=== PATIENT | female | born 1940 | race Caucasian/White ===

== ENCOUNTER 2016-12-20 12:21 | Outpatient (CLI) | payer MEDICARE, OTHER | END 2016-12-20 12:22 | disposition home or self-care (01) | DX: N63 Unspecified lump in breast (principal); N60.11 Diffuse cystic mastopathy of right breast | CPT/HCPCS: 76642; G0204 ==

== ENCOUNTER 2017-02-03 | Outpatient (CLI) | payer MEDICARE, OTHER | END 2017-02-03 22:21 | disposition critical access hospital (66) | DX: R06.00 Dyspnea, unspecified (principal) | CPT/HCPCS: A0425; A0427 ==

== ENCOUNTER 2017-02-03 22:34 | Inpatient (IN) | payer MEDICARE, OTHER ==
[2017-02-03] MEDS ORDERED: methylPREDNISolone SUCCINATE 125 MG/2 ML VIAL IVP ONE (22:43)
[2017-02-03] MEDS ORDERED: ALBUTEROL NEB 2.5 MG/3 ML INH ONE (22:44)
[2017-02-03] MEDS ORDERED: IPRATROPIUM/ALBUTEROL 3 ML NEB INH STA (23:19)
[2017-02-03] MEDS ORDERED: methylPREDNISolone SUCCINATE 125 MG/2 ML VIAL IVP STA (23:19)
[2017-02-03] MEDS ORDERED: ALBUTEROL NEB 2.5 MG/3 ML INH STA ×3 (23:24→23:50)
[2017-02-04] MEDS ORDERED: ALBUTEROL NEB 2.5 MG/3 ML INH ONE ×2 (00:21→00:30)
[2017-02-04] MEDS ORDERED: cefTRIAXone 1 GM in SODIUM CHLORIDE 0.9% MINIBAG 100 ML IV STA (00:36)
[2017-02-04] MEDS ORDERED: cefTRIAXone 1 GM VIAL ONE (00:40)
[2017-02-04] MEDS ORDERED: ACETAMINOPHEN 325 MG TABLET PO PRN (00:49)
[2017-02-04] MEDS ORDERED: IPRATROPIUM/ALBUTEROL 3 ML NEB INH SCH ×2 (01:00→02:00)
[2017-02-04] MEDS ORDERED: AZITHROMYCIN INJ 500 MG in SODIUM CHLORIDE 0.9% 250 ML IV STA (01:01)
[2017-02-04] MEDS ORDERED: diphenhydrAMINE 25 MG CAPSULE PO PRN (01:26)
[2017-02-04] MEDS ORDERED: SODIUM CHLORIDE 0.9% 1,000 ML IV SCH (02:00)
[2017-02-04] MEDS: guaiFENesin 600 MG TABLET PO PRN (02:05)
[2017-02-04] MEDS ORDERED: FUROSEMIDE 20 MG/2 ML VIAL IVP SCH (05:00)
[2017-02-04] MEDS: SODIUM CHLORIDE FLUSH 0.9% 10 ML SYRINGE IVP SCH ×3 (05:30→22:30)
[2017-02-04] MEDS: PANTOPRAZOLE 40 MG TABLET PO SCH (06:39)
[2017-02-04] MEDS: oxyCODONE ER 10 MG TABLET PO SCH ×3 (06:39→22:29)
[2017-02-04] MEDS ORDERED: BUDESONIDE 0.5 MG/2 ML NEB INH SCH (07:00)
[2017-02-04] MEDS: ALBUTEROL NEB 2.5 MG/3 ML INH PRN ×2 (07:46→20:35)
[2017-02-04] MEDS: FORMOTEROL FUMARATE NEB 20 MCG/2 ML INH SCH ×2 (07:46→20:35)
[2017-02-04] MEDS ORDERED: prednisoLONE 1% OPHTH DROPS 75 DROPS/5 ML BOTTLE LEFTEYE SCH (09:00)
[2017-02-04] MEDS ORDERED: IOPAMIDOL-300 100 ML VIAL IVP ONE (09:24)
[2017-02-04] MEDS: MAGNESIUM SULFATE 2 GRAM 50 ML IV SCH ×2 (09:59→10:17)
[2017-02-04] MEDS: methylPREDNISolone SUCCINATE 40 MG/ML VIAL IVP SCH ×2 (10:13→22:29)
[2017-02-04] MEDS: ENOXAPARIN 40 MG/0.4 ML SYRINGE SUBQ SCH (10:13)
[2017-02-04] MEDS: prednisoLONE 1% OPHTH DROPS 75 DROPS/5 ML BOTTLE LEFTEYE SCH ×4 (10:14→22:27)
[2017-02-04] MEDS: POLYETHYLENE GLYCOL 3350 17 GM PACKET PO SCH (10:14)
[2017-02-04] MEDS: POLYMYXIN B/TRIMETH OPHTH DROPS LEFTEYE SCH ×4 (10:15→22:27)
[2017-02-04] MEDS: SACCHAROMYCES BOULARDII 250 MG CAPSULE PO SCH ×2 (10:15→17:23)
[2017-02-04] MEDS: CALCIUM CARBONATE CHEW 500 MG TABLET PO SCH ×2 (10:15→22:29)
[2017-02-04] MEDS: miSOPROStol 200 MCG TABLET PO SCH (10:16)
[2017-02-04] MEDS: CHOLECALCIFEROL 1,000 UNIT TABLET PO SCH (10:16)
[2017-02-04] MEDS: DOCUSATE SODIUM 250 MG CAPSULE PO SCH (10:16)
[2017-02-04] MEDS: FERROUS SULFATE 325 MG TABLET PO SCH ×2 (10:16→17:23)
[2017-02-04] MEDS: ESCITALOPRAM 10 MG TABLET PO SCH (10:16)
[2017-02-04] MEDS: DICLOFENAC SODIUM DR 75 MG TABLET PO SCH (10:30)
[2017-02-04] MEDS ORDERED: A & D OINTMENT 5 GM PACKET TOP ONE (15:54)
[2017-02-04] MEDS ORDERED: traZODone 50 MG TABLET PO SCH ×2 (21:00)
[2017-02-04] MEDS: ZOLPIDEM 5 MG TABLET PO PRN (22:39)
[2017-02-05] MEDS: PANTOPRAZOLE 40 MG TABLET PO SCH (06:40)
[2017-02-05] MEDS: SODIUM CHLORIDE FLUSH 0.9% 10 ML SYRINGE IVP SCH ×3 (06:40→21:49)
[2017-02-05] MEDS: oxyCODONE ER 10 MG TABLET PO SCH ×3 (06:40→21:49)
[2017-02-05] MEDS: FORMOTEROL FUMARATE NEB 20 MCG/2 ML INH SCH ×2 (07:15→21:05)
[2017-02-05] MEDS: ALBUTEROL NEB 2.5 MG/3 ML INH SCH ×4 (07:15→21:07)
[2017-02-05] MEDS: POLYETHYLENE GLYCOL 3350 17 GM PACKET PO SCH (08:56)
[2017-02-05] MEDS: CALCIUM CARBONATE CHEW 500 MG TABLET PO SCH ×2 (08:58→21:48)
[2017-02-05] MEDS: POLYMYXIN B/TRIMETH OPHTH DROPS LEFTEYE SCH ×4 (08:59→21:48)
[2017-02-05] MEDS: prednisoLONE 1% OPHTH DROPS 75 DROPS/5 ML BOTTLE LEFTEYE SCH ×4 (08:59→21:48)
[2017-02-05] MEDS: FERROUS SULFATE 325 MG TABLET PO SCH ×2 (08:59→17:56)
[2017-02-05] MEDS: SACCHAROMYCES BOULARDII 250 MG CAPSULE PO SCH ×2 (08:59→17:56)
[2017-02-05] MEDS: DOCUSATE SODIUM 250 MG CAPSULE PO SCH (09:02)
[2017-02-05] MEDS: DICLOFENAC SODIUM DR 75 MG TABLET PO SCH (09:02)
[2017-02-05] MEDS: CHOLECALCIFEROL 1,000 UNIT TABLET PO SCH (09:02)
[2017-02-05] MEDS: ESCITALOPRAM 10 MG TABLET PO SCH (09:03)
[2017-02-05] MEDS: cefTRIAXone 2 GM in SODIUM CHLORIDE 0.9% MINIBAG 100 ML IV SCH (09:03)
[2017-02-05] MEDS: ENOXAPARIN 40 MG/0.4 ML SYRINGE SUBQ SCH (09:03)
[2017-02-05] MEDS: miSOPROStol 200 MCG TABLET PO SCH (09:03)
[2017-02-05] MEDS: methylPREDNISolone SUCCINATE 40 MG/ML VIAL IVP SCH ×2 (09:04→21:48)
[2017-02-05] MEDS ORDERED: [UNRECOGNIZED DRUG - OTHER] PO SCH (10:45)
[2017-02-05] MEDS ORDERED: DICLOFENAC SODIUM PO SCH (10:45)
[2017-02-05] MEDS ORDERED: diphenhydrAMINE 25 MG CAPSULE PO PRN (10:45)
[2017-02-05] MEDS ORDERED: ZOLPIDEM 5 MG TABLET PO PRN (10:45)
[2017-02-05] MEDS ORDERED: MISOPROSTOL PO SCH (10:45)
[2017-02-05] MEDS ORDERED: ACETAMINOPHEN 325 MG TABLET PO PRN (11:34)
[2017-02-05] MEDS: SODIUM CHLORIDE 0.45% 1,000 ML IV SCH (12:19)
[2017-02-05] MEDS: AZITHROMYCIN INJ 500 MG in SODIUM CHLORIDE 0.9% 250 ML IV SCH (13:47)
[2017-02-05] MEDS: ONDANSETRON 4 MG/2 ML VIAL IVP PRN (14:34)
[2017-02-05] MEDS ORDERED: traZODone 50 MG TABLET PO SCH (21:00)
[2017-02-05] MEDS: traZODone 50 MG TABLET PO SCH (21:48)
[2017-02-05] MEDS: ATORVASTATIN 10 MG TABLET PO SCH (21:48)
[2017-02-05] MEDS: ZOLPIDEM 5 MG TABLET PO PRN (22:06)
[2017-02-06] MEDS: SODIUM CHLORIDE 0.45% 1,000 ML IV SCH ×2 (02:28→16:19)
[2017-02-06] MEDS: SODIUM CHLORIDE FLUSH 0.9% 10 ML SYRINGE IVP SCH ×3 (04:26→21:40)
[2017-02-06] MEDS: PANTOPRAZOLE 40 MG TABLET PO SCH (05:54)
[2017-02-06] MEDS: oxyCODONE ER 10 MG TABLET PO SCH ×3 (05:54→21:52)
[2017-02-06] MEDS: FORMOTEROL FUMARATE NEB 20 MCG/2 ML INH SCH ×2 (07:48→20:15)
[2017-02-06] MEDS: ALBUTEROL NEB 2.5 MG/3 ML INH PRN (07:49)
[2017-02-06] MEDS: ENOXAPARIN 40 MG/0.4 ML SYRINGE SUBQ SCH (09:59)
[2017-02-06] MEDS: POLYETHYLENE GLYCOL 3350 17 GM PACKET PO SCH (09:59)
[2017-02-06] MEDS: SACCHAROMYCES BOULARDII 250 MG CAPSULE PO SCH ×2 (10:00→16:19)
[2017-02-06] MEDS: CALCIUM CARBONATE CHEW 500 MG TABLET PO SCH ×2 (10:00→21:44)
[2017-02-06] MEDS: FERROUS SULFATE 325 MG TABLET PO SCH ×2 (10:00→16:20)
[2017-02-06] MEDS: CHOLECALCIFEROL 1,000 UNIT TABLET PO SCH (10:00)
[2017-02-06] MEDS: DICLOFENAC SODIUM DR 75 MG TABLET PO SCH (10:01)
[2017-02-06] MEDS: DOCUSATE SODIUM 250 MG CAPSULE PO SCH (10:01)
[2017-02-06] MEDS: CITALOPRAM 10 MG TABLET PO SCH (10:01)
[2017-02-06] MEDS: miSOPROStol 200 MCG TABLET PO SCH (10:01)
[2017-02-06] MEDS: cefTRIAXone 2 GM in SODIUM CHLORIDE 0.9% MINIBAG 100 ML IV SCH (10:02)
[2017-02-06] MEDS: methylPREDNISolone SUCCINATE 40 MG/ML VIAL IVP SCH ×3 (10:02→21:45)
[2017-02-06] MEDS: POLYMYXIN B/TRIMETH OPHTH DROPS LEFTEYE SCH ×4 (10:03→21:44)
[2017-02-06] MEDS: prednisoLONE 1% OPHTH DROPS 75 DROPS/5 ML BOTTLE LEFTEYE SCH ×4 (10:03→21:43)
[2017-02-06] MEDS: AZITHROMYCIN INJ 500 MG in SODIUM CHLORIDE 0.9% 250 ML IV SCH (10:53)
[2017-02-06] MEDS ORDERED: MORPHINE 2 MG/ML SYRINGE IVP PRN (10:54)
[2017-02-06] MEDS: IPRATROPIUM/ALBUTEROL 3 ML NEB INH SCH ×4 (11:12→20:15)
[2017-02-06] MEDS: MORPHINE 2 MG/ML SYRINGE IVP PRN (11:50)
[2017-02-06] MEDS: HYDROcod/ACETAM 5/325 MG TABLET PO PRN (16:19)
[2017-02-06] MEDS: guaiFENesin 600 MG TABLET PO PRN (16:20)
[2017-02-06] MEDS ORDERED: PIPERACILLIN/TAZOBACTAM 3.375 GM in SODIUM CHLORIDE 0.9% MINIBAG 100 ML IV ONE (19:00)
[2017-02-06] MEDS: PIPERACILLIN/TAZOBACTAM 3.375 GM in SODIUM CHLORIDE 0.9% MINIBAG 100 ML IV SCH (20:12)
[2017-02-06] MEDS: traZODone 50 MG TABLET PO SCH (21:44)
[2017-02-06] MEDS: ATORVASTATIN 10 MG TABLET PO SCH (21:44)
[2017-02-06] MEDS: ZOLPIDEM 5 MG TABLET PO PRN (21:44)
[2017-02-07] MEDS: MORPHINE 2 MG/ML SYRINGE IVP PRN (00:29)
[2017-02-07] MEDS: IPRATROPIUM/ALBUTEROL 3 ML NEB INH SCH ×6 (01:00→16:45)
[2017-02-07] MEDS: PIPERACILLIN/TAZOBACTAM 3.375 GM in SODIUM CHLORIDE 0.9% MINIBAG 100 ML IV SCH (03:47)
[2017-02-07] MEDS: HYDROcod/ACETAM 5/325 MG TABLET PO PRN ×2 (03:54→19:52)
[2017-02-07] MEDS: SODIUM CHLORIDE 0.45% 1,000 ML IV SCH (05:01)
[2017-02-07] MEDS: PANTOPRAZOLE 40 MG TABLET PO SCH (06:27)
[2017-02-07] MEDS: SODIUM CHLORIDE FLUSH 0.9% 10 ML SYRINGE IVP SCH ×3 (06:27→22:33)
[2017-02-07] MEDS: oxyCODONE ER 10 MG TABLET PO SCH ×3 (06:27→22:32)
[2017-02-07] MEDS: methylPREDNISolone SUCCINATE 40 MG/ML VIAL IVP SCH ×3 (06:27→22:33)
[2017-02-07] MEDS: ONDANSETRON 4 MG/2 ML VIAL IVP PRN (07:53)
[2017-02-07] MEDS: CHOLECALCIFEROL 1,000 UNIT TABLET PO SCH (08:36)
[2017-02-07] MEDS: miSOPROStol 200 MCG TABLET PO SCH (08:37)
[2017-02-07] MEDS: DICLOFENAC SODIUM DR 75 MG TABLET PO SCH (08:37)
[2017-02-07] MEDS: CALCIUM CARBONATE CHEW 500 MG TABLET PO SCH ×2 (08:38→20:02)
[2017-02-07] MEDS: ENOXAPARIN 40 MG/0.4 ML SYRINGE SUBQ SCH (08:38)
[2017-02-07] MEDS: FERROUS SULFATE 325 MG TABLET PO SCH ×2 (08:40→17:43)
[2017-02-07] MEDS: DOCUSATE SODIUM 250 MG CAPSULE PO SCH (08:40)
[2017-02-07] MEDS: SACCHAROMYCES BOULARDII 250 MG CAPSULE PO SCH ×2 (08:40→17:43)
[2017-02-07] MEDS: CITALOPRAM 10 MG TABLET PO SCH (08:40)
[2017-02-07] MEDS: POLYETHYLENE GLYCOL 3350 17 GM PACKET PO SCH (08:41)
[2017-02-07] MEDS: prednisoLONE 1% OPHTH DROPS 75 DROPS/5 ML BOTTLE LEFTEYE SCH ×4 (08:43→21:23)
[2017-02-07] MEDS: POLYMYXIN B/TRIMETH OPHTH DROPS LEFTEYE SCH ×4 (08:44→21:20)
[2017-02-07] MEDS ORDERED: FUROSEMIDE 40 MG/4 ML VIAL IVP ONE (08:45)
[2017-02-07] MEDS ORDERED: cefTRIAXone 2 GM in SODIUM CHLORIDE 0.9% MINIBAG 100 ML IV SCH (09:00)
[2017-02-07] MEDS: AZITHROMYCIN INJ 500 MG in SODIUM CHLORIDE 0.9% 250 ML IV SCH (09:31)
[2017-02-07] MEDS: FORMOTEROL FUMARATE NEB 20 MCG/2 ML INH SCH ×2 (09:39→16:45)
[2017-02-07] MEDS: CLINDAMYCIN 600 MG/50 ML 50 ML IV SCH ×3 (11:35→23:43)
[2017-02-07] MEDS ORDERED: CLINDAMYCIN INJ 300 MG in SODIUM CHLORIDE 0.9% 50 ML IV SCH (12:00)
[2017-02-07] MEDS: FUROSEMIDE 20 MG TABLET PO SCH (13:52)
[2017-02-07] MEDS: SODIUM CHLORIDE FLUSH 0.9% 10 ML SYRINGE IVP PRN ×2 (17:47→17:50)
[2017-02-07] MEDS: METOPROLOL SUCCINATE 25 MG TABLET PO SCH (21:20)
[2017-02-07] MEDS: ATORVASTATIN 10 MG TABLET PO SCH (21:20)
[2017-02-07] MEDS: traZODone 50 MG TABLET PO SCH (22:32)
[2017-02-07] MEDS: ZOLPIDEM 5 MG TABLET PO PRN (22:32)
[2017-02-08] MEDS: oxyCODONE ER 10 MG TABLET PO SCH ×3 (06:07→22:27)
[2017-02-08] MEDS: PANTOPRAZOLE 40 MG TABLET PO SCH (06:07)
[2017-02-08] MEDS: FUROSEMIDE 20 MG TABLET PO SCH ×2 (06:07→13:24)
[2017-02-08] MEDS: SODIUM CHLORIDE FLUSH 0.9% 10 ML SYRINGE IVP SCH ×3 (06:07→10:44)
[2017-02-08] MEDS: methylPREDNISolone SUCCINATE 40 MG/ML VIAL IVP SCH ×3 (06:07→22:28)
[2017-02-08] MEDS: CLINDAMYCIN 600 MG/50 ML 50 ML IV SCH ×3 (07:16→17:29)
[2017-02-08] MEDS: HYDROcod/ACETAM 5/325 MG TABLET PO PRN (07:22)
[2017-02-08] MEDS: POLYMYXIN B/TRIMETH OPHTH DROPS LEFTEYE SCH ×4 (08:35→21:25)
[2017-02-08] MEDS: miSOPROStol 200 MCG TABLET PO SCH (08:36)
[2017-02-08] MEDS: DICLOFENAC SODIUM DR 75 MG TABLET PO SCH (08:36)
[2017-02-08] MEDS: FERROUS SULFATE 325 MG TABLET PO SCH ×2 (08:36→17:25)
[2017-02-08] MEDS: SACCHAROMYCES BOULARDII 250 MG CAPSULE PO SCH ×2 (08:37→17:24)
[2017-02-08] MEDS: METOPROLOL SUCCINATE 25 MG TABLET PO SCH ×2 (08:37→21:30)
[2017-02-08] MEDS: DOCUSATE SODIUM 250 MG CAPSULE PO SCH (08:37)
[2017-02-08] MEDS: CITALOPRAM 10 MG TABLET PO SCH (08:37)
[2017-02-08] MEDS: CHOLECALCIFEROL 1,000 UNIT TABLET PO SCH (08:38)
[2017-02-08] MEDS: ENOXAPARIN 40 MG/0.4 ML SYRINGE SUBQ SCH (08:40)
[2017-02-08] MEDS: CALCIUM CARBONATE CHEW 500 MG TABLET PO SCH ×2 (08:41→21:26)
[2017-02-08] MEDS: POLYETHYLENE GLYCOL 3350 17 GM PACKET PO SCH (08:41)
[2017-02-08] MEDS: prednisoLONE 1% OPHTH DROPS 75 DROPS/5 ML BOTTLE LEFTEYE SCH ×4 (08:42→21:32)
[2017-02-08] MEDS: AZITHROMYCIN INJ 500 MG in SODIUM CHLORIDE 0.9% 250 ML IV SCH (09:40)
[2017-02-08] MEDS: FORMOTEROL FUMARATE NEB 20 MCG/2 ML INH SCH ×2 (09:54→20:55)
[2017-02-08] MEDS: IPRATROPIUM/ALBUTEROL 3 ML NEB INH SCH ×4 (09:55→21:09)
[2017-02-08] MEDS: ONDANSETRON 4 MG/2 ML VIAL IVP PRN (10:44)
[2017-02-08] MEDS ORDERED: SODIUM CHLORIDE 0.9% 100ML 100 ML IV ONE (17:11)
[2017-02-08] MEDS: guaiFENesin 600 MG TABLET PO PRN (17:24)
[2017-02-08] MEDS: SODIUM CHLORIDE FLUSH 0.9% 10 ML SYRINGE IVP PRN ×2 (17:27→22:28)
[2017-02-08] MEDS: ATORVASTATIN 10 MG TABLET PO SCH (21:26)
[2017-02-08] MEDS: DIPHENOX/ATROPINE 2.5/0.025 MG TABLET PO PRN (21:26)
[2017-02-08] MEDS: traZODone 50 MG TABLET PO SCH (22:27)
[2017-02-08] MEDS: ZOLPIDEM 5 MG TABLET PO PRN (22:27)
[2017-02-09] MEDS: CLINDAMYCIN 600 MG/50 ML 50 ML IV SCH ×3 (00:22→13:05)
[2017-02-09] MEDS: oxyCODONE ER 10 MG TABLET PO SCH ×3 (06:17→22:14)
[2017-02-09] MEDS: FUROSEMIDE 20 MG TABLET PO SCH ×2 (06:17→14:29)
[2017-02-09] MEDS: SODIUM CHLORIDE FLUSH 0.9% 10 ML SYRINGE IVP SCH ×3 (06:17→22:14)
[2017-02-09] MEDS: PANTOPRAZOLE 40 MG TABLET PO SCH (06:17)
[2017-02-09] MEDS: methylPREDNISolone SUCCINATE 40 MG/ML VIAL IVP SCH ×2 (06:17→14:30)
[2017-02-09] MEDS: IPRATROPIUM/ALBUTEROL 3 ML NEB INH SCH ×4 (07:45→20:10)
[2017-02-09] MEDS: FORMOTEROL FUMARATE NEB 20 MCG/2 ML INH SCH ×2 (07:49→20:10)
[2017-02-09] MEDS: DOCUSATE SODIUM 250 MG CAPSULE PO SCH (07:54)
[2017-02-09] MEDS: POLYETHYLENE GLYCOL 3350 17 GM PACKET PO SCH (07:55)
[2017-02-09] MEDS: SACCHAROMYCES BOULARDII 250 MG CAPSULE PO SCH ×2 (09:47→17:24)
[2017-02-09] MEDS: METOPROLOL SUCCINATE 25 MG TABLET PO SCH ×2 (09:47→21:59)
[2017-02-09] MEDS: CALCIUM CARBONATE CHEW 500 MG TABLET PO SCH ×2 (09:47→21:55)
[2017-02-09] MEDS: CITALOPRAM 10 MG TABLET PO SCH (09:48)
[2017-02-09] MEDS: AZITHROMYCIN INJ 500 MG in SODIUM CHLORIDE 0.9% 250 ML IV SCH (09:48)
[2017-02-09] MEDS: miSOPROStol 200 MCG TABLET PO SCH (09:48)
[2017-02-09] MEDS: DICLOFENAC SODIUM DR 75 MG TABLET PO SCH (09:48)
[2017-02-09] MEDS: FERROUS SULFATE 325 MG TABLET PO SCH ×2 (09:48→17:24)
[2017-02-09] MEDS: ENOXAPARIN 40 MG/0.4 ML SYRINGE SUBQ SCH (09:48)
[2017-02-09] MEDS: SODIUM CHLORIDE FLUSH 0.9% 10 ML SYRINGE IVP PRN ×3 (09:48→19:06)
[2017-02-09] MEDS: POLYMYXIN B/TRIMETH OPHTH DROPS LEFTEYE SCH ×4 (09:52→21:53)
[2017-02-09] MEDS: prednisoLONE 1% OPHTH DROPS 75 DROPS/5 ML BOTTLE LEFTEYE SCH ×4 (09:52→21:58)
[2017-02-09] MEDS: CHOLECALCIFEROL 1,000 UNIT TABLET PO SCH (10:18)
[2017-02-09] MEDS: MORPHINE 2 MG/ML SYRINGE IVP PRN (13:04)
[2017-02-09] MEDS ORDERED: POTASSIUM CHLORIDE 20 MEQ TABLET PO SCH (14:00)
[2017-02-09] MEDS: guaiFENesin 600 MG TABLET PO SCH ×2 (14:30→21:53)
[2017-02-09] MEDS ORDERED: FUROSEMIDE 20 MG/2 ML VIAL IVP SCH (16:00)
[2017-02-09] MEDS: predniSONE 20 MG TABLET PO SCH (16:19)
[2017-02-09] MEDS: VANCOMYCIN INJ 1 GM in SODIUM CHLORIDE 0.9% 250 ML IV SCH (17:24)
[2017-02-09] MEDS: HYDROcod/ACETAM 5/325 MG TABLET PO PRN (19:21)
[2017-02-09] MEDS: ATORVASTATIN 10 MG TABLET PO SCH (21:53)
[2017-02-09] MEDS: ZOLPIDEM 5 MG TABLET PO PRN (22:14)
[2017-02-09] MEDS: traZODone 50 MG TABLET PO SCH (22:14)
[2017-02-10] MEDS: DIPHENOX/ATROPINE 2.5/0.025 MG TABLET PO PRN ×5 (03:41→19:37)
[2017-02-10] MEDS: oxyCODONE ER 10 MG TABLET PO SCH ×3 (05:54→22:22)
[2017-02-10] MEDS: FUROSEMIDE 20 MG TABLET PO SCH ×2 (05:54→14:14)
[2017-02-10] MEDS: SODIUM CHLORIDE FLUSH 0.9% 10 ML SYRINGE IVP SCH ×3 (06:00→22:22)
[2017-02-10] MEDS: PANTOPRAZOLE 40 MG TABLET PO SCH (06:00)
[2017-02-10] MEDS: FERROUS SULFATE 325 MG TABLET PO SCH ×2 (07:49→17:46)
[2017-02-10] MEDS: SACCHAROMYCES BOULARDII 250 MG CAPSULE PO SCH ×2 (07:50→17:46)
[2017-02-10] MEDS: predniSONE 20 MG TABLET PO SCH (07:50)
[2017-02-10] MEDS: HYDROcod/ACETAM 5/325 MG TABLET PO PRN ×2 (07:50→20:09)
[2017-02-10] MEDS: diphenhydrAMINE 25 MG CAPSULE PO PRN (07:51)
[2017-02-10] MEDS: FORMOTEROL FUMARATE NEB 20 MCG/2 ML INH SCH ×2 (07:51→19:50)
[2017-02-10] MEDS: IPRATROPIUM/ALBUTEROL 3 ML NEB INH SCH ×4 (07:51→19:50)
[2017-02-10] MEDS: prednisoLONE 1% OPHTH DROPS 75 DROPS/5 ML BOTTLE LEFTEYE SCH ×4 (08:48→20:40)
[2017-02-10] MEDS: POLYMYXIN B/TRIMETH OPHTH DROPS LEFTEYE SCH ×4 (08:49→20:35)
[2017-02-10] MEDS: ENOXAPARIN 40 MG/0.4 ML SYRINGE SUBQ SCH (08:49)
[2017-02-10] MEDS: DICLOFENAC SODIUM DR 75 MG TABLET PO SCH (08:50)
[2017-02-10] MEDS: CHOLECALCIFEROL 1,000 UNIT TABLET PO SCH (08:50)
[2017-02-10] MEDS: METOPROLOL SUCCINATE 25 MG TABLET PO SCH ×2 (08:50→20:40)
[2017-02-10] MEDS: CITALOPRAM 10 MG TABLET PO SCH (08:50)
[2017-02-10] MEDS: guaiFENesin 600 MG TABLET PO SCH ×2 (08:50→20:36)
[2017-02-10] MEDS: CALCIUM CARBONATE CHEW 500 MG TABLET PO SCH ×2 (08:50→20:40)
[2017-02-10] MEDS: miSOPROStol 200 MCG TABLET PO SCH (08:50)
[2017-02-10] MEDS ORDERED: SODIUM CHLORIDE 0.9% 250 ML IV ONE (09:02)
[2017-02-10] MEDS: AZITHROMYCIN INJ 500 MG in SODIUM CHLORIDE 0.9% 250 ML IV SCH (09:11)
[2017-02-10] MEDS: SODIUM CHLORIDE FLUSH 0.9% 10 ML SYRINGE IVP PRN ×2 (09:16→17:46)
[2017-02-10] MEDS: POLYETHYLENE GLYCOL 3350 17 GM PACKET PO SCH (10:36)
[2017-02-10] MEDS: DOCUSATE SODIUM 250 MG CAPSULE PO SCH (10:36)
[2017-02-10] MEDS ORDERED: POTASSIUM CHLORIDE 20 MEQ TABLET PO SCH (15:00)
[2017-02-10] MEDS: POTASSIUM CHLORIDE 20 MEQ TABLET PO SCH ×2 (15:50→22:21)
[2017-02-10] MEDS: VANCOMYCIN INJ 1 GM in SODIUM CHLORIDE 0.9% 250 ML IV SCH (17:46)
[2017-02-10] MEDS: ATORVASTATIN 10 MG TABLET PO SCH (20:40)
[2017-02-10] MEDS: traZODone 50 MG TABLET PO SCH (22:21)
[2017-02-10] MEDS: ZOLPIDEM 5 MG TABLET PO PRN (22:22)
[2017-02-11] MEDS: SODIUM CHLORIDE FLUSH 0.9% 10 ML SYRINGE IVP SCH ×3 (05:58→22:19)
[2017-02-11] MEDS: FUROSEMIDE 20 MG TABLET PO SCH ×2 (05:59→14:23)
[2017-02-11] MEDS: oxyCODONE ER 10 MG TABLET PO SCH ×3 (05:59→22:19)
[2017-02-11] MEDS: PANTOPRAZOLE 40 MG TABLET PO SCH (06:00)
[2017-02-11] MEDS: CHOLECALCIFEROL 1,000 UNIT TABLET PO SCH (08:48)
[2017-02-11] MEDS: HYDROcod/ACETAM 5/325 MG TABLET PO PRN ×2 (08:48→20:46)
[2017-02-11] MEDS: SACCHAROMYCES BOULARDII 250 MG CAPSULE PO SCH ×2 (08:48→17:41)
[2017-02-11] MEDS: DICLOFENAC SODIUM DR 75 MG TABLET PO SCH (08:49)
[2017-02-11] MEDS: LISINOPRIL 5 MG TABLET PO SCH (08:49)
[2017-02-11] MEDS: CITALOPRAM 10 MG TABLET PO SCH (08:50)
[2017-02-11] MEDS: METOPROLOL SUCCINATE 25 MG TABLET PO SCH ×2 (08:50→20:58)
[2017-02-11] MEDS: guaiFENesin 600 MG TABLET PO SCH ×2 (08:50→20:52)
[2017-02-11] MEDS: FERROUS SULFATE 325 MG TABLET PO SCH ×2 (08:50→17:41)
[2017-02-11] MEDS: miSOPROStol 200 MCG TABLET PO SCH (08:50)
[2017-02-11] MEDS: POLYMYXIN B/TRIMETH OPHTH DROPS LEFTEYE SCH ×4 (08:51→21:03)
[2017-02-11] MEDS: prednisoLONE 1% OPHTH DROPS 75 DROPS/5 ML BOTTLE LEFTEYE SCH ×4 (08:53→20:58)
[2017-02-11] MEDS: CALCIUM CARBONATE CHEW 500 MG TABLET PO SCH ×2 (08:53→20:52)
[2017-02-11] MEDS: ENOXAPARIN 40 MG/0.4 ML SYRINGE SUBQ SCH (08:54)
[2017-02-11] MEDS: POLYETHYLENE GLYCOL 3350 17 GM PACKET PO SCH (08:56)
[2017-02-11] MEDS: IPRATROPIUM/ALBUTEROL 3 ML NEB INH SCH ×4 (09:15→20:00)
[2017-02-11] MEDS: FORMOTEROL FUMARATE NEB 20 MCG/2 ML INH SCH ×2 (09:15→20:00)
[2017-02-11] MEDS: DOCUSATE SODIUM 250 MG CAPSULE PO SCH (10:03)
[2017-02-11] MEDS: DIPHENOX/ATROPINE 2.5/0.025 MG TABLET PO PRN ×5 (10:43→22:52)
[2017-02-11] MEDS: VANCOMYCIN INJ 1 GM in SODIUM CHLORIDE 0.9% 250 ML IV SCH (18:25)
[2017-02-11] MEDS: ATORVASTATIN 10 MG TABLET PO SCH (20:52)
[2017-02-11] MEDS: diphenhydrAMINE 25 MG CAPSULE PO PRN (21:02)
[2017-02-11] MEDS: traZODone 50 MG TABLET PO SCH (22:19)
[2017-02-11] MEDS: ZOLPIDEM 5 MG TABLET PO PRN (22:19)
[2017-02-12] MEDS: PANTOPRAZOLE 40 MG TABLET PO SCH (06:15)
[2017-02-12] MEDS: SODIUM CHLORIDE FLUSH 0.9% 10 ML SYRINGE IVP SCH ×2 (06:16→14:15)
[2017-02-12] MEDS: FUROSEMIDE 20 MG TABLET PO SCH ×2 (06:16→14:14)
[2017-02-12] MEDS: oxyCODONE ER 10 MG TABLET PO SCH (06:16)
[2017-02-12] MEDS: DIPHENOX/ATROPINE 2.5/0.025 MG TABLET PO PRN (07:40)
[2017-02-12] MEDS: LISINOPRIL 5 MG TABLET PO SCH (08:30)
[2017-02-12] MEDS: HYDROcod/ACETAM 5/325 MG TABLET PO PRN ×2 (08:31→12:05)
[2017-02-12] MEDS: guaiFENesin 600 MG TABLET PO SCH (08:31)
[2017-02-12] MEDS: SACCHAROMYCES BOULARDII 250 MG CAPSULE PO SCH (08:31)
[2017-02-12] MEDS: FERROUS SULFATE 325 MG TABLET PO SCH (08:32)
[2017-02-12] MEDS: miSOPROStol 200 MCG TABLET PO SCH (08:32)
[2017-02-12] MEDS: DICLOFENAC SODIUM DR 75 MG TABLET PO SCH (08:32)
[2017-02-12] MEDS: CITALOPRAM 10 MG TABLET PO SCH (08:32)
[2017-02-12] MEDS: CHOLECALCIFEROL 1,000 UNIT TABLET PO SCH (08:33)
[2017-02-12] MEDS: POLYMYXIN B/TRIMETH OPHTH DROPS LEFTEYE SCH ×2 (08:34→13:28)
[2017-02-12] MEDS: CALCIUM CARBONATE CHEW 500 MG TABLET PO SCH (08:34)
[2017-02-12] MEDS: ENOXAPARIN 40 MG/0.4 ML SYRINGE SUBQ SCH (08:34)
[2017-02-12] MEDS: prednisoLONE 1% OPHTH DROPS 75 DROPS/5 ML BOTTLE LEFTEYE SCH ×2 (08:34→13:27)
[2017-02-12] MEDS: POLYETHYLENE GLYCOL 3350 17 GM PACKET PO SCH (08:35)
[2017-02-12] MEDS: METOPROLOL SUCCINATE 25 MG TABLET PO SCH (08:37)
[2017-02-12] MEDS: DOCUSATE SODIUM 250 MG CAPSULE PO SCH (08:37)
[2017-02-12] MEDS: FORMOTEROL FUMARATE NEB 20 MCG/2 ML INH SCH (10:51)
[2017-02-12] MEDS: IPRATROPIUM/ALBUTEROL 3 ML NEB INH SCH ×3 (10:51→14:45)
[2017-02-12] MEDS ORDERED: oxyCODONE 5 MG TABLET PO PRN (13:20)
[2017-02-12] MEDS ORDERED: SIMETHICONE 40 MG/0.6 ML 30 ML BOTTLE PO PRN (13:21)
[2017-02-12] MEDS ORDERED: SIMETHICONE CHEW 80 MG TABLET PO PRN (14:00)
== END 2017-02-12 16:02 | disposition home or self-care (01) | DRG 190 ==
DX: J44.9 Chronic obstructive pulmonary disease, unspecified (principal); J18.9 Pneumonia, unspecified organism; E78.00 Pure hypercholesterolemia, unspecified; J96.21 Acute and chronic respiratory failure with hypoxia; M19.90 Unspecified osteoarthritis, unspecified site; J15.211 Pneumonia due to Methicillin susceptible Staphylococcus aureus; J44.0 Chronic obstructive pulmonary disease with (acute) lower respiratory infection; J44.1 Chronic obstructive pulmonary disease with (acute) exacerbation; K52.1 Toxic gastroenteritis and colitis; L76.32 Postprocedural hematoma of skin and subcutaneous tissue following other procedure; I50.9 Heart failure, unspecified; T36.8X5A Adverse effect of other systemic antibiotics, initial encounter; R79.89 Other specified abnormal findings of blood chemistry; Y84.8 Other medical procedures as the cause of abnormal reaction of the patient, or of later complication, without mention of misadventure at the time of the procedure; I27.2 Other secondary pulmonary hypertension; R73.9 Hyperglycemia, unspecified; T38.0X5A Adverse effect of glucocorticoids and synthetic analogues, initial encounter; Y92.230 Patient room in hospital as the place of occurrence of the external cause; Z99.81 Dependence on supplemental oxygen; K21.9 Gastro-esophageal reflux disease without esophagitis; G89.29 Other chronic pain; M48.00 Spinal stenosis, site unspecified; M47.9 Spondylosis, unspecified; E78.5 Hyperlipidemia, unspecified; D64.9 Anemia, unspecified; Z87.891 Personal history of nicotine dependence; Z87.898 Personal history of other specified conditions; Z79.891 Long term (current) use of opiate analgesic; Z79.51 Long term (current) use of inhaled steroids; Z79.899 Other long term (current) drug therapy; Z48.810 Encounter for surgical aftercare following surgery on the sense organs

== ENCOUNTER 2017-02-12 20:35 | Outpatient (CLI) | payer MEDICARE, OTHER | END 2017-02-12 20:36 | disposition critical access hospital (66) | DX: R10.9 Unspecified abdominal pain (principal); R11.11 Vomiting without nausea; R19.7 Diarrhea, unspecified | CPT/HCPCS: A0425; A0429 ==

== ENCOUNTER 2017-02-12 20:50 | Emergency (ER) | payer MEDICARE, OTHER ==
[2017-02-12] MEDS ORDERED: ONDANSETRON ODT 4 MG TABLET TL STA (21:52)
[2017-02-12] MEDS ORDERED: ONDANSETRON ODT 4 MG TABLET ONE (22:02)
[2017-02-13] MEDS ORDERED: oxyCODONE 5 MG TABLET PO STA (08:00)
[2017-02-13] MEDS ORDERED: oxyCODONE 5 MG TABLET ONE (08:02)
== END 2017-02-13 08:48 | disposition home or self-care (01) ==
DX: S30.1XXA Contusion of abdominal wall, initial encounter (principal); X58.XXXA Exposure to other specified factors, initial encounter; R19.7 Diarrhea, unspecified; R11.0 Nausea; J44.9 Chronic obstructive pulmonary disease, unspecified; K21.9 Gastro-esophageal reflux disease without esophagitis; E78.00 Pure hypercholesterolemia, unspecified; Z87.01 Personal history of pneumonia (recurrent)
CPT/HCPCS: 99283; 99284; A9270; Q0162

== ENCOUNTER 2017-02-19 07:38 | Outpatient (CLI) | payer MEDICARE, OTHER | END 2017-02-19 07:39 | disposition critical access hospital (66) | DX: M79.604 Pain in right leg (principal) | CPT/HCPCS: A0425; A0429 ==

== ENCOUNTER 2017-02-19 07:54 | Emergency (ER) | payer MEDICARE, OTHER ==
[2017-02-19] MEDS ORDERED: ONDANSETRON 4 MG/2 ML VIAL IVP STA (08:23)
[2017-02-19] MEDS ORDERED: SODIUM CHLORIDE 0.9% 1,000 ML IV ONE (08:23)
[2017-02-19] MEDS ORDERED: HYDROmorphone 1 MG/ML SYRINGE IVP STA (08:23)
[2017-02-19] MEDS ORDERED: HYDROmorphone 1 MG/ML SYRINGE ONE (08:37)
[2017-02-19] MEDS ORDERED: ONDANSETRON 4 MG/2 ML VIAL ONE (08:37)
[2017-02-19] MEDS ORDERED: SODIUM CHLORIDE 0.9% 500 ML IV ONE (09:41)
[2017-02-19] MEDS ORDERED: cefTRIAXone 1 GM in SODIUM CHLORIDE 0.9% MINIBAG 100 ML IV STA (11:45)
[2017-02-19] MEDS ORDERED: cefTRIAXone 1 GM VIAL ONE (11:54)
[2017-02-19] MEDS ORDERED: oxyCOD/ACETAMIN 5 MG/325 MG TABLET PO ONE (12:17)
[2017-02-19] MEDS ORDERED: oxyCOD/ACETAMIN 5 MG/325 MG TABLET PO STA (12:17)
== END 2017-02-19 13:09 | disposition home or self-care (01) ==
DX: S82.54XA Nondisplaced fracture of medial malleolus of right tibia, initial encounter for closed fracture (principal); S92.524A Nondisplaced fracture of middle phalanx of right lesser toe(s), initial encounter for closed fracture; W18.39XA Other fall on same level, initial encounter; Y93.89 Activity, other specified; Y92.099 Unspecified place in other non-institutional residence as the place of occurrence of the external cause; N30.00 Acute cystitis without hematuria; E86.0 Dehydration; K52.1 Toxic gastroenteritis and colitis; T36.95XA Adverse effect of unspecified systemic antibiotic, initial encounter; J44.9 Chronic obstructive pulmonary disease, unspecified; Z87.01 Personal history of pneumonia (recurrent)
CPT/HCPCS: 29515; 36415; 73610; 73630; 80053; 81001; 83690; 84484; 85025; 87086; 96374; 96375; 99284; A9270; J1170

== ENCOUNTER 2017-02-22 08:00 | Outpatient (CLI) | payer MEDICARE, OTHER | END 2017-02-22 23:59 | DX: R19.5 Other fecal abnormalities (principal) ==

== ENCOUNTER 2017-02-27 18:31 | Outpatient (CLI) | payer MEDICARE, OTHER | END 2017-02-27 18:32 | disposition critical access hospital (66) | DX: R06.00 Dyspnea, unspecified (principal); L29.9 Pruritus, unspecified; R21 Rash and other nonspecific skin eruption | CPT/HCPCS: A0425; A0427 ==

== ENCOUNTER 2017-02-27 18:46 | Emergency (ER) | payer MEDICARE, OTHER ==
[2017-02-27] MEDS ORDERED: methylPREDNISolone SUCCINATE 125 MG/2 ML VIAL IVP STA (18:53)
[2017-02-27] MEDS ORDERED: FAMOTIDINE 20 MG/50 ML 50 ML IV ONE ×2 (18:53→18:58)
[2017-02-27] MEDS ORDERED: methylPREDNISolone SUCCINATE 125 MG/2 ML VIAL IVP ONE (18:58)
[2017-02-27] MEDS ORDERED: diphenhydrAMINE 25 MG CAPSULE PO STA (20:51)
[2017-02-27] MEDS ORDERED: diphenhydrAMINE 25 MG CAPSULE PO ONE (20:52)
== END 2017-02-27 23:23 | disposition home or self-care (01) ==
DX: L50.9 Urticaria, unspecified (principal); R03.0 Elevated blood-pressure reading, without diagnosis of hypertension; J44.9 Chronic obstructive pulmonary disease, unspecified; Z99.81 Dependence on supplemental oxygen
CPT/HCPCS: 96374; 96375; 99284; A9270

== ENCOUNTER 2017-02-27 23:23 | Outpatient (CLI) | payer MEDICARE, OTHER | END 2017-02-27 23:24 | disposition home or self-care (01) | DX: R06.00 Dyspnea, unspecified (principal); L29.9 Pruritus, unspecified; R21 Rash and other nonspecific skin eruption | CPT/HCPCS: A0425; A0428 ==

== ENCOUNTER 2017-09-06 12:36 | Outpatient (CLI) | payer MEDICARE, OTHER | END 2017-09-06 12:37 | disposition critical access hospital (66) | LOC: EMS 12:36 | PROVIDERS: ATTEND Surgery | DX: R53.1 Weakness (principal); R11.0 Nausea; R19.7 Diarrhea, unspecified | CPT/HCPCS: A0425; A0429 ==

== ENCOUNTER 2017-09-06 12:50 | Emergency (ER) | payer MEDICARE, OTHER ==
[2017-09-06] MEDS ORDERED: IPRATROPIUM/ALBUTEROL 3 ML NEB INH STA (13:07)
[2017-09-06] MEDS ORDERED: SODIUM CHLORIDE 0.9% 1,000 ML IV ONE (13:08)
--- NOTE | 2017-09-06 13:14 | ED Physician Documentation ---
History of Present Illness - Stated complaint Stated Complaint: WEAKNESS, SOA, VOMITING - Chief complaint Chief Complaint: Resp - History obtained from History obtained from: Patient, EMS - History of Present Illness Timing: Yesterday Pain level max: 0 Pain level now: 0 Improved by: nothing Worsened by: nothing - Additonal information Additional information: Patient is a 76-year-old female with a long history of COPD who was seen by Dr. Newsome in the office yesterday, states that she feels generally weak today. Had diarrhea 1 after starting doxycycline and prednisone last night. No fevers. States that she has been coughing up clear sputum. States that she has been nauseated. She states she did not vomit today, but did have a large amount of clear sputum. I discussed the case with Dr. Newsome prior to the patient's arrival who states that the alf called her and states that the patient feels very weak had to have help walking and was 86% on room air. The patient states that she is supposed to be on 2 L of nasal cannula oxygen at home, but does not always use this. States she does not use her inhalers regularly and only uses her nebulizer once a day may be. States she has not been feeling well for the past month. Review of Systems Ten Systems: 10 systems reviewed and negative Constitutional: denies: Fever, Chills Ears: denies: Ear pain Nose: denies: Rhinorrhea / runny nose, Congestion Throat: denies: Sore throat Cardiac: denies: Chest pain / pressure, Palpitations Respiratory: reports: Cough GI: reports: Nausea ("queasy"). 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: Hysterectomy HEENT: Cataracts - Present Medications Home Medications: Ambulatory Orders Medication Instructions Recorded Confirmed Albuterol Sulfate [Proair Hfa 2 puffs INH Q4H PRN 02/04/17 02/27/17 Inhaler] Cholecalciferol (Vitamin D3) 4,000 units PO DAILY 02/04/17 02/27/17 [Vitamin D3] Diclofenac Sodium/Misoprostol 1 tab PO DAILY 02/04/17 02/27/17 [Diclofenac-Misoprost 50-200 Tb] Ipratropium/Albuterol [Duoneb] 3 ml INH Q4H PRN 02/04/17 02/27/17 Lovastatin 40 mg PO QPM 02/04/17 02/27/17 Mometasone/Formoterol [Dulera 100 1 puffs INH BID 02/04/17 02/27/17 Mcg/5 Mcg Inhaler] Omeprazole 20 mg PO DAILY 02/04/17 02/27/17 Trazodone HCl 50 mg PO QPM 02/04/17 02/27/17 diphenhydrAMINE [Benadryl] 50 mg PO QPM PRN 02/04/17 02/27/17 Albuterol 2.5 mg INH Q2H PRN #1 neb 02/12/17 02/27/17 Calcium Carbonate [Tums (Calcium 1,000 mg PO BID #120 tablet 02/12/17 02/27/17 Carbonate 500mg)] Guaifenesin [Mucinex] 600 mg PO BID #20 tab.er.12h 02/12/17 02/27/17 Pantoprazole [Protonix] 40 mg PO QDAC #30 tablet 02/12/17 02/27/17 Saccharomyces Boulardii [Florastor] 250 mg PO DAILY #60 capsule 02/12/17 oxyCODONE [Roxicodone] 5 - 10 mg PO Q4H PRN #30 tablet 02/12/17 02/27/17 Escitalopram [Lexapro] 10 mg PO DAILY 02/19/17 02/27/17 Oxycodone HCl/Acetaminophen 1 - 2 each PO Q6HR PRN #20 tablet 02/19/17 02/27/17 [Percocet 5-325 mg Tablet] Metoprolol Succinate [Toprol Xl] 25 mg PO DAILY 02/27/17 02/27/17 oxyCODONE ER [OxyCONTIN] 10 mg PO TID 02/27/17 02/27/17 - Allergies Allergies/Adverse Reactions: Allergies Allergy/AdvReac Type Severity Reaction Status Date / Time Sulfa (Sulfonamide Allergy Rash Verified 09/06/17 13:06 Antibiotics) - Social History Does the pt smoke?: No Smoking Status: Never smoker Does the pt drink ETOH?: No Does the pt have substance abuse?: No - Immunizations Immunizations are current?: Yes - POLST Patient has POLST: No PD ED PE NORMAL - Vitals Vital signs reviewed: Yes - General General: Alert and oriented X 3, No acute distress, Well developed/nourished - HEENT HEENT: PERRL, Ears normal, Moist mucous membranes, Pharynx benign - Neck Neck: Supple, no meningeal sign - Cardiac Cardiac: RRR - Respiratory Respiratory: No respiratory distress, Other (mild wheeze B) - Abdomen Abdomen: Soft, Non tender, Non distended - Derm Derm: Warm and dry - Extremities Extremities: No edema - Neuro Neuro: Alert and oriented X 3 - Psych Psych: Normal mood, Normal affect Results - Vitals Vitals: Vital Signs - 24 hr 09/06/17 09/06/17 09/06/17 12:54 13:53 14:07 Temperature 36.0 C L Heart Rate 68 79 74 Respiratory 18 15 18 Rate Blood Pressure 132/77 H 153/102 H O2 Saturation 97 99 09/06/17 09/06/17 09/06/17 15:41 15:57 16:48 Temperature Heart Rate 77 65 74 Respiratory 24 20 16 Rate Blood Pressure 114/65 124/66 O2 Saturation 95 100 Oxygen O2 Source Nasal cannula - Labs Labs: Laboratory Tests 09/06/17 09/06/17 09/06/17 13:46 13:46 14:30 WBC 9.6 RBC 4.54 Hgb 12.8 Hct 39.5 MCV 87.0 MCH 28.3 MCHC 32.5 RDW 16.5 H Plt Count 232 MPV 7.5 L Neut # 9.0 H Lymph # 0.5 L [place]cd[place] # 0.1 Eos # 0.0 Baso # 0.0 Absolute Nucleated RBC 0.02 Nucleated RBC % 0.2 Sodium 137 Potassium 4.0 Chloride 101 Carbon Dioxide 23 Anion Gap 14.0 H BUN 23 H Creatinine 1.1 H Estimated GFR (MDRD) 48 L Glucose 123 H Calcium 8.7 Phosphorus 3.3 Magnesium 1.3 L Total Bilirubin 0.9 AST 42 ALT 114 H Alkaline Phosphatase 93 Total Protein 6.1 L Albumin 3.4 Globulin 2.8 Albumin/Globulin Ratio 1.3 Lipase 21 L Influenza A (Rapid) Negative Influenza B (Rapid) Negative Influenza Types A,B Ag - - Rads (name of study) cxr Radiology: Prelim report reviewed, EMP read contemporaneously, See rad report ( Acute on chronic lung disease consisting of consolidation and a component of atelectasis involving the right upper and right middle lobes. Mild cardiomegaly.) PD MEDICAL DECISION MAKING - ED course Complexity details: reviewed old records, reviewed results, re-evaluated patient , considered differential, d/w patient, d/w PMD (Dr. Newsome and will follow up in the office. ) ED course: Patient is a 76-year-old female with a history of COPD that appears to have pneumonia on chest x-ray. Is currently on antibiotics. Given a dose of Rocephin here as well. She is very well-appearing, nontoxic. Afebrile. No hypoxia. Ambulating throughout the emergency department without difficulty and without becoming hypoxic. No respiratory distress. No leukocytosis. We will have her utilize her nebulizer every 4-6 hours at home. Continue her steroids and antibiotics at home. She has not been utilizing her nebulizer or inhalers at home. Patient counseled regarding signs and symptoms for which I believe and urgent re-evaluation would be necessary. Patient with good understanding of and agreement to plan and is comfortable going home at this time This document was made in part using voice recognition software. While efforts are made to proofread this document, sound alike and grammatical errors may occur. Departure - Departure Disposition: 01 Home, Self Care Condition: Good Instructions: ED Pneumonia Adult Follow-Up: Edyta Newsome MD [Primary Care Provider] - Within 3 Days Comments: Continue the antibiotics you were given by Dr. Newsome. Return if you worsen. Take all antibiotics until gone. You should be using your nebulizer at least every 4 hours. Continue the prednisone as well. Drink plenty of fluids. Discharge Date/Time: 09/06/17 16:48
[2017-09-06 13:56] LABS: BASOPHILS % (AUTO) 0.3 %; EOSINOPHILS % (AUTO) 0.1 %; HCT - HEMATOCRIT 39.5 % (37.0-47.0); HGB - HEMOGLOBIN 12.8 g/dL (12.0-16.0); LYMPHOCYTES # (AUTO) 0.5 10^3/uL (1.5-3.5); LYMPHOCYTES % (AUTO) 5.3 %; MEAN CORPUSCULAR HEMOGLOBIN 28.3 pg (27.0-31.0); MEAN CORPUSCULAR HGB CONC 32.5 g/dL (32.0-36.0); MEAN PLATELET VOLUME 7.5 fL (7.9-10.8); MONOCYTES # (AUTO) 0.1 10^3/uL (0.0-1.0); MONOCYTES % (AUTO) 0.8 %; NEUTROPHILS % (AUTO) 93.5 %; NUCLEATED RED BLOOD CELLS AUTO 0.2 /100WBC; RED BLOOD COUNT 4.54 10^6/uL (4.20-5.40); RED CELL DISTRIBUTION WIDTH 16.5 % (12.0-15.0); UNCORRECTED WHITE BLOOD COUNT 9.6 x10^3/uL; WHITE BLOOD COUNT 9.6 x10^3/uL (4.8-10.8)
[2017-09-06] MEDS ORDERED: IPRATROPIUM/ALBUTEROL 3 ML NEB INH ONE (14:09)
[2017-09-06 14:13] LABS: ALBUMIN/GLOBULIN RATIO 1.3 (1.0-2.2); CREATININE 1.1 mg/dL (0.4-1.0); PHOSPHORUS 3.3 mg/dL (2.5-4.6)
--- NOTE | 2017-09-06 14:18 | XRAY Preliminary Report ---
Exam: XR Chest 2 View PA/LAT IMPRESSION: 1. Acute on chronic lung disease consisting of consolidation and a component of atelectasis involving the right upper and right middle lobes. 2. Mild cardiomegaly. [facility] SITE ID: [id number]
--- NOTE | 2017-09-06 14:24 | XRAY Report ---
EXAM: CHEST RADIOGRAPHY EXAM DATE: 09/06/2017 01:44 PM. CLINICAL HISTORY: COPD. Cough, dyspnea. COMPARISON: 02/09/2017. Chest CT 02/04/2017 TECHNIQUE: 2 views. FINDINGS: Lungs/Pleura: Extensive volume loss and stable linear densities involving the apical segment left upp er lobe. Stable superior retraction of the enlarged left hilum. Otherwise, overexpanded lungs, emphysematous changes. New airspace densities in the posterior segment right upper lobe. Extensive underlying fibrosis at th is region. New faint interstitial infiltrates involving the right middle lobe. No effusion or pneumot horax. Mediastinum: Stable mild cardiomegaly. New mild left to right mediastinal shift. Stable elevation lef t hilum. Normal caliber right hilum. Other: None. IMPRESSION: 1. Acute on chronic lung disease consisting of consolidation and a component of atelectasis involving the right upper and right middle lobes. 2. Mild cardiomegaly. [facility] Referring Provider Line: [phone] SITE ID: [id number]
[2017-09-06] MEDS ORDERED: cefTRIAXone 1 GM VIAL IVP STA (14:30)
[2017-09-06] MEDS ORDERED: SODIUM CHLORIDE FLUSH 0.9% 10 ML SYRINGE IVP ONE (14:46)
[2017-09-06] MEDS ORDERED: cefTRIAXone 1 GM VIAL ONE (14:46)
[2017-09-06 14:52] LABS: BILIRUBIN,TOTAL 0.9 mg/dL (0.2-1.0); CALCIUM 8.7 mg/dL (8.5-10.3); MAGNESIUM 1.3 mg/dL (1.7-2.8); TOTAL PROTEIN 6.1 g/dL (6.7-8.2)
[2017-09-06] MEDS ORDERED: ALBUTEROL NEB 2.5 MG/3 ML INH STA (15:37)
[2017-09-06] MEDS ORDERED: ALBUTEROL NEB 2.5 MG/3 ML INH ONE (15:59)
[2017-09-06 16:54] VITALS: BP 124/66
== END 2017-09-06 16:48 | disposition home or self-care (01) ==
LOC: EDUNIT# → ED 12:50
DX: J18.9 Pneumonia, unspecified organism (principal); J44.9 Chronic obstructive pulmonary disease, unspecified; E78.00 Pure hypercholesterolemia, unspecified; K21.9 Gastro-esophageal reflux disease without esophagitis; M19.90 Unspecified osteoarthritis, unspecified site
CPT/HCPCS: 36415; 71020; 80053; 83690; 83735; 84100; 85025; 87275; 87276; 94640; 96374; 99284; J7613; J7620

== ENCOUNTER 2017-09-20 08:43 | Outpatient (CLI) | payer MEDICARE, OTHER ==
[~2017-09-20 08:43] MED LIST: IOPAMIDOL-300 100 ML VIAL ONE
--- NOTE | 2017-09-20 12:27 | CT Report ---
CT CHEST WITH CONTRAST: 09/20/2017 CLINICAL INDICATION: COPD, emphysema. TECHNIQUE: Axial CT images of the chest were obtained with 100 mL Isovue-300 intravenously. In accordance with CT protocol optimization, one or more of the following dose reduction techniques w ere utilized for this exam: automated exposure control, adjustment of mA and/or KV based on patient size, or use of iterative reconstructive technique. COMPARISON: Plain film 09/06/2017, chest CT 02/04/2017. FINDINGS: The heart and great vessels demonstrate atherosclerotic calcifications. No hilar or media stinal lymphadenopathy is seen. The lungs again demonstrate extensive emphysema and scarring. Previ ously seen infiltrate in the superior segment of the right lower lobe has resolved. No new consolida tion, effusion, or pneumothorax is present. Osseous structures demonstrate degenerative changes. Yaritza haley evaluation of upper abdominal structures demonstrates normal adrenal glands. IMPRESSION: EMPHYSEMA AND CHRONIC SCARRING. RESOLUTION OF PREVIOUSLY SEEN RIGHT LOWER LOBE INFILTRA TE FROM CT OF 02/04/2017. JOB #: [id number] EXT JOB #:[id number]
== END 2017-09-20 08:44 | disposition home or self-care (01) ==
LOC: DI 08:43
PROVIDERS: ATTEND Family Medicine
DX: J43.9 Emphysema, unspecified (principal)
CPT/HCPCS: 71260; Q9967

== ENCOUNTER 2017-09-23 08:00 | Outpatient (CLI) | payer MEDICARE, OTHER | END 2017-09-23 08:01 | disposition home or self-care (01) | LOC: LAB.WCP 08:00 | PROVIDERS: ATTEND Family Medicine | DX: R19.7 Diarrhea, unspecified (principal) | CPT/HCPCS: 87493 ==

== ENCOUNTER 2017-09-26 09:55 | Outpatient (CLI) | payer MEDICARE, OTHER ==
[2017-09-27 09:42] LABS: ALBUMIN/GLOBULIN RATIO 1.4 (1.0-2.2); BILIRUBIN,TOTAL 0.8 mg/dL (0.2-1.0); CALCIUM 8.5 mg/dL (8.5-10.3); CREATININE 1.8 mg/dL (0.4-1.0); POTASSIUM 3.8 mmol/L (3.5-5.0); TOTAL PROTEIN 5.7 g/dL (6.7-8.2)
== END 2017-09-26 09:56 | disposition home or self-care (01) ==
LOC: LAB.WCP 09:55
PROVIDERS: ATTEND Family Medicine
DX: R60.0 Localized edema (principal); I10 Essential (primary) hypertension
CPT/HCPCS: 36415; 80053

== ENCOUNTER 2017-12-09 08:00 | Outpatient (CLI) | payer MEDICARE, OTHER ==
[2017-12-09 19:21] LABS: BASOPHILS % (AUTO) 0.6 %; EOSINOPHILS % (AUTO) 0.5 %; HGB - HEMOGLOBIN 13.1 g/dL (12.0-16.0); LYMPHOCYTES # (AUTO) 0.9 10^3/uL (1.5-3.5); LYMPHOCYTES % (AUTO) 11.5 %; MEAN CORPUSCULAR HEMOGLOBIN 27.5 pg (27.0-31.0); MEAN CORPUSCULAR HGB CONC 32.1 g/dL (32.0-36.0); MEAN CORPUSCULAR VOLUME 85.6 fL (81.0-99.0); MEAN PLATELET VOLUME 7.8 fL (7.9-10.8); MONOCYTES # (AUTO) 0.6 10^3/uL (0.0-1.0); MONOCYTES % (AUTO) 7.7 %; NEUTROPHILS # (AUTO) 6.4 10^3/uL (1.5-6.6); NEUTROPHILS % (AUTO) 79.7 %; PLT - PLATELET COUNT 202 10^3/uL (130-450); RED BLOOD COUNT 4.77 10^6/uL (4.20-5.40); RED CELL DISTRIBUTION WIDTH 20.3 % (12.0-15.0)
[2017-12-09 19:23] LABS: ALBUMIN 4.2 g/dL (3.2-5.5); ALBUMIN/GLOBULIN RATIO 1.4 (1.0-2.2); BILIRUBIN,TOTAL 0.5 mg/dL (0.2-1.0); CALCIUM 9.2 mg/dL (8.5-10.3); CREATININE 1.7 mg/dL (0.4-1.0); TOTAL PROTEIN 7.1 g/dL (6.7-8.2)
[2017-12-09 20:13] LABS: PLATELET ESTIMATE, MANUAL NORMAL (130-450,000) (NORMAL); PLATELET MORPHOLOGY NORMAL APPEARANCE (NORMAL)
== END 2017-12-09 08:01 | disposition home or self-care (01) ==
LOC: LAB.WCP 08:00
PROVIDERS: ATTEND Family Medicine
DX: R07.9 Chest pain, unspecified (principal); I50.9 Heart failure, unspecified
CPT/HCPCS: 36415; 80053; 83880; 84484; 85025

== ENCOUNTER 2017-12-31 08:00 | Outpatient (CLI) | payer MEDICARE, OTHER ==
[2017-12-31 13:16] LABS: ALBUMIN 3.8 g/dL (3.2-5.5); ALBUMIN/GLOBULIN RATIO 1.3 (1.0-2.2); BILIRUBIN,TOTAL 0.4 mg/dL (0.2-1.0); CALCIUM 9.2 mg/dL (8.5-10.3); CREATININE 1.6 mg/dL (0.4-1.0); TOTAL PROTEIN 6.7 g/dL (6.7-8.2)
== END 2017-12-31 08:01 | disposition home or self-care (01) ==
LOC: LAB.WCP 08:00
PROVIDERS: ATTEND Family Medicine
DX: I10 Essential (primary) hypertension (principal); I50.9 Heart failure, unspecified
CPT/HCPCS: 36415; 80053; 83880

== ENCOUNTER 2018-01-30 02:24 | Outpatient (CLI) | payer MEDICARE, OTHER | END 2018-01-30 02:25 | disposition critical access hospital (66) | LOC: EMS 02:24 | PROVIDERS: ATTEND Surgery | DX: R06.00 Dyspnea, unspecified (principal); R07.89 Other chest pain | CPT/HCPCS: A0425; A0427 ==

== ENCOUNTER 2018-01-30 02:39 | Inpatient (IN) | payer MEDICARE, OTHER ==
[2018-01-30] MEDS ORDERED: ALBUTEROL NEB 2.5 MG/3 ML INH STA (02:46)
[2018-01-30] MEDS ORDERED: methylPREDNISolone SUCCINATE 125 MG/2 ML VIAL IVP STA (02:46)
[2018-01-30] MEDS ORDERED: ALBUTEROL NEB 2.5 MG/3 ML INH ONE (02:53)
[2018-01-30 03:02] LABS: BASOPHILS # (AUTO) 0.1 10^3/uL (0.0-0.1); BASOPHILS % (AUTO) 0.5 %; HGB - HEMOGLOBIN 11.7 g/dL (12.0-16.0); LYMPHOCYTES # (AUTO) 0.4 10^3/uL (1.5-3.5); LYMPHOCYTES % (AUTO) 3.6 %; MEAN CORPUSCULAR HEMOGLOBIN 28.7 pg (27.0-31.0); MEAN CORPUSCULAR HGB CONC 33.5 g/dL (32.0-36.0); MEAN CORPUSCULAR VOLUME 85.7 fL (81.0-99.0); MEAN PLATELET VOLUME 7.1 fL (7.9-10.8); MONOCYTES # (AUTO) 0.7 10^3/uL (0.0-1.0); MONOCYTES % (AUTO) 7.1 %; NEUTROPHILS # (AUTO) 8.9 10^3/uL (1.5-6.6); NEUTROPHILS % (AUTO) 88.8 %; PLT - PLATELET COUNT 175 10^3/uL (130-450); RED BLOOD COUNT 4.06 10^6/uL (4.20-5.40); RED CELL DISTRIBUTION WIDTH 16.8 % (12.0-15.0)
[2018-01-30 03:17] LABS: ALBUMIN 3.7 g/dL (3.2-5.5); ALBUMIN/GLOBULIN RATIO 1.3 (1.0-2.2); ALKALINE PHOSPHATASE 47 IU/L (42-121); ALT ALANINE AMINOTRANSFERASE 19 IU/L (10-60); AST ASPARTATE AMINOTRANSFERASE 24 IU/L (10-42); BILIRUBIN,TOTAL 0.4 mg/dL (0.2-1.0); BUN - BLOOD UREA NITROGEN 25 mg/dL (6-20); CALCIUM 8.6 mg/dL (8.5-10.3); CARBON DIOXIDE - CO2 25 mmol/L (21-32); CHLORIDE 98 mmol/L (101-111); CREATININE 1.1 mg/dL (0.4-1.0); GFR - MDRD 48 (>89); GLUCOSE 160 mg/dL (70-100); LIPASE < 10 U/L (22-51); SODIUM 136 mmol/L (135-145); TOTAL PROTEIN 6.6 g/dL (6.7-8.2)
--- NOTE | 2018-01-30 03:32 | ED Physician Documentation ---
PD HPI DYSPNEA - Stated complaint Stated Complaint: SOA - Chief complaint Chief Complaint: Resp - History obtained from History obtained from: Patient, EMS - History of Present Illness Timing - onset: How many days ago (5) Timing - details: Gradual onset, Still present Worsened by: Exertion, Coughing Associated symptoms: Cough, Wheezing. No: Fever, Hemoptysis Similar symptoms before: Work up / diagnostics, Treatment Recently seen: Not recently seen - Additional information Additional information: Patient is a 77 year old female with a history of copd, pulmonary htn, and pulmonary fibrosis who is presenting to the emergency department for cough and shortness of breath. Patient states that the symptoms have been going on for the last 5 days. patient states that last couple of days have been worse. Patient was evaluated by workers at the assisted living apartment she has but did not want to come in for evaluation. This evening patient got even worse so ems was called. When ems arrived patient was saturating in the high 70s on room air. (patient is on 4.5 L at home). Patient was treated with duonebs enroute which improved her symptoms. Review of Systems Constitutional: denies: Fever, Chills Eyes: reports: Reviewed and negative Ears: reports: Reviewed and negative Cardiac: denies: Chest pain / pressure, Palpitations Respiratory: reports: Dyspnea, Cough, Wheezing GI: denies: Nausea, Vomiting : reports: Reviewed and negative Skin: reports: Reviewed and negative Musculoskeletal: denies: Extremity swelling Neurologic: denies: Generalized weakness, Focal weakness, Numbness Immunocompromised: denies: Immunocompromised PD PAST MEDICAL HISTORY - Past Medical History Cardiovascular: Congestive heart failure, High cholesterol Respiratory: COPD, Pneumonia, Shortness of breath, Other Neuro: None Endocrine/Autoimmune: None GI: GERD : None HEENT: None Psych: None Musculoskeletal: Osteoarthritis, Other Derm: None - Past Surgical History Past Surgical History: Yes General: 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 NUMERAL: Hysterectomy HEENT: Cataracts - Present Medications Home Medications: Ambulatory Orders Medication Instructions Recorded Confirmed Cholecalciferol (Vitamin D3) 2,000 units PO DAILY 02/04/17 09/30/17 [Vitamin D3] Diclofenac Sodium/Misoprostol 1 tab PO DAILY 02/04/17 09/30/17 [Diclofenac-Misoprost 50-200 Tb] Ipratropium/Albuterol [Duoneb] 3 ml INH Q4H PRN 02/04/17 09/30/17 Lovastatin 40 mg PO QPM 02/04/17 09/30/17 Mometasone/Formoterol [Dulera 100 2 puffs INH BID 02/04/17 09/30/17 Mcg/5 Mcg Inhaler] Omeprazole 40 mg PO DAILY 02/04/17 09/30/17 Trazodone HCl 50 mg PO QPM 02/04/17 09/30/17 diphenhydrAMINE [Benadryl] 25 - 50 mg PO QPM PRN 02/04/17 09/30/17 Escitalopram [Lexapro] 10 mg PO DAILY 02/19/17 09/30/17 Metoprolol Succinate [Toprol Xl] 25 mg PO DAILY 02/27/17 09/30/17 oxyCODONE ER [OxyCONTIN] 10 mg PO TID 02/27/17 09/30/17 Albuterol Sulfate [Proair Hfa 2 puffs INH Q4H PRN 09/29/17 09/30/17 Inhaler] Diphenoxylate HCl/Atropine 1 tab PO TID PRN 09/29/17 09/30/17 [Diphenoxylat-Atrop 2.5-0.025/5] Loperamide [Imodium] 2 - 4 mg PO PRN PRN 09/29/17 09/30/17 Albuterol 3 ml INH Q2H PRN 09/30/17 09/30/17 Furosemide [Lasix] 80 mg PO DAILY #60 tablet 10/05/17 Potassium Chloride [K-Dur] 20 meq PO BIDWM #60 tablet 10/05/17 - Allergies Allergies/Adverse Reactions: Allergies Allergy/AdvReac Type Severity Reaction Status Date / Time Sulfa (Sulfonamide Allergy Mild Rash Verified 01/30/18 02:45 Antibiotics) - Social History Does the pt smoke?: No Smoking Status: Never smoker Does the pt drink ETOH?: No Does the pt have substance abuse?: No - Immunizations Immunizations are current?: Yes - POLST Patient has POLST: No PD ED PE NORMAL - Vitals Vital signs reviewed: Yes - General General: Alert and oriented X 3 - HEENT HEENT: Atraumatic, PERRL - Neck Neck: No JVD - Abdomen Abdomen: Soft, Non distended - Derm Derm: Normal color, No rash - Neuro Neuro: Alert and oriented X 3, No motor deficit - Psych Psych: Normal mood PD ED PE EXPANDED - General General: Alert, Other (pursed lip breathing) - HEENT HEENT: Dry mucous membranes - Cardiac Cardiac: Tachy - Respiratory Respiratory: Distress, Labored, Accessory mm use, Retractions, Wheezing, Rhonchi Results - Vitals Vitals: Vital Signs - 24 hr 01/30/18 01/30/18 01/30/18 02:43 02:50 03:21 Temperature 36.7 C Heart Rate 110 H 112 H 105 H Respiratory 24 30 H 28 H Rate Blood Pressure 118/61 119/59 L O2 Saturation 83 L 92 01/30/18 04:16 Temperature Heart Rate 95 Respiratory 30 H Rate Blood Pressure 122/59 L O2 Saturation 92 Oxygen O2 Source Nasal cannula Oxygen Flow Rate 4 - EKG (time done) 0243 Rate: Rate (enter#) (111) Rhythm: Sinus tachycardia [place]: Posterior hemiblock Intervals: RBBB Compare to prior EKG: Changed from prior EKG - Labs Labs: Laboratory Tests 01/30/18 01/30/18 01/30/18 02:55 02:55 02:55 WBC 10.0 RBC 4.06 L Hgb 11.7 L Hct 34.8 L MCV 85.7 MCH 28.7 MCHC 33.5 RDW 16.8 H Plt Count 175 MPV 7.1 L Neut # 8.9 H Lymph # 0.4 L Door # 0.7 Eos # 0.0 Baso # 0.1 Absolute Nucleated RBC 0.00 Nucleated RBC % 0.0 Sodium 136 Potassium 4.4 Chloride 98 L Carbon Dioxide 25 Anion Gap 13.0 BUN 25 H Creatinine 1.1 H Estimated GFR (MDRD) 48 L Glucose 160 H Calcium 8.6 Total Bilirubin 0.4 AST 24 ALT 19 Alkaline Phosphatase 47 Troponin I < 0.04 B-Natriuretic Peptide Total Protein 6.6 L Albumin 3.7 Globulin 2.9 Albumin/Globulin Ratio 1.3 Lipase < 10 L 01/30/18 02:55 WBC RBC Hgb Hct MCV MCH MCHC RDW Plt Count MPV Neut # Lymph # Door # Eos # Baso # Absolute Nucleated RBC Nucleated RBC % Sodium Potassium Chloride Carbon Dioxide Anion Gap BUN Creatinine Estimated GFR (MDRD) Glucose Calcium Total Bilirubin AST ALT Alkaline Phosphatase Troponin I B-Natriuretic Peptide 715 H Total Protein Albumin Globulin Albumin/Globulin Ratio Lipase - Rads (name of study) chest x-ray Radiology: Final report received (bilateral infiltrates) PD MEDICAL DECISION MAKING - ED course Complexity details: reviewed old records, reviewed results, re-evaluated patient , d/w patient, d/w family ED course: Patient was seen and examined at bedside. ekg was performed. Patient was treated with albuterol 5mg and solumedrol. IV access was gained and labs were drawn. Patient's oxygenation improved with the treatments. Chest x-ray showed bilateral infiltrates. Patient was treated with azithromycin and levaquin. Hospitalist was contacted and the case was discussed with her. patient was admitted for further evaluation and care. Departure - Departure Disposition: 66 [facility] DC/Xfer Clinical Impression: Moderate COPD (chronic obstructive pulmonary disease), Pneumonia Condition: Stable
--- NOTE | 2018-01-30 03:58 | XRAY Report ---
EXAM: CHEST RADIOGRAPHY EXAM DATE: 01/30/2018 03:20 AM. CLINICAL HISTORY: Shortness of breath and cough. COMPARISON: 09/29/2017. TECHNIQUE: 2 views. FINDINGS: Lungs/Pleura: Pulmonary emphysema. Pleural and parenchymal changes at the left apex appears stable. M ild patchy atelectasis or infiltrate elsewhere in both lungs which may be new since the prior exam. N o definite pleural effusion seen. No pneumothorax. Mediastinum: Heart and mediastinal contours are unremarkable. Other: None. IMPRESSION: 1. Emphysema with stable pleural and parenchymal changes at the left apex. 2. Mild patchy areas of atelectasis or infiltrate bilaterally. [facility] Referring Provider Line: [phone] SITE ID: [id number]
--- NOTE | 2018-01-30 03:58 | XRAY Preliminary Report ---
Exam: XR CHEST 2 VIEW X-RAY IMPRESSION: 1. Emphysema with stable pleural and parenchymal changes at the left apex. 2. Mild patchy areas of atelectasis or infiltrate bilaterally. [facility] SITE ID: [id number]
[2018-01-30] MEDS ORDERED: levoFLOXacin 750 MG/150 ML 750 MG/150 ML BAG IV STA (04:16)
[2018-01-30] MEDS ORDERED: AZITHROMYCIN INJ 500 MG in SODIUM CHLORIDE 0.9% 250 ML IV STA (04:16)
[2018-01-30] MEDS ORDERED: diphenhydrAMINE 25 MG CAPSULE PO PRN (04:54)
[2018-01-30] MEDS ORDERED: IPRATROPIUM/ALBUTEROL 3 ML NEB INH PRN (04:54)
[2018-01-30] MEDS ORDERED: AZITHROMYCIN INJ 250 MG in SODIUM CHLORIDE 0.9% 250 ML IV SCH (05:00)
--- NOTE | 2018-01-30 05:04 | HISTORY & PHYSICAL EXAMINATION ---
Chief Complaint - Chief Complaint Chief Complaint: respiratory distress History of Present Illness - Admitted From Admitted From:: home - History Obtained From History obtained from: Pt and Dr Colin - History of Present Illness HPI Comment/Other: Mrs. Stephanie Wilkins is a very pleasant 77-year-old lady with a long history of congestive heart failure and COPD who has been having increasing respiratory distress over the last several weeks. The patient normally wears 4-1/2 L of oxygen at home however unit was ineffective at managing the patient's shortness of breath so she came into the emergency department. She was found to have new bilateral pneumonia and will be admitted for treatment of the pneumonia, acute exacerbation of COPD, and acute exacerbation of CHF. 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: reports: Dilation and currettage, Hysterectomy HEENT: reports: Cataracts - Family & Social History Family History: Mother: (Mother from suicide, Father unknown causes), Father: , Other family: Cancer, CVA/TIA, Hyperlipidemia, Hypertension, [place] Living arrangement: At home Living Situation: Alone - Substance History Use: Uses substance without health or social issues: NONE Abuse: Recurrent use of substance despite neg consequences: NONE Dependence: Experiences withdrawal or developed tolerances: NONE - POLST Patient has POLST: Yes POLST Status: DNR Meds/Allgy - Home Medications Home Medications: Ambulatory Orders Medication Instructions Recorded Confirmed Cholecalciferol (Vitamin D3) 2,000 units PO DAILY 02/04/17 09/30/17 [Vitamin D3] Diclofenac Sodium/Misoprostol 1 tab PO DAILY 02/04/17 09/30/17 [Diclofenac-Misoprost 50-200 Tb] Ipratropium/Albuterol [Duoneb] 3 ml INH Q4H PRN 02/04/17 09/30/17 Lovastatin 40 mg PO QPM 02/04/17 09/30/17 Mometasone/Formoterol [Dulera 100 2 puffs INH BID 02/04/17 09/30/17 Mcg/5 Mcg Inhaler] Omeprazole 40 mg PO DAILY 02/04/17 09/30/17 Trazodone HCl 50 mg PO QPM 02/04/17 09/30/17 diphenhydrAMINE [Benadryl] 25 - 50 mg PO QPM PRN 02/04/17 09/30/17 Escitalopram [Lexapro] 10 mg PO DAILY 02/19/17 09/30/17 Metoprolol Succinate [Toprol Xl] 25 mg PO DAILY 02/27/17 09/30/17 oxyCODONE ER [OxyCONTIN] 10 mg PO TID 02/27/17 09/30/17 Albuterol Sulfate [Proair Hfa 2 puffs INH Q4H PRN 09/29/17 09/30/17 Inhaler] Diphenoxylate HCl/Atropine 1 tab PO TID PRN 09/29/17 09/30/17 [Diphenoxylat-Atrop 2.5-0.025/5] Loperamide [Imodium] 2 - 4 mg PO PRN PRN 09/29/17 09/30/17 Albuterol 3 ml INH Q2H PRN 09/30/17 09/30/17 Furosemide [Lasix] 80 mg PO DAILY #60 tablet 10/05/17 Potassium Chloride [K-Dur] 20 meq PO BIDWM #60 tablet 10/05/17 - Allergies Allergies/Adverse Reactions: Allergies Allergy/AdvReac Type Severity Reaction Status Date / Time Sulfa (Sulfonamide Allergy Mild Rash Verified 01/30/18 02:45 Antibiotics) Review of Systems - Constitutional Constitutional: reports: Fatigue, Weakness. denies: Fever, Chills, Malaise, Night sweats - Eyes Eyes: denies: Pain, Irritation, Blurred vision, Vision loss, Dipolpia - Ears, Nose & Throat Ears, Nose & Throat: denies: Ear pain, Hearing loss, Hearing aids, Tinnitus, Vertigo, Nasal pain, Nasal discharge - Respiratory Respiratory: reports: Cough, SOB at rest, SOB with exertion. denies: Sputum production, Wheezing, Snoring, Hemoptysis - Gastrointestinal Gastrointestinal: denies: Abdominal pain, Abdominal distention, Constipation, Diarrhea, Change in bowel habits, Rectal bleeding - Genitourinary Genitourinary: denies: Dysuria, Frequency, Urgency, Hematuria - Musculoskeletal Musculoskeletal: denies: Muscle pain, Back pain, Muscle aches, Stiffness - Integumentary Integumentary: denies: Rash, Pruritis, Lesions, Dryness - Neurological Neurological: denies: General weakness, Focal weakness, Headache, Dizziness - Psychiatric Psychiatric: denies: Depression, Anxiety, Suicidal, Hallucinations - Endocrine Endocrine: denies: Polyuria, Polydypsia, Polyphagia - Hematologic/Lymphatic Hematologic/Lymphatic: denies: Anemia, Bruising, Lymphadenopathy - All Other Systems All Other Systems: reports: Reviewed and negative Exam - Vital Signs Reviewed Vital Signs: Yes Vital Signs: Vital Signs x48h Temp Pulse Resp BP Pulse Ox 01/30/18 04:16 95 30 H 122/59 L 92 01/30/18 03:21 105 H 28 H 119/59 L 92 01/30/18 02:50 112 H 30 H 01/30/18 02:43 36.7 C 110 H 24 118/61 83 L - Physical Exam General Appearance: positive: Alert, Mild distress Eyes Bilateral: positive: Normal inspection, PERRL, EOMI, No lid inflammation, Conjunctivae nml, No scleral icterus ENT: positive: ENT inspection nml, Pharynx nml, No signs of dehydration Neck: positive: Nml inspection, Thyroid nml, No JVD, Trachea midline. negative : Thyromegaly Respiratory: positive: Chest non-tender, Wheezes. negative: Rales, Rhonchi Cardiovascular: positive: Regular rate & rhythm, No murmur, No gallop Peripheral Pulses: positive: 1+ Abdomen: positive: Non-tender, No organomegaly, Nml bowel sounds, No distention. negative: Guarding, Rebound Back: positive: Nml inspection. negative: CVA tenderness (R), CVA tenderness (L ) Skin: positive: Color nml, No rash, Warm, Dry. negative: Cyanosis Extremities: positive: Non-tender, Full ROM, Nml appearance, No pedal edema Neurologic/Psychiatric: positive: Oriented x3, CN's nml (2-12), Motor nml, Sensation nml, Mood/affect nml Conclusion/Plan - Problem List (1) Pneumonia Conclusion/Plan: Etiology is unknown. This is likely the cause of the acute exacerbation of the patient's COPD. At this time she is resting comfortably on 4 L of oxygen which is her normal home dosing with a saturation of 94%. We will treat her with IV antibiotics, IV steroids, bronchodilators, and supplemental oxygen. The patient 's current the BNP is 715 so we will be very careful with her fluid status. The patient is also scheduled for an outpatient liver ultrasound today which her PCP and triage rn are obtaining in order to get her onto a special investigational drug for her CHF. We will try to get the imaging done while she is inpatient. (2) Moderate COPD (chronic obstructive pulmonary disease) Conclusion/Plan: Patient has bilateral pneumonia which is setting off her COPD. We will continue her on [id number] bronchodilators and steroids and treat the underlying pneumonia. (3) CHF (congestive heart failure) Conclusion/Plan: The patient is oxygen dependentand although this may be attributed to her COPD exclusively I believe there is a strong CHF component as well. We will try to obtain the liver ultrasound which are PCP and triage rn had ordered while she is inpatient, and we will very closely monitor the patient's fluid status. Her BNP was 715 this morning. (4) Chronic pain Conclusion/Plan: We will continue the patient on her home medication regimen. I will consider starting her on low-dose methadone. - Lab Results Fish Bones: 01/30/18 02:55 01/30/18 02:55 - Diagnostic Imaging Results Diagnostic Imaging Results: positive: Final report reviewed Diagnostic Imaging Results Comments: EXAM: CHEST RADIOGRAPHY EXAM DATE: 01/30/2018 03:20 AM. CLINICAL HISTORY: Shortness of breath and cough. COMPARISON: 09/29/2017. TECHNIQUE: 2 views. FINDINGS: Lungs/Pleura: Pulmonary emphysema. Pleural and parenchymal changes at the left apex appears stable. Mild patchy atelectasis or infiltrate elsewhere in both lungs which may be new since the prior exam. No definite pleural effusion seen. No pneumothorax. Mediastinum: Heart and mediastinal contours are unremarkable. Other: None. IMPRESSION: 1. Emphysema with stable pleural and parenchymal changes at the left apex. 2. Mild patchy areas of atelectasis or infiltrate bilaterally. Core Measures - Anticipated LOS I expect patient to be DC'd or transferred within 96 hours.: Yes - DVT/VTE - Prophylaxis VTE/DVT Device ordered at admit?: Yes
[2018-01-30] MEDS: cefTRIAXone 2 GM in SODIUM CHLORIDE 0.9% MINIBAG 100 ML IV SCH (06:15)
[2018-01-30] MEDS: SODIUM CHLORIDE FLUSH 0.9% 10 ML SYRINGE IVP PRN (06:15)
[2018-01-30] MEDS: PANTOPRAZOLE 40 MG TABLET PO SCH (06:16)
[2018-01-30] MEDS: oxyCODONE ER 10 MG TABLET PO SCH ×3 (06:20→21:00)
[2018-01-30] MEDS ORDERED: BUDESONIDE 0.5 MG/2 ML NEB INH SCH (07:30)
[2018-01-30] MEDS: BUDESONIDE 0.5 MG/2 ML NEB INH SCH ×3 (07:57→19:25)
[2018-01-30] MEDS: FORMOTEROL FUMARATE NEB 20 MCG/2 ML INH SCH ×2 (07:58→19:25)
[2018-01-30] MEDS: IPRATROPIUM/ALBUTEROL 3 ML NEB INH SCH ×3 (07:58→19:25)
--- NOTE | 2018-01-30 08:32 | PROVIDER PROGRESS NOTE ---
Subjective - Prog Note Date Prog Note Date: 01/30/18 Prog Note Time: 08:32 - Subjective Pt reports feeling: Improved Subjective: Gwen is mildly distress and has a very poor cough effort. She denies nausea or vomiting. She admits to ongoing mucus production and continued shortness of breath. Current Medications - Current Medications Current Medications: Active Medications Albuterol/Ipratropium (Duoneb) 3 ml INH Q4H PRN PRN Reason: SOB Albuterol/Ipratropium (Duoneb) 3 ml INH Q6HR [facility] Last Admin: 01/31/18 19:00 Dose: 3 ml Atorvastatin Calcium (Lipitor) 10 mg PO HS [facility] Last Admin: 01/31/18 21:11 Dose: 10 mg Budesonide (Pulmicort) 0.5 mg INH RTBID [facility] Last Admin: 01/31/18 19:00 Dose: 0.5 mg Diphenhydramine HCl (Benadryl) 25 mg PO QPM PRN PRN Reason: ITCHING Diphenoxylate HCl/Atropine (Lomotil) 1 tab PO TID PRN PRN Reason: Diarrhea Escitalopram Oxalate (Lexapro) 10 mg PO DAILY [facility] Last Admin: 01/31/18 10:10 Dose: 10 mg Formoterol Fumarate (Perforomist) 20 mcg INH RTBID [facility] Last Admin: 01/31/18 19:00 Dose: 20 mcg Furosemide (Lasix) 80 mg PO DAILY [facility] Last Admin: 01/31/18 10:10 Dose: 80 mg Guaifenesin (Mucinex) 600 mg PO BID [facility] Last Admin: 01/31/18 21:11 Dose: 600 mg Guaifenesin/Codeine Phosphate (Robitussin Ac) 5 ml PO Q6HR PRN PRN Reason: Cough Ceftriaxone Sodium 2 gm/ (Sodium Chloride) 100 mls @ 200 mls/hr IV Q24H [facility] Last Infusion: 01/31/18 07:09 Dose: Infused Azithromycin 250 mg/ Sodium (Chloride) 250 mls @ 250 mls/hr IV Q24H [facility] Last Infusion: 01/31/18 06:06 Dose: Infused Loperamide HCl (Imodium) 4 mg PO Q2H PRN PRN Reason: Diarrhea Magnesium Oxide (Mag Ox) 400 mg PO BIDWM [facility] Last Admin: 03/02/18 16:52 Dose: 400 mg Methylprednisolone (Solu-Medrol (40mg Vial)) 40 mg IVP TID [facility] Last Admin: 01/31/18 21:11 Dose: 40 mg Oxycodone HCl (Oxycontin) 10 mg PO TID [facility] Last Admin: 01/31/18 21:11 Dose: 10 mg Pantoprazole Sodium (Protonix) 40 mg PO QDAC [facility] Last Admin: 01/31/18 06:17 Dose: 40 mg [Diclofenac- Misoprost 50-200 Tb] 1 Tab) 1 each PO DAILY [facility] Last Admin: 01/31/18 10:11 Dose: Not Given Polyethylene Glycol (Miralax) 17 gm PO DAILY [facility] Last Admin: 01/31/18 10:11 Dose: Not Given Potassium Chloride (K-Dur) 20 meq PO BIDWM [facility] Last Admin: 01/31/18 16:52 Dose: 20 meq Sodium Chloride (Normal Saline Flush 0.9%) 10 ml IVP PRN PRN PRN Reason: NEEDED PER PROVIDER ORDERS Last Admin: 01/31/18 13:31 Dose: 10 ml Sodium Chloride (Normal Saline Flush 0.9%) 10 ml IVP 0100,0900,1700 [facility] Last Admin: 01/31/18 21:11 Dose: 10 ml Throat Lozenges (Cepacol) 1 lozenge MM Q2HR PRN PRN Reason: Throat pain Last Admin: 01/31/18 00:07 Dose: 1 lozenge Trazodone HCl (Desyrel) 50 mg PO QPM [facility] Last Admin: 01/31/18 21:11 Dose: 50 mg Cholecalciferol (Vitamin D3) [Vitamin D3] 2,000 units PO DAILY 02/04/17 Diclofenac Sodium/Misoprostol [Diclofenac-Misoprost 50-200 Tb] 1 tab PO DAILY Ipratropium/Albuterol [Duoneb] 3 ml INH Q4H PRN 02/04/17 Lovastatin 40 mg PO QPM 02/04/17 Mometasone/Formoterol [Dulera 100 Mcg/5 Mcg Inhaler] 2 puffs INH BID 02/04/17 Trazodone HCl 50 mg PO QPM 02/04/17 diphenhydrAMINE [Benadryl] 25 - 50 mg PO QPM PRN 02/04/17 Escitalopram [Lexapro] 10 mg PO DAILY 02/19/17 oxyCODONE ER [OxyCONTIN] 10 mg PO TID 02/27/17 Albuterol Sulfate [Proair Hfa Inhaler] 2 puffs INH Q4H PRN 09/29/17 Diphenoxylate HCl/Atropine [Diphenoxylat-Atrop 2.5-0.025/5] 1 tab PO Q3H PRN Loperamide [Imodium] 2 - 4 mg PO PRN PRN 09/29/17 Acetaminophen [Tylenol] 650 mg PO Q8H PRN 01/30/18 Furosemide [Furosemide] 40 mg PO DAILY 01/30/[address]pr[address] [place] 2 sprays OMID Q8H PRN 01/30/18 Lidocaine Patch 5% [Lidoderm Patch] 1 each TOP DAILY PRN 01/30/18 Multivitamin [Theragran] 1 each PO DAILY 01/30/18 Omeprazole [Omeprazole] 40 mg PO QDAC 01/30/18 Saccharomyces Boulardii [Florastor] 250 mg PO DAILYWM 01/30/18 Triamcinolone 0.1% Cream [Kenalog 0.1% Cream] 1 applic TOP BID 01/30/18 Objective - Vital Signs/Intake & Output Reviewed Vital Signs: Yes Vital Signs: Vital Signs x48h Temp Pulse Pulse Resp BP BP Pulse Ox 01/30/18 08:00 84 22 01/30/18 07:53 36.9 C 90 19 132/99 H 96 01/30/18 05:30 37.1 C 93 21 111/45 L 91 L 01/30/18 05:07 94 25 H 107/60 95 Intake & Output: Intake & Output 01/27/18 01/28/18 01/29/18 01/30/18 23:59 23:59 23:59 23:59 Intake Total 350 Balance 350 - Objective General Appearance: positive: Alert, Moderate distress, Anxious Eyes Bilateral: positive: Normal inspection Eyes: OU Conjunctivae pale ENT: positive: ENT inspection nml, Pharynx nml, Dry mucous membranes Neck: positive: Nml inspection, Thyroid nml, Stiff neck Respiratory: positive: Chest non-tender, Wheezes, Rhonchi Cardiovascular: positive: No gallop, Irregularly irregular, Systolic murmur, Decreased pulse(s) Peripheral Pulses: 2+ Radial (R), 2+ Radial (L) Abdomen: positive: Non-tender, No organomegaly, Nml bowel sounds, No distention Back: positive: Nml inspection Skin: positive: No rash, Warm, Dry, Pallor Extremities: positive: Non-tender, Full ROM, Nml appearance, No pedal edema Neurologic/Psychiatric: positive: Oriented x3, CN's nml (2-12), Motor nml, Sensation nml, Slurred/abnml speech, Depressed mood/affect, Other (difficult to speak in full sentances due to breathing efforts.) Reflexes: Bicep (R): 1+, Bicep (L): 1+ - Lab Results Fish Bones: 01/30/18 02:55 01/30/18 02:55 - Diagnostic Imaging Diagnostic Imaging Results: positive: Final report reviewed Assessment/Plan - Problem List (1) Pneumonia Impression: Patient was noted to have bilateral pneumonia on imaging completed on admission. She has a chronic cough that has become worse, with increased oxygen needs. Plan: Treat with low dose steroids, IV antibiotics and flutter valve per RT. Qualifiers: Laterality: bilateral (2) Moderate COPD (chronic obstructive pulmonary disease) Impression: Patient sees a team sports sales associate in [place] for her chronic lung disease. She was scheduled to have a liver ultrasound as an outpatient, however, this is now on hold due to this hospital stay. Per patient, she is required to have the ultrasound to qualify for a new "lung medication". She wears chronic oxygen at home. Plan: Continue nebulizers per RT, flutter valve and steroids. We will ensure the liver US is re-scheduled before the patient is discharged, unless this is on the weekend. (3) Hypoxia Impression: Patient became more hypoxic and has been told by a doctor in the past that she may be a CO2 retainer. Her oxygen needs at home have increased, although her home dose has been 2L nasal cannula. Plan: Continue to monitor and provide supplemental oxygen. (4) CHF (congestive heart failure) Impression: Patient had an increased right sided heart pressure of 157mmHg at rest on her most recent Echo. She has very mild BLE edema, but this does seem dependent as it becomes less after she is in bed. Plan: Continue lasix and add Spironolactone. Qualifiers: Congestive heart failure type: combined Congestive heart failure chronicity : acute on chronic Qualified Code(s): I50.43 - Acute on chronic combined systolic (congestive) and diastolic (congestive) heart failure (5) Chronic pain Impression: Patient has osteoarthritis and suffers with back and neck pain. She takes scheduled oxycodone TID at home, and this is prescribed here as well. Plan: Offer pain medications as needed and consider Methadone as a custodial solution.
[2018-01-30] MEDS: POLYETHYLENE GLYCOL 3350 17 GM PACKET PO SCH (08:55)
[2018-01-30] MEDS: SODIUM CHLORIDE FLUSH 0.9% 10 ML SYRINGE IVP SCH ×3 (08:57→23:42)
[2018-01-30] MEDS ORDERED: METOPROLOL SUCCINATE 25 MG TABLET PO SCH (09:00)
[2018-01-30] MEDS ORDERED: NON FORMULARY MED (Omeprazole [Omeprazole] 40 MG) PO SCH (09:00)
[2018-01-30] MEDS: DICLOFENAC PO SCH (09:08)
[2018-01-30] MEDS: MISOPROSTOL PO SCH (09:08)
[2018-01-30] MEDS: FUROSEMIDE 40 MG TABLET PO SCH (09:09)
[2018-01-30] MEDS: ESCITALOPRAM 10 MG TABLET PO SCH (09:09)
[2018-01-30] MEDS: POTASSIUM CHLORIDE 20 MEQ TABLET PO SCH ×2 (13:20→16:53)
[2018-01-30] MEDS ORDERED: NON FORMULARY MED (Lovastatin [Lovastatin] 40 MG) PO SCH (21:00)
[2018-01-30] MEDS: ATORVASTATIN 10 MG TABLET PO SCH (21:00)
[2018-01-30] MEDS: MAGNESIUM OXIDE 400 MG TABLET PO SCH (21:00)
[2018-01-30] MEDS: traZODone 50 MG TABLET PO SCH (21:00)
[2018-01-31] MEDS: BENZOCAINE/MENTHOL LOZENGE MM PRN (00:07)
[2018-01-31] MEDS: IPRATROPIUM/ALBUTEROL 3 ML NEB INH SCH ×4 (01:16→19:00)
[2018-01-31] MEDS: AZITHROMYCIN INJ 250 MG in SODIUM CHLORIDE 0.9% 250 ML IV SCH (05:03)
[2018-01-31] MEDS: SODIUM CHLORIDE FLUSH 0.9% 10 ML SYRINGE IVP PRN ×2 (05:05→13:31)
[2018-01-31] MEDS: cefTRIAXone 2 GM in SODIUM CHLORIDE 0.9% MINIBAG 100 ML IV SCH (06:14)
[2018-01-31] MEDS: oxyCODONE ER 10 MG TABLET PO SCH ×3 (06:17→21:11)
[2018-01-31] MEDS: PANTOPRAZOLE 40 MG TABLET PO SCH (06:17)
[2018-01-31] MEDS: FORMOTEROL FUMARATE NEB 20 MCG/2 ML INH SCH ×2 (07:23→19:00)
[2018-01-31] MEDS: BUDESONIDE 0.5 MG/2 ML NEB INH SCH ×2 (07:23→19:00)
[2018-01-31] MEDS: FUROSEMIDE 40 MG TABLET PO SCH (10:10)
[2018-01-31] MEDS: ESCITALOPRAM 10 MG TABLET PO SCH (10:10)
[2018-01-31] MEDS: MAGNESIUM OXIDE 400 MG TABLET PO SCH ×2 (10:10→16:52)
[2018-01-31] MEDS: POTASSIUM CHLORIDE 20 MEQ TABLET PO SCH ×2 (10:10→16:52)
[2018-01-31] MEDS: POLYETHYLENE GLYCOL 3350 17 GM PACKET PO SCH (10:11)
[2018-01-31] MEDS: MISOPROSTOL PO SCH (10:11)
[2018-01-31] MEDS: DICLOFENAC PO SCH (10:11)
[2018-01-31] MEDS: methylPREDNISolone SUCCINATE 40 MG/ML VIAL IVP SCH ×2 (13:31→21:11)
[2018-01-31] MEDS: SODIUM CHLORIDE FLUSH 0.9% 10 ML SYRINGE IVP SCH ×2 (13:31→21:11)
[2018-01-31] MEDS ORDERED: guaiFENesin/CODEINE 5 ML UDC PO PRN (13:55)
[2018-01-31] MEDS: guaiFENesin 600 MG TABLET PO SCH ×2 (14:38→21:11)
[2018-01-31] MEDS: ATORVASTATIN 10 MG TABLET PO SCH (21:11)
[2018-01-31] MEDS: traZODone 50 MG TABLET PO SCH (21:11)
--- NOTE | 2018-01-31 21:31 | PROVIDER PROGRESS NOTE ---
Subjective - Prog Note Date Prog Note Date: 01/31/18 Prog Note Time: 08:00 - Subjective Pt reports feeling: No change Subjective: Gwen is not vastly improved, so chest physiotherpy was ordered to help with sputum. She denies chest pain, N/V or dizziness. She notes that the color of her sputum has changed to a rust color and she is not improving. Current Medications - Current Medications Current Medications: My Active Orders 01/30/18 23:48 Benzocaine/Menthol [Cepacol] 1 lozenge MM Q2HR PRN 01/31/18 11:53 CPT - Chest Physical Therapy [RC] .tid 01/31/18 12:00 methylPREDNISolone SUCCINATE [SOLU-Medrol (40MG VIAL)] 40 mg IVP TID 01/31/18 13:55 guaiFENesin/CODEINE [Robitussin AC] 5 ml PO Q6HR PRN 01/31/18 14:00 guaiFENesin [Mucinex] 600 mg PO BID 02/01/18 05:00 BNP - B-NATRIURETIC PEPTIDE [IAI] DAILYLAB CBC - COMP BLD CT W/AUTO DIFF [HEME] DAILYLAB CMP [COMPREHENSIVE METABOLIC PANEL] [CHEM] DAILYLAB MAGNESIUM [CHEM] DAILYLAB 02/01/18 08:00 Spironolactone [Aldactone] 25 mg PO DAILY 02/01/18 09:00 Furosemide [Lasix] 40 mg PO DAILY 02/02/18 05:00 BNP - B-NATRIURETIC PEPTIDE [IAI] DAILYLAB CBC - COMP BLD CT W/AUTO DIFF [HEME] DAILYLAB CMP [COMPREHENSIVE METABOLIC PANEL] [CHEM] DAILYLAB 02/03/18 05:00 BNP - B-NATRIURETIC PEPTIDE [IAI] DAILYLAB CBC - COMP BLD CT W/AUTO DIFF [HEME] DAILYLAB CMP [COMPREHENSIVE METABOLIC PANEL] [CHEM] DAILYLAB Objective - Vital Signs/Intake & Output Reviewed Vital Signs: Yes Vital Signs: Vital Signs x48h Temp Pulse Resp BP Pulse Ox 01/31/18 16:00 36.7 C 54 L 18 130/60 94 Intake & Output: Intake & Output 01/28/18 01/29/18 01/30/18 01/31/18 23:59 23:59 23:59 23:59 Intake Total 1430 1360 Balance 1430 1360 - Objective General Appearance: positive: Alert, Moderate distress, Anxious Eyes Bilateral: positive: Normal inspection Eyes: OU Conjunctivae pale ENT: positive: ENT inspection nml, Pharynx nml, Dry mucous membranes Neck: positive: Thyroid nml, Trachea midline Respiratory: positive: Chest non-tender, Wheezes, Rhonchi Cardiovascular: positive: Irregularly irregular, Systolic murmur, Decreased pulse(s) Peripheral Pulses: 1+ Radial (R), 1+ Radial (L) Abdomen: positive: Non-tender, Nml bowel sounds, Other (rounded, soft) Back: positive: Nml inspection Skin: positive: No rash, Warm, Dry, Pallor Extremities: positive: Non-tender, Full ROM, Pedal edema (trace) Neurologic/Psychiatric: positive: Oriented x3, CN's nml (2-12), Motor nml, Sensation nml, Depressed mood/affect Reflexes: Bicep (R): 1+, Bicep (L): 1+ - Lab Results Fish Bones: 01/30/18 02:55 01/30/18 02:55 - Diagnostic Imaging Diagnostic Imaging Results: positive: Final report reviewed Assessment/Plan - Problem List (1) Pneumonia Impression: Patient was noted to have bilateral pneumonia on imaging completed on admission. She has a chronic cough that has become worse, with increased oxygen needs. She has been afebrile with no WBC elevation. Plan: Treat with low dose steroids and this has been changed to IV today, IV antibiotics and flutter valve per RT. Qualifiers: Pneumonia type: due to Mycoplasma pneumoniae Laterality: bilateral (2) Moderate COPD (chronic obstructive pulmonary disease) Impression: Patient sees a help desk supervisor in [place] for her chronic lung disease. She was scheduled to have a liver ultrasound as an outpatient, however, this is now on hold due to this hospital stay. Per patient, she is required to have the ultrasound to qualify for a new "lung medication". She wears chronic oxygen at home. Plan: Continue nebulizers per RT, flutter valve and steroids. We will ensure the liver US is re-scheduled before the patient is discharged, unless this is on the weekend. (3) CHF (congestive heart failure) Impression: Patient had an increased right sided heart pressure of 157mmHg at rest on her most recent Echo. She has very mild BLE edema, but this does seem dependent as it becomes less after she is in bed. Plan: Continue lasix and add Spironolactone. Qualifiers: Congestive heart failure type: combined Congestive heart failure chronicity : acute on chronic Qualified Code(s): I50.43 - Acute on chronic combined systolic (congestive) and diastolic (congestive) heart failure (4) Chronic pain Impression: Patient has osteoarthritis and suffers with back and neck pain. She takes scheduled oxycodone TID at home, and this is prescribed here as well. Plan: Offer pain medications as needed and consider Methadone as a residential solution. Qualifiers: Chronic pain type: chronic pain syndrome Qualified Code(s): G89.4 - Chronic pain syndrome
[2018-01-31] MEDS ORDERED: SPIRONOLACTONE 25 MG TABLET PO SCH (23:00)
[2018-02-01] MEDS: IPRATROPIUM/ALBUTEROL 3 ML NEB INH SCH ×4 (01:00→19:30)
[2018-02-01] MEDS: SODIUM CHLORIDE FLUSH 0.9% 10 ML SYRINGE IVP SCH ×5 (01:06→21:19)
[2018-02-01 05:31] LABS: LYMPHOCYTES # (AUTO) 0.4 10^3/uL (1.5-3.5); MEAN CORPUSCULAR HEMOGLOBIN 27.8 pg (27.0-31.0); MEAN CORPUSCULAR HGB CONC 32.3 g/dL (32.0-36.0); MEAN CORPUSCULAR VOLUME 85.9 fL (81.0-99.0); MEAN PLATELET VOLUME 7.3 fL (7.9-10.8); MONOCYTES # (AUTO) 0.1 10^3/uL (0.0-1.0); MONOCYTES % (AUTO) 3.1 %; NEUTROPHILS # (AUTO) 3.9 10^3/uL (1.5-6.6); NEUTROPHILS % (AUTO) 88.9 %; PLT - PLATELET COUNT 192 10^3/uL (130-450); RED BLOOD COUNT 4.32 10^6/uL (4.20-5.40); RED CELL DISTRIBUTION WIDTH 16.3 % (12.0-15.0); WHITE BLOOD COUNT 4.4 x10^3/uL (4.8-10.8)
[2018-02-01 05:37] LABS: ALBUMIN 3.7 g/dL (3.2-5.5); ALBUMIN/GLOBULIN RATIO 1.1 (1.0-2.2); BILIRUBIN,TOTAL 0.5 mg/dL (0.2-1.0); CALCIUM 9.2 mg/dL (8.5-10.3); CREATININE 1.1 mg/dL (0.4-1.0)
[2018-02-01] MEDS: SODIUM CHLORIDE FLUSH 0.9% 10 ML SYRINGE IVP PRN ×4 (05:40→21:19)
[2018-02-01] MEDS: methylPREDNISolone SUCCINATE 40 MG/ML VIAL IVP SCH ×3 (05:40→21:19)
[2018-02-01] MEDS: oxyCODONE ER 10 MG TABLET PO SCH ×3 (05:42→21:19)
[2018-02-01] MEDS: PANTOPRAZOLE 40 MG TABLET PO SCH ×2 (05:42→16:42)
--- NOTE | 2018-02-01 08:45 | PROVIDER PROGRESS NOTE ---
Subjective - Prog Note Date Prog Note Date: 02/01/18 Prog Note Time: 08:45 - Subjective Pt reports feeling: Improved Subjective: Gwen complains of tightness in her chest that has been ongoing since admission. She also has poor airway clearance. She denies fever, chills, N/V or other associated symptoms. She complains about being on a cardiac diet. Current Medications - Current Medications Current Medications: Active Medications Acetaminophen (Tylenol) 650 mg PO Q8H PRN PRN Reason: PRN PAIN &/OR FEVER Albuterol/Ipratropium (Duoneb) 3 ml INH Q4H PRN PRN Reason: SOB Albuterol/Ipratropium (Duoneb) 3 ml INH Q6HR [facility] Last Admin: 02/01/18 18:30 Dose: Not Given Atorvastatin Calcium (Lipitor) 10 mg PO HS [facility] Last Admin: 01/31/18 21:11 Dose: 10 mg Budesonide (Pulmicort) 0.5 mg INH RTBID [facility] Last Admin: 02/01/18 18:23 Dose: Not Given Diphenhydramine HCl (Benadryl) 25 mg PO QPM PRN PRN Reason: ITCHING Diphenoxylate HCl/Atropine (Lomotil) 1 tab PO TID PRN PRN Reason: Diarrhea Escitalopram Oxalate (Lexapro) 10 mg PO DAILY [facility] Last Admin: 02/01/18 10:00 Dose: 10 mg Formoterol Fumarate (Perforomist) 20 mcg INH RTBID [facility] Last Admin: 02/01/18 18:23 Dose: Not Given Furosemide (Lasix) 40 mg PO DAILY [facility] Last Admin: 02/01/18 10:00 Dose: 40 mg Guaifenesin (Mucinex) 600 mg PO BID [facility] Last Admin: 02/01/18 10:00 Dose: 600 mg Guaifenesin/Codeine Phosphate (Robitussin Ac) 5 ml PO Q6HR PRN PRN Reason: Cough Ceftriaxone Sodium 2 gm/ (Sodium Chloride) 100 mls @ 200 mls/hr IV Q24H [facility] Last Infusion: 02/01/18 10:42 Dose: Infused Azithromycin 250 mg/ Sodium (Chloride) 250 mls @ 250 mls/hr IV Q24H [facility] Last Infusion: 02/01/18 12:00 Dose: Infused Lidocaine (Lidoderm Patch) 1 patch TOP DAILY PRN PRN Reason: PAIN Loperamide HCl (Imodium) 4 mg PO Q2H PRN PRN Reason: Diarrhea Magnesium Oxide (Mag Ox) 400 mg PO BIDWM [facility] Last Admin: 02/01/18 16:41 Dose: 400 mg Methylprednisolone (Solu-Medrol (40mg Vial)) 40 mg IVP TID [facility] Last Admin: 02/01/18 14:47 Dose: 40 mg Multivitamins (Theragran) 1 tab PO DAILY [facility] Oxycodone HCl (Oxycontin) 10 mg PO TID [facility] Last Admin: 02/01/18 14:47 Dose: 10 mg Pantoprazole Sodium (Protonix) 40 mg PO QDAC [facility] Last Admin: 02/01/18 05:42 Dose: 40 mg Pantoprazole Sodium (Protonix) 40 mg PO QDAC [facility] Last Admin: 02/01/18 16:42 Dose: 40 mg [Diclofenac- Misoprost 50-200 Tb] 1 Tab) 1 each PO DAILY [facility] Last Admin: 02/01/18 10:01 Dose: Not Given Polyethylene Glycol (Miralax) 17 gm PO DAILY [facility] Last Admin: 02/01/18 09:59 Dose: 17 gm Saccharomyces Boulardii (Florastor) 250 mg PO DAILYWM [facility] Last Admin: 02/01/18 16:41 Dose: 250 mg Sodium Chloride (Normal Saline Flush 0.9%) 10 ml IVP PRN PRN PRN Reason: NEEDED PER PROVIDER ORDERS Last Admin: 02/01/18 10:00 Dose: 10 ml Sodium Chloride (Normal Saline Flush 0.9%) 10 ml IVP 0100,0900,1700 [facility] Last Admin: 02/01/18 16:45 Dose: 10 ml Sodium Chloride ([place]) 2 sprays OMID Q4HR PRN PRN Reason: Nasal Congestion Spironolactone (Aldactone) 25 mg PO DAILY [facility] Last Admin: 02/01/18 10:01 Dose: Not Given Throat Lozenges (Cepacol) 1 lozenge MM Q2HR PRN PRN Reason: Throat pain Last Admin: 01/31/18 00:07 Dose: 1 lozenge Trazodone HCl (Desyrel) 50 mg PO QPM [facility] Last Admin: 01/31/18 21:11 Dose: 50 mg Vitamin A/Vitamin D (Vitamin A & D Ointment) 1 applic TOP PRN PRN PRN Reason: Skin Care Cholecalciferol (Vitamin D3) [Vitamin D3] 2,000 units PO DAILY 02/04/17 Diclofenac Sodium/Misoprostol [Diclofenac-Misoprost 50-200 Tb] 1 tab PO DAILY Ipratropium/Albuterol [Duoneb] 3 ml INH Q4H PRN 02/04/17 Lovastatin 40 mg PO QPM 02/04/17 Mometasone/Formoterol [Dulera 100 Mcg/5 Mcg Inhaler] 2 puffs INH BID 02/04/17 Trazodone HCl 50 mg PO QPM 02/04/17 diphenhydrAMINE [Benadryl] 25 - 50 mg PO QPM PRN 02/04/17 Escitalopram [Lexapro] 10 mg PO DAILY 02/19/17 oxyCODONE ER [OxyCONTIN] 10 mg PO TID 02/27/17 Albuterol Sulfate [Proair Hfa Inhaler] 2 puffs INH Q4H PRN 09/29/17 Diphenoxylate HCl/Atropine [Diphenoxylat-Atrop 2.5-0.025/5] 1 tab PO Q3H PRN Loperamide [Imodium] 2 - 4 mg PO PRN PRN 09/29/17 Acetaminophen [Tylenol] 650 mg PO Q8H PRN 01/30/18 Furosemide [Furosemide] 40 mg PO DAILY 01/30/18 Ipratropium [place] 2 sprays OMID Q8H PRN 01/30/18 Lidocaine Patch 5% [Lidoderm Patch] 1 each TOP DAILY PRN 01/30/18 Multivitamin [Theragran] 1 each PO DAILY 01/30/18 Omeprazole [Omeprazole] 40 mg PO QDAC 01/30/18 Saccharomyces Boulardii [Florastor] 250 mg PO DAILYWM 01/30/18 Triamcinolone 0.1% Cream [Kenalog 0.1% Cream] 1 applic TOP BID 01/30/18 Objective - Vital Signs/Intake & Output Reviewed Vital Signs: Yes Vital Signs: Vital Signs x48h Temp Pulse Pulse Resp BP Pulse Ox 02/01/18 08:00 36.7 C 79 16 136/72 H 93 02/01/18 01:00 74 18 Intake & Output: Intake & Output 01/29/18 01/30/18 01/31/18 02/01/18 23:59 23:59 23:59 23:59 Intake Total 1430 1360 Balance 1430 1360 - Objective General Appearance: positive: Alert, Moderate distress, Anxious Eyes Bilateral: positive: Normal inspection Eyes: OU Conjunctivae pale ENT: positive: ENT inspection nml, Pharynx nml, Dry mucous membranes Neck: positive: Nml inspection, Thyroid nml, Trachea midline Respiratory: positive: Chest non-tender, Wheezes, Rhonchi Cardiovascular: positive: Irregularly irregular, Systolic murmur, Decreased pulse(s) Peripheral Pulses: 1+ Radial (R), 1+ Radial (L) Abdomen: positive: Non-tender, Nml bowel sounds Back: positive: Nml inspection Skin: positive: No rash, Warm, Dry, Pallor Extremities: positive: Non-tender, Full ROM, Pedal edema Neurologic/Psychiatric: positive: Oriented x3, CN's nml (2-12), Motor nml, Sensation nml, Depressed mood/affect Reflexes: Bicep (R): 1+, Bicep (L): 1+ - Lab Results Fish Bones: 02/01/18 05:00 02/01/18 05:00 Other Labs: Lab Results x24hrs 02/01/18 02/01/18 02/01/18 Range/Units 05:00 05:00 05:00 WBC 4.4 L (4.8-10.8) x10^3/uL RBC 4.32 (4.20-5.40) 10^6/uL Hgb 12.0 (12.0-16.0) g/dL Hct 37.1 (37.0-47.0) % MCV 85.9 (81.0-99.0) fL MCH 27.8 (27.0-31.0) pg MCHC 32.3 (32.0-36.0) g/dL RDW 16.3 H (12.0-15.0) % Plt Count 192 (130-450) 10^3/uL MPV 7.3 L (7.9-10.8) fL Neut # 3.9 (1.5-6.6) 10^3/uL Lymph # 0.4 L (1.5-3.5) 10^3/uL [place] # 0.1 (0.0-1.0) 10^3/uL Eos # 0.0 (0.0-0.7) 10^3/uL Baso # 0.0 (0.0-0.1) 10^3/uL Absolute Nucleated RBC 0.01 x10^3/uL Nucleated RBC % 0.2 /100WBC Sodium 136 (135-145) mmol/L Potassium 3.7 (3.5-5.0) mmol/L Chloride 93 L (101-111) mmol/L Carbon Dioxide 29 (21-32) mmol/L Anion Gap 14.0 H (6-13) BUN 25 H (6-20) mg/dL Creatinine 1.1 H (0.4-1.0) mg/dL Estimated GFR (MDRD) 48 L (>89) Glucose 171 H (70-100) mg/dL Calcium 9.2 (8.5-10.3) mg/dL Magnesium 2.0 (1.7-2.8) mg/dL Total Bilirubin 0.5 (0.2-1.0) mg/dL AST 40 (10-42) IU/L ALT 23 (10-60) IU/L Alkaline Phosphatase 45 (42-121) IU/L B-Natriuretic Peptide 336 H (5-100) pg/mL Total Protein 7.0 (6.7-8.2) g/dL Albumin 3.7 (3.2-5.5) g/dL Globulin 3.3 (2.1-4.2) g/dL Albumin/Globulin Ratio 1.1 (1.0-2.2) - Diagnostic Imaging Diagnostic Imaging Results: positive: Final report reviewed Assessment/Plan - Problem List (1) Pneumonia Impression: Patient was noted to have bilateral pneumonia on imaging completed on admission. She has a chronic cough that has become worse, with increased oxygen needs. She has been afebrile with no WBC elevation. Plan: Treat with low dose steroids and this has been changed to IV today, IV antibiotics and flutter valve per RT. Qualifiers: Pneumonia type: due to Mycoplasma pneumoniae Laterality: bilateral (2) Moderate COPD (chronic obstructive pulmonary disease) Impression: Patient sees a smoke room operator in [place] for her chronic lung disease. She was scheduled to have a liver ultrasound as an outpatient, however, this is now on hold due to this hospital stay. Per patient, she is required to have the ultrasound to qualify for a new "lung medication". She wears chronic oxygen at home. Plan: Continue nebulizers per RT, flutter valve and steroids. We will ensure the liver US is re-scheduled before the patient is discharged, unless this is on the weekend. (3) CHF (congestive heart failure) Impression: Patient had an increased right sided heart pressure of 157mmHg at rest on her most recent Echo. She has very mild BLE edema, but this does seem dependent as it becomes less after she is in bed. Plan: Continue lasix and add Spironolactone. Qualifiers: Congestive heart failure type: combined Congestive heart failure chronicity : acute on chronic Qualified Code(s): I50.43 - Acute on chronic combined systolic (congestive) and diastolic (congestive) heart failure (4) Chronic pain Impression: Patient has osteoarthritis and suffers with back and neck pain. She takes scheduled oxycodone TID at home, and this is prescribed here as well. Plan: Offer pain medications as needed and consider Methadone as a fdc solution. Qualifiers: Chronic pain type: chronic pain syndrome Qualified Code(s): G89.4 - Chronic pain syndrome
[2018-02-01] MEDS: MAGNESIUM OXIDE 400 MG TABLET PO SCH ×2 (09:08→16:41)
[2018-02-01] MEDS: SPIRONOLACTONE 25 MG TABLET PO SCH ×2 (09:08→10:01)
[2018-02-01] MEDS: cefTRIAXone 2 GM in SODIUM CHLORIDE 0.9% MINIBAG 100 ML IV SCH (09:59)
[2018-02-01] MEDS: POLYETHYLENE GLYCOL 3350 17 GM PACKET PO SCH (09:59)
[2018-02-01] MEDS: guaiFENesin 600 MG TABLET PO SCH ×2 (10:00→21:18)
[2018-02-01] MEDS: ESCITALOPRAM 10 MG TABLET PO SCH (10:00)
[2018-02-01] MEDS: FUROSEMIDE 40 MG TABLET PO SCH (10:00)
[2018-02-01] MEDS: MISOPROSTOL PO SCH (10:01)
[2018-02-01] MEDS: DICLOFENAC PO SCH (10:01)
[2018-02-01] MEDS: AZITHROMYCIN INJ 250 MG in SODIUM CHLORIDE 0.9% 250 ML IV SCH (10:48)
[2018-02-01] MEDS ORDERED: LIDOCAINE PATCH 5% TOP PRN (14:46)
[2018-02-01] MEDS ORDERED: ACETAMINOPHEN 325 MG TABLET PO PRN (14:46)
[2018-02-01] MEDS: SACCHAROMYCES BOULARDII 250 MG CAPSULE PO SCH (16:41)
[2018-02-01] MEDS: BUDESONIDE 0.5 MG/2 ML NEB INH SCH ×2 (18:23→19:30)
[2018-02-01] MEDS: FORMOTEROL FUMARATE NEB 20 MCG/2 ML INH SCH ×2 (18:23→19:30)
[2018-02-01] MEDS ORDERED: A & D OINTMENT 5 GM PACKET TOP PRN (18:27)
[2018-02-01] MEDS ORDERED: SODIUM CHLORIDE 0.65% NASAL SPRAY NAS PRN (19:06)
[2018-02-01] MEDS: ATORVASTATIN 10 MG TABLET PO SCH (21:18)
[2018-02-01] MEDS: traZODone 50 MG TABLET PO SCH (21:18)
[2018-02-02] MEDS: IPRATROPIUM/ALBUTEROL 3 ML NEB INH SCH ×4 (01:35→19:30)
[2018-02-02] MEDS: PANTOPRAZOLE 40 MG TABLET PO SCH ×2 (05:52→06:46)
[2018-02-02 05:58] LABS: BASOPHILS % (AUTO) 0.1 %; HGB - HEMOGLOBIN 11.2 g/dL (12.0-16.0); LYMPHOCYTES # (AUTO) 0.4 10^3/uL (1.5-3.5); LYMPHOCYTES % (AUTO) 6.2 %; MEAN CORPUSCULAR HEMOGLOBIN 27.9 pg (27.0-31.0); MEAN CORPUSCULAR HGB CONC 32.9 g/dL (32.0-36.0); MEAN CORPUSCULAR VOLUME 84.8 fL (81.0-99.0); MEAN PLATELET VOLUME 7.3 fL (7.9-10.8); MONOCYTES # (AUTO) 0.4 10^3/uL (0.0-1.0); MONOCYTES % (AUTO) 6.2 %; NEUTROPHILS # (AUTO) 5.5 10^3/uL (1.5-6.6); NEUTROPHILS % (AUTO) 87.5 %; PLT - PLATELET COUNT 192 10^3/uL (130-450); RED BLOOD COUNT 4.02 10^6/uL (4.20-5.40); RED CELL DISTRIBUTION WIDTH 16.4 % (12.0-15.0); WHITE BLOOD COUNT 6.2 x10^3/uL (4.8-10.8)
[2018-02-02 06:08] LABS: ALBUMIN 3.5 g/dL (3.2-5.5); ALBUMIN/GLOBULIN RATIO 1.3 (1.0-2.2); BILIRUBIN,TOTAL 0.6 mg/dL (0.2-1.0); CALCIUM 8.9 mg/dL (8.5-10.3); CREATININE 0.8 mg/dL (0.4-1.0); TOTAL PROTEIN 6.1 g/dL (6.7-8.2)
[2018-02-02] MEDS: SODIUM CHLORIDE FLUSH 0.9% 10 ML SYRINGE IVP PRN (06:46)
[2018-02-02] MEDS: oxyCODONE ER 10 MG TABLET PO SCH ×3 (06:46→21:04)
[2018-02-02] MEDS: methylPREDNISolone SUCCINATE 40 MG/ML VIAL IVP SCH (06:46)
[2018-02-02] MEDS: LOPERAMIDE 2 MG CAPSULE PO PRN ×4 (08:59→21:53)
[2018-02-02] MEDS: SACCHAROMYCES BOULARDII 250 MG CAPSULE PO SCH (08:59)
[2018-02-02] MEDS: MAGNESIUM OXIDE 400 MG TABLET PO SCH ×2 (08:59→17:12)
[2018-02-02] MEDS: BUDESONIDE 0.5 MG/2 ML NEB INH SCH ×2 (09:00→19:30)
[2018-02-02] MEDS: FORMOTEROL FUMARATE NEB 20 MCG/2 ML INH SCH ×2 (09:00→19:30)
[2018-02-02] MEDS: cefTRIAXone 2 GM in SODIUM CHLORIDE 0.9% MINIBAG 100 ML IV SCH (10:30)
[2018-02-02] MEDS: SPIRONOLACTONE 25 MG TABLET PO SCH (10:31)
[2018-02-02] MEDS: SODIUM CHLORIDE FLUSH 0.9% 10 ML SYRINGE IVP SCH ×3 (10:31→17:12)
[2018-02-02] MEDS: guaiFENesin 600 MG TABLET PO SCH ×2 (10:31→20:56)
[2018-02-02] MEDS: ESCITALOPRAM 10 MG TABLET PO SCH (10:31)
[2018-02-02] MEDS: FUROSEMIDE 40 MG TABLET PO SCH (10:31)
[2018-02-02] MEDS: MULTIVITAMIN TABLET PO SCH (10:31)
[2018-02-02] MEDS: MISOPROSTOL PO SCH (10:32)
[2018-02-02] MEDS: POLYETHYLENE GLYCOL 3350 17 GM PACKET PO SCH (10:32)
[2018-02-02] MEDS: DICLOFENAC PO SCH (10:32)
[2018-02-02] MEDS: guaiFENesin/CODEINE 5 ML UDC PO SCH ×2 (11:40→17:24)
[2018-02-02] MEDS: AZITHROMYCIN INJ 250 MG in SODIUM CHLORIDE 0.9% 250 ML IV SCH (11:51)
--- NOTE | 2018-02-02 14:44 | PROVIDER PROGRESS NOTE ---
Assessment/Plan - Problem List (1) Diarrhea Qualifiers: Diarrhea type: unspecified type Qualified Code(s): R19.7 - Diarrhea, unspecified Assessment/Plan: Probbaly related to getting stool softener plus iv antibiotics. Will check for C diff and treat with Lomotil, previously ordered as well as Florastor, already ordered. (2) Pneumonia Qualifiers: Laterality: bilateral Assessment/Plan: No cultures are pos. Continue empiric iv antibiotics. Will make Robitussin scheduled so she can expectorate. (3) Decompensated COPD with exacerbation (chronic obstructive pulmonary disease) Assessment/Plan: Still very symptomatic. Will icrease her Solumedrol dose from 40 mg tid to 125 mg tid. (4) Cor pulmonale Assessment/Plan: Echo shows a massive RV with poor function, concave septum pushing into the LV and a small LV with normal function, severe pulmonary HTN with PA pressure 84 mmHg (decreased from 157 mmHg five mos ago). Her leg edema has resolved. Continue with gentle diuresis with Spironolactone and po Lasix. Pt says she is seeing Pulm and Cardiol in [place] for this problem. - Current Meds Current Meds: Current Medications Generic Name Dose Route Start Last Admin Trade Name Freq PRN Reason Stop Dose Admin Albuterol/Ipratropium 3 ml 01/30/18 06:00 02/02/18 09:00 Duoneb INH 3 ml Q6HR [facility] Administration Atorvastatin Calcium 10 mg 01/30/18 21:00 02/01/18 21:18 Lipitor PO 10 mg HS [facility] Administration Budesonide 0.5 mg 01/30/18 07:37 02/02/18 09:00 Pulmicort INH 0.5 mg RTBID [facility] Administration Escitalopram Oxalate 10 mg 01/30/18 09:00 02/02/18 10:31 Lexapro PO 10 mg DAILY [facility] Administration Formoterol Fumarate 20 mcg 01/30/18 07:30 02/02/18 09:00 Perforomist INH 20 mcg RTBID [facility] Administration Furosemide 40 mg 02/01/18 09:00 02/02/18 10:31 Lasix PO 40 mg DAILY [facility] Administration Guaifenesin 600 mg 01/31/18 14:00 02/02/18 10:31 Mucinex PO 600 mg BID [facility] Administration Guaifenesin/Codeine Phosphate 5 ml 02/02/18 12:00 02/02/18 11:40 Robitussin Ac PO 5 ml Q6HR [facility] Administration Ceftriaxone Sodium 2 gm/ 100 mls @ 200 mls/hr 01/30/18 06:00 02/02/18 11:46 Sodium Chloride IV Infused Q24H [facility] Infusion Azithromycin 250 mg/ Sodium 250 mls @ 250 mls/hr 02/02/18 12:00 02/02/18 11: 51 Chloride IV 250 mls/hr Q24H [facility] Administration Loperamide HCl 4 mg 01/30/18 04:54 02/02/18 11:37 Imodium PO 4 mg Q2H PRN Administration Diarrhea Magnesium Oxide 400 mg 01/30/18 18:07 02/02/18 08:59 Mag Ox PO 400 mg BIDWM [facility] Administration Multivitamins 1 tab 02/02/18 09:00 02/02/18 10:31 Theragran PO 1 tab DAILY [facility] Administration Oxycodone HCl 10 mg 01/30/18 06:00 02/02/18 06:46 Oxycontin PO 10 mg TID [facility] Administration Pantoprazole Sodium 40 mg 02/01/18 16:30 02/02/18 05:52 Protonix PO Not Given QDAC [facility] [Diclofenac- 1 each 01/30/18 09:00 02/02/18 10:32 Misoprost 50-200 Tb] PO Not Given 1 Tab) DAILY [facility] Polyethylene Glycol 17 gm 01/30/18 09:00 02/02/18 10:32 Miralax PO Not Given DAILY [facility] Saccharomyces Boulardii 250 mg 02/01/18 15:00 02/02/18 08:59 Florastor PO 250 mg DAILYWM [facility] Administration Sodium Chloride 10 ml 01/30/18 04:51 02/02/18 06:46 Normal Saline Flush 0.9% IVP 10 ml PRN PRN Administration NEEDED PER PROVIDER ORDERS Sodium Chloride 10 ml 01/30/18 09:00 02/02/18 10:31 Normal Saline Flush 0.9% IVP 10 ml 0100,0900,1700 [facility] Administration Spironolactone 25 mg 02/01/18 08:00 02/02/18 10:31 Aldactone PO 25 mg DAILY [facility] Administration Throat Lozenges 1 lozenge 01/30/18 23:48 01/31/18 00:07 Cepacol MM 1 lozenge Q2HR PRN Administration Throat pain Trazodone HCl 50 mg 01/30/18 21:00 02/01/18 21:18 Desyrel PO 50 mg QPM [facility] Administration - Lab Result Fish Bone Diagrams: 02/02/18 05:12 02/02/18 05:12 - Additional Planning My Orders: My Active Orders 02/02/18 12:00 guaiFENesin/CODEINE [Robitussin AC] 5 ml PO Q6HR 02/02/18 14:00 methylPREDNISolone SUCCINATE [SOLU-Medrol (125MG VIAL)] 125 mg IVP TID Subjective - Subjective Patient Reports: Shortness of Breath, Other ("It hurts to take a deep breath". Wet non-productive cough. Very SOB going to bathroom.) Nursing Reports: Diarrhea Objective Vital Signs: Vital Signs - 24 hr 02/01/18 02/01/18 02/01/18 15:33 19:30 23:55 Temperature 36.5 C 36.7 C Heart Rate 65 Heart Rate [ 82 80 Brachial] Respiratory 18 16 18 Rate Blood Pressure 141/73 H 147/78 H [Right Brachial artery] O2 Saturation 92 98 02/02/18 02/02/18 02/02/18 01:35 08:00 09:00 Temperature 36.9 C Heart Rate 82 87 Heart Rate [ 89 Brachial] Respiratory 18 18 16 Rate Blood Pressure 136/72 H [Right Brachial artery] O2 Saturation 95 Oxygen O2 Source Nasal cannula I&O (Last 24 Hrs): Intake and Output Totals x24h 01/31/18 02/01/18 02/02/18 23:59 23:59 23:59 Intake Total 1360 1390 900 Balance 1360 1390 900 General: Alert, Oriented x3 HEENT: Mucous membr. moist/pink, Other (on O2 per nasal cannula (which she is on 24/06 since 10/18)) Neck: Supple, No JVD Neuro: Non Focal Cardiovascular: Regular rate, Other (distant HS, 1-2/6 systolic murmur at LLSB, PMI is vertically displaced.) Respiratory: Wheezes (scattered ant and posteriorly.), Other (Prolonged expiratory phase) Abdomen: Soft, No tenderness Extremities: No edema - Results Results: Laboratory Results WBC 6.2 x10^3/uL (4.8-10.8) 02/02/18 05:12 RBC 4.02 10^6/uL (4.20-5.40) L 02/02/18 05:12 Hgb 11.2 g/dL (12.0-16.0) L 02/02/18 05:12 Hct 34.1 % (37.0-47.0) L 02/02/18 05:12 MCV 84.8 fL (81.0-99.0) 02/02/18 05:12 MCH 27.9 pg (27.0-31.0) 02/02/18 05:12 MCHC 32.9 g/dL (32.0-36.0) 02/02/18 05:12 RDW 16.4 % (12.0-15.0) H 02/02/18 05:12 Plt Count 192 10^3/uL (130-450) 02/02/18 05:12 MPV 7.3 fL (7.9-10.8) L 02/02/18 05:12 Neut # 5.5 10^3/uL (1.5-6.6) 02/02/18 05:12 Lymph # 0.4 10^3/uL (1.5-3.5) L 02/02/18 05:12 [place] # 0.4 10^3/uL (0.0-1.0) 02/02/18 05:12 Eos # 0.0 10^3/uL (0.0-0.7) 02/02/18 05:12 Baso # 0.0 10^3/uL (0.0-0.1) 02/02/18 05:12 Absolute Nucleated RBC 0.01 x10^3/uL 02/02/18 05:12 Nucleated RBC % 0.1 /100WBC 02/02/18 05:12 Sodium 135 mmol/L (135-145) 02/02/18 05:12 Potassium 3.6 mmol/L (3.5-5.0) 02/02/18 05:12 Chloride 96 mmol/L (101-111) L 02/02/18 05:12 Carbon Dioxide 29 mmol/L (21-32) 02/02/18 05:12 Anion Gap 10.0 (6-13) 02/02/18 05:12 BUN 23 mg/dL (6-20) H 02/02/18 05:12 Creatinine 0.8 mg/dL (0.4-1.0) 02/02/18 05:12 Estimated GFR (MDRD) 70 (>89) L 02/02/18 05:12 Glucose 182 mg/dL (70-100) H 02/02/18 05:12 Calcium 8.9 mg/dL (8.5-10.3) 02/02/18 05:12 Magnesium 2.0 mg/dL (1.7-2.8) 02/01/18 05:00 Total Bilirubin 0.6 mg/dL (0.2-1.0) 02/02/18 05:12 AST 20 IU/L (10-42) 02/02/18 05:12 ALT 21 IU/L (10-60) 02/02/18 05:12 Alkaline Phosphatase 38 IU/L (42-121) L 02/02/18 05:12 Troponin I < 0.04 ng/mL (<0.49) 01/30/18 02:55 B-Natriuretic Peptide 233 pg/mL (5-100) H 02/02/18 05:12 Total Protein 6.1 g/dL (6.7-8.2) L 02/02/18 05:12 Albumin 3.5 g/dL (3.2-5.5) 02/02/18 05:12 Globulin 2.6 g/dL (2.1-4.2) 02/02/18 05:12 Albumin/Globulin Ratio 1.3 (1.0-2.2) 02/02/18 05:12 Lipase < 10 U/L (22-51) L 01/30/18 02:55 - Procedures Procedures: Procedures REPLACEMENT OF LEFT LENS WITH SYNTH SUB, PERC APPROACH (09/19/16)
[2018-02-02] MEDS: methylPREDNISolone SUCCINATE 125 MG/2 ML VIAL IVP SCH ×2 (14:52→21:04)
[2018-02-02] MEDS: ATORVASTATIN 10 MG TABLET PO SCH (20:57)
[2018-02-02] MEDS: traZODone 50 MG TABLET PO SCH (20:57)
[2018-02-03] MEDS: LOPERAMIDE 2 MG CAPSULE PO PRN (02:19)
[2018-02-03] MEDS: guaiFENesin/CODEINE 5 ML UDC PO SCH ×4 (02:21→17:14)
[2018-02-03] MEDS: SODIUM CHLORIDE FLUSH 0.9% 10 ML SYRINGE IVP SCH ×3 (02:21→17:14)
[2018-02-03 05:22] LABS: BASOPHILS % (AUTO) 0.1 %; HGB - HEMOGLOBIN 10.9 g/dL (12.0-16.0); LYMPHOCYTES # (AUTO) 0.5 10^3/uL (1.5-3.5); LYMPHOCYTES % (AUTO) 8.8 %; MEAN CORPUSCULAR HEMOGLOBIN 27.6 pg (27.0-31.0); MEAN CORPUSCULAR HGB CONC 32.4 g/dL (32.0-36.0); MEAN CORPUSCULAR VOLUME 85.1 fL (81.0-99.0); MEAN PLATELET VOLUME 6.8 fL (7.9-10.8); MONOCYTES # (AUTO) 0.5 10^3/uL (0.0-1.0); MONOCYTES % (AUTO) 7.5 %; NEUTROPHILS # (AUTO) 5.2 10^3/uL (1.5-6.6); NEUTROPHILS % (AUTO) 83.6 %; PLT - PLATELET COUNT 215 10^3/uL (130-450); RED BLOOD COUNT 3.94 10^6/uL (4.20-5.40); RED CELL DISTRIBUTION WIDTH 16.8 % (12.0-15.0); WHITE BLOOD COUNT 6.2 x10^3/uL (4.8-10.8)
[2018-02-03 05:35] LABS: ALBUMIN 3.4 g/dL (3.2-5.5); ALBUMIN/GLOBULIN RATIO 1.2 (1.0-2.2); BILIRUBIN,TOTAL 0.2 mg/dL (0.2-1.0); CALCIUM 9.1 mg/dL (8.5-10.3); TOTAL PROTEIN 6.3 g/dL (6.7-8.2)
[2018-02-03] MEDS: oxyCODONE ER 10 MG TABLET PO SCH ×3 (07:01→21:29)
[2018-02-03] MEDS: PANTOPRAZOLE 40 MG TABLET PO SCH (07:02)
[2018-02-03] MEDS: methylPREDNISolone SUCCINATE 125 MG/2 ML VIAL IVP SCH ×3 (07:02→21:29)
[2018-02-03] MEDS: DIPHENOX/ATROPINE 2.5/0.025 MG TABLET PO PRN ×2 (07:35→22:37)
[2018-02-03] MEDS: ESCITALOPRAM 10 MG TABLET PO SCH (08:58)
[2018-02-03] MEDS: FUROSEMIDE 40 MG TABLET PO SCH (08:58)
[2018-02-03] MEDS: SPIRONOLACTONE 25 MG TABLET PO SCH (08:58)
[2018-02-03] MEDS: SACCHAROMYCES BOULARDII 250 MG CAPSULE PO SCH (08:58)
[2018-02-03] MEDS: guaiFENesin 600 MG TABLET PO SCH ×2 (08:58→21:28)
[2018-02-03] MEDS: BENZOCAINE/MENTHOL LOZENGE MM PRN (08:58)
[2018-02-03] MEDS: POLYETHYLENE GLYCOL 3350 17 GM PACKET PO SCH (08:59)
[2018-02-03] MEDS: MAGNESIUM OXIDE 400 MG TABLET PO SCH ×2 (08:59→17:13)
[2018-02-03] MEDS: MULTIVITAMIN TABLET PO SCH (08:59)
[2018-02-03] MEDS: cefTRIAXone 2 GM in SODIUM CHLORIDE 0.9% MINIBAG 100 ML IV SCH (08:59)
[2018-02-03] MEDS: IPRATROPIUM/ALBUTEROL 3 ML NEB INH SCH ×4 (09:15→19:40)
[2018-02-03] MEDS: FORMOTEROL FUMARATE NEB 20 MCG/2 ML INH SCH ×2 (09:25→19:41)
[2018-02-03] MEDS: BUDESONIDE 0.5 MG/2 ML NEB INH SCH ×2 (09:35→19:41)
[2018-02-03] MEDS: MISOPROSTOL PO SCH (09:54)
[2018-02-03] MEDS: DICLOFENAC PO SCH (09:54)
--- NOTE | 2018-02-03 11:44 | PROVIDER PROGRESS NOTE ---
Assessment/Plan - Problem List (1) Diarrhea Qualifiers: Diarrhea type: unspecified type Qualified Code(s): R19.7 - Diarrhea, unspecified Assessment/Plan: >6 BMs continue. This started after iv antibiotics begun for community acquired pneumonia. C diff PCR was neg. Pt on Florastor and Lomotil. Will add Metamucil to [id number]. (2) Pneumonia Qualifiers: Laterality: bilateral Assessment/Plan: Neg culture to date. Continue empiric antibiotics. (3) Decompensated COPD with exacerbation (chronic obstructive pulmonary disease) Assessment/Plan: Pt on high dose iv steroids. Still has a cough that she cannot expectorate. Will order Chest PT. Pt had this in the past and says oit helped. Continue Robitussin and Mucinex scheduled. (4) Cor pulmonale Assessment/Plan: Continue gentle diuresis. Watch K and Mg, BUN/creat. - Current Meds Current Meds: Current Medications Generic Name Dose Route Start Last Admin Trade Name Freq PRN Reason Stop Dose Admin Albuterol/Ipratropium 3 ml 01/30/18 06:00 02/03/18 09:15 Duoneb INH 3 ml Q6HR [facility] Administration Atorvastatin Calcium 10 mg 01/30/18 21:00 02/02/18 20:57 Lipitor PO 10 mg HS [facility] Administration Budesonide 0.5 mg 01/30/18 07:37 02/03/18 09:35 Pulmicort INH 0.5 mg RTBID [facility] Administration Diphenoxylate HCl/Atropine 1 tab 01/30/18 04:54 02/03/18 07:35 Lomotil PO 1 tab TID PRN Administration Diarrhea Escitalopram Oxalate 10 mg 01/30/18 09:00 02/03/18 08:58 Lexapro PO 10 mg DAILY [facility] Administration Formoterol Fumarate 20 mcg 01/30/18 07:30 02/03/18 09:25 Perforomist INH 20 mcg RTBID [facility] Administration Furosemide 40 mg 02/01/18 09:00 02/03/18 08:58 Lasix PO 40 mg DAILY [facility] Administration Guaifenesin 600 mg 01/31/18 14:00 02/03/18 08:58 Mucinex PO 600 mg BID [facility] Administration Guaifenesin/Codeine Phosphate 5 ml 02/02/18 12:00 02/03/18 07:02 Robitussin Ac PO 5 ml Q6HR [facility] Administration Ceftriaxone Sodium 2 gm/ 100 mls @ 200 mls/hr 01/30/18 06:00 02/03/18 09:35 Sodium Chloride IV Infused Q24H [facility] Infusion Azithromycin 250 mg/ Sodium 250 mls @ 250 mls/hr 02/02/18 12:00 02/02/18 15: 28 Chloride IV Infused Q24H [facility] Infusion Loperamide HCl 4 mg 01/30/18 04:54 02/03/18 02:19 Imodium PO 4 mg Q2H PRN Administration Diarrhea Magnesium Oxide 400 mg 01/30/18 18:07 02/03/18 08:59 Mag Ox PO 400 mg BIDWM [facility] Administration Methylprednisolone Sodium Succinate 125 mg 02/02/18 14:00 02/03/18 07:02 Solu-Medrol (125mg Vial) IVP 125 mg TID [facility] Administration Multivitamins 1 tab 02/02/18 09:00 02/03/18 08:59 Theragran PO 1 tab DAILY [facility] Administration Oxycodone HCl 10 mg 01/30/18 06:00 02/03/18 07:01 Oxycontin PO 10 mg TID [facility] Administration Pantoprazole Sodium 40 mg 02/01/18 16:30 02/03/18 07:02 Protonix PO 40 mg QDAC [facility] Administration [Diclofenac- 1 each 01/30/18 09:00 02/03/18 09:54 Misoprost 50-200 Tb] PO Not Given 1 Tab) DAILY [facility] Polyethylene Glycol 17 gm 01/30/18 09:00 02/03/18 08:59 Miralax PO Not Given DAILY [facility] Saccharomyces Boulardii 250 mg 02/01/18 15:00 02/03/18 08:58 Florastor PO 250 mg DAILYWM [facility] Administration Sodium Chloride 10 ml 01/30/18 04:51 02/02/18 06:46 Normal Saline Flush 0.9% IVP 10 ml PRN PRN Administration NEEDED PER PROVIDER ORDERS Sodium Chloride 10 ml 01/30/18 09:00 02/03/18 07:02 Normal Saline Flush 0.9% IVP 10 ml 0100,0900,1700 [facility] Administration Spironolactone 25 mg 02/01/18 08:00 02/03/18 08:58 Aldactone PO 25 mg DAILY [facility] Administration Throat Lozenges 1 lozenge 01/30/18 23:48 02/03/18 08:58 Cepacol MM 1 lozenge Q2HR PRN Administration Throat pain Trazodone HCl 50 mg 01/30/18 21:00 02/02/18 20:57 Desyrel PO 50 mg QPM [facility] Administration - Lab Result Fish Bone Diagrams: 02/03/18 05:12 02/03/18 05:12 - Additional Planning My Orders: My Active Orders 02/02/18 12:00 guaiFENesin/CODEINE [Robitussin AC] 5 ml PO Q6HR 02/02/18 14:00 methylPREDNISolone SUCCINATE [SOLU-Medrol (125MG VIAL)] 125 mg IVP TID 02/04/18 05:00 BMP - BASIC METABOLIC PANEL [CHEM] DAILYLAB CBC - COMP BLD CT W/AUTO DIFF [HEME] DAILYLAB MAGNESIUM [CHEM] Routine Subjective - Subjective Patient Reports: Other (No better with SOB, diarrhea and has a frontal headache , got poor sleep last night.) Objective Vital Signs: Vital Signs - 24 hr 02/02/18 02/02/18 02/02/18 15:26 16:10 19:30 Temperature 36.8 C Heart Rate 85 70 Heart Rate [ 85 Brachial] Respiratory 16 20 16 Rate Blood Pressure 146/77 H [Right Brachial artery] O2 Saturation 91 L 02/02/18 02/03/18 02/03/18 23:36 07:40 09:15 Temperature 36.4 C L 36.5 C Heart Rate 74 Heart Rate [ 95 78 Brachial] Respiratory 18 18 18 Rate Blood Pressure 130/64 151/82 H [Right Brachial artery] O2 Saturation 92 92 Oxygen O2 Source Nasal cannula I&O (Last 24 Hrs): Intake and Output Totals x24h 02/01/18 02/02/18 02/03/18 23:59 23:59 23:59 Intake Total 1390 1650 220 Balance 1390 1650 220 General: Alert, Oriented x3, Other (Pursed lip breathing, returning to bed from bathroom.) HEENT: Mucous membr. moist/pink Neck: Supple, No JVD Neuro: Non Focal Cardiovascular: Regular rate, No murmurs Respiratory: Other (No wheezes, but has a prolonged expiratory phase) Abdomen: Soft Extremities: No edema - Results Results: Laboratory Results WBC 6.2 x10^3/uL (4.8-10.8) 02/03/18 05:12 RBC 3.94 10^6/uL (4.20-5.40) L 02/03/18 05:12 Hgb 10.9 g/dL (12.0-16.0) L 02/03/18 05:12 Hct 33.6 % (37.0-47.0) L 02/03/18 05:12 MCV 85.1 fL (81.0-99.0) 02/03/18 05:12 MCH 27.6 pg (27.0-31.0) 02/03/18 05:12 MCHC 32.4 g/dL (32.0-36.0) 02/03/18 05:12 RDW 16.8 % (12.0-15.0) H 02/03/18 05:12 Plt Count 215 10^3/uL (130-450) 02/03/18 05:12 MPV 6.8 fL (7.9-10.8) L 02/03/18 05:12 Neut # 5.2 10^3/uL (1.5-6.6) 02/03/18 05:12 Lymph # 0.5 10^3/uL (1.5-3.5) L 02/03/18 05:12 [place] # 0.5 10^3/uL (0.0-1.0) 02/03/18 05:12 Eos # 0.0 10^3/uL (0.0-0.7) 02/03/18 05:12 Baso # 0.0 10^3/uL (0.0-0.1) 02/03/18 05:12 Absolute Nucleated RBC 0.00 x10^3/uL 02/03/18 05:12 Nucleated RBC % 0.0 /100WBC 02/03/18 05:12 Sodium 133 mmol/L (135-145) L 02/03/18 05:12 Potassium 3.7 mmol/L (3.5-5.0) 02/03/18 05:12 Chloride 91 mmol/L (101-111) L 02/03/18 05:12 Carbon Dioxide 31 mmol/L (21-32) 02/03/18 05:12 Anion Gap 11.0 (6-13) 02/03/18 05:12 BUN 25 mg/dL (6-20) H 02/03/18 05:12 Creatinine 1.0 mg/dL (0.4-1.0) 02/03/18 05:12 Estimated GFR (MDRD) 54 (>89) L 02/03/18 05:12 Glucose 149 mg/dL (70-100) H 02/03/18 05:12 Calcium 9.1 mg/dL (8.5-10.3) 02/03/18 05:12 Magnesium 2.0 mg/dL (1.7-2.8) 02/01/18 05:00 Total Bilirubin 0.2 mg/dL (0.2-1.0) 02/03/18 05:12 AST 22 IU/L (10-42) 02/03/18 05:12 ALT 19 IU/L (10-60) 02/03/18 05:12 Alkaline Phosphatase 41 IU/L (42-121) L 02/03/18 05:12 Troponin I < 0.04 ng/mL (<0.49) 01/30/18 02:55 B-Natriuretic Peptide 299 pg/mL (5-100) H 02/03/18 05:12 Total Protein 6.3 g/dL (6.7-8.2) L 02/03/18 05:12 Albumin 3.4 g/dL (3.2-5.5) 02/03/18 05:12 Globulin 2.9 g/dL (2.1-4.2) 02/03/18 05:12 Albumin/Globulin Ratio 1.2 (1.0-2.2) 02/03/18 05:12 Lipase < 10 U/L (22-51) L 01/30/18 02:55 - Procedures Procedures: Procedures REPLACEMENT OF LEFT LENS WITH SYNTH SUB, PERC APPROACH (09/19/16)
[2018-02-03] MEDS: PSYLLIUM PACKET PO PRN (12:18)
[2018-02-03] MEDS: AZITHROMYCIN INJ 250 MG in SODIUM CHLORIDE 0.9% 250 ML IV SCH (13:15)
[2018-02-03] MEDS: SODIUM CHLORIDE FLUSH 0.9% 10 ML SYRINGE IVP PRN (14:09)
[2018-02-03] MEDS: traZODone 50 MG TABLET PO SCH (21:29)
[2018-02-04] MEDS: guaiFENesin/CODEINE 5 ML UDC PO SCH ×4 (00:06→17:29)
[2018-02-04] MEDS: SODIUM CHLORIDE FLUSH 0.9% 10 ML SYRINGE IVP SCH ×3 (00:10→17:26)
[2018-02-04 06:01] LABS: BASOPHILS % (AUTO) 0.2 %; HGB - HEMOGLOBIN 12.1 g/dL (12.0-16.0); LYMPHOCYTES # (AUTO) 0.6 10^3/uL (1.5-3.5); LYMPHOCYTES % (AUTO) 8.2 %; MEAN CORPUSCULAR HEMOGLOBIN 27.5 pg (27.0-31.0); MEAN CORPUSCULAR HGB CONC 32.3 g/dL (32.0-36.0); MEAN CORPUSCULAR VOLUME 85.1 fL (81.0-99.0); MEAN PLATELET VOLUME 7.3 fL (7.9-10.8); MONOCYTES # (AUTO) 0.4 10^3/uL (0.0-1.0); MONOCYTES % (AUTO) 5.8 %; NEUTROPHILS # (AUTO) 6.6 10^3/uL (1.5-6.6); NEUTROPHILS % (AUTO) 85.8 %; PLT - PLATELET COUNT 258 10^3/uL (130-450); RED CELL DISTRIBUTION WIDTH 16.2 % (12.0-15.0); WHITE BLOOD COUNT 7.7 x10^3/uL (4.8-10.8)
[2018-02-04 06:11] LABS: CALCIUM 9.7 mg/dL (8.5-10.3); MAGNESIUM 2.3 mg/dL (1.7-2.8)
[2018-02-04] MEDS: PANTOPRAZOLE 40 MG TABLET PO SCH (06:32)
[2018-02-04] MEDS: oxyCODONE ER 10 MG TABLET PO SCH ×3 (06:32→21:27)
[2018-02-04] MEDS: methylPREDNISolone SUCCINATE 125 MG/2 ML VIAL IVP SCH (06:35)
[2018-02-04] MEDS: SODIUM CHLORIDE FLUSH 0.9% 10 ML SYRINGE IVP PRN ×2 (06:35→14:21)
[2018-02-04] MEDS: POLYETHYLENE GLYCOL 3350 17 GM PACKET PO SCH (07:19)
[2018-02-04] MEDS: IPRATROPIUM/ALBUTEROL 3 ML NEB INH SCH ×3 (07:29→16:20)
[2018-02-04] MEDS: FORMOTEROL FUMARATE NEB 20 MCG/2 ML INH SCH ×2 (07:29→16:22)
[2018-02-04] MEDS: BUDESONIDE 0.5 MG/2 ML NEB INH SCH ×2 (07:30→16:21)
[2018-02-04] MEDS ORDERED: SODIUM CHLORIDE FLUSH 0.9% 10 ML SYRINGE ONE (08:03)
[2018-02-04] MEDS: LOPERAMIDE 2 MG CAPSULE PO PRN ×2 (08:04→19:42)
[2018-02-04] MEDS: ESCITALOPRAM 10 MG TABLET PO SCH (08:04)
[2018-02-04] MEDS: MAGNESIUM OXIDE 400 MG TABLET PO SCH ×2 (08:05→17:26)
[2018-02-04] MEDS: DIPHENOX/ATROPINE 2.5/0.025 MG TABLET PO PRN ×2 (08:05→19:42)
[2018-02-04] MEDS: guaiFENesin 600 MG TABLET PO SCH ×2 (08:05→21:26)
[2018-02-04] MEDS: MULTIVITAMIN TABLET PO SCH (08:05)
[2018-02-04] MEDS: SPIRONOLACTONE 25 MG TABLET PO SCH (08:05)
[2018-02-04] MEDS: SACCHAROMYCES BOULARDII 250 MG CAPSULE PO SCH (08:05)
[2018-02-04] MEDS: FUROSEMIDE 40 MG TABLET PO SCH (08:05)
[2018-02-04] MEDS: PSYLLIUM PACKET PO PRN (08:06)
[2018-02-04] MEDS: cefTRIAXone 2 GM in SODIUM CHLORIDE 0.9% MINIBAG 100 ML IV SCH (08:06)
[2018-02-04] MEDS: MISOPROSTOL PO SCH (08:08)
[2018-02-04] MEDS: DICLOFENAC PO SCH (08:08)
--- NOTE | 2018-02-04 12:44 | PROVIDER PROGRESS NOTE ---
Subjective - Prog Note Date Prog Note Date: 02/04/18 Prog Note Time: 13:15 - Subjective Pt reports feeling: Improved Subjective: today is the first day she feels semi-normal w able to get out of bed and walk to bathroom. but still really sob. pursed lip breathing and gets tachypneic w effort. coughing spasms are less but still drive her nuts. urine incontinence w it as well. diarrhea is exhausting since she has to get up a lot w it. Current Medications - Current Medications Current Medications: Active Medications Acetaminophen (Tylenol) 650 mg PO Q8H PRN PRN Reason: PRN PAIN &/OR FEVER Last Admin: 02/03/18 18:42 Dose: 650 mg Albuterol/Ipratropium (Duoneb) 3 ml INH Q4H PRN PRN Reason: SOB Albuterol/Ipratropium (Duoneb) 3 ml INH RTTID [facility] Last Admin: 02/04/18 11:21 Dose: 3 ml Amoxicillin (Amoxil) 500 mg PO TID [facility] Atorvastatin Calcium (Lipitor) 10 mg PO HS [facility] Last Admin: 02/02/18 20:57 Dose: 10 mg Azithromycin (Zithromax) 250 mg PO DAILY [facility] Budesonide (Pulmicort) 0.5 mg INH RTBID [facility] Last Admin: 02/04/18 07:30 Dose: 0.5 mg Cholestyramine/Sucrose (Questran) 4 gm PO DAILY [facility] Diphenhydramine HCl (Benadryl) 25 mg PO QPM PRN PRN Reason: ITCHING Diphenoxylate HCl/Atropine (Lomotil) 1 tab PO TID PRN PRN Reason: Diarrhea Last Admin: 02/04/18 08:05 Dose: 1 tab Escitalopram Oxalate (Lexapro) 10 mg PO DAILY [facility] Last Admin: 02/04/18 08:04 Dose: 10 mg Formoterol Fumarate (Perforomist) 20 mcg INH RTBID [facility] Last Admin: 02/04/18 07:29 Dose: 20 mcg Furosemide (Lasix) 40 mg PO DAILY [facility] Last Admin: 02/04/18 08:05 Dose: 40 mg Guaifenesin (Mucinex) 600 mg PO BID [facility] Last Admin: 02/04/18 08:05 Dose: 600 mg Guaifenesin/Codeine Phosphate (Robitussin Ac) 5 ml PO Q6HR [facility] Last Admin: 02/04/18 12:38 Dose: 5 ml Lidocaine (Lidoderm Patch) 1 patch TOP DAILY PRN PRN Reason: PAIN Loperamide HCl (Imodium) 4 mg PO Q2H PRN PRN Reason: Diarrhea Last Admin: 02/04/18 08:04 Dose: 4 mg Magnesium Oxide (Mag Ox) 400 mg PO BIDWM [facility] Last Admin: 02/04/18 08:05 Dose: 400 mg Multivitamins (Theragran) 1 tab PO DAILY [facility] Last Admin: 02/04/18 08:05 Dose: 1 tab Oxycodone HCl (Oxycontin) 10 mg PO TID [facility] Last Admin: 02/04/18 06:32 Dose: 10 mg Pantoprazole Sodium (Protonix) 40 mg PO QDAC [facility] Last Admin: 02/04/18 06:32 Dose: 40 mg [Diclofenac- Misoprost 50-200 Tb] 1 Tab) 1 each PO DAILY [facility] Last Admin: 02/04/18 08:08 Dose: Not Given Polyethylene Glycol (Miralax) 17 gm PO DAILY [facility] Last Admin: 02/04/18 07:19 Dose: Not Given Psyllium Hydrophilic Mucilloid (Metamucil) 1 packet PO DAILY PRN PRN Reason: Constipation Last Admin: 02/04/18 08:06 Dose: 1 packet Saccharomyces Boulardii (Florastor) 250 mg PO DAILYWM [facility] Last Admin: 02/04/18 08:05 Dose: 250 mg Sodium Chloride (Normal Saline Flush 0.9%) 10 ml IVP PRN PRN PRN Reason: NEEDED PER PROVIDER ORDERS Last Admin: 02/04/18 06:35 Dose: 10 ml Sodium Chloride (Normal Saline Flush 0.9%) 10 ml IVP 0100,0900,1700 [facility] Last Admin: 02/04/18 08:09 Dose: Not Given Sodium Chloride (Assumption) 2 sprays OMID Q4HR PRN PRN Reason: Nasal Congestion Spironolactone (Aldactone) 25 mg PO DAILY [facility] Last Admin: 02/04/18 08:05 Dose: 25 mg Throat Lozenges (Cepacol) 1 lozenge MM Q2HR PRN PRN Reason: Throat pain Last Admin: 02/03/18 08:58 Dose: 1 lozenge Trazodone HCl (Desyrel) 50 mg PO QPM [facility] Last Admin: 02/03/18 21:29 Dose: 50 mg Vitamin A/Vitamin D (Vitamin A & D Ointment) 1 applic TOP PRN PRN PRN Reason: Skin Care Cholecalciferol (Vitamin D3) [Vitamin D3] 2,000 units PO DAILY 02/04/17 Diclofenac Sodium/Misoprostol [Diclofenac-Misoprost 50-200 Tb] 1 tab PO DAILY Ipratropium/Albuterol [Duoneb] 3 ml INH Q4H PRN 02/04/17 Lovastatin 40 mg PO QPM 02/04/17 Mometasone/Formoterol [Dulera 100 Mcg/5 Mcg Inhaler] 2 puffs INH BID 02/04/17 Trazodone HCl 50 mg PO QPM 02/04/17 diphenhydrAMINE [Benadryl] 25 - 50 mg PO QPM PRN 02/04/17 Escitalopram [Lexapro] 10 mg PO DAILY 02/19/17 oxyCODONE ER [OxyCONTIN] 10 mg PO TID 02/27/17 Albuterol Sulfate [Proair Hfa Inhaler] 2 puffs INH Q4H PRN 09/29/17 Diphenoxylate HCl/Atropine [Diphenoxylat-Atrop 2.5-0.025/5] 1 tab PO Q3H PRN Loperamide [Imodium] 2 - 4 mg PO PRN PRN 09/29/17 Acetaminophen [Tylenol] 650 mg PO Q8H PRN 01/30/18 Furosemide [Furosemide] 40 mg PO DAILY 01/30/18 Ipratropium [place] 2 sprays OMID Q8H PRN 01/30/18 Lidocaine Patch 5% [Lidoderm Patch] 1 each TOP DAILY PRN 01/30/18 Multivitamin [Theragran] 1 each PO DAILY 01/30/18 Omeprazole [Omeprazole] 40 mg PO QDAC 01/30/18 Saccharomyces Boulardii [Florastor] 250 mg PO DAILYWM 01/30/18 Triamcinolone 0.1% Cream [Kenalog 0.1% Cream] 1 applic TOP BID 01/30/18 Objective - Vital Signs/Intake & Output Reviewed Vital Signs: Yes Vital Signs: Vital Signs x48h Temp Pulse Pulse Resp BP Pulse Ox 02/04/18 11:29 80 22 02/04/18 08:00 35.7 C L 81 18 133/100 H 97 02/04/18 07:30 73 22 Intake & Output: Intake & Output 02/01/18 02/02/18 02/03/18 02/04/18 23:59 23:59 23:59 23:59 Intake Total 1390 1650 1110.000 560 Balance 1390 1650 1110.000 560 - Objective General Appearance: positive: Alert, Mild distress, Other (slender short statured white female who looks younger than stated age, standing in room and putting hydrocortisone on her hands for itching. Mild increase resp rate but able to have a nml conversation. nasal and congested. coughing spasms, nonproductive during exam) Eyes Bilateral: positive: PERRL ENT: positive: Pharyngeal erythema Neck: positive: No JVD. negative: Lymphadenopathy (R), Lymphadenopathy (L), Stiff neck, Carotid bruit Respiratory: positive: Chest non-tender, Rhonchi. negative: Wheezes (but she coughs spasmodically in mid exhalation, nothing on inspiration), Rales Cardiovascular: positive: Regular rate & rhythm, No murmur, No gallop. negative : Friction rub Abdomen: positive: Non-tender, No organomegaly, Nml bowel sounds Skin: positive: Warm, Dry Extremities: positive: Full ROM, No pedal edema Neurologic/Psychiatric: positive: Oriented x3, CN's nml (2-12), Motor nml - Lab Results Fish Bones: 02/04/18 05:17 02/04/18 05:17 Other Labs: Lab Results x24hrs 02/04/18 02/04/18 Range/Units 05:17 05:17 WBC 7.7 (4.8-10.8) x10^3/uL RBC 4.40 (4.20-5.40) 10^6/uL Hgb 12.1 (12.0-16.0) g/dL Hct 37.5 (37.0-47.0) % MCV 85.1 (81.0-99.0) fL MCH 27.5 (27.0-31.0) pg MCHC 32.3 (32.0-36.0) g/dL RDW 16.2 H (12.0-15.0) % Plt Count 258 (130-450) 10^3/uL MPV 7.3 L (7.9-10.8) fL Neut # 6.6 (1.5-6.6) 10^3/uL Lymph # 0.6 L (1.5-3.5) 10^3/uL [place] # 0.4 (0.0-1.0) 10^3/uL Eos # 0.0 (0.0-0.7) 10^3/uL Baso # 0.0 (0.0-0.1) 10^3/uL Absolute Nucleated RBC 0.00 x10^3/uL Nucleated RBC % 0.0 /100WBC Sodium 135 (135-145) mmol/L Potassium 3.4 L (3.5-5.0) mmol/L Chloride 90 L (101-111) mmol/L Carbon Dioxide 32 (21-32) mmol/L Anion Gap 13.0 (6-13) BUN 26 H (6-20) mg/dL Creatinine 1.0 (0.4-1.0) mg/dL Estimated GFR (MDRD) 54 L (>89) Glucose 166 H (70-100) mg/dL Calcium 9.7 (8.5-10.3) mg/dL Magnesium 2.3 (1.7-2.8) mg/dL Assessment/Plan - Problem List (1) Diarrhea Impression: >6 BMs continue. This started after iv antibiotics begun for community acquired pneumonia. C diff PCR was neg. Pt on Florastor and Lomotil and Metamucil to solidify. She is still up and down w it and exhausted at the effort of getting up and to the bathroom. but she is much improved today. Anticipate dc tomorrow or 02/06. Add cholestyramine to help with bulk of stool (2) Pneumonia Qualifiers: Laterality: bilateral Assessment/Plan: Blood cultures negative to date. Continue empiric antibiotics: Day #6 Ceftriaxone, Day #6 azithromycin. change to po amoxil and one more dose of azitromycin. Will need no further abx once home. Hypoxia is to 91% w 2 liters with walking. 97% on 2 liters at rest.will do RT check before dc (3) Decompensated COPD with exacerbation (chronic obstructive pulmonary disease) Assessment/Plan: Pt on high dose iv steroids. Still has a cough that she cannot expectorate. Will order Chest PT. Pt had this in the past and says it helped. Continue Robitussin and Mucinex scheduled. Change to po steroids. (4) Cor pulmonale Assessment/Plan: Continue gentle diuresis. Watch K and Mg, BUN/creat. check labs for today. She has severe, severe pulmonary HTN on ECHO 01/30: LVEF if 70-75%, mod TR, she has RV dysfunction, and PAP is 60 mmg hg. She is getting outpt workup with pulmonology and cardiology. Qualifiers: Diarrhea type: unspecified type Qualified Code(s): R19.7 - Diarrhea, unspecified
[2018-02-04] MEDS: AZITHROMYCIN INJ 250 MG in SODIUM CHLORIDE 0.9% 250 ML IV SCH (13:12)
[2018-02-04] MEDS: AMOXICILLIN 250 MG CAPSULE PO SCH ×2 (13:24→21:26)
[2018-02-04] MEDS: CHOLESTYRAMINE 4 GM PACKET PO SCH (13:25)
[2018-02-04] MEDS: ATORVASTATIN 10 MG TABLET PO SCH (21:26)
[2018-02-04] MEDS: traZODone 50 MG TABLET PO SCH (21:26)
[2018-02-05] MEDS: guaiFENesin/CODEINE 5 ML UDC PO SCH ×3 (00:36→13:21)
[2018-02-05] MEDS: LOPERAMIDE 2 MG CAPSULE PO PRN ×2 (00:41→04:08)
[2018-02-05] MEDS: DIPHENOX/ATROPINE 2.5/0.025 MG TABLET PO PRN ×2 (00:41→09:30)
[2018-02-05] MEDS: SODIUM CHLORIDE FLUSH 0.9% 10 ML SYRINGE IVP SCH ×2 (00:59→09:35)
[2018-02-05] MEDS: PANTOPRAZOLE 40 MG TABLET PO SCH ×2 (06:13→06:14)
[2018-02-05] MEDS: oxyCODONE ER 10 MG TABLET PO SCH ×2 (06:13→13:21)
[2018-02-05] MEDS: AMOXICILLIN 250 MG CAPSULE PO SCH (06:13)
[2018-02-05] MEDS: IPRATROPIUM/ALBUTEROL 3 ML NEB INH SCH ×2 (07:25→11:32)
[2018-02-05] MEDS: FORMOTEROL FUMARATE NEB 20 MCG/2 ML INH SCH (07:25)
[2018-02-05] MEDS: BUDESONIDE 0.5 MG/2 ML NEB INH SCH (07:25)
--- NOTE | 2018-02-05 08:18 | Discharge Plan ---
Discharge Plan Disposition: Home Health Service Condition: Stable Prescriptions: guaiFENesin/CODEINE [Robitussin AC] 5 ml PO Q6HR #120 udc Diphenoxylate/Atropine [Lomotil] 1 tab PO TID PRN #30 tablet PRN Reason: Diarrhea Diet: Regular Activity Restrictions: Activity as Tolerated Shower Restrictions: No Driving Restrictions: No Additional Instructions or Follow Up instructions: You were admitted to the hospital because of increasing respiratory effort for several weeks. You were requiring more more oxygen but it was not helping you breathe anymore. When you came to the emergency room, you were found to have new bilateral pneumonia and it was causing you to be very short of breath and worsened your COPD, pulmonary hypertension, and gave you severe right-sided heart failure. It has been a long slow improvement progress for you. Unfortunately, you have had quite a bit of diarrhea secondary to the medications. We think it is from the antibiotics. Sometimes you get something called Clostridium difficile colitis secondary to the antibiotics. But your stool has been negative. Continue taking a probiotic to help that. You have completed 7 days of antibiotics today. You do not need any more antibiotics at home. For your diarrhea take the Lomotil, Kaopectate, and fiber on a regular basis. This will help slow down your transit time in your bowel. Make sure you drink plenty of fluids when you have a loose bowel movement. I would suggest half a glass to a glass of water that is 8 ounces for each bowel movement. While on the one hand you want to drink plenty of fluids, and not get dehydrated, you do not want to drink too much that it exacerbates your right -sided heart failure from pulmonary hypertension. Please see your primary care provider, Edyta Newsome in the next week. I have asked for a Home Health RN to start seeing you at your residence to examine your lungs and make sure that your weight is staying stable, lung exam is staying stable and you are not getting too dehydrated. Please also see your disability case manager in follow-up. No Smoking: If you smoke, Please STOP! Call for help. Follow-up with: Edyta Newsome MD [Primary Care Provider] -
[2018-02-05] MEDS ORDERED: AZITHROMYCIN 250 MG TABLET PO SCH (09:00)
[2018-02-05] MEDS: CHOLESTYRAMINE 4 GM PACKET PO SCH (09:29)
[2018-02-05] MEDS: FUROSEMIDE 40 MG TABLET PO SCH (09:29)
[2018-02-05] MEDS: SACCHAROMYCES BOULARDII 250 MG CAPSULE PO SCH ×2 (09:29→09:36)
[2018-02-05] MEDS: SPIRONOLACTONE 25 MG TABLET PO SCH (09:30)
[2018-02-05] MEDS: MAGNESIUM OXIDE 400 MG TABLET PO SCH (09:30)
[2018-02-05] MEDS: MULTIVITAMIN TABLET PO SCH (09:30)
[2018-02-05] MEDS: ESCITALOPRAM 10 MG TABLET PO SCH (09:30)
[2018-02-05] MEDS: guaiFENesin 600 MG TABLET PO SCH (09:30)
[2018-02-05 09:31] VITALS: BP 124/83
[2018-02-05] MEDS: POLYETHYLENE GLYCOL 3350 17 GM PACKET PO SCH (09:35)
[2018-02-05] MEDS: DICLOFENAC PO SCH (09:35)
[2018-02-05] MEDS: MISOPROSTOL PO SCH (09:35)
[2018-02-05] MEDS ORDERED: POTASSIUM CHLORIDE 20 MEQ TABLET PO ONE (12:55)
--- NOTE | 2018-02-06 13:58 | DISCHARGE SUMMARY ---
Physician: Juli Christiansen MD DATE OF ADMISSION: 01/30/2018 DATE OF DISCHARGE: 02/05/2018 DISCHARGE DIAGNOSES 1. Acute respiratory failure with hypoxia. 2. Bilateral pneumonia. 3. Chronic obstructive pulmonary disease exacerbation. 4. Acute right-sided heart failure. 5. Severe pulmonary hypertension. 6. Diarrhea, Clostridium difficile negative. 7. Chronic pain syndrome. DISCHARGE MEDICATIONS 1. Guaifenesin with codeine 5 mL every 6 hours as needed for cough and sputum. 2. Two Tylenol 650 mg every 8 hours as needed for pain, fever, headache. 3. ProAir HFA inhaler 2 puffs every 4 hours as needed. 4. Vitamin D 2000 units daily. 5. Diclofenac with misoprostol 1 tablet daily. 6. Benadryl 25-50 mg p.o. q. p.m. p.r.n. 7. Diphenoxylate with atropine 1 tablet every 3 hours p.r.n. 8. Lomotil 1 tablet p.o. t.i.d. p.r.n. diarrhea. 9. Lexapro 10 mg daily. 10. Lasix 40 mg daily. 11. Ipratropium bromide 2 sprays nasally daily. 12. DuoNeb via inhalation every 4 hours as needed. 13. Lidoderm patch topically daily. 14. Lovastatin 40 mg p.o. q. p.m. 15. Magnesium oxide 400 mg p.o. b.i.d. 16. Mometasone with formoterol 2 puff inhalation b.i.d. 17. Theragran 1 tablet daily. 18. Omeprazole 40 mg daily. 19. OxyContin 10 mg p.o. t.i.d. 20. K-Dur 20 mEq p.o. b.i.d. 21. Florastor 250 mg p.o. daily. 22. Trazodone 50 mg p.o. q. p.m. 23. Kenalog 0.1% cream apply topically to itching areas b.i.d. as needed. PRINCIPAL PROCEDURES 1. Echocardiogram showed overall systolic function normal with an ejection fraction of 70%-75%. Right ventricular systolic function moderately impaired. Moderate tricuspid regurgitation. Severely abnormal heart pressures with pulmonary artery pressure at 60 mmHg. In comparison to her previous echo, which was in the 150s of mmHg, this is an improvement. 2. Chest x-ray with emphysema and stable pleural and parenchymal changes at the left apex. Patchy areas of infiltrate bilaterally. 3. Blood cultures negative after 5 days. 4. C difficile by PCR of stool, negative. HOSPITAL COURSE: The patient is a 77-year-old female who lives in her own home and that is at [facility]. She says that she has a long history of right -sided heart failure, severe lung disease, and she was getting weaker and more tired. She had to move in to get help. She is being followed by pulmonology. She is being considered for a medication to help with her pulmonary hypertension, but he is having to get authorization in advance. Over the last several weeks, she has been having increasing dyspnea with exertion to the point that now she is dyspneic at rest. She wears 4.5 liters at home on a regular basis and that was ineffective at managing her shortness of breath. She denies fever or chills. No hemoptysis. The shortness of breath is associated with a spasmodic cough that is killing her ribcage, and wheezing. She was evaluated by the aides at the [facility], but she did not want to come in for evaluation. As the evening got worse, she became more short of breath and EMS was called. When EMS arrived, she was saturating in the high 70s on room air. She was then treated with DuoNeb en route and that improved some of her symptoms. She was evaluated by emergency room physician, where she was in acute respiratory failure with tachypnea into the 30s, tachycardia at 112, afebrile, 83% saturated on 5 liters. In the ER, record sheet described as struggling to breathe with pursed lip breathing, labored, accessory muscle being used, retractions present with wheezing and rhonchi. Her chest x- ray shows bilateral infiltrates that may be pneumonia. The patient was treated as acute respiratory failure with hypoxia and bilateral pneumonia in the face of known pulmonary hypertension and right-sided heart failure. As such , she was treated with empiric antibiotics, diuretics, steroids. She also received nebulizers quite aggressively. Steroids were ramped up when she initially did not respond to the initial oral dose. She was then changed to IV, and then those IV doses were increased as well. Repeat echo was done to evaluate her right-sided heart failure and, while pulmonary hypertension is present and severe, it is improved from previous echo seen in our medical records. Unfortunately, she developed severe diarrhea with the treatment with all of these medications. She was C. difficile negative. In spite of Lomotil, Questran, and fiber, she was unable to slow it down. She was up to having 6 bowel movements a day. No blood. No emesis. Chronic pain was present and of longstanding duration. She says between her lungs and her chronic back pain, she is relatively immobile and spends a lot of time in her room. Her usual pain medications were continued while here. It took quite a bit of time, but she eventually turned the corner with regards to being able to get up out of bed and ambulate to the bathroom without severe tachypnea and respiratory distress. Over the last 2 days, she continued to cough, unable to bring up phlegm, which was distressing to her, but no real liner roll changer all other than she was able to now eat, and ambulate in the room without gasping for air. On the day of discharge, temperature was 36.4, pulse was 80, blood pressure 124/83, respirations were 16 at rest and 22 with exertion. She was saturating 97% with 2 liters nasal cannula. She is a slender, dark haired, elderly female who looks younger than stated age. I have asked her to please follow up with her primary care provider, Edyta Newsome, and to please follow up with her shuttler. Because she has limited mobility due to her back pain and her worsening pulmonary/cardiac status, I would like home health to evaluate her in her setting. She needs careful followup with careful lung exams to make sure she is not getting worse, or that her CHF is getting worse. Assess her lungs, JVD, and leg edema. She also has significant diarrhea that is still present. I would like to make sure she does not get dehydrated. She is stuck between a rock and a hard place, in that she needs to drink plenty of fluids, but not too much that she makes her right ventricular systolic failure worse. I have asked her to drink a small glass of water with each loose bowel movement to avoid getting dehydrated; continue to do fiber, magnesium oxide, and Lomotil p.r.n. On the day of discharge, temperature was 36.4, pulse was 80, blood pressure 124/83, respirations were 16 at rest and 22 with exertion. She was saturating 97% with 2 liters nasal cannula. She is a slender, dark haired, elderly female who looks younger than stated age. Her son was accompanying her. She had a severely nasal tone of voice, and she said the oxygen was just killing her sinuses this time. Back of throat was without erythema but did have postnasal drip. Shotty adenopathy of the neck. Coarse rhonchi that would intermittently clear with a deep spasmodic cough. The cough was nonproductive and driving her crazy, but on the day of discharge, the cough had previously been nonstop and unremitting was now only occasional. There is no use of accessory muscles. No rib cage retraction. She was able to sit up on the side of the bed and converse normally with me and her son. She had a regular rate and rhythm with a hard- knocking right ventricular lift. The abdomen was benign. The feet initially had had edema on admission, and she readily acknowledged that they were much skinnier and there was no edema at discharge. Greater than 30 minutes was spent in coordinating discharge for this patient. cc: Edyta Newsome MD TD: 02/05/2018 22:10 [facility]ITALCit[facility]
== END 2018-02-05 13:35 | disposition home health service (06) | DRG 193 ==
LOC: EDUNIT# → ED 02:39 → MS2 04:51
PROVIDERS: ADMIT Hospitalist; ATTEND Specialist
DX: J44.9 Chronic obstructive pulmonary disease, unspecified (principal); J18.9 Pneumonia, unspecified organism; I50.9 Heart failure, unspecified; J96.01 Acute respiratory failure with hypoxia; I50.21 Acute systolic (congestive) heart failure; I26.09 Other pulmonary embolism with acute cor pulmonale; J44.0 Chronic obstructive pulmonary disease with (acute) lower respiratory infection; J44.1 Chronic obstructive pulmonary disease with (acute) exacerbation; K52.1 Toxic gastroenteritis and colitis; I50.811 Acute right heart failure; I07.1 Rheumatic tricuspid insufficiency; G89.4 Chronic pain syndrome; M54.9 Dorsalgia, unspecified; T36.95XA Adverse effect of unspecified systemic antibiotic, initial encounter; Y92.230 Patient room in hospital as the place of occurrence of the external cause; K21.9 Gastro-esophageal reflux disease without esophagitis; M19.90 Unspecified osteoarthritis, unspecified site; E78.00 Pure hypercholesterolemia, unspecified; Z66 Do not resuscitate; Z79.51 Long term (current) use of inhaled steroids; Z79.891 Long term (current) use of opiate analgesic; Z79.899 Other long term (current) drug therapy; Z87.01 Personal history of pneumonia (recurrent)
CPT/HCPCS: 36415; 71046; 80048; 80053; 83690; 83735; 83880; 84132; 84484; 85025; 87040; 87493; 93005; 93308; 94640; 94667; 94668; 96365; 96375; 99284; 99285

== ENCOUNTER 2018-02-10 10:09 | Outpatient (CLI) | payer MEDICARE, OTHER ==
--- NOTE | 2018-02-10 11:17 | Ultrasound Report ---
RIGHT UPPER QUADRANT ULTRASOUND: 02/10/2018 COMPARISON: No comparison. TECHNIQUE: Real-time scanning was performed with [employer] static images of the right upper quadrant obtained. FINDINGS: The liver appears slightly coarse but otherwise normal in size, echogenicity and contour. No masses are seen. The gallbladder appears unremarkable, apart from a 2 mm polyp. The common duct is dilated measuring up to 1.4 cm with a stone versus a sludge ball in the distal common duct. The pancreas is not well evaluated. There is a simple appearing cyst in the right kidney. The kidney appears otherwise unremarkable. IMPRESSION: BILIARY OBSTRUCTION CAUSED BY A STONE OR SLUDGE BALL IN THE COMMON BILE DUCT. TD: 02/10/2018 11:16 [facility]
== END 2018-02-10 10:10 | disposition home or self-care (01) ==
LOC: DI 10:09
PROVIDERS: ATTEND Internal Medicine Pulmonary Disease
DX: K83.1 Obstruction of bile duct (principal)
CPT/HCPCS: 76705

== ENCOUNTER 2018-02-13 16:59 | Emergency (ER) | payer MEDICARE, OTHER ==
--- NOTE | 2018-02-13 17:42 | ED Physician Documentation ---
PD HPI CHEST PAIN - Stated complaint Stated Complaint: CHEST PX/JAW PX - Chief complaint Chief Complaint: Cardiac - History obtained from History obtained from: Patient - History of Present Illness Timing - onset: Other (77-year-old woman with history of CHF and COPD on chronic oxygen had a 15 minute episode of chest pain after eating a heavy lunch. It was a pressure that started in the left jaw the radiating down in the left shoulder. It is gone now. It was not associated with increased shortness of breath, pedal edema. She had a coronary angiogram she says in December at [facility]. We will try to get the records of that. There was no intervention done though. She does not have coronary disease that she knows of. ) Review of Systems Constitutional: denies: Fever, Chills Cardiac: reports: Chest pain / pressure. denies: Palpitations, Pedal edema, Calf pain Respiratory: reports: Dyspnea (chronic, unchanged) PD PAST MEDICAL HISTORY - Past Medical History Past Medical History: Yes Cardiovascular: Congestive heart failure, High cholesterol Respiratory: COPD, Pneumonia, Shortness of breath, Other Neuro: None Endocrine/Autoimmune: None GI: GERD : None HEENT: None Psych: None Musculoskeletal: Osteoarthritis, Other Derm: None - Past Surgical History Past Surgical History: Yes General: 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 /[employer]: Hysterectomy HEENT: Cataracts - Present Medications Home Medications: Ambulatory Orders Medication Instructions Recorded Confirmed Cholecalciferol (Vitamin D3) 2,000 units PO DAILY 02/04/17 01/30/18 [Vitamin D3] Diclofenac Sodium/Misoprostol 1 tab PO DAILY 02/04/17 01/30/18 [Diclofenac-Misoprost 50-200 Tb] Ipratropium/Albuterol [Duoneb] 3 ml INH Q4H PRN 02/04/17 01/30/18 Lovastatin 40 mg PO QPM 02/04/17 01/30/18 Mometasone/Formoterol [Dulera 100 2 puffs INH BID 02/04/17 01/30/18 Mcg/5 Mcg Inhaler] Trazodone HCl 50 mg PO QPM 02/04/17 01/30/18 diphenhydrAMINE [Benadryl] 25 - 50 mg PO QPM PRN 02/04/17 01/30/18 Escitalopram [Lexapro] 10 mg PO DAILY 02/19/17 01/30/18 oxyCODONE ER [OxyCONTIN] 10 mg PO TID 02/27/17 01/30/18 Albuterol Sulfate [Proair Hfa 2 puffs INH Q4H PRN 09/29/17 01/30/18 Inhaler] Diphenoxylate HCl/Atropine 1 tab PO Q3H PRN 09/29/17 01/30/18 [Diphenoxylat-Atrop 2.5-0.025/5] Loperamide [Imodium] 2 - 4 mg PO PRN PRN 09/29/17 01/30/18 Potassium Chloride [K-Dur] 20 meq PO BIDWM #60 tablet 10/05/17 01/30/18 Acetaminophen [Tylenol] 650 mg PO Q8H PRN 01/30/18 01/30/18 Furosemide 40 mg PO DAILY 01/30/18 01/30/18 Ipratropium [place] 2 sprays OMID Q8H PRN 01/30/18 01/30/18 Lidocaine Patch 5% [Lidoderm Patch] 1 each TOP DAILY PRN 01/30/18 01/30/18 Multivitamin [Theragran] 1 each PO DAILY 01/30/18 01/30/18 Omeprazole 40 mg PO QDAC 01/30/18 01/30/18 Saccharomyces Boulardii [Florastor] 250 mg PO DAILYWM 01/30/18 01/30/18 Triamcinolone 0.1% Cream [Kenalog 1 applic TOP BID 01/30/18 01/30/18 0.1% Cream] Diphenoxylate/Atropine [Lomotil] 1 tab PO TID PRN #30 tablet 02/05/18 Magnesium Oxide [Mag Ox] 400 mg PO BIDWM tablet 02/05/18 guaiFENesin/CODEINE [Robitussin AC] 5 ml PO Q6HR #120 udc 02/05/18 Diclofenac Sodium/Misoprostol 02/13/18 [Arthrotec 50 mg-200 Mcg Tab] - Allergies Allergies/Adverse Reactions: Allergies Allergy/AdvReac Type Severity Reaction Status Date / Time Sulfa (Sulfonamide Allergy Mild Rash Verified 02/13/18 17:24 Antibiotics) - Social History Does the pt smoke?: No Smoking Status: Never smoker Does the pt drink ETOH?: No Does the pt have substance abuse?: No - Immunizations Immunizations are current?: Yes - POLST Patient has POLST: No POLST Status: DNR PD ED PE NORMAL - Vitals Vital signs reviewed: Yes - General General: Alert and oriented X 3, No acute distress - HEENT HEENT: PERRL, EOMI - Neck Neck: Supple, no meningeal sign, No bony TTP - Cardiac Cardiac: RRR, No murmur - Respiratory Respiratory: No respiratory distress, Other (Rhonchorous especially at the right base and diminished there are 2.) - Abdomen Abdomen: Non tender - Extremities Extremities: No edema, No calf tenderness / cord - Neuro Neuro: Alert and oriented X 3, Normal speech - Psych Psych: Normal mood, Normal affect Results - Vitals Vitals: Vital Signs - 24 hr 02/13/18 17:09 Temperature 36.7 C Heart Rate 94 Respiratory 24 Rate Blood Pressure 106/48 L O2 Saturation 91 L Oxygen O2 Source Nasal cannula - Labs Labs: Laboratory Tests 02/13/18 02/13/18 02/13/18 17:55 17:55 17:55 WBC 11.1 H RBC 4.11 L Hgb 11.5 L Hct 35.6 L MCV 86.7 MCH 27.9 MCHC 32.2 RDW 16.4 H Plt Count 257 MPV 7.1 L Neut # 8.7 H Lymph # 1.4 L [place] # 0.9 Eos # 0.0 Baso # 0.1 Absolute Nucleated RBC 0.00 Nucleated RBC % 0.0 Sodium 134 L Potassium 4.5 Chloride 97 L Carbon Dioxide 28 Anion Gap 9.0 BUN 20 Creatinine 1.1 H Estimated GFR (MDRD) 48 L Glucose 88 Calcium 8.6 Total Bilirubin 0.6 AST 29 ALT 27 Alkaline Phosphatase 58 Troponin I < 0.04 Total Protein 6.7 Albumin 3.7 Globulin 3.0 Albumin/Globulin Ratio 1.2 Lipase 14 L PD MEDICAL DECISION MAKING - ED course ED course: She had rest pain earlier in the day. Her EKG here is unchanged from prior and biomarkers are negative. We did obtain records from [facility] because she had a recent coronary angiogram I thought, however it turned out to be a right heart cath. As such close follow-up with her it application architect was advised given that she may well have coronary disease but she has a lot of other underlying comorbidities which make her treatment difficult. She has been pain-free for several hours here so I think she is stable for discharge. Departure - Departure Disposition: 01 Home, Self Care Clinical Impression: Chest pain Qualifiers: Chest pain type: unspecified Qualified Code(s): R07.9 - Chest pain, unspecified Condition: Good Record reviewed to determine appropriate education?: Yes Instructions: ED Chest Pain Atypical Unkn Cause Comments: Call your it application architect tomorrow to arrange follow-up given the chest pain episode he had earlier in the day. Let him know that here you had an EKG that was unchanged from prior but she were pain-free at the time and you had negative biomarkers. Call 911 for recurrent episodes of chest pain.
[2018-02-13] MEDS ORDERED: ASPIRIN CHEW 81 MG TABLET PO STA (17:43)
[2018-02-13 18:06] LABS: BASOPHILS # (AUTO) 0.1 10^3/uL (0.0-0.1); BASOPHILS % (AUTO) 0.7 %; EOSINOPHILS % (AUTO) 0.3 %; HGB - HEMOGLOBIN 11.5 g/dL (12.0-16.0); LYMPHOCYTES # (AUTO) 1.4 10^3/uL (1.5-3.5); LYMPHOCYTES % (AUTO) 12.3 %; MEAN CORPUSCULAR HEMOGLOBIN 27.9 pg (27.0-31.0); MEAN CORPUSCULAR HGB CONC 32.2 g/dL (32.0-36.0); MEAN CORPUSCULAR VOLUME 86.7 fL (81.0-99.0); MEAN PLATELET VOLUME 7.1 fL (7.9-10.8); MONOCYTES # (AUTO) 0.9 10^3/uL (0.0-1.0); MONOCYTES % (AUTO) 7.9 %; NEUTROPHILS # (AUTO) 8.7 10^3/uL (1.5-6.6); NEUTROPHILS % (AUTO) 78.8 %; PLT - PLATELET COUNT 257 10^3/uL (130-450); RED BLOOD COUNT 4.11 10^6/uL (4.20-5.40); RED CELL DISTRIBUTION WIDTH 16.4 % (12.0-15.0); WHITE BLOOD COUNT 11.1 x10^3/uL (4.8-10.8)
--- NOTE | 2018-02-13 18:16 | XRAY Preliminary Report ---
Exam: XR CHEST 2 VIEW X-RAY IMPRESSION: Chronic changes at the lung apices, no acute cardiopulmonary process. [facility] SITE ID: [id number]
--- NOTE | 2018-02-13 18:16 | XRAY Report ---
EXAM: CHEST RADIOGRAPHY EXAM DATE: 02/13/2018 06:01 PM. CLINICAL HISTORY: Chest pain . COMPARISON: 01/30/2018 chest x-ray. TECHNIQUE: 2 views. FINDINGS: Lungs/Pleura: Chronic biapical fibrotic changes. Normal lung volumes. No acute airspace consolidation . No pleural effusion or pneumothorax. Mediastinum: Heart and mediastinal contours are unremarkable. Other: None. IMPRESSION: Chronic changes at the lung apices, no acute cardiopulmonary process. [facility] Referring Provider Line: [phone] SITE ID: [id number]
[2018-02-13 18:19] LABS: ALBUMIN 3.7 g/dL (3.2-5.5); ALBUMIN/GLOBULIN RATIO 1.2 (1.0-2.2); BILIRUBIN,TOTAL 0.6 mg/dL (0.2-1.0); CALCIUM 8.6 mg/dL (8.5-10.3); CREATININE 1.1 mg/dL (0.4-1.0); TOTAL PROTEIN 6.7 g/dL (6.7-8.2)
[2018-02-13 20:02] VITALS: BP 117/63
== END 2018-02-13 20:01 | disposition home or self-care (01) ==
LOC: ED 16:59
DX: R07.9 Chest pain, unspecified (principal); I50.9 Heart failure, unspecified; J44.9 Chronic obstructive pulmonary disease, unspecified; Z99.81 Dependence on supplemental oxygen; K21.9 Gastro-esophageal reflux disease without esophagitis; M19.90 Unspecified osteoarthritis, unspecified site
CPT/HCPCS: 36415; 71046; 80053; 83690; 84484; 85025; 93005; 99283; A9270

== ENCOUNTER 2018-02-16 12:58 | Outpatient (CLI) | payer MEDICARE, OTHER | END 2018-02-16 12:59 | disposition critical access hospital (66) | LOC: EMS 12:58 | PROVIDERS: ATTEND Surgery | DX: R21 Rash and other nonspecific skin eruption (principal) | CPT/HCPCS: A0425; A0427 ==

== ENCOUNTER 2018-02-16 13:16 | Emergency (ER) | payer MEDICARE, OTHER ==
--- NOTE | 2018-02-16 13:51 | ED Physician Documentation ---
History of Present Illness - Stated complaint Stated Complaint: RASH - Chief complaint Chief Complaint: Wound - History obtained from History obtained from: Patient, EMS - History of Present Illness Timing: How many days ago (several) Pain level max: 0 Pain level now: 0 Improved by: benadryl. Worsened by: nothing - Additonal information Additional information: States started 3 days ago on her legs with an itchy rash and now has spread up onto her torso. Given benadryl with EMS and feels better now. Had some mild dyspnea, but resolved with her usual neb treatments. Review of Systems Constitutional: denies: Fever, Chills Ears: denies: Ear pain Nose: denies: Rhinorrhea / runny nose, Congestion Respiratory: denies: Cough GI: denies: Abdominal Pain, Nausea, Vomiting, Diarrhea Musculoskeletal: denies: Neck pain, Back pain Neurologic: denies: Headache PD PAST MEDICAL HISTORY - Past Medical History Cardiovascular: Congestive heart failure, High cholesterol Respiratory: COPD, Pneumonia, Shortness of breath, Other Neuro: None Endocrine/Autoimmune: None GI: GERD : None HEENT: None Psych: None Musculoskeletal: Osteoarthritis, Other Derm: None - Past Surgical History Past Surgical History: Yes General: 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 /[employer]PER[employer] SHAVING [employer] SPLITTING: Hysterectomy HEENT: Cataracts - Present Medications Home Medications: Ambulatory Orders Medication Instructions Recorded Confirmed Cholecalciferol (Vitamin D3) 2,000 units PO DAILY 02/04/17 01/30/18 [Vitamin D3] Diclofenac Sodium/Misoprostol 1 tab PO DAILY 02/04/17 01/30/18 [Diclofenac-Misoprost 50-200 Tb] Ipratropium/Albuterol [Duoneb] 3 ml INH Q4H PRN 02/04/17 01/30/18 Lovastatin 40 mg PO QPM 02/04/17 01/30/18 Mometasone/Formoterol [Dulera 100 2 puffs INH BID 02/04/17 01/30/18 Mcg/5 Mcg Inhaler] Trazodone HCl 50 mg PO QPM 02/04/17 01/30/18 diphenhydrAMINE [Benadryl] 25 - 50 mg PO QPM PRN 02/04/17 01/30/18 Escitalopram [Lexapro] 10 mg PO DAILY 02/19/17 01/30/18 oxyCODONE ER [OxyCONTIN] 10 mg PO TID 02/27/17 01/30/18 Albuterol Sulfate [Proair Hfa 2 puffs INH Q4H PRN 09/29/17 01/30/18 Inhaler] Diphenoxylate HCl/Atropine 1 tab PO Q3H PRN 09/29/17 01/30/18 [Diphenoxylat-Atrop 2.5-0.025/5] Loperamide [Imodium] 2 - 4 mg PO PRN PRN 09/29/17 01/30/18 Potassium Chloride [K-Dur] 20 meq PO BIDWM #60 tablet 10/05/17 01/30/18 Acetaminophen [Tylenol] 650 mg PO Q8H PRN 01/30/18 01/30/18 Furosemide 40 mg PO DAILY 01/30/18 01/30/18 Ipratropium [place] 2 sprays OMID Q8H PRN 01/30/18 01/30/18 Lidocaine Patch 5% [Lidoderm Patch] 1 each TOP DAILY PRN 01/30/18 01/30/18 Multivitamin [Theragran] 1 each PO DAILY 01/30/18 01/30/18 Omeprazole 40 mg PO QDAC 01/30/18 01/30/18 Saccharomyces Boulardii [Florastor] 250 mg PO DAILYWM 01/30/18 01/30/18 Triamcinolone 0.1% Cream [Kenalog 1 applic TOP BID 01/30/18 01/30/18 0.1% Cream] Diphenoxylate/Atropine [Lomotil] 1 tab PO TID PRN #30 tablet 02/05/18 Magnesium Oxide [Mag Ox] 400 mg PO BIDWM tablet 02/05/18 guaiFENesin/CODEINE [Robitussin AC] 5 ml PO Q6HR #120 udc 02/05/18 Diclofenac Sodium/Misoprostol 02/13/18 [Arthrotec 50 mg-200 Mcg Tab] predniSONE [Prednisone] 20 mg PO DAILY #5 tablet 02/16/18 - Allergies Allergies/Adverse Reactions: Allergies Allergy/AdvReac Type Severity Reaction Status Date / Time Sulfa (Sulfonamide Allergy Mild Rash Verified 02/16/18 13:27 Antibiotics) - Social History Does the pt smoke?: No Smoking Status: Never smoker Does the pt drink ETOH?: No Does the pt have substance abuse?: No - Immunizations Immunizations are current?: Yes - POLST Patient has POLST: No POLST Status: DNR PD ED PE NORMAL - Vitals Vital signs reviewed: Yes - General General: Alert and oriented X 3, No acute distress - HEENT HEENT: Moist mucous membranes - Neck Neck: Supple, no meningeal sign - Cardiac Cardiac: RRR, Strong equal pulses - Respiratory Respiratory: No respiratory distress, Clear bilaterally - Abdomen Abdomen: Soft, Non tender, Non distended - Derm Derm: Warm and dry - Extremities Extremities: Other (diffuse urticaria on the B LE, and lower abdomen. ) - Neuro Neuro: Alert and oriented X 3 - Psych Psych: Normal mood, Normal affect Results - Vitals Vitals: Vital Signs - 24 hr 02/16/18 02/16/18 13:23 14:51 Temperature 37.0 C Heart Rate 75 81 Respiratory 16 22 Rate Blood Pressure 127/60 124/59 L O2 Saturation 100 97 Oxygen O2 Source Room air PD MEDICAL DECISION MAKING - ED course Complexity details: reviewed old records, re-evaluated patient, considered differential, d/w patient ED course: Patient is a 77-year-old female who presents to the emergency department with urticaria of unclear etiology. They are very pruritic. Given Benadryl for the itching. Will also place him a short course of steroids and see how she progresses. She is well-appearing, nontoxic. Afebrile. No evidence of infection. Patient counseled regarding signs and symptoms for which I believe and urgent re-evaluation would be necessary. Patient with good understanding of and agreement to plan and is comfortable going home at this time This document was made in part using voice recognition software. While efforts are made to proofread this document, sound alike and grammatical errors may occur. Departure - Departure Disposition: 01 Home, Self Care Clinical Impression: Urticaria Condition: Good Instructions: ED Urticaria Follow-Up: Edyta Newsome MD [Primary Care Provider] - Within 3 Days (for recheck) Prescriptions: predniSONE [Prednisone] 20 mg PO DAILY #5 tablet Comments: The cause of your symptoms is unclear today. Return if you worsen. Discharge Date/Time: 02/16/18 16:34
[2018-02-16] MEDS ORDERED: predniSONE 20 MG TABLET PO STA (14:17)
[2018-02-16 14:52] VITALS: BP 124/59
[2018-02-16] MEDS ORDERED: diphenhydrAMINE 25 MG CAPSULE PO STA (15:12)
== END 2018-02-16 16:34 | disposition home or self-care (01) ==
LOC: EDUNIT# → ED 13:16
DX: L50.9 Urticaria, unspecified (principal)
CPT/HCPCS: 99283; A9270; J7512

== ENCOUNTER 2018-04-15 14:34 | Outpatient (CLI) | payer MEDICARE, OTHER ==
--- NOTE | 2018-04-16 09:05 | XRAY Report ---
COMPLETE LUMBAR SPINE: 04/15/2018 CLINICAL INDICATION: Chronic back pain. COMPARISON: MRI 08/14/2016. FINDINGS: AP, lateral, oblique, cone down views of the lumbar spine demonstrate stable degenerative disk and facet disease, with degenerative levoscoliosis. No compression fracture is identified. The bowel gas pattern is unremarkable. Vascular calcifications are seen. IMPRESSION: STABLE DEGENERATIVE CHANGES, WITH DEGENERATIVE LEVOSCOLIOSIS. TD: 04/16/2018 09:00
== END 2018-04-15 14:35 | disposition home or self-care (01) ==
LOC: DI.N 14:34
PROVIDERS: ATTEND Family Medicine
DX: M54.89 Other dorsalgia (principal); M41.86 Other forms of scoliosis, lumbar region
CPT/HCPCS: 72110

== ENCOUNTER 2018-07-29 12:42 | Outpatient (CLI) | payer MEDICARE, OTHER ==
--- NOTE | 2018-07-30 20:59 | MRI Report ---
Reason: LOW BACK PAIN Procedure Date: 07/29/2018 Accession Number: [id number] / [id number] Procedure: MRI - Lumbar Spine W/O CPT Code: FULL RESULT: EXAM: MRI LUMBAR SPINE WITHOUT CONTRAST EXAM DATE: 07/29/2018 01:19 PM. CLINICAL HISTORY: Low back pain. COMPARISON: MR of the lumbar spine without contrast 08/14/2016. TECHNIQUE: Multiplanar, multisequence T1-weighted and fluid-sensitive sequences of the lumbar spine from T12 to S1 without contrast. Other: None. FINDINGS: There is a 46 degree levoscoliosis of the lumbar spine with the apex at L3. There is mild atrophy of the paraspinal musculature. There is a T2 hyperintense lesion of the superior pole the left kidney consistent with a simple appearing renal cyst. The kidneys are without evidence of hydronephrosis. The images are degraded by motion. The abdominal aorta is of normal caliber. There are multiple T2 hyperintense lesions posterior to S2 consistent with multiple perineural cysts. These were present on the previous exam. The conus terminates at the inferior endplate level of L1 and is normal. There are Schmorl's nodes within the endplates from T9 T10-L5 S1. There is desiccation of the disk spaces throughout the lumbar spine. There is a mixture of Modic type I and type II endplate degenerative change within the L1 L2-L5 S1 endplates. Axial images: T11-T12: There is a left paracentral extrusion of the disk with annular tear producing a mild central canal stenosis. There is mild left facet arthropathy. T12-L1: There is a left paracentral extrusion of the disk producing a mild central canal stenosis. There is mild to moderate right and mild left facet arthropathy. There is mild to moderate narrowing of the left neural foramen. The extrusion of the disk is a new finding. L1-L2: There is a broad-based disk osteophyte complex abutting the sac producing a mild central canal stenosis. There is mild left and mild to moderate right facet arthropathy. There is mild left neural foraminal narrowing. There is no significant change at this level. L2-L3: There is a broad-based disk osteophyte complex abutting the sac producing mild central canal stenosis. There is moderate right facet arthropathy. There is moderate narrowing of the right neural foramen. There is mild narrowing of the left neural foramen. There is no significant change at this level. L3-L4: There is a grade 1 anterolisthesis of L3 on L4. There is a small disk osteophyte complex abutting the sac producing a mild central canal stenosis. There is moderate to severe right facet arthropathy. There is mild to moderate left facet arthropathy. There is mild narrowing of the right neural foramen. L4-L5: There is a grade 1 anterolisthesis of L4 on L5. There is a broad-based disk osteophyte complex abutting the sac producing mild to moderate central canal stenosis. There is moderate to severe left and right facet arthropathy. There is mild right and left foraminal stenosis. There is moderate right and left foraminal stenosis. There is no significant change at this level. L5-S1: There is 1 mm retrolisthesis of L5 on S1. There is a small disk bulge abutting the sac but without significant central canal stenosis. There is minimal left facet arthropathy. There is mild narrowing of the left neural foramen. There is no significant change at this level. IMPRESSION: 1. There is a 46 degrees levoscoliosis of the lumbar spine with the apex at L3. 2. There are mild central canal stenoses at T11-T12 and T12-L1 from left paracentral extrusions of the disk, respectively. 3. There are mild central canal stenoses at L1-L2 and L2-L3 from broad-based disk osteophyte complexes. 4. There is an unchanged mild to moderate central canal stenosis at L4-L5 from a broad-based disk osteophyte complex. 5. There is and unchanged mild central canal stenosis at L3-L4 from a grade 1 anterolisthesis in combination with disk osteophyte complex. Comment: The following findings are so common in adults without low back pain that while we report their presence, they must be interpreted with caution and in the context of the clinical situation. (Reference Youngk et al, Spine 2001) Prevalence of findings in patients without low back pain: Disk degeneration (any evidence): 92% Disk desiccation/T2 signal loss: 83% Disk height loss: 56% Disk bulge: 64% Disk protrusion: 32% Annular tear/high intensity zone: 38% [facility]
== END 2018-07-29 12:43 | disposition home or self-care (01) ==
LOC: DI 12:42
PROVIDERS: ATTEND Acupuncturist
DX: M51.36 Other intervertebral disc degeneration, lumbar region (principal); M51.25 Other intervertebral disc displacement, thoracolumbar region; M51.24 Other intervertebral disc displacement, thoracic region; M47.896 Other spondylosis, lumbar region; M43.16 Spondylolisthesis, lumbar region; M48.061 Spinal stenosis, lumbar region without neurogenic claudication; M43.17 Spondylolisthesis, lumbosacral region; M47.897 Other spondylosis, lumbosacral region; M41.86 Other forms of scoliosis, lumbar region; M48.04 Spinal stenosis, thoracic region
CPT/HCPCS: 72148

== ENCOUNTER 2018-08-20 12:46 | Outpatient (CLI) | payer MEDICARE, OTHER | END 2018-08-20 12:47 | disposition critical access hospital (66) | LOC: EMS 12:46 | PROVIDERS: ATTEND Surgery | DX: R06.02 Shortness of breath (principal) | CPT/HCPCS: A0425; A0427 ==

== ENCOUNTER 2018-08-20 13:06 | Emergency (ER) | payer MEDICARE, OTHER ==
[2018-08-20 13:53] LABS: BASOPHILS # (AUTO) 0.1 10^3/uL (0.0-0.1); BASOPHILS % (AUTO) 1.2 %; EOSINOPHILS # (AUTO) 0.1 10^3/uL (0.0-0.7); EOSINOPHILS % (AUTO) 1.3 %; HGB - HEMOGLOBIN 9.2 g/dL (12.0-16.0); LYMPHOCYTES # (AUTO) 0.6 10^3/uL (1.5-3.5); LYMPHOCYTES % (AUTO) 6.4 %; MEAN CORPUSCULAR HEMOGLOBIN 23.1 pg (27.0-31.0); MEAN CORPUSCULAR HGB CONC 32.4 g/dL (32.0-36.0); MEAN CORPUSCULAR VOLUME 71.3 fL (81.0-99.0); MEAN PLATELET VOLUME 6.3 fL (7.9-10.8); MONOCYTES # (AUTO) 0.7 10^3/uL (0.0-1.0); MONOCYTES % (AUTO) 6.6 %; NEUTROPHILS # (AUTO) 8.3 10^3/uL (1.5-6.6); NEUTROPHILS % (AUTO) 84.5 %; PLT - PLATELET COUNT 215 10^3/uL (130-450); RED BLOOD COUNT 3.98 10^6/uL (4.20-5.40); RED CELL DISTRIBUTION WIDTH 20.3 % (12.0-15.0); WHITE BLOOD COUNT 9.8 x10^3/uL (4.8-10.8)
[2018-08-20 14:03] LABS: ALBUMIN 3.6 g/dL (3.2-5.5); ALBUMIN/GLOBULIN RATIO 1.3 (1.0-2.2); BILIRUBIN,TOTAL 0.6 mg/dL (0.2-1.0); CALCIUM 8.7 mg/dL (8.5-10.3); CREATININE 1.6 mg/dL (0.4-1.0); TOTAL PROTEIN 6.4 g/dL (6.7-8.2)
--- NOTE | 2018-08-20 14:42 | XRAY Report ---
Reason: soa Procedure Date: 08/20/2018 Accession Number: [id number] / [id number] Procedure: XR - Chest 2 View X-Ray CPT Code: 86801 FULL RESULT: EXAM: CHEST RADIOGRAPHY EXAM DATE: 08/20/2018 02:03 PM. CLINICAL HISTORY: Shortness of breath. Syncope. COMPARISON: CHEST 2 VIEW 02/13/2018 5:27 PM. TECHNIQUE: 2 views. FINDINGS: Lungs/Pleura: Lung volumes are high with flattening of diaphragms in keeping with obstructive lung disease. As previously seen, there is increase in interstitial markings which appears slightly more pronounced on today's exam. There is no lobar consolidation, sizable pleural effusion or pneumothorax. Mediastinum: The cardiomediastinal silhouette is stable. Other: None. IMPRESSION: Essentially stable radiograph. [facility]
--- NOTE | 2018-08-20 14:50 | ED Physician Documentation ---
History of Present Illness - Stated complaint Stated Complaint: COPD - Chief complaint Chief Complaint: Resp - Additonal information Additional information: 77-year-old female with a history of severe lung disease who is on chronic oxygen therapy presents to the emergency department for evaluation of shortness of breath and lightheadedness. 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 The patient denies chest pain, palpitations, fever, chills, cough or peripheral edema. The patient was given a breathing treatment by EMS and now feels back to her baseline. Symptoms are described as moderate. No other associated symptoms. No specific triggering factors Review of Systems Constitutional: denies: Fever Eyes: denies: Discharge Ears: denies: Ear pain Nose: denies: Congestion Throat: denies: Sore throat Cardiac: denies: Chest pain / pressure Respiratory: reports: Dyspnea, Wheezing GI: denies: Abdominal Pain : denies: Dysuria Skin: denies: Laceration (s) Musculoskeletal: denies: Neck pain Neurologic: reports: Generalized weakness. denies: Focal weakness, Headache PD PAST MEDICAL HISTORY - Past Medical History Cardiovascular: Congestive heart failure, High cholesterol Respiratory: COPD, Pneumonia, Shortness of breath, Other Endocrine/Autoimmune: None GI: GERD : None HEENT: None Psych: None Musculoskeletal: Osteoarthritis, Other Derm: None - Past Surgical History Past Surgical History: Yes General: 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 /GWOT [place]/[employer] SUPPORT: Hysterectomy HEENT: Cataracts - Present Medications Home Medications: Ambulatory Orders Medication Instructions Recorded Confirmed Cholecalciferol (Vitamin D3) 2,000 units PO DAILY 02/04/17 01/30/18 [Vitamin D3] Diclofenac Sodium/Misoprostol 1 tab PO DAILY 02/04/17 01/30/18 [Diclofenac-Misoprost 50-200 Tb] Ipratropium/Albuterol [Duoneb] 3 ml INH Q4H PRN 02/04/17 01/30/18 Lovastatin 40 mg PO QPM 02/04/17 01/30/18 Mometasone/Formoterol [Dulera 100 2 puffs INH BID 02/04/17 01/30/18 Mcg/5 Mcg Inhaler] Trazodone HCl 50 mg PO QPM 02/04/17 01/30/18 diphenhydrAMINE [Benadryl] 25 - 50 mg PO QPM PRN 02/04/17 01/30/18 Escitalopram [Lexapro] 10 mg PO DAILY 02/19/17 01/30/18 oxyCODONE ER [OxyCONTIN] 10 mg PO TID 02/27/17 01/30/18 Albuterol Sulfate [Proair Hfa 2 puffs INH Q4H PRN 09/29/17 01/30/18 Inhaler] Diphenoxylate HCl/Atropine 1 tab PO Q3H PRN 09/29/17 01/30/18 [Diphenoxylat-Atrop 2.5-0.025/5] Loperamide [Imodium] 2 - 4 mg PO PRN PRN 09/29/17 01/30/18 Potassium Chloride [K-Dur] 20 meq PO BIDWM #60 tablet 10/05/17 01/30/18 Acetaminophen [Tylenol] 650 mg PO Q8H PRN 01/30/18 01/30/18 Furosemide 40 mg PO DAILY 01/30/18 01/30/18 Ipratropium [place] 2 sprays OMID Q8H PRN 01/30/18 01/30/18 Lidocaine Patch 5% [Lidoderm Patch] 1 each TOP DAILY PRN 01/30/18 01/30/18 Multivitamin [Theragran] 1 each PO DAILY 01/30/18 01/30/18 Omeprazole 40 mg PO QDAC 01/30/18 01/30/18 Saccharomyces Boulardii [Florastor] 250 mg PO DAILYWM 01/30/18 01/30/18 Triamcinolone 0.1% Cream [Kenalog 1 applic TOP BID 01/30/18 01/30/18 0.1% Cream] Diphenoxylate/Atropine [Lomotil] 1 tab PO TID PRN #30 tablet 02/05/18 Magnesium Oxide [Mag Ox] 400 mg PO BIDWM tablet 02/05/18 guaiFENesin/CODEINE [Robitussin AC] 5 ml PO Q6HR #120 udc 02/05/18 Diclofenac Sodium/Misoprostol 02/13/18 [Arthrotec 50 mg-200 Mcg Tab] predniSONE [Prednisone] 20 mg PO DAILY #5 tablet 02/16/18 - Allergies Allergies/Adverse Reactions: Allergies Allergy/AdvReac Type Severity Reaction Status Date / Time Sulfa (Sulfonamide Allergy Mild Rash Verified 08/20/18 13:13 Antibiotics) - Social History Does the pt smoke?: No Smoking Status: Never smoker Does the pt drink ETOH?: No Does the pt have substance abuse?: No - Immunizations Immunizations are current?: Yes - POLST Patient has POLST: No POLST Status: DNR PD ED PE NORMAL - General General: Alert and oriented X 3, No acute distress, Other (77-year-old frail- appearing female who appears to be in no significant distress) - HEENT HEENT: Atraumatic, PERRL, EOMI - Neck Neck: No JVD - Cardiac Cardiac: RRR, Strong equal pulses - Respiratory Respiratory: No respiratory distress, Other (The patient has chronic bilateral rhonchorous sounds) - Derm Derm: Normal color - Extremities Extremities: No deformity, No edema - Neuro Neuro: Alert and oriented X 3, Normal speech - Psych Psych: Normal mood Results - Vitals Vitals: Vital Signs - 24 hr 08/20/18 08/20/18 13:08 14:42 Temperature 36.3 C L Heart Rate 72 72 Respiratory 16 22 Rate Blood Pressure 98/42 L 101/80 O2 Saturation 90 L 90 L Oxygen O2 Source Nasal cannula Oxygen Flow Rate 3 - EKG (time done) No standard instances Rhythm: NSR Intervals: RBBB Ischemia: Non specific changes Compare to prior EKG: Unchanged from prior EKG - Labs Labs: Laboratory Tests 08/20/18 08/20/18 08/20/18 13:32 13:32 13:32 WBC 9.8 RBC 3.98 L Hgb 9.2 L Hct 28.4 L MCV 71.3 L MCH 23.1 L MCHC 32.4 RDW 20.3 H Plt Count 215 MPV 6.3 L Neut # (Auto) 8.3 H Lymph # (Auto) 0.6 L [place] # (Auto) 0.7 Eos # (Auto) 0.1 Baso # (Auto) 0.1 Absolute Nucleated RBC 0.00 Nucleated RBC % 0.0 Sodium 132 L Potassium 4.8 Chloride 94 L Carbon Dioxide 27 Anion Gap 11.0 BUN 33 H Creatinine 1.6 H Estimated GFR (MDRD) 31 L Glucose 121 H Calcium 8.7 Total Bilirubin 0.6 AST 18 ALT 14 Alkaline Phosphatase 45 Troponin I < 0.04 B-Natriuretic Peptide Total Protein 6.4 L Albumin 3.6 Globulin 2.8 Albumin/Globulin Ratio 1.3 Lipase 20 L 08/20/18 13:32 WBC RBC Hgb Hct MCV MCH MCHC RDW Plt Count MPV Neut # (Auto) Lymph # (Auto) [place] # (Auto) Eos # (Auto) Baso # (Auto) Absolute Nucleated RBC Nucleated RBC % Sodium Potassium Chloride Carbon Dioxide Anion Gap BUN Creatinine Estimated GFR (MDRD) Glucose Calcium Total Bilirubin AST ALT Alkaline Phosphatase Troponin I B-Natriuretic Peptide 295 H Total Protein Albumin Globulin Albumin/Globulin Ratio Lipase - Rads (name of study) CXR Radiology: Final report received PD MEDICAL DECISION MAKING - ED course ED course: Since arriving in the emergency department the patient's been at her baseline, the patient's workup does not reveal any significant abnormality at this time. The patient is requesting discharge back to her facility. Presently there is no significant abnormality that would necessitate admission to the hospital. Since, the patient is requesting discharge I will discharge her back home. I did advise that she follow-up with her research physiologist for further evaluation. The patient understands and agrees. I discussed warning signs and recommended returning to the emergency department immediately for worsening or any concerns. - Sepsis Event Vital Signs: Vital Signs - 24 hr 08/20/18 08/20/18 13:08 14:42 Temperature 36.3 C L Heart Rate 72 72 Respiratory 16 22 Rate Blood Pressure 98/42 L 101/80 O2 Saturation 90 L 90 L Oxygen O2 Source Nasal cannula Oxygen Flow Rate 3 Departure - Departure Disposition: 01 Home, Self Care Clinical Impression: Lightheadedness Dyspnea Qualifiers: Dyspnea type: unspecified Qualified Code(s): R06.00 - Dyspnea, unspecified Condition: Good Instructions: ED Dyspnea Shortness of Breath Follow-Up: Edyta Newsome MD [Primary Care Provider] - Within 3 Days Comments: Please return to the ED for worsening symptoms or any concerns.
[2018-08-20 16:26] VITALS: BP 123/49
== END 2018-08-20 17:43 | disposition home or self-care (01) ==
LOC: ED 13:06
DX: R42 Dizziness and giddiness (principal); R06.00 Dyspnea, unspecified; J44.9 Chronic obstructive pulmonary disease, unspecified; E78.00 Pure hypercholesterolemia, unspecified
CPT/HCPCS: 36415; 71046; 80053; 83690; 83880; 84484; 85025; 93005; 99283; 99284

== ENCOUNTER 2018-09-29 08:54 | Outpatient (CLI) | payer MEDICARE, OTHER | END 2018-09-29 08:55 | disposition critical access hospital (66) | LOC: EMS 08:54 | PROVIDERS: ATTEND Surgery | DX: R06.02 Shortness of breath (principal) | CPT/HCPCS: A0425; A0427 ==

== ENCOUNTER 2018-09-29 08:55 | Inpatient (IN) | payer MEDICARE, OTHER ==
--- NOTE | 2018-09-29 08:59 | ED Physician Documentation ---
PD HPI DYSPNEA - Stated complaint Stated Complaint: RESP DISTRESS - History obtained from History obtained from: Patient, EMS - History of Present Illness Timing - onset: Today Timing - onset during: Rest Timing - duration: Hours Timing - details: Abrupt onset, Still present Inciting event(s): URI (some cough but no fevers.) Improved by: No: Inhaler/neb Worsened by: Exertion, Laying flat, Coughing Associated symptoms: Cough, Wheezing, Chest pain / discomfort (left side). No: Fever, Hemoptysis Similar symptoms before: Diagnosis (COPD and has been intubated in the past.) Recently seen: Emergency Dept (2 months ago just in ER and discharged with treatments. Hospitalized January 2018 for pneumonia and COPD.) Review of Systems Unable to obtain: Other (respiratory distress) Constitutional: denies: Fever Nose: reports: Congestion. 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 HEENT: Cataracts - Present Medications Home Medications: Ambulatory Orders Medication Instructions Recorded Confirmed RX: Cholecalciferol (Vitamin D3) 2,000 units PO DAILY 02/04/17 01/30/18 [Vitamin D3] RX: Ipratropium/Albuterol [Duoneb] 3 ml NEB Q4H PRN 02/04/17 01/30/18 RX: Lovastatin 40 mg PO QPM 02/04/17 01/30/18 RX: Mometasone/Formoterol [Dulera 2 puffs INH BID 02/04/17 01/30/18 100 Mcg/5 Mcg Inhaler] RX: Trazodone HCl 50 mg PO QPM 02/04/17 01/30/18 RX: diphenhydrAMINE [Benadryl] 25 - 50 mg PO QPM PRN 02/04/17 01/30/18 RX: Escitalopram [Lexapro] 10 mg PO DAILY 02/19/17 01/30/18 RX: oxyCODONE ER [OxyCONTIN] 10 mg PO Q8H MDD 30mg 02/27/17 01/30/18 RX: Albuterol Sulfate [Proair Hfa 2 puffs INH Q4H PRN 09/29/17 01/30/18 Inhaler] RX: Loperamide [Imodium] 2 - 4 mg PO PRN PRN 09/29/17 01/30/18 RX: Potassium Chloride [K-Dur] 20 meq PO BIDWM #60 tablet 10/05/17 01/30/18 RX: Acetaminophen [Tylenol] 650 mg PO Q8H PRN 01/30/18 01/30/18 RX: Furosemide 40 mg PO DAILY 01/30/18 01/30/18 RX: Ipratropium [place] 2 sprays OMID Q8H PRN 01/30/18 01/30/18 RX: Lidocaine Patch 5% [Lidoderm 1 each TOP DAILY PRN 01/30/18 01/30/18 Patch] RX: Multivitamin [Theragran] 1 each PO DAILY 01/30/18 01/30/18 RX: Omeprazole 40 mg PO QDAC 01/30/18 01/30/18 RX: Saccharomyces Boulardii 250 mg PO BIDWM 01/30/18 01/30/18 [Florastor] RX: Triamcinolone 0.1% Cream 1 applic TOP BID 01/30/18 01/30/18 [Kenalog 0.1% Cream] RX: Diphenoxylate/Atropine 1 tab PO TID PRN #30 tablet 02/05/18 [Lomotil] RX: Magnesium Oxide [Mag Ox] 400 mg PO BIDWM tablet 02/05/18 RX: guaiFENesin/CODEINE 5 ml PO Q6HR #120 udc 02/05/18 [Robitussin AC] Ambrisentan [Letairis] 10 mg PO DAILY 09/29/18 Diclofenac Sodium/Misoprostol 1 tab PO DAILY 09/29/18 [Diclofenac-Misoprost 50-200 Tb] Lovastatin 40 mg PO QPM 09/29/18 Omeprazole 40 mg PO DAILY 09/29/18 Oxycodone HCl 5 - 10 mg PO Q6H PRN MDD 30 mg 09/29/18 Sildenafil Citrate [Sildenafil] 20 mg PO TID 09/29/18 Spironolactone 25 mg PO DAILY 09/29/18 Tiotropium [place] [Spiriva 2 inh PO DAILY 09/29/18 Respimat] - Allergies Allergies/Adverse Reactions: Allergies Allergy/AdvReac Type Severity Reaction Status Date / Time Sulfa (Sulfonamide Allergy Mild Rash Verified 08/20/18 13:13 Antibiotics) - Social History Does the pt smoke?: No Smoking Status: Never smoker Does the pt drink ETOH?: No Does the pt have substance abuse?: No - Immunizations Immunizations are current?: Yes - POLST Patient has POLST: No POLST Status: DNR PD ED PE NORMAL - Vitals Vital signs reviewed: Yes - General General: Alert and oriented X 3, Well developed/nourished, Other (tachypnea and 1 word conversational dyspnea. Marked work of breathing. ) - HEENT HEENT: Pharynx benign - Neck Neck: Supple, no meningeal sign, No adenopathy - Cardiac Cardiac: RRR, No murmur, No rub - Respiratory Respiratory: No: Clear bilaterally (decreased on left; diffuse wheezing. ) - Abdomen Abdomen: Soft, Non tender - Rectal Rectal: Deferred - Back Back: No CVA TTP - Derm Derm: Normal color - Extremities Extremities: No deformity, No tenderness to palpate, Normal ROM s pain, No edema, No calf tenderness / cord - Neuro Neuro: Alert and oriented X 3, No motor deficit, Normal speech Eye Opening: Spontaneous Motor: Obeys Commands Verbal: Oriented GCS Score: 15 - Psych Psych: No: Normal affect (anxious) Results - Vitals Vitals: Vital Signs - 24 hr 09/29/18 09/29/18 09/29/18 08:59 09:07 09:10 Temperature 36.5 C Heart Rate 100 91 97 Respiratory 24 22 Rate Blood Pressure 147/97 H 138/71 H O2 Saturation 51 L 76 L 09/29/18 09/29/18 09/29/18 09:15 09:30 10:00 Temperature Heart Rate 93 91 88 Respiratory 28 H 25 H 24 Rate Blood Pressure 108/66 126/96 H 117/89 H O2 Saturation 93 90 L 98 09/29/18 09/29/18 09/29/18 10:07 10:10 10:16 Temperature Heart Rate 83 85 86 Respiratory 24 24 21 Rate Blood Pressure 89/76 L 104/44 L O2 Saturation 100 100 09/29/18 09/29/18 09/29/18 10:18 10:25 10:28 Temperature Heart Rate 84 83 86 Respiratory 24 Rate Blood Pressure 117/59 L O2 Saturation 22 L Oxygen O2 Source BIPAP - Labs Labs: Laboratory Tests 09/29/18 09/29/18 09/29/18 09:23 09:23 09:23 WBC 4.6 L RBC 4.07 L Hgb 9.1 L Hct 28.7 L MCV 70.6 L MCH 22.3 L MCHC 31.6 L RDW 21.5 H Plt Count 222 MPV 6.4 L Neut # (Auto) 3.1 Lymph # (Auto) 0.9 L [place] # (Auto) 0.5 Eos # (Auto) 0.1 Baso # (Auto) 0.0 Absolute Nucleated RBC 0.00 Nucleated RBC % 0.0 Manual Slide Review Indicated WBC Morphology NORMAL APPEARANCE Platelet Morphology NORMAL APPEARANCE RBC Morph Micro Appear 2+ MICROCYTOSIS Bld Gas Analysis Time Sample Site ABG pH ABG pCO2 ABG pO2 ABG HCO3 ABG Total CO2 ABG O2 Saturation ABG Base Excess Tai Test O2 Delivery Device FiO2 EPAP IPAP Sodium 134 L Potassium 3.8 Chloride 99 L Carbon Dioxide 26 Anion Gap 9.0 BUN 16 Creatinine 1.0 Estimated GFR (MDRD) 54 L Glucose 201 H Calcium 8.4 L Magnesium 1.8 Total Bilirubin 0.3 AST 19 ALT 13 Alkaline Phosphatase 38 L B-Natriuretic Peptide 167 H Total Protein 6.4 L Albumin 3.7 Globulin 2.7 Albumin/Globulin Ratio 1.4 Lipase 24 09/29/18 09:45 WBC RBC Hgb Hct MCV MCH MCHC RDW Plt Count MPV Neut # (Auto) Lymph # (Auto) [place] # (Auto) Eos # (Auto) Baso # (Auto) Absolute Nucleated RBC Nucleated RBC % Manual Slide Review WBC Morphology Platelet Morphology RBC Morph Micro Appear Bld Gas Analysis Time 0945 Sample Site RIGHT RADIAL ABG pH 7.24 L ABG pCO2 62 H* ABG pO2 74 L ABG HCO3 25.9 ABG Total CO2 27.8 ABG O2 Saturation 92 L ABG Base Excess -1.9 Tai Test POSITIVE O2 Delivery Device BiPAP FiO2 60.00 EPAP 5 IPAP 15 Sodium Potassium Chloride Carbon Dioxide Anion Gap BUN Creatinine Estimated GFR (MDRD) Glucose Calcium Magnesium Total Bilirubin AST ALT Alkaline Phosphatase B-Natriuretic Peptide Total Protein Albumin Globulin Albumin/Globulin Ratio Lipase - Rads (name of study) chest sray Radiology: Prelim report reviewed, EMP read contemporaneously (left lower pneumothorax. No infiltrates.) repeat CXR Radiology: Prelim report reviewed, EMP read contemporaneously (PTX improved. chest vent tube in place. ) Procedures - Chest Tube (location) left 5th posterior axillary line Chest tube preparation: Consent obtained (verbal), Time out completed, Sterile prep and drape Chest tube location: Left, Intercostal space - enter (6), Posterior axillary line Chest tube anesthesia: Lidocaine, CC (enter) (3) Chest tube return: Air, Connected to suction Chest tube after care: Confirmed with xray, Pt tolerated well, Other (Thorasil kit used.) PD MEDICAL DECISION MAKING - ED course Complexity details: reviewed results (pneumothorax, no infiltrate), re-evaluated patient, considered differential (She is improving with BiPAP and chest tube, nebs, magnesium and Morphine. Able to relax and talk in sentences. Consulted Hospitalist and Surgery.), d/w patient ED course: She improved quite a bit after the chest tube placement and with repeat nebs. We were able to take her off the BiPAP and remained on just nasal cannula and repeated nebulizers. I did update the hospitalist about the improvement. They will see her in the ER. Departure - Departure Disposition: 66 [facility] DC/Xfer Clinical Impression: Dyspnea, Acute exacerbation of COPD with asthma, Loculated left lateral pn eumothorax Condition: Stable Record reviewed to determine appropriate education?: Yes Discharge Date/Time: 09/29/18 12:08
[2018-09-29] MEDS ORDERED: SODIUM CHLORIDE 0.9% 1,000 ML IV ONE ×2 (09:06→10:00)
[2018-09-29] MEDS ORDERED: MAGNESIUM SULFATE 1 GM/2 ML VIAL IVP STA (09:08)
[2018-09-29] MEDS ORDERED: MORPHINE 2 MG/ML CARPUJECT ONE (09:08)
[2018-09-29] MEDS ORDERED: IPRATROPIUM/ALBUTEROL 3 ML NEB INH STA (09:08)
[2018-09-29] MEDS: MORPHINE 2 MG/ML CARPUJECT IVP STA ×2 (09:11→13:13)
[2018-09-29 09:30] LABS: BASOPHILS % (AUTO) 0.7 %; EOSINOPHILS # (AUTO) 0.1 10^3/uL (0.0-0.7); HGB - HEMOGLOBIN 9.1 g/dL (12.0-16.0); LYMPHOCYTES # (AUTO) 0.9 10^3/uL (1.5-3.5); MEAN CORPUSCULAR HEMOGLOBIN 22.3 pg (27.0-31.0); MEAN CORPUSCULAR HGB CONC 31.6 g/dL (32.0-36.0); MEAN CORPUSCULAR VOLUME 70.6 fL (81.0-99.0); MEAN PLATELET VOLUME 6.4 fL (7.9-10.8); MONOCYTES # (AUTO) 0.5 10^3/uL (0.0-1.0); NEUTROPHILS # (AUTO) 3.1 10^3/uL (1.5-6.6); NEUTROPHILS % (AUTO) 66.3 %; PLT - PLATELET COUNT 222 10^3/uL (130-450); RED BLOOD COUNT 4.07 10^6/uL (4.20-5.40); RED CELL DISTRIBUTION WIDTH 21.5 % (12.0-15.0); WHITE BLOOD COUNT 4.6 x10^3/uL (4.8-10.8)
--- NOTE | 2018-09-29 09:33 | XRAY Report ---
Reason: dyspnea Procedure Date: 09/29/2018 Accession Number: [id number] / [id number] Procedure: XR - Chest 1 View X-Ray CPT Code: 46535 FULL RESULT: EXAM: CHEST RADIOGRAPHY EXAM DATE: 09/29/2018 09:08 AM. CLINICAL HISTORY: Dyspnea. COMPARISON: CHEST 2 VIEW 08/20/2018 1:55 PM CHEST ANGIO (AORTA) 10/01/2017 10:11 AM. TECHNIQUE: Upright AP view. FINDINGS: Lungs/Pleura: New mild right lung volume loss and mild expansion of the left hemithorax. Bandlike scar laterally in the left upper lobe, as before. Mild left apical pleural thickening, as before. New inferolateral left pneumothorax with pleural separation up to 28 mm inferolaterally and 16mm subpulmonic. No apical pneumothorax. No new focal airspace consolidation. No interstitial abnormality. Mediastinum: New mild rightward mediastinal shift. Heart size normal. Minimal aortic calcification. Other: None. IMPRESSION: New left tension pneumothorax. The pneumothorax visually appears relatively small with pleural separation 2.8 cm inferolateral and 1.6 cm subpulmonic. However, there is new mild rightward mediastinal shift. There is no apical component to the pneumothorax likely related to pleural parenchymal scarring, as before. RADIA The above findings were discussed with Bulmaro Khalil by Dr. David Veliz at 09:32 hrs on 09/29/18.
[2018-09-29] MEDS ORDERED: LIDOCAINE MPF 1%-EPI 1:200000 30 ML VIAL SUBQ STA (09:38)
[2018-09-29 09:42] LABS: ALBUMIN 3.7 g/dL (3.2-5.5); ALBUMIN/GLOBULIN RATIO 1.4 (1.0-2.2); BILIRUBIN,TOTAL 0.3 mg/dL (0.2-1.0); CALCIUM 8.4 mg/dL (8.5-10.3); MAGNESIUM 1.8 mg/dL (1.7-2.8); TOTAL PROTEIN 6.4 g/dL (6.7-8.2)
[2018-09-29 09:56] LABS: ABG BASE EXCESS -1.9 mmol/L (-2.0-3.0); ABG HCO3 25.9 mmol/L (22.0-26.0); ABG OXYGEN SATURATION 92 % (94-98); ABG PH 7.24 (7.35-7.45); ABG PO2 74 mmHg (80-100); ABG TCO2 27.8 MMOL/L (21.0-29.0); ALLEN TEST POSITIVE
[2018-09-29 09:59] LABS: PLATELET MORPHOLOGY NORMAL APPEARANCE (NORMAL)
[2018-09-29 10:01] LABS: ABG PCO2 62 mmHg (34-45)
[2018-09-29] MEDS ORDERED: MORPHINE 2 MG/ML CARPUJECT IVP STA (10:03)
[2018-09-29] MEDS ORDERED: ALBUTEROL NEB 2.5 MG/3 ML INH STA (10:03)
--- NOTE | 2018-09-29 10:28 | XRAY Report ---
Reason: chest vent placement Procedure Date: 09/29/2018 Accession Number: [id number] / [id number] Procedure: XR - Chest 1 View X-Ray CPT Code: 43359 FULL RESULT: EXAM: CHEST RADIOGRAPHY EXAM DATE: 09/29/2018 10:15 AM. CLINICAL HISTORY: Chest vent placement. COMPARISON: CHEST 1 VIEW 09/29/2018 9:08 AM. TECHNIQUE: Upright AP view. FINDINGS: Lungs/Pleura: The inferolateral left thorax has resolved following placement of a small caliber inferolateral left pleural drain. Bandlike scar laterally in the apical left upper lobe, as before. No new airspace opacities. Mediastinum: Within exam limitations, the cardiomediastinal contour is normal. Rightward mediastinal shift seen before has resolved. Other: None. IMPRESSION: 1. Resolution of inferolateral left pneumothorax following pleural drain placement. 2. Resolution of rightward mediastinal shift seen before. 3. Bandlike scar laterally in the apical left upper lobe, as before. RADIA
[2018-09-29] MEDS ORDERED: MORPHINE 10 MG/ML VIAL IVP STA (11:02)
--- NOTE | 2018-09-29 12:13 | HISTORY & PHYSICAL EXAMINATION ---
Chief Complaint - Chief Complaint Chief Complaint: sudden onset shortness of breath. History of Present Illness - Admitted From Admitted From:: ED - History Obtained From Records Reviewed: yes History obtained from: chart review, patient Exam Limitations: hypoxia - History of Present Illness HPI Comment/Other: Gwen Titus is a 77 year old female with a past medical history of COPD, oxygen dependence, pneumonia, chronic sinusitis, CHF, cor pulmonale, hyperlipidemia, hypertension, urinary incontinence and urgency, GERD, chronic pain, scholiosis, spinal stenosis, anxiety, depression, and osteoarthritis. For the past 2 weeks she has noticed that her breathing has become progressively worse with being able to tolerate less activity, so she adjusted her O2 setting from 2L to 3L per nasal cannula. This morning when she woke up, she was profoundly short of breath to the point that she could not even start to get dr essed without becoming severely short of breath. She called for help at her assisted living facility, and the medication techs called 911. Upon ED arrival, the patient was found to have a left pneumothorax on imaging with a mediastinal shift. Surgery was called, and a left chest tube was placed, which provided immediate relief. On exam, the patient is very restless, short of breath, using all of her accessory muscles, and states that the chest tube in her left side is very intolerable. She denies chest pain, nausea, vomiting, a rash, dizziness, or sputum production. Labs show anemia with an H/H of 9.1/28.7, a WBC count of 4.6, a reduced GFR of 54, an elevated glucose of 201, an elevated BNP of 167, ABG showed a PH of 7.24, PCO2 of 62, PO2 74, with no other abnormalities. Vital signs were temp-36.5, hr-100, rr-24, B/P-147/97 and oxygen saturation of 51% on her usual 3-4L of nasal cannula, prior to chest tube and bipap. After the patient got to our medical floor, she continued to decompensate, so I will call her emerging technologies director for their recommendation. History - Past Medical History Cardiovascular: reports: Congestive heart failure, High cholesterol Respiratory: reports: COPD, Pneumonia, Shortness of breath, Other Neuro: reports: Headaches Endocrine/Autoimmune: reports: None GI: reports: GERD : reports: Incontinence, Frequency HEENT: reports: Chronic sinusitis Psych: reports: Depression, Anxiety Musculoskeletal: reports: Osteoarthritis, Other Derm: reports: None MRSA Hx?: No - Past Surgical History General: reports: 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 /ADMINISTRATIVE INTERN: reports: Hysterectomy HEENT: reports: Cataracts - Family & Social History Family History: Mother: , Father: , Other family: Cancer, CVA/TIA, Hyperlipidemia, Hypertension, [place] Living arrangement: Assisted living ([facility]) Living Situation: With caregiver(s) - Substance History Use: Uses substance without health or social issues: NONE Abuse: Recurrent use of substance despite neg consequences: NONE Dependence: Experiences withdrawal or developed tolerances: NONE - POLST Patient has POLST: No POLST Status: Full Code Meds/Allgy - Home Medications Home Medications: Ambulatory Orders Medication Instructions Recorded Confirmed Cholecalciferol (Vitamin D3) 2,000 units PO DAILY 02/04/17 01/30/18 [Vitamin D3] Ipratropium/Albuterol [Duoneb] 3 ml NEB Q4H PRN 02/04/17 01/30/18 Lovastatin 40 mg PO QPM 02/04/17 01/30/18 Mometasone/Formoterol [Dulera 100 2 puffs INH BID 02/04/17 01/30/18 Mcg/5 Mcg Inhaler] Trazodone HCl 50 mg PO QPM 02/04/17 01/30/18 diphenhydrAMINE [Benadryl] 25 - 50 mg PO QPM PRN 02/04/17 01/30/18 Escitalopram [Lexapro] 10 mg PO DAILY 02/19/17 01/30/18 oxyCODONE ER [OxyCONTIN] 10 mg PO Q8H MDD 30mg 02/27/17 01/30/18 Albuterol Sulfate [Proair Hfa 2 puffs INH Q4H PRN 09/29/17 01/30/18 Inhaler] Loperamide [Imodium] 2 - 4 mg PO PRN PRN 09/29/17 01/30/18 Potassium Chloride [K-Dur] 20 meq PO BIDWM #60 tablet 10/05/17 01/30/18 Acetaminophen [Tylenol] 650 mg PO Q8H PRN 01/30/18 01/30/18 Furosemide 40 mg PO DAILY 01/30/18 01/30/18 Ipratropium [employer] 2 sprays OMID Q8H PRN 01/30/18 01/30/18 Lidocaine Patch 5% [Lidoderm Patch] 1 each TOP DAILY PRN 01/30/18 01/30/18 Multivitamin [Theragran] 1 each PO DAILY 01/30/18 01/30/18 Omeprazole 40 mg PO QDAC 01/30/18 01/30/18 Saccharomyces Boulardii [Florastor] 250 mg PO BIDWM 01/30/18 01/30/18 Triamcinolone 0.1% Cream [Kenalog 1 applic TOP BID 01/30/18 01/30/18 0.1% Cream] Diphenoxylate/Atropine [Lomotil] 1 tab PO TID PRN #30 tablet 02/05/18 Magnesium Oxide [Mag Ox] 400 mg PO BIDWM tablet 02/05/18 guaiFENesin/CODEINE [Robitussin AC] 5 ml PO Q6HR #120 udc 02/05/18 Ambrisentan [Letairis] 10 mg PO DAILY 09/29/18 Diclofenac Sodium/Misoprostol 1 tab PO DAILY 09/29/18 [Diclofenac-Misoprost 50-200 Tb] Lovastatin 40 mg PO QPM 09/29/18 Omeprazole 40 mg PO DAILY 09/29/18 Oxycodone HCl 5 - 10 mg PO Q6H PRN MDD 30 mg 09/29/18 Sildenafil Citrate [Sildenafil] 20 mg PO TID 09/29/18 Spironolactone 25 mg PO DAILY 09/29/18 Tiotropium [employer] [Spiriva 2 inh PO DAILY 09/29/18 Respimat] - Allergies Allergies/Adverse Reactions: Allergies Allergy/AdvReac Type Severity Reaction Status Date / Time Sulfa (Sulfonamide Allergy Mild Rash Verified 08/20/18 13:13 Antibiotics) Review of Systems - Constitutional Constitutional: reports: Fatigue, Chills, Weakness, Poor appetite - Eyes Eyes: reports: Vision loss - Ears, Nose & Throat Ears, Nose & Throat: reports: Postnasal drainage - Cardiovascular Cariovascular: reports: Exertional dyspnea, Decr. exercise tolerance, Orthopnea - Respiratory Respiratory: reports: Cough, Orthopnea, SOB at rest, SOB with exertion - Gastrointestinal Gastrointestinal: reports: Reflux/heartburn, Poor appetite - Genitourinary Genitourinary: reports: Frequency, Urgency, Incontinence - Musculoskeletal Musculoskeletal: reports: Limited range of motion, Muscle weakness - Integumentary Integumentary: reports: Dryness - Neurological Neurological: reports: Focal weakness, Pre-existing deficit - Psychiatric Psychiatric: reports: Depression, Anxiety - All Other Systems All Other Systems: reports: Reviewed and negative Prior Level of Functionality: Independent with a walker at assisted living. Oxygen dependent. Exam - Vital Signs Reviewed Vital Signs: Yes Vital Signs: Vital Signs x48h Temp Pulse Resp BP Pulse Ox 09/29/18 10:28 86 09/29/18 10:25 83 24 117/59 L 22 L 09/29/18 10:18 84 09/29/18 10:16 86 21 09/29/18 10:10 85 24 104/44 L 100 09/29/18 10:07 83 24 89/76 L 100 09/29/18 10:00 88 24 117/89 H 98 09/29/18 09:30 91 25 H 126/96 H 90 L 09/29/18 09:15 93 28 H 108/66 93 09/29/18 09:10 97 22 138/71 H 76 L 09/29/18 09:07 91 09/29/18 08:59 36.5 C 100 24 147/97 H 51 L - Physical Exam General Appearance: positive: Alert, Moderate distress, Anxious Eyes Bilateral: positive: PERRL ENT: positive: Pharyngeal erythema, Dry mucous membranes Neck: positive: No JVD, Trachea midline, Lymphadenopathy (R), Lymphadenopathy (L) Respiratory: positive: Wheezes, Rhonchi, Other (left chest tenderness, diminished to absent breath sounds on left chest.) Cardiovascular: positive: Regular rate & rhythm, Tachycardia, Systolic murmur, Decreased pulse(s) Peripheral Pulses: positive: 1+ Abdomen: positive: Non-tender, Nml bowel sounds, Other (rounded, firm) Back: positive: Nml inspection Skin: positive: No rash, Warm, Dry Extremities: positive: Non-tender, No pedal edema Neurologic/Psychiatric: positive: Oriented x3, CN's nml (2-12), Motor nml, Sensation nml, Weakness, Other (cannot speak in full sentances due to respiratory distress) Reflexes: Bicep (R): 3+, Bicep (L): 3+ Conclusion/Plan - Problem List (1) Loculated left lateral pneumothorax Conclusion/Plan: Imaging upon arrival to the ED shows an acute left pneumo, which goes with her symptoms as she had acute onset shortness of breath. She required bipap until the left lateral chest tube was placed, and has since been on 3-4L per nasal cannula. Plan: Continue left chest tube, provide oxygen. (2) Acute exacerbation of COPD with asthma Conclusion/Plan: The patient is known to have end stage COPD and is oxygen dependent on home. The patient is prescribed Duo-neb, Dulera, Proair, Ipratropium [employer], daily prednisone, and robitussin. Her usual setting is 2L per nasal cannula, but the patient has been up to 3L for the past 2 weeks due to increased shortness of breath. She was scheduled to have an appointment with Dr. Marin, pulmonology tomorrow, 09/30/18. Plan: Continue acute chest tube management, continue oxygen and nebulizers, monitor breathing. (3) Cor pulmonale Conclusion/Plan: On her last echo, she had a remarkably elevated RVSP at rest of 60 mmHg on 02/03/18, but it is likely way worse lately. The patient likely has a worsening of this with how she has declined and upon exam with her having an increased abdominal girth. Plan: continue treatment of acute left pneumo, and obtain echo. (4) Chronic pain Conclusion/Plan: The patient suffers from chronic back pain caused by stenosis, scholiosis, and she explains that she recently got steroid injections in L-02-02-5 for this chronic pain. She is prescribed both oxycontin and oxycodone at home. Plan: Continue to monitor and encouraged movement after this acute left pneumo is resolved. Qualifiers: Chronic pain type: chronic pain syndrome Qualified Code(s): G89.4 - Chronic pain syndrome - Lab Results Lab results reviewed: Yes Fish Bones: 09/29/18 09:23 09/29/18 09:23 - Diagnostic Imaging Results Diagnostic Imaging Results: positive: Prelim report reviewed Core Measures - Anticipated LOS I expect patient to be DC'd or transferred within 96 hours.: Yes - DVT/VTE - Prophylaxis VTE/DVT Device ordered at admit?: Yes VTE/DVT Prophylaxis med ordered at admit?: Yes - Stroke - Rehab Assessment Rehab services assessment to be ordered?: Yes - AMI - Statin at Admit Aspirin Prescribed on Admit: Yes
[2018-09-29] MEDS ORDERED: IPRATROPIUM/ALBUTEROL 3 ML NEB INH PRN (12:14)
[2018-09-29] MEDS ORDERED: MORPHINE 10 MG/ML VIAL IVP PRN ×3 (12:16→15:00)
[2018-09-29] MEDS: SODIUM CHLORIDE FLUSH 0.9% 10 ML SYRINGE IVP PRN ×2 (12:40→14:58)
[2018-09-29] MEDS ORDERED: LIDOCAINE PATCH 5% TOP PRN (12:49)
[2018-09-29] MEDS ORDERED: IPRATROPIUM/ALBUTEROL 3 ML NEB INH SCH (15:00)
[2018-09-29] MEDS ORDERED: OXYCODONE HCL 10 MG PO PRN (15:00)
[2018-09-29] MEDS ORDERED: oxyCODONE 5 MG TABLET PO PRN (15:05)
--- NOTE | 2018-09-29 15:28 | Discharge Plan ---
Discharge Plan Disposition: 02 Transfer Acute Care Hosp Condition: Stable Diet: Regular Activity Restrictions: Activity as Tolerated Shower Restrictions: No Driving Restrictions: Yes Assistance Devices: Walker Weight Bearing: Full Weight Additional Instructions or Follow Up instructions: Care to continue at [facility] for specialized pulmonary care. No Smoking: If you smoke, Please STOP! Call for help. Follow-up with: Edyta Newsome MD [Primary Care Provider] -
--- NOTE | 2018-09-29 15:31 | DISCHARGE SUMMARY ---
Discharge Summary Admit Date: 09/29/18 Discharge Date: 09/29/18 Discharging Provider: PARKER Lopez Primary Care Provider: Ramy Mason Code Status: Attempt Resuscitation Condition at Discharge: Stable Discharge Disposition: 02 Transfer Acute Care Hosp Discharge Facility Name: [facility] - DIAGNOSES Admission Diagnoses: Other pneumothorax (J93.83) Chronic obstructive pulmonary disease w (acute) exacerbation (J44.1) Cor pulmonale (chronic) (I27.81) Other chronic pain (G89.29) GERD (gastroesophageal reflux disease) (K21.9) Spinal stenosis (M48.00) Depression with anxiety (F41.8) Urticaria (L50.9) Discharge Diagnoses with Status of Each Condition: Other pneumothorax (J93.83) Left, chest tube in place, stable on discharge. Chronic obstructive pulmonary disease w (acute) exacerbation (J44.1) chronic, stable at discharge on 4L nasal cannula. Cor pulmonale (chronic) (I27.81) chronic, stable. Other chronic pain (G89.29) chronic, stable. GERD (gastroesophageal reflux disease) (K21.9) chronic, stable. Spinal stenosis (M48.00) chronic, stable. Depression with anxiety (F41.8) chronic, stable. Urticaria (L50.9)chronic, stable and thought to be caused by chronic narcotic use. Dependence on supplemental oxygen (Z99.81) chronic, oxygen to continue for transport. Temporarily on bipap in the ED prior to left chest tube. - HPI History of Present Illness: Gwen Titus is a 77 year old female with a past medical history of COPD, oxygen dependence, pneumonia, chronic sinusitis, CHF, cor pulmonale, hyperlipidemia, hypertension, urinary incontinence and urgency, GERD, chronic pain, scholiosis, spinal stenosis, anxiety, depression, and osteoarthritis. For the past 2 weeks she has noticed that her breathing has become progressively worse with being able to tolerate less activity, so she adjusted her O2 setting from 2L to 3L per nasal cannula. This morning when she woke up, she was profoundly short of breath to the point that she could not even start to get dressed without becoming severely short of breath. She called for help at her assisted living facility, and the medication techs called 911. Upon ED arrival, the patient was found to have a left pneumothorax on imaging with a mediastinal shift. Surgery was called, and a left chest tube was placed, which provided immediate relief. On exam, the patient is very restless, short of breath, using all of her accessory muscles, and states that the chest tube in her left side is very intolerable. She denies chest pain, nausea, vomiting, a rash, dizziness, or sputum production. Labs show anemia with an H/H of 9.1/28.7, a WBC count of 4.6, a reduced GFR of 54, an elevated glucose of 201, an elevated BNP of 167, ABG showed a PH of 7.24, PCO2 of 62, PO2 74, with no other abnormalities. Vital signs were temp-36.5, hr-100, rr-24, B/P-147/97 and oxygen saturation of 51% on her usual 3-4L of nasal cannula, prior to chest tube and bipap. After the patient got to our medical floor, she continued to decompensate, so I will call her bank courier for their recommendation. - HOSPITAL COURSE Hospital Course: (1) Loculated left lateral pneumothorax Imaging upon arrival to the ED shows an acute left pneumo, which goes with her symptoms as she had acute onset shortness of breath. She required bipap until the left lateral chest tube was placed, and has since been on 3-4L per nasal cannula. The patient's left chest tube remained in place, and she was provided oxygen. (2) Acute exacerbation of COPD with asthma The patient is known to have end stage COPD and is oxygen dependent on home. The patient is prescribed Duo-neb, Dulera, Proair, Ipratropium [employer], daily prednisone, and robitussin. Her usual setting is 2L per nasal cannula, but the patient has been up to 3L for the past 2 weeks due to increased shortness of breath. She was scheduled to have an appointment with Dr. Marin, pulmonology tomorrow, 09/30/18. (3) Cor pulmonale On her last echo, she had a remarkably elevated RVSP at rest of 60 mmHg on 02/03/18, but it is likely way worse lately. The patient likely has a worsening of this with how she has declined and upon exam with her having an increased abdominal girth. (4) Chronic pain The patient suffers from chronic back pain caused by stenosis, scholiosis, and she explains that she recently got steroid injections in 345 for this chronic pain. She is prescribed both oxycontin and oxycodone at home. Disposition: The patient was transferred for more specialized pulmonary care to [facility] in [place] where her pulmonology team is. - ALLERGIES Allergies/Adverse Reactions: Allergies Allergy/AdvReac Type Severity Reaction Status Date / Time Sulfa (Sulfonamide Allergy Mild Rash Verified 08/20/18 13:13 Antibiotics) - MEDICATIONS Home Medications: Ambulatory Orders Medication Instructions Recorded Confirmed Cholecalciferol (Vitamin D3) 2,000 units PO DAILY 02/04/17 01/30/18 [Vitamin D3] Ipratropium/Albuterol [Duoneb] 3 ml NEB Q4H PRN 02/04/17 01/30/18 Lovastatin 40 mg PO QPM 02/04/17 01/30/18 Mometasone/Formoterol [Dulera 100 2 puffs INH BID 02/04/17 01/30/18 Mcg/5 Mcg Inhaler] Trazodone HCl 50 mg PO QPM 02/04/17 01/30/18 diphenhydrAMINE [Benadryl] 25 - 50 mg PO QPM PRN 02/04/17 01/30/18 Escitalopram [Lexapro] 10 mg PO DAILY 02/19/17 01/30/18 oxyCODONE ER [OxyCONTIN] 10 mg PO Q8H MDD 30mg 02/27/17 01/30/18 Albuterol Sulfate [Proair Hfa 2 puffs INH Q4H PRN 09/29/17 01/30/18 Inhaler] Loperamide [Imodium] 2 - 4 mg PO PRN PRN 09/29/17 01/30/18 Potassium Chloride [K-Dur] 20 meq PO BIDWM #60 tablet 10/05/17 01/30/18 Acetaminophen [Tylenol] 650 mg PO Q8H PRN 01/30/18 01/30/18 Furosemide 40 mg PO DAILY 01/30/18 01/30/18 Ipratropium [employer] 2 sprays OMID Q8H PRN 01/30/18 01/30/18 Lidocaine Patch 5% [Lidoderm Patch] 1 each TOP DAILY PRN 01/30/18 01/30/18 Multivitamin [Theragran] 1 each PO DAILY 01/30/18 01/30/18 Omeprazole 40 mg PO QDAC 01/30/18 01/30/18 Saccharomyces Boulardii [Florastor] 250 mg PO BIDWM 01/30/18 01/30/18 Triamcinolone 0.1% Cream [Kenalog 1 applic TOP BID 01/30/18 01/30/18 0.1% Cream] Diphenoxylate/Atropine [Lomotil] 1 tab PO TID PRN #30 tablet 02/05/18 Magnesium Oxide [Mag Ox] 400 mg PO BIDWM tablet 02/05/18 guaiFENesin/CODEINE [Robitussin AC] 5 ml PO Q6HR #120 udc 02/05/18 Ambrisentan [Letairis] 10 mg PO DAILY 09/29/18 Diclofenac Sodium/Misoprostol 1 tab PO DAILY 09/29/18 [Diclofenac-Misoprost 50-200 Tb] Lovastatin 40 mg PO QPM 09/29/18 Omeprazole 40 mg PO DAILY 09/29/18 Oxycodone HCl 5 - 10 mg PO Q6H PRN MDD 30 mg 09/29/18 Sildenafil Citrate [Sildenafil] 20 mg PO TID 09/29/18 Spironolactone 25 mg PO DAILY 09/29/18 Tiotropium [employer] [Spiriva 2 inh PO DAILY 09/29/18 Respimat] - PHYSICAL EXAM AT DISCHARGE General Appearance: positive: Alert, Severe distress, Anxious Eyes Bilateral: positive: No lid inflammation ENT: positive: Pharyngeal erythema, Dry mucous membranes Neck: positive: No JVD, Trachea midline, Lymphadenopathy (R), Lymphadenopathy (L) Respiratory: positive: Wheezes, Rales, Other (absent left mid lobe, coarse crackles) Cardiovascular: positive: Regular rate & rhythm, No gallop, Systolic murmur, Decreased pulse(s) Peripheral Pulses: positive: 1+ Abdomen: positive: Non-tender, Nml bowel sounds, Other (rounded, firm) Back: positive: Nml inspection Skin: positive: No rash, Warm, Dry, Cyanosis, Other (itchy skin-chronically due to narcotics, baseline) Neurologic/Psychiatric: positive: Oriented x3, Sensation nml, Weakness, De pressed mood/affect, Other (one word sentences) Reflexes: Bicep (R): 3+, Bicep (L): 3+ - LABS Result Diagrams: 09/29/18 09:23 09/29/18 09:23 - DIAGNOSTIC IMAGING Diagnostic Imaging Results: Final report reviewed Diagnostic Imaging Results Comments: EXAM: CHEST RADIOGRAPHY EXAM DATE: 09/29/2018 09:08 AM. IMPRESSION: New left tension pneumothorax. The pneumothorax visually appears relatively small with pleural separation 2.8 cm inferolateral and 1.6 cm subpulm onic. However, there is new mild rightward mediastinal shift. There is no apical component to the pneumothorax likely related to pleural parenchymal scarring, as before. EXAM: CHEST RADIOGRAPHY EXAM DATE: 09/29/2018 10:15 AM. IMPRESSION: 1. Resolution of inferolateral left pneumothorax following pleural drain placement. 2. Resolution of rightward mediastinal shift seen before. 3. Bandlike scar laterally in the apical left upper lobe, as before. - FOLLOW UP Follow Up: As per [facility]. The patient lives in [place], [place] at an assisted living facility. - TIME SPENT Time Spent in Discharge (Minutes): 45
[2018-09-29] MEDS ORDERED: SODIUM CHLORIDE FLUSH 0.9% 10 ML SYRINGE IVP SCH (17:00)
[2018-09-29] MEDS ORDERED: BUDESONIDE 0.5 MG/2 ML NEB INH SCH (19:00)
[2018-09-29] MEDS ORDERED: FORMOTEROL FUMARATE NEB 20 MCG/2 ML INH SCH (19:00)
--- NOTE | 2018-09-29 23:08 | CONSULTATION NOTE ---
Referring Provider Name of Referring Provider:: Dr. Bulmaor Khalil Consult Date: 09/29/18 Chief Complaint - Chief Complaint Chief Complaint: Spontaneous LEFT pneumothorax History of Present Illness - Admitted From Admitted From:: [facility] ED - History Obtained From Records Reviewed: Yes History obtained from: Patient, but mostly the chart (including old ones) and Dr. Khalil Exam Limitations: Patient's perseveration made in depth questioning difficult - History of Present Illness HPI Comment/Other: I was called by Dr. Bulmaro Khalil to evaluate this 77-year-old female for a spontaneous left pneumothorax. When Dr. Khalil called I was in the operating room and there was a slight delay until he could see the patient in the emergency department. By the time she was seen Dr. Khalil had placed a Pleuraseal chest tube in her left lateral side with a chest x-ray that showed resolution of her pneumothorax. Additionally there is quite a bit of fluid in the tubing. The patient was complaining of pain essentially everywhere. The chest tube hurt. The IV hurt. The blood pressure cuff hurt. I was called strictly to manage the chest tube. However it should be noted that this patient is exceedingly complex from a pulmonary standpoint with COPD, oxygen dependence, pulmonary hypertension, history of pneumonia, and cor pulmonale. She is seen by a bookkeeping clerks supervisor in [place] who has instructed her to never have surgery. When I asked her about this she stated that she would not consider having anything surgical done without her bookkeeping clerks supervisor direct inv olvement. I asked this question due to the likely fact that she would need to have her chest tube changed to a more standard chest tube. Initially she was refusing even local anesthesia if this was required and I kept trying to explain to her what exactly was involved were strictly local anesthesia. She was so adamant for no anesthesia I am not entirely sure that she heard to me. She expressed a wish to be transferred to [place] to be in the presence of her bookkeeping clerks supervisor. 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: reports: Hysterectomy HEENT: reports: Cataracts - Family & Social History Family History: Mother: , Father: , Other family: Cancer, CVA/TIA, Hyperlipidemia, Hypertension, [place] Living arrangement: Assisted living ([facility]) Living Situation: With caregiver(s) - Substance History Use: Uses substance without health or social issues: NONE Abuse: Recurrent use of substance despite neg consequences: NONE Dependence: Experiences withdrawal or developed tolerances: NONE - POLST Patient has POLST: No POLST Status: Full Code Meds/Allgy - Home Medications Home Medications: Ambulatory Orders Medication Instructions Recorded Confirmed Cholecalciferol (Vitamin D3) 2,000 units PO DAILY 02/04/17 01/30/18 [Vitamin D3] Ipratropium/Albuterol [Duoneb] 3 ml NEB Q4H PRN 02/04/17 01/30/18 Lovastatin 40 mg PO QPM 02/04/17 01/30/18 Mometasone/Formoterol [Dulera 100 2 puffs INH BID 02/04/17 01/30/18 Mcg/5 Mcg Inhaler] Trazodone HCl 50 mg PO QPM 02/04/17 01/30/18 diphenhydrAMINE [Benadryl] 25 - 50 mg PO QPM PRN 02/04/17 01/30/18 Escitalopram [Lexapro] 10 mg PO DAILY 02/19/17 01/30/18 oxyCODONE ER [OxyCONTIN] 10 mg PO Q8H MDD 30mg 02/27/17 01/30/18 Albuterol Sulfate [Proair Hfa 2 puffs INH Q4H PRN 09/29/17 01/30/18 Inhaler] Loperamide [Imodium] 2 - 4 mg PO PRN PRN 09/29/17 01/30/18 Potassium Chloride [K-Dur] 20 meq PO BIDWM #60 tablet 10/05/17 01/30/18 Acetaminophen [Tylenol] 650 mg PO Q8H PRN 01/30/18 01/30/18 Furosemide 40 mg PO DAILY 01/30/18 01/30/18 Ipratropium [place] 2 sprays OMID Q8H PRN 01/30/18 01/30/18 Lidocaine Patch 5% [Lidoderm Patch] 1 each TOP DAILY PRN 01/30/18 01/30/18 Multivitamin [Theragran] 1 each PO DAILY 01/30/18 01/30/18 Omeprazole 40 mg PO QDAC 01/30/18 01/30/18 Saccharomyces Boulardii [Florastor] 250 mg PO BIDWM 01/30/18 01/30/18 Triamcinolone 0.1% Cream [Kenalog 1 applic TOP BID 01/30/18 01/30/18 0.1% Cream] Diphenoxylate/Atropine [Lomotil] 1 tab PO TID PRN #30 tablet 02/05/18 Magnesium Oxide [Mag Ox] 400 mg PO BIDWM tablet 02/05/18 guaiFENesin/CODEINE [Robitussin AC] 5 ml PO Q6HR #120 udc 02/05/18 Ambrisentan [Letairis] 10 mg PO DAILY 09/29/18 Diclofenac Sodium/Misoprostol 1 tab PO DAILY 09/29/18 [Diclofenac-Misoprost 50-200 Tb] Lovastatin 40 mg PO QPM 09/29/18 Omeprazole 40 mg PO DAILY 09/29/18 Oxycodone HCl 5 - 10 mg PO Q6H PRN MDD 30 mg 09/29/18 Sildenafil Citrate [Sildenafil] 20 mg PO TID 09/29/18 Spironolactone 25 mg PO DAILY 09/29/18 Tiotropium [place] [Spiriva 2 inh PO DAILY 09/29/18 Respimat] - Allergies Allergies/Adverse Reactions: Allergies Allergy/AdvReac Type Severity Reaction Status Date / Time Sulfa (Sulfonamide Allergy Mild Rash Verified 08/20/18 13:13 Antibiotics) Review of Systems - Constitutional Constitutional: reports: Fatigue, Malaise, Weakness, Poor appetite - Cardiovascular Cariovascular: reports: Chest pain - Respiratory Respiratory: reports: SOB at rest, SOB with exertion, Pleuritic pain (With a chest tube in.) - Gastrointestinal Gastrointestinal: denies: Abdominal pain - Musculoskeletal Musculoskeletal: reports: Muscle pain, Back pain, Muscle aches - Integumentary Integumentary: denies: Rash - Neurological Neurological: reports: General weakness. denies: Focal weakness Exam - Vital Signs Reviewed Vital Signs: Yes Vital Signs: Vital Signs x48h Pulse Resp BP Pulse Ox 09/29/18 15:44 85 17 99/86 H 96 - Physical Exam General Appearance: positive: Moderate distress, Anxious (Clearly anxious and in pain.) Eyes Bilateral: positive: No lid inflammation, Conjunctivae nml, No scleral icterus ENT: positive: Dry mucous membranes Neck: positive: Trachea midline Respiratory: positive: Chest non-tender, Breath sounds nml (Slightly diminished bilaterally) Cardiovascular: positive: Tachycardia (Mild.) Abdomen: positive: Non-tender, Nml bowel sounds Skin: positive: Color nml Neurologic/Psychiatric: positive: Oriented x3 Conclusion/Plan - Diagnosis Diagnosis: Spontaneous left pneumothorax. - Plan Plan: I have not had very good luck with the chest tube device had been placed by Dr. Khalil. They tend to get occluded with fluid and unless someone has a simple and small pneumothorax that can probably be handled without a chest tube I have not felt that the diameter of the chest tube is large enough to resolve the underlying pneumothorax. I explained to the patient that this may need to be changed for a much larger chest tube and she said that she did not wish to have anything done at this hospital unless her bookkeeping clerks supervisor had direct involvement. I explained that her bookkeeping clerks supervisor is not on staff at our hospital. I went on to explain very clearly that I could put a chest tube in with a strictly local anesthesia or local anesthesia with some MAC anesthesia that would not require her to be intubated. She adamantly refused. She stated that she did not wish to have anything done, again without her bookkeeping clerks supervisor involvement. As a result and due to her complex medical/pulmonary status I think it would be prudent to transfer her to her bookkeeping clerks supervisor care. 45 minutes of [id number] time spent with the patient, the majority of which was spent in discussion, coordination of care, and completion of the requisite paperwork Kingson disclaimer: This document was created in part using voice recognition technology. Because of the inherent limitations of the system ([employer] user manual states that the licensee understands that speech recognition is a statistical process and that recognition errors are inherent in the process), occasional same sounding word substitutions and grammatical errors do occur and persist despite proofreading. Please read this document for context. - Lab Results Lab results reviewed: Yes Fish Bones: 09/29/18 09:23 09/29/18 09:23 - Diagnostic Imaging Results Diagnostic Imaging Results: positive: Final report reviewed, Read independently
[2018-09-29 23:12] VITALS: BP 107/50
[2018-09-30] MEDS ORDERED: POLYETHYLENE GLYCOL 3350 17 GM PACKET PO SCH (09:00)
== END 2018-09-29 17:33 | disposition short-term general hospital (02) | DRG 200 ==
LOC: EDUNIT# → ED 08:55 → ICU 11:13
PROVIDERS: ADMIT Nurse Practitioner; ATTEND Nurse Practitioner
DX: J93.9 Pneumothorax, unspecified (principal); J44.1 Chronic obstructive pulmonary disease with (acute) exacerbation; K21.9 Gastro-esophageal reflux disease without esophagitis; E78.00 Pure hypercholesterolemia, unspecified; M19.90 Unspecified osteoarthritis, unspecified site; I11.0 Hypertensive heart disease with heart failure; I50.9 Heart failure, unspecified; I27.81 Cor pulmonale (chronic); E78.5 Hyperlipidemia, unspecified; G89.29 Other chronic pain; M48.00 Spinal stenosis, site unspecified; M41.9 Scoliosis, unspecified; F41.8 Other specified anxiety disorders; J32.9 Chronic sinusitis, unspecified; L50.9 Urticaria, unspecified; T40.2X5A Adverse effect of other opioids, initial encounter; Z99.81 Dependence on supplemental oxygen; D64.9 Anemia, unspecified; H54.7 Unspecified visual loss; R32 Unspecified urinary incontinence; R39.15 Urgency of urination; Z87.01 Personal history of pneumonia (recurrent); Z79.51 Long term (current) use of inhaled steroids; Z79.891 Long term (current) use of opiate analgesic
CPT/HCPCS: 32551; 36415; 36600; 71045; 80053; 82803; 83690; 83735; 83880; 85025; 87150; 93005; 94640; 94660; 96361; 96374; 96375; 96376; 99284; 99285

== ENCOUNTER 2018-10-20 11:25 | Outpatient (CLI) | payer MEDICARE, OTHER ==
--- NOTE | 2018-10-20 15:34 | CONSULTATION NOTE ---
Palliative Care Consultation - Referral Referring Provider: Dr Darron Farmer. PCP is Dr Walters. Cocoa Milling Machine Operator Dr Ovalle Time of Visit: 10/30/2018. 11:25 - 12:55 Referral setting: Assisted living (Seen in home setting due to taxing and considerable effort required to leave the home due to significant SOA secondary to end-stage COPD and pulmonary arterial hypertension.) Referral Reason: Pulmonary arterial HTN - Information Sources Records reviewed: RN notes reviewed, Previous records reviewed History/Review of Systems obtained from: Patient, Nursing Exam limitations: No limitations - History of Present Illness Brief History of Present Illness: Thank you, Dr. Darron Farmer, for asking the palliative care consult service to be involved in the care of your patient. I am asked to provide support regarding advanced care planning, goals of care, decisional support, and patient and family support. -------- 77-year-old female, living at [facility] for 7 years, with end- stage COPD and pulmonary arterial HTN, recently hospitalized for COPD exacerbation and pneumothorax, with increased shortness of breath and debility since this episode. She has manager terminal chronic pain which is now being managed by a pain clinic in [place]. Referred to palliative care for advanced care planning and because additional support resources are required by the PA facility due to advancing respiratory disease. Medical history: Pulmonary arterial HTN, centrilobular emphysema; endstage COPD; chronic respiratory failure; pulmonary fibrosis; diastolic CHF with normal LV systolic function, EF 65%; HTN; chronic pain, opioid dependency managed by pain clinic; HLD; iron deficiency anemia; GERD; depression and anxiety; osteoarthritis; h/o etoh abuse; former smoker 100 pack years, Patient was hospitalized 09/29/18 to 10/06/18 for L pneumothorax. Taken to ED at for profound shortness of air and imaging revealed a left pneumothorax on imaging with a mediastinal shift. -Surgery was called, left chest tube was placed which provided immediate relief, but she continued to decompensate after transfer to the medical floor. she was transferred to [facility] in [place] to be managed by her longtime newscast director, Dr. Marin. -She has no complaints of pain, explaining that she started with the new pain clinic in Aug, and they are still titrating, but feels confident they will be able to control her pain. At this time the plan is that the pain clinic will manage her opioid dosing, not palliative care. -Nursing at the [facility] is concerned about dosage and possible respiratory sedation. Patient reports when pain is not controlled it increases her anxiety and exacerbates dyspnea. -Patient's SOA today is at her new, worse baseline; O2 is 4L at rest, 6L with exertion. -She uses nebulizer several times daily, but does not have a Trilogy respirator. I provided education on what it is and recomended she follow up with newscast director at her visit on 10/28/18. -Patient participates in Home health PT twice weekly through [facility]'s in-house therapy program -- it's what "keeps her upright." -Patient complains of recent painful, pitting edema in feet, left is worse (3+) than right. She is on Lasix 40mg. -Nursing reports that they accepted her back to the facility after her hospitalization, on the condition of starting either hospice or palliative care oversight, and also that she improve her behaviors toward staff. She has lived there 7 years and has a history of treating staff members poorly, calling them names, etc. Nursing says so far she has kept to this agreement. -Patient has a history of alcohol abuse, but now drinks [employer] non-alcoholic beer. Medical/Surgical History - Past Medical History Cardiovascular: reports: Congestive heart failure, High cholesterol Respiratory: reports: COPD, Pneumonia, Shortness of breath, Other (pulmonary fibrosis; pulmonary arterial HTN; centrilobuar emphysema; chronic respiratory failure; L pneumothorax Sep 2018.) Neuro: Headaches Neuro: reports: None Endocrine/Autoimmune: reports: None GI: reports: GERD : reports: Incontinence, Frequency HEENT: reports: Chronic sinusitis Psych: reports: Depression, Anxiety Musculoskeletal: reports: Osteoarthritis, Chronic back pain, Other Derm: reports: None MRSA Hx?: No - Past Surgical History General: reports: 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 100 pack year smoking history. never used smokeless tobacco. Does not use etoh or recreation drugs.) Social History - Living Situation Living arrangement: Assisted living ([facility] in [place]) Living Situation: With caregiver(s) Support System: Her son/DPOA Zhang Titus lives nearby with his and two children and is closely involved in her care. She has two grandchildren: 13 yr old girl and 10 yr old boy. Her second son lives in [place] and is unmarried. She has not driven recently but would if she could and is still hoping she can. Case PARKER Parsons at [facility], [phone] Samm Marin, Pulmonology, [facility], [phone],fax [phone]. Family History - Family History Family History Comment/Other: Asthma in her son. Lymphoma in her son. Medications/Allergies - Medications Home Medications: Ambulatory Orders Medication Instructions Recorded Confirmed Cholecalciferol (Vitamin D3) 2,000 units PO DAILY 02/04/17 10/20/18 [Vitamin D3] Ipratropium/Albuterol [Duoneb] 3 ml NEB Q4H PRN 02/04/17 10/20/18 Mometasone/Formoterol [Dulera 100 2 puffs INH BID 02/04/17 10/20/18 Mcg/5 Mcg Inhaler] Trazodone HCl 50 mg PO QPM 02/04/17 10/20/18 diphenhydrAMINE [Benadryl] 50 mg PO QPM PRN 02/04/17 10/20/18 Escitalopram [Lexapro] 10 mg PO DAILY 02/19/17 10/20/18 oxyCODONE ER [OxyCONTIN] 10 mg PO Q8H MDD 30mg 02/27/17 10/20/18 Albuterol Sulfate [Proair Hfa 2 puffs INH Q4H PRN 09/29/17 10/20/18 Inhaler] Loperamide [Imodium] 2 - 4 mg PO PRN PRN MDD NTE 6 tabs 09/29/17 10/20/18 in 24 hours Potassium Chloride [K-Dur] 20 meq PO BIDWM #60 tablet 10/05/17 10/20/18 Acetaminophen [Tylenol] 650 mg PO Q8H PRN 01/30/18 10/20/18 Furosemide 40 mg PO DAILY 01/30/18 10/20/18 Ipratropium [place] 2 sprays OMID Q8H PRN 01/30/18 10/20/18 Lidocaine Patch 5% [Lidoderm Patch] 1 each TOP DAILY PRN 01/30/18 10/20/18 Multivitamin [Theragran] 1 each PO DAILY 01/30/18 10/20/18 Saccharomyces Boulardii [Florastor] 250 mg PO BIDWM 01/30/18 10/20/18 Triamcinolone 0.1% Cream [Kenalog 1 applic TOP BID 01/30/18 10/20/18 0.1% Cream] Diphenoxylate/Atropine [Lomotil] 1 tab PO TID PRN #30 tablet 02/05/18 10/20/18 Magnesium Oxide [Mag Ox] 400 mg PO BIDWM tablet 02/05/18 10/20/18 Ambrisentan [Letairis] 10 mg PO DAILY 09/29/18 10/20/18 Diclofenac Sodium/Misoprostol 1 tab PO DAILY 09/29/18 10/20/18 [Diclofenac-Misoprost 50-200 Tb] Lovastatin 40 mg PO QPM 09/29/18 10/20/18 Omeprazole 40 mg PO DAILY 09/29/18 10/20/18 Oxycodone HCl 10 mg PO TID MDD 30 mg 09/29/18 10/20/18 Sildenafil Citrate [Sildenafil] 20 mg PO TID 09/29/18 10/20/18 Spironolactone 25 mg PO DAILY 09/29/18 10/20/18 Tiotropium [place] [Spiriva 2 inh PO DAILY 09/29/18 10/20/18 Respimat] Bismuth Subsalicylate [Mccune 15 ml PO DAILY PRN 10/20/18 10/20/18 Bismuth] Magnesium Hydroxide [Milk of 30 ml PO DAILY PRN 10/20/18 10/20/18 Magnesia] Oxymetazoline HCl [Afrin] 2 spray OMID BID PRN MDD 2 days on 10/20/18 10/20/18 and 2 days off - Allergies Allergies/Adverse Reactions: Allergies Allergy/AdvReac Type Severity Reaction Status Date / Time Sulfa (Sulfonamide Allergy Mild Rash Verified 08/20/18 13:13 Antibiotics) Review of Systems - Constitutional Constitutional: reports: Fatigue, Weight gain (117.2 lbs today. 116.2 lbs 10/19/18, 114.9 lbs 10/18/18. 113.6 lbs 10/16/18. Non-edemic weight range seems to be 110-114 lbs.). denies: Poor appetite - Eyes Eyes: reports: Vision loss, Corrective lenses - Cardiovascular Cardiovascular: reports: Edema (L foot worse than R foot). denies: Chest pain - Respiratory Respiratory: reports: Cough (wet, gravelly cough, at baseline), Wheezing, SOB at rest (4L O2), SOB with exertion (6L O2) - Gastrointestinal Gastrointestinal: reports: Good appetite. denies: Constipation - Genitourinary Genitourinary: denies: Incontinence - Musculoskeletal Musculoskeletal: reports: Back pain (chronic), Assistive devices (ambulatory by wheelchair. No longer able to use walker due to SOA). denies: Transfer issues - Psychiatric Psychiatric: reports: Depression, Anxiety - Other Findings Other Findings: Limited ROS Physical Exam - Vital Signs Temperature: 96.5 F Pulse Rate: 79 O2 Saturation: 92 (4L O2 via nasal cannula) Blood Pressure: 114/50 (Arm cuff) - Physical Exam General Appearance: positive: No acute distress, Alert Eyes Bilateral: positive: EOMI, No lid inflammation, Conjunctivae nml, No scleral icterus ENT: positive: No signs of dehydration Neck: positive: No JVD, Trachea midline Cardiovascular: positive: Regular rate & rhythm Respiratory: positive: Chest non-tender, No respiratory distress, Diminished throughout (No air sounds on LLL (pneumothorax)), Wheezes. negative: Breath sounds nml Abdomen: positive: Non-tender, Soft Skin: positive: No symptoms Extremities: positive: Pedal edema (Left edema 3+, right side is not as bad) Neurologic/Psychiatric: positive: Oriented x3, Mood/affect nml Palliative Care - POLST Patient has POLST: Yes POLST Status: DNR, Selective Treatment Pain: Pain improved (improved with short acting oxycodone) Tiredness/Fatigue: Moderate (4-6) (energy level is worse since hospitalization) Drowsiness/Sedation: None Dyspnea: Moderate (4-6) Anorexia: None Sleep: Sleeps well (Sleep has improved since her hospitalization) Constipation: No Performance Status: Worsened SOA since hospitalization for pneumothorax. Previously 2L per hour; now 4L/hr at rest, 6L/hr with exertion. Ambulatory by wheelchair, because pt is too SOA for walker. More fatigue. No cognitive deficits. - Palliative Care Discussion: New POLST signed by Dr Walters 10/09/2018: DNR and select care. The pulmonary arterial HTN was diagnosed in December 2017. Dr He, her hr advisor, recommended she "get your affairs in order," and gave her a prognosis of 2 years. She said her newscast director, Dr Marin, has been her "cheerleader," and helped her get on to Letairis and sildenafil for the PAH (pulmonary arterial HTN), after applying for it and going through 3 months of extensive testing. In March she was started on Letairis, which costs $100,000 per year, and sildenafil. Dr Marin gave her a 2-5 year prognosis. She wants to continue Letairis for improvement of her quality of life in the time she has left. She doesn't want intubation, but still wants to be treated for reversible conditions. She does recognize her quality of life has worsened; two years ago she was still able to travel out of state to visit friends, although at one such event in [place] approx 2 years ago, she was found on the floor of her hotel, with respiratory crisis, and was hospitalized in [place]. She went on one more road trip after that, but is no longer able to drive. She does hope her condition might improve to the point she can, but also recognizes that she is more and more limited in what she can do, and admits her "bucket list" is a short one: spend as much time as she can with her sons and her two grandchildren. Her family is coming to the facility for Thanksgiving; it's too taxing for her to leave the facility now But she hopes she can go to her son's house for [place]. She says the ongoing Physical Therapy is what help keeps her mobile. Provided education on the and Boat Deckhand services for Palliative Care patients; she does not currently want these services. Results - Lab Results Lab results reviewed: Yes Lab and Imaging Results: 10/03/18: Na 135 K+ 4.6 Ch 101 CO2 29 Glucose 167 BUN 15 Cr 0.7 GFR 84 Ca 8.5 mildly low WBC 3.9 mildly low Hgb 8.1 L Hct 26.7 L RBC 3.76 Impression and Recommendations - Palliative Care Impression: 77-year-old female, living at [facility] for 7 years, with end- stage COPD and lung disease, and pulmonary arterial HTN (PAH). She was recently hospitalized for COPD exacerbation and pneumothorax, with worsened shortness of breath and debility since this episode. Patient has been on Letairis and sildenafil for the PAH about 6 months and wants to continue it as long as it improves her quality of life and life expectancy. She has custodial chronic pain managed by [facility] in [place]. Palliative care will not manage nor order opioids, but will provide support and monitoring, with eventual transition to Hospice when appropriate. Recommendations/Counseling Done: Pulmonary arterial hypertension: Diagnosed December 2017. Followed by newscast director Dr Marin of [facility] in [place]. He started her on Letairis and sildenafil in March. Last visit was 08/25, visit is 10/28/18. Patient to inquire about starting Trilogy respirator. COPD exacerbation / pneumothorax: Chronic dyspnea worse since hospital/pneumothorax; now 4L O2 per hour at rest, 6L with exertion. Limited functionality, no longer ambulatory with walker. Uses Duonebs/nebulizer daily as needed, Dulera, Spiriva daily and ProAir Respiclick/albuterol as needed. Chronic pain: Managed by PARKER Parsons of [facility] since August. She will manage dosing and opioid ordering. Currently on Oxycontin 10mg TID and oxycodone 10mg TID since 10/14/18. Also diclofenac/misoprost daily for joint pain and Tylenol as needed. Left message at the pain clinic to introduce myself and follow up on patient's status. [facility] acute care nursing assistant is concerned about opiate dosing as she has had a history of COPD exacerbation from too much opiates on board. CHF and [id number] lower extremity edema: Worsening pedal edema x several days. Increased Lasix from 40 mg daily to 80mg daily x 3 days for increased pedal edema and recent weight gain (now 117 lbs; usually 112-115 lbs.). Return to regular 40mg dosing after 3 days. Potassium remains 20meq. Continue spironolactone. Patient denies that SOA is worse over the past few days. Advanced care planning: POLST signed 10/09/[address] Walters: DNR and selective treatment. Patient wants no intubation but does want to continue Letairis ($100k per year) and sildenafil for quality of life and prolongation of life. She does realize the gravity of her disease and says she has a "short bucket list" -- she wants to spend it with her sons and 2 grandchildren. She has been given a prognosis of between 2 to 5 years (newscast director Dr Marin of [facility] in [place] was the more optimistic). Patient will follow up with Palliative Care PILOT SAFETY INSPECTOR if no improvement in pedal edema with diuretic increase. Time Spent: 90 minutes were spent with more than 50% of the time spent on counseling, education, and coordination of care.
== END 2018-10-20 11:26 | disposition home or self-care (01) ==
LOC: PC 11:25
PROVIDERS: ATTEND Nurse Practitioner
DX: Z51.5 Encounter for palliative care (principal); I27.21 Secondary pulmonary arterial hypertension; J44.9 Chronic obstructive pulmonary disease, unspecified; Z79.899 Other long term (current) drug therapy; Z99.81 Dependence on supplemental oxygen; G89.29 Other chronic pain; I50.9 Heart failure, unspecified; R60.0 Localized edema; J98.4 Other disorders of lung; Z66 Do not resuscitate; Z87.891 Personal history of nicotine dependence

== ENCOUNTER 2018-10-31 11:14 | Outpatient (CLI) | payer MEDICARE, OTHER | END 2018-10-31 11:15 | disposition short-term general hospital (02) | LOC: EMS 11:14 | PROVIDERS: ATTEND Surgery | DX: M79.89 Other specified soft tissue disorders (principal); M79.662 Pain in left lower leg; M79.661 Pain in right lower leg | CPT/HCPCS: A0425; A0429 ==

== ENCOUNTER 2018-11-13 08:00 | Outpatient (CLI) | payer MEDICARE, OTHER | END 2018-11-13 23:59 | disposition home or self-care (01) | LOC: LAB.WCP 08:00 | PROVIDERS: ATTEND Family Medicine | DX: F10.10 Alcohol abuse, uncomplicated (principal) | CPT/HCPCS: 36415; 84484 ==

== ENCOUNTER 2018-12-10 16:56 | Outpatient (CLI) | payer MEDICARE, OTHER ==
--- NOTE | 2018-12-10 17:00 | CONSULTATION NOTE ---
Palliative Care Follow Up - Referral Referring Provider: Dr Newsome Time of Visit: 12/10/2018. 11:55 - 13:00 Referral setting: Assisted living (Seen in home setting due to taxing and considerable effort required to leave the home due to significant SOA secondary to end-stage COPD and pulmonary arterial hypertension.) Referral Reason: Fatigue / Pal Care - Information Sources Records reviewed: RN notes reviewed, Previous records reviewed History/Review of Systems obtained from: Patient, Nursing Exam limitations: Clinical condition (SOA with speaking) - History of Present Illness Update Brief HPI Update: 78-year-old female, living at [facility] for 7 years, with end- stage COPD and pulmonary arterial HTN, hospitalized most recently in October for COPD exacerbation and pneumothorax, with continued slow, steady decline. She has jail chronic pain which is now being managed by a pain clinic in [place]. Referred to palliative care for advanced care planning and because additional support resources are required by the HI facility due to advancing respiratory disease. Medical history: Pulmonary arterial HTN, centrilobular emphysema; endstage COPD; chronic respiratory failure; pulmonary fibrosis; diastolic CHF with normal LV systolic function, EF 65%; HTN; chronic pain, opioid dependency managed by pain clinic; HLD; iron deficiency anemia; GERD; depression and anxiety; osteoarthritis; h/o etoh abuse; former smoker 100 pack years, Patient reports worsening fatigue and SOA. She reports she's "not doing as well as I should be." Since her hospitalization in October for pneumothorax, oxygen usage has increased from 2L, to 4L and sometimes 6L. She reports this increase has impacted many aspects of her life. She goes through oxygen much more rapidly, nostrils feel dried out, and mobility (getting out of the facility) and lifestyle is impacted. She is concerned that she tires so easily and sleeps so much more than she used to. She also has cerumen impaction in both ears, but can't get in to see her PCP for at least a month. Her chronic back pain wasn't being controlled well; she saw the pain clinic provider yesterday who adjusted her opioids. Today she woke up in less pain. She complains of a new numbness in her hands upon waking up. We discussed increasing mobility and looking at functional etiologies (sedentary, posture, etc). She reports not doing well in PT because she is "not doing her homework" and not walking enough. But she complains that her spinal stenosis and back pain prevents her from walking. I did recommend the book, "Back Sufferer's Bible" by Lety Paulson. 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 Dr Newsome would sign off on the form only if the patient is able to pass a national van truck driver's test. She has scheduled it for tomorrow and her friend/helper Marija will drive her there. Social History - Living Situation Living arrangement: Assisted living Living Situation: With caregiver(s) Support System: Her son/DPOA Zhang Titus lives nearby with his and two children and is closely involved in her care. She has two grandchildren: 13 yr old girl and 10 yr old boy. Her second son lives in [place] and is unmarried. She has not driven recently but is going tomorrow for a driving test to renew her license. Marija, a former student, and now a friend/helper, drives her place and runs erran ds for and with her. It is unclear if she is paid by the patient, since she wouldn't answer the question directly, but that is likely the situation. PARKER Bunch at [facility], Dr Samm Marin, Pulmonology, [facility], [phone],fax [phone]. Medications/Allergies - Medications Home Medications: Ambulatory Orders Medication Instructions Recorded Confirmed Cholecalciferol (Vitamin D3) 2,000 units PO DAILY 02/04/17 12/10/18 [Vitamin D3] Ipratropium/Albuterol [Duoneb] 3 ml NEB Q4H PRN 02/04/17 12/10/18 Mometasone/Formoterol [Dulera 100 2 puffs INH BID 02/04/17 12/10/18 Mcg/5 Mcg Inhaler] Trazodone HCl 50 mg PO QPM 02/04/17 12/10/18 diphenhydrAMINE [Benadryl] 50 mg PO QPM PRN 02/04/17 12/10/18 Escitalopram [Lexapro] 10 mg PO DAILY 02/19/17 12/10/18 Albuterol Sulfate [Proair Hfa 2 puffs INH Q4H PRN 09/29/17 12/10/18 Inhaler] Loperamide [Imodium] 2 - 4 mg PO PRN PRN MDD NTE 6 tabs 09/29/17 12/10/18 in 24 hours Acetaminophen [Tylenol] 650 mg PO Q8H PRN 01/30/18 12/10/18 Furosemide 40 mg PO DAILY 01/30/18 12/10/18 Ipratropium Wal[place] 2 sprays OMID Q8H PRN 01/30/18 12/10/18 Lidocaine Patch 5% [Lidoderm Patch] 1 each TOP DAILY PRN 01/30/18 12/10/18 Multivitamin [Theragran] 1 each PO DAILY 01/30/18 12/10/18 Saccharomyces Boulardii [Florastor] 250 mg PO DAILY 01/30/18 12/10/18 Triamcinolone 0.1% Cream [Kenalog 1 applic TOP BID 01/30/18 12/10/18 0.1% Cream] Diphenoxylate/Atropine [Lomotil] 1 tab PO TID PRN #30 tablet 02/05/18 12/10/18 Magnesium Oxide [Mag Ox] 400 mg PO BIDWM tablet 02/05/18 12/10/18 Ambrisentan [Letairis] 10 mg PO DAILY 09/29/18 12/10/18 Diclofenac Sodium/Misoprostol 1 tab PO DAILY 09/29/18 12/10/18 [Diclofenac-Misoprost 50-200 Tb] Lovastatin 40 mg PO QPM 09/29/18 12/10/18 Omeprazole 40 mg PO DAILY 09/29/18 12/10/18 Oxycodone HCl 10 mg PO Q4H 09/29/18 12/10/18 Sildenafil Citrate [Sildenafil] 20 mg PO TID 09/29/18 12/10/18 Spironolactone 25 mg PO DAILY 09/29/18 12/10/18 Tiotropium Waldo [Spiriva 2 inh PO DAILY 09/29/18 12/10/18 Respimat] Bismuth Subsalicylate [[place] 15 ml PO DAILY PRN 10/20/18 12/10/18 Bismuth] Magnesium Hydroxide [Milk of 30 ml PO DAILY PRN 10/20/18 12/10/18 Magnesia] Oxymetazoline HCl [Afrin] 2 spray OMID BID PRN MDD 2 days on 10/20/18 12/10/18 and 2 days off Potassium Chloride [K-Dur] 20 meq PO DAILY MDD with meals 12/10/18 12/10/18 - Allergies Allergies/Adverse Reactions: Allergies Allergy/AdvReac Type Severity Reaction Status Date / Time Sulfa (Sulfonamide Allergy Mild Rash Verified 08/20/18 13:13 Antibiotics) Review of Systems - Constitutional Constitutional: reports: Fatigue, Weakness, Weight stable (113.4 lbs 12/10/18. She ranges 113-115 lbs. Non-edemic weight range seems to be 110-114 lbs.) - Eyes Eyes: reports: Vision loss - Ears, Nose & Throat Ears, Nose & Throat: reports: Nasal pain (dryness in nostrils from incrased oxygen usage; ointment from [employer] has helped), Other (cerumen impaction) - Cardiovascular Cardiovascular: reports: Exertional dyspnea, Decr. exercise tolerance - Respiratory Respiratory: reports: SOB at rest, SOB with exertion - Gastrointestinal Gastrointestinal: denies: Constipation, Diarrhea - Genitourinary Genitourinary: denies: Dysuria, Incontinence - Musculoskeletal Musculoskeletal: reports: Back pain (chronic LBP), Assistive devices - Psychiatric Psychiatric: reports: Depression, Anxiety - Hematologic/Lymphatic Hematologic/Lymphatic: reports: Anemia (iron deficiency) Physical Exam - Vital Signs Temperature: 97.3 F Pulse Rate: 60 O2 Saturation: 95 (4L O2) Blood Pressure: 146/73 - Physical Exam General Appearance: positive: No acute distress, Alert Eyes Bilateral: positive: No lid inflammation, Conjunctivae nml, No scleral icterus ENT: positive: No signs of dehydration, Dry mucous membranes (in nostrils from increased O2; improved with application of non-petroleum ointment) Neck: positive: Trachea midline Cardiovascular: positive: Regular rate & rhythm, No murmur, No gallop Respiratory: positive: Diminished throughout (almost no breath sounds/no air movement) Skin: positive: No symptoms Extremities: positive: No pedal edema (None on right foot; 1+ on left foot) Neurologic/Psychiatric: positive: Oriented x3, Mood/affect nml Palliative Care - POLST Patient has POLST: Yes POLST Status: DNR, Selective Treatment Performance Status: SOA and fatigue continue to worsen since hospitalization and pneumothorax. She remains on 4L/min oxygen, sometimes 6L. Previous usage was 2L/min Ambulates with wheelchair. Continues PT 2x/week but admits she is not walking as much as she should, or doing other "homework") Sleeps more and longer No cognitive deficits - Palliative Care Discussion: Patient wants to talk about what to expect as she approached end of life, so we discussed that in terms of COPD and pulmonary arterial hypertension, with increasing fatigue, tiredness, increased sleep. I provided education and normalization of her increased need for sleep throughout the day, and her inability to activities and undertake things that she has previously been able to do. We discussed treating her energy and abilities in the same way as a savings account, and budgeting. She admitted this gave her some relief, and made her feel better about herself, and less judgemental about what she "can't" or "isn't" doing. As previously discussed, she was given a 2-[address] Marin[address] She wants to continue Letairis ($100k/yr) for improvement of her quality of life in the time she has left. She wants to be treated for reversible conditions. She doesn't want intubation. 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 She is taking the national van truck driver's test tomorrow, and if she passes, her PCP will approve the necessary forms. As she has said previously, her "bucket list" is now pretty short, and she wants to spend as much time as she can with her sons and her two grandchildren. Impression and Recommendations - Palliative Care Impression: 78-year-old female, long-time resident of [facility], with end- stage COPD and pulmonary arterial HTN. She has worsening SOA, fatigue, debility since hospitalization in October for COPD exacerbation and pneumothorax. [facility] in [place] manages her opioid meds for her chronic back pain. Palliative Care will provide support and monitoring, with eventual transition to Hospice when appropriate. Recommendations/Counseling Done: Pulmonary arterial hypertension: Diagnosed December 2017. Followed by flat surfacer jewel Dr Marin of [facility] in [place]. She has been on Letairis ($100k/yr) and sildenafil since March 2018. COPD exacerbation / pneumothorax: Chronic dyspnea worse since hos pital/pneumothorax; now 4L O2 per hour at rest, 6L with exertion. Limited functionality, no longer ambulatory with walker. Continue Duonebs/nebulizer prn, Dulera, Spiriva daily and ProAir Respiclick/albuterol as needed. Chronic pain: Managed by PARKER Parsons of [facility] since August. She just DC'd long-acting Oxycontin and changed Oxycodone 10mg to Q4h rs instead of TID. Also diclofenac/misoprost daily for joint pain and Tylenol as needed. CHF and [id number] lower extremity edema: Edema improved: none on RLE, 1+ on LLE. Weight in target range (113.4 lbs) Continue compression, elevation, Lasix 40 mg daily, potassium 20meq, spironolactone. Cerumen impaction: Use her existing ear impaction drops: 5 drops each ear at bedtime, then gauze to retain drops in ears. Do this 4 nights. On 5th night apply the drops, then rhen flush with warm saline or distilled water with a 60 cc syringe (or equivalent). If results are not satisfactory, follow up with PCP clinic. Dry nostrils: Secondary to increased oxygen flow via nasal cannula (4-6L/min). Continue to apply non-petroleum ointment obtained from oxygen supplier ([facility]). Advanced care planning: POLST is DNR and selective treatment. Patient wants no intubation but watns selective treatment. She has been given a prognosis of between 2 to [address] Marin of [facility] in [place]. Follow up as needed. Time Spent: 65 minutes were spent with more than 50% of the time spent on counseling, education, providing anticipatory guidance, and coordination of care.
== END 2018-12-10 16:57 | disposition home or self-care (01) ==
LOC: PC 16:56
PROVIDERS: ATTEND Nurse Practitioner
DX: Z51.5 Encounter for palliative care (principal); J43.2 Centrilobular emphysema; I27.21 Secondary pulmonary arterial hypertension; J96.10 Chronic respiratory failure, unspecified whether with hypoxia or hypercapnia; G89.29 Other chronic pain; M54.9 Dorsalgia, unspecified; M48.00 Spinal stenosis, site unspecified; H61.23 Impacted cerumen, bilateral; I11.0 Hypertensive heart disease with heart failure; I50.30 Unspecified diastolic (congestive) heart failure; F11.20 Opioid dependence, uncomplicated; D50.9 Iron deficiency anemia, unspecified; K21.9 Gastro-esophageal reflux disease without esophagitis; F41.9 Anxiety disorder, unspecified; F32.9 Major depressive disorder, single episode, unspecified; M19.90 Unspecified osteoarthritis, unspecified site; F10.11 Alcohol abuse, in remission; R53.83 Other fatigue; J34.89 Other specified disorders of nose and nasal sinuses; Z66 Do not resuscitate; Z79.51 Long term (current) use of inhaled steroids; Z87.891 Personal history of nicotine dependence

== ENCOUNTER 2019-02-25 09:50 | Outpatient (CLI) | payer MEDICARE, OTHER ==
--- NOTE | 2019-02-25 16:50 | CONSULTATION NOTE ---
Palliative Care Follow Up - Referral Referring Provider: Dr Newsome Time of Visit: Sat02/25/2019. 9:50 - 10:35 Referral setting: Assisted living ([facility]) - Information Sources Records reviewed: Previous records reviewed History/Review of Systems obtained from: Patient Exam limitations: No limitations - History of Present Illness Update Brief HPI Update: 78-year-old female, living at [facility] for 7 years, with end- stage COPD and pulmonary arterial HTN, hospitalized most recently in October for COPD exacerbation and pneumothorax, with continued slow, steady decline. half-way chronic pain which is being managed by [facility] pain clinic in [facility], [phone]. Referred to palliative care for advanced care planning and because additional support resources are required by the NH facility due to advancing respiratory disease. Medical history: Pulmonary arterial HTN, centrilobular emphysema; endstage COPD; chronic respiratory failure; pulmonary fibrosis; diastolic CHF with normal LV systolic function, EF 65%; HTN; chronic pain, opioid dependency managed by pain clinic; HLD; iron deficiency anemia; GERD; depression and anxiety; osteoarthritis; h/o etoh abuse; former smoker 100 pack years, Patient had an ablation procedure done about a month ago at the [facility] for chronic, worsening back pain. She reports pain is up and down; some days it's ok, other days excruciating. The ablation was supposed show improvement after a month. Her next pain clinic appointment is in one month, for opioid scripts. I suggested she contact the [facility] clinic and to see if she can get an earlier appointment. Also suggested and discussed meditation and mindfulness modalities for pain control. She had not considered this in relation to helping with pain. She is interested, especially since her son regularly meditates. Her chronic SOA has worsened. She's on 6L O2 now, instead of 4L, during waking hours. At night she is on 4L She has also gained weight. Previous baseline was 110-115 lbs. She's been 116-119 up to this point. Today she is 121.2 lbs. She does say she eats well, doesn't know if her eating is contributing to weight gain. No edema on ankles; mild edema on feet, that worsens as the day progresses. Encouraged elevation. Diminished lungs sounds, mild crackles RLL. She exercises less these days due to SOA being worse, as well as pain. Is discouraged about not being able to get out of the facility easily, due to her high need for oxygen and the impracticality of the amount of cannisters she requires. Portables only go up to 4L. She is researching online for a portable model that could accommodate high O2 needs. [facility] at [facility] suggested she try OT for breath therapy/exercises, but patient is not interested. Social History - Living Situation Living arrangement: Assisted living Living Situation: With caregiver(s) Support System: Her son/DPOA Zhang Tiuts lives nearby with his and two children and is closely involved in her care. She has two grandchildren: 13 yr old girl and 10 yr old boy. Her second son lives in [place] and is unmarried. Marija, a former student, and now a friend/helper, drives her places and runs errands for and with her. PARKER Bunch at [facility], Dr Samm Marin, Pulmonology, [facility], ph [phone],fax [phone]. Medications/Allergies - Medications Home Medications: Ambulatory Orders Medication Instructions Recorded Confirmed Cholecalciferol (Vitamin D3) 2,000 units PO DAILY 02/04/17 02/25/19 [Vitamin D3] Ipratropium/Albuterol [Duoneb] 3 ml NEB Q4H PRN 02/04/17 02/25/19 Mometasone/Formoterol [Dulera 100 2 puffs INH BID 02/04/17 02/25/19 Mcg/5 Mcg Inhaler] Trazodone HCl 50 mg PO QPM 02/04/17 02/25/19 diphenhydrAMINE [Benadryl] 50 mg PO QPM PRN 02/04/17 02/25/19 Escitalopram [Lexapro] 10 mg PO DAILY 02/19/17 02/25/19 Albuterol Sulfate [Proair Hfa 2 puffs INH Q4H PRN 09/29/17 02/25/19 Inhaler] Loperamide [Imodium] 2 - 4 mg PO PRN PRN MDD NTE 6 tabs 09/29/17 02/25/19 in 24 hours Acetaminophen [Tylenol] 650 mg PO Q8H PRN 01/30/18 02/25/19 Furosemide 40 mg PO DAILY 01/30/18 02/25/19 Ipratropium [place] 2 sprays OMID Q8H PRN 01/30/18 02/25/19 Multivitamin [Theragran] 1 each PO DAILY 01/30/18 02/25/19 Saccharomyces Boulardii [Florastor] 250 mg PO DAILY 01/30/18 02/25/19 Triamcinolone 0.1% Cream [Kenalog 1 applic TOP BID 01/30/18 02/25/19 0.1% Cream] Diphenoxylate/Atropine [Lomotil] 1 tab PO TID PRN #30 tablet 02/05/18 02/25/19 Magnesium Oxide [Mag Ox] 400 mg PO BIDWM tablet 02/05/18 02/25/19 Ambrisentan [Letairis] 10 mg PO DAILY 09/29/18 02/25/19 Diclofenac Sodium/Misoprostol 1 tab PO DAILY 09/29/18 02/25/19 [Diclofenac-Misoprost 50-200 Tb] Lovastatin 40 mg PO QPM 09/29/18 02/25/19 Omeprazole 40 mg PO DAILY 09/29/18 02/25/19 Oxycodone HCl 10 mg PO Q3H 09/29/18 02/25/19 Sildenafil Citrate [Sildenafil] 20 mg PO TID 09/29/18 02/25/19 Spironolactone 25 mg PO DAILY 09/29/18 02/25/19 Tiotropium [place] [Spiriva 2 inh PO DAILY 09/29/18 02/25/19 Respimat] Bismuth Subsalicylate [[place] 15 ml PO DAILY PRN 10/20/18 02/25/19 Bismuth] Magnesium Hydroxide [Milk of 30 ml PO DAILY PRN 10/20/18 02/25/19 Magnesia] Oxymetazoline HCl [Afrin] 2 spray OMID BID PRN MDD 2 days on 10/20/18 02/25/19 and 2 days off Potassium Chloride [K-Dur] 20 meq PO DAILY MDD with meals 12/10/18 02/25/19 Furosemide 40 mg PO BID MDD for 5 days only, 02/25/19 02/25/19 then 40 again Lidocaine Cream 2.5 1 ea TOP QID 02/25/19 - Allergies Allergies/Adverse Reactions: Allergies Allergy/AdvReac Type Severity Reaction Status Date / Time Sulfa (Sulfonamide Allergy Mild Rash Verified 08/20/18 13:13 Antibiotics) Review of Systems - Constitutional Constitutional: reports: Fatigue, Weight gain (121.2 lbs. Normal range 110-115 lbs. In January it's been 116-119 lbs, now up to 121 lbs.). denies: Poor appetite - Eyes Eyes: reports: Vision loss - Cardiovascular Cardiovascular: reports: Edema (feet), Exertional dyspnea, Decr. exercise tolerance - Respiratory Respiratory: reports: Cough (chronic), Sputum production, SOB at rest, SOB with exertion - Gastrointestinal Gastrointestinal: reports: Good appetite. denies: Constipation, Diarrhea - Genitourinary Genitourinary: denies: Incontinence - Musculoskeletal Musculoskeletal: reports: Back pain (chronic, sees pain clinic. Has scoliosis, stenosis (pt reported), arthritis) - Other Findings Other Findings: Limited ROS Physical Exam - Vital Signs Temperature: 96.9 F Pulse Rate: 63 O2 Saturation: 99 Blood Pressure: 119/64 - Physical Exam General Appearance: positive: No acute distress, Alert Eyes Bilateral: positive: Normal inspection ENT: positive: No signs of dehydration Neck: positive: Trachea midline Cardiovascular: positive: Regular rate & rhythm Respiratory: positive: Chest non-tender, No respiratory distress, Diminished throughout, Wheezes, Rales (fine crackles RLL) Skin: positive: No symptoms Extremities: positive: Pedal edema (chronic, worsens as day progresses. Looks good today.), Other (Wears compression hose. Encouraged her to elevate while sitting at home) Neurologic/Psychiatric: positive: Oriented x3, Mood/affect nml Palliative Care - POLST Patient has POLST: Yes POLST Status: DNR, Selective Treatment Pain: Pain worsening (in low back. Ablation procedure has not improved pain), Location (low back) Dyspnea: Severe (7-10) Anorexia: None Performance Status: Still works with PT Less ambulatory, goes out less from her room because of high volume O2 needs (now 6L) - Palliative Care Discussion: Patient is going to [facility] to manage her chronic back pain. The most recent treatment, ablation, has not improved it. Lidocaine cream is not helping. She is on Oxycodone Q3h PRN. I inquired if she has ever tried medication and mindfulness techniques for pain control. She said she hadn't and no one had ever suggested this but she is interested. Her 49-year-old son meditates daily, and she thinks she could ask him about it. He has follicular lymphoma and has been getting chemotherapy regularly for 5 years. Provided education on researching online and how to find local groups. We also discussed pros and cons of starting OT for breath therapy and exercises. I provided a few very simple and easy exercises for deep breathing which she can try out on her own. She was grateful for the suggestions about meditation and breathing exercises. Impression and Recommendations - Palliative Care Impression: 78-year-old female, long-time resident of [facility], with end- stage COPD and pulmonary arterial HTN. SOa continues to decline and she's using 6L/min oxygen. She has gained weight, now 121 lbs. She agrees to plan for a temporary increase in diuretic. Pain medications and modalities are being managed by [facility]. Patient is interested in looking into meditation and mindfulness therapy for pain management. Palliative Care will provide support and monitoring, with eventual transition to Hospice when appropriate. Recommendations/Counseling Done: Chronic pain: Pain meds managed by PARKER Parsons of [facility] since August. Oxycodone has been increased to 10mg Q3H prn. Also has diclofenac gel for joints and Tylenol as needed. She is using a lidocaine 2.5% cream on her back, but reports no improvement with it or the ablation. She will do some research on local meditation/mindfulness sessions in this area. CHF and [id number] lower extremity edema: Patient has gained weight, now 121 lbs. Baseline range is 110-115 lbs. Increase Lasix to 40 mg BID x 5 days, then back down to 40mg daily. Continue potassium 20meq and spironolactone. In October her BMP labs were normal. Patient wears compression hose, LEs look good, feet are not edemic. She reports pedal edema increases as days go on, so encouraged elevation throughout the day, continue compression. COPD and Pulmonary fibrosis: She's not using Duonebs, so removed it from her med list. Continue Dulera PRN, albuterol PRN, ipratropium PRN, and Spiriva/tiotropium routine. Pulmonary arterial hypertension: Continue Letairis ($100k/yr) and sildenafil. Managed by desulphurizer operator Dr Marin of [facility] in [place]. Advanced care planning: POLST is DNR and selective treatment. Patient wants no intubation but wants selective treatment. She has been given a prognosis of between 2 to [address] Marin of [facility] in [place]. Follow up next week about SOA and increased furosemide. Follow up visit in 2 months and as needed. Time Spent: 45 minutes were spent with more than 50% of the time spent on counseling, education, and coordination of care.
== END 2019-02-25 09:51 | disposition home or self-care (01) ==
LOC: PC 09:50
PROVIDERS: ATTEND Nurse Practitioner
DX: Z51.5 Encounter for palliative care (principal); G89.29 Other chronic pain; M41.9 Scoliosis, unspecified; M48.00 Spinal stenosis, site unspecified; M47.9 Spondylosis, unspecified; I11.0 Hypertensive heart disease with heart failure; I50.32 Chronic diastolic (congestive) heart failure; R63.5 Abnormal weight gain; J43.2 Centrilobular emphysema; J84.10 Pulmonary fibrosis, unspecified; J96.10 Chronic respiratory failure, unspecified whether with hypoxia or hypercapnia; I27.21 Secondary pulmonary arterial hypertension; F11.20 Opioid dependence, uncomplicated; M19.90 Unspecified osteoarthritis, unspecified site; Z87.891 Personal history of nicotine dependence; Z99.81 Dependence on supplemental oxygen; Z66 Do not resuscitate; Z79.899 Other long term (current) drug therapy

== ENCOUNTER 2019-03-18 12:35 | Outpatient (CLI) | payer MEDICARE, OTHER ==
--- NOTE | 2019-03-18 19:46 | CONSULTATION NOTE ---
Palliative Care Follow Up - Referral Referring Provider: Dr Newsome Time of Visit: Sat03/18/2019. 12:35 - 13:25 Referral setting: Assisted living ([facility]) - Information Sources Records reviewed: RN notes reviewed, Previous records reviewed History/Review of Systems obtained from: Patient, Nursing Exam limitations: No limitations - History of Present Illness Update Brief HPI Update: 78-year-old female, living at [facility] for 7 years, with continued slow, steady decline and worsening SOA, secondary to end-stage COPD and pulmonary arterial HTN. Her most recent hospitalization was October 2018 for COPD exacerbation and pneumothorax. Medical history: Pulmonary arterial HTN, centrilobular emphysema; endstage COPD; chronic respiratory failure; pulmonary fibrosis; diastolic CHF with normal LV systolic function, EF 65%; HTN; chronic pain, opioid dependency managed by pain clinic; HLD; iron deficiency anemia; GERD; depression and anxiety; osteoarthritis; h/o etoh abuse; former smoker 100 pack years, Patient's long-term, chronic pain which is being managed by Adalid Parsons of [facility] pain clinic in [place]. The ablation procedure done in January hasn't relieved her back pain; she will try to get in to see her earlier. She does have an ephraim't already scheduled for April. Patient's weight has been increasing and her SOA has worsened. She has refused trips to the ED, or seeing her PCP. Her weight dropped slightly in early March, when I doubled her Lasix (to 80mg) for 5 days. But it very quickly went back up. She has an ephraim't with Dr Marin on April 09. She agreed to schedule a visit with her PCP before that. In the meantime, we agreed on another short-term increase of Lasix. Patient continues to spend most of her time in her apartment due to her SOA and greatly increased O2 needs (6L). It's taxing to have to transport so many cannisters when she leaves the facility, so she stays here. She reports her cough is at baseline, recently she coughed up pinking-bluish phlegm and was quite concerned; then she read that this is a known occurrence with PAH (the discoloration comes from trauma to the alveoli), and so she was less concerned. Her phlegm did return to normal, with brownish discoloration Patient was interested in getting more help finding meditation apps online, as an adjunct modality for pain control, which we had discussed in detail at the previous visit. I provided further education on apps how to find them and download. Social History - Living Situation Living arrangement: Assisted living ([facility]) Living Situation: Other (Assisted living) Support System: Her son/WOLF Titus lives nearby with his and two children and is closely involved in her care. She has two grandchildren: 13 yr old girl and 10 yr old boy. Her second son lives in [place] and is unmarried. Marija, a former student, and now a friend/helper, drives her places and runs errands for and with her. Adalid Parsons, PARKER at [facility], Dr Smam Marin, Pulmonology, [facility], ph [phone],fax [phone] Ric He, [employer] Medications/Allergies - Medications Home Medications: Ambulatory Orders Medication Instructions Recorded Confirmed Cholecalciferol (Vitamin D3) 2,000 units PO DAILY 02/04/17 02/25/19 [Vitamin D3] Ipratropium/Albuterol [Duoneb] 3 ml NEB Q4H PRN 02/04/17 02/25/19 Mometasone/Formoterol [Dulera 100 2 puffs INH BID 02/04/17 02/25/19 Mcg/5 Mcg Inhaler] Trazodone HCl 50 mg PO QPM 02/04/17 02/25/19 diphenhydrAMINE [Benadryl] 50 mg PO QPM PRN 02/04/17 02/25/19 Escitalopram [Lexapro] 10 mg PO DAILY 02/19/17 02/25/19 Albuterol Sulfate [Proair Hfa 2 puffs INH Q4H PRN 09/29/17 02/25/19 Inhaler] Loperamide [Imodium] 2 - 4 mg PO PRN PRN MDD NTE 6 tabs 09/29/17 02/25/19 in 24 hours Acetaminophen [Tylenol] 650 mg PO Q8H PRN 01/30/18 02/25/19 Furosemide 40 mg PO DAILY 01/30/18 02/25/19 Ipratropium [place] 2 sprays OMID Q8H PRN 01/30/18 02/25/19 Multivitamin [Theragran] 1 each PO DAILY 01/30/18 02/25/19 Saccharomyces Boulardii [Florastor] 250 mg PO DAILY 01/30/18 02/25/19 Triamcinolone 0.1% Cream [Kenalog 1 applic TOP BID 01/30/18 02/25/19 0.1% Cream] Diphenoxylate/Atropine [Lomotil] 1 tab PO TID PRN #30 tablet 02/05/18 02/25/19 Magnesium Oxide [Mag Ox] 400 mg PO BIDWM tablet 02/05/18 02/25/19 Ambrisentan [Letairis] 10 mg PO DAILY 09/29/18 02/25/19 Diclofenac Sodium/Misoprostol 1 tab PO DAILY 09/29/18 02/25/19 [Diclofenac-Misoprost 50-200 Tb] Lovastatin 40 mg PO QPM 09/29/18 02/25/19 Omeprazole 40 mg PO DAILY 09/29/18 02/25/19 Oxycodone HCl 10 mg PO Q3H 09/29/18 02/25/19 Sildenafil Citrate [Sildenafil] 20 mg PO TID 09/29/18 02/25/19 Spironolactone 25 mg PO DAILY 09/29/18 02/25/19 Tiotropium [place] [Spiriva 2 inh PO DAILY 09/29/18 02/25/19 Respimat] Bismuth Subsalicylate [[place] 15 ml PO DAILY PRN 10/20/18 02/25/19 Bismuth] Magnesium Hydroxide [Milk of 30 ml PO DAILY PRN 10/20/18 02/25/19 Magnesia] Oxymetazoline HCl [Afrin] 2 spray OMID BID PRN MDD 2 days on 10/20/18 02/25/19 and 2 days off Potassium Chloride [K-Dur] 20 meq PO DAILY MDD with meals 12/10/18 02/25/19 Furosemide 40 mg PO BID MDD for 7 days only, 02/25/19 02/25/19 then 40 again Lidocaine Cream 2.5 1 ea TOP QID 02/25/19 - Allergies Allergies/Adverse Reactions: Allergies Allergy/AdvReac Type Severity Reaction Status Date / Time Sulfa (Sulfonamide Allergy Mild Rash Verified 08/20/18 13:13 Antibiotics) Review of Systems - Constitutional Constitutional: reports: Fatigue, Weight gain (121.4 lbs. Normal range 110-115 lbs. In January it's been 116-119 lbs, now up to 121 lbs.) - Cardiovascular Cardiovascular: reports: Edema - Respiratory Respiratory: reports: Cough, Sputum production, SOB at rest - Gastrointestinal Gastrointestinal: reports: Abdominal distention (from fluid), Good appetite. denies: Constipation - Genitourinary Genitourinary: denies: Dysuria, Incontinence - Musculoskeletal Musculoskeletal: reports: Assistive devices (walker), Other (scoliosis, stenosis (pt reported), arthritis) - Psychiatric Psychiatric: reports: Depression, Anxiety - Other Findings Other Findings: Limited ROS Physical Exam - Vital Signs Temperature: 96.4 F Pulse Rate: 68 O2 Saturation: 95 (6L) Blood Pressure: 102/47 (cuff) - Physical Exam General Appearance: positive: No acute distress, Alert Eyes Bilateral: positive: Normal inspection ENT: positive: No signs of dehydration Neck: positive: Trachea midline Cardiovascular: positive: Regular rate & rhythm, No murmur Respiratory: positive: Diminished throughout (very). negative: Rales, Rhonchi Abdomen: positive: Soft, Distended Skin: positive: No symptoms Extremities: positive: Pedal edema Neurologic/Psychiatric: positive: Oriented x3, Mood/affect nml Palliative Care - POLST Patient has POLST: Yes POLST Status: DNR, Selective Treatment Pain: Pain unchanged (low back, chronic pain. Managed by [facility] pain clinic. They performed an ablation procedure 2 months ago; she reports no improvement), Comment ( she has been on oxycodone "years and years") Tiredness/Fatigue: Moderate (4-6) Anxiety: Severe (7-10) Anorexia: None Constipation: No, Comment (She has never been constipated in all the years she has taken oxycodone.) Performance Status: Still works with PT 2x week, but doesn't do exercises on her own Declining ambulatory status due to worsening SOA Difficult to leave room and facility due to high volume O2 needs (now 6L), requiring that she pack numerous O2 cannisters with her. The small, portable "backpack" version doesn't supply sufficient O2 for her needs. - Palliative Care Discussion: She continues on Oxycodone Q3h PRN. She will continue to follow up with pain CATERING SOUS CHEF to try to get earlier appointment since ablation didn't help. Assisted her in downloading free meditation apps; she has done some more research into starting meditation as an adjunct pain management method. Previously provided simple deep breathing exercises which she can try out on her own. Patient brings up that her airport screener gave her a 2 year prognosis, but her "cheerleader" title camera operator said 2-5 years. Patient says there are still things she wants to accomplish. She wants to walk again, by herself! She has a bucket list, but feels the reality of her condition worsening. Inquired about her social and emotional support network. Does she have someone to talk with? She says things are good with her family. She feels love, affection and supported by her family (two sons, her daughter in law, 2 grandchildren). The elder son lives nearby, he has a family The younger son lives in [place]. She related that their relationship (the son in [place]) is good now, but for many years it wasn't. Her 2 weeks after her eldest son graduated high school, and then that son left for college. So it was just the patient and her younger son. She had to work, and was focused on goals and what she wanted to accomplish, and he felt neglected and suffered. She also realizes that they weren't able to properly grieve. It took years, but now they are in a good spot. We discussed Palliative Care carbon dioxide operator services, SW psychosocial support network. She does not currently wish for either of these services. She appreciates being able to talk with the CATERING SOUS CHEF She is still doing PT, 2x weekly (for that goal of being able to walk independ ently again) They do walking, bicycling, wall slides. She doesn't practice the exercises on her own, knows that she should, but doesn't. Impression and Recommendations - Palliative Care Impression: 78-year-old female, long-time resident of [facility], with end- stage COPD and pulmonary arterial HTN. SOA continues to decline and she's using 6L/min oxygen. Weight is up around 121 lbs and so we will try a second temporary diuretic increase. Patient has been looking into meditation and mindfulness therapy for pain management. Palliative Care will continue to provide support and monitoring. Recommendations/Counseling Done: Chronic pain: Lifelong, on oxycodone for many years. All the pain meds are managed by PARKER Parsons of [facility]. Oxycodone now at 10mg Q3H prn. Also diclofenac gel, Tylenol PRN, lidocaine 2.5% cream for the back. Abblation didn't work; she wants to get in early to see her CATERING SOUS CHEF before the scheduled April appointent. She continues to look into meditation/mindfulness; she found an ephraim on her mobile, we spent a good amount of time researching apps online; provided education and help with finding and downloading them. CHF and [id number] lower extremity edema: Weight is up around 121 lbs, i t's normally 110-115 lbs, and she hasn't increased her food intake.. Will increase Lasix again, to 40 mg BID x 7 days. This was done earlier in March and she lost a few pounds, didn't notice much improvement in SOA. She will follow up with PCP to see if a stronger diuretic would help. Continue potassium 20meq and spironolactone. Continue compression hose and elevation throughout the day. COPD and Pulmonary fibrosis: Dulera PRN, albuterol PRN, ipratropium PRN, and Spiriva/tiotropium routine. She didn't use nebulizer/DuoNebs. Pulmonary arterial hypertension: Letairis ($100k/yr) and sildenafil. She'll see title camera operator Dr Marin of [facility] in [place] on April 09 Advanced care planning: POLST is DNR and selective treatment. Follow up 3 - 5 weeks and as needed. Time Spent: 50 minutes were spent with more than 50% of the time spent on counseling, education, and coordination of care.
== END 2019-03-18 12:36 | disposition home or self-care (01) ==
LOC: PC 12:35
PROVIDERS: ATTEND Nurse Practitioner
DX: Z51.5 Encounter for palliative care (principal); J84.10 Pulmonary fibrosis, unspecified; J43.2 Centrilobular emphysema; I27.21 Secondary pulmonary arterial hypertension; J96.10 Chronic respiratory failure, unspecified whether with hypoxia or hypercapnia; Z99.81 Dependence on supplemental oxygen; R63.5 Abnormal weight gain; G89.29 Other chronic pain; I11.0 Hypertensive heart disease with heart failure; I50.32 Chronic diastolic (congestive) heart failure; M54.5 Low back pain; M41.9 Scoliosis, unspecified; M19.90 Unspecified osteoarthritis, unspecified site; F11.20 Opioid dependence, uncomplicated; Z79.899 Other long term (current) drug therapy; Z66 Do not resuscitate; Z87.891 Personal history of nicotine dependence

== ENCOUNTER 2019-03-27 08:00 | Outpatient (CLI) | payer MEDICARE, OTHER ==
[2019-03-27 13:52] LABS: BASOPHILS % (AUTO) 0.7 %; EOSINOPHILS # (AUTO) 0.2 10^3/uL (0.0-0.7); EOSINOPHILS % (AUTO) 4.5 %; HGB - HEMOGLOBIN 11.3 g/dL (12.0-16.0); LYMPHOCYTES # (AUTO) 0.7 10^3/uL (1.5-3.5); LYMPHOCYTES % (AUTO) 12.8 %; MEAN CORPUSCULAR HEMOGLOBIN 30.8 pg (27.0-31.0); MEAN CORPUSCULAR HGB CONC 33.3 g/dL (32.0-36.0); MEAN CORPUSCULAR VOLUME 92.5 fL (81.0-99.0); MEAN PLATELET VOLUME 7.9 fL (7.9-10.8); MONOCYTES # (AUTO) 0.5 10^3/uL (0.0-1.0); MONOCYTES % (AUTO) 9.9 %; NEUTROPHILS # (AUTO) 3.9 10^3/uL (1.5-6.6); NEUTROPHILS % (AUTO) 72.1 %; PLT - PLATELET COUNT 111 10^3/uL (130-450); RED BLOOD COUNT 3.67 10^6/uL (4.20-5.40); RED CELL DISTRIBUTION WIDTH 15.5 % (12.0-15.0); WHITE BLOOD COUNT 5.4 x10^3/uL (4.8-10.8)
[2019-03-27 14:08] LABS: ALBUMIN 3.9 g/dL (3.2-5.5); ALBUMIN/GLOBULIN RATIO 1.3 (1.0-2.2); ALKALINE PHOSPHATASE 47 IU/L (42-121); ALT ALANINE AMINOTRANSFERASE 15 IU/L (10-60); AST ASPARTATE AMINOTRANSFERASE 23 IU/L (10-42); BILIRUBIN,TOTAL 0.5 mg/dL (0.2-1.0); BUN - BLOOD UREA NITROGEN 28 mg/dL (6-20); CALCIUM 9.2 mg/dL (8.5-10.3); CARBON DIOXIDE - CO2 36 mmol/L (21-32); CHLORIDE 91 mmol/L (101-111); CHOL/HDL RATIO 2.3 (<4.4); CHOLESTEROL 169 mg/dL; CREATININE 1.1 mg/dL (0.4-1.0); GFR - MDRD 48 (>89); GLUCOSE 104 mg/dL (70-100); HDL CHOLESTEROL 74 mg/dL; LDL CHOLESTEROL,CALCULATED 86 mg/dL; LDL/HDL RATIO 1.2 (<4.4); SODIUM 137 mmol/L (135-145); TOTAL PROTEIN 6.9 g/dL (6.7-8.2); VLDL CHOLESTEROL 9 mg/dL
[2019-03-27 14:14] LABS: HB2 TOTAL 11.9 g/dL; HEMOGLOBIN A1C 0.42 g/dL; HEMOGLOBIN A1C % 5.4 % (4.6-6.2)
== END 2019-03-27 23:59 | disposition home or self-care (01) ==
LOC: LAB.WCP 08:00
PROVIDERS: ATTEND Family Medicine
DX: I11.0 Hypertensive heart disease with heart failure (principal); I50.810 Right heart failure, unspecified; E78.5 Hyperlipidemia, unspecified; R73.01 Impaired fasting glucose; I50.9 Heart failure, unspecified; H53.9 Unspecified visual disturbance; R29.6 Repeated falls; J44.9 Chronic obstructive pulmonary disease, unspecified; A31.0 Pulmonary mycobacterial infection; J43.8 Other emphysema; I27.20 Pulmonary hypertension, unspecified
CPT/HCPCS: 36415; 80053; 80061; 83036; 83721; 83880; 84443; 85025

== ENCOUNTER 2019-04-02 20:02 | Outpatient (CLI) | payer MEDICARE, OTHER ==
--- NOTE | 2019-04-02 20:50 | CONSULTATION NOTE ---
Palliative Care Follow Up - Referral Referring Provider: Dr Newsome Time of Visit: Oneal 04/02/2019. 15:30 - 16:30 Referral setting: Assisted living ([facility]) Referral Reason: SOA, weight gain - Information Sources Records reviewed: RN notes reviewed, Previous records reviewed History/Review of Systems obtained from: Patient, Nursing, Other (procurement services manager) Exam limitations: No limitations - History of Present Illness Update Brief HPI Update: 78-year-old woman living at [facility] for 7 years, with continued slow, steady decline and worsening SOA, secondary to end-stage COPD and pulmonary arterial HTN. Her last hospitalization was October 2018 for COPD exacerbation and pneumothorax. Her long-term, chronic pain is managed by Adalid Parsons of [facility] pain clinic, [place]. Medical history: Pulmonary arterial HTN, centrilobular emphysema; endstage COPD; chronic respiratory failure; pulmonary fibrosis; diastolic CHF with normal LV systolic function, EF 65%; HTN; chronic pain, opioid dependency managed by pain clinic; HLD; iron deficiency anemia; GERD; depression and anxiety; osteoarthritis; h/o etoh abuse; former smoker 100 pack years, Patient's SOA and weight has been increasing, not due to any change in diet or oral intake. She reports it's stable, but at a new, worse baseline. Palliative Care counselled patient to check with PCP about switching diuretics from furosemide to torsemide to see if it improves. She switched to torsemide 20mg daily 1 week ago, today's palliative care visit is requested by PCP for follow up. Patient reports no improvement in SOA or weight increase. Labs done last week. CKD III, with GFR of 49. Also low platelets (111). Follow up labs are scheduled by PCP for 04/07 to check for renal function changes from torsemide, and to recheck platelets. Patient has a number of medical appointments coming up: Dr Marin, slasher operator on 04/09. Eye surgeon 04/14 for R cataract. She has already had cataract surgery on eye. Pain clinic on 04/16. Patient reports SOB with any exertion, no SOB when immobile. Social History - Living Situation Living arrangement: Assisted living ([facility]) Living Situation: With caregiver(s) Support System: Her son/DPOA Zhang Titus lives nearby with his and two children and is closely involved in her care. She has two grandchildren: 13 yr old girl and 10 yr old boy. Her second son lives in [place] and is unmarried. Adalid Parsons, PARKER at [facility], Dr Samm aMrin, Pulmonology, [facility], [phone],fax [phone] Ric He, Patient Clerical Assistant Medications/Allergies - Medications Home Medications: Ambulatory Orders Medication Instructions Recorded Confirmed Cholecalciferol (Vitamin D3) 2,000 units PO DAILY 02/04/17 04/03/19 [Vitamin D3] Ipratropium/Albuterol [Duoneb] 3 ml NEB Q4H PRN 02/04/17 02/25/19 Mometasone/Formoterol [Dulera 100 2 puffs INH BID 02/04/17 04/03/19 Mcg/5 Mcg Inhaler] Trazodone HCl 50 mg PO QPM 02/04/17 04/03/19 diphenhydrAMINE [Benadryl] 50 mg PO QPM PRN 02/04/17 04/03/19 Escitalopram [Lexapro] 10 mg PO DAILY 02/19/17 04/03/19 Albuterol Sulfate [Proair Hfa 2 puffs INH Q4H PRN 09/29/17 04/03/19 Inhaler] Loperamide [Imodium] 2 - 4 mg PO PRN PRN MDD NTE 6 tabs 09/29/17 04/03/19 in 24 hours Acetaminophen [Tylenol] 650 mg PO Q8H PRN 01/30/18 04/03/19 Ipratropium [place] 2 sprays OMID Q8H PRN 01/30/18 04/03/19 Multivitamin [Theragran] 1 each PO DAILY 01/30/18 02/25/19 Saccharomyces Boulardii [Florastor] 250 mg PO DAILY 01/30/18 04/03/19 Triamcinolone 0.1% Cream [Kenalog 1 applic TOP BID 01/30/18 04/03/19 0.1% Cream] Diphenoxylate/Atropine [Lomotil] 1 tab PO TID PRN #30 tablet 02/05/18 04/03/19 Magnesium Oxide [Mag Ox] 400 mg PO BIDWM tablet 02/05/18 04/03/19 Ambrisentan [Letairis] 10 mg PO DAILY 09/29/18 04/03/19 Diclofenac Sodium/Misoprostol 1 tab PO DAILY 09/29/18 04/03/19 [Diclofenac-Misoprost 50-200 Tb] Lovastatin 40 mg PO QPM 09/29/18 04/03/19 Omeprazole 40 mg PO DAILY 09/29/18 04/03/19 Oxycodone HCl 10 mg PO .6X MDD 6 doses per day 09/29/18 04/03/19 Sildenafil Citrate [Sildenafil] 20 mg PO TID 09/29/18 04/03/19 Spironolactone 25 mg PO DAILY 09/29/18 04/03/19 Tiotropium [place] [Spiriva 2 inh PO DAILY 09/29/18 04/03/19 Respimat] Bismuth Subsalicylate [[place] 15 ml PO DAILY PRN 10/20/18 04/03/19 Bismuth] Magnesium Hydroxide [Milk of 30 ml PO DAILY PRN 10/20/18 04/03/19 Magnesia] Oxymetazoline HCl [Afrin] 2 spray OMID BID PRN MDD 2 days on 10/20/18 04/03/19 and 2 days off Potassium Chloride [K-Dur] 20 meq PO DAILY MDD with meals 12/10/18 04/03/19 Lidocaine Cream 2.5 1 ea TOP QID 02/25/19 Albuterol Sulfate [Proair 2 puffs PO Q4H PRN 04/03/19 04/03/19 Respiclick] Carbamide Peroxide Otic Drop 5 drops EACHEAR DAILY PRN MDD For 04/03/19 04/03/19 [Debrox Otic Drops] 5 days then flush Docusate Sodium 100 mg PO DAILY PRN 04/03/19 04/03/19 Lidocaine Patch 5% [Lidoderm Patch] 1 patch TOP DAILY PRN MDD 12 hrs 04/03/19 04/03/19 on, 12 hrs off Morphine Sulfate [Ms Contin] 15 mg PO .QHS 04/03/19 04/03/19 Torsemide 20 mg PO DAILY 04/03/19 04/03/19 - Allergies Allergies/Adverse Reactions: Allergies Allergy/AdvReac Type Severity Reaction Status Date / Time Sulfa (Sulfonamide Allergy Mild Rash Verified 08/20/18 13:13 Antibiotics) Review of Systems - Constitutional Constitutional: reports: Fatigue, Weight gain (120.3 lbs 04/02/19. 123 lbs at PCP last week. 121.4 lbs. Normal range 110-115 lbs. In January it was 116-119 lbs.) - Eyes Eyes: reports: Corrective lenses - Ears, Nose & Throat Ears, Nose & Throat: reports: Dentures (permanent, upper and lower), Other (dry nose; nosebleeds) - Cardiovascular Cardiovascular: reports: Edema (but not currently), Exertional dyspnea, Decr. exercise tolerance - Respiratory Respiratory: reports: SOB with exertion. denies: SOB at rest - Gastrointestinal Gastrointestinal: denies: Constipation - Genitourinary Genitourinary: denies: Dysuria, Incontinence - Musculoskeletal Musculoskeletal: reports: Back pain (opioids managed by pain clinic), Assistive devices (walker and wheelchair) - Psychiatric Psychiatric: reports: Depression (on escitalopram) Physical Exam - Vital Signs Temperature: 96.3 F Pulse Rate: 53 O2 Saturation: 95 (6L of O2) Blood Pressure: 100/50 (wrist cuff) - Physical Exam General Appearance: positive: No acute distress, Alert Eyes Bilateral: positive: Normal inspection ENT: positive: No signs of dehydration Neck: positive: Trachea midline Cardiovascular: positive: Regular rate & rhythm, No murmur Respiratory: positive: Chest non-tender, No respiratory distress, Diminished throughout (significantly), Wheezes (expiratory). negative: Rales, Rhonchi Skin: positive: No symptoms Extremities: positive: No pedal edema (wearing compression socks) Neurologic/Psychiatric: positive: Oriented x3, Mood/affect nml Palliative Care - POLST Patient has POLST: Yes POLST Status: DNR, Selective Treatment Pain: Pain unchanged, Comment Tiredness/Fatigue: Mild (1-3) Drowsiness/Sedation: None Constipation: No, Comment (Reports no constipation in all the years she's taken oxycodone) Performance Status: PT 2x week Declining ambulatory status due to worse SOA, now at new lower bseline Feels confined to room due to high volume O2 needs (now 6L), requiring multiple O2 canisters wherever she goes - Palliative Care Discussion: Current opioid regimen: Oxycodone 10mg six times a day, and MSContin 15mg at night (105 MED). She follows up with the pain clinic on 04/16. She complains less of pain today. Has not tried medication or mindfulness, but has ordered a meditation book. An important priority is having her hair done weekly. Her hairdresser is Coni of [employer] on [address]. She goes via [employer]. They've been friends for years. She feels better when her hair is done, and it feels good that she's getting out. Being able to continue doing this every week is very, very important to her. She tried the facility's hairdresser in the past, when she wasn't able to get to [employer]. It wasn't the same, she wasn't happy. Her problem is her high oxygen needs require that she transport multiple caniste rs [facility] won't let her use her W/C, it doesn't work in the salon. So the patient needs to find/hire someone to go with her and manage the O2 canisters. She said she was told by nursing executive the facility would not let her hire private caregivers, or agency caregivers. region manager was out so I spoke with the certified solid waste facility operator, Alannah Spears. It's true the facility policy doesn't permit agency caregivers; there have been problems in the past. They do allow caregivers from [facility]. They would also allow private caregivers, for example, from the [employer] list. They confirmed that the patient could do this, I let her know, directed her to Alannah Spears if she had any questions. What Alannah Spears and the staff report a history of difficult interactions and behaviors from the patient toward staff and caregivers. This has made it difficult and challenging for the patient to retain caregivers, friends, acquaintances to help her. Results - Lab Results Lab results reviewed: Yes Lab and Imaging Results: 03/27/2019: TSH .37 N A1C 5.4 N BNP 128 H CO2 36 H Cr 1.1 H BUN 28 H GFR 48 Gluc 104 WBC 5.4 N Hgb 11.3 L Hct 33.9 L PLT 111 L Impression and Recommendations - Palliative Care Impression: 78-year-old female, long-time resident of [facility], with end- stage COPD and pulmonary arterial HTN. SOA has worsened, seems to be at a new, worse baseline. Usage is 6L/min oxygen. She has gained weight and the diuretic change has not improved the SOA or weight gain. Patient would like to hire a caregiver to help her transport her oxygen canisters so she can go out, get hair done weekly. Recommendations/Counseling Done: Chronic pain: Lifelong, many years on oxycodone. STRAPPER Adalid Jaqueline of [facility] pain clinic manages her pain and opioids. Current regimen is oxycodone 10mg 6x day (0700, 1000, 1300, 1600, 1900, 2200) and MS Contin 15mg QHS. MED is 105. Next appointment is 04/16. Ablation did not help. Have counselled her on meditation, mindfulness, we've researched online apps, she's ordered a meditation book. CHF and [id number] lower extremity edema: Furosemide was stopped by PCP, started torsemide 20mg. No improvement in SOA. Weight is still around 121 lbs, her normal range is 110-115 lbs. Continue compression hose and elevation throughout the day. No pedal edema today. COPD and Pulmonary fibrosis: Dulera PRN, albuterol PRN, ipratropium PRN, and Spiriva/tiotropium routine. Pulmonary arterial hypertension: Letairis ($100k/yr) and sildenafil. She'll see slasher operator Dr Marin of [facility] in [place] on April 09 Advance care planning: POLST is DNR and selective treatment. Immediate goal: Solve the issue of finding helper/caregiver to manage oxygen tanks so she can run errands, etc. In particular, her weekly hair appointments. These is very significant for her, beyond simply having her hair done. procurement services manager (Alannah Spears) confirmed to Palliative Care STRAPPER that private caregiver is ok at the facility, or an agency caregiver from [facility]. Patient is welcome to speak directly to Alannah Spears with questions. Follow up as needed. Time Spent: 60 minutes were spent with more than 50% of the time spent on counseling, education, and coordination of care with facility staff.
== END 2019-04-02 20:03 | disposition home or self-care (01) ==
LOC: PC 20:02
PROVIDERS: ATTEND Nurse Practitioner
DX: Z51.5 Encounter for palliative care (principal); I27.20 Pulmonary hypertension, unspecified; J43.2 Centrilobular emphysema; J96.10 Chronic respiratory failure, unspecified whether with hypoxia or hypercapnia; J84.10 Pulmonary fibrosis, unspecified; I13.10 Hypertensive heart and chronic kidney disease without heart failure, with stage 1 through stage 4 chronic kidney disease, or unspecified chronic kidney disease; N18.3 Chronic kidney disease, stage 3 (moderate); I50.30 Unspecified diastolic (congestive) heart failure; G89.29 Other chronic pain; F11.20 Opioid dependence, uncomplicated; E78.5 Hyperlipidemia, unspecified; D50.9 Iron deficiency anemia, unspecified; K21.9 Gastro-esophageal reflux disease without esophagitis; F32.9 Major depressive disorder, single episode, unspecified; F41.9 Anxiety disorder, unspecified; M19.90 Unspecified osteoarthritis, unspecified site; Z87.891 Personal history of nicotine dependence; F10.11 Alcohol abuse, in remission; Z79.51 Long term (current) use of inhaled steroids; H54.7 Unspecified visual loss; Z66 Do not resuscitate; Z99.81 Dependence on supplemental oxygen

== ENCOUNTER 2019-04-07 08:00 | Outpatient (CLI) | payer MEDICARE, OTHER ==
[2019-04-07 12:29] LABS: BASOPHILS % (AUTO) 0.2 %; EOSINOPHILS # (AUTO) 0.2 10^3/uL (0.0-0.7); EOSINOPHILS % (AUTO) 3.1 %; LYMPHOCYTES # (AUTO) 0.6 10^3/uL (1.5-3.5); LYMPHOCYTES % (AUTO) 9.4 %; MEAN CORPUSCULAR HEMOGLOBIN 30.9 pg (27.0-31.0); MEAN CORPUSCULAR HGB CONC 33.2 g/dL (32.0-36.0); MONOCYTES # (AUTO) 0.6 10^3/uL (0.0-1.0); MONOCYTES % (AUTO) 8.8 %; NEUTROPHILS # (AUTO) 4.9 10^3/uL (1.5-6.6); NEUTROPHILS % (AUTO) 78.5 %; PLT - PLATELET COUNT 117 10^3/uL (130-450); RED BLOOD COUNT 3.57 10^6/uL (4.20-5.40); WHITE BLOOD COUNT 6.3 x10^3/uL (4.8-10.8)
[2019-04-07 13:24] LABS: ALBUMIN 3.8 g/dL (3.2-5.5); ALBUMIN/GLOBULIN RATIO 1.4 (1.0-2.2); BILIRUBIN,TOTAL 0.4 mg/dL (0.2-1.0); CREATININE 1.3 mg/dL (0.4-1.0); TOTAL PROTEIN 6.6 g/dL (6.7-8.2)
== END 2019-04-07 23:59 | disposition home or self-care (01) ==
LOC: LAB.WCP 08:00
PROVIDERS: ATTEND Family Medicine
DX: I10 Essential (primary) hypertension (principal)
CPT/HCPCS: 36415; 80053; 85025

== ENCOUNTER 2019-07-01 13:40 | Outpatient (CLI) | payer MEDICARE, OTHER ==
--- NOTE | 2019-07-01 17:02 | CONSULTATION NOTE ---
Palliative Care Follow Up - Referral Referring Provider: Dr Newsome Time of Visit: Sat07/01/2019. 13:40- 14:55 Referral setting: Assisted living ([facility]) Referral Reason: SOA - Information Sources Records reviewed: RN notes reviewed History/Review of Systems obtained from: Patient, Nursing Exam limitations: No limitations - History of Present Illness Update Brief HPI Update: 78-year-old woman living at [facility], with end-stage COPD and pulmonary arterial HTN, and chronic back pain managed by [facility]. She has worsening SOA, and has been discharged by her first officer as there is nothing further he can do for her Medical history: Pulmonary arterial HTN, centrilobular emphysema; endstage COPD; chronic respiratory failure; pulmonary fibrosis; diastolic CHF with normal LV systolic function, EF 65%; HTN; chronic pain, opioid dependency managed by pain clinic; HLD; iron deficiency anemia; GERD; depression and anxiety; osteoarthritis; h/o etoh abuse; former smoker 100 pack years, Patient has recently seen Dr Marin, pulmonologsit who says there is nothing further he can do to treat her disease. His prognosis is one year or less. He recommends strong support by PCP and Palliative Care. Patient's PCP is resigning at the end of July; she is starting to research for a new PCP. We discussed options and she currently is leaning toward going off [place], possibly to [place]. Patient's chronic back pain has been managed by Adalid Parsons at [facility], who is referring her onward to Leonidas Major MD, in the same pain clinic for further management. Patient has had injections by Dr Major in the past as well as an ablation which patient reports has made her pain worse. She will see Dr Major Sept 4. Her current regimen is hydromorphone 4mg six times daily (0700, 1000, 1300, 1600, 1900, 2200) and MS Contin 15mg QHS. Patient doesn't recall if pain clinic recommended or tried fentanyl or methadone. Facility staff reports that patient may have refused long-acting meds, preferring the short-acting opioids. Patient says she had been on long-acting tablets, doesn't recall if it was MSContin or Oxycontin), it didn't work and so the pain clinic switched her to frequent doses of short-acting opioids. Patient has been using CBD joint gel and CBD 100mg/THC 2mg tincture, neither of which she finds very effective. Patient reports her SOA worsens and she is using her albuterol inhaler much more frequently than recommended. Just going to the bathroom causes her significant SOA. She doesn't use her nebulizer because it "doesn't do anything." Her weight is 123 lbs currently. Her previous baseline was 110-115 lbs. She does have a moist cough and significant rhonci upon auscultation. She has been started on Mucinex and reports that it has thinned her phlegm. Discussed increasing her diuretic, patient appears skeptical that it would help, and it would just make her urinate more often. She has PCP visit tomorrow and will ask about that. She is also following up about fluid on L knee. She continues with Physical Therapy at [facility], 3x/week. "It's what keeps me going." She wants to continue on Letairis (ambrisentan). Its cost is about $11k per month, which precludes her from going on to Hospice. The patient understands this. Social History - Living Situation Living arrangement: Assisted living ([facility], she has been living her 7+ years) Living Situation: With caregiver(s) Support System: The has lived on [facility] since the . Her son/WOLF Titus lives nearby with his and two children and is closely involved in her care. She has two grandchildren: 13 yr old girl and 10 yr old boy. Her second son lives in [facility] and is unmarried. He will be visiting in September. [facility], , Dr Leonidas Major Medications/Allergies - Medications Home Medications: Ambulatory Orders Medication Instructions Recorded Confirmed Cholecalciferol (Vitamin D3) 2,000 units PO DAILY 02/04/17 07/01/19 [Vitamin D3] Mometasone/Formoterol [Dulera 100 2 puffs INH BID 02/04/17 07/01/19 Mcg/5 Mcg Inhaler] Trazodone HCl 50 mg PO QPM 02/04/17 07/01/19 diphenhydrAMINE [Benadryl] 50 mg PO QPM PRN 02/04/17 07/01/19 Escitalopram [Lexapro] 10 mg PO DAILY 02/19/17 07/01/19 Loperamide [Imodium] 2 - 4 mg PO PRN PRN MDD NTE 6 tabs 09/29/17 07/01/19 in 24 hours Acetaminophen [Tylenol] 650 mg PO Q8H PRN 01/30/18 07/01/19 Ipratropium [place] 2 sprays OMID Q8H PRN 01/30/18 07/01/19 Saccharomyces Boulardii [Florastor] 250 mg PO DAILY 01/30/18 07/01/19 Triamcinolone 0.1% Cream [Kenalog 1 applic TOP BID 01/30/18 07/01/19 0.1% Cream] Diphenoxylate/Atropine [Lomotil] 1 tab PO TID PRN #30 tablet 02/05/18 07/01/19 Magnesium Oxide [Mag Ox] 400 mg PO BIDWM tablet 02/05/18 07/01/19 Ambrisentan [Letairis] 10 mg PO DAILY 09/29/18 07/01/19 Diclofenac Sodium/Misoprostol 1 tab PO DAILY 09/29/18 07/01/19 [Diclofenac-Misoprost 50-200 Tb] Lovastatin 40 mg PO QPM 09/29/18 07/01/19 Omeprazole 40 mg PO DAILY 09/29/18 07/01/19 Sildenafil Citrate 20 mg PO TID 09/29/18 07/01/19 Spironolactone 25 mg PO DAILY 09/29/18 07/01/19 Tiotropium [place] [Spiriva 2 inh PO DAILY 09/29/18 07/01/19 Respimat] Bismuth Subsalicylate [[place] 15 ml PO DAILY PRN 10/20/18 07/01/19 Bismuth] Magnesium Hydroxide [Milk of 30 ml PO DAILY PRN 10/20/18 07/01/19 Magnesia] Potassium Chloride [K-Dur] 20 meq PO DAILY MDD with meals 12/10/18 07/01/19 Albuterol Sulfate [Proair 2 puffs PO Q4H PRN 04/03/19 07/01/19 Respiclick] Carbamide Peroxide Otic Drop 5 drops EACHEAR DAILY PRN MDD For 04/03/19 07/01/19 [Debrox Otic Drops] 5 days then flush Docusate Sodium 100 mg PO DAILY PRN 04/03/19 07/01/19 Lidocaine Patch 5% [Lidoderm Patch] 1 patch TOP DAILY PRN MDD 12 hrs 04/03/19 07/01/19 on, 12 hrs off Morphine Sulfate [Ms Contin] 15 mg PO .QHS 04/03/19 07/01/19 Torsemide 20 mg PO DAILY 04/03/19 07/01/19 Guaifenesin [Mucinex] 1 - 2 tab PO BID PRN 07/01/19 07/01/19 Hydromorphone HCl 4 mg PO Q3HR MDD 6 doses per day 07/01/19 07/01/19 Multivit-Min/FA/Lycopen/Lutein 1 tab PO DAILY 07/01/19 07/01/19 [Centrum Silver Men Tablet] Senna [Senokot] 2 tab PO QPM 07/01/19 07/01/19 Sodium Fluoride [Prevident 5000] 1 ea PO PRN 07/01/19 - Allergies Allergies/Adverse Reactions: Allergies Allergy/AdvReac Type Severity Reaction Status Date / Time Sulfa (Sulfonamide Allergy Mild Rash Verified 08/20/18 13:13 Antibiotics) Review of Systems - Constitutional Constitutional: reports: Fatigue, Weight gain (123.5 lbs. Previous baseline had been 111-115 lbs). denies: Poor appetite - Eyes Eyes: reports: Vision loss, Corrective lenses - Respiratory Respiratory: reports: Cough (moist), Sputum production (thinner phlegm with Mucinex), SOB at rest, SOB with exertion - Gastrointestinal Gastrointestinal: denies: Constipation, Poor appetite - Genitourinary Genitourinary: denies: Incontinence - Musculoskeletal Musculoskeletal: reports: Back pain (chronic, uncontrolled), Joint pain, Assistive devices (walker). denies: Transfer issues - Psychiatric Psychiatric: denies: Depression, Anxiety Physical Exam - Vital Signs Temperature: 96.2 F Pulse Rate: 73 O2 Saturation: 90 (this is norm for her) Blood Pressure: 101/45 (wrist cuff) - Physical Exam General Appearance: positive: No acute distress, Alert Eyes Bilateral: positive: Normal inspection ENT: positive: ENT inspection nml Neck: positive: Trachea midline Cardiovascular: positive: Regular rate & rhythm, No murmur Respiratory: positive: No respiratory distress, Diminished throughout (no air sounds), Rhonchi (expiration) Abdomen: positive: Distended Skin: positive: Pallor Extremities: positive: No pedal edema Neurologic/Psychiatric: positive: Oriented x3, Mood/affect nml Palliative Care - POLST Patient has POLST: Yes POLST Status: DNR, Selective Treatment Pain: Pain unchanged, Location (back) Tiredness/Fatigue: Moderate (4-6) Drowsiness/Sedation: None Nausea: None Depression: None Anxiety: None Dyspnea: Severe (7-10) Anorexia: None Sleep: Sleeps poorly, Other (trazodone, MS Contin for sleep aids) Constipation: Yes, Opoid induced, Managed, Intermittent constipation Performance Status: 6L O2 SOA with minimal exertion Still able to leave facility for medical appointments, hair appointments - Palliative Care Discussion: Patient has just been told by her first officer that there is nothing more he can do for her, so there is no sense in continuing with consultations. He provides a prognosis of one year or less.However, she wants Dr Marin to speak with her sons about her disease and prognosis, and so she has an appointment with him in September. This is when the patient's son will be visiting her from [facility]. The patient says her sons are in denial about her prognosis. Her condition has deteriorated in the past, they have seen her rebound, and they tell her, "Oh mom, you've made it through before....". Patient denies being upset, depressed, or anxious about her prognosis. She was told some time ago by her senior health physics technician she had a [address] Marin, her "cheerleader" gave her from 2-5 years. She has recognized her prognosis was always poor and was hoping to do as many bucket list items as possible, all centered around spending time with her sons and grandchildren. She denies being scared, but she does want her sons to accept the new prognosis. Despite their denial, she feels she is supported by her sons. We discussed her plans for the future as her condition worsens. She is going through her files to clean them up. She's also organizing all her photographs. She is planning to prepay her service, she has a financial administration officer, and son Zhang is her DPOA. She is considering moving to an [facility] in [place] she has heard about, to be closer to son Zhang and his family. She avoids speaking of the emotional aspects of her journey. When asked what is important to her, she says she regrets not being able to take trips with her two young grandchildren due to her physical condition. Did discuss that patient's Palliative Care provider will be switching due to personnel changes. Patient will be following up with her new provider at [facility] Aug 05, and follows up with her PCP tomorrow, and will be looking for a replacement PCP [place] or in [place]. Patient does not qualify for Hospice currently, she wants to continue her Letairis treatment for symptom relief and quality of life as long as possible. She wants hospitalizaton, but not intubation, for reversible conditions. Patient declines Palliative Care global transportation manager and SW support. Results - Lab Results Lab results reviewed: Yes Lab and Imaging Results: 04/07/19 07/02/2019 Sodium 137 137 Potassium 4.7 4.7 Chl 95 L 96 L CO2 32 31 Anion Gap 10 10 BUN 25 H 27 H Creatinine 1.3 H 1.2 H Est GFR 40 L 44 L Glucose 92 89 Calcium 9.0 .92 Total Bilirubin 0.4 0.5 AST 21 28 ALT 15 15 Alk Phos 44 42 Total Protein 6.6 L 7.1 Albumin 3.8 4.0 Globulin 2.8 3.1 BNP 128 H (was also 128 on 03/27/19) TSH 5.37 (norm) 03/27/19 WBC 6.3 5.5 RBC 3.57 L 3.46 L Hgb 11.0 L 10.4 L Hct 33.2 L 33.4 L MCV 93.0 96.5 RDW 15.0 14.2 Plt Count 117 L 103 L Neut # 4.9 3.8 Lymph # 0.6 L 0.9 L Impression and Recommendations - Palliative Care Impression: 78-year-old female with worsening end-stage COPD and pulmonary arterial HTN. She has lived at [facility] for 7+ years. Her first officer is discharging her from his service since he can no longer procide her any new treatment and gives her a prognosis of 1 year or less. Her pain specialist at [facility] is referring her to an MD pain specialist at the same clinic, and the patient's current PCP is resigning at end of month. Patient is in the process of finding a new PCP [place]. Palliative Care primary provider will also switch due to personnel changes. Palliative Care will continue to monitor and provide support with symptom management and goals of care. Patient is not ready yet for Hospice. Recommendations/Counseling Done: Chronic back pain: Lifelong, many years on oxycodone. PARKER Parsons of [facility] switched her from oxycodone 10mg 6x/day to hydromorphone 4mg 6x/day, same schedule (0700, 1000, 1300, 1600, 1900, 2200). Plus MS Contin 15mg QHS. (MED 111, up from 105.) Her pain is still uncontrolled, so Adalid is referring her to Dr Major at the same clinic. Patient's said long-acting opioids in the past haven't worked. Unclear if fentanyl or methadone has been tried. Recent injections and ablation did not help. PCP is renewing referral to the pain clinic. Patient's next pain appointment is Aug 05. Palliative care can assume pain medication management if [facility] or patient declines further treatment. CHF and [id number] lower extremity edema: Continued on torsemide 20mg. No improvement in SOA. She sees PCP on 07/02/19 will inquire about increasing torsemide, though doesn't want to urinate more frequently. Labs will be run to check kidney and other functions. Weight increased to 123 lbs (previous baselines months ago was 110-115 lbs), moist cough and rhonci. Mucinex is thinning her phlegm. Continue compression hose and elevation throughout the day. No pedal edema. COPD and Pulmonary fibrosis: Continues Dulera PRN, albuterol PRN, ipratropium PRN, and Spiriva/tiotropium routine. Pulmonary arterial hypertension: Patient wants to continue Letairis ($11k per month) and sildenafil. Machine Operator Helper Dr Marin of [facility] in [place] says he has nothing more to offer her as treatment, and is referring her back to PCP and Palliative Care. He will see her and her sons in September to answer questions; patient is concerned her sons are in denial about her prognosis, thinking she will continue to "make it through this time." Advance care planning: POLST is DNR and selective treatment, no intubation but hospitalization OK for reversible conditions. Patient denies depression or fear, is putting her affairs in order. Does regret some of the bucket list items she hoped to do with her grandchildren because her SOA is too severe. Follow up with patient next week after her PCP appointment and labs. Time Spent: 75 minutes were spent with more than 50% of the time spent on counseling, education, and coordination of care with facility staff.
== END 2019-07-01 13:41 | disposition home or self-care (01) ==
LOC: PC 13:40
PROVIDERS: ATTEND Nurse Practitioner
DX: Z51.5 Encounter for palliative care (principal); G89.29 Other chronic pain; M54.9 Dorsalgia, unspecified; I11.0 Hypertensive heart disease with heart failure; I50.32 Chronic diastolic (congestive) heart failure; J43.9 Emphysema, unspecified; I27.21 Secondary pulmonary arterial hypertension; J96.10 Chronic respiratory failure, unspecified whether with hypoxia or hypercapnia; J84.10 Pulmonary fibrosis, unspecified; F11.20 Opioid dependence, uncomplicated; Z87.891 Personal history of nicotine dependence; Z79.899 Other long term (current) drug therapy; Z66 Do not resuscitate

== ENCOUNTER 2019-07-02 | Outpatient (CLI) | payer MEDICARE, OTHER | END 2019-07-02 23:59 | disposition home or self-care (01) ==

== ENCOUNTER → 2019-07-02 | Outpatient (CLI) | payer MEDICARE, OTHER ==
--- NOTE | 2019-07-03 13:54 | XRAY Report ---
Reason: LEFT KNEE PAIN Procedure Date: 07/02/2019 Accession Number: [id number] / [id number] Procedure: WCP - Knee 3 View LT CPT Code: FULL RESULT: EXAM: LEFT KNEE RADIOGRAPHY EXAM DATE: 07/02/2019 03:19 PM. CLINICAL HISTORY: Left knee pain. Swelling. COMPARISON: None. TECHNIQUE: 3 views. FINDINGS: Bones: No acute fracture or bony lesion. No bony erosions. Joints: Mild narrowing of the medial compartment. No knee effusion. Soft Tissues: Soft tissue edema. IMPRESSION: 1. No acute osseous abnormalities. 2. Mild degenerative joint space narrowing of the medial compartment of the left knee. RADIA
== END ==
LOC: EDSTATUS 12:59 → DI.WCP 15:00
PROVIDERS: ATTEND Family Medicine
DX: M17.12 Unilateral primary osteoarthritis, left knee (principal)

== ENCOUNTER 2019-07-08 10:35 | Outpatient (CLI) | payer MEDICARE, OTHER ==
--- NOTE | 2019-07-08 15:41 | CONSULTATION NOTE ---
Palliative Care Follow Up - Referral Referring Provider: Dr Newsome Time of Visit: Sat07/08/2019. 10:35 - 11:00 Referral setting: Assisted living ([facility]) Referral Reason: Worsening SOA; end stage COPD - Information Sources Records reviewed: RN notes reviewed History/Review of Systems obtained from: Patient, Nursing Exam limitations: No limitations - History of Present Illness Update Brief HPI Update: 78-year-old woman living at [facility], with end-stage COPD and pulmonary arterial HTN, and chronic back pain managed by [facility]. She has worsening SOA, and has been discharged by her physical damage appraiser as there is nothing further he can do for her Medical history: Pulmonary arterial HTN, centrilobular emphysema; endstage COPD; chronic respiratory failure; pulmonary fibrosis; diastolic CHF with normal LV systolic function, EF 65%; HTN; chronic pain, opioid dependency managed by pain clinic; HLD; iron deficiency anemia; GERD; depression and anxiety; osteoarthritis; h/o etoh abuse; former smoker 100 pack years. She will have only one more visit with Dr Marin her physical damage appraiser: he says he can't do anything more for her. The prognosis is 1 year or less. He will see the patient and her sons in September when the son who lives in [facility] is here for a visit. He will explain the prognosis. Her [facility] pain clinic SUPERVISING EDITOR [employer] REEL, Adalid Parsons, said there is nothing more she can do, has referred her on to Dr Leonidas Major at the same clinic, for management of her chronic back pain. She will transfer to a new PCP since Dr Newsome is leaving at the end of this month. She has set up a consultation with Dr Christopher for Aug 26. She will also change Palliative Care providers due to this provider leaving next week. Patient had a recent appointment with Dr Newsome, she ordered labs. Kidney function is impaired (CKD III, GFR 44) similar to April results, BNP is elevated, but stable, at same level it was in March. Patient is anemic, levels are stable. Discussed starting a patient on a course of steroids, she is agreeable to this plan, has been on steroids many times in the past, it has helped SOA temporarily. Patient reports she is now at 7liters oxygen. SOA is at baseline; no SOA at rest, but SOA with the least exertion, such as using the bathroom Social History - Living Situation Living arrangement: Assisted living ([facility]) Living Situation: With caregiver(s) Support System: The patient has lived on [facility] since the . Her son/WLOF Titus [place] his and two children and is closely involved in her care. She has two grandchildren: 13 yr old girl and 10 yr old boy. Her second son lives in [facility], and is unmarried. He runs a business around soccer. His next visit here will be in September. Medications/Allergies - Medications Home Medications: Ambulatory Orders Medication Instructions Recorded Confirmed Cholecalciferol (Vitamin D3) 2,000 units PO DAILY 02/04/17 07/01/19 [Vitamin D3] Mometasone/Formoterol [Dulera 100 2 puffs INH BID 02/04/17 07/01/19 Mcg/5 Mcg Inhaler] Trazodone HCl 50 mg PO QPM 02/04/17 07/01/19 diphenhydrAMINE [Benadryl] 50 mg PO QPM PRN 02/04/17 07/01/19 Escitalopram [Lexapro] 10 mg PO DAILY 02/19/17 07/01/19 Loperamide [Imodium] 2 - 4 mg PO PRN PRN MDD NTE 6 tabs 09/29/17 07/01/19 in 24 hours Acetaminophen [Tylenol] 650 mg PO Q8H PRN 01/30/18 07/01/19 Ipratropium [place] 2 sprays OMID Q8H PRN 01/30/18 07/01/19 Saccharomyces Boulardii [Florastor] 250 mg PO DAILY 01/30/18 07/01/19 Triamcinolone 0.1% Cream [Kenalog 1 applic TOP BID 01/30/18 07/01/19 0.1% Cream] Diphenoxylate/Atropine [Lomotil] 1 tab PO TID PRN #30 tablet 02/05/18 07/01/19 Magnesium Oxide [Mag Ox] 400 mg PO BIDWM tablet 02/05/18 07/01/19 Ambrisentan [Letairis] 10 mg PO DAILY 09/29/18 07/01/19 Diclofenac Sodium/Misoprostol 1 tab PO DAILY 09/29/18 07/01/19 [Diclofenac-Misoprost 50-200 Tb] Lovastatin 40 mg PO QPM 09/29/18 07/01/19 Omeprazole 40 mg PO DAILY 09/29/18 07/01/19 Sildenafil Citrate 20 mg PO TID 09/29/18 07/01/19 Spironolactone 25 mg PO DAILY 09/29/18 07/01/19 Tiotropium [place] [Spiriva 2 inh PO DAILY 09/29/18 07/01/19 Respimat] Bismuth Subsalicylate [[place] 15 ml PO DAILY PRN 10/20/18 07/01/19 Bismuth] Magnesium Hydroxide [Milk of 30 ml PO DAILY PRN 10/20/18 07/01/19 Magnesia] Potassium Chloride [K-Dur] 20 meq PO DAILY MDD with meals 12/10/18 07/01/19 Albuterol Sulfate [Proair 2 puffs PO Q4H PRN 04/03/19 07/01/19 Respiclick] Carbamide Peroxide Otic Drop 5 drops EACHEAR DAILY PRN MDD For 04/03/19 07/01/19 [Debrox Otic Drops] 5 days then flush Docusate Sodium 100 mg PO DAILY PRN 04/03/19 07/01/19 Lidocaine Patch 5% [Lidoderm Patch] 1 patch TOP DAILY PRN MDD 12 hrs 04/03/19 07/01/19 on, 12 hrs off Morphine Sulfate [Ms Contin] 15 mg PO .QHS 04/03/19 07/01/19 Torsemide 20 mg PO DAILY 04/03/19 07/01/19 Guaifenesin [Mucinex] 1 - 2 tab PO BID PRN 07/01/19 07/01/19 Hydromorphone HCl 4 mg PO Q3HR MDD 6 doses per day 07/01/19 07/01/19 Multivit-Min/FA/Lycopen/Lutein 1 tab PO DAILY 07/01/19 07/01/19 [Centrum Silver Men Tablet] Senna [Senokot] 2 tab PO QPM 07/01/19 07/01/19 Sodium Fluoride [Prevident 5000] 1 ea PO PRN 07/01/19 predniSONE [Prednisone] 20 mg PO DAILY 07/08/19 07/08/19 - Allergies Allergies/Adverse Reactions: Allergies Allergy/AdvReac Type Severity Reaction Status Date / Time Sulfa (Sulfonamide Allergy Mild Rash Verified 08/20/18 13:13 Antibiotics) Review of Systems - Constitutional Constitutional: reports: Fatigue, Weight gain (123.4 lbs 07/08/19. It's now stabilized around this range: 122-124. Previous baseline had been 111-115 lbs.). denies: Poor appetite - Eyes Eyes: reports: Vision loss, Corrective lenses - Cardiovascular Cardiovascular: reports: Exertional dyspnea, Decr. exercise tolerance. denies: Edema - Respiratory Respiratory: reports: Cough (moist), Sputum production, SOB with exertion. denies: SOB at rest - Gastrointestinal Gastrointestinal: reports: Constipation (managed), Good appetite - Genitourinary Genitourinary: denies: Dysuria, Frequency, Incontinence - Musculoskeletal Musculoskeletal: reports: Back pain (chronic, opioid dependent x years), Stiffness, Joint pain, Assistive devices (walker). denies: Transfer issues - Psychiatric Psychiatric: denies: Depression, Anxiety - Hematologic/Lymphatic Hematologic/Lymphatic: reports: Anemia Physical Exam - Vital Signs Temperature: 96.6 F Pulse Rate: 71 O2 Saturation: 95 (7liters O2) Blood Pressure: 116/60 (wrist cuff) - Physical Exam General Appearance: positive: No acute distress, Alert Eyes Bilateral: positive: Normal inspection ENT: positive: No signs of dehydration Neck: positive: Trachea midline Cardiovascular: positive: Regular rate & rhythm, No murmur Respiratory: positive: Diminished throughout (no air sounds), Rhonchi (expiration) Abdomen: positive: Non-tender, Soft, Distended Skin: positive: No symptoms Extremities: positive: No pedal edema Neurologic/Psychiatric: positive: Oriented x3, Mood/affect nml Palliative Care - POLST Patient has POLST: Yes POLST Status: DNR, Selective Treatment Pain: Pain unchanged, Location (chronic back pain), Comment (opioid dependent) Tiredness/Fatigue: Moderate (4-6) Drowsiness/Sedation: None Nausea: None Depression: None Anxiety: None Dyspnea: Severe (7-10) (with any exertion, O2 now at 7liters) Anorexia: None Sleep: Sleeps poorly (trazodone, MSContine for sleep aids) Constipation: Yes, Opoid induced, Managed, Intermittent constipation Performance Status: 7 liters O2, continuous severe SOA with exertion ambulatory with walker leaves facility for medical appointments, hair appointment Results - Lab Results Lab results reviewed: Yes Impression and Recommendations - Palliative Care Impression: 78-year-old female with advancing end-stage COPD and pulmonary arterial HTN. She has numerous changes in her medical providers occurring currently. She will s top seeing her physical damage appraiser, is being referred to a new pain specialist, will transition to a different Palliative Care provider, and will have a new PCP. Palliative Care will continue to monitor and provide support with symptom management and goals of care, and will monitor for transition to Hospice when appropriate. Recommendations/Counseling Done: Chronic back pain: Being managed by [facility]. Currently on hydromorphone 4mg 6x/day, (0700, 1000, 1300, 1600, 1900, 2200). Plus MS Contin 15mg QHS. (MED 111.) She has been on oxycodone for years, was most recently on 10mg 6x/day. She has tried long-acting pain meds in the past which have not controlled the pain. PARKER Bunch, can no longer do anything for her and is referring her to Dr Major at the [facility]. Recent injections and ablation were not effective. Patient has a follow up appointment Aug 05. Chronic SOA secondary to COPD and pulmonary fibrosis: Ordered a short course (30 days) prednisone 20mg and monitor. Continue Dulera PRN, albuterol PRN, ipratropium PRN, and Spiriva/tiotropium routine. Pulmonary arterial hypertension: Patient will continue Letairis ($11k per month) and sildenafil. Director Pharmacology Dr Marin of [facility] in [place] says he has nothing more to offer her as treatment, and is discharging her after one more appointment in September with both her sons present (one son is traveling from [place]). Constipation: Opioid induced. Senna 2 tablets every evening and docusate sodium as needed. Advance care planning: POLST is DNR and selective treatment, no intubation but hospitalization OK for reversible conditions. She does not want hospitalization at [facility]: take her to [facility]. Patient was given a one year prognosis by her physical damage appraiser recently. She denies depression or anxiety, is making preparations, is considering moving to a different assisted living facility in [place], closer to her son and his family. She does not want her sons to be in denial of her prognosis of one year or less. She has requested a family conference with Dr Marin in September. Her pleasure is in her family, spending as much time as she can [place]. Time Spent: 25 minutes were spent with more than 50% of the time spent on counseling, education, and coordination of care with facility staff.
== END 2019-07-08 10:36 | disposition home or self-care (01) ==
LOC: PC 10:35
PROVIDERS: ATTEND Nurse Practitioner
DX: Z51.5 Encounter for palliative care (principal); R06.02 Shortness of breath; G89.29 Other chronic pain; M54.9 Dorsalgia, unspecified; F11.20 Opioid dependence, uncomplicated; J43.2 Centrilobular emphysema; J84.10 Pulmonary fibrosis, unspecified; I27.21 Secondary pulmonary arterial hypertension; K59.03 Drug induced constipation; T40.2X5D Adverse effect of other opioids, subsequent encounter; Z79.899 Other long term (current) drug therapy; Z99.81 Dependence on supplemental oxygen; Z87.891 Personal history of nicotine dependence; Z66 Do not resuscitate

== ENCOUNTER 2019-08-14 13:18 | Outpatient (CLI) | payer MEDICARE, OTHER ==
--- NOTE | 2019-08-14 16:59 | CONSULTATION NOTE ---
Palliative Care Follow Up - Referral Referring Provider: Dr. Darron Farmer/PCP Dr. Christopher Time of Visit: Referral setting: Assisted living Referral Reason: Pulmonary Artery HTN/Etohism/Constipation - Information Sources Records reviewed: Previous records reviewed History/Review of Systems obtained from: Patient Exam limitations: No limitations - History of Present Illness Update Brief HPI Update: This is a 78-year-old woman with end-stage COPD and pulmonary arterial hypertension, she continues with progressive dyspnea and activity intolerance. She does feel much better with her breathing on prednisone 20 mg daily, but has had a 10 pound weight gain as well as developing some cushingoid features. Rep orts thick and cough, secretions then with Mucinex. She does have her oxygen at 7 L, she does have to pace herself. And does find changes overall related to her breathlessness, she was using her rescue inhaler 1 time a week, now she is up to using it 3-4 times a day. Her O2 sats are 95%, her lungs have a slight expiratory wheeze and are diminished throughout. She is continue to try and stay active with PT on a maintenance program 3 times a week. Patient also has long-term chronic pain, she is managed at the pain clinic now by Dr. Morgan. She is currently on MS Contin 15 mg at bedtime, and 4 mg of hydromorphone every 3 hours for a total of 6 doses. Patient is awake and alert, not sedated, has been on this regimen for several months. She continues with severe pain, but reports that tolerable but wondering about the effectiveness of opioids on her chronic pain with all the media attention. She reports in her history, she used to be on Motrin and reduce alcohol for her pain control. She does admit it got out of control, and got her into quite a bit of trouble. She reports she has only had intermittent alcohol use/misuse with the initiation of opioids. She reports her primary Dr. Heart was quite clear on this, and thus we referred her to the pain clinic. Patient was reported to have been inebriated a few days ago, and because of the concern for safety a search was d one and found several boxes of wine, and it was removed from her room. She is quite distraught regarding invasion of her privacy, and a second episode of concerned of smell of alcohol, yesterday and they had her come into the room this time and remove the remainder of the alcohol per her report. Patient does admit to having been drinking since June, she reports intake is been about 4 glasses of wine a day, that she sips through the day. She reports that it provides an adjuvant for her pain relief, and relaxes her anxiety. She denies any withdrawal symptoms or overuse, though this is what triggered initiation of the search was concern regarding behaviors demonstrating overuse.She reports this was both to supplement her pain and also decrease her anxiety, since she met with Dr. Bonilla, and told her of her limited life expectancy. She is quite [id number] with the conversation, and willing to engage. She was not defensive and was willing to sign a contract. Patient also has had constipation, she reports this is been well controlled with initiation of senna. Patient's past medical history includes pulmonary artery hypertension, centrilobular emphysema, end-stage COPD, chronic respiratory failure, pulmonary fibrosis, diastolic CHF with normal LV systolic function ejection fraction 65%; hypertension, chronic pain, opioid dependency managed by pain clinic; HLD; iron deficiency anemia, GERD; depression; anxiety, osteoarthritis, former smoker of 100 pack years. CKD stage III, and thrombocytopenia. Social History - Living Situation Living arrangement: At home Support System: Patient is quite distressed as she has had progressive dyspnea she is not been able to drive long distances to [place]. This has more to do with her oxygen demand, and unable to get a concentrator that can take her higher liter flow. Her son and D NARCISA Titus lives in [place], with recent [place] dx, which is of concern to her. They have 2 grandchildren, whom she is very much wanting to be involved with. Her second son lives in [facility], and is coming in September. The plan is for them to rent a house and have a family gathering. She is also hoping at that point in time to meet with the split and drum room supervisor to be able to explain further prognosis and what to expect. She feels that they do not "believe her" the seriousness of her condition. She has been told she has less than 1 year Medications/Allergies - Medications Home Medications: Ambulatory Orders Medication Instructions Recorded Confirmed Cholecalciferol (Vitamin D3) 2,000 units PO DAILY 02/04/17 08/14/19 [Vitamin D3] Mometasone/Formoterol [Dulera 100 2 puffs INH BID 02/04/17 08/14/19 Mcg/5 Mcg Inhaler] Trazodone HCl 50 mg PO QPM 02/04/17 08/14/19 diphenhydrAMINE [Benadryl] 50 mg PO QPM PRN 02/04/17 08/14/19 Escitalopram [Lexapro] 10 mg PO DAILY 02/19/17 08/14/19 Loperamide [Imodium] 2 - 4 mg PO PRN PRN MDD NTE 6 tabs 09/29/17 08/14/19 in 24 hours Acetaminophen [Tylenol] 650 mg PO Q8H PRN 01/30/18 08/14/19 Ipratropium [place] 2 sprays OMID Q8H PRN 01/30/18 08/14/19 Saccharomyces Boulardii [Florastor] 250 mg PO DAILY 01/30/18 08/14/19 Triamcinolone 0.1% Cream [Kenalog 1 applic TOP BID 01/30/18 08/14/19 0.1% Cream] Diphenoxylate/Atropine [Lomotil] 1 tab PO TID PRN #30 tablet 02/05/18 08/14/19 Magnesium Oxide [Mag Ox] 400 mg PO BIDWM tablet 02/05/18 08/14/19 Ambrisentan [Letairis] 10 mg PO DAILY 09/29/18 08/14/19 Diclofenac Sodium/Misoprostol 1 tab PO DAILY 09/29/18 08/14/19 [Diclofenac-Misoprost 50-200 Tb] Lovastatin 40 mg PO QPM 09/29/18 08/14/19 Omeprazole 40 mg PO DAILY 09/29/18 08/14/19 Sildenafil Citrate 20 mg PO TID 09/29/18 08/14/19 Spironolactone 25 mg PO DAILY 09/29/18 08/14/19 Tiotropium [place] [Spiriva 2 inh PO DAILY 09/29/18 08/14/19 Respimat] Bismuth Subsalicylate [[place] 15 ml PO DAILY PRN 10/20/18 08/14/19 Bismuth] Magnesium Hydroxide [Milk of 30 ml PO DAILY PRN 10/20/18 08/14/19 Magnesia] Potassium Chloride [K-Dur] 20 meq PO DAILY MDD with meals 12/10/18 08/14/19 Albuterol Sulfate [Proair 2 puffs PO Q4H PRN 04/03/19 07/01/19 Respiclick] Carbamide Peroxide Otic Drop 5 drops EACHEAR DAILY PRN MDD For 04/03/19 08/14/19 [Debrox Otic Drops] 5 days then flush Docusate Sodium 100 mg PO DAILY PRN 04/03/19 08/14/19 Lidocaine Patch 5% [Lidoderm Patch] 1 patch TOP DAILY PRN MDD 12 hrs 04/03/19 08/14/19 on, 12 hrs off Morphine Sulfate [Ms Contin] 15 mg PO .QHS 04/03/19 08/14/19 Torsemide 20 mg PO DAILY 04/03/19 08/14/19 Guaifenesin [Mucinex] 600 tab PO DAILY 07/01/19 08/14/19 Hydromorphone HCl 4 mg PO Q3HR MDD 6 doses per day 07/01/19 08/14/19 Multivit-Min/FA/Lycopen/Lutein 1 tab PO DAILY 07/01/19 08/14/19 [Centrum Silver Men Tablet] Senna [Senokot] 2 tab PO QPM 07/01/19 08/14/19 Sodium Fluoride [Prevident 5000] 1 ea PO PRN 07/01/19 predniSONE [Prednisone] 15 mg PO DAILY 07/08/19 08/14/19 Capsaicin applic TOP BID 08/14/19 Naloxone HCl [Narcan] 1 spray OMID Q5MIN PRN 08/14/19 08/14/19 - Allergies Allergies/Adverse Reactions: Allergies Allergy/AdvReac Type Severity Reaction Status Date / Time Sulfa (Sulfonamide Allergy Mild Rash Verified 08/20/18 13:13 Antibiotics) Review of Systems - Constitutional Constitutional: reports: Fatigue, Weight gain (10 pounds this month). denies: Fever, Chills - Eyes Eyes: reports: Vision loss, Corrective lenses - Ears, Nose & Throat Ears, Nose & Throat: reports: Nasal congestion, Dry mouth - Cardiovascular Cardiovascular: reports: Exertional dyspnea, Decr. exercise tolerance, Orthopnea - Respiratory Respiratory: reports: Cough, Orthopnea, SOB at rest, SOB with exertion, Pleuritic pain (right lower rib area) - Gastrointestinal Gastrointestinal: reports: Bloating, Good appetite. denies: Constipation - Musculoskeletal Musculoskeletal: reports: Back pain, Muscle weakness, Assistive devices (uses walker/wheelchair) - Integumentary Integumentary: reports: Dryness - Neurological Neurological: reports: General weakness - Psychiatric Psychiatric: reports: Depression, Anxiety - Hematologic/Lymphatic Hematologic/Lymphatic: reports: Anemia. denies: Recurrent infections - All Other Systems All Other Systems: reports: Reviewed and negative Physical Exam - Vital Signs Pulse Rate: 69 Respiratory Rate: 18 O2 Saturation: 95 (7 liters at rest) Blood Pressure: 112/62 - Physical Exam General Appearance: positive: No acute distress, Alert Eyes Bilateral: positive: Normal inspection ENT: positive: No signs of dehydration Neck: positive: Trachea midline Cardiovascular: positive: Regular rate & rhythm Respiratory: positive: Diminished throughout, Wheezes, Other (tenderness with palpation at rib cage; worse with deep inspiration) Abdomen: positive: Soft, Nml bowel sounds Skin: positive: Pallor Extremities: positive: No pedal edema Neurologic/Psychiatric: positive: Oriented x3, Mood/affect nml Palliative Care - POLST Patient has POLST: Yes POLST Status: DNR, Selective Treatment Pain: Pain unchanged Constipation: Yes, Opoid induced, Managed Feelings of wellbeing/Perceived Quality of Life: Fair, Acceptable, Worsening Performance Status: He is to experience decreased activity tolerance mostly limited by her dyspnea. She does pace herself, does have a 4 wheeled walker as well as a wheelchair. She does leave the facility for medical appointments and hair appointments only. She can no longer to sustain long periods are long outings secondary to oxygen use. Results - Lab Results Lab results reviewed: Yes Impression and Recommendations - Palliative Care Impression: This is a 78-year-old woman with progressive pulmonary arterial hypertension, advanced COPD, severe chronic pain syndrome, anxiety, and now presents with alcohol misuse. Patient continues with very slow but steady functional decline, increased oxygen requirements, and moderate to high symptom burden. Palliative care providing support regarding symptom management and goals of care, will transition to hospice when appropriate. Recommendations/Counseling Done: 1. Advanced COPD. Patient has felt like she is breathing better on the prednisone 20 mg, she does recognize she is gained weight and was curious about concern regarding side effects. We did review in the context of its high risk for infection with immune suppression, osteoporosis, irritability, impact on blood sugars and concern for muscle wasting. Given patient's limited life expectancy, weighing benefits and burdens and improvement in quality of life, decision was made to decrease down to 15 mg of prednisone for 2 weeks and reevaluate. Goal would be to at least get down to 10 mg maintenance dose. 2. Alcohol misuse. Patient does have a fairly significant history of alcohol abuse, particular in the context of the management of her chronic pain. Her perception is that she is using it in a controlled way, about 4 glasses a day mostly impacting relaxation and her anxiety. She reports she has been doing this since June. The trigger was she did appear inebriated that led to the discovery was to the staff a few days ago, which then given the issues of safety resulted in confiscation of her wine without her prescence, and again yesterday with her present. Patient actual perception is this helps her more than her opioids, counseling provided regarding the danger of mixing alcohol and narcotics, patient has had long-standing order of no alcohol as a condition for opioid treatment. Reviewed her PCP had requested if she seemed inebriated or alcohol on her breath, was to have a alcohol level drawn. She seemed quite surprised by this, we did discuss in the context again facilities safety concern for medical providers regarding mixing, and at this point in time she is agreed no alcohol. She did sign a contract, but also requests if going to have a check or follow-up that she be present for search. She would like to further talk to Dr. Steele about this. We did discuss in the context of titration off of narcotics that given the length of time she is been on it and her high doses, would need to be titrated over a fairly long period of time. Patient's perception is she is dying anyway, it adds her quality of life, but this is in weight also against facility safety and concerns, she is not in her own home and consequences and regulations exist. Her comment was she is just changing 1 addiction for another, but we did review that her opioids are distributed and she cannot take more than the allotted amount, as alcohol would not be controlled. 3. Chronic pain. Patient continue to work with new pain specialist, does have a pending appointment in September. She reports there was a procedure, and [id number] to consider that she reports she has tried almost everything. She does not feel her pain is worse nor improved, and is wondering about the effectiveness of the narcotics. Counseling provided regarding her questions regarding opioid use/misuse and opioid epidemic as it is been very much in the news. 4. Constipation. Patient is doing well on her 2 senna every night, reports no further problems and is quite pleased. 5. Thrombocytopenia. Patient is worried about her risks with thrombocytopenia, she does not have a visit scheduled in with oncologist/training and development head. We discussed actually given now her admission of alcohol use, this can impact her platelets. Patient still sitting at 111,000, reported this is not high risk for bleeding, and most likely not to have any serious sequela from this. 6. Advanced care planning. Pulse is DNR and selective treatment, no intubation but hospitalization okay for reversible conditions. If she were to be hospitalized she would like to be taken [facility]. She is planning a [facility] reion in September, is looking forward to this. We did discuss in the context of her anxiety offered to have medical palliative care social media intern and or assembler wet wash. At this point in time she does decline. She will contact palliative care after she has had her appointments with PCP, pain clinic, and family meeting with split and drum room supervisor. Time Spent: 60 minutes with greater than 50% of this done in counseling regarding risk of opioid/alcohol use combined, initiation of the contract, counseling for anxiety, and anticipatory guidance.
== END 2019-08-14 13:19 | disposition home or self-care (01) ==
LOC: PC 13:18
PROVIDERS: ATTEND Nurse Practitioner Adult Health
DX: Z51.5 Encounter for palliative care (principal); I27.21 Secondary pulmonary arterial hypertension; I27.20 Pulmonary hypertension, unspecified; J43.2 Centrilobular emphysema; G89.29 Other chronic pain; F41.9 Anxiety disorder, unspecified; J96.10 Chronic respiratory failure, unspecified whether with hypoxia or hypercapnia; I50.30 Unspecified diastolic (congestive) heart failure; F11.20 Opioid dependence, uncomplicated; E78.5 Hyperlipidemia, unspecified; D50.9 Iron deficiency anemia, unspecified; K21.9 Gastro-esophageal reflux disease without esophagitis; I13.0 Hypertensive heart and chronic kidney disease with heart failure and stage 1 through stage 4 chronic kidney disease, or unspecified chronic kidney disease; N18.3 Chronic kidney disease, stage 3 (moderate); H54.7 Unspecified visual loss; F10.10 Alcohol abuse, uncomplicated; K59.00 Constipation, unspecified; D69.6 Thrombocytopenia, unspecified; Z79.51 Long term (current) use of inhaled steroids; M19.90 Unspecified osteoarthritis, unspecified site; Z66 Do not resuscitate; Z99.81 Dependence on supplemental oxygen; Z87.891 Personal history of nicotine dependence

== ENCOUNTER 2019-09-22 09:30 | Outpatient (CLI) | payer MEDICARE, OTHER ==
--- NOTE | 2019-09-22 17:46 | CONSULTATION NOTE ---
Palliative Care Follow Up - Referral Referring Provider: Dr. Heriberto Christopher Time of Visit: [id number] Referral setting: Assisted living Referral Reason: Pulmonary HTN/Chronic Back Pain/Goals of Care - Information Sources Records reviewed: Previous records reviewed History/Review of Systems obtained from: Patient Exam limitations: No limitations - History of Present Illness Update Brief HPI Update: This is a 78-year-old woman with end-stage COPD and pulmonary arterial hypertension, with severe back pain, alcohol misuse, and declining activity tolerance. She has multiple complex issues, and presents with high symptom burden.Patient has known progressive pulmonary hypertension, is currently sildenafil citrate and Letairis, and has recently seen her engraver hand hard metals. She is significantly compromised as far as her hypoxia, she is currently on 7 L, and has limited activity tolerance and breathlessness continues. She does report some nasal congestion, some increase in cough though currently sputum is clear, no fever or chills, but is concerned as her understanding from her meeting with him as she would most likely not survive a round of pneumonia or infection at this point in time. In the context of this that he is also titrated down her prednisone to 10 mg, and has it being discontinued on 09/25/2019 with concern for immunocompromise. She also has documented central lobular emphysema, she has significant shortness of breath and uses her inhalers frequently, including her pro-air up to 8 times a day to manage her activities of daily living. She did have a meeting with her sons, regarding the expectation and trajectory of her disease, and would like to be hospitalized at [facility], to be able to have support of pulmonology. She does not want intubation, but would agree to basic measures. This was all discussed with her sons, she does feel some sense of relief and that they have a better idea of how serious her underlying illnesses. Her other complex and stone is her chronic back pain. She is dealt with this for decades, she is a result of some interaction with the pain provider, as well as her wish to resume drinking her wine, has titrated off her opioids. She actually has tolerated this fairly well, and will be done at the end of the week both off of her hydromorphone and her MS Contin. Patient does have a long history of alcohol misuse/abuse, she does find actually it is helpful for her anxiety and her pain, and was drinking 4 to 6 glasses of wine a day on top of her regimen, thus also the need to titrate her off. She has been counseled by multiple providers regarding concerns of safety with this. In discussion with her PCP Dr. Steele, and in the context of her setting, it can be distributed, through the [email or web address], so she will after she is finished her narcotics. She does report increase in pain, she has pain located in her mid back, into radiating her left hip, and her SI joint feels it is almost a plank-like distribution across her back side. It is worsening with any kind of position change in particular standing. At present she is managing at with frequent position changes, as well as topical CBD which only last for short period of time. She does report improvement though of the side effects, she has not had any further constipation, the pruritus has resolved, and denies any difficulty with sleeping. She is wondering in the future about restarting her ibuprofen at her previous dosing which was 800 mg 3 times daily. Given her discussion regarding conference with her sons and engraver hand [employer], we did explore further her goals of care. She had a wonderful visit this last week with them, her son was here from [facility], and got to spend time with the grandchildren. Feels very positive about their support. Social History - Living Situation Living arrangement: Assisted living Living Situation: Alone Support System: Patient has lived at [facility] for 7 years, she has found it a good fit. We had discussed why she we did not move closer to her son in [place]. Reports that she has still has good friends in the area, her support system is here as far as her hairdresser and people who help her with her care and appointments. She does not want to put more of a burden on her son, and at this point is not interested in exploring a different set up. Her son from [facility] is coming back again over the holidays, and her birthday is coming, she very much enjoys her time with family. Medications/Allergies - Medications Home Medications: Ambulatory Orders Medication Instructions Recorded Confirmed Cholecalciferol (Vitamin D3) 2,000 units PO DAILY 02/04/17 09/24/19 [Vitamin D3] Mometasone/Formoterol [Dulera 100 2 puffs INH BID 02/04/17 09/24/19 Mcg/5 Mcg Inhaler] Trazodone HCl 50 mg PO QPM 02/04/17 09/24/19 diphenhydrAMINE [Benadryl] 50 mg PO QPM PRN 02/04/17 09/24/19 Escitalopram [Lexapro] 10 mg PO DAILY 02/19/17 09/24/19 Loperamide [Imodium] 2 - 4 mg PO PRN PRN MDD NTE 6 tabs 09/29/17 09/24/19 in 24 hours Acetaminophen [Tylenol] 1,000 mg PO Q8H PRN 01/30/18 08/14/19 Ipratropium [place] 2 sprays OMID Q8H PRN 01/30/18 09/24/19 Saccharomyces Boulardii [Florastor] 250 mg PO DAILY 01/30/18 09/24/19 Triamcinolone 0.1% Cream [Kenalog 1 applic TOP BID 01/30/18 09/24/19 0.1% Cream] Diphenoxylate/Atropine [Lomotil] 1 tab PO TID PRN #30 tablet 02/05/18 09/24/19 Magnesium Oxide [Mag Ox] 400 mg PO BIDWM tablet 02/05/18 09/24/19 Ambrisentan [Letairis] 10 mg PO DAILY 09/29/18 09/24/19 Diclofenac Sodium/Misoprostol 1 tab PO DAILY 09/29/18 09/24/19 [Diclofenac-Misoprost 50-200 Tb] Lovastatin 40 mg PO QPM 09/29/18 09/24/19 Omeprazole 40 mg PO DAILY 09/29/18 09/24/19 Sildenafil Citrate 20 mg PO TID 09/29/18 09/24/19 Spironolactone 25 mg PO DAILY 09/29/18 09/24/19 Tiotropium [place] [Spiriva 2 inh PO DAILY 09/29/18 09/24/19 Respimat] Bismuth Subsalicylate [Chamisal 15 ml PO DAILY PRN 10/20/18 09/24/19 Bismuth] Magnesium Hydroxide [Milk of 30 ml PO DAILY PRN 10/20/18 09/24/19 Magnesia] Potassium Chloride [K-Dur] 20 meq PO DAILY MDD with meals 12/10/18 09/24/19 Albuterol Sulfate [Proair 2 puffs PO Q4H PRN 04/03/19 09/24/19 Respiclick] Carbamide Peroxide Otic Drop 5 drops EACHEAR DAILY PRN MDD For 04/03/19 09/24/19 [Debrox Otic Drops] 5 days then flush Docusate Sodium 100 mg PO DAILY PRN 04/03/19 09/24/19 Lidocaine Patch 5% [Lidoderm Patch] 1 patch TOP DAILY PRN MDD 12 hrs 04/03/19 09/24/19 on, 12 hrs off Torsemide 20 mg PO DAILY 04/03/19 09/24/19 Guaifenesin [Mucinex] 600 tab PO DAILY 07/01/19 09/24/19 Multivit-Min/FA/Lycopen/Lutein 1 tab PO DAILY 07/01/19 09/24/19 [Centrum Silver Men Tablet] Senna [Senokot] 2 tab PO QPM PRN 07/01/19 09/24/19 Sodium Fluoride [Prevident 5000] 1 ea PO DAILY 07/01/19 09/24/19 predniSONE [Prednisone] 10 mg PO DAILY MDD 09/2507/08/19 09/24/19 discontinue Capsaicin applic TOP BID 08/14/19 Naloxone HCl [Narcan] 1 spray OMID Q5MIN PRN 08/14/19 09/24/19 - Allergies Allergies/Adverse Reactions: Allergies Allergy/AdvReac Type Severity Reaction Status Date / Time Sulfa (Sulfonamide Allergy Mild Rash Verified 08/20/18 13:13 Antibiotics) Review of Systems - Constitutional Constitutional: reports: Fatigue, Weight stable (125.8). denies: Fever, Chills - Eyes Eyes: reports: Vision loss, Corrective lenses - Ears, Nose & Throat Ears, Nose & Throat: reports: Nasal congestion, Postnasal drainage, Dry mouth - Cardiovascular Cardiovascular: reports: Exertional dyspnea, Decr. exercise tolerance, Orthopnea - Respiratory Respiratory: reports: Sputum production (clear), Wheezing, SOB at rest, SOB with exertion - Gastrointestinal Gastrointestinal: reports: Good appetite. denies: Constipation - Musculoskeletal Musculoskeletal: reports: Back pain, Stiffness, Muscle weakness, Assistive devices (uses walker), Other (continues with PT 3x week for conditioning maintenance) - Integumentary Integumentary: reports: Dryness - Neurological Neurological: reports: General weakness - Psychiatric Psychiatric: reports: Anxiety - Hematologic/Lymphatic Hematologic/Lymphatic: denies: Recurrent infections - All Other Systems All Other Systems: reports: Reviewed and negative Physical Exam - Vital Signs Temperature: 97.5 C Pulse Rate: 73 Respiratory Rate: 18 O2 Saturation: 95 (7 liters) Blood Pressure: 102/64 - Physical Exam General Appearance: positive: Alert Eyes Bilateral: positive: Normal inspection ENT: positive: No signs of dehydration Neck: positive: No JVD, Trachea midline Cardiovascular: positive: Regular rate & rhythm Respiratory: positive: Diminished throughout. negative: No respiratory distress (with conversation) Abdomen: positive: Soft Skin: positive: Pallor, Dryness Extremities: positive: No pedal edema Neurologic/Psychiatric: positive: Oriented x3, Mood/affect nml Palliative Care - POLST Patient has POLST: Yes POLST Status: DNR, Selective Treatment (Updated POLST with goals of care; wants to go to [facility] for reversible condition) Pain: Pain worsening, Location (back area see HPI) Tiredness/Fatigue: Severe (7-10) Drowsiness/Sedation: None Nausea: None Depression: Mild (1-3) Anxiety: Moderate (4-6) Dyspnea: Severe (7-10) Anorexia: Mild (1-3) Sleep: Variable sleep pattern Constipation: No, Comment (has resolved with titration off the opioids) Feelings of wellbeing/Perceived Quality of Life: Fair, Acceptable, Worsening Performance Status: Patient's functional status continues to decline, can only ambulate short distances is limited now both by her pain and dyspnea. - Palliative Care Discussion: Patient had very much enjoyed her visit with her sons, is hopeful they understand now the seriousness of her illness. They had a really nice visit and she enjoyed spending time with her grandchildren as well. She does understand the progressive nature of her disease, is hoping for some continued quality of life and quantity of life. She would not want anything to prolong her suffering, but would want a chance of reversing infections / treatments but no intubation. Her understanding is most likely would never be able to be weaned off, in agreement with the severity of her COPD. She has not had a place as far as transitioning to hospice, she is still on the pulmonary arterial hypertension medications as well as would accept hospitalization, she does not feel is necessary for her to at home, but would like a comfortable respectful . Her understanding is that she would do better if she were managed by pulmonology or place where they had specialists, would like to be at [facility] if she were to have complications, in the context of her goals will redo her POLST to be reflective and prescriptive as she has a significant risk of hospitalization prioir to end of life. Results - Lab Results Lab results reviewed: Yes Lab and Imaging Results: And patient's request regarding use of NSAIDs, her last kidney functions were on 80 1 with creatinine 1.2 BUN 27 GFR 44, this has been her norm and she does have CKD III Impression and Recommendations - Palliative Care Impression: This is a 78-year-old woman with progressive pulmonary arterial hypertension, a dvanced COPD, severe chronic pain syndrome now titrated off her opioids, anxiety, and alcohol abuse/misuse. Patient has chosen to have prescribed alcohol over her opioids, and hopes for better quality of life, though is experiencing increased back pain. She continues to struggle with her quality of life, is wanting to maximize time with family, and discussion regarding goals of care. Palliative care providing support regarding symptom management and goals of care, will transition to hospice when appropriate. Recommendations/Counseling Done: 1. Advanced COPD. Patient does present with concern for upper respiratory infection, sputum at this point time is clear, no fever, no increase in shortness of breath at baseline is still quite compromised. Patient is aware of signs and symptoms to access further evaluation and care. Patient has been instructed to push fluids, and continue to monitor for worsening symptoms. She does feel like she is improving versus worsening, but will. Is also been titrated down to 10 mg of prednisone by pulmonology, with a plan to discontinue on Saturday. 2. Alcohol misuse. Patient had been using in conjunction with her pain meds, about 4 glasses a day to manage her anxiety and feels it has been something helpful for her pain. She was thought to be inebriated at one point in time, so this was removed from her home. Given the context of she has titrated off her narcotics, and for quality of life, she will be allowed alcohol distributed by the [employer]. In conversation with her PCP Dr. Steele, agreement for 2 glasses currently, and can continue to evaluate depending on patient's compliance and ability to stay within the restrictions. Per facility request, I did review the fact that the alcohol/wine was going to need to be distributed in a controlled manner, she had multiple questions regarding this and found the somewhat offensive but verbalized understanding. 3. Chronic back pain. When she saw her pain specialist, she did also for violated her contract, she wanted to be titrated off opioids. She actually has tolerated this fairly well, at this point no signs or symptoms of withdrawals. She had requested revisiting use of NSAIDs, have previously been on ibuprofen 800 mg 3 times daily, had told her will need to review her chart as she does have diagnosis of CKD stage III. And follow-up with Dr. Steele, will try and hold off before initiating. Patient perhaps could tolerate a diclofenac or meloxicam with close kidney monitoring, but will await. Patient has very few options if it is not going to use opioids. She is using topical CBD but with only temporary relief. Her pain can be quite limiting as far as her quality of life is and functional status. Other options may be to initiate a trial of gabapentin, the patient has been at a pain clinic and has had multiple treatments and interventions in the past. 4. Constipation. Patient no longer needing bowel meds nor symptoms of pruritus with titration off of opioids. 5. Advanced care planning. We redid her POLST given her conversation recently with her engraver hand hard metals and goals of care. She had a jefry family reunion in September, is looking forward to the holidays as her son from [facility] is coming back. She continues with anxiety regarding end of life, has been offered but declined medical palliative care administrator social welfare and trial consultant but does know they are available. We will continue to provide support around symptom management particularly in light of her discontinuation of opioids. Time Spent: 60 minutes with getting 50% of this done in counseling regarding pain and symptom management, goals of care, review of current plans for initiating alcohol distribution, as well as coordination of care with facility staff and PCP
== END 2019-09-22 09:31 | disposition home or self-care (01) ==
LOC: PC 09:30
PROVIDERS: ATTEND Nurse Practitioner Adult Health
DX: Z51.5 Encounter for palliative care (principal); I27.20 Pulmonary hypertension, unspecified; G89.29 Other chronic pain; M54.9 Dorsalgia, unspecified; J44.9 Chronic obstructive pulmonary disease, unspecified; Z99.81 Dependence on supplemental oxygen; F10.10 Alcohol abuse, uncomplicated; R53.83 Other fatigue; R53.1 Weakness; F41.9 Anxiety disorder, unspecified; N18.3 Chronic kidney disease, stage 3 (moderate); Z66 Do not resuscitate; Z79.51 Long term (current) use of inhaled steroids; Z79.52 Long term (current) use of systemic steroids; Z79.891 Long term (current) use of opiate analgesic

== ENCOUNTER 2019-09-28 14:00 | Outpatient (CLI) | payer MEDICARE, OTHER ==
--- NOTE | 2019-09-28 17:56 | CONSULTATION NOTE ---
Palliative Care Follow Up - Referral Referring Provider: Dr. Heriberto Christopher Time of Visit: [id number] Referral setting: Assisted living Referral Reason: Acute on Chronic Back Pain/COPD/Pulm HTN - Information Sources Records reviewed: RN notes reviewed, Previous records reviewed History/Review of Systems obtained from: Patient Exam limitations: No limitations - History of Present Illness Update Brief HPI Update: This is a 78-year-old woman with end-stage COPD and pulmonary hypertension, with severe chronic back pain, alcohol misuse, and declining activity tolerance. She has multiple complex issues and presents with high symptom burden. She was tapered off her narcotics, this finished late last week, she presents today with exacerbated and escalating back pain. She reports 8-9 over 10, she has to frequently reposition, does demonstrate pain behaviors. She has been getting some relief with some topical rubs, this is short lasting, she had PT for massage today with some decrease in her muscle spasms. She had tried some Lidoderm patches, with some mild relief, these have been reordered and are now available.She has increased joint pain and discomfort, and is feeling somewhat overwhelmed. She also presents with withdrawal symptoms, specifically of diarrhea, low-grade anorexia and mild nausea. Her other taper included prednisone, she was tapered down to 10 mg and discontinued on 09/25. This probably was adding to her complexity of her osteoarthritis pain and back pain, she is on Arthotec just 1 time a day, and has been using acetaminophen 1000 mg 3 times daily with very little relief. She reports her breathing and respiratory distress has worsened some, her wheezing has decreased, and her cough is improved, it is her breathlessness that has worsened. I suspect this is multifactorial in origin as well, and attributed to her prednisone taper. She continues with headache pain, nasal pressure, no purulent drainage, she is tender across the top, I suspect her headache is also exacerbated by her decreased fluid intake. Patient has been allotted 2 glasses of wine, she has been drinking them. She reports it does help her relax, as well as help with her anxiety but has not helped with her pain as she had hoped. Discussed again that she needs to make a choice of the opioids versus wine, she feels like the opioids did not help her much, but is in acute distress today. Her other exacerbating factor has been she has not been able to sleep, she has been able to get to sleep, but awakens in pain and discomfort. She reports this is decreased her coping as well. Social History - Living Situation Living arrangement: Assisted living Living Situation: Alone Support System: Patient is lived at [facility] for 7 years, she is found this to be good fit, she is feeling quite supported. She does have 2 sons, one in [place]. She would like very much for him to be included in the conversation, did agree to call him tomorrow morning. Medications/Allergies - Medications Home Medications: Ambulatory Orders Medication Instructions Recorded Confirmed Cholecalciferol (Vitamin D3) 2,000 units PO DAILY 02/04/17 09/28/19 [Vitamin D3] Mometasone/Formoterol [Dulera 100 2 puffs INH BID 02/04/17 09/28/19 Mcg/5 Mcg Inhaler] Trazodone HCl 100 mg PO QPM 02/04/17 09/28/19 diphenhydrAMINE [Benadryl] 50 mg PO QPM PRN 02/04/17 09/28/19 Escitalopram [Lexapro] 10 mg PO DAILY 02/19/17 09/28/19 Loperamide [Imodium] 2 - 4 mg PO PRN PRN MDD NTE 6 tabs 09/29/17 09/28/19 in 24 hours Acetaminophen [Tylenol] 1,000 mg PO Q8H PRN 01/30/18 09/28/19 Ipratropium [place] 2 sprays OMID Q8H PRN 01/30/18 09/28/19 Saccharomyces Boulardii [Florastor] 250 mg PO DAILY 01/30/18 09/28/19 Triamcinolone 0.1% Cream [Kenalog 1 applic TOP BID 01/30/18 09/28/19 0.1% Cream] Diphenoxylate/Atropine [Lomotil] 1 tab PO TID PRN #30 tablet 02/05/18 09/28/19 Magnesium Oxide [Mag Ox] 400 mg PO BIDWM tablet 02/05/18 09/28/19 Ambrisentan [Letairis] 10 mg PO DAILY 09/29/18 09/28/19 Diclofenac Sodium/Misoprostol 1 tab PO DAILY 09/29/18 09/28/19 [Diclofenac-Misoprost 50-200 Tb] Lovastatin 40 mg PO QPM 09/29/18 09/28/19 Omeprazole 40 mg PO DAILY 09/29/18 09/28/19 Sildenafil Citrate 20 mg PO TID 09/29/18 09/28/19 Spironolactone 25 mg PO DAILY 09/29/18 09/28/19 Tiotropium [place] [Spiriva 2 inh PO DAILY 09/29/18 09/28/19 Respimat] Bismuth Subsalicylate [[place] 15 ml PO DAILY PRN 10/20/18 09/28/19 Bismuth] Magnesium Hydroxide [Milk of 30 ml PO DAILY PRN 10/20/18 09/28/19 Magnesia] Potassium Chloride [K-Dur] 20 meq PO DAILY MDD with meals 12/10/18 09/28/19 Albuterol Sulfate [Proair 2 puffs PO Q4H PRN 04/03/19 09/28/19 Respiclick] Carbamide Peroxide Otic Drop 5 drops EACHEAR DAILY PRN MDD For 04/03/19 09/28/19 [Debrox Otic Drops] 5 days then flush Docusate Sodium 100 mg PO DAILY PRN 04/03/19 09/28/19 Lidocaine Patch 5% [Lidoderm Patch] 1 patch TOP DAILY PRN MDD 16 04/03/19 09/28/19 Torsemide 20 mg PO DAILY 04/03/19 09/28/19 Guaifenesin [Mucinex] 600 tab PO DAILY 07/01/19 09/28/19 Multivit-Min/FA/Lycopen/Lutein 1 tab PO DAILY 07/01/19 09/28/19 [Centrum Silver Men Tablet] Senna [Senokot] 2 tab PO QPM PRN 07/01/19 09/28/19 Sodium Fluoride [Prevident 5000] 1 ea PO DAILY 07/01/19 09/28/19 predniSONE [Prednisone] 15 mg PO DAILY 07/08/19 09/28/19 Capsaicin 1 applic TOP BID 08/14/19 09/28/19 Naloxone HCl [Narcan] 1 spray OMID Q5MIN PRN 08/14/19 09/28/19 - Allergies Allergies/Adverse Reactions: Allergies Allergy/AdvReac Type Severity Reaction Status Date / Time Sulfa (Sulfonamide Allergy Mild Rash Verified 08/20/18 13:13 Antibiotics) Review of Systems - Constitutional Constitutional: reports: Fatigue, Weakness, Poor appetite, Weight loss (122-6 pounds this month). denies: Fever, Chills - Eyes Eyes: reports: Vision loss, Corrective lenses - Ears, Nose & Throat Ears, Nose & Throat: reports: Nasal congestion, Postnasal drainage, Dry mouth - Cardiovascular Cardiovascular: reports: Lightheadedness, Exertional dyspnea, Decr. exercise tolerance, Orthopnea - Respiratory Respiratory: reports: Cough (improved), Sputum production (moist cough), Wheezing, Orthopnea, SOB at rest, SOB with exertion - Gastrointestinal Gastrointestinal: reports: Diarrhea (worsened over weekend; responded to loperamide), Poor appetite, Early satiety. denies: Nausea - Genitourinary Genitourinary: reports: Frequency - Musculoskeletal Musculoskeletal: reports: Muscle pain, Back pain, Muscle aches, Stiffness, Limited range of motion, Muscle weakness, Joint pain, Assistive devices (walker) - Integumentary Integumentary: reports: Pruritis (improved), Dryness - Neurological Neurological: reports: General weakness, Headache (reports sinus pressure headache over eyebrows) - Psychiatric Psychiatric: reports: Depression, Anxiety - All Other Systems All Other Systems: reports: Reviewed and negative Physical Exam - Vital Signs Temperature: 98.3 C Pulse Rate: 97 Respiratory Rate: 20 (32 with activity) O2 Saturation: 97 (7 liters) Blood Pressure: 112/62 - Physical Exam General Appearance: positive: Alert, Severe distress, Anxious Eyes Bilateral: positive: Normal inspection, Other (periorbital edema) ENT: negative: Purulent nasal drainage Neck: positive: Trachea midline Cardiovascular: positive: Regular rate & rhythm, Tachycardia Respiratory: positive: Diminished throughout, Other (respiratory effort with any movement/conversation;). negative: Wheezes, Rales, Rhonchi Abdomen: positive: Non-tender, Soft Skin: positive: Pallor Extremities: positive: No pedal edema Neurologic/Psychiatric: positive: Oriented x3, Weakness, Depressed mood/affect, Flat affect Palliative Care - POLST Patient has POLST: Yes POLST Status: DNR, Selective Treatment Pain: Pain worsening Tiredness/Fatigue: Severe (7-10) Drowsiness/Sedation: Mild (1-3) Nausea: None Depression: Moderate (4-6) Anxiety: Severe (7-10) Dyspnea: Severe (7-10) Anorexia: Moderate (4-6), Weight loss Sleep: Sleeps poorly Constipation: No Feelings of wellbeing/Perceived Quality of Life: Poor, Worsening Performance Status: Patient has been mostly in her room, she can ambulate short distances, but does get quite breathless easily. With her increase in her dyspnea and discomfort, has been very limited. She has had staff available to help her with IADLs. She is still able to toilet, feed herself, and has had frequent staff checks - Palliative Care Discussion: Patient is feeling somewhat overwhelmed, she is discouraged at the level and severity of her pain. She does not want to go back to opioids if possible, but feels like she currently cannot cope with the level of discomfort she has right now. We did discuss weighing benefits of burdens of alcohol versus narcotics, and regulations that the facility needs to follow. She would like to try to manage without returning back to her narcotics, we also discussed if her symptoms worsened particularly around her respiratory compromise, she would need to seek more urgent evaluation, verbalized understanding. Patient's focus has been wanting to spend what time she has left, with things that she enjoys, which would include drinking. She does feel somewhat stressed with the loss of control. Impression and Recommendations - Palliative Care Impression: This is a 78-year-old woman who has end-stage COPD, progressive pulmonary arterial hypertension, severe chronic pain syndrome, high anxiety, and alcohol abuse/misuse disorder. Patient currently experiencing some withdrawal symptoms related to her titration of her opioids, and exacerbation of her dyspnea with titration of her prednisone, and at high risk for sequela of an event related to her fragile status. Palliative care providing support for pain and symptom management and anticipatory guidance as well as coordination of care. Recommendations/Counseling Done: 1. Acute on chronic pain. This is multifactorial in origin, she is having some withdrawals regarding her narcotic taper over 1 month. She was on a fairly high doses of narcotics, but with little effect in her mind. She also has a inflammatory component regarding her osteo-arthritis, and chronic back pain. She is on Arthrotec, she was asking about further NSAIDs. We did discuss in the context of her CKD stage III this would not be appropriate, but could restart her prednisone, discussed her regimen, she reports she did feel best on 20 mg, did not feel as good on 10, agreed would start at 15 mg and titrate down given concerns for her immunocompromise. Patient to continue to receive PT and massage 3 times a week, orders written to initiate her Lidoderm patches on a.m. and off at p.m., can stay on 12 to 16 hours. Patient to continue use alternating cold and heat and various topicals she has available, staff have been accommodating to assist her. 2. Insomnia. Patient currently on low-dose trazodone 50 mg, reports sleeplessness adding to her distress, given she is no longer on MS Contin at bedtime, will go ahead and increase to 100 mg as it is a tool we can use to add to her current distress. 3. Headache. Suspect this is multifactorial as well, she does have her liter fluid at 7 L, does not get any relief from her ipratropium bromide nasal spray, discussed adding Flonase though we will be starting on steroids so most likely not appropriate at this point. She is going to try her [place] pot, also discussed could be dehydration. She does report decreased intake with her most recent issues with pain and more isolation in her room. 4. COPD. Patient at high risk for sequela of pneumonia, patient reports cough is improved though her respiratory compromise can remains severe. This may been exacerbated by her discontinuing of her prednisone 10 mg on 09/25 fairly abruptly. Counseling provided regarding weighing benefits and burdens and risk of restarting prednisone with milk treater concerns, patient at this point in time would like to move forward as far as quality of life issues. Will titrate back to 10 mg after pain better managed. Discussed if worsening respiratory status, needed to have a low threshold for accessing acute evaluation, patient did verbalize understanding. 5. Anxiety. Patient is feeling somewhat overwhelmed by her high symptom burden, her declining functional status, and worries given her current condition. 6. Advanced care planning. Patient continues to be quite frail, presents as a failure to thrive, with increasing symptom burden and risk for hospitalization. Agreed would touch base with her son tomorrow, patient will reach out if needs further assistance, will check at the end of week. Time Spent: 45 minutes with greater than 50% of this done in counseling regarding pain and symptom management, risks and benefits of opioids versus alcohol, and coordination of care with staff and PCP
== END 2019-09-28 14:01 | disposition home or self-care (01) ==
LOC: PC 14:00
PROVIDERS: ATTEND Nurse Practitioner Adult Health
DX: Z51.5 Encounter for palliative care (principal); J44.9 Chronic obstructive pulmonary disease, unspecified; I27.20 Pulmonary hypertension, unspecified; G89.29 Other chronic pain; M54.9 Dorsalgia, unspecified; M19.90 Unspecified osteoarthritis, unspecified site; F10.10 Alcohol abuse, uncomplicated; R51 Headache; F41.9 Anxiety disorder, unspecified; N18.3 Chronic kidney disease, stage 3 (moderate); G47.00 Insomnia, unspecified; F32.9 Major depressive disorder, single episode, unspecified; R35.0 Frequency of micturition; R19.7 Diarrhea, unspecified; R63.0 Anorexia; R11.0 Nausea; Z66 Do not resuscitate; Z79.52 Long term (current) use of systemic steroids; Z79.51 Long term (current) use of inhaled steroids

== ENCOUNTER 2019-10-27 08:44 | Outpatient (CLI) | payer MEDICARE, OTHER ==
--- NOTE | 2019-10-27 10:55 | Ultrasound Report ---
Reason: THROMBOCYOPENIA Procedure Date: 10/27/2019 Accession Number: [id number] / [id number] Procedure: US - Abdomen Complete CPT Code: Addended Final Report FULL RESULT: EXAM: ABDOMEN ULTRASOUND EXAM DATE: 10/27/2019 10:04 AM. CLINICAL HISTORY: Thrombocytopenia. COMPARISON: None. TECHNIQUE: Real-time scanning was performed with static images obtained. FINDINGS: Liver: Increased echogenicity and coarsened echotexture. Geographically decreased echogenicity of parenchyma near gallbladder fossa, potentially focal fatty sparing. Liver measures at least 13.1 cm. Main portal vein flow: Hepatopetal. Gallbladder: Gallbladder demonstrates minimally prominent wall thickness, 3 mm. The sonographic Pham's sign is negative. There is no pericholecystic fluid. Gallbladder is only minimally distended. Biliary System: Echogenic shadowing 0.6 cm focus in the CBD, potential choledocholithiasis in the setting of dilated common bile duct of up to 1 cm. Mild intrahepatic biliary ductal dilation. Pancreas: Visualized portion is unremarkable. Kidneys: Right: 9.1 cm longitudinally. Normal. No contour-deforming mass, stones, or hydronephrosis. Left: 10.1 cm longitudinally. Upper pole simple cyst measuring up to 3.2 cm. No contour-deforming solid mass, stones, or hydronephrosis. Spleen: 10.1 cm. Normal in size and echotexture. Aorta and Inferior Vena Cava: Unremarkable. Other: None. IMPRESSION: Choledocholithiasis. RADIA The call report notification system was initiated by Dr. Joaquín Ferrell at 10:54 AM on 10/27/2019. ADDENDUM: 10/27/19 13:30 The above call report findings were discussed with Cam Amato by Dr. Joaquín Ferrell at 01:30 PM on 10/27/2019.
== END 2019-10-27 08:45 | disposition home or self-care (01) ==
LOC: DI 08:44
PROVIDERS: ATTEND Internal Medicine
DX: K80.50 Calculus of bile duct without cholangitis or cholecystitis without obstruction (principal); D69.6 Thrombocytopenia, unspecified
CPT/HCPCS: 76700

== ENCOUNTER 2019-11-12 23:39 | Outpatient (CLI) | payer MEDICARE, OTHER | END 2019-11-12 23:40 | disposition critical access hospital (66) | LOC: EMS 23:39 | PROVIDERS: ATTEND Surgery | DX: S81.819A Laceration without foreign body, unspecified lower leg, initial encounter (principal); W01.0XXA Fall on same level from slipping, tripping and stumbling without subsequent striking against object, initial encounter; Y92.009 Unspecified place in unspecified non-institutional (private) residence as the place of occurrence of the external cause | CPT/HCPCS: A0425; A0429 ==

== ENCOUNTER 2019-11-12 23:55 | Emergency (ER) | payer MEDICARE, OTHER ==
[2019-11-13] MEDS ORDERED: LIDOCAINE 1%-EPI 1:100000 20 ML MDV SUBQ STA (00:01)
[2019-11-13 00:02] VITALS: BP 148/67
[2019-11-13] MEDS ORDERED: TETANUS/DIPHTHERIA/PERTUSSIS 0.5 ML SYRINGE IM ONE (00:04)
--- NOTE | 2019-11-13 00:04 | ED Physician Documentation ---
History of Present Illness - Stated complaint Stated Complaint: GLF/LEG LAC - Chief complaint Chief Complaint: Laceration - Additonal information Additional information: This is a 77-year-old female with history of COPD on oxygen, CHF, hypertension, GERD, who presents with a laceration to her left lower leg. Patient was walking using her walker and she tripped over her oxygen line, causing her to impact her walker with her left leg and sliced it open. There was bleeding which was controlled with direct pressure. She has been able to walk on the leg since this happened. She does not remember the last time she had a tetanus shot. She otherwise denies complaints - her breathing is at her baseline, she has no chest pain, did not lose consciousness or hit her head, and she is very clear that this was a trip over her oxygen line. Review of Systems Constitutional: denies: Fever Cardiac: denies: Chest pain / pressure GI: denies: Abdominal Pain Skin: reports: Laceration (s) Musculoskeletal: denies: Neck pain, Back pain PD PAST MEDICAL HISTORY - Past Medical History Cardiovascular: Congestive heart failure, High cholesterol Respiratory: COPD, Pneumonia, Shortness of breath, Other Neuro: Headaches Endocrine/Autoimmune: None GI: GERD : Incontinence, Frequency HEENT: Chronic sinusitis Psych: Depression, Anxiety Musculoskeletal: Osteoarthritis, Chronic back pain, Other Derm: None - Past Surgical History Past Surgical History: Yes General: 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 /[employer] IN [employer]ING: Dilation and currettage, Hysterectomy Cardiovascular: Cardiac catheterization HEENT: Cataracts, Tonsil/Adenoidectomy, Other - Present Medications Home Medications: Ambulatory Orders Medication Instructions Recorded Confirmed Cholecalciferol (Vitamin D3) 2,000 units PO DAILY 02/04/17 10/14/19 [Vitamin D3] Mometasone/Formoterol [Dulera 100 2 puffs INH BID 02/04/17 10/14/19 Mcg/5 Mcg Inhaler] Trazodone HCl 100 mg PO QPM 02/04/17 10/14/19 diphenhydrAMINE [Benadryl] 50 mg PO QPM PRN 02/04/17 10/14/19 Escitalopram [Lexapro] 10 mg PO DAILY 02/19/17 10/14/19 Loperamide [Imodium] 2 - 4 mg PO PRN PRN MDD NTE 6 tabs 09/29/17 10/14/19 in 24 hours Acetaminophen [Tylenol] 1,000 mg PO Q8H PRN 01/30/18 10/14/19 Ipratropium [place] 2 sprays OMID Q8H PRN 01/30/18 10/14/19 Saccharomyces Boulardii [Florastor] 250 mg PO DAILY 01/30/18 10/14/19 Triamcinolone 0.1% Cream [Kenalog 1 applic TOP BID 01/30/18 10/14/19 0.1% Cream] Diphenoxylate/Atropine [Lomotil] 1 tab PO TID PRN #30 tablet 02/05/18 10/14/19 Magnesium Oxide [Mag Ox] 400 mg PO BIDWM tablet 02/05/18 10/14/19 Ambrisentan [Letairis] 10 mg PO DAILY 09/29/18 10/14/19 Diclofenac Sodium/Misoprostol 1 tab PO DAILY 09/29/18 10/14/19 [Diclofenac-Misoprost 50-200 Tb] Lovastatin 40 mg PO QPM 09/29/18 10/14/19 Omeprazole 40 mg PO DAILY 09/29/18 10/14/19 Sildenafil Citrate 20 mg PO TID 09/29/18 10/14/19 Spironolactone 25 mg PO DAILY 09/29/18 10/14/19 Tiotropium [place] [Spiriva 2 inh PO DAILY 09/29/18 10/14/19 Respimat] Bismuth Subsalicylate [[place] 15 ml PO DAILY PRN 10/20/18 10/14/19 Bismuth] Magnesium Hydroxide [Milk of 30 ml PO DAILY PRN 10/20/18 10/14/19 Magnesia] Potassium Chloride [K-Dur] 20 meq PO DAILY MDD with meals 12/10/18 10/14/19 Albuterol Sulfate [Proair 2 puffs PO Q4H PRN 04/03/19 10/14/19 Respiclick] Carbamide Peroxide Otic Drop 5 drops EACHEAR DAILY PRN MDD For 04/03/19 10/14/19 [Debrox Otic Drops] 5 days then flush Docusate Sodium 100 mg PO DAILY PRN 04/03/19 10/14/19 Lidocaine Patch 5% [Lidoderm Patch] 1 patch TOP DAILY PRN MDD 16 04/03/19 10/14/19 Torsemide 20 mg PO DAILY 04/03/19 10/14/19 Guaifenesin [Mucinex] 600 tab PO DAILY 07/01/19 10/14/19 Multivit-Min/FA/Lycopen/Lutein 1 tab PO DAILY 07/01/19 10/14/19 [Centrum Silver Men Tablet] Senna [Senokot] 2 tab PO QPM PRN 07/01/19 10/14/19 Sodium Fluoride [Prevident 5000] 1 ea PO DAILY 07/01/19 10/14/19 predniSONE [Prednisone] 15 mg PO DAILY 07/08/19 10/14/19 Capsaicin 1 applic TOP BID 08/14/19 10/14/19 Naloxone HCl [Narcan] 1 spray OMID Q5MIN PRN 08/14/19 10/14/19 - Allergies Allergies/Adverse Reactions: Allergies Allergy/AdvReac Type Severity Reaction Status Date / Time Sulfa (Sulfonamide Allergy Mild Rash Verified 10/14/19 15:07 Antibiotics) - Social History Does the pt smoke?: No Smoking Status: Former smoker Does the pt drink ETOH?: No Does the pt have substance abuse?: No - Immunizations Immunizations are current?: Yes - POLST Patient has POLST: Yes POLST Status: Full Code PD ED PE NORMAL - Vitals Vital signs reviewed: Yes - General General: Alert and oriented X 3, No acute distress - HEENT HEENT: Atraumatic, Other (NC in place) - Neck Neck: No bony TTP - Cardiac Cardiac: RRR - Respiratory Respiratory: Other (On chronic O2, no respiratory distress. Somewhat distant/diminished breath sounds without wheeze) - Abdomen Abdomen: Soft, Non tender, Non distended - Extremities Extremities: Other (There is a 6cm laceration that extends into the subcutaneous tissues of the L anterior lower leg, along with associated superfical skin tear of 4cm. Bleeding is controlled. Limb is neurovascularly intact, no bony tenderness, pt is able to walk on it.) - Neuro Neuro: Alert and oriented X 3, No motor deficit, No sensory deficit, Normal speech Results - Vitals Vitals: Vital Signs - 24 hr 11/12/19 23:59 Temperature 37 C Heart Rate 72 Respiratory 16 Rate Blood Pressure 148/67 H O2 Saturation 99 Oxygen O2 Source Nasal cannula Oxygen Flow Rate 6 Procedures - Laceration (location) L lower leg Length in cm: 6 Wound type: Linear, Into subcut fat Neurovascular status: Sensory intact, Motor intact, Vascular intact Anesthesia: Lidocaine 1% Wound Preparation: Irrigated copiously NS Skin layer closure: Nylon (Simple interrupted sutures with 4-0 ethilon placed to approximate the laceration, with 3 steristrips to close the lower superficial skin tear.), Steri strips Other: Patient tolerated well, No complications, Neurovascular intact, Dressing applied, Tetanus booster given Complexity: Simple PD MEDICAL DECISION MAKING - ED course ED course: Pt presents with a skin tear after a clearly mechanical trip/injury to her leg. She has multiple medical comorbidities but feels she is at her baseline, denies complaints other than wanting the laceration repaired. Wound was repaired, tetanus updated, wound care and follow up for suture removal discussed. Pt agreed and was discharged home with ambulance transfer given her chronic O2 requirement. Departure - Departure Disposition: 01 Home, Self Care Clinical Impression: Laceration Condition: Good Instructions: ED Laceration All Follow-Up: Heriberto Christopher MD [Primary Care Provider] - (In 10-14 days for suture removal) Comments: We stitched up the cut on your leg. Please keep it dry for 24 hours. After this you can clean it with mild soap and water run water over it, but do not scrub at the wound. Put a nonstick bandage over top of it, and keep it covered with a clean simple bandage. If you are developing signs of infection such as redness around the wound, or pus draining from the wound, return to the emergency department. Have your stitches checked for removal in 10 to 14 days. If you are developing any new or worsening symptoms return to the emergency department Discharge Date/Time: 11/13/19 00:42
== END 2019-11-13 00:42 | disposition home or self-care (01) ==
LOC: EDUNIT# → ED 23:55
DX: S81.812A Laceration without foreign body, left lower leg, initial encounter (principal); W01.0XXA Fall on same level from slipping, tripping and stumbling without subsequent striking against object, initial encounter; Y93.01 Activity, walking, marching and hiking; Z23 Encounter for immunization; J44.9 Chronic obstructive pulmonary disease, unspecified; Z99.81 Dependence on supplemental oxygen; I11.0 Hypertensive heart disease with heart failure; I50.9 Heart failure, unspecified; K21.9 Gastro-esophageal reflux disease without esophagitis; Z87.891 Personal history of nicotine dependence
CPT/HCPCS: 12002; 90471

== ENCOUNTER 2019-11-13 00:46 | Outpatient (CLI) | payer MEDICARE, OTHER | END 2019-11-13 00:47 | disposition home or self-care (01) | LOC: EMS 00:46 | PROVIDERS: ATTEND Surgery | DX: S81.819A Laceration without foreign body, unspecified lower leg, initial encounter (principal); Z99.81 Dependence on supplemental oxygen | CPT/HCPCS: A0425; A0428 ==

== ENCOUNTER 2019-11-30 13:30 | Outpatient (CLI) | payer MEDICARE, OTHER ==
--- NOTE | 2019-11-30 17:01 | CONSULTATION NOTE ---
Palliative Care Follow Up - Referral Referring Provider: Dr. Heriberto Christopher Time of Visit: [id number] Referral setting: Assisted living Referral Reason: Skin tear/laceration/ETOH abuse/Chronic Pain - Information Sources Records reviewed: Previous records reviewed History/Review of Systems obtained from: Patient, Caregiver (update of concerns from facililty staff) Exam limitations: No limitations - History of Present Illness Update Brief HPI Update: This is a 78-year-old woman with end-stage COPD and pulmonary hypertension, with extensive history of multiple comorbidities, including exacerbation of her alcohol abuse. Patient has had now for falls, to acute with injury, she was seen 11/12 in the emergency room with a laceration of her left lower leg, currently evaluated does appear to be well approximated, stitches are intact, though does appear to need a few more days of healing before removing. Skin is quite thinned, bruised, and friable. No signs or symptoms of infection, though significant bruising noted. Patient had a second fall, which involved facial bruising, she did not go to the ED, but did break 2 teeth. Both of these she attributes to tripping and or balance issues. Staff report patient has been not staying within the allotted 2 glasses of wine, and has had her paid caregiver bringing in wine. Their perception is she was inebriated, patient's perception is that she is only at the most has had an extra "1 or 2". Patient has a long and extensive history of alcohol abuse, originally attributed to significant chronic back pain, was weaned off at one point and started on opioids through the pain clinic, she felt that the alcohol was more effective when started drinking again this summer, and has since weaned off her chronic high dose opioids. Patient's other main complaint is she still having explosive diarrhea after she eats in the a.m. She reports she gets up has a regular BM, takes her medications, has breakfast, and then needs Imodium to settle it down. This is been problematic since she has stopped her opioids, we had discontinued her magnesium, her bowel meds, will look at discontinue her probiotic to see if this is adding to it. She is having increase tenderness and gas, in follow up she did have US of abdomen 10/27 in work up for thrombocytopenia that did show choledocholithiasis, will follow up with PCP if further referral recommended. Patient does perceive her respiratory status continues to decline, she reports is fairly slow nothing acute. She is only able to ambulate short distances in her apartment, when she does perform any kind of activities, it takes her about 10 minutes to recover. She is using a wheelchair to go to meals, and mostly is sedentary. She feels her lower extremity weakness is worsening, she is participating physical therapy 3 times a week, she feels her gait is more imbalanced, Social History - Living Situation Living arrangement: Assisted living Support System: Patient lives at [facility], she does have some paid caregiving support for errands and transportation. She has lived there for about 7 years. She does have 2 sons, one in [place], and one in [facility]. Unfortunately she was not able to spend time with her family over [place], they do have activities planned coming this weekend. She is feeling more anxiety about leaving her familiar setting with her increasing problems, and was actually somewhat relieved. Medications/Allergies - Medications Home Medications: Ambulatory Orders Medication Instructions Recorded Confirmed Cholecalciferol (Vitamin D3) 2,000 units PO DAILY 02/04/17 11/30/19 [Vitamin D3] Mometasone/Formoterol [Dulera 100 2 puffs INH BID 02/04/17 11/30/19 Mcg/5 Mcg Inhaler] Trazodone HCl 100 mg PO QPM 02/04/17 11/30/19 diphenhydrAMINE [Benadryl] 50 mg PO QPM PRN 02/04/17 11/30/19 Escitalopram [Lexapro] 10 mg PO DAILY 02/19/17 11/30/19 Loperamide [Imodium] 2 - 4 mg PO PRN PRN MDD NTE 6 tabs 09/29/17 11/30/19 in 24 hours Acetaminophen [Tylenol] 1,000 mg PO TID 01/30/18 11/30/19 Ipratropium Omar 2 sprays OMID Q8H PRN 01/30/18 11/30/19 Triamcinolone 0.1% Cream [Kenalog 1 applic TOP BID 01/30/18 11/30/19 0.1% Cream] Diphenoxylate/Atropine [Lomotil] 1 tab PO TID PRN #30 tablet 02/05/18 11/30/19 Ambrisentan [Letairis] 10 mg PO DAILY 09/29/18 11/30/19 Diclofenac Sodium/Misoprostol 1 tab PO DAILY 09/29/18 11/30/19 [Diclofenac-Misoprost 50-200 Tb] Lovastatin 40 mg PO QPM 09/29/18 11/30/19 Omeprazole 40 mg PO DAILY 09/29/18 11/30/19 Sildenafil Citrate 20 mg PO TID 09/29/18 11/30/19 Spironolactone 25 mg PO DAILY 09/29/18 11/30/19 Tiotropium Omar [Spiriva 2 inh PO DAILY 09/29/18 11/30/19 Respimat] Bismuth Subsalicylate [[place] 15 ml PO DAILY PRN 10/20/18 11/30/19 Bismuth] Magnesium Hydroxide [Milk of 30 ml PO DAILY PRN 10/20/18 11/30/19 Magnesia] Potassium Chloride [K-Dur] 20 meq PO DAILY MDD with meals 12/10/18 11/30/19 Albuterol Sulfate [Proair 2 puffs PO Q4H PRN 04/03/19 11/30/19 Respiclick] Carbamide Peroxide Otic Drop 5 drops EACHEAR DAILY PRN MDD For 04/03/19 11/30/19 [Debrox Otic Drops] 5 days then flush Docusate Sodium 100 mg PO DAILY PRN 04/03/19 11/30/19 Lidocaine Patch 5% [Lidoderm Patch] 1 patch TOP DAILY PRN MDD 16 04/03/19 11/30/19 Torsemide 20 mg PO DAILY 04/03/19 11/30/19 Guaifenesin [Mucinex] 600 tab PO DAILY 07/01/19 11/30/19 Multivit-Min/FA/Lycopen/Lutein 1 tab PO DAILY 07/01/19 11/30/19 [Centrum Silver Men Tablet] Senna [Senokot] 2 tab PO QPM PRN 07/01/19 11/30/19 Sodium Fluoride [Prevident 5000] 1 ea PO DAILY 07/01/19 11/30/19 predniSONE [Prednisone] 14 mg PO DAILY MDD titrating down 07/08/19 11/30/19 1 mg week Capsaicin 1 applic TOP BID 08/14/19 11/30/19 Naloxone HCl [Narcan] 1 spray OMID Q5MIN PRN 08/14/19 11/30/19 - Allergies Allergies/Adverse Reactions: Allergies Allergy/AdvReac Type Severity Reaction Status Date / Time Sulfa (Sulfonamide Allergy Mild Rash Verified 10/14/19 15:07 Antibiotics) Review of Systems - Constitutional Constitutional: reports: Fatigue, Weight stable. denies: Fever, Chills - Ears, Nose & Throat Ears, Nose & Throat: reports: Nasal congestion, Dry mouth, Other (recently broken teeth with fall). denies: Mouth lesions - Cardiovascular Cardiovascular: reports: Exertional dyspnea, Decr. exercise tolerance, Orthopnea. denies: Chest pain, Edema - Respiratory Respiratory: reports: Cough, Sputum production, Wheezing, Orthopnea, SOB at rest, SOB with exertion. denies: Hemoptysis - Gastrointestinal Gastrointestinal: reports: Abdominal pain (cramping after AM meal with diarrhea), Other (reports increased gas). denies: Nausea - Genitourinary Genitourinary: reports: Frequency - Musculoskeletal Musculoskeletal: reports: Back pain, Stiffness, Limited range of motion, Muscle weakness, Assistive devices (uses walker in apartment;), Transfer issues (uses wheelchair in facililty to go to meals) - Integumentary Integumentary: reports: Dryness, Other (severe thinning of skin) - Neurological Neurological: reports: General weakness, Numbness (bilateral LE worsening; affecting gait), Abnormal gait - Psychiatric Psychiatric: reports: Depression, Anxiety - Hematologic/Lymphatic Hematologic/Lymphatic: reports: Anemia, Bruising (related to falls and spontaneous UE). denies: Recurrent infections - All Other Systems All Other Systems: reports: Reviewed and negative Physical Exam - Vital Signs Temperature: 96.5 C Pulse Rate: 79 Respiratory Rate: 20 O2 Saturation: 98 (on 6 liters) Blood Pressure: 102/62 (sitting) - Physical Exam General Appearance: positive: Alert, Mild distress Eyes Bilateral: positive: Normal inspection, Other (bruising around orbital area; no tenderness or swelling in socket) ENT: positive: No signs of dehydration. negative: Oral lesions Neck: positive: No JVD, Trachea midline Cardiovascular: positive: Regular rate & rhythm Respiratory: positive: Diminished throughout. negative: No respiratory distress (with activity or conversation increased respiratory effort), Wheezes, Rales, Rhonchi Abdomen: positive: Soft, Tenderness (upper abdoment). negative: Mass Skin: positive: Pallor, Dryness, Bruising, Wound (8 cm lacertation; edges poorly proximated; held together with stitches upper wound; lower wound folded over tear; thinned red but no erythema or drainage). negative: Jaundice Extremities: positive: No pedal edema Neurologic/Psychiatric: positive: Oriented x3, Weakness, Depressed mood/affect, Flat affect Palliative Care - POLST Patient has POLST: Yes POLST Status: DNR, Selective Treatment Pain: Pain worsening, Location (back pain. uses APAP 1000 mg TID, dislikes q 8 hours dosing; uses patches/lidocaine; arthotec, CBD topical and prednisone) Tiredness/Fatigue: Moderate (4-6) Drowsiness/Sedation: Mild (1-3) Nausea: Mild (1-3) Anorexia: None Dyspnea: Severe (7-10) Depression: Mild (1-3) Anxiety: Moderate (4-6) Feelings of wellbeing/Perceived Quality of Life: Fair, Acceptable, Worsening Sleep: Variable sleep pattern Constipation: No Performance Status: Patient with decline in functional status, increased lower extremity weakness, difficulty with balance, and increased dyspnea. She is needing assistance with bathing and pacing herself for other activities. The staff do transport her by wheelchair for meals and activities. - Palliative Care Discussion: Patient is quite pragmatic, says things "are as they are". She is somewhat "miffed" about the regulations and rules imposed on her regarding her increased use of alcohol, this was again reviewed regarding her increase in falls, concern for her well-being, and the facility regulations regarding reporting and needing to control circumstances that might add to or mitigate her risk. She does perceive her condition as deteriorating, but very slow. She is hopeful to continue as long as her quality of life does not deteriorate more, she is concerned about when she would be more dependent. Impression and Recommendations - Palliative Care Impression: This is a 78-year-old woman who is end-stage COPD, progressive pulmonary arterial hypertension, severe chronic pain syndrome, alcohol abuse disorder exacerbated, and high anxiety. Patient with recent falls, including laceration to her left lower extremity, and injury with facial bruising and broken teeth. Patient has not been adherent to restrictions on her intake, most likely adding to her fall risk. Patient on long-term on steroids, has very thin and skin, laceration is healing quite slowly. Palliative care continue to provide support regarding pain and symptom management and anticipatory guidance. Recommendations/Counseling Done: 1. Choledocholithiasis. Patient presents with some persistent abdominal discomfort, gas, and intermittent diarrhea. Patient with recent abdominal ultrasound, that did show a 0.6 cm focus in CBD, in the setting of a dilated common bile duct up to 1 cm. With mild intrahepatic biliary ductal dilatation. Will defer and follow-up with PCP regarding referral if indicated. Review medication list and timing, will re-time it for convenience and for decreased pill burden in a.m. 2. Acute on chronic pain. This is multifactorial in origin, she is currently being managed on fentanyl 1000 mg 3 times daily, lidocaine patch, Arthrotec, supported with her prednisone. Patient reports pain is still quite severe, but is tolerable, perceives that her wine does help mitigate her pain as well as help relax her to better manage her back spasms. 3. Insomnia. Patient currently on trazodone 100 mg at bedtime, is to supplement both her sleep as well as her pain. 4. COPD. Patient remains at high risk for sequela of pneumonia, she does not have any increased signs of cough or respiratory compromise today, just has more baseline shortness of breath and more activity intolerance. Discussion regarding prednisone, as she is having more side effects, she does have a cushingoid appearance, as well as the thinned skin, and more bruising. We had decreased it down to 10 mg, had increased it back up with her pain crisis, she is willing to try a more slow taper. Will taper by 1 mg weekly until down to prednisone 10 mg and revisit. 5. Left lower extremity laceration. Patient is due to have her stitches out, skin is very thin and compromised secondary to her long-term steroid use. No signs or symptoms of infection, but does appear could use a few more days of healing. Agreement to leave it intact and remove stitches in 3 days, appointment made. We will continue daily dressing changes and monitoring. She also has a skin flap that does appear to be adhering, no other changes at this time. 6. Alcohol abuse. Joel discussion with patient regarding concerns of the facility, agreements to stay within allotted 2 glasses of wine a day, concerns regarding having caregiver bring it in. Facility is already talked to the caregiver who brought it in, and has asked that they cease supporting this behavior. Particularly in the context of her most recent fall and injury. Patient in agreement to comply, has also agreed to room sweeps if she is present, recognizing that the facility does need to provide a safe environment. 7. Advanced care planning. Patient does have a POLST in place, With DNA R and selective treatment. Patient would still accept hospitalization for her pneumonia and her respiratory distress, she does prefer [facility] with her avionics integration engineer support. If it was end-of-life she would like a comfortable respectful . Time Spent: 60 minutes with greater than 50% of this done in counseling regarding compliance with alcohol restrictions, follow-up and coordination of care regarding wound care left lower extremity, coordination of care with facility regarding rescheduling of medications.
== END 2019-11-30 13:31 | disposition home or self-care (01) ==
LOC: PC 13:30
PROVIDERS: ATTEND Nurse Practitioner Adult Health
DX: Z51.5 Encounter for palliative care (principal); K80.50 Calculus of bile duct without cholangitis or cholecystitis without obstruction; R19.7 Diarrhea, unspecified; G89.4 Chronic pain syndrome; G47.00 Insomnia, unspecified; J44.9 Chronic obstructive pulmonary disease, unspecified; F10.10 Alcohol abuse, uncomplicated; I27.20 Pulmonary hypertension, unspecified; S81.812D Laceration without foreign body, left lower leg, subsequent encounter; S00.83XD Contusion of other part of head, subsequent encounter; W19.XXXD Unspecified fall, subsequent encounter; Z79.899 Other long term (current) drug therapy; Z79.52 Long term (current) use of systemic steroids; Z79.891 Long term (current) use of opiate analgesic; Z66 Do not resuscitate

== ENCOUNTER 2019-12-03 13:56 | Outpatient (CLI) | payer MEDICARE, OTHER ==
--- NOTE | 2019-12-03 16:05 | CONSULTATION NOTE ---
Palliative Care Follow Up - Referral Referring Provider: Dr. Christopher Time of Visit: [id number] Referral setting: Assisted living Referral Reason: Laceration/Skin Tear LLE/URI - Information Sources Records reviewed: Previous records reviewed History/Review of Systems obtained from: Patient Exam limitations: No limitations - History of Present Illness Update Brief HPI Update: This is a 78 year old woman with end-stage COPD and pulmonary hypertension, with history of multiple comorbidities including recent exacerbation of her alcohol abuse. Patient did have an acute injury with laceration to her left lower extremity, unfortunately when her saw her on 11/30 stitches were not quite ready to come out. I am here today to remove the stitches, her skin is quite thinned and fragile secondary to prednisone use, her skin tear distal to stitched laceration, Did not it here, but is feeling in from bottom up though a ppears quite bruised and frail. Patient does present today with 2 to 3-day history of increased upper respiratory symptoms. She reports she has increased nasal congestion, postnasal drip, feels this is exacerbated her cough and shortness of breath. Her breath sounds are diminished throughout, she denies fever or chills, she is at high risk for bronchitis and pneumonia. She reports tijerina sputum, and decreased activity tolerance. Social History - Living Situation Living arrangement: Assisted living Living Situation: Alone Support System: Patient has lived at [facility] for over 7 years, she does have someone who helps provide support for transportation and errands. She has 2 sons one in [place] and one in [facility]. Unfortunately they were not able to gather over the holidays, she is looking forward to their gathering this weekend. Medications/Allergies - Medications Home Medications: Ambulatory Orders Medication Instructions Recorded Confirmed Cholecalciferol (Vitamin D3) 2,000 units PO DAILY 02/04/17 11/30/19 [Vitamin D3] Mometasone/Formoterol [Dulera 100 2 puffs INH BID 02/04/17 11/30/19 Mcg/5 Mcg Inhaler] Trazodone HCl 100 mg PO QPM 02/04/17 11/30/19 diphenhydrAMINE [Benadryl] 50 mg PO QPM PRN 02/04/17 11/30/19 Escitalopram [Lexapro] 10 mg PO DAILY 02/19/17 11/30/19 Loperamide [Imodium] 2 - 4 mg PO PRN PRN MDD NTE 6 tabs 09/29/17 11/30/19 in 24 hours Acetaminophen [Tylenol] 1,000 mg PO TID 01/30/18 11/30/19 Ipratropium Remus 2 sprays OMID Q8H PRN 01/30/18 11/30/19 Triamcinolone 0.1% Cream [Kenalog 1 applic TOP BID 01/30/18 11/30/19 0.1% Cream] Diphenoxylate/Atropine [Lomotil] 1 tab PO TID PRN #30 tablet 02/05/18 11/30/19 Ambrisentan [Letairis] 10 mg PO DAILY 09/29/18 11/30/19 Diclofenac Sodium/Misoprostol 1 tab PO DAILY 09/29/18 11/30/19 [Diclofenac-Misoprost 50-200 Tb] Lovastatin 40 mg PO QPM 09/29/18 11/30/19 Omeprazole 40 mg PO DAILY 09/29/18 11/30/19 Sildenafil Citrate 20 mg PO TID 09/29/18 11/30/19 Spironolactone 25 mg PO DAILY 09/29/18 11/30/19 Tiotropium Remus [Spiriva 2 inh PO DAILY 09/29/18 11/30/19 Respimat] Bismuth Subsalicylate [[place] 15 ml PO DAILY PRN 10/20/18 11/30/19 Bismuth] Magnesium Hydroxide [Milk of 30 ml PO DAILY PRN 10/20/18 11/30/19 Magnesia] Potassium Chloride [K-Dur] 20 meq PO DAILY MDD with meals 12/10/18 11/30/19 Albuterol Sulfate [Proair 2 puffs PO Q4H PRN 04/03/19 11/30/19 Respiclick] Carbamide Peroxide Otic Drop 5 drops EACHEAR DAILY PRN MDD For 04/03/19 11/30/19 [Debrox Otic Drops] 5 days then flush Docusate Sodium 100 mg PO DAILY PRN 04/03/19 11/30/19 Lidocaine Patch 5% [Lidoderm Patch] 1 patch TOP DAILY PRN MDD 16 04/03/19 11/30/19 Torsemide 20 mg PO DAILY 04/03/19 11/30/19 Guaifenesin [Mucinex] 600 tab PO DAILY 07/01/19 11/30/19 Multivit-Min/FA/Lycopen/Lutein 1 tab PO DAILY 07/01/19 11/30/19 [Centrum Silver Men Tablet] Senna [Senokot] 2 tab PO QPM PRN 07/01/19 11/30/19 Sodium Fluoride [Prevident 5000] 1 ea PO DAILY 07/01/19 11/30/19 predniSONE [Prednisone] 14 mg PO DAILY MDD titrating down 07/08/19 11/30/19 1 mg week Capsaicin 1 applic TOP BID 08/14/19 11/30/19 Naloxone HCl [Narcan] 1 spray OMID Q5MIN PRN 08/14/19 11/30/19 - Allergies Allergies/Adverse Reactions: Allergies Allergy/AdvReac Type Severity Reaction Status Date / Time Sulfa (Sulfonamide Allergy Mild Rash Verified 10/14/19 15:07 Antibiotics) Review of Systems - Constitutional Constitutional: reports: Fatigue, Weight stable. denies: Fever, Chills - Eyes Eyes: reports: Vision loss, Corrective lenses - Ears, Nose & Throat Ears, Nose & Throat: reports: Nasal congestion, Postnasal drainage, Hoarseness, Dry mouth - Cardiovascular Cardiovascular: reports: Exertional dyspnea, Decr. exercise tolerance - Respiratory Respiratory: reports: Cough (worsening for 2-3 days; more frequent and moist), Sputum production ([place] sputum), SOB at rest (worsening), SOB with exertion - Gastrointestinal Gastrointestinal: reports: Diarrhea (am and intermittent), Early satiety, Good appetite - Musculoskeletal Musculoskeletal: reports: Back pain (severe; reports worse off the opioids; persistant some relief with lidocaine patches), Assistive devices (walker in room), Transfer issues (longer distances) - Integumentary Integumentary: reports: Dryness, Nail changes - Neurological Neurological: reports: General weakness, Other (worsening balance; denies dizzyness but more difficulty with footing) - Psychiatric Psychiatric: reports: Depression, Anxiety - Hematologic/Lymphatic Hematologic/Lymphatic: reports: Bruising, Bleeding tendencies - All Other Systems All Other Systems: reports: Reviewed and negative Physical Exam - Vital Signs Temperature: 97.4 C Pulse Rate: 100 Respiratory Rate: 20 O2 Saturation: 94 (on 6 liters) Blood Pressure: 102/62 - Physical Exam General Appearance: positive: Alert, Moderate distress (respiratory effort worsened for few days), Anxious (has hair appointment; not wanting to be late) Eyes Bilateral: positive: Normal inspection ENT: positive: No signs of dehydration, Other (periorbital swelling;) Neck: positive: Trachea midline, Other (swelling/cushingnoid) Cardiovascular: positive: Regular rate & rhythm Respiratory: positive: Diminished throughout. negative: No respiratory distress (increased breathlessness with any activity), Wheezes Skin: positive: Bruising (from falls fading but significant hematoma on lower back right side), Wound (skin tear; laceration with stitches tender with removal, small amount of bleeding; skin tear distal about 2 x 3 cm not adhering; shallow bruised and reddened;) Extremities: positive: No pedal edema Neurologic/Psychiatric: positive: Oriented x3, Weakness, Depressed mood/affect, Flat affect Palliative Care - POLST Patient has POLST: Yes POLST Status: DNR, Selective Treatment Pain: Pain worsening, Location (lower back; worse with standing/weight bearing; Patient does feel like pain is worsening and pain was better controlled on opioids) Tiredness/Fatigue: Severe (7-10) Drowsiness/Sedation: Mild (1-3) Nausea: Mild (1-3) Anorexia: None, Weight loss (116.9 reports decreased appetite) Dyspnea: Severe (7-10), Comment (worse for last 2-3 days) Depression: Moderate (4-6) Anxiety: Moderate (4-6) Feelings of wellbeing/Perceived Quality of Life: Fair, Acceptable, Worsening Sleep: Sleeps poorly, Variable sleep pattern Constipation: No Performance Status: Patient is quite limited by her breathlessness, any kind of activity she has to have frequent breaks. She is getting ready to go get her hair done, and has increased anxiety about timing and getting going. Impression and Recommendations - Palliative Care Impression: This is a 79-year-old woman with advanced COPD, presenting with left lower extremity laceration from ground-level fall and skin tear. Skin is quite friable, bruising, and poor circulation at high risk for cellulitis. Patient's been on long-term steroids. Patient presents with several days of increased respiratory symptoms, at this point perceives mostly related to her nasal congestion and postnasal drip. Recommendations/Counseling Done: 1. Laceration left lower extremity. Edges better approximated today, stitches removed, with small amount of bleeding. Skin remains quite tender and friable. Steri-Strips applied. Skin tear distal, cleansed with normal saline, flap no nadherent, will need to heal from bottom up. Mepilex applied to create better healing environment, as well as wrap and frequent removal of Telfa was traumatizing wound bed. Instructions left for staff to change dressing on Saturday, and report to provider. Most likely only needs 1 more dressing change. 2. Upper respiratory infection. Patient attributes to postnasal drip and sinus congestion. Reports long-term sinusitis, has been many viral infections going on through the facility. Patient feels like she has plateaued, not worsening. Did offer patient opportunity for chest x-ray, as wanting to weigh benefits and burdens and use of antibiotics judiciously. Patient has been instructed if worsening, to contact PCP, urgent care, and or notify palliative care. 3. Alcohol abuse. Not addressed at this visit, follow-up with staff no further issues identified the last few days. Time Spent: 45 minutes with greater than 50% of this done regarding coordination of care with facility staff for dressing changes, counseling for instructions if worsening respiratory symptoms, follow-up on med changes, and stitches removed.
== END 2019-12-03 13:57 | disposition home or self-care (01) ==
LOC: PC 13:56
PROVIDERS: ATTEND Nurse Practitioner Adult Health
DX: Z51.5 Encounter for palliative care (principal); S81.812D Laceration without foreign body, left lower leg, subsequent encounter; S30.0XXD Contusion of lower back and pelvis, subsequent encounter; J06.9 Acute upper respiratory infection, unspecified; J32.9 Chronic sinusitis, unspecified; J44.9 Chronic obstructive pulmonary disease, unspecified; I27.20 Pulmonary hypertension, unspecified; F10.10 Alcohol abuse, uncomplicated; Z91.81 History of falling; Z79.52 Long term (current) use of systemic steroids; Z66 Do not resuscitate

== ENCOUNTER 2019-12-10 16:25 | Outpatient (CLI) | payer MEDICARE, OTHER ==
--- NOTE | 2019-12-10 17:44 | CONSULTATION NOTE ---
Palliative Care Follow Up - Referral Referring Provider: Dr. Christopher Time of Visit: [id number] Referral setting: Assisted living Referral Reason: Cellulitis/Skin Tear LLE - Information Sources Records reviewed: Previous records reviewed History/Review of Systems obtained from: Patient Exam limitations: No limitations - History of Present Illness Update Brief HPI Update: This is a 78-year-old woman with end-stage COPD and pulmonary hypertension, with history of multiple comorbidities including recent exacerbation of her alcohol abuse. She did have an acute injury related to this with laceration of her left lower extremity, on 11/12/2019. Unfortunately did take her to the ED, where she received stitches, she was very slow to heal with her very fragile friable skin, bruising, and remove the stitches on . She did have a skin tear, that did not adhere, today it presents with dark red and granulating, small amount of bleeding. Clinical staff contact me, as did not feel wound was healing, and concern regarding symptoms of infection, patient did want visit for evaluation. Unfortunately she has been putting on Telfa and tearing it off at least once or twice a day over the last couple days. Distal to the skin tear, patient does present with a large area for 5 cm of erythema, redness, and tenderness no open blisters but remarkable for cellulitis. Patient is quite resistant to considering antibiotics, unfortunately we are coming into the weekend, she has a depressed immune system and is on long-term prednisone, we came to a compromise of low dose and is short of days as possible. In hopes for improvement and to accelerate healing. Patient reports her symptoms of increased respiratory symptoms, have not worsened, though have not improved much. She does report increased nasal congestion and nasal drip. She continues with exacerbated shortness of breath, and continued limited activity tolerance. She is due to see her hospital wellness coordinator on Saturday. Social History - Living Situation Living arrangement: Assisted living Living Situation: Alone Support System: Reports had a nice weekend with her family, did [place] stuff. She does report though she is getting somewhat overwhelmed with increased activity and chaos, has less energy and is more fatigue into her and previously. She did have a nice visit with her son from [place] today, he was here visiting her. She remains quite independent, does have some caregiving support that she hires for transportation and errands, she does have increased support from caregiving staff at facility as she does require w/c escort to meals. Medications/Allergies - Medications Home Medications: Ambulatory Orders Medication Instructions Recorded Confirmed Cholecalciferol (Vitamin D3) 2,000 units PO DAILY 02/04/17 12/10/19 [Vitamin D3] Mometasone/Formoterol [Dulera 100 2 puffs INH BID 02/04/17 12/10/19 Mcg/5 Mcg Inhaler] Trazodone HCl 100 mg PO QPM 02/04/17 12/10/19 diphenhydrAMINE [Benadryl] 50 mg PO QPM PRN 02/04/17 12/10/19 Escitalopram [Lexapro] 10 mg PO DAILY 02/19/17 12/10/19 Loperamide [Imodium] 2 - 4 mg PO PRN PRN MDD NTE 6 tabs 09/29/17 12/10/19 in 24 hours Acetaminophen [Tylenol] 1,000 mg PO TID 01/30/18 12/10/19 Ipratropium Hayden 2 sprays OMID Q8H PRN 01/30/18 12/10/19 Triamcinolone 0.1% Cream [Kenalog 1 applic TOP BID 01/30/18 12/10/19 0.1% Cream] Diphenoxylate/Atropine [Lomotil] 1 tab PO TID PRN #30 tablet 02/05/18 12/10/19 Ambrisentan [Letairis] 10 mg PO DAILY 09/29/18 12/10/19 Diclofenac Sodium/Misoprostol 1 tab PO DAILY 09/29/18 12/10/19 [Diclofenac-Misoprost 50-200 Tb] Lovastatin 40 mg PO QPM 09/29/18 12/10/19 Omeprazole 40 mg PO DAILY 09/29/18 12/10/19 Sildenafil Citrate 20 mg PO TID 09/29/18 12/10/19 Spironolactone 25 mg PO DAILY 09/29/18 12/10/19 Tiotropium [place]den [Spiriva 2 inh PO DAILY 09/29/18 12/10/19 Respimat] Bismuth Subsalicylate [Victor 15 ml PO DAILY PRN 10/20/18 12/10/19 Bismuth] Magnesium Hydroxide [Milk of 30 ml PO DAILY PRN 10/20/18 12/10/19 Magnesia] Potassium Chloride [K-Dur] 20 meq PO DAILY MDD with meals 12/10/18 12/10/19 Albuterol Sulfate [Proair 2 puffs PO Q4H PRN 04/03/19 12/10/19 Respiclick] Carbamide Peroxide Otic Drop 5 drops EACHEAR DAILY PRN MDD For 04/03/19 12/10/19 [Debrox Otic Drops] 5 days then flush Docusate Sodium 100 mg PO DAILY PRN 04/03/19 12/10/19 Lidocaine Patch 5% [Lidoderm Patch] 1 patch TOP DAILY PRN MDD 16 04/03/19 12/10/19 Torsemide 20 mg PO DAILY 04/03/19 12/10/19 Guaifenesin [Mucinex] 600 tab PO DAILY 07/01/19 12/10/19 Multivit-Min/FA/Lycopen/Lutein 1 tab PO DAILY 07/01/19 12/10/19 [Centrum Silver Men Tablet] Senna [Senokot] 2 tab PO QPM PRN 07/01/19 12/10/19 Sodium Fluoride [Prevident 5000] 1 ea PO DAILY 07/01/19 12/10/19 predniSONE [Prednisone] 13 mg PO DAILY MDD titrating down 07/08/19 12/10/19 1 mg week Capsaicin 1 applic TOP BID 08/14/19 12/10/19 Naloxone HCl [Narcan] 1 spray OMID Q5MIN PRN 08/14/19 12/10/19 Doxycycline Hyclate 100 mg PO BID MDD 5 days 12/10/19 12/10/19 - Allergies Allergies/Adverse Reactions: Allergies Allergy/AdvReac Type Severity Reaction Status Date / Time cephalexin [From Keflex] Allergy Severe Unknown Verified 12/11/19 21:14 Sulfa (Sulfonamide Allergy Mild Rash Verified 12/09/19 09:50 Antibiotics) Review of Systems - Constitutional Constitutional: reports: Fatigue, Weight loss. denies: Fever, Chills - Eyes Eyes: reports: Vision loss, Corrective lenses - Ears, Nose & Throat Ears, Nose & Throat: reports: Nasal congestion - Cardiovascular Cardiovascular: reports: Exertional dyspnea, Decr. exercise tolerance, Orthopnea - Respiratory Respiratory: reports: Cough (no worse; but remains consistent), Orthopnea, SOB at rest, SOB with exertion, Other (on 6 liters) - Gastrointestinal Gastrointestinal: reports: Abdominal distention, Diarrhea (improved off the Florastor; still most explosive after breakfast;), Reflux/heartburn, Bloating, Early satiety. denies: Nausea - Musculoskeletal Musculoskeletal: reports: Back pain (remains severe and limiting), Muscle weakness, Assistive devices (walker for short distances in apt.) - Integumentary Integumentary: reports: Dryness, Other (LLE wound) - Neurological Neurological: reports: General weakness, Memory problems (mild STM) - Psychiatric Psychiatric: reports: Depression, Anxiety - All Other Systems All Other Systems: reports: Other (limited ROS) Physical Exam - Vital Signs Temperature: 97.3 C Pulse Rate: 96 Respiratory Rate: 20 O2 Saturation: 98 (6 liters) - Physical Exam General Appearance: positive: Mild distress Eyes Bilateral: positive: Normal inspection ENT: positive: No signs of dehydration Neck: positive: No JVD, Trachea midline Cardiovascular: positive: Regular rate & rhythm Respiratory: positive: Diminished throughout. negative: No respiratory distress (respiratory effort with activity/conversation) Abdomen: positive: Soft, Distended Skin: positive: Dryness, Wound (see HPI) Neurologic/Psychiatric: positive: Oriented x3, Weakness, Depressed mood/affect, Flat affect Palliative Care - POLST Patient has POLST: Yes POLST Status: DNR, Selective Treatment Pain: Pain unchanged Impression and Recommendations - Palliative Care Impression: This is a 78-year-old woman who presents today with lower extremity cellulitis, poorly healing skin tear, as a result of the left lower extremity laceration from a ground-level fall. Patient skin remains quite friable, bruising, has poor circulation and has been on long-term steroids. Patient currently does not present with any systemic signs of sepsis. Palliative care making urgent visit for evaluation. Recommendations/Counseling Done: 1. Left lower extremity cellulitis. Patient with high risk factors, with sequela of lower extremity cellulitis. Patient quite hesitant to go on antibiotics, she often develops diarrhea and finds this quite distressful given her severe shortness of breath and difficulty getting to the bathroom. We did negotiate, given patient's allergies of both Keflex and sulfa, consult with pharmacy, will use doxycycline 100 mg twice daily for 5 days, if patient does not improve dramatically, can extend his 7 to 10 days. Patient is in agreement with plan. 2. Skin tear left lower extremity. Patient with friable skin, poor healing. Also re-traumatizing it with current dressing change, had been instructed use Mepilex and they switched back to Telfa. Did apply Xeroform, Telfa for protection and wrapped in soft gauze. Directions left for facility staff to change every 2 days, until healed. 3. Upper respiratory infection. Patient does attribute this to postnasal drip and sinus congestion, has not worsened nor improved dramatically. She is continues to be quite compromised, she is seeing her hospital wellness coordinator on Saturday. Patient does know if she progressed symptoms, to access medical help, she would prefer to go to [facility] if she were developing pneumonia, she reiterated this at our visit. Time Spent: 45 minutes with getting 50% of this done in providing wound care, counseling, coordination of care with staff. Patient will call for worsening symptoms, or if does not improve.
== END 2019-12-10 16:26 | disposition home or self-care (01) ==
LOC: PC 16:25
PROVIDERS: ATTEND Nurse Practitioner Adult Health
DX: Z51.5 Encounter for palliative care (principal); L03.116 Cellulitis of left lower limb; S81.812D Laceration without foreign body, left lower leg, subsequent encounter; J06.9 Acute upper respiratory infection, unspecified; Z79.899 Other long term (current) drug therapy; Z66 Do not resuscitate

== ENCOUNTER 2019-12-22 13:30 | Outpatient (CLI) | payer MEDICARE, OTHER ==
--- NOTE | 2019-12-22 17:43 | CONSULTATION NOTE ---
Palliative Care Follow Up - Referral Referring Provider: Dr. Heriberto Christopher Time of Visit: [id number] Referral setting: Assisted living Referral Reason: LLE trauma injury/Pulmonary HTN/Chronic Back Pain/GLF - Information Sources Records reviewed: Previous records reviewed History/Review of Systems obtained from: Patient Exam limitations: No limitations - History of Present Illness Update Brief HPI Update: This is a 79-year-old woman with end-stage COPD and pulmonary hypertension, with history of multiple comorbidities including recent exacerbation of her alcohol abuse. Patient originally had a acute injury with a fall, to her left lower extremity on 11/12/2019. She has been very slow to heal, and is since developed cellulitis, who was recently treated with doxycycline, and today presents with improvement. Area dull pink, no longer tender or red or tenderness. No open blisters. Patient's proximal wound has edges well healed of laceration, Steri-Strips have worked their way off but well healed, skin tear is filling in, still small 2-3 cm x 0.5 cm, shallow area moist residual. Pain has subsided, and has been replaced with some pruritus. Patient did have a ground-level fall this weekend, blood pressure is reported at the time as 78/56. Patient has been on neuro checks with vital signs every 2 hours, blood pressures have been within normal range for her, greater than 100. Today her blood pressure is 102/52. Patient denies any dizziness. She does report these are balance issues, though she was trying to put away some wine leftover from her visit with her brother who had been here this weekend. She denies this influenced her fall, and continues to have trouble with balance. Patient's baseline respiratory symptoms have not worsened, and do seem to have improved. She continues with difficulty with activity tolerance. Continuing the prednisone taper, currently 11 mg, she does not see any changes. Social History - Living Situation Living arrangement: Assisted living Living Situation: Alone Support System: Patient has lived in the facility for several years, feels well supported, has multiple complaints but for the most part is satisfied with being here. She does have 2 sons, and recently her brother who is retired from the [employer], and 14 years younger came and visited from [place] and enjoyed their time together. She does have a hired caregiver, who does provide support as far as some of her shopping, and appointments. Medications/Allergies - Medications Home Medications: Ambulatory Orders Medication Instructions Recorded Confirmed Cholecalciferol (Vitamin D3) 2,000 units PO DAILY 02/04/17 12/23/19 [Vitamin D3] Mometasone/Formoterol [Dulera 100 2 puffs INH BID 02/04/17 12/23/19 Mcg/5 Mcg Inhaler] Trazodone HCl 100 mg PO QPM 02/04/17 12/23/19 diphenhydrAMINE [Benadryl] 50 mg PO QPM PRN 02/04/17 12/23/19 Escitalopram [Lexapro] 10 mg PO DAILY 02/19/17 12/23/19 Loperamide [Imodium] 2 - 4 mg PO PRN PRN MDD NTE 6 tabs 09/29/17 12/23/19 in 24 hours Acetaminophen [Tylenol] 1,000 mg PO TID 01/30/18 12/23/19 Ipratropium Randolph 2 sprays OMID Q8H PRN 01/30/18 12/23/19 Triamcinolone 0.1% Cream [Kenalog 1 applic TOP BID 01/30/18 12/23/19 0.1% Cream] Ambrisentan [Letairis] 10 mg PO DAILY 09/29/18 12/23/19 Diclofenac Sodium/Misoprostol 1 tab PO DAILY 09/29/18 12/23/19 [Diclofenac-Misoprost 50-200 Tb] Lovastatin 40 mg PO QPM 09/29/18 12/23/19 Omeprazole 40 mg PO DAILY 09/29/18 12/23/19 Sildenafil Citrate 20 mg PO TID 09/29/18 12/23/19 Spironolactone 25 mg PO DAILY 09/29/18 12/23/19 Tiotropium Randolph [Spiriva 2 inh PO DAILY 09/29/18 12/23/19 Respimat] Bismuth Subsalicylate [[place] 15 ml PO DAILY PRN 10/20/18 12/23/19 Bismuth] Magnesium Hydroxide [Milk of 30 ml PO DAILY PRN 10/20/18 12/23/19 Magnesia] Potassium Chloride [K-Dur] 20 meq PO DAILY MDD with meals 12/10/18 12/23/19 Albuterol Sulfate [Proair 2 puffs PO Q4H PRN 04/03/19 12/23/19 Respiclick] Carbamide Peroxide Otic Drop 5 drops EACHEAR DAILY PRN MDD For 04/03/19 12/23/19 [Debrox Otic Drops] 5 days then flush Docusate Sodium 100 mg PO DAILY PRN 04/03/19 12/23/19 Lidocaine Patch 5% [Lidoderm Patch] 1 patch TOP DAILY PRN MDD 16 04/03/19 12/23/19 Torsemide 20 mg PO DAILY 04/03/19 12/23/19 Guaifenesin [Mucinex] 600 tab PO DAILY 07/01/19 12/23/19 Multivit-Min/FA/Lycopen/Lutein 1 tab PO DAILY 07/01/19 12/23/19 [Centrum Silver Men Tablet] Senna [Senokot] 2 tab PO QPM PRN 07/01/19 12/23/19 Sodium Fluoride [Prevident 5000] 1 ea PO DAILY 07/01/19 12/23/19 predniSONE [Prednisone] 11 mg PO DAILY MDD titrating down 07/08/19 12/23/19 1 mg week Capsaicin 1 applic TOP BID 08/14/19 12/23/19 - Allergies Allergies/Adverse Reactions: Allergies Allergy/AdvReac Type Severity Reaction Status Date / Time cephalexin [From Keflex] Allergy Severe Unknown Verified 12/11/19 21:14 Sulfa (Sulfonamide Allergy Mild Rash Verified 12/09/19 09:50 Antibiotics) Review of Systems - Constitutional Constitutional: reports: Fatigue, Weakness, Weight loss (115). denies: Fever, Chills - Eyes Eyes: reports: Vision loss, Corrective lenses - Ears, Nose & Throat Ears, Nose & Throat: reports: Nasal congestion, Dry mouth - Cardiovascular Cardiovascular: reports: Exertional dyspnea, Decr. exercise tolerance, Orthopnea - Respiratory Respiratory: reports: Cough, Sputum production, SOB at rest, SOB with exertion. denies: Wheezing - Gastrointestinal Gastrointestinal: reports: Diarrhea (continues with AM loose bowels/triggered by eating/foods; some abd pain and cramping but improved), Good appetite. denies: Nausea - Genitourinary Genitourinary: reports: Frequency - Musculoskeletal Musculoskeletal: reports: Back pain, Muscle aches, Stiffness, Muscle weakness, Assistive devices (uses walker in room), Transfer issues (uses wheelchair for distances) - Integumentary Integumentary: reports: Dryness - Neurological Neurological: reports: General weakness - Psychiatric Psychiatric: reports: Depression, Anxiety - Hematologic/Lymphatic Hematologic/Lymphatic: reports: Anemia, Recurrent infections (finished AB for cellulitis) - All Other Systems All Other Systems: reports: Reviewed and negative Physical Exam - Vital Signs Temperature: 97.2 C Pulse Rate: 79 Respiratory Rate: 20 O2 Saturation: 97 (6 liters at rest) Blood Pressure: 102/52 - Physical Exam General Appearance: positive: No acute distress, Alert Eyes Bilateral: positive: Normal inspection, Other (periorbital edema improved) ENT: positive: No signs of dehydration Neck: positive: Trachea midline, Other (cushingnoid appearance; lessened) Cardiovascular: positive: Regular rate & rhythm Respiratory: positive: Diminished throughout. negative: Wheezes, Rales, Rhonchi Abdomen: positive: Soft Skin: positive: Pallor, Pruritis (around wound healing), Wound (see HPI) Extremities: positive: No pedal edema Neurologic/Psychiatric: positive: Oriented x3, Mood/affect nml, Flat affect Palliative Care - POLST Patient has POLST: Yes POLST Status: DNR, Selective Treatment Pain: Pain unchanged, Location (Lower back; moderate to severe; topical CBD/Lidocaine patch most effective; Massage and manipulation with PT temporary relief for several hours;) Tiredness/Fatigue: Moderate (4-6) Drowsiness/Sedation: None Nausea: None Anorexia: Mild (1-3) (food choices) Dyspnea: Severe (7-10) Depression: Moderate (4-6) Anxiety: Moderate (4-6) Feelings of wellbeing/Perceived Quality of Life: Fair, Acceptable, Worsening Sleep: Variable sleep pattern Constipation: No Performance Status: Patient continues to experience decreased activity tolerance, she is ambulatory within her room. She is reporting more difficulty with balance, identifies this more related to neuropathy versus dizziness. She does need assistance with bathing, they do frequent room checks and offer her assistance as needed they do take her down to meals. She is continue with PT, which does help her back and keeps her ambulatory. - Palliative Care Discussion: Patient shared her visit with her brother, was part of "her bucket list", able to go through family pictures. She did find it quite emotionally draining, as it did bring up on multiple issues regarding grief and loss for her. Continues to struggle with her daily loss of more and more independence, as well as concerns for the future. Impression and Recommendations - Palliative Care Impression: This is a 79-year-old woman who presents today with resolving cellulitis, her skin tear on her left lower extremity due to trauma, is slowly healing. She has had yet another ground-level fall, is working with PT, does try to be careful, concern for mitigating factors by staff. Patient continues with compromised respiratory status, but has not developed any further worsening symptoms. Palliative care to continue provide support regarding symptom management. Recommendations/Counseling Done: 1. Left lower extremity wound. Dressing change done in examination, wound continues to slowly heal. Cellulitis has resolved, just has faded area of dull pink residual left. Counseling provided regarding signs or symptoms of worsening or recurrent infection to notify PCP or myself. Wound care orders left to continue Xeroform for 2 more dressing changes, then switch to large Band-Aid pad for protection for 4 weeks. Orders written for staff. 2. Ground-level fall. Multifactorial in origin, including hypotension. Patient's vital signs have been stable for last 2448 hrs., patient is back into her normal range. Patient dislikes frequent interruptions in follow-up from staff, agreed given current trends, will change vital signs to weekly. Instructed notify PCP or myself if pulse greater than 100, or blood pressure less than 100/50. We will continue to monitor for need for adjustments of diuretics per PCP concerns. She is scheduled to see him on 01/19. 3. URI. Patient did not have any worsening symptoms, continues with improvement of nasal congestion and cough. Patient at baseline has activity intolerance, and severe shortness of breath. Continues to be quite limited, patient continues to tolerate prednisone taper. Will stop at 10 mg daily for couple weeks, before titrate lower. Patient aware of signs and symptoms to notify staff/PCP. 4. Advanced care planning. Patient does have POLST in place, continues to receive adequate support from staff. Patient struggles with the need for increased support and loss of independence, with the need for more quiet time and isolation. Patient continues to work on "bucket list", is quite pragmatic and currently still finds quality of life acceptable. 5. Chronic back pain. This is multifactorial in origin, patient perceives gets most relief from intervention with massage manipulation with physical therapy, is continue to try and keep strength of 3 times a week. She finds topical CBD and lidocaine patch most effective. Patient would like to continue current regimen, does not want to restart narcotics at this point. She is using her twice daily wine, also for relief. 6. GI distress. This has improved with diet changes and discontinuing Florastor. Patient does have known gallstones, patient is aware to notify PCP if worsening, she can discuss at their next appointment if further follow-up needed. Time Spent: 50 minutes with greater than 50% of this done in counseling regarding goals of care, end-of-life wishes, anticipatory guidance, and coordination of care with clinical staff regarding fall risk and follow-up
== END 2019-12-22 13:31 | disposition home or self-care (01) ==
LOC: PC 13:30
PROVIDERS: ATTEND Nurse Practitioner Adult Health
DX: Z51.5 Encounter for palliative care (principal); S81.802D Unspecified open wound, left lower leg, subsequent encounter; W18.30XD Fall on same level, unspecified, subsequent encounter; I95.9 Hypotension, unspecified; J06.9 Acute upper respiratory infection, unspecified; G89.29 Other chronic pain; K30 Functional dyspepsia; Z79.899 Other long term (current) drug therapy; Z66 Do not resuscitate

== ENCOUNTER 2020-02-10 13:15 | Outpatient (CLI) | payer MEDICARE, OTHER ==
--- NOTE | 2020-02-10 17:51 | CONSULTATION NOTE ---
Palliative Care Follow Up - Referral Referring Provider: Dr. Heriberto Christopher Time of Visit: [id number] Referral setting: Assisted living Referral Reason: Sinusitis/chronic back pain - Information Sources Records reviewed: Previous records reviewed History/Review of Systems obtained from: Patient Exam limitations: No limitations - History of Present Illness Update Brief HPI Update: This is a 79-year-old woman with COPD and pulmonary hypertension, who has had greater than 1 week complaints of increased nasal congestion, pain and discomfort over her frontal sinuses, and significant nasal drainage of green. This has impacted her respiratory status, as the postnasal drip causes her with increased cough, though she has not run a temp, she is feeling quite poorly. She denies chills, unfortunately has to wear her oxygen at high flow around 6 L, and worsening pressure. She did get some relief last week we talked about comfort measures, of saline rinsing, restarting her nasal sprays, and increasing her fluids. She reports she has been compliant, but now is requesting further intervention. She does have some periorbital edema, tenderness to palpation over her frontal sinuses as well as forehead. She is afebrile. Oxygen sats at 97%, breath sounds diminished throughout, but no wheezes crackles are rhonchi. Patient also with history of known alcohol abuse, had been trialing alcohol for support, vs high dose opioids. She had been told if she wanted to drink, she had to titrate herself off opioids and indeed did. Patient does have severe lower back pain. Long-term chronic back pain with multiple failed surgeries and noted spinal stenosis. She had been previously followed by pain clinic. She reports her pain at a 8-10 over 10 today. Unfortunately her Medicare benefits for her PT, have run out. She had been managed with 3 times a week maintenance physical therapy and massage and manipulation with good support for her pain management. She had been given permission from Dr. Steele to have up to 4 glasses of wine for management of her pain. She is reporting she is using around 6. Staff reports she has been mostly appropriate, does tend to drink more in the evenings, but has had no falls. It has improved the relationship between the staff and patient not having this delegated. Patient's past medical history includes pulmonary arterial hypertension, centrilobular emphysema, end-stage COPD, chronic respiratory failure, pulmonary fibrosis, diastolic CHF, hypertension, chronic pain, HLD, history of iron deficiency anemia, GERD, depression, anxiety, osteoarthritis, former smoker of 100 pack years. Social History - Living Situation Living arrangement: Assisted living Living Situation: Alone Support System: Patient has 2 sons, one in [facility]. The other is in [place], she is quite worried about him as he is a cancer survivor. She does oversee her own affairs, has been at [facility] for several years, they do provide quite a bit of support for ADLs, medication administration, she does have privately hired someone for help with transportation and other errands. Medications/Allergies - Medications Home Medications: Ambulatory Orders Medication Instructions Recorded Confirmed Cholecalciferol (Vitamin D3) 2,000 units PO DAILY 02/04/17 02/11/20 [Vitamin D3] Mometasone/Formoterol [Dulera 100 2 puffs INH BID 02/04/17 02/11/20 Mcg-5 Mcg Inhaler] Trazodone HCl 100 mg PO QPM 02/04/17 02/11/20 diphenhydrAMINE [Benadryl] 50 mg PO QPM PRN 02/04/17 02/11/20 Escitalopram [Lexapro] 10 mg PO DAILY 02/19/17 02/11/20 Loperamide [Imodium] 2 - 4 mg PO PRN PRN MDD NTE 6 tabs 09/29/17 02/11/20 in 24 hours Acetaminophen [Tylenol] 1,000 mg PO TID 01/30/18 02/11/20 Ipratropium Amo 2 sprays OMID Q8H PRN 01/30/18 02/11/20 Triamcinolone 0.1% Cream [Kenalog 1 applic TOP BID 01/30/18 12/23/19 0.1% Cream] Ambrisentan [Letairis] 10 mg PO DAILY 09/29/18 02/11/20 Diclofenac Sodium/Misoprostol 1 tab PO DAILY 09/29/18 02/11/20 [Diclofenac-Misoprost 50-200 Tb] Lovastatin 40 mg PO QPM 09/29/18 02/11/20 Omeprazole 40 mg PO DAILY 09/29/18 02/11/20 Sildenafil Citrate 20 mg PO TID 09/29/18 02/11/20 Spironolactone 25 mg PO DAILY 09/29/18 02/11/20 Tiotropium Amo [Spiriva 2 inh PO DAILY 09/29/18 02/11/20 Respimat] Bismuth Subsalicylate [[place] 15 ml PO DAILY PRN 10/20/18 02/11/20 Bismuth] Magnesium Hydroxide [Milk of 30 ml PO DAILY PRN 10/20/18 02/11/20 Magnesia] Potassium Chloride [K-Dur] 20 meq PO DAILY MDD with meals 12/10/18 02/11/20 Albuterol Sulfate [Proair 2 puffs PO Q4H PRN 04/03/19 02/11/20 Respiclick] Carbamide Peroxide Otic Drop 5 drops EACHEAR DAILY PRN MDD For 04/03/19 02/11/20 [Debrox Otic Drops] 5 days then flush Docusate Sodium 100 mg PO DAILY PRN 04/03/19 02/11/20 Lidocaine Patch 5% [Lidoderm Patch] 1 patch TOP DAILY PRN MDD 16 04/03/19 02/11/20 Torsemide 20 mg PO DAILY 04/03/19 02/11/20 Guaifenesin [Mucinex] 600 tab PO DAILY 07/01/19 02/11/20 Multivit-Min/FA/Lycopen/Lutein 1 tab PO DAILY 07/01/19 02/11/20 [Centrum Silver Men Tablet] Senna [Senokot] 2 tab PO QPM PRN 07/01/19 02/11/20 Sodium Fluoride [Prevident 5000] 1 ea PO DAILY 07/01/19 02/11/20 predniSONE [Prednisone] 4 mg PO DAILY MDD titrating down 1 07/08/19 02/11/20 mg week Capsaicin 1 applic TOP BID 08/14/19 02/11/20 Doxycycline Hyclate 100 mg PO BID MDD 7 days 02/11/20 02/11/20 - Allergies Allergies/Adverse Reactions: Allergies Allergy/AdvReac Type Severity Reaction Status Date / Time cephalexin [From Keflex] Allergy Severe Unknown Verified 12/11/19 21:14 Sulfa (Sulfonamide Allergy Mild Rash Verified 12/09/19 09:50 Antibiotics) Review of Systems - Constitutional Constitutional: reports: Fatigue, Weight stable (117.8). denies: Fever, Chills - Eyes Eyes: reports: Vision loss (worsening), Corrective lenses - Ears, Nose & Throat Ears, Nose & Throat: reports: Hearing loss, Nasal congestion (worsening), Dry mouth - Cardiovascular Cardiovascular: reports: Exertional dyspnea, Decr. exercise tolerance - Respiratory Respiratory: reports: Cough, Sputum production, Wheezing, Orthopnea, SOB at rest, SOB with exertion - Gastrointestinal Gastrointestinal: reports: Diarrhea (controlled in AM with loperamide one tab), Good appetite. denies: Nausea, Reflux/heartburn - Genitourinary Genitourinary: reports: Frequency - Musculoskeletal Musculoskeletal: reports: Muscle pain (worsening right hip), Back pain, Muscle aches, Stiffness, Limited range of motion, Muscle weakness, Assistive devices (uses walker short distances), Transfer issues (wheelchair transfer for meals) - Integumentary Integumentary: reports: Dryness - Neurological Neurological: reports: General weakness - Psychiatric Psychiatric: reports: Depression, Anxiety - All Other Systems All Other Systems: reports: Reviewed and negative Physical Exam - Vital Signs Temperature: 97.6 C Pulse Rate: 95 Respiratory Rate: 20 O2 Saturation: 97 (6 liters at rest) Blood Pressure: 92/54 - Physical Exam General Appearance: positive: Alert, Mild distress Eyes Bilateral: positive: Other (periorbital edema) ENT: positive: No signs of dehydration, Other (tender to palpation over sinuses) Neck: positive: Trachea midline Cardiovascular: positive: Regular rate & rhythm Respiratory: positive: Diminished throughout Abdomen: positive: Soft, Nml bowel sounds Skin: positive: Pallor, Dryness Extremities: positive: No pedal edema Neurologic/Psychiatric: positive: Oriented x3, Mood/affect nml, Weakness, Flat affect Palliative Care - POLST Patient has POLST: Yes POLST Status: DNR, Selective Treatment Pain: Pain worsening, Location (right hip and back area) Tiredness/Fatigue: Moderate (4-6) Drowsiness/Sedation: Mild (1-3) Nausea: None Anorexia: Mild (1-3) Dyspnea: Severe (7-10) Depression: Moderate (4-6) Anxiety: Moderate (4-6) Feelings of wellbeing/Perceived Quality of Life: Fair, Acceptable, Worsening Sleep: Variable sleep pattern Constipation: No Performance Status: Patient is limited by her pain and dyspnea, does need assistance with ADLs. She does need assistance down to meals, they do do a wheelchair transfer for her. Would put her at a PPS of 60% - Palliative Care Discussion: Facility is on alert related to the Covid19, patient is aware of how vulnerable she is, but actually is quite pragmatic. She very much just wants to feel better from her sinusitis. She is very concerned mostly about her sons, her son in [place] is immunocompromised because of her his cancer, and his business is being affected. She is also concerned about her son in [facility]. She feels like she is managing her drinking responsibly, and is less stressed with not having to deal with staff. She does have a POLST in place, with DNA R and selective treatments, she would want to go to [facility] in [place] for any respiratory infections where her advanced manager is. Impression and Recommendations - Palliative Care Impression: This is a fragile 79-year-old woman with severe pulmonary hypertension, advanced COPD, now presenting with prolonged symptoms of sinusitis. She has an exacerbation of her back pain, attributes this actually to discontinuation of her physical therapy, and is feeling quite discouraged regarding this. Palliative care providing support regarding symptom management and psychosocial support. Recommendations/Counseling Done: 1. Sinusitis. Given patient's fragile status, and extended past 7 days of symptoms, though has no fever is at high risk. She did not want to try Augmentin, she has difficulty tolerating antibiotics, though not primary choice, will go ahead and try doxycycline 100 mg twice daily for 7 days. Agreement was if address symptoms and resolved so we will discontinue at this point in time, if is assisted or helped with symptoms, will extend to 14 days, and if not effective will discontinue and make a referral to Dr. Flores ENT. She has seen him before in [place]. We will have office follow-up next week for progress. Patient employing supportive care measures of saline rinses, and nasal spray. 2. Chronic back pain. Did follow-up with auto fleet maintenance manager of rehab, patient does not meet criteria for maintenance Medicare physical therapy. Patient does have the option to pay privately, given the severity of her symptoms and exacerbation, she is considering doing a private pay contract. She is using her alcohol for relief, patient perceives she is doing appropriately, staff reports sometimes she overdoes particular in the evening, but has not had any recurrent falls. 3. Fatigue. This is multifactorial in origin, patient is pacing activity, and instructed to still try and continue to not isolate in room, and walk as tolerated. 4. Advanced care planning. Patient is at high risk with the sequela of flu and are Covid19 virus. Overall has had increased respiratory effort overall with disease progression. No acute signs or symptoms, though is exacerbated with coughing with the postnasal drip of presumed sinusitis. She is aware of signs and symptoms to notify PCP or access emergent care. Time Spent: 45 minutes with greater than 50% of this done in coordination of care, counseling with patient regarding management of sinusitis and signs and symptoms to report or seek urgent care, as well as as anticipatory guidance regarding disease trajectory
== END 2020-02-10 13:16 | disposition home or self-care (01) ==
LOC: PC 13:15
PROVIDERS: ATTEND Nurse Practitioner Adult Health
DX: Z51.5 Encounter for palliative care (principal); J32.9 Chronic sinusitis, unspecified; J44.9 Chronic obstructive pulmonary disease, unspecified; I27.20 Pulmonary hypertension, unspecified; F10.10 Alcohol abuse, uncomplicated; G89.29 Other chronic pain; M54.5 Low back pain; R53.83 Other fatigue; Z79.899 Other long term (current) drug therapy; Z91.19 Patient's noncompliance with other medical treatment and regimen; Z66 Do not resuscitate

== ENCOUNTER 2020-03-01 15:32 | Outpatient (CLI) | payer MEDICARE, OTHER ==
--- NOTE | 2020-03-01 17:41 | CONSULTATION NOTE ---
Palliative Care Follow Up - Referral Referring Provider: Dr. Heriberto Christopher Time of Visit: [id number] Referral setting: Assisted living Referral Reason: Pulmonary HTN/Acute on Chronic Back Pain - Information Sources Records reviewed: Previous records reviewed History/Review of Systems obtained from: Patient Exam limitations: No limitations - History of Present Illness Update Brief HPI Update: This is a 79-year-old woman with COPD and severe pulmonary hypertension, who was recently treated for sinusitis, with pain and discomfort over her frontal sinuses and significant green colored nasal drainage with doxycycline with good response. She is still having some postnasal drainage, that is causing more productive cough than her baseline. She is concerned regarding developing pneumonia. She has not had any fever, they are doing daily checks because of coronavirus, but she is on baseline acetaminophen 1000 mg 3 times daily. She is having some weight loss, she attributes this both to feeling poorly, but also they are delivering meals to the broom, perceives her cold and not appetizing. She did call on Saturday, concerned she may be developing pneumonia, today and in follow-up on Saturday she did not feel she was symptomatic that way. On examination her lungs are clear, without wheezing, rales, rhonchi, she is diminished throughout with her underlying disease. She is hopeful if she were to develop more clinical symptoms, to avoid having to go anywhere, including for chest x-ray, she does have a pending appointment with Dr. stephanie Martínez, on 03/17 and wondering if she needs to follow-up with this. Patient's other significant symptom is her acute on chronic back pain. She has longstanding back pain, was on high doses of opioids, was titrated off as she wanted to continue drinking. She is still using her wine, she is reporting 4 glasses in 24 hours, patient feels like she is staying within those parameters though sometimes up to 6, staff has not found any further signs or symptoms of concern nor has she had any recent falls. She has been room bound, unfortunately her physical therapy hours have caught back, as well as her decreased prednisone she is having an acute exacerbation of her back pain. It is centered in her lower back pain and hip area, worsens with any kind of ambulation and is limiting her mobility. She is wondering if there is something else she can try, she does not recall having trialed gabapentin previously. Counseled though this is not a "quick fix", and is to be titrated up slowly and safely. His past medical history includes her severe pulmonary hypertension, centrilobular emphysema, end-stage COPD, chronic respiratory failure, pulmonary fibrosis, diastolic CHF, hypertension, chronic back pain, hyperlipidemia, history of iron deficiency anemia, thrombocytopenia, GERD, depression, anxiety, arthritis, Social History - Living Situation Living arrangement: Assisted living Living Situation: Alone Support System: Patient has 2 sons, one lives in [place]. She has been quite anxious about him in the middle of this coronavirus. Her other son is worried about as well as he is a cancer survivor. She has been at [facility] for several years, she is getting support with her ADLs, medication ministration, she does have privately blanket winder helper for transportation and other errands. She has been quite room bound through this last few weeks. Medications/Allergies - Medications Home Medications: Ambulatory Orders Medication Instructions Recorded Confirmed Cholecalciferol (Vitamin D3) 2,000 units PO DAILY 02/04/17 03/03/20 [Vitamin D3] Mometasone/Formoterol [Dulera 100 2 puffs INH BID 02/04/17 03/03/20 Mcg-5 Mcg Inhaler] Trazodone HCl 100 mg PO QPM 02/04/17 03/03/20 diphenhydrAMINE [Benadryl] 50 mg PO QPM PRN 02/04/17 03/03/20 Escitalopram [Lexapro] 10 mg PO DAILY 02/19/17 03/03/20 Loperamide [Imodium] 2 - 4 mg PO PRN PRN MDD NTE 6 tabs 09/29/17 03/03/20 in 24 hours Acetaminophen [Tylenol] 1,000 mg PO TID 01/30/18 03/03/20 Ipratropium [place] 2 sprays OMID Q8H PRN 01/30/18 03/03/20 Triamcinolone 0.1% Cream [Kenalog 1 applic TOP BID 01/30/18 03/03/20 0.1% Cream] Ambrisentan [Letairis] 10 mg PO DAILY 09/29/18 03/03/20 Diclofenac Sodium/Misoprostol 1 tab PO DAILY 09/29/18 03/03/20 [Diclofenac-Misoprost 50-200 Tb] Lovastatin 40 mg PO QPM 09/29/18 03/03/20 Omeprazole 40 mg PO DAILY 09/29/18 03/03/20 Sildenafil Citrate 20 mg PO TID 09/29/18 03/03/20 Spironolactone 25 mg PO DAILY 09/29/18 03/03/20 Tiotropium [place] [Spiriva 2 inh PO DAILY 09/29/18 03/03/20 Respimat] Bismuth Subsalicylate [Esto 15 ml PO DAILY PRN 10/20/18 03/03/20 Bismuth] Magnesium Hydroxide [Milk of 30 ml PO DAILY PRN 10/20/18 03/03/20 Magnesia] Potassium Chloride [K-Dur] 20 meq PO DAILY MDD with meals 12/10/18 03/03/20 Albuterol Sulfate [Proair 2 puffs PO Q4H PRN 04/03/19 03/03/20 Respiclick] Carbamide Peroxide Otic Drop 5 drops EACHEAR DAILY PRN MDD For 04/03/19 03/03/20 [Debrox Otic Drops] 5 days then flush Docusate Sodium 100 mg PO DAILY PRN 04/03/19 03/03/20 Lidocaine Patch 5% [Lidoderm Patch] 1 patch TOP DAILY PRN MDD 16 04/03/19 03/03/20 Torsemide 20 mg PO DAILY 04/03/19 03/03/20 Guaifenesin [Mucinex] 600 tab PO DAILY 07/01/19 03/03/20 Multivit-Min/FA/Lycopen/Lutein 1 tab PO DAILY 07/01/19 03/03/20 [Centrum Silver Men Tablet] Senna [Senokot] 2 tab PO QPM PRN 07/01/19 03/03/20 Sodium Fluoride [Prevident 5000] 1 ea PO DAILY 07/01/19 03/03/20 predniSONE [Prednisone] 1 mg PO DAILY MDD titrating down 1 07/08/19 03/03/20 mg week Capsaicin 1 applic TOP BID 08/14/19 03/03/20 Gabapentin 100 mg PO QPM MDD titrating up to 03/03/20 03/03/20 400 mg - Allergies Allergies/Adverse Reactions: Allergies Allergy/AdvReac Type Severity Reaction Status Date / Time cephalexin [From Keflex] Allergy Severe Unknown Verified 12/11/19 21:14 Sulfa (Sulfonamide Allergy Mild Rash Verified 12/09/19 09:50 Antibiotics) Review of Systems - Constitutional Constitutional: reports: Fatigue (worsening), Poor appetite, Weight loss. denies: Fever (checked daily with precautions) - Eyes Eyes: reports: Vision loss, Corrective lenses - Ears, Nose & Throat Ears, Nose & Throat: reports: Nasal congestion (improved), Postnasal drainage, Dry mouth - Cardiovascular Cardiovascular: reports: Exertional dyspnea, Decr. exercise tolerance, Orthopnea - Respiratory Respiratory: reports: Cough, Sputum production (dark yellow/green in am; improved through day), Orthopnea, SOB at rest, SOB with exertion - Gastrointestinal Gastrointestinal: reports: Poor appetite, Other (dislikes food/having food delivered). denies: Diarrhea, Nausea, Reflux/heartburn - Musculoskeletal Musculoskeletal: reports: Back pain (worsening ;impacting ambulation), Stiffness, Muscle weakness, Assistive devices (using walker for short distances in room) - Integumentary Integumentary: reports: Dryness - Neurological Neurological: reports: General weakness, Dizziness, Abnormal gait - Psychiatric Psychiatric: reports: Depression, Anxiety - Hematologic/Lymphatic Hematologic/Lymphatic: reports: Bruising, Recurrent infections (treated with doxcycline for sinusitis) - All Other Systems All Other Systems: reports: Reviewed and negative Physical Exam - Vital Signs Temperature: 98.4 C Pulse Rate: 96 Respiratory Rate: 20 O2 Saturation: 96 (patient monitors no changes 6 liters) - Physical Exam General Appearance: positive: Alert, Moderate distress Eyes Bilateral: positive: Other (periorbital edema mild) ENT: positive: No signs of dehydration. negative: Purulent nasal drainage Neck: positive: No JVD, Trachea midline Cardiovascular: positive: Irregularly irregular Respiratory: positive: Diminished throughout. negative: Wheezes, Rales, Rhonchi Abdomen: positive: Soft Skin: positive: Pallor, Dryness, Bruising, Wound (left lower extremity dull pink; skin healed but tender; bruising remains in area, no erythema) Extremities: positive: No pedal edema Neurologic/Psychiatric: positive: Oriented x3, Weakness, Depressed mood/affect, Flat affect Palliative Care - POLST Patient has POLST: Yes POLST Status: DNR, Selective Treatment (anxious about if to have pneumonia about going to [place];) Pain: Pain worsening, Location (patient currently using lidocain patches, has less PT as is paying out of pocket for; prednisone tapered almost done; APAP 1000 mg TID does not feel effective; does not want to restart opioids; continues to drink wine at least 4 glasses a day; staff do not report any s/s overuse lately) Tiredness/Fatigue: Severe (7-10) Drowsiness/Sedation: Mild (1-3) Nausea: None Anorexia: Moderate (4-6), Weight loss Dyspnea: Severe (7-10) Depression: Moderate (4-6) Anxiety: Moderate (4-6) Feelings of wellbeing/Perceived Quality of Life: Poor, Worsening Sleep: Variable sleep pattern Constipation: No Performance Status: Patient has had a fairly significant decline in her functional status this is both related to her dyspnea and her progressive chronic back pain. She reports she is significantly tired all the time with fatigue and can only tolerate with her dyspnea ambulating short distances. She is getting assistance with her A DLs, she does spend most of her time sitting at the table positioned forward for breathing support.She is less able to ambulate, as her pain is worsening particularly short sharp shooting down her left leg. - Palliative Care Discussion: Patient does present with significant anxiety regarding her pulmonary status, she does understand the seriousness of her illness, and concern if she were to get the coronavirus, she is actually more worried right now about having pneumonia. We did discuss I could follow-up with her analog ic design engineer for up safety plan we could initiate lately trying to manage it but she has high complexity and most likely to do poorly if she were to have recurrent pneumonia. She is not feeling well, her pain is up, as well as her anxiety. Counseling provided regarding normalizing her current fears and anxieties given her frail health status, coronavirus, and the steady stream of media. Assisted-living is providing appropriate safety interventions. They so far have been without positive resident. Patient does have a POLST with limited interventions, she is quite clear she does not want to be a DNI. She is wondering though if the need to go all the way to [place] is necessary, she is quite frightened and watching the different news. She is thinking she would particularly since she would be a DNI, may want to get her care closer to home, was discussing [facility]. Agreed I would talk with her analog ic design engineer. Impression and Recommendations - Palliative Care Impression: This is a fragile 79-year-old woman with severe pulmonary hypertension, advanced COPD, sinusitis, and recent exacerbation of her back pain. Palliative care providing support regarding pain and symptom management and psychosocial support as well as anticipatory guidance. Recommendations/Counseling Done: 1. Acute on chronic back pain. Reviewed options, currently she is being managed with acetaminophen 1000 mg 3 times daily, topical lidocaine, she has had less physical therapy which often helps as far as with massage and heat. She does not want to return to opioids, but is finding her pain now intolerable. Patient does not recall have her have been on gabapentin, she does have a neuropathic component to her pain with sharp shooting across her back and radiating down her left leg at times. Counseling provided regarding gabapentin is not "a quick fix", would need to start slow and titrate up and evaluate her response both for pain management and side effects. She would like to give this a try, initiated gabapentin 100 mg at bedtime x3 days, 100 mg x 2 x 3 days in the evening, 100 mg x 3 x 3 days and evening, then 100 mg a.m. and 300 mg in the evening will reevaluate at this point in time. 2. Sinusitis. Patient was treated with doxycycline 100 mg twice daily for 7 days, she does feel this is mostly resolved, though does have some postnasal drainage which is adding to her cough. 3. Advanced COPD. Patient is quite fearful of pneumonia, she is appearing quite frail and fatigued. She does feel like her respiratory status is deteriorating, but no acute signs or symptoms of infection, lungs are clear, O2 sats are within her normal, she would like to consider a plan if able to treat at facility. Discussed given her frailty, would be happy to reach out to pulmonology, but concerned if she were to have recurrent pneumonia about her overall prognosis. Counseling also provided regarding Covid19, Patient does understand the seriousness of her illness and most likely would lead to an end-of-life event if she were to get ill. She is quite clear on DNI, but is somewhat pragmatic in her approach as well. 4. Fatigue. This is multifactorial in origin, patient has been isolated in her room, secondary to restrictions. She does find herself sleeping more and with less activity tolerance. 5. Advanced care planning. Patient is at high risk for sequela of any flu or COVID19 virus, or for her to present with pneumonia. She presents with overall increased respiratory effort, less activity tolerance, and does acknowledge most likely she is seeing signs of disease progression. She does not have any acute signs or symptoms of infection at this point in time, with pulmonology for a plan. ADDENDUM 03/02 Dr. Marin on inpatient service this week, his partner responded who has seen patient in the past. His recommendation is to treat on clinical symptoms, does not feel chest x-ray would add to the treatment plan. He would recommend Augmentin if she were to present with symptoms consistent with pneumonia. He does not feel she needs to come to [place], and could be treated at [facility], recommended they can consult with pulmonology. In addressing her question about visit, does not feel this is necessary and they do do tele-medicine. This was shared with patient, and urged her to reschedule with telemedicine visit. Patient was satisfied with plan, and will notify me if patient has progressive symptoms. Plan to check in week of for further titration of gabapentin. Time Spent: 50 minutes with greater than 50% of this done in counseling regarding anticipatory guidance, establishing plan for progressive symptoms, counseling on pain and symptom management and anticipatory guidance regarding COVID19
== END 2020-03-01 15:33 | disposition home or self-care (01) ==
LOC: PC 15:32
PROVIDERS: ATTEND Nurse Practitioner Adult Health
DX: Z51.5 Encounter for palliative care (principal); M54.5 Low back pain; J44.9 Chronic obstructive pulmonary disease, unspecified; G89.29 Other chronic pain; J32.9 Chronic sinusitis, unspecified; R63.4 Abnormal weight loss; R53.83 Other fatigue; R53.1 Weakness; F41.9 Anxiety disorder, unspecified; I27.20 Pulmonary hypertension, unspecified; Z79.899 Other long term (current) drug therapy; Z66 Do not resuscitate

== ENCOUNTER 2020-03-15 15:30 | Outpatient (CLI) | payer MEDICARE, OTHER ==
--- NOTE | 2020-03-15 15:40 | PROVIDER PROGRESS NOTE ---
HPI/Interval History - HPI/Interval History This is a 79-year-old woman with COPD and severe pulmonary hypertension, who continues to struggle with severe acute on chronic back pain, alcoholism, and severe underlying dyspnea. She most recently had a fall last week, that resulted in severe hematoma and bruising on the right side of her face, as well as injury to her right knee. She reports she was reaching for her cane, and fell forward on her face and right knee, unable to brace herself. On examination, this is a week later, she has bright red erythema and swelling across the kneecap, with an abraded when 0.5 x 2 point centimeter area that is moist and draining slightly serous drainage. She also has a second injury on t he right side of her sanchez distal about 5 more centimeters about 3 x 3 cm area but is intact. I vannessa got a call earlier this week from nursing staff, with concern regarding cellulitis, and started her on doxycycline 100 mg twice daily, she has had cellulitis before with good response and tolerated this. She has allergies to cephalexin and sulfa and often has diarrhea with amoxicillin and Augmentin. She has tolerated so far, she reports the redness and tenderness has improved, and does feel like it is improving. Patient does appear somewhat inebriated, her speech is somewhat slurred, she is having concentrating, she is no longer being monitored for her alcohol intake. All of the residents are currently isolated in the room, she reports she is calling friends and reaching out, and is worried about her elderly friends as well. We had also started her on some gabapentin, she is titrated up to 100 mg in the a.m. and 300 at p.m., to try and address her worsening back pain. We discussed this not necessarily goal to diminish her acute pain, but to improve her functional status, as her pain was worsening she was unable to ambulate. She reports that somewhat better, but the severity remains fairly acute, and that she defaults to her alcohol to manage and "feel better". She does not appear in respiratory distress, but continues with a moist cough, she has dyspnea and respiratory effort with any kind of activity. This does not appear any worse than her baseline. Review of Systems - Constitutional Constitutional: reports: Fatigue. denies: Fever, Chills - Eyes Eyes: reports: Vision loss, Corrective lenses - Ears, Nose & Throat Ears, Nose & Throat: reports: Postnasal drainage - Cardiovascular Cardiovascular: reports: Exertional dyspnea, Decr. exercise tolerance, Orthopnea - Respiratory Respiratory: reports: Cough (moist), Sputum production, Wheezing, Orthopnea, SOB at rest, SOB with exertion - Gastrointestinal Gastrointestinal: reports: Poor appetite. denies: Constipation - Genitourinary Genitourinary: reports: Frequency - Musculoskeletal Musculoskeletal: reports: Back pain, Muscle aches, Stiffness, Limited range of motion, Muscle weakness, Assistive devices (uses walker and cane), Transfer issues (uses wheelchair for out of room/but currently isolated with COVID19) - Integumentary Integumentary: reports: Dryness, Other (bruising from fall/skin tear) - Neurological Neurological: reports: Memory problems, Slurred speech (suspect drinking today;) - Psychiatric Psychiatric: reports: Depression, Anxiety - Hematologic/Lymphatic Hematologic/Lymphatic: reports: Other (cellulitis right knee) Medications/Allergies - Medications Home Medications: Ambulatory Orders Medication Instructions Recorded Confirmed Cholecalciferol (Vitamin D3) 2,000 units PO DAILY 02/04/17 03/15/20 [Vitamin D3] Mometasone/Formoterol [Dulera 100 2 puffs INH BID 02/04/17 03/15/20 Mcg-5 Mcg Inhaler] Trazodone HCl 100 mg PO QPM 02/04/17 03/15/20 diphenhydrAMINE [Benadryl] 50 mg PO QPM PRN 02/04/17 03/15/20 Escitalopram [Lexapro] 10 mg PO DAILY 02/19/17 03/15/20 Loperamide [Imodium] 2 - 4 mg PO PRN PRN MDD NTE 6 tabs 09/29/17 03/15/20 in 24 hours Acetaminophen [Tylenol] 1,000 mg PO TID 01/30/18 03/15/20 Ipratropium [place] 2 sprays OMID Q8H PRN 01/30/18 03/15/20 Triamcinolone 0.1% Cream [Kenalog 1 applic TOP BID 01/30/18 03/15/20 0.1% Cream] Ambrisentan [Letairis] 10 mg PO DAILY 09/29/18 03/15/20 Diclofenac Sodium/Misoprostol 1 tab PO DAILY 09/29/18 03/15/20 [Diclofenac-Misoprost 50-200 Tb] Lovastatin 40 mg PO QPM 09/29/18 03/15/20 Omeprazole 40 mg PO DAILY 09/29/18 03/15/20 Sildenafil Citrate 20 mg PO TID 09/29/18 03/15/20 Spironolactone 25 mg PO DAILY 09/29/18 03/15/20 Tiotropium [place] [Spiriva 2 inh PO DAILY 09/29/18 03/15/20 Respimat] Bismuth Subsalicylate [[place] 15 ml PO DAILY PRN 10/20/18 03/15/20 Bismuth] Magnesium Hydroxide [Milk of 30 ml PO DAILY PRN 10/20/18 03/15/20 Magnesia] Potassium Chloride [K-Dur] 20 meq PO DAILY MDD with meals 12/10/18 03/15/20 Albuterol Sulfate [Proair 2 puffs PO Q4H PRN 04/03/19 03/15/20 Respiclick] Carbamide Peroxide Otic Drop 5 drops EACHEAR DAILY PRN MDD For 04/03/19 03/15/20 [Debrox Otic Drops] 5 days then flush Docusate Sodium 100 mg PO DAILY PRN 04/03/19 03/15/20 Lidocaine Patch 5% [Lidoderm Patch] 1 patch TOP DAILY PRN MDD 16 04/03/19 03/15/20 Torsemide 20 mg PO DAILY 04/03/19 03/15/20 Guaifenesin [Mucinex] 600 tab PO DAILY 07/01/19 03/15/20 Multivit-Min/FA/Lycopen/Lutein 1 tab PO DAILY 07/01/19 03/15/20 [Centrum Silver Men Tablet] Senna [Senokot] 2 tab PO QPM PRN 07/01/19 03/15/20 Sodium Fluoride [Prevident 5000] 1 ea PO DAILY 07/01/19 03/15/20 Capsaicin 1 applic TOP BID 08/14/19 03/15/20 Gabapentin 300 mg PO QPM 03/03/20 03/15/20 Doxycycline Hyclate 100 mg PO BID MDD 7 days 03/15/20 03/15/20 Gabapentin 100 mg PO .AM/PM 03/15/20 03/15/20 - Allergies Allergies/Adverse Reactions: Allergies Allergy/AdvReac Type Severity Reaction Status Date / Time cephalexin [From Keflex] Allergy Severe Unknown Verified 12/11/19 21:14 Sulfa (Sulfonamide Allergy Mild Rash Verified 12/09/19 09:50 Antibiotics) Physical Exam - Physical Exam General: Patient presents in appearance somewhat disheveled, she is usually quite well put together, has had close contact with outside world, not able to make it to her appointments. She continues with some [place]'s-like appearance around her neck. ENT: She does appear to have moist membranes, does not appear dehydrated Eyes: Patient with significant bruising above her left periorbital area and slight swelling. She does have bilateral periorbital which is her baseline as well. Pulmonary: Patient does have respiratory effort with any kind of movement, moist cough, does not appear in distress but at her baseline. CV: Patient with no pedal edema. GI: Patient has normal distended abdomen, rounded. Skin: Please see HPI. New Neuro: Patient able to move all extremities, is awake, oriented x3, but is slurring her words. Psych: Does appear somewhat anxious, with depressive symptoms expressed, Hem: Bruising noted on face and right lower extremity. Palliative Care - POLST Patient has POLST: Yes POLST Status: DNR, Selective Treatment Pain: Comment (Patient now complaining of acute pain in her right face, from bruising. She also complains of acute pain in her right knee. She reports her back pain continues fairly severe, though she is sleeping through the night without increased pain, and actually thinking about holding her trazodone. She is unable to tell me if it has helped functionally, though she does report she is walking little bit better, she is still receiving PT with massage which gives her the most relief. We discussed at currently she is at gabapentin 100 mg a.m. and 300 at p.m., will continue to titrate but very slowly given patient's underlying medication abuse issues) Tiredness/Fatigue: Moderate (4-6) Drowsiness/Sedation: Moderate (4-6) (reports sleeps most of day; this is out of boredom and denies change with start of gabapentin) Nausea: None Anorexia: Moderate (4-6) (dislikes food choices/meals currently) Dyspnea: Severe (7-10) (no change from baseline) Depression: Moderate (4-6) Anxiety: Moderate (4-6) Feelings of wellbeing/Perceived Quality of Life: Fair, Worsening Sleep: Sleep improved Constipation: No Performance Status: Patient continues with functional decline, is less ambulatory given her isolation in her room. She is limited both by pain and by dyspnea. Does need more assistance with bathing and dressing, still tries to manage her own affairs, would put her at a PPS of 50% - Palliative Care Discussion: Patient has very little insight into her behaviors, nor the risk of puts her at. She is continue to make her choices to continue drinking, has had attempts but limitations on it, she has agreed to take responsibility for her fall out, which certainly puts her at high risk for falls. She is feeling more overwhelmed with the CO VID 19, less social contact, and feeling very "beat up" from her fall. She does not perceive her quality of life is improving but continued to deteriorate. Patient does have POLST in place, would still accept hospitalization, but very much wants to avoid ED visits or provider visits if possible Impression and Recommendations - Palliative Care Impression: This is a fragile 79-year-old woman with severe pulmonary hypertension, advanced COPD, recent exacerbation of her back pain, ongoing alcoholism, and right knee cellulitis. Patient remains at high risk for falls and sequela related to her drinking. Palliative care continue provide support regarding pain and symptom management and psychosocial support as well as anticipatory guidance. Recommendations/Counseling Done: 1. Cellulitis right knee. This is a result of a trauma injury, is on doxycycline 100 mg twice daily, tolerating well with some improvement. Staff continue to monitor, will evaluate early next week, may need extended antibiotics given her fragility of her skin and underlying immunocompromise status. Patient currently being managed with just a topical Band-Aid, very betty le drainage or open area, mostly skin damage underneath. 2. Acute on chronic back pain. Patient's currently being managed with acetaminophen 1000 mill D, topical lidocaine patches, physical therapy with massage and heat, did initiate gabapentin with the goal to improve functional status. She is currently at 100 mg a.m. and 300 in the evening, with only small improvement. She would like to continue though, will just add 100 mg at noon and titrate quite slowly given patient's ongoing issues. She does not feel she has had increased sedation, she reports she sleeps a lot during the day anyway, but is sleeping better at night with improved pain and the evenings. 3. Advanced COPD. Patient remains quite fearful of pneumonia, she is quite frail and fatigued. She does perceive overall her respiratory status is diminishing, at this point in time denies any acute signs or symptoms. Patient does understand the seriousness of her illness most likely will lead to an end-of-life event if she were to get acutely ill, she is quite clear on DNI, and is quite pragmatic in her approach. 4. Ground-level fall. Patient now does have [employer], she had to crawl to her pull line. She is able to access more urgent help if needed. 5. Depression. Patient expressing more feelings of helplessness and hopelessness, she is reaching out to friends trying to stay connected. She is still talking to her children on a regular basis, remains quite anxious regarding the CO VID19. Psychosocial support given as well as attempting to elicit feelings of concern and distress. Telehealth Visit - TeleMedicine Visit Referring Provider: Dr. Heriberto Christopher Visit Type:: TeleHealth Video Call Patient agrees and consents to this telehealth visit type: Yes Time spent:: 35 minutes Video type:: FaceTime Participants:: Caregiver Location of provider:: Office Location of patient:: Home Provider Statement: I spent 100% on the TeleHealth Video Call with the patient with greater than 50% spent counseling the patient and coordination of care.
== END 2020-03-15 15:31 | disposition home or self-care (01) ==
LOC: PC 15:30
PROVIDERS: ATTEND Nurse Practitioner Adult Health
DX: Z51.5 Encounter for palliative care (principal); J44.9 Chronic obstructive pulmonary disease, unspecified; I27.20 Pulmonary hypertension, unspecified; L03.115 Cellulitis of right lower limb; G89.29 Other chronic pain; M54.9 Dorsalgia, unspecified; M62.81 Muscle weakness (generalized); F10.20 Alcohol dependence, uncomplicated; F32.9 Major depressive disorder, single episode, unspecified; Z79.899 Other long term (current) drug therapy; Z91.81 History of falling; Z66 Do not resuscitate

== ENCOUNTER 2020-03-24 10:30 | Outpatient (CLI) | payer MEDICARE, OTHER ==
--- NOTE | 2020-03-24 13:28 | PROVIDER PROGRESS NOTE ---
HPI/Interval History - HPI/Interval History This is a 79-year-old woman with severe COPD and severe pulmonary hypertension, who continues to struggle with severe acute on chronic back pain, active alcoholism, and has a history of recurrent falls. She had a fall week of 4 6, that resulted in a severe hematoma and bruising on her right side of her face, as well as injury to her right knee. Developed erythema, and was treated with doxycycline with resolution, on exam today it is still slightly reddened, bruising is resolving, and small area of less than 1 cm eschar is in appearance. She reports tenderness is less, and swelling continues to resolve. She still has pretty severe bruising on the right side of her face, and does have several hematomas on her upper arms. When I spoke to her on her last telemedicine visit, on 03/15 unfortunately she was fairly inebriated." She has no memory or recall of this. We had talked ab out titrating up her gabapentin, but then she went on to have 2 falls that day, so held back. Today she presents is awake and alert, able to engage, and has had no further falls since the . Patient describes worsening back pain, she reports its shifted in location, had been fairly significant mid lumbar thoracic area, now is traveled down into her SI joint. Is limiting her functional status, her ability to walk, only relief she gets is when she sits in her chair with lumbar support or laying in her bed. She is currently on gabapentin 100 mg in the a.m. and 300 at bedtime, as well as topical lidocaine patches and does use heat. She also is getting massage from PT. She would like to get some imaging of her back, to see if things have changed, though we did discuss most likely is not going to change the outcome of what is available to her. She has had injections in the past, from orthopedist and has received response with that. We could make a referral back up to that group in [place] if desired. Patient does not perceive gabapentin has been much help, though we still are on fairly low dosing, given the limitations of cross titration with gabapentin, will switch her over to pregabalin. Discussed this with patient, she is in agreement, but will do a time trial if no improvement will taper her off. Review of Systems - Constitutional Constitutional: reports: Fatigue (continues), Weakness, Weight loss (115) - Eyes Eyes: reports: Blurred vision, Vision loss, Corrective lenses - Ears, Nose & Throat Ears, Nose & Throat: reports: Hearing loss, Nasal congestion, Dry mouth - Cardiovascular Cardiovascular: reports: Exertional dyspnea, Decr. exercise tolerance, Orthopnea - Respiratory Respiratory: reports: Cough (loose/moist), Sputum production (no change), Wheezing (occasional), Orthopnea, SOB at rest, SOB with exertion. denies: Hemoptysis - Gastrointestinal Gastrointestinal: reports: Poor appetite, Early satiety, Other (dislikes current mixer dry food products; cold in room). denies: Constipation, Diarrhea - Genitourinary Genitourinary: reports: Urgency (not new), Incontinence (mild) - Musculoskeletal Musculoskeletal: reports: Back pain, Muscle aches, Stiffness, Limited range of motion, Muscle weakness, Assistive devices (uses cane/walker in room) - Integumentary Integumentary: reports: Dryness, Other (right knee injury) - Neurological Neurological: reports: General weakness, Memory problems. denies: Slurred speech - Psychiatric Psychiatric: denies: Depression, Anxiety - Hematologic/Lymphatic Hematologic/Lymphatic: reports: Recurrent infections (recently treated for cellulitis) - All Other Systems All Other Systems: reports: Reviewed and negative Medications/Allergies - Medications Home Medications: Ambulatory Orders Medication Instructions Recorded Confirmed Cholecalciferol (Vitamin D3) 2,000 units PO DAILY 02/04/17 03/24/20 [Vitamin D3] Mometasone/Formoterol [Dulera 100 2 puffs INH BID 02/04/17 03/24/20 Mcg-5 Mcg Inhaler] diphenhydrAMINE [Benadryl] 50 mg PO QPM PRN 02/04/17 03/24/20 Escitalopram [Lexapro] 10 mg PO DAILY 02/19/17 03/24/20 Loperamide [Imodium] 2 - 4 mg PO PRN PRN MDD NTE 6 tabs 09/29/17 03/24/20 in 24 hours Acetaminophen [Tylenol] 1,000 mg PO TID 01/30/18 03/24/20 Ipratropium [place] 2 sprays OMID Q8H PRN 01/30/18 03/24/20 Triamcinolone 0.1% Cream [Kenalog 1 applic TOP BID 01/30/18 03/24/20 0.1% Cream] Ambrisentan [Letairis] 10 mg PO DAILY 09/29/18 03/24/20 Diclofenac Sodium/Misoprostol 1 tab PO DAILY 09/29/18 03/24/20 [Diclofenac-Misoprost 50-200 Tb] Lovastatin 40 mg PO QPM 09/29/18 03/24/20 Omeprazole 40 mg PO DAILY 09/29/18 03/24/20 Sildenafil Citrate 20 mg PO TID 09/29/18 03/24/20 Spironolactone 25 mg PO DAILY 09/29/18 03/24/20 Tiotropium [place] [Spiriva 2 inh PO DAILY 09/29/18 03/24/20 Respimat] Bismuth Subsalicylate [[place] 15 ml PO DAILY PRN 10/20/18 03/24/20 Bismuth] Magnesium Hydroxide [Milk of 30 ml PO DAILY PRN 10/20/18 03/24/20 Magnesia] Potassium Chloride [K-Dur] 20 meq PO DAILY MDD with meals 12/10/18 03/24/20 Albuterol Sulfate [Proair 2 puffs PO Q4H PRN 04/03/19 03/24/20 Respiclick] Carbamide Peroxide Otic Drop 5 drops EACHEAR DAILY PRN MDD For 04/03/19 03/24/20 [Debrox Otic Drops] 5 days then flush Docusate Sodium 100 mg PO DAILY PRN 04/03/19 03/24/20 Lidocaine Patch 5% [Lidoderm Patch] 1 patch TOP DAILY PRN MDD 16 04/03/19 03/24/20 Torsemide 20 mg PO DAILY 04/03/19 03/24/20 Guaifenesin [Mucinex] 600 tab PO DAILY 07/01/19 03/24/20 Multivit-Min/FA/Lycopen/Lutein 1 tab PO DAILY 07/01/19 03/24/20 [Centrum Silver Men Tablet] Senna [Senokot] 2 tab PO QPM PRN 07/01/19 03/24/20 Sodium Fluoride [Prevident 5000] 1 ea PO DAILY 07/01/19 03/24/20 Capsaicin 1 applic TOP BID 08/14/19 03/24/20 Pregabalin 50 mg PO BID 03/24/20 03/24/20 - Allergies Allergies/Adverse Reactions: Allergies Allergy/AdvReac Type Severity Reaction Status Date / Time cephalexin [From Keflex] Allergy Severe Unknown Verified 12/11/19 21:14 Sulfa (Sulfonamide Allergy Mild Rash Verified 12/09/19 09:50 Antibiotics) Physical Exam - Physical Exam General: Patient appears awake alert able to engage, no slurred speech today. Eyes: Does have somewhat of a droop to her left eye lid, does have periorbital edema, appears at baseline Neck; trachea midline Respiratory: Patient has significant effort with any kind of speech, respiratory rate goes up. Does have a moist cough, but does not expectorate Skin: Patient has upper extremity hematomas, right knee appears to be improving with area of erythema but improved with small dry eschar. Musculoskeletal: Patient able to move upper extremities, was not able to examine gait. Psychiatric: Patient is oriented x3, mood appears good, speech clear, able to follow conversation. ENT: Patient does have some little full throat, [facility] appears to be res olving. No signs taken by staff, left arm 110/68, pulse 74, temp taken on a daily basis for CO VID, 98.1, pulse usually running in the 90s. Weight today 117.6, has been as low as 115 this month. Palliative Care - POLST Patient has POLST: Yes POLST Status: DNR, Selective Treatment Pain: Pain worsening, Comment (see HPI) Drowsiness/Sedation: Moderate (4-6), Comment (staff reports more somnulent at night; both patient and staff agree to dc trazadone) Nausea: None Anorexia: Moderate (4-6) (attributes it to food choices/texture) Dyspnea: Severe (7-10) Depression: Mild (1-3) Anxiety: Mild (1-3) Feelings of wellbeing/Perceived Quality of Life: Poor, Worsening Sleep: Variable sleep pattern Constipation: No Performance Status: Patient reports functional decline, less able to get around apartment this is somewhat impacted not only by her dyspnea but her pain is well. She does need assistance with dressing, bathing, but otherwise manages independently. - Palliative Care Discussion: Patient continues to struggle with quality of life, worsening back pain, as well as isolation. She is in contact daily with her family, friends, she tries to reach out on a regular basis. She has many projects that she is working on. She denies depression or anxiety, but is quite concerned about the worsening nature of her pain. She continues with little insight into her alcohol intake, nor its impact on her behavior or safety. Impression and Recommendations - Palliative Care Impression: This is a fragile 79-year-old woman with severe pulmonary hypertension, advanced COPD, ongoing alcoholism, and exacerbation of her acute on chronic back pain. She continues to be at high risk for falls, as a result of sequela from her drinking. Palliative care to continue provide support for pain and symptom management as well as anticipatory guidance. Recommendations/Counseling Done: 1. Acute on chronic back pain. Patient reports that shift from her baseline pain which is chronic and severe nature. Feels it is radiated down into her lower back, was told by PT SI joint. She would like x-rays, though we did discuss weighing benefits and burdens if he would do anything differently. She does see her PCP in April, can follow-up at that point in time for imaging. She has benefited from injections in the past, this would be an option. Discussed current gabapentin regimen, and concerned given the titration of gabapentin does take over several weeks, will trial and switch to pregabalin, this will give us a better sense if this will be an effective medication, and can time trial at over 2 to 3 weeks versus 4 to 6 weeks. Pregabalin ordered with the discontinuation of gabapentin 50 mg twice daily for 4 days, increase to 50 mg 3 times daily for 3 days then increase to 50 mg a.m. 50 mg afternoon and 100 mg at bedtime. We will discontinue the trazodone to decrease fall risk, patient does report sleeping at night. 2. Pulmonary hypertension. She did have a session with Dr. Tadeo, was told she could increase her oxygen to 8 L. She is worried actually about symptoms of retention, she has not heard back. Will get a copy of her his note to see long- term plan. She remains quite short of breath, continues to have slow but steady decline with her breathing status, with increasing dyspnea, more difficulty with activity tolerance, and more feelings of breathlessness. 3. Weight loss. This is related to her dislike of the food, she is hoping as restrictions lift, to be able to order food in or return to previous dining experience where she has more control over food choices. 4. Right trauma wound of the knee. This appears to be resolving, no other signs of acute infection, tenderness is improving, and wound appears well- healed. Telehealth Visit - TeleMedicine Visit Referring Provider: Dr. Heriberto Christopher Visit Type:: TeleHealth Video Call Patient agrees and consents to this telehealth visit type: Yes Time spent:: 30 minutes Video type:: facetime Participants:: Caregiver (assisted with knee examiniation only) Location of provider:: Office Location of patient:: Assisted Living Provider Statement: I spent 100% on the TeleHealth Video Call with the patient with greater than 50% spent counseling the patient and coordination of care.
== END 2020-03-24 10:31 | disposition home or self-care (01) ==
LOC: PC 10:30
PROVIDERS: ATTEND Nurse Practitioner Adult Health
DX: Z51.5 Encounter for palliative care (principal); G89.29 Other chronic pain; F10.20 Alcohol dependence, uncomplicated; I27.20 Pulmonary hypertension, unspecified; R63.0 Anorexia; R63.4 Abnormal weight loss; M54.5 Low back pain; J44.9 Chronic obstructive pulmonary disease, unspecified; S89.91XD Unspecified injury of right lower leg, subsequent encounter; Z79.899 Other long term (current) drug therapy; Z91.81 History of falling; Z66 Do not resuscitate

== ENCOUNTER 2020-04-01 21:38 | Outpatient (CLI) | payer MEDICARE, OTHER | END 2020-04-01 21:39 | disposition EMS.NT | LOC: EMS 21:38 | PROVIDERS: ATTEND Surgery | DX: R04.0 Epistaxis (principal); W07.XXXA Fall from chair, initial encounter; Y92.099 Unspecified place in other non-institutional residence as the place of occurrence of the external cause ==

== ENCOUNTER 2020-04-04 23:09 | Outpatient (CLI) | payer MEDICARE, OTHER | END 2020-04-04 23:10 | disposition critical access hospital (66) | LOC: EMS 23:09 | PROVIDERS: ATTEND Surgery | DX: S09.92XA Unspecified injury of nose, initial encounter (principal); W01.198A Fall on same level from slipping, tripping and stumbling with subsequent striking against other object, initial encounter; Y92.129 Unspecified place in nursing home as the place of occurrence of the external cause | CPT/HCPCS: A0425; A0429 ==

== ENCOUNTER 2020-04-04 23:24 | Emergency (ER) | payer MEDICARE, OTHER ==
--- NOTE | 2020-04-04 23:32 | ED Physician Documentation ---
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 She says the cause of her fall was weakness in her legs, which she says is a chronic problem due to back problems. Denies LOC, only c/o is pain and swelling of nose Review of Systems Eyes: denies: Loss of vision, Decreased vision Ears: reports: Reviewed and negative Nose: reports: Other (nasal swelling, pain). denies: Rhinorrhea / runny nose, Congestion, Epistaxis, Sinus pressure / pain, Foreign Body Cardiac: reports: Reviewed and negative Respiratory: reports: Dyspnea (chronic/baseline) GI: reports: Reviewed and negative : denies: Dysuria, Frequency, Incontinent Skin: denies: Laceration (s) Musculoskeletal: reports: Reviewed and negative Neurologic: reports: Head injury. 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: Dilation and currettage, Hysterectomy Cardiovascular: Cardiac catheterization HEENT: Cataracts, Tonsil/Adenoidectomy, Other - Present Medications Home Medications: Ambulatory Orders Medication Instructions Recorded Confirmed Cholecalciferol (Vitamin D3) 2,000 units PO DAILY 02/04/17 04/04/20 [Vitamin D3] Mometasone/Formoterol [Dulera 100 2 puffs INH BID 02/04/17 04/04/20 Mcg-5 Mcg Inhaler] Escitalopram [Lexapro] 10 mg PO DAILY 02/19/17 04/04/20 Loperamide [Imodium] 2 - 4 mg PO PRN PRN MDD NTE 6 tabs 09/29/17 04/04/20 in 24 hours Acetaminophen [Tylenol] 1,000 mg PO TID 01/30/18 04/04/20 Ipratropium [place] 2 sprays OMID Q8H PRN 01/30/18 04/04/20 Triamcinolone 0.1% Cream [Kenalog 1 applic TOP BID 01/30/18 04/04/20 0.1% Cream] Diclofenac Sodium/Misoprostol 1 tab PO DAILY 09/29/18 04/04/20 [Diclofenac-Misoprost 50-200 Tb] Lovastatin 40 mg PO QPM 09/29/18 04/04/20 Omeprazole 40 mg PO DAILY 09/29/18 04/04/20 Sildenafil Citrate 20 mg PO TID 09/29/18 04/04/20 Spironolactone 25 mg PO DAILY 09/29/18 04/04/20 Tiotropium [place] [Spiriva 2 inh PO DAILY 09/29/18 04/04/20 Respimat] Potassium Chloride [K-Dur] 10 meq PO DAILY MDD with meals 12/10/18 04/04/20 Albuterol Sulfate [Proair 2 puffs PO Q4H PRN 04/03/19 04/04/20 Respiclick] Docusate Sodium 100 mg PO DAILY PRN 04/03/19 04/04/20 Lidocaine Patch 5% [Lidoderm Patch] 1 patch TOP DAILY PRN MDD 16 04/03/19 04/04/20 Torsemide 20 mg PO DAILY 04/03/19 04/04/20 Guaifenesin [Mucinex] 600 tab PO DAILY 07/01/19 04/04/20 Multivit-Min/FA/Lycopen/Lutein 1 tab PO DAILY 07/01/19 04/04/20 [Centrum Silver Men Tablet] Senna [Senokot] 2 tab PO QPM PRN 07/01/19 04/04/20 Capsaicin 1 applic TOP BID PRN 08/14/19 04/04/20 Ambrisentan [Letairis] 10 mg DAILY 04/04/20 04/04/20 Fluticasone [Flonase] 1 spray DAILY 04/04/20 04/04/20 Loratadine [Claritin] 10 mg DAILY 04/04/20 04/04/20 Prednisone 10 mg DAILY 04/04/20 04/04/20 traZODone [Desyrel] 100 mg DAILY PM PRN 04/04/20 04/04/20 - Allergies Allergies/Adverse Reactions: Allergies Allergy/AdvReac Type Severity Reaction Status Date / Time cephalexin [From Keflex] Allergy Severe Unknown Verified 04/04/20 23:39 Sulfa (Sulfonamide Allergy Mild Rash Verified 04/04/20 23:39 Antibiotics) - Social History Does the pt smoke?: No Smoking Status: Never smoker Does the pt drink ETOH?: No Does the pt have substance abuse?: No - Immunizations Immunizations are current?: Yes - POLST Patient has POLST: Yes POLST Status: Full Code PD ED PE NORMAL - Vitals Vital signs reviewed: Yes - General General: Alert and oriented X 3, No acute distress, Well developed/nourished - HEENT HEENT: PERRL, EOMI, Moist mucous membranes, Other (nasal swelling (symmetric) with TTP; bilateral infraorbital echymoses with swelling (over bilateral maxillary sinuses). 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 No: Distress (bilateral) Results - Vitals Vitals: Vital Signs - 24 hr 04/04/20 04/05/20 23:34 02:49 Temperature 36.3 C L Heart Rate 76 75 Respiratory 18 18 Rate Blood Pressure 106/50 L 114/51 L O2 Saturation 87 L 99 Oxygen O2 Source Nasal cannula - Rads (name of study) CT facial bones Radiology: Prelim report reviewed, See rad report PD MEDICAL DECISION MAKING - ED course Complexity details: reviewed results, re-evaluated patient, considered differential, d/w patient Departure - Departure Disposition: 01 Home, Self Care Clinical Impression: Fall, Nasal fracture Condition: Good Instructions: ED Fx Nasal Conf W X Ray, ED Fall Dizziness Weakn Balance Follow-Up: Heriberto Christopher MD [Primary Care Provider] - Within 1 week Discharge Date/Time: 04/05/20 03:08
--- NOTE | 2020-04-05 01:51 | CT Report ---
Reason: fall, facial injury Procedure Date: 04/05/2020 Accession Number: [id number] / [id number] Procedure: CT - MAXILLOFACIAL WO CPT Code: Final Report FULL RESULT: EXAM: CT MAXILLOFACIAL WITHOUT CONTRAST EXAM DATE: 04/05/2020 01:19 AM. CLINICAL HISTORY: Fall, facial injury. COMPARISONS: None. TECHNIQUE: Thin-section axial images were acquired of the face without contrast. Post-processing: Coronal and sagittal reformats. Other: None. In accordance with CT protocol optimization, one or more of the following dose reduction techniques were utilized for this exam: automated exposure control, adjustment of mA and/or KV based on patient size, or use of iterative reconstructive technique. FINDINGS: Soft Tissue: Nasal soft tissue swelling. Orbits: Symmetric and unremarkable. Bones: Comminuted, mildly displaced nasal bone fractures. Dental implants. Temporomandibular Joints: The temporomandibular joints are symmetric and normally located. Sinuses: Mild ethmoid mucosal thickening. Other: None. IMPRESSION: Comminuted, mildly displaced nasal bone fractures, with soft tissue swelling. RADIA
[2020-04-05 02:51] VITALS: BP 114/51
== END 2020-04-05 03:08 | disposition home or self-care (01) ==
LOC: EDUNIT# → ED 23:24
DX: S02.2XXA Fracture of nasal bones, initial encounter for closed fracture (principal); W01.190A Fall on same level from slipping, tripping and stumbling with subsequent striking against furniture, initial encounter; Y92.009 Unspecified place in unspecified non-institutional (private) residence as the place of occurrence of the external cause
CPT/HCPCS: 70486; 99284

== ENCOUNTER 2020-04-05 03:13 | Outpatient (CLI) | payer MEDICARE, OTHER | END 2020-04-05 03:14 | disposition home or self-care (01) | LOC: EMS 03:13 | PROVIDERS: ATTEND Surgery | DX: J44.9 Chronic obstructive pulmonary disease, unspecified (principal); Z99.81 Dependence on supplemental oxygen | CPT/HCPCS: A0425; A0428 ==

== ENCOUNTER 2020-04-15 17:12 | Outpatient (CLI) | payer MEDICARE, OTHER ==
--- NOTE | 2020-04-15 17:13 | CONSULTATION NOTE ---
Palliative Care Follow Up - Referral Referring Provider: Dr. Heriberto Christopher Time of Visit: [id number] Referral setting: Assisted living Referral Reason: PAH/Acute on Chronic Back Pain/Nose Fx - Information Sources Records reviewed: Previous records reviewed History/Review of Systems obtained from: Patient, Nursing (facility staff) Exam limitations: No limitations - History of Present Illness Update Brief HPI Update: This is a 79-year-old woman with severe COPD and severe progressing pulmonary arterial hypertension. She has had worsening shortness of breath, and poor activity tolerance, this is been slow on onset but progressive in nature. She now can only take a few steps, without pausing for recovery, denies any acute signs or symptoms of infection, with fever, chills, change in sputum. Her sputum fluctuates from light brown, to darker yellow. Her breath sounds are diminished throughout, with some expiratory wheezes on the left lower lobe. She wears her oxygen between 5 and 6 L, and though denies distress it is overwhelming at times for her. Patient's most significant quality of life issue, is her worsening back pain. She does feel like it has "shifted in location". It has been over the years fairly well located in her lower thoracic and lumbar area, known scoliosis and stenosis. Her history includes high-dose opioids, without any effect, her perception was her regular wine consumption was more effective than the opioids, and chose to wean off of opioids. More recently she has been trialed on gabapentin, pregabalin, without any improvement. She had described increased nature of sharp shooting pains particularly down her right leg, without any relief. She has been long-term on scheduled acetaminophen, diclofenac, topicals, lidocaine patches but is found the most effective is her now allotted 4 glasses of wine. At this point she would like to pursue possible injections, they have been helpful for her in the past, an appointment with [facility] orthopedic surgeons has been set up for 04/28. She also sees her PCP on 04/19, will see if he wants to consider some increased imaging given the changing nature of her pain. Patient was having multiple falls, and most recent a trip to the ED with the dx of nose fx on 04/04. She loses her balance easily, most likely exacerbated by her drinking. She is now been put back on limitations, and given notice if she cannot stay within the parameters or has another fall she will have to look for other living situation. This is caused her some increased anxiety, on top of all the limitations with COVID-19. Patient is unable to leave her room except for doctor's appointments, and has limited interaction other with staff. She is staying connected with her family through phone conversations. She is getting quite discouraged, with her diminishing quality of life, worsening respiratory status, and poorly controlled pain. Social History - Living Situation Living arrangement: Assisted living Support System: Patient has lived at [facility] living for many years now, she does have 2 sons. One son is in [facility] and the other in [place]. She does oversee all her care, and continues with decision-making capacity. She is somewhat anxious as she has no other options if this were not to continue here. Medications/Allergies - Medications Home Medications: Ambulatory Orders Medication Instructions Recorded Confirmed Cholecalciferol (Vitamin D3) 2,000 units PO DAILY 02/04/17 04/04/20 [Vitamin D3] Mometasone/Formoterol [Dulera 100 2 puffs INH BID 02/04/17 04/04/20 Mcg-5 Mcg Inhaler] Escitalopram [Lexapro] 10 mg PO DAILY 02/19/17 04/04/20 Loperamide [Imodium] 2 - 4 mg PO PRN PRN MDD NTE 6 tabs 09/29/17 04/04/20 in 24 hours Acetaminophen [Tylenol] 1,000 mg PO TID 01/30/18 04/04/20 Ipratropium [place] 2 sprays OMID Q8H PRN 01/30/18 04/04/20 Triamcinolone 0.1% Cream [Kenalog 1 applic TOP BID 01/30/18 04/04/20 0.1% Cream] Diclofenac Sodium/Misoprostol 1 tab PO DAILY 09/29/18 04/04/20 [Diclofenac-Misoprost 50-200 Tb] Lovastatin 40 mg PO QPM 09/29/18 04/04/20 Omeprazole 40 mg PO DAILY 09/29/18 04/04/20 Sildenafil Citrate 20 mg PO TID 09/29/18 04/04/20 Spironolactone 25 mg PO DAILY 09/29/18 04/04/20 Tiotropium [place] [Spiriva 2 inh PO DAILY 09/29/18 04/04/20 Respimat] Potassium Chloride [K-Dur] 10 meq PO DAILY MDD with meals 12/10/18 04/04/20 Albuterol Sulfate [Proair 2 puffs PO Q4H PRN 04/03/19 04/04/20 Respiclick] Docusate Sodium 100 mg PO DAILY PRN 04/03/19 04/04/20 Lidocaine Patch 5% [Lidoderm Patch] 1 patch TOP DAILY PRN MDD 16 04/03/19 04/04/20 Torsemide 20 mg PO DAILY 04/03/19 04/04/20 Guaifenesin [Mucinex] 600 tab PO DAILY 07/01/19 04/04/20 Multivit-Min/FA/Lycopen/Lutein 1 tab PO DAILY 07/01/19 04/04/20 [Centrum Silver Men Tablet] Senna [Senokot] 2 tab PO QPM PRN 07/01/19 04/04/20 Capsaicin 1 applic TOP BID PRN 08/14/19 04/04/20 Ambrisentan [Letairis] 10 mg DAILY 04/04/20 04/04/20 Fluticasone [Flonase] 1 spray DAILY 04/04/20 04/04/20 Loratadine [Claritin] 10 mg DAILY 04/04/20 04/04/20 Prednisone 10 mg DAILY 04/04/20 04/04/20 traZODone [Desyrel] 100 mg DAILY PM PRN 04/04/20 04/04/20 - Allergies Allergies/Adverse Reactions: Allergies Allergy/AdvReac Type Severity Reaction Status Date / Time cephalexin [From Keflex] Allergy Severe Unknown Verified 04/04/20 23:39 Sulfa (Sulfonamide Allergy Mild Rash Verified 04/04/20 23:39 Antibiotics) Review of Systems - Constitutional Constitutional: reports: Fatigue (worsening), Weight loss (111.7). denies: Fever, Chills - Eyes Eyes: reports: Vision loss, Corrective lenses - Ears, Nose & Throat Ears, Nose & Throat: reports: Nasal congestion (feels fx more difficulty; bleeding has resolved), Dry mouth - Cardiovascular Cardiovascular: reports: Exertional dyspnea, Decr. exercise tolerance, Orthopnea - Respiratory Respiratory: reports: Cough, Sputum production, Wheezing, SOB at rest (using albuterol inhaler frequently), SOB with exertion - Gastrointestinal Gastrointestinal: reports: Early satiety, Other (dislikes food). denies: Diarrhea (currently under control) - Musculoskeletal Musculoskeletal: reports: Back pain, Muscle aches, Stiffness, Limited range of motion, Muscle weakness, Assistive devices (has walker in room; diff. to maneuver so will leave behind at times) - Integumentary Integumentary: reports: Dryness, Nail changes, Other (multiple bruises and healing skin tears from falls) - Neurological Neurological: reports: General weakness, Numbness, Other (poor balance) - Psychiatric Psychiatric: reports: Depression, Anxiety - Hematologic/Lymphatic Hematologic/Lymphatic: reports: Bruising - All Other Systems All Other Systems: reports: Reviewed and negative Physical Exam - Vital Signs Temperature: 96.6 C Pulse Rate: 93 Respiratory Rate: 20 O2 Saturation: 95 (on 6 liters at rest) Blood Pressure: 118/72 - Physical Exam General Appearance: positive: Alert, Mild distress (related to back pain) Eyes Bilateral: positive: Other (bruising periorbitally; nose with some deviation to right;) ENT: positive: No signs of dehydration Neck: positive: Trachea midline Cardiovascular: positive: Regular rate & rhythm Respiratory: positive: Diminished throughout, Wheezes (fine exp on LLL) Abdomen: positive: Soft, Other (rounded and firm) Skin: positive: Pallor, Bruising, Wound (healed LE skin thin and fragile) Extremities: positive: No pedal edema Neurologic/Psychiatric: positive: Oriented x3, Weakness, Depressed mood/affect, Flat affect Palliative Care - POLST Patient has POLST: Yes POLST Status: DNR, Selective Treatment Pain: Pain worsening, Location (Patient describes pain as sharp shooting down right leg, does interfere with her gait, difficulty with weightbearing. She reports relieved with laying down, is reporting she is spending more time in bed, though staff reports she sits at the table for most of the day. She has not found anything that has given relief, though she does intermittently when it gets "so bad" takes the ibuprofen but does not notice much relief. Is able to sleep at night, but on awakening and with morning routine pain is most excruciating at this time.) Tiredness/Fatigue: Moderate (4-6) Drowsiness/Sedation: Mild (1-3) Nausea: None Anorexia: Moderate (4-6), Weight loss Dyspnea: Severe (7-10), Comment (perceives worsening; no acute s/s infection) Depression: Moderate (4-6) Anxiety: Moderate (4-6) Feelings of wellbeing/Perceived Quality of Life: Poor, Worsening Sleep: Sleep improved Constipation: No Performance Status: Patient's functional status is continue to decline. She spends most of her time in bed or sitting at her table. It is with increased breathlessness and pain for her to ambulate. Though she is continuing physical therapy for massage and some strengthening. She does need assistance with bathing, she can toilet independently. 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 She is finding it much more limiting, and medications not working. We did discuss that this juncture, patient most likely would meet criteria for hospice if she wanted to transition to focusing on comfort only, patient's response was at this point in time was "I am not ready to give up". She is aware to transition to hospice she would have to come off the Letairis. Her biggest quality of life issue currently, is her progressive back pain, she has been trialed on multiple medications, with minimal relief. She has had injections in the past, and is hopeful this may be an option. She does have a follow-up consults with [facility] by telemedicine on 04/28. She would be willing to undergo procedure for any "modicum of relief". Impression and Recommendations - Palliative Care Impression: This is a fragile 79-year-old woman with severe pulmonary arterial hypertension, advanced COPD, active alcoholism, and exacerbation of acute on chronic back pain. She most recently failed trial of pregabalin for addressing pain, and leaves very little left to trial. She would like to see if she is a candidate for injections. Patient is exhibiting increased depression, worsening dyspnea, and poorly controlled pain. Palliative care continue to provide support for symptom management as well as anticipatory guidance until transition to hospice. Recommendations/Counseling Done: 1. Acute on chronic back pain. Patient does report a shift from her baseline pain which is chronic and severe nature, to lower back and SI joint area. She would like x-rays or exams, will defer to orthopedist and/or PCP. She has benefited from injections in the past and hoping this is an option. Patient has intermittently taken on on ibuprofen, has bottle in room. Counseled on recommendations against using on a regular basis, would like permission to keep in her room. Recommended not to use on a regular basis, given she is already on diclofenac, prednisone, increases higher risk of bleeding, as well as most likely not to add to her pain relief. Will write order though so they will not remove it. 2. Pulmonary hypertension. Patient remains quite short of breath, continues have a slow but steady decline in her breathing, increased dyspnea marked difficulty with activity tolerance and more feelings of distress related to this. She has had a recent telemedicine visit with pulmonology, but no m edication changes made. Patient most likely at this point would meet criteria for hospice, though patient does not want to give up Letairus, though does not perceive effectiveness. Patient is using her inhaler much more frequently, with minimal effect. Counseling provided regarding recommended less frequent use given ineffectiveness, and most likely adding to side effects. 3. Weight loss. Patient continues to have weight loss, this is related to her dislike of the food and moderate anorexia. She is hoping restrictions will lift soon, though in follow-up it appears it may not be until June. 4. Alcoholism. Patient does perceive her use of wine as intervention for her pain control. Because of her frequent falls, they have gone back to dispensing this, much to her distress but she is willing to cooperate. Room sweeps have been negative. Patient has minimal insight into this, this is been a long-term problem for her and has caused problems in the past. She does report she has been through rehab before, and is not willing at this point in time to consider changing behavior given her high level of distress. Patient is currently on probation, did follow-up with hospital medicine director for assisted living, regarding concerns and strategies to better support patient as well as keep her safe. 5. Advanced care planning. Patient will continue on palliative care, though most likely would meet hospice criteria at this point it is not aligned with her goals. We will continue to provide support both psychosocial and anticipatory guidance. Time Spent: 75 minutes with greater than 50% of this done in counseling, providing psychosocial support and assist with orthopedic referral, coordination of care with clinical staff, and anticipatory guidance provided to patient.
== END 2020-04-15 17:13 | disposition home or self-care (01) ==
LOC: PC 17:12
PROVIDERS: ATTEND Nurse Practitioner Adult Health
DX: Z51.5 Encounter for palliative care (principal); J44.9 Chronic obstructive pulmonary disease, unspecified; I27.21 Secondary pulmonary arterial hypertension; G89.29 Other chronic pain; F10.20 Alcohol dependence, uncomplicated; M54.5 Low back pain; R68.81 Early satiety; R63.4 Abnormal weight loss; R53.83 Other fatigue; Z79.899 Other long term (current) drug therapy; Z79.52 Long term (current) use of systemic steroids; Z91.81 History of falling; Z66 Do not resuscitate

== ENCOUNTER 2020-06-01 11:38 | Outpatient (CLI) | payer MEDICARE, OTHER ==
[2020-06-01 19:19] LABS: BASOPHILS % (AUTO) 0.4 %; EOSINOPHILS % (AUTO) 0.1 %; HGB - HEMOGLOBIN 11.1 g/dL (12.0-16.0); LYMPHOCYTES # (AUTO) 0.4 10^3/uL (1.5-3.5); LYMPHOCYTES % (AUTO) 4.1 %; MEAN CORPUSCULAR HEMOGLOBIN 33.1 pg (27.0-31.0); MEAN CORPUSCULAR VOLUME 103.6 fL (81.0-99.0); MEAN PLATELET VOLUME 9.8 fL (7.9-10.8); MONOCYTES # (AUTO) 0.4 10^3/uL (0.0-1.0); MONOCYTES % (AUTO) 4.2 %; NEUTROPHILS # (AUTO) 7.7 10^3/uL (1.5-6.6); NEUTROPHILS % (AUTO) 90.8 %; PLT - PLATELET COUNT 197 10^3/uL (130-450); RED BLOOD COUNT 3.35 10^6/uL (4.20-5.40); RED CELL DISTRIBUTION WIDTH 13.5 % (12.0-15.0); WHITE BLOOD COUNT 8.5 x10^3/uL (4.8-10.8)
[2020-06-01 19:43] LABS: ALBUMIN 4.5 g/dL (3.2-5.5); ALBUMIN/GLOBULIN RATIO 1.9 (1.0-2.2); BILIRUBIN,TOTAL 0.7 mg/dL (0.2-1.0); CALCIUM 9.3 mg/dL (8.5-10.3); TOTAL PROTEIN 6.9 g/dL (6.7-8.2)
== END 2020-06-01 23:59 | disposition home or self-care (01) ==
LOC: LAB.WCP 11:38
PROVIDERS: ATTEND Family Medicine
DX: R19.7 Diarrhea, unspecified (principal); S02.2XXA Fracture of nasal bones, initial encounter for closed fracture; I27.21 Secondary pulmonary arterial hypertension; J84.10 Pulmonary fibrosis, unspecified; J96.10 Chronic respiratory failure, unspecified whether with hypoxia or hypercapnia; D69.6 Thrombocytopenia, unspecified; K21.9 Gastro-esophageal reflux disease without esophagitis; I73.00 Raynaud's syndrome without gangrene; G89.4 Chronic pain syndrome
CPT/HCPCS: 36415; 80053; 84443; 85025

== ENCOUNTER 2020-08-04 11:45 | Outpatient (CLI) | payer MEDICARE, OTHER ==
--- NOTE | 2020-08-04 17:49 | CONSULTATION NOTE ---
Palliative Care Follow Up - Referral Referring Provider: Dr. Heriberto Christopher Time of Visit: [id number] Referral setting: Assisted living Referral Reason: f/up GLF/Pulmonary HTN/Back Pain - Information Sources Records reviewed: Previous records reviewed History/Review of Systems obtained from: Patient Exam limitations: No limitations - History of Present Illness Update Brief HPI Update: This is a 79-year-old woman with severe COPD, progressing pulmonary arterial hypertension, who continues to struggle with worsening shortness of breath, poor activity tolerance, this is continue to be slow but progressive in nature. Unfortunately she had a ground-level fall, this was related to her drinking. She has been out for a orthopedic appointment, and came back fairly inebriated. She did fall and hit her head against the wall, with significant bruising on the top of her head, there is still residual "goose egg" 2 x 4 cm areas on top of the head, and other 2 x 3 cm raised on her left side of her head. She does have a bruise on her right forearm, as well as bruising on her lower legs. She also has residual bleeding in her face from her head injury, with significant bruising through her forehead and cheekbones. She originally did have some residual headache, this is improving, she has not had any abnormal neurologic signs reported by staff, she was on neurochecks. She did not go to the ED, and remained quite belligerent into that afternoon and evening. Staff report did not seen any further signs or symptoms of overuse in the meantime, I am meeting with her today to follow-up. Patient presents again with no insight into her behaviors, and is on quarantine as she had gone out at the facility without their transportation. Patient was able to get an injection for her back with only minimal relief, she is to get another one in her SI joint on 08/18. Most of her pain is localized into her left sacral /hip area. She still continues with severe pain with standing, relief with sitting or lying. She has trialed both gabapentin and pregabalin without any benefit, has chosen her wine over opioids. She does use topicals including CBD, intermittent lidocaine patches, her diclofenac oral and topical gel, and is still working with physical therapy with limited effect. She has been more distraught with the increased isolation from [place] [id number], she has not seen her family since the holidays, she does talk to them on the phone and is hoping to have a visit soon. They are fairly strict limitations on how visits can happen, and very limited on time so is hard to ask her family to come from [place] for 30-minute visit. She has been impacted by all the news media, and by the restrictions on her activities particularly now she is in quarantine. She continues to be challenged by her breathing, that is her most limiting factor as far as any kind of activity. She is significantly more tired these days, needing frequent rests. She also needs frequent rest with any kind of activity with a decline in her oxygen saturations. She does have diminished breath sounds throughout. She has not had any recent infections. Patient also has no lower extremity edema, does present with blood pressure 102/64. She had been originally started on the torsemide for swelling in her feet, this is since resolved, will discontinue this and evaluate response. She remains on her spironolactone. Social History - Living Situation Living arrangement: Assisted living Support System: Patient has long-term lived at [facility], continues to challenge staff with her behaviors, she has been on probation, she does not perceive she is on currently my understanding was she was going to be put on probation again. She does have 2 sons, one in [place], and one in [facility]. She has lived in the community for long period of time, and has some friends, but they are all aging such as herself, she is reflecting on loss of close friendships. Medications/Allergies - Medications Home Medications: Ambulatory Orders Medication Instructions Recorded Confirmed Cholecalciferol (Vitamin D3) 2,000 units PO DAILY 02/04/17 08/05/20 [Vitamin D3] Mometasone/Formoterol [Dulera 100 2 puffs INH BID 02/04/17 08/05/20 Mcg-5 Mcg Inhaler] Escitalopram [Lexapro] 10 mg PO DAILY 02/19/17 08/05/20 Loperamide [Imodium] 2 - 4 mg PO PRN PRN MDD NTE 6 tabs 09/29/17 08/05/20 in 24 hours Acetaminophen [Tylenol] 1,000 mg PO TID PRN 01/30/18 08/05/20 Ipratropium [place] 2 sprays OMID Q8H PRN 01/30/18 08/05/20 Diclofenac Sodium/Misoprostol 1 tab PO DAILY 09/29/18 08/05/20 [Diclofenac-Misoprost 50-200 Tb] Lovastatin 40 mg PO QPM 09/29/18 08/05/20 Omeprazole 40 mg PO DAILY 09/29/18 08/05/20 Sildenafil Citrate 20 mg PO TID 09/29/18 08/05/20 Spironolactone 25 mg PO DAILY 09/29/18 08/05/20 Tiotropium [place] [Spiriva 2 inh PO DAILY 09/29/18 08/05/20 Respimat] Potassium Chloride [K-Dur] 10 meq PO DAILY MDD with meals 12/10/18 08/05/20 Albuterol Sulfate [Proair 2 puffs PO Q4H PRN 04/03/19 08/05/20 Respiclick] Lidocaine Patch 5% [Lidoderm Patch] 1 patch TOP DAILY PRN MDD 16 04/03/19 08/05/20 Guaifenesin [Mucinex] 600 tab PO DAILY 07/01/19 08/05/20 Multivit-Min/FA/Lycopen/Lutein 1 tab PO DAILY 07/01/19 08/05/20 [Centrum Silver Men Tablet] Capsaicin 1 applic TOP BID PRN 08/14/19 08/05/20 Ambrisentan [Letairis] 10 mg DAILY 04/04/20 08/05/20 Fluticasone [Flonase] 1 spray DAILY 04/04/20 08/05/20 Loratadine [Claritin] 10 mg DAILY 04/04/20 08/05/20 Prednisone 10 mg DAILY 04/04/20 08/05/20 traZODone [Desyrel] 100 mg DAILY PM PRN 04/04/20 08/05/20 Diclofenac Sodium [Voltaren 4 mg PO BID MDD hands 08/05/20 08/05/20 Arthritis Pain] Ondansetron [Ondansetron Odt] 4 mg PO Q6HR PRN 08/05/20 08/05/20 Simethicone [Gas Relief] 125 mg PO QID PRN 08/05/20 08/05/20 diphenhydrAMINE [Benadryl] 25 - 50 mg PO DAILY PRN 08/05/20 08/05/20 - Allergies Allergies/Adverse Reactions: Allergies Allergy/AdvReac Type Severity Reaction Status Date / Time cephalexin [From Keflex] Allergy Severe Unknown Verified 06/08/20 10:22 Sulfa (Sulfonamide Allergy Mild Rash Verified 06/08/20 10:22 Antibiotics) Review of Systems - Constitutional Constitutional: reports: Fatigue (worsening), Weight loss (115). denies: Fever, Chills - Eyes Eyes: reports: Vision loss, Corrective lenses - Ears, Nose & Throat Ears, Nose & Throat: reports: Hearing loss (mild), Dry mouth - Cardiovascular Cardiovascular: reports: Chest pain (occasional with increased respiratory e ffort), Lightheadedness, Exertional dyspnea, Decr. exercise tolerance. denies: Edema - Respiratory Respiratory: reports: Cough, SOB at rest (at times), SOB with exertion. denies: Hemoptysis - Gastrointestinal Gastrointestinal: reports: Diarrhea (controlled with am loperamide), Reflux/heartburn, Bloating, Early satiety. denies: Nausea - Musculoskeletal Musculoskeletal: reports: Muscle pain, Back pain, Muscle aches, Stiffness, Muscle weakness, Joint pain, Assistive devices (use walker when out of room) - Integumentary Integumentary: reports: Dryness, Other (bruising from fall) - Neurological Neurological: reports: General weakness, Numbness (bilateral peripheral neuropathy), Abnormal gait. denies: Headache - Psychiatric Psychiatric: reports: Depression, Anxiety - Hematologic/Lymphatic Hematologic/Lymphatic: denies: Recurrent infections - All Other Systems All Other Systems: reports: Reviewed and negative Physical Exam - Vital Signs Temperature: 97.3 C Pulse Rate: 88 Respiratory Rate: 20 O2 Saturation: 89 (with ambulation on 6 liters 5 feet; returned to 91% after 5 minutes) - Physical Exam General Appearance: positive: No acute distress, Alert Eyes Bilateral: positive: Normal inspection ENT: positive: No signs of dehydration Neck: positive: Trachea midline, Other (cushingnoid appearance). negative: Lymphadenopathy (R), Lymphadenopathy (L) Cardiovascular: positive: Regular rate & rhythm Respiratory: positive: Diminished throughout. negative: No respiratory distress (respiratory effort with activity noted), Wheezes Abdomen: positive: Soft, Tenderness, Distended Skin: positive: Pallor, Dryness, Bruising, Other (hematoma on head top 2 x 3 cm raised/tender firm; left side 1 x 1.5 cm tender and raised). negative: Wound Extremities: positive: No pedal edema Neurologic/Psychiatric: positive: Oriented x3, Mood/affect nml, Weakness, Flat affect Palliative Care - POLST Patient has POLST: Yes POLST Status: DNR, Selective Treatment Pain: Pain worsening, Location (New acute pain on top of head, mostly with palpation or pressure. Back pain continues to worsen, more focused in her lower left sacral and left hip area.) Tiredness/Fatigue: Moderate (4-6) Drowsiness/Sedation: Moderate (4-6) Nausea: None Anorexia: Mild (1-3) Dyspnea: Severe (7-10) Depression: Moderate (4-6) Anxiety: Mild (1-3) Feelings of wellbeing/Perceived Quality of Life: Fair, Acceptable, Worsening Sleep: Sleeps well Performance Status: Patient is quite sedentary, does ambulate short distances in her room. Sits at most times at her table, or in bed. Reports she is sleeping more, and still able to sleep at night. She is able to independently toilet, standby assistance for bathing, patient can still dress herself and feed herself.I would put her at a PPS though of 60% - Palliative Care Discussion: Patient continues to be challenged by her limitations regarding both her breathlessness and pain. She is getting weary with the COVID-19 pandemic and unrest in the bigger picture. She is missing being able to see her family, and finds the restrictions quite burdensome. She does find herself sleeping a lot, tries to stay engaged in contact with friends and family, but does feel like a prisoner. Impression and Recommendations - Palliative Care Impression: This is a fragile 79-year-old woman with severe pulmonary arterial hypertension, advanced COPD, active alcoholism, acute on chronic back pain, suffering the sequela of a recent fall as a result of her drinking. She does present with significant hematoma on the top and side of her head, fairly impressive bruising patterns, he does feel like she is recovering. She is due for a follow-up injection, of her left SI joint on 08/18, is hopeful that we will improve her acute exacerbated pain. Patient continues with high symptom burden, palliative care to provide support for symptom management, as well as anticipatory guidance until transition to hospice. Recommendations/Counseling Done: 1. Hypotension. Patient presents with intermittent lightheadedness, blood pressure 102/64, remains on torsemide 20 mg and has had no recurrence of her lower extremity edema. Will discontinue for now, this is in agreement with patient, and monitor blood pressure and swelling for next week. 2. Acute on chronic back pain. Patient is to receive injection in her SI joint area, she does understand from her orthopedist her stenosis and scoliosis is worsening. She remains quite sedentary and limited by her pain, and continues at high risk for falls. 3. Pulmonary arterial hypertension. Patient remains quite dyspneic, desats easily with any kind of activity, has had slow decline in her breathing, as well as increasing fatigue. She reports she does "run out of air and energy", then needs to rest, which usually results in napping. He does at this point most likely meet criteria for hospice, though does not want to give up her Latera's. She does feel it is manageable at this point in time. 4. Alcoholism. Patient perceives her use of wine as an intervention for pain control, she is consistently taking 4 glasses a day. Unfortunately when she was out the other day she did become inebriated, resulting in a ground-level fall. Patient has very little insight or recall of this, continues to create problems with staff. Patient continues to make poor choices around this. 5. Advanced care planning. Patient continues on palliative care, with intermittent visits for support and follow-up. She does have a POLST in place with [facility], but would accept hospitalization at this point. She continues to try and avoid ED visits, she continues to weigh decisions based on quality of life issues, she is getting quite fatigued related to restrictions from pandemic. She perceives this is impacting her quality of life more significantly than her illness at this point. She very much misses time with her family. Time Spent: 45 minutes with greater than 50% of this done in counseling regarding pain and symptom management, management of anxiety and depression, and anticipatory guidance. Also coordination of care with clinical staff.
== END 2020-08-04 11:46 | disposition home or self-care (01) ==
LOC: PC 11:45
PROVIDERS: ATTEND Nurse Practitioner Adult Health
DX: Z51.5 Encounter for palliative care (principal); I95.9 Hypotension, unspecified; M54.9 Dorsalgia, unspecified; G89.29 Other chronic pain; I27.0 Primary pulmonary hypertension; F10.20 Alcohol dependence, uncomplicated; J44.9 Chronic obstructive pulmonary disease, unspecified; Z66 Do not resuscitate

== ENCOUNTER 2020-10-14 09:30 | Outpatient (CLI) | payer MEDICARE, OTHER ==
--- NOTE | 2020-10-15 16:09 | CONSULTATION NOTE ---
Palliative Care Follow Up - Referral Referring Provider: Dr. Christopher Time of Visit: SUNDAY 10/14 [id number] Referral setting: Assisted living Referral Reason: COPD/Rhinitis/Pulm HTN/Anxiety - Information Sources Records reviewed: Previous records reviewed History/Review of Systems obtained from: Patient Exam limitations: No limitations - History of Present Illness Update Brief HPI Update: This is a 79-year-old woman with severe COPD, progressing pulmonary arterial hypertension, alcoholism, chronic back pain, and worsening rhinitis. She continues with high symptom burden including shortness of breath, poor activity tolerance, this continues to be slow but progressive in nature. She has not had any recent falls, she is still seeing physical therapy, they are mostly keeping her functional with walking. She complains of sleeping more, with increased fatigue, but also is sleeping through the night. She continues with severe back pain, had trialed multiple medications and topicals, currently she has had some relief from her injections, that most of her pain is localized to her left sacral/hip area. She has more severe pain with standing and relieved with sitting or lying. She has been trialed on opioids, gabapentin and pregabalin, and she uses her wine and topicals as her interventions. Patient recently saw her outdoor studies director, she continues to be curious regarding her end-of-life event. She very much wants to avoid hospitalization and ED visits. She does have a POLST with [facility] and selective treatments. She is very much isolated, and now her facility is on lock down. She currently is on prednisone 10 mg, she has been trialed off this twice now, with poor tolerance for her breathlessness and poor sense of wellbeing. Given her conversation with her outdoor studies director, we revisited again, but she feels the benefits outweigh the risks at this time. She also remains hypotensive with 92/62, we have trialed her off the torsemide related to her worsening dizziness, but she did not tolerate this with weight gain. They are to hold her torsemide if her blood pressure is less than 100/50. May need to consider every other day dosing. Patient's biggest complaint had been her rhinitis, most likely attributed to her high oxygen flow. We had changed up her antihistamine, she has not been consistent with her ipratropium bromide nasal spray, drainage is clear, no signs or symptoms of sinusitis. Past Medical History: Pulmonary hypertension, centrilobular emphysema, end-stage COPD chronic respiratory failure, pulmonary fibrosis, diastolic CHF, hypertension, chronic pain, HLD, history of iron deficiency anemia, history of thrombocytopenia, GERD, depression, anxiety, osteoarthritis, former smoker 100 pack years, alcoholism Social History - Living Situation Living arrangement: Assisted living Support System: Patient is long-term lived at [facility], continues to challenge staff with her behaviors, she has been on and off probation related to her drinking. She does have 2 sons, one in [place], the one in [facility] is recently returned. She is quite upset she is not now able to do visiting with the [employer]. She does try to stay connected through media and phone calls, but is getting quite discouraged, as it has been since the holidays last year she has seen them. Medications/Allergies - Medications Home Medications: Ambulatory Orders Medication Instructions Recorded Confirmed Cholecalciferol (Vitamin D3) 2,000 units PO DAILY 02/04/17 10/16/20 [Vitamin D3] Mometasone/Formoterol [Dulera 100 2 puffs INH BID 02/04/17 10/16/20 Mcg-5 Mcg Inhaler] Escitalopram [Lexapro] 10 mg PO DAILY 02/19/17 10/16/20 Loperamide [Imodium] 2 - 4 mg PO PRN PRN MDD NTE 6 tabs 09/29/17 10/16/20 in 24 hours Acetaminophen [Tylenol] 1,000 mg PO TID PRN 01/30/18 10/16/20 Ipratropium Baldwin 2 sprays OMID Q8H 01/30/18 10/16/20 Diclofenac Sodium/Misoprostol 1 tab PO DAILY 09/29/18 10/16/20 [Diclofenac-Misoprost 50-200 Tb] Lovastatin 40 mg PO QPM 09/29/18 10/16/20 Omeprazole 40 mg PO DAILY 09/29/18 10/16/20 Sildenafil Citrate 20 mg PO TID 09/29/18 10/16/20 Spironolactone 25 mg PO DAILY 09/29/18 10/16/20 Tiotropium Baldwin [Spiriva 2 inh PO DAILY 09/29/18 10/16/20 Respimat] Potassium Chloride [K-Dur] 10 meq PO DAILY MDD with meals 12/10/18 10/16/20 Albuterol Sulfate [Proair 2 puffs PO Q4H PRN 04/03/19 10/16/20 Respiclick] Lidocaine Patch 5% [Lidoderm Patch] 1 patch TOP DAILY PRN MDD 16 04/03/19 10/16/20 Guaifenesin [Mucinex] 600 tab PO DAILY 07/01/19 10/16/20 Multivit-Min/FA/Lycopen/Lutein 1 tab PO DAILY 07/01/19 10/16/20 [Centrum Silver Men Tablet] Ambrisentan [Letairis] 10 mg DAILY 04/04/20 10/16/20 Fluticasone [Flonase] 1 spray BID 04/04/20 10/16/20 Prednisone 10 mg DAILY 04/04/20 10/16/20 traZODone [Desyrel] 100 mg DAILY PM PRN 04/04/20 10/16/20 Diclofenac Sodium [Voltaren 4 mg PO BID MDD hands 08/05/20 10/16/20 Arthritis Pain] Ondansetron [Ondansetron Odt] 4 mg PO Q6HR PRN 08/05/20 10/16/20 Simethicone [Gas Relief] 125 mg PO QID PRN 08/05/20 10/16/20 diphenhydrAMINE [Benadryl] 25 - 50 mg PO DAILY PRN 08/05/20 10/16/20 Fexofenadine HCl 180 mg PO DAILY 10/16/20 10/16/20 - Allergies Allergies/Adverse Reactions: Allergies Allergy/AdvReac Type Severity Reaction Status Date / Time cephalexin [From Keflex] Allergy Severe Unknown Verified 06/08/20 10:22 Sulfa (Sulfonamide Allergy Mild Rash Verified 06/08/20 10:22 Antibiotics) Review of Systems - Constitutional Constitutional: reports: Fatigue (worsening), Weight stable. denies: Fever, Chills - Eyes Eyes: reports: Blurred vision, Vision loss, Corrective lenses - Ears, Nose & Throat Ears, Nose & Throat: reports: Nasal congestion, Postnasal drainage (clear), Dry mouth - Cardiovascular Cardiovascular: reports: Lightheadedness, Exertional dyspnea, Decr. exercise tolerance. denies: Chest pain, Edema - Respiratory Respiratory: reports: Cough, Sputum production (yellow), Wheezing, SOB at rest, SOB with exertion, Pleuritic pain - Gastrointestinal Gastrointestinal: reports: Diarrhea (uses loperamide daily), Bloating, Early satiety, Other (dislikes food) - Genitourinary Genitourinary: reports: Frequency - Musculoskeletal Musculoskeletal: reports: Back pain, Muscle aches (LE), Stiffness, Limited range of motion, Muscle weakness, Assistive devices (uses walker in apartment) - Integumentary Integumentary: reports: Dryness - Neurological Neurological: reports: General weakness, Numbness (left leg), Abnormal gait - Psychiatric Psychiatric: reports: Depression, Anxiety, Other (irritable) - All Other Systems All Other Systems: reports: Reviewed and negative Physical Exam - Vital Signs Temperature: 97.0 C Pulse Rate: 81 Respiratory Rate: 18 O2 Saturation: 98 (6 liters) Blood Pressure: 92/62 - Physical Exam General Appearance: positive: No acute distress, Alert Eyes Bilateral: positive: Normal inspection ENT: positive: No signs of dehydration Neck: positive: Trachea midline, Other (cushingnoid appearance). negative: Lymphadenopathy (R), Lymphadenopathy (L) Cardiovascular: positive: Regular rate & rhythm Respiratory: positive: Diminished throughout. negative: No respiratory distress (respiratory effort with activity noted), Wheezes Abdomen: positive: Soft, Tenderness, Distended Skin: positive: Pallor, Dryness. negative: Wound Extremities: positive: No pedal edema Neurologic/Psychiatric: positive: Oriented x3, Mood/affect nml, Weakness, Flat affect Palliative Care - POLST Patient has POLST: Yes POLST Status: DNR, Selective Treatment Pain: Pain unchanged, Location (lower back/left hip radiating down thigh; b ilateral lower calves "ache"), Severity (7/10), Comment (Patient continues to use 4 glasses of wine daily for her pain control, staff do distribute this as it has been problematic before.) Tiredness/Fatigue: Severe (7-10) Drowsiness/Sedation: Moderate (4-6) (noting sleeping more;) Nausea: None Anorexia: Mild (1-3) Dyspnea: Severe (7-10) Depression: Moderate (4-6) Anxiety: Moderate (4-6) Feelings of wellbeing/Perceived Quality of Life: Fair, Acceptable, Worsening Sleep: Sleeps well Constipation: No Performance Status: It is a taxing effort for her to leave the room, and was quite exhausted with her trip out but somewhat energized also as she has been housebound for months. She is still doing short ambulatory distances with PT. She is mostly in her room and sedentary, given her pain relief she does spend quite a bit of time in bed, thus complains frequently of napping. But she is also quite bored. She does need assistance with showering, she is able to dress independently and feed independently. She spends most her time doing crossword's and reading. - Palliative Care Discussion: Patient is pleased that the collections are over, is hoping there will be some more sanity. She is though quite distressed with recent lockdown at a facility, this has now limited visiting even more so. She is quite isolated, has escalating anxiety regarding this. She does recognize the seriousness of her illness, and was feeling somewhat reassured after her visit with her pulm onologist yesterday. We did discuss in the context of the role of hospice, the goal is to keep her comfortable and provide a doubtful of suffering or struggling. Impression and Recommendations - Palliative Care Impression: This is a fragile 79-year-old woman with severe pulmonary arterial hypertension, advanced COPD, active alcoholism, acute on chronic back pain, rhinitis, and presenting with persistent anxiety. Patient continues with high symptom burden, palliative care to provide support for symptom management, counseling, as well as anticipatory guidance until transition to hospice. Recommendations/Counseling Done: 1. Rhinitis. Patient complaining of increased nasal congestion, clear fluid. Most likely irritation from high oxygen flow. Had switched from loratidine to fexofenadine, and increased flonase. Does have ipratropium bromide nasal spray, has not been consistently using even though got new prescription. Counseling provided regarding rationale, encouraged again to initiate on a regular basis. 2. Hypotension. Patient presents with intermittent lightheadedness, blood pressure today 92/62. Patient had been tapered off torsemide 20 mg, with recurrent lower extremity edema. Remains now with no swelling. May consider alternate day dosing of torsemide, if hypotension persists. 3. Chronic pain syndrome. Patient has had some improvement with her injections, have trialed multiple medications without improvement. Patient continues to prefer her wine over opioids, is using topicals with some relief. Unclear if has maximized limit of injections, will follow up with orthopod. 3. Pulmonary arterial hypertension. Patient remains quite dyspneic, desats easily with any kind of activity, has had worsening dyspnea. Patient is sleeping more, at this point wants to continue on her medications. She does feel it is manageable at this time, though does see her quality of life is deteriorating. Will transition to hospice when patient is ready, she does present with ongoing decline. 4. Alcoholism. Patient perceives her use of wine is intervention for pain control, she is consistently taking 4 glasses a day. At times she does present with high risk for falls, as she is aware of the risk of this. Currently she is not had any recent falls nor [place] outside alcohol so has been managing. 5. Anxiety. This is multifactorial, patient with increased isolation, now with more restrictions in facility. Given the pandemic. She has had limited access in interaction with her family, had been looking forward to the holidays this may be further quelled. Remains an unfortunate situation, with more restrictions for assisted living. 6. Advanced care planning. Patient continues on palliative care, intermittent visits for support and follow-up. She does have a POLST in place with [facility] but would accept hospitalization at this point. She continues to try to avoid ED visits, ways decisions based on quality of life issues. Restrictions regarding pandemic, are impacting quality of life more significantly than her illness at this point, she very much misses time with her family. Time Spent: 60 minutes with greater than 50% of this done in counseling and psychosocial support, review of symptom management, and anticipatory guidance.
== END 2020-10-14 09:31 | disposition home or self-care (01) ==
LOC: PC 09:30
PROVIDERS: ATTEND Nurse Practitioner Adult Health
DX: Z51.5 Encounter for palliative care (principal); J44.9 Chronic obstructive pulmonary disease, unspecified; I27.21 Secondary pulmonary arterial hypertension; J31.0 Chronic rhinitis; F41.9 Anxiety disorder, unspecified; I95.9 Hypotension, unspecified; G89.29 Other chronic pain; F10.20 Alcohol dependence, uncomplicated; Z79.899 Other long term (current) drug therapy; Z79.52 Long term (current) use of systemic steroids; Z99.81 Dependence on supplemental oxygen; Z66 Do not resuscitate

== ENCOUNTER 2020-12-12 11:15 | Outpatient (CLI) | payer MEDICARE, OTHER ==
--- NOTE | 2020-12-12 17:52 | CONSULTATION NOTE ---
Palliative Care Follow Up - Referral Referring Provider: Dr. Christopher Time of Visit: 11112 Referral setting: Assisted living Referral Reason: COPD/Pulm HTN/Anxiety - Information Sources Records reviewed: Previous records reviewed History/Review of Systems obtained from: Patient Exam limitations: No limitations - History of Present Illness Update Brief HPI Update: This is a 79-year-old woman with severe COPD. Progressing pulmonary arterial hypertension, alcoholism, chronic back pain, and worsening right shoulder pain. She continues with high symptom burden including shortness of breath, poor activity tolerance, she has not had any recent falls, but is feeling overwhelmed overall by this the chronicity of the pandemic, local climate, and social isolation. She was unable to see her family, did have a window visit, and Skype, but her son had been visiting from [facility]. Patient reports over the last 2 to 3 weeks, had worsening left shoulder pain, did go see her PCP, for which she got a cortisone shot in her shoulder actually with good relief. He also restarted her on some scheduled acetaminophen, and low-dose tramadol 50 mg twice daily. She feels though her range of motion has improved and is happy with the results currently. She has in the past had some injections for her sacral/back pain, with improvement for short period of time, though this is worsening as well, feels it has "flared up". She continues to drink 4 glasses of wine a day, this is what she uses to manage her pain, reports it helps her to relax and decreases the stress of her chronic pain. When asked what has changed, she reports she is sleeping more and her dyspnea/activity tolerance is worsening. With her pain, she is much more comfortable when she lays down, worse with standing or walking, and some increased discomfort with sitting. She is still working with physical therapy, though this is coming to an end. They have been working on progressive ambulation, she did follow-up with physical therapy they do feel like she is walking better. She is quite upset because she is also out of her Letaris for about a week and a half, though has not noted any severe increase in shortness of breath or changes related to this. Past Medical History: Pulmonary hypertension, centrilobular emphysema, end-stage COPD, chronic respiratory failure, pulmonary fibrosis, diastolic CHF, hypertension, chronic pain, HLD, history of iron deficiency anemia, history of thrombus cytopenia, GERD, depression, last anxiety, osteoarthritis, former smoker 100 pack years, alcoholism Social History - Living Situation Living arrangement: Assisted living Support System: Patient lives at [facility], she has been there several years. They have been on lockdown because of the pandemic, so very much isolated to the rooms. More recently with outbreak, now restricted again for visitors. Unfortunately this happened over the holidays. 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 Medications/Allergies - Medications Home Medications: Ambulatory Orders Medication Instructions Recorded Confirmed Cholecalciferol (Vitamin D3) 2,000 units PO DAILY 02/04/17 12/13/20 [Vitamin D3] Mometasone/Formoterol [Dulera 100 2 puffs INH BID 02/04/17 12/13/20 Mcg-5 Mcg Inhaler] Escitalopram [Lexapro] 10 mg PO DAILY 02/19/17 12/13/20 Loperamide [Imodium] 2 - 4 mg PO PRN PRN MDD NTE 6 tabs 09/29/17 12/13/20 in 24 hours Acetaminophen [Tylenol] 500 mg PO BID 01/30/18 12/13/20 Ipratropium [place] 2 sprays OMID Q8H 01/30/18 12/13/20 Diclofenac Sodium/Misoprostol 1 tab PO DAILY 09/29/18 12/13/20 [Diclofenac-Misoprost 50-200 Tb] Lovastatin 40 mg PO QPM 09/29/18 12/13/20 Omeprazole 40 mg PO DAILY 09/29/18 12/13/20 Sildenafil Citrate 20 mg PO TID 09/29/18 12/13/20 Spironolactone 25 mg PO DAILY 09/29/18 12/13/20 Tiotropium [place] [Spiriva 2 inh PO DAILY 09/29/18 12/13/20 Respimat] Potassium Chloride [K-Dur] 10 meq PO DAILY MDD with meals 12/10/18 12/13/20 Albuterol Sulfate [Proair 2 puffs PO Q4H PRN 04/03/19 12/13/20 Respiclick] Lidocaine Patch 5% [Lidoderm Patch] 1 patch TOP DAILY PRN MDD 16 04/03/19 12/13/20 Guaifenesin [Mucinex] 600 tab PO DAILY 07/01/19 12/13/20 Multivit-Min/FA/Lycopen/Lutein 1 tab PO DAILY 07/01/19 12/13/20 [Centrum Silver Men Tablet] Ambrisentan [Letairis] 10 mg DAILY 04/04/20 12/13/20 Fluticasone [Flonase] 1 spray BID 04/04/20 12/13/20 Prednisone 10 mg DAILY 04/04/20 12/13/20 traZODone [Desyrel] 100 mg DAILY PM PRN 04/04/20 12/13/20 Diclofenac Sodium [Voltaren 4 mg PO BID MDD hands 08/05/20 12/13/20 Arthritis Pain] Ondansetron [Ondansetron Odt] 4 mg PO Q6HR PRN 08/05/20 12/13/20 Simethicone [Gas Relief] 125 mg PO QID PRN 08/05/20 12/13/20 diphenhydrAMINE [Benadryl] 25 - 50 mg PO DAILY PRN 08/05/20 12/13/20 Fexofenadine HCl 180 mg PO DAILY 10/16/20 12/13/20 Torsemide 20 mg PO DAILY 12/13/20 12/13/20 Triamcinolone 0.1% Cream [Kenalog 1 applic TOP BID PRN 12/13/20 12/13/20 0.1% Cream] traMADol [Ultram] 50 mg PO BID 12/13/20 12/13/20 - Allergies Allergies/Adverse Reactions: Allergies Allergy/AdvReac Type Severity Reaction Status Date / Time cephalexin [From Keflex] Allergy Severe Unknown Verified 12/07/20 11:49 Sulfa (Sulfonamide Allergy Mild Rash Verified 12/07/20 11:49 Antibiotics) Review of Systems - Constitutional Constitutional: reports: Fatigue (remains persistent), Weight stable (119). denies: Fever, Chills - Eyes Eyes: reports: Blurred vision, Vision loss, Corrective lenses - Ears, Nose & Throat Ears, Nose & Throat: reports: Nasal congestion, Postnasal drainage (clear), Dry mouth - Cardiovascular Cardiovascular: reports: Exertional dyspnea, Decr. exercise tolerance. denies: Edema - Respiratory Respiratory: reports: Cough, Sputum production (yellow), Wheezing, SOB at rest, SOB with exertion - Gastrointestinal Gastrointestinal: reports: Diarrhea (uses loperamide daily), Early satiety, Other (dislikes food at facililty; does order take out at times) - Genitourinary Genitourinary: reports: Frequency - Musculoskeletal Musculoskeletal: reports: Back pain, Muscle aches (LE), Stiffness, Limited range of motion, Muscle weakness, Joint pain (right shoulder pain escalating; improved with cortisone shot by PCP), Assistive devices (uses walker in apartment) - Integumentary Integumentary: reports: Dryness - Neurological Neurological: reports: General weakness, Numbness (left leg), Abnormal gait - Psychiatric Psychiatric: reports: Depression, Anxiety, Other (irritable with pandemic/restrictions) - Hematologic/Lymphatic Hematologic/Lymph: Bruising - All Other Systems All Other Systems: reports: Reviewed and negative Physical Exam - Vital Signs Temperature: 96.5 C Pulse Rate: 73 Respiratory Rate: 18 Blood Pressure: 108/72 - Physical Exam General Appearance: positive: No acute distress, Alert Eyes Bilateral: positive: Normal inspection ENT: positive: No signs of dehydration Neck: positive: Trachea midline, Other (cushingnoid appearance). negative: Lymphadenopathy (R), Lymphadenopathy (L) Cardiovascular: positive: Regular rate & rhythm Respiratory: positive: Diminished throughout. negative: No respiratory distress (respiratory effort with activity noted), Wheezes Abdomen: positive: Soft, Tenderness, Other (rounded) Skin: positive: Pallor, Dryness. negative: Wound Extremities: positive: No pedal edema Neurologic/Psychiatric: positive: Oriented x3, Weakness, Depressed mood/affect, Flat affect Palliative Care - POLST Patient has POLST: Yes POLST Status: DNR, Selective Treatment Pain: Pain unchanged (no change in back), Pain improved (right shoulder) Tiredness/Fatigue: Moderate (4-6) Drowsiness/Sedation: Severe (7-10) (reports sleeping "all the time") Nausea: None Anorexia: Mild (1-3) Dyspnea: Severe (7-10) (min. activity) Depression: Moderate (4-6) Anxiety: Mild (1-3) Feelings of wellbeing/Perceived Quality of Life: Fair, Acceptable, No change Sleep: Sleeps well Performance Status: Patient very much stays in her room, she can ambulate short distances with her walker. She is limited though by her oxygen need, as well as managing her tanks. She does need assistance with bathing and dressing, she does manage in her own room. She can go out with a wheelchair for support. I would put her at a PPS of 50% - Palliative Care Discussion: Patient is just expressing her fatigue with all of the pandemic, the worsening political climate, the isolation. She is hoping for things to be somewhat back to normal, but recognizing this will be an extended time yet. She is very frustrated she is not will spend time with her family, she recognizes she has serious illness and her time is limited. She does have a POLST with [facility] and selective treatments. She would treat reversible conditions, but does not want to be put on a respirator. She is hoping if she were to have pneumonia or be extremely ill, she would go to [facility] in [place] where her meat selector is and would manage her respiratory illness. Results - Lab Results Lab results reviewed: Yes Impression and Recommendations - Palliative Care Impression: This is a fragile 80-year-old woman with severe pulmonary arterial hypertension, advanced COPD, active alcoholism, acute on chronic back pain, new left shoulder pain, rhinitis, and anxiety. Patient continues with high symptom burden, palliative care provide support for symptom management, counseling, as well as anticipatory guidance until transitions to hospice. Recommendations/Counseling Done: 1. Rhinitis. This continues to be persistent. We did change up her antihistamines, she has not been very consistent with her ipratropium bromide nasal spray, but does have high oxygen flow. She has not had any further nosebleeds, will continue to monitor. 2. Pulmonary arterial hypertension. Patient remains quite dyspneic, desats easily with any kind of activity, and has worsening activity tolerance. Patient is sleeping more, at this point in time she wants to continue he will Letaris, though unfortunately she has been out for a week and a half. To transition to hospice she would need to consider transitioning off these medications, at this point in time she still feels her quality of life is tolerable and not intereste d in comfort only goals, but is interested in comfort focused care. 3. Alcoholism. Patient perceives her use of wine as an intervention for her pain control, she is consistently taking 4 glasses a day. She is less ambulatory, has not had any further falls, though she is at risk for this. Currently she has not had any access to outside alcohol, so has been managing better staying within her parameters. 4. Anxiety. This is multifactorial, patient with increased isolation, continue restrictions within the activity, is feeling somewhat depressed by the overall pandemic and political climate. She does have limited access to interaction with her family, and remains in this unfortunate situation. Counseling provided regarding normalizing her current grief and loss regarding this. 5. Chronic pain syndrome. Patient had had some improvement with her injections to her SI joint and hip back pain, have trialed multiple medications without improvement. Patient continues to prefer her wine over opioids, is using topicals and physical therapy with some relief. 6. Left shoulder pain. This is improved with a cortisone shot as well as her range of motion. She is pleased with the results. She has been started on tramadol 50 mg twice daily, will continue to monitor has not made a significant amount of difference as far as her back pain. 7. Advanced care planning. Patient continues on palliative care, intermittent visits for support and follow-up. She does have a POLST in place with DO NOT RESUSCIT[facility], would accept hospitalization for treatment of reversible conditions. She continues to try and avoid ED visits, she bases her decisions based on quality of life issues. Time Spent: 45 minutes with greater than 50% of this done in counseling satiety, symptom management, and anticipatory guidance.
== END 2020-12-12 11:16 | disposition home or self-care (01) ==
LOC: PC 11:15
PROVIDERS: ATTEND Nurse Practitioner Adult Health
DX: Z51.5 Encounter for palliative care (principal); J31.0 Chronic rhinitis; I27.21 Secondary pulmonary arterial hypertension; F10.20 Alcohol dependence, uncomplicated; F41.9 Anxiety disorder, unspecified; M54.5 Low back pain; M53.3 Sacrococcygeal disorders, not elsewhere classified; M25.512 Pain in left shoulder; G89.29 Other chronic pain; J43.2 Centrilobular emphysema; I11.0 Hypertensive heart disease with heart failure; I50.30 Unspecified diastolic (congestive) heart failure; Z87.891 Personal history of nicotine dependence; Z66 Do not resuscitate

== ENCOUNTER 2021-02-09 11:15 | Outpatient (CLI) | payer MEDICARE, OTHER ==
--- NOTE | 2021-02-09 16:25 | CONSULTATION NOTE ---
Palliative Care Follow Up - Referral Referring Provider: Dr. Heriberto Christopher Time of Visit: [id number] Referral setting: Assisted living Referral Reason: Pulm HTN/COPD/Rhinitis/SI pain - Information Sources Records reviewed: Previous records reviewed History/Review of Systems obtained from: Patient Exam limitations: No limitations - History of Present Illness Update Brief HPI Update: This is a 79-year-old woman with severe COPD, progressing pulmonary arterial hypertension, alcoholism, chronic back pain, and worsening rhinitis. She continues to have high symptom burden, she does identify she is having increased shortness of breath, worsening activity tolerance, which is continued to deteriorate over time. She is not had any recent falls, but has been discharged by physical therapy she is hoping to be able to restart. She continues with severe back pain, has trialed multiple medications and topicals, is distressed her orthopedist has retired, but would like to revisit another injection. She has gotten some minor relief from this. She does have worse pain with standing, relieved with sitting or lying. She has been trialed on opioids, gabapentin, pregabalin, continues to perceive her 4 glasses of wine as her best intervention both for her pain and breathlessness. She continues with her rhinitis, she does have a deviated septum on the left from a fall. She has been using her sprays without much relief. We did change up her antihistamine, but still continues with discomfort. She also has some symptoms of chronic sinusitis, with pain over her left eyebrow and below her left orbital bone. She finds it as to her breathlessness as she can get the oxygen "we did not" particularly when she is in any kind of distress. She is also been depressed and disliking the current limitations in the assisted living. She would like to get out and get her hair done toes done and further physician appointments. They have recently opened the dining room, but is found it difficult as well. She is unable to walk any long distances at this point, and is mostly wheelchair bound out of her room, she furniture walks in her room but has to rest frequently because of her COPD/pulmonary hypertension. Past Medical History: Pulmonary hypertension, centrilobular emphysema, end-stage COPD, chronic respiratory failure, pulmonary fibrosis, diastolic CHF, hypertension, chronic pain, HLD, history of iron deficiency anemia, history of thrombocytopenia, GERD, depression, anxiety, osteoarthritis, former smoker 100 pack years, alcoholism currently still drinking Social History - Living Situation Living arrangement: Assisted living Support System: Patient has been a long-term resident at [facility]. Continues to challenge staff with her fluctuating behaviors. She does have 2 sons, one in [place] and one in [facility]. She has not been able spend time with her family for over a year given the Covid pandemic. She is hoping that restrictions will be lifted soon, she has been vaccinated. She feels like a prisoner, and is fatigued Medications/Allergies - Medications Home Medications: Ambulatory Orders Medication Instructions Recorded Confirmed Cholecalciferol (Vitamin D3) 2,000 units PO DAILY 02/04/17 12/13/20 [Vitamin D3] Mometasone/Formoterol [Dulera 100 2 puffs INH BID 02/04/17 12/13/20 Mcg-5 Mcg Inhaler] Escitalopram [Lexapro] 10 mg PO DAILY 02/19/17 12/13/20 Loperamide [Imodium] 2 - 4 mg PO PRN PRN MDD NTE 6 tabs 09/29/17 12/13/20 in 24 hours Acetaminophen [Tylenol] 500 mg PO BID 01/30/18 12/13/20 Ipratropium [place] 2 sprays OMID Q8H 01/30/18 12/13/20 Diclofenac Sodium/Misoprostol 1 tab PO DAILY 09/29/18 12/13/20 [Diclofenac-Misoprost 50-200 Tb] Lovastatin 40 mg PO QPM 09/29/18 12/13/20 Omeprazole 40 mg PO DAILY 09/29/18 12/13/20 Sildenafil Citrate 20 mg PO TID 09/29/18 12/13/20 Spironolactone 25 mg PO DAILY 09/29/18 12/13/20 Tiotropium [place] [Spiriva 2 inh PO DAILY 09/29/18 12/13/20 Respimat] Potassium Chloride [K-Dur] 10 meq PO DAILY MDD with meals 12/10/18 12/13/20 Albuterol Sulfate [Proair 2 puffs PO Q4H PRN 04/03/19 12/13/20 Respiclick] Lidocaine Patch 5% [Lidoderm Patch] 1 patch TOP DAILY PRN MDD 16 04/03/19 12/13/20 Guaifenesin [Mucinex] 600 tab PO DAILY 07/01/19 12/13/20 Multivit-Min/FA/Lycopen/Lutein 1 tab PO DAILY 07/01/19 12/13/20 [Centrum Silver Men Tablet] Ambrisentan [Letairis] 10 mg DAILY 04/04/20 12/13/20 Fluticasone [Flonase] 1 spray BID 04/04/20 12/13/20 Prednisone 10 mg DAILY 04/04/20 12/13/20 traZODone [Desyrel] 100 mg DAILY PM PRN 04/04/20 12/13/20 Diclofenac Sodium [Voltaren 4 mg PO BID MDD hands 08/05/20 12/13/20 Arthritis Pain] Ondansetron [Ondansetron Odt] 4 mg PO Q6HR PRN 08/05/20 12/13/20 Simethicone [Gas Relief] 125 mg PO QID PRN 08/05/20 12/13/20 diphenhydrAMINE [Benadryl] 25 - 50 mg PO DAILY PRN 08/05/20 12/13/20 Fexofenadine HCl 180 mg PO DAILY 10/16/20 12/13/20 Torsemide 20 mg PO DAILY 12/13/20 12/13/20 Triamcinolone 0.1% Cream [Kenalog 1 applic TOP BID PRN 12/13/20 12/13/20 0.1% Cream] traMADol [Ultram] 50 mg PO BID 12/13/20 12/13/20 - Allergies Allergies/Adverse Reactions: Allergies Allergy/AdvReac Type Severity Reaction Status Date / Time cephalexin [From Keflex] Allergy Severe Unknown Verified 12/07/20 11:49 Sulfa (Sulfonamide Allergy Mild Rash Verified 12/07/20 11:49 Antibiotics) Review of Systems - Constitutional Constitutional: reports: Fatigue (remains persistent), Weight stable (120). denies: Fever, Chills - Eyes Eyes: reports: Blurred vision (Patient reports she is having increased difficulty with her vision, she is wondering what to do. She has had cataract surgery. Recommended she return to the accounting machine mechanic, and see if she needs to see further a specialist.), Vision loss, Corrective lenses - Ears, Nose & Throat Ears, Nose & Throat: reports: Nasal congestion, Postnasal drainage (clear), Dry mouth - Cardiovascular Cardiovascular: reports: Exertional dyspnea, Decr. exercise tolerance. denies: Edema - Respiratory Respiratory: reports: Cough, Sputum production (yellow), Wheezing, SOB at rest, SOB with exertion - Gastrointestinal Gastrointestinal: reports: Diarrhea (uses loperamide daily), Early satiety, Other (dislikes food at facililty;) - Genitourinary Genitourinary: reports: Frequency - Musculoskeletal Musculoskeletal: reports: Back pain, Muscle aches (LE), Stiffness, Limited range of motion, Muscle weakness, Joint pain (identifies SI joint area of worsening pain), Assistive devices (uses walker in apartment) - Integumentary Integumentary: reports: Dryness - Neurological Neurological: reports: General weakness, Numbness (left leg), Abnormal gait - Psychiatric Psychiatric: reports: Depression, Anxiety, Other (irritable with pandemic/restrictions) - Hematologic/Lymphatic Hematologic/Lymph: reports: Bruising. denies: Recurrent infections - All Other Systems All Other Systems: reports: Reviewed and negative Physical Exam - Vital Signs Temperature: 97.9 C Pulse Rate: 81 Respiratory Rate: 18 O2 Saturation: 99 (4 liters at rest) Blood Pressure: 114/66 - Physical Exam General Appearance: positive: No acute distress, Alert Eyes Bilateral: positive: Normal inspection ENT: positive: No signs of dehydration Neck: positive: Trachea midline, Other (cushingnoid appearance). negative: Lymphadenopathy (R), Lymphadenopathy (L) Cardiovascular: positive: Regular rate & rhythm Respiratory: positive: Diminished throughout. negative: No respiratory distress (respiratory effort with activity noted), Wheezes Abdomen: positive: Soft, Tenderness, Taut, Other (rounded) Skin: positive: Pallor, Dryness. negative: Wound Extremities: positive: No pedal edema Neurologic/Psychiatric: positive: Oriented x3, Weakness, Depressed mood/affect, Flat affect Palliative Care - POLST Patient has POLST: Yes POLST Status: DNR, [facility] Pain: Pain worsening, Location (left SI joint; left hand) Tiredness/Fatigue: Moderate (4-6) Drowsiness/Sedation: Moderate (4-6) (feels sleeping more) Nausea: None Anorexia: Moderate (4-6) Dyspnea: Severe (7-10) Depression: Moderate (4-6) Anxiety: Mild (1-3) Feelings of wellbeing/Perceived Quality of Life: Fair, Worsening Constipation: No Performance Status: Patient needs assistance with lower extremity dressing, showers. She does need a ride down to dinner via the wheelchair. She can toilet herself, and ambulate short distances but with frequent rest periods and more prolonged recovery times. - Palliative Care Discussion: Patient with multiple complaints, does express appropriate disappointment and reflections on pandemic fatigue. She does see some decline in the context of the seriousness of her illness, she has multiple complaints and requesting support and referrals. We did discuss in the context of this can continue to work on quality of life issues, as long as she feels up to getting out. Patient is quite reflective today, her old table made had since . She has had many friends with health issues and passed recently. Impression and Recommendations - Palliative Care Impression: This is a fragile 89-year-old woman with severe pulmonary arterial hypertension, advanced COPD, active alcoholism, acute on chronic back pain, worsening rhinitis, and multiple complaints regarding chronic back pain and joint pain. Patient continues with high symptom burden, has chosen continued to use alcohol for both pain and anxiety, as well as feels it helps her breathlessness. Palliative care continue provide support for symptom management, counseling, as well as anticipatory guidance until transition to hospice. Recommendations/Counseling Done: 1. . Patient continued to have difficulty with nasal congestion, clear fluid, does appear to have some possible chronic sinusitis. Most likely worsened and irritation from high oxygen flow. Had trialed switch from loratadine to fexofenadine, and increase Flonase as well as encouraged to use her ipratropium bromide nasal spray. She reports she has been consistent without any improvement, and agreement to send her to Dr. Flores/ENT for evaluation and support. 2. Chronic pain syndrome. Patient has had improvement with her injections in the past, has trialed multiple medications without improvement. Patient continues to prefer her wine over opioids, with the addition of topicals with some relief. Her orthopedist has retired Dr. Moreira, but would like a referral up there for another evaluation to see if there is anything else they can provide for her. 3. Pulmonary arterial hypertension. Patient remains quite dyspneic, desats easily with any kind of activity, has noted progressing dyspnea and worsening activity tolerance. Is needing to use the wheelchair, is sleeping more, she does feel currently it is manageable but states her quality of life is deteriorating. Will transition to hospice and patient is ready, she does present with ongoing decline, but does not feel ready yet. 4. Alcoholism. Patient continues to use her wine as intervention for pain control, she feels like it helps with her dyspnea. She is consistently taking her 4 glasses a day spread out. She remains at high risk for falls, she is aware of the risk of this. She was asking for an increase to 6 glasses of wine a day, as it does provide her relief. I told her I would follow-up with her PCP, but most likely this will not be the intervention or approved. 5. Anxiety. This is multifactorial, patient very much wants to feel to do some things that bring her matti and support. She has had limited access and interaction to her family, they are getting their Covid shots. There are significant restrictions for assisted living, they are not going to be lifted soon. Did speak with the nurse concert manager, though to see if could we look at seating chart. 6. Generalized weakness. Patient has not been walking, it is too difficult for her with all of her paraphernalia and motivation. She feels like she has lost some functional status. Requests I revisit physical therapy. I did call and [facility], at this point in time only option would be to pay privately, and that is not available currently. Agreed would revisit in 3 t o 4 weeks to see if situation has changed, will follow up with patient regarding this. 7. Advanced care planning patient continues on palliative care, intermittent visits for support and follow-up. She does have a POLST in place with [facility] but would continue to accept hospitalization at this point. She continues to try and avoid ED visits, she weighs her decisions based on quality of life issue. She continues to be quite isolated and finds this has a huge impact on her quality of life. 60 minutes with greater than 50% of this done in counseling, coordination of care with facility staff, and referrals to specialists. Continue to provide support for pain and symptom management and anticipatory guidance
== END 2021-02-09 11:16 | disposition home or self-care (01) ==
LOC: PC 11:15
PROVIDERS: ATTEND Nurse Practitioner Adult Health
DX: Z51.5 Encounter for palliative care (principal); G89.4 Chronic pain syndrome; M54.9 Dorsalgia, unspecified; I27.21 Secondary pulmonary arterial hypertension; F10.20 Alcohol dependence, uncomplicated; F41.9 Anxiety disorder, unspecified; R53.1 Weakness; J43.2 Centrilobular emphysema; J96.10 Chronic respiratory failure, unspecified whether with hypoxia or hypercapnia; I11.0 Hypertensive heart disease with heart failure; I50.30 Unspecified diastolic (congestive) heart failure; J84.10 Pulmonary fibrosis, unspecified; Z87.891 Personal history of nicotine dependence; Z66 Do not resuscitate

== ENCOUNTER 2021-04-29 18:46 | Outpatient (CLI) | payer MEDICARE, OTHER | END 2021-04-29 18:47 | disposition critical access hospital (66) | LOC: EMS 18:46 | DX: S81.811A Laceration without foreign body, right lower leg, initial encounter (principal); X58.XXXA Exposure to other specified factors, initial encounter; Y92.199 Unspecified place in other specified residential institution as the place of occurrence of the external cause | CPT/HCPCS: A0425; A0429 ==

== ENCOUNTER 2021-04-29 19:04 | Emergency (ER) | payer MEDICARE, OTHER ==
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
[2021-04-29] MEDS ORDERED: BACITRACIN ZINC OINT 1 PACKET TOP STA (21:32)
[2021-04-29 23:13] VITALS: BP 120/56
== END 2021-04-29 23:11 | disposition home or self-care (01) ==
LOC: EDUNIT# → ED 19:04
DX: S81.811A Laceration without foreign body, right lower leg, initial encounter (principal); W22.8XXA Striking against or struck by other objects, initial encounter
CPT/HCPCS: 99282

== ENCOUNTER 2021-05-03 09:45 | Outpatient (CLI) | payer MEDICARE, OTHER ==
--- NOTE | 2021-05-03 15:05 | CONSULTATION NOTE ---
Palliative Care Follow Up - Referral Referring Provider: Dr. Christopher Time of Visit: [id number] Referral setting: Adult Family Home Referral Reason: Right Sanchez Laceration/Pulm HTN/COPD - Information Sources Records reviewed: Previous records reviewed History/Review of Systems obtained from: Patient Exam limitations: No limitations - History of Present Illness Update Brief HPI Update: This is a 80-year-old woman with severe COPD, progressing pulmonary hypertension, alcoholism, chronic back pain, and rhinitis. She unfortunately hit her leg on the outer part of her wheelchair, and sustained a fairly significant laceration to her right lower extremity, she has very thin skin from long-term prednisone use, easily bleeds, and was taken to the ED despite her objections. They were unable to manage her bleeding, plus it is a fairly significant tear. They had placed Mepilex, and dressing over, skin flap is in place though flap itself is dark purple, currently is moist, not bright red or any signs or symptoms of infection. There is some old bloody drainage on the dressing, but is not freshly bleeding at this point. It does throb for her, but is not hot to touch. She has significant bruising around it, area was cleansed, Mepilex replaced and dressing put in place. Patient does continue with rhinitis, she has a deviated septum from another fall, she did see the ENT Dr. Flores and was unable to offer her anything that did not include surgery, so continues to have discomfort related to this. She finds as to her breathlessness that she is she feels sometimes she cannot get oxygen. She continues with chronic pain, her left shoulder, she did receive a steroid shot for bursitis, she reports she got some relief for about a week, it is worse again. She also has lower back pain, for which she actually uses wine about 4 glasses spread to the day, it does appear she is already had some this morning w ith slightly slurred speech, and is upset at her treatment at the ED with particularly her cab ride home. She feels like it was unsafe particularly given that she is on oxygen and is very distressed by this. Patient reports her breathlessness continues to worsen, she is much more limited, she is sleeping more. She reports her cough is dry, no further exacerbation of her abdominal symptoms or discomfort, she does spend most the time in her room though denies depression does describe some persistent depressive feelings. Past Medical History: Pulmonary hypertension, centrilobular emphysema, end-stage COPD, chronic respiratory failure, pulmonary fibrosis, diastolic CHF, hypertension, chronic pain, HLD, history of iron deficiency anemia, history of thrombocytopenia, GERD, depression, anxiety, osteoarthritis, former smoker 100 pack years, alcoholism currently still drinking Social History - Living Situation Living arrangement: Assisted living Support System: Patient has been a long-term resident at [facility]. She continues to challenge staff with her fluctuating behaviors, and has found the pandemic quite limiting, though she has experienced functional decline most likely less able to get out. She does have 2 sons, one in [place] and one in [facility], they are both going to be home for June she is looking forward to seeing them. Medications/Allergies - Medications Home Medications: Ambulatory Orders Medication Instructions Recorded Confirmed Cholecalciferol (Vitamin D3) 2,000 units PO DAILY 02/04/17 05/03/21 [Vitamin D3] Mometasone/Formoterol [Dulera 100 2 puffs INH BID 02/04/17 05/03/21 Mcg-5 Mcg Inhaler] Escitalopram [Lexapro] 10 mg PO DAILY 02/19/17 05/03/21 Loperamide [Imodium] 2 - 4 mg PO PRN PRN MDD NTE 6 tabs 09/29/17 05/03/21 in 24 hours Acetaminophen [Tylenol] 500 mg PO BID 01/30/18 05/03/21 Ipratropium [place] 2 sprays OMID Q8H 01/30/18 05/03/21 Diclofenac Sodium/Misoprostol 1 tab PO DAILY 09/29/18 05/03/21 [Diclofenac-Misoprost 50-200 Tb] Lovastatin 40 mg PO QPM 09/29/18 05/03/21 Omeprazole 40 mg PO DAILY 09/29/18 05/03/21 Sildenafil Citrate 20 mg PO TID 09/29/18 05/03/21 Spironolactone 25 mg PO DAILY 09/29/18 05/03/21 Tiotropium [place] [Spiriva 2 inh PO DAILY 09/29/18 05/03/21 Respimat] Potassium Chloride [K-Dur] 10 meq PO DAILY MDD with meals 12/10/18 05/03/21 Albuterol Sulfate [Proair 2 puffs PO Q4H PRN 04/03/19 05/03/21 Respiclick] Lidocaine Patch 5% [Lidoderm Patch] 1 patch TOP DAILY PRN MDD 16 04/03/19 05/03/21 Guaifenesin [Mucinex] 600 tab PO DAILY 07/01/19 05/03/21 Multivit-Min/FA/Lycopen/Lutein 1 tab PO DAILY 07/01/19 05/03/21 [Centrum Silver Men Tablet] Ambrisentan [Letairis] 10 mg DAILY 04/04/20 05/03/21 Fluticasone [Flonase] 1 spray BID 04/04/20 05/03/21 predniSONE [Prednisone] 10 mg DAILY 04/04/20 05/03/21 traZODone [Desyrel] 100 mg DAILY PM PRN 04/04/20 05/03/21 Diclofenac Sodium [Voltaren 4 mg PO BID MDD hands 08/05/20 05/03/21 Arthritis Pain] Ondansetron [Ondansetron Odt] 4 mg PO Q6HR PRN 08/05/20 05/03/21 Simethicone [Gas Relief] 125 mg PO QID PRN 08/05/20 05/03/21 diphenhydrAMINE [Benadryl] 25 - 50 mg PO DAILY PRN 08/05/20 05/03/21 Fexofenadine HCl 180 mg PO DAILY 10/16/20 05/03/21 Torsemide 20 mg PO DAILY 12/13/20 05/03/21 Triamcinolone 0.1% Cream [Kenalog 1 applic TOP BID PRN 12/13/20 05/03/21 0.1% Cream] traMADol [Ultram] 50 mg PO BID 12/13/20 05/03/21 - Allergies Allergies/Adverse Reactions: Allergies Allergy/AdvReac Type Severity Reaction Status Date / Time cephalexin [From Keflex] Allergy Severe Unknown Verified 04/29/21 19:11 Sulfa (Sulfonamide Allergy Mild Rash Verified 04/29/21 19:11 Antibiotics) Review of Systems - Constitutional Constitutional: reports: Fatigue (more persistent), Weakness, Poor appetite, Weight loss (115 patient attritubes to food; not going to the dining room). denies: Fever, Chills - Eyes Eyes: reports: Blurred vision (Patient reports she is having increased difficulty with her vision has not follow up with opthalmology), Vision loss, Corrective lenses - Ears, Nose & Throat Ears, Nose & Throat: reports: Nasal congestion, Postnasal drainage (clear), Dry mouth - Cardiovascular Cardiovascular: reports: Exertional dyspnea, Decr. exercise tolerance. denies: Edema - Respiratory Respiratory: reports: Cough, Sputum production (clear), Wheezing, SOB at rest, SOB with exertion - Gastrointestinal Gastrointestinal: reports: Reflux/heartburn (intermittent), Early satiety, Other (dislikes food at facililty;). denies: Diarrhea (uses loperamide daily) - Genitourinary Genitourinary: reports: Frequency - Musculoskeletal Musculoskeletal: reports: Back pain, Muscle aches (LE), Stiffness, Limited range of motion, Muscle weakness, Joint pain (identifies SI joint area of worsening pain), Assistive devices (uses walker in apartment; wheelchair to go to dining room) - Integumentary Integumentary: reports: Dryness - Neurological Neurological: reports: General weakness, Numbness (left leg), Abnormal gait - Psychiatric Psychiatric: reports: Depression, Anxiety, Other (irritable with pandemic/restrictions) - Hematologic/Lymphatic Hematologic/Lymph: reports: Bruising. denies: Recurrent infections - All Other Systems All Other Systems: reports: Reviewed and negative Physical Exam - Vital Signs Temperature: 97.9 C Pulse Rate: 87 Respiratory Rate: 20 O2 Saturation: 97 (with oxygen 6 l) Blood Pressure: 108/72 - Physical Exam General Appearance: positive: Alert, Mild distress (with pain in RLE) Eyes Bilateral: positive: Normal inspection ENT: positive: No signs of dehydration Neck: positive: Trachea midline, Other (cushingnoid appearance). negative: Lymphadenopathy (R), Lymphadenopathy (L) Cardiovascular: positive: Regular rate & rhythm Respiratory: positive: Diminished throughout. negative: No respiratory distress (respiratory effort with activity noted), Wheezes Abdomen: positive: Soft, Other (rounded) Skin: positive: Pallor, Dryness, Wound (see HPI 8 cm x < 1 cm length of sanchez; br uising and some old bloody drainage) Extremities: positive: No pedal edema Neurologic/Psychiatric: positive: Oriented x3, Weakness, Depressed mood/affect, Flat affect Palliative Care - POLST Patient has POLST: Yes POLST Status: DNR, Selective Treatment Pain: Pain unchanged (back and left shoulder), Pain worsening (acute pain RLE) Feelings of wellbeing/Perceived Quality of Life: Fair, Acceptable, Worsening Performance Status: Patient continues with slow decline in functional status. She only goes down to the dining room a few times a week, she is less ambulatory and spends most the time in her room. She does need assistance with bathing, she tends to furniture walk around her room but uses walker for longer distances. She is sleeping more, spending more time in bed as this is more comfortable on her back. - Palliative Care Discussion: Patient is quite irritable, has her self worked up around her ED visit, very distressed about her taxicab ride and feeling unsafe. She does perceive herself as declining though nothing acute, staff check on her frequently. A good family friend has , her son from [facility] is coming home for the , she is looking forward to being together with her family this is just mid June. She continues to express feelings of grief and loss with her continued decline and loss of independence. Impression and Recommendations - Palliative Care Impression: This is a fragile 80-year-old woman with pulmonary hypertension, advanced COPD, active alcoholism, chronic back pain, and most recently now sustained an acute right lower extremity laceration. Patient is long-term been on prednisone, her skin bruises easily and is very fragile. Patient at high risk for worsening or deterioration of wound. It is a taxing considerable effort for patient to get out, palliative care providing support and evaluation after ED visit. Palliative care continue provide support for symptom management, counseling, as well as anticipatory guidance until transition to hospice. Recommendations/Counseling Done: 1. Right lower extremity laceration. Wound cleansed with normal saline, replace Mepilex and wrapped outer dressing. This is done in coordination with facility nurse, she will change the outer wrap and monitor for signs and symptoms of infection over the next few days. Arrangements made for follow-up next week, if wound deteriorates, will order home health for wound care, if continues to heal will follow with facility support. 2. Rhinitis. Patient continues to complain of nasal congestion she did see ENT with no options, continues with spray. 3. Chronic pain syndrome. Patient continues to prefer her wine over opioids, does use some addition of topicals with some relief. Is somewhat resigned to her current situation, though continues to have functional decline. 4. Pulmonary arterial hypertension. Patient dominic quite dyspneic, desats with any kind of activity, and has noted progressive dyspnea and worsening activity tolerance. She is sleeping more, does use a wheelchair when she leaves the room but finds these outings more difficult, she does feel currently her quality of life is manageable but is feeling her decline. Will transition to hospice when patient is ready, she is continued to be somewhat resistant to this. 5. Alcoholism. Patient continues to use her wine is intervention for pain control, she consistently takes her 4 glasses a day spread out, she continues to push limits around this. Continue to monitor though does add to her risk of falls. Patient with very little insight into this. 6. Generalized weakness. Patient is not been walking, she does report continued functional decline. She is ambulatory in her apartment, but is becoming more wheelchair dependent. 7. Advanced care planning. Patient continues on palliative care with intermittent visits for support. She does have a POLST with [facility] and would continue except hospitalization at this point, though is very resistant to ED visits or follow-up. She continues to be quite isolated but still perceives her quality of life is acceptable. 60 minutes with greater than 50% of this done in coordination of care, provision of wound care, follow-up with facility, evaluation of symptom management and counseling for depressive symptoms.
== END 2021-05-03 09:46 | disposition home or self-care (01) ==
LOC: PC 09:45
PROVIDERS: ATTEND Nurse Practitioner Adult Health
DX: Z51.5 Encounter for palliative care (principal); S81.811D Laceration without foreign body, right lower leg, subsequent encounter; W22.8XXD Striking against or struck by other objects, subsequent encounter; R09.81 Nasal congestion; G89.4 Chronic pain syndrome; I27.20 Pulmonary hypertension, unspecified; F10.20 Alcohol dependence, uncomplicated; J43.2 Centrilobular emphysema; R53.1 Weakness; Z87.891 Personal history of nicotine dependence; Z66 Do not resuscitate
CPT/HCPCS: 99350

== ENCOUNTER 2021-05-08 12:30 | Outpatient (CLI) | payer MEDICARE, OTHER ==
--- NOTE | 2021-05-08 14:24 | CONSULTATION NOTE ---
Palliative Care Follow Up - Referral Referring Provider: Dr. Christopher Time of Visit: [id number] Referral setting: Assisted living Referral Reason: RLE wound/infection - Information Sources Records reviewed: RN notes reviewed, Previous records reviewed History/Review of Systems obtained from: Patient, Nursing Exam limitations: No limitations - History of Present Illness Update Brief HPI Update: Please see HPI for more extensive visit 05/03. This is a 80-year-old woman with severe COPD, progressing pulmonary hyperten jonathan, alcoholism, chronic back pain and rhinitis. She has sustained a fairly significant laceration to her right lower extremity, she has very thin skin from long-term prednisone use, easily bleeds, and was seen in the ED. Was seen on 05 03 and follow-up, with replace Mepilex and applied outer dressing. Patient is quite upset regarding continued throbbing pain, felt like the gauze was causing more discomfort, and distressed had not changed sooner. Though unable to tell if this was her choice, or facility unable to do. Was contacted by facility nursing today, to come evaluate. There was some mild drainage, Mepilex still in place, proximal and with some gap in the skin flap, filled in with yellow eschar and some dried brown scabbing. Area is quite diffusely purple, as the skin tear is on the outer flapping into medial. Medial side of the leg is slightly warm but not bright pink. Given the severity of her laceration, frailty of her status, and increasing pain will go ahead and prescribe doxycycline 100 mg twice daily. Did leave Mepilex in place, applied outer Telfa, with Tubigrip to secure and gentle paper tape. Past Medical History: Pulmonary hypertension, centrilobular emphysema, end-stage COPD, chronic respiratory failure, pulmonary fibrosis, diastolic CHF, hypertension, chronic pain, HLD, history of iron deficiency anemia, history of thrombocytopenia, GERD, depression, anxiety, osteoarthritis, former smoker 100 pack years, alcoholism currently still drinking Social History - Living Situation Living arrangement: Assisted living Support System: Patient has been a long-term resident at [facility], she continues to challenge staff with her fluctuating behaviors. She has been quite irritable through this whole process, feeling like not getting straight stories from any other staff as far as what is possible or not possible. She does have 2 sons, one in [place] and one in [facility], they are both can be home for [place] for a few family friends , she is looking forward to seeing them. Medications/Allergies - Medications Home Medications: Ambulatory Orders Medication Instructions Recorded Confirmed Cholecalciferol (Vitamin D3) 2,000 units PO DAILY 02/04/17 05/08/21 [Vitamin D3] Mometasone/Formoterol [Dulera 100 2 puffs INH BID 02/04/17 05/08/21 Mcg-5 Mcg Inhaler] Escitalopram [Lexapro] 10 mg PO DAILY 02/19/17 05/08/21 Loperamide [Imodium] 2 - 4 mg PO PRN PRN MDD NTE 6 tabs 09/29/17 05/08/21 in 24 hours Acetaminophen [Tylenol] 1,000 mg PO TID MDD 7 days 01/30/18 05/08/21 Ipratropium [place] 2 sprays OMID Q8H 01/30/18 05/08/21 Diclofenac Sodium/Misoprostol 1 tab PO DAILY 09/29/18 05/08/21 [Diclofenac-Misoprost 50-200 Tb] Lovastatin 40 mg PO QPM 09/29/18 05/08/21 Omeprazole 40 mg PO DAILY 09/29/18 05/08/21 Sildenafil Citrate 20 mg PO TID 09/29/18 05/08/21 Spironolactone 25 mg PO DAILY 09/29/18 05/08/21 Tiotropium [place] [Spiriva 2 inh PO DAILY 09/29/18 05/08/21 Respimat] Potassium Chloride [K-Dur] 10 meq PO DAILY MDD with meals 12/10/18 05/08/21 Albuterol Sulfate [Proair 2 puffs PO Q4H PRN 04/03/19 05/08/21 Respiclick] Lidocaine Patch 5% [Lidoderm Patch] 1 patch TOP DAILY PRN MDD 16 04/03/19 05/08/21 Guaifenesin [Mucinex] 600 tab PO DAILY 07/01/19 05/08/21 Multivit-Min/FA/Lycopen/Lutein 1 tab PO DAILY 07/01/19 05/08/21 [Centrum Silver Men Tablet] Ambrisentan [Letairis] 10 mg DAILY 04/04/20 05/08/21 Fluticasone [Flonase] 1 spray BID 04/04/20 05/08/21 predniSONE [Prednisone] 10 mg DAILY 04/04/20 05/08/21 traZODone [Desyrel] 100 mg DAILY PM PRN 04/04/20 05/08/21 Diclofenac Sodium [Voltaren 4 mg PO BID MDD hands 08/05/20 05/08/21 Arthritis Pain] Ondansetron [Ondansetron Odt] 4 mg PO Q6HR PRN 08/05/20 05/08/21 Simethicone [Gas Relief] 125 mg PO QID PRN 08/05/20 05/08/21 diphenhydrAMINE [Benadryl] 25 - 50 mg PO DAILY PRN 08/05/20 05/08/21 Fexofenadine HCl 180 mg PO DAILY 10/16/20 05/08/21 Torsemide 20 mg PO DAILY 12/13/20 05/08/21 Triamcinolone 0.1% Cream [Kenalog 1 applic TOP BID PRN 12/13/20 05/08/21 0.1% Cream] traMADol [Ultram] 50 mg PO BID 12/13/20 05/08/21 Doxycycline Hyclate [Vibramycin] 100 mg PO BID MDD 5 days 05/08/21 05/08/21 - Allergies Allergies/Adverse Reactions: Allergies Allergy/AdvReac Type Severity Reaction Status Date / Time cephalexin [From Keflex] Allergy Severe Unknown Verified 04/29/21 19:11 Sulfa (Sulfonamide Allergy Mild Rash Verified 04/29/21 19:11 Antibiotics) Review of Systems - Constitutional Constitutional: reports: Fatigue (more persistent), Weakness, Poor appetite, Weight loss (115 patient attritubes to food; not going to the dining room). denies: Fever, Chills - Eyes Eyes: reports: Blurred vision (Patient reports she is having increased difficulty with her vision has not follow up with opthalmology), Vision loss, Corrective lenses - Ears, Nose & Throat Ears, Nose & Throat: reports: Nasal congestion, Postnasal drainage (clear), Dry mouth - Cardiovascular Cardiovascular: reports: Exertional dyspnea, Decr. exercise tolerance. denies: Edema - Respiratory Respiratory: reports: Cough, Sputum production (clear), Wheezing, SOB at rest, SOB with exertion - Gastrointestinal Gastrointestinal: reports: Reflux/heartburn (intermittent), Early satiety, Other (dislikes food at facililty;). denies: Diarrhea (uses loperamide daily) - Genitourinary Genitourinary: reports: Frequency - Musculoskeletal Musculoskeletal: reports: Back pain, Muscle aches (LE), Stiffness, Limited range of motion, Muscle weakness, Joint pain (identifies SI joint area of worsening pain), Assistive devices (uses walker in apartment; wheelchair to go to dining room) - Integumentary Integumentary: reports: Dryness - Neurological Neurological: reports: General weakness, Numbness (left leg), Abnormal gait - Psychiatric Psychiatric: reports: Depression, Anxiety, Other (irritable with pa ndemic/restrictions) - Hematologic/Lymphatic Hematologic/Lymph: reports: Bruising - All Other Systems All Other Systems: reports: Reviewed and negative Physical Exam - Vital Signs Temperature: 97.2 C Pulse Rate: 72 Respiratory Rate: 18 O2 Saturation: 100 (on 6 liters) Blood Pressure: 128/68 - Physical Exam General Appearance: positive: Alert, Mild distress (with pain in RLE) Eyes Bilateral: positive: Normal inspection ENT: positive: No signs of dehydration Neck: positive: Trachea midline, Other (cushingnoid appearance). negative: Lymphadenopathy (R), Lymphadenopathy (L) Cardiovascular: positive: Regular rate & rhythm Respiratory: positive: Diminished throughout. negative: No respiratory distress (respiratory effort with activity noted), Wheezes Abdomen: positive: Soft, Other (rounded) Skin: positive: Pallor, Dryness, Wound (see HPI 8 cm x < 1 cm length of sanchez; bruising and some old bloody drainage) Extremities: positive: No pedal edema Neurologic/Psychiatric: positive: Oriented x3, Weakness, Depressed mood/affect, Flat affect Palliative Care - POLST Patient has POLST: Yes POLST Status: DNR, Selective Treatment Pain: Pain worsening, Location (RLE; unfortunately was not getting extra APAP over weekend; throbbing pain) Tiredness/Fatigue: Moderate (4-6) Drowsiness/Sedation: Moderate (4-6) Performance Status: Patient has been mostly bedbound as she has stayed in bed with her foot elevated, this does help with the pain relief. She is able to ambulate to the bathroom independently, but does need assistance for bathing. She is taking most of her meals in her room. - Palliative Care Discussion: Patient is quite frustrated overall with the series of events, her discomfort, and multiple staff interactions. This would be fairly consistent with her usual frustrations, but has been quite uncomfortable. Impression and Recommendations - Palliative Care Impression: This is a fragile 80-year-old woman with pulmonary hypertension, advanced COPD, active alcoholism, chronic pain and now presents with a right lower extremity laceration with symptoms of infection. Patient has long been on prednisone, her skin bruises easily is very fragile, she remains at high risk for further deterioration of the wound. Palliative care providing support for symptom management, counseling, as well as anticipatory guidance until transition to hospice. It is a taxing considerable effort for the patient to get out, palliative care providing support and evaluation of wound after ED visit Recommendations/Counseling Done: 1. Right lower extremity laceration. Mepilex still in place, does have some drying at the proximal end with some yellow eschar and scabbing. Concern regarding deterioration of wound, mild redness medial to the wound, and warmth with worsening discomfort. Wound is quite extensive, high risk for poor healing, does have a extensive bruising in area and now pooling of blood in her foot. She has been encouraged to elevate her leg, unfortunate this means more time in bed. We will go ahead and order doxycycline 100 mg twice daily for 5 days. Instructions for nursing staff to change outer Telfa Saturday and Saturday, will replace Mepilex and dressing next Saturday. 2. Acute on chronic pain. Patient does have throbbing discomfort regarding this, unfortunately did not get started on [id number] acetaminophen. We will go ahead and start this for 1 week, patient is somewhat suspect this is not going to help, patient continues to drink so is not a candidate for opioids and in conversation she does not want opioids anyway. She is quite dismissive that need things going to be of help. 45 minutes with greater than 50% of this done in counseling and coordination of care with facility staff for care of patient's wound, reviewed signs and symptoms of further deterioration infection with instruction to seek out ED evaluation if worsens or systemic signs of infection.
== END 2021-05-08 12:31 | disposition home or self-care (01) ==
LOC: PC 12:30
PROVIDERS: ATTEND Nurse Practitioner Adult Health
DX: Z51.5 Encounter for palliative care (principal); S81.811D Laceration without foreign body, right lower leg, subsequent encounter; X58.XXXD Exposure to other specified factors, subsequent encounter; F10.20 Alcohol dependence, uncomplicated; Z66 Do not resuscitate

== ENCOUNTER 2021-05-15 09:30 | Outpatient (CLI) | payer MEDICARE, OTHER ==
--- NOTE | 2021-05-15 11:52 | CONSULTATION NOTE ---
Palliative Care Follow Up - Referral Referring Provider: Dr. Christopher Time of Visit: [id number] Referral setting: Assisted living - Information Sources Records reviewed: Previous records reviewed History/Review of Systems obtained from: Patient, Nursing (Simin) Exam limitations: No limitations - History of Present Illness Update Brief HPI Update: This is a 80-year-old woman with severe COPD, progressive pulmonary hypertension, alcoholism, chronic back pain, and rhinitis. She sustained a fairly significant laceration to her right lower extremity, has very thin skin from long-term prednisone use, has Mepilex dressing on, nursing replace it on Saturday. She continues complain of throbbing, she did finish her 5 days of doxycycline, the medial area that was reddened and inflamed, has faded to a light pink. She still has about 4 cm area where edges are not approximated, and pulled back about 1 cm area with yellow eschar. Is draining serous to serosanguineous fluid but only small amount on Telfa pad. Wound cleansed, examined, did leave current Mepilex in place, and applied outer Telfa with Tubigrip to secure and gentle paper tape. Patient is also unhappy with her cushingoid appearance, we have tried multiple times to titrate her off her prednisone, given her skin issues and concerns, will trial a very slow taper again. Past Medical History: Pulmonary hypertension, centrilobular emphysema, end-stage COPD, chronic respiratory failure, pulmonary fibrosis, diastolic CHF, hypertension, chronic pain, hyperlipidemia, history of iron deficiency anemia, history of thrombocytopenia, GERD, depression, anxiety, osteoarthritis, former smoker 100 pack years, alcoholism currently still drinking 4 glasses wine/day Social History - Living Situation Living arrangement: Assisted living Support System: Patient lives at [facility], has lived there several years, finds it quite difficult with multiple staff changes, is easily irritated. She does have 2 sons, one in [place] and one in [facility], she has not been in contact with them recently. She is feeling quite fatigued and is spending much more time in bed. Medications/Allergies - Medications Home Medications: Ambulatory Orders Medication Instructions Recorded Confirmed Cholecalciferol (Vitamin D3) 2,000 units PO DAILY 02/04/17 05/08/21 [Vitamin D3] Mometasone/Formoterol [Dulera 100 2 puffs INH BID 02/04/17 05/08/21 Mcg-5 Mcg Inhaler] Escitalopram [Lexapro] 10 mg PO DAILY 02/19/17 05/08/21 Loperamide [Imodium] 2 - 4 mg PO PRN PRN MDD NTE 6 tabs 09/29/17 05/08/21 in 24 hours Acetaminophen [Tylenol] 1,000 mg PO TID MDD 7 days 01/30/18 05/08/21 Ipratropium [place] 2 sprays OMID Q8H 01/30/18 05/08/21 Diclofenac Sodium/Misoprostol 1 tab PO DAILY 09/29/18 05/08/21 [Diclofenac-Misoprost 50-200 Tb] Lovastatin 40 mg PO QPM 09/29/18 05/08/21 Omeprazole 40 mg PO DAILY 09/29/18 05/08/21 Sildenafil Citrate 20 mg PO TID 09/29/18 05/08/21 Spironolactone 25 mg PO DAILY 09/29/18 05/08/21 Tiotropium [place] [Spiriva 2 inh PO DAILY 09/29/18 05/08/21 Respimat] Potassium Chloride [K-Dur] 10 meq PO DAILY MDD with meals 12/10/18 05/08/21 Albuterol Sulfate [Proair 2 puffs PO Q4H PRN 04/03/19 05/08/21 Respiclick] Lidocaine Patch 5% [Lidoderm Patch] 1 patch TOP DAILY PRN MDD 16 04/03/19 05/08/21 Guaifenesin [Mucinex] 600 tab PO DAILY 07/01/19 05/08/21 Multivit-Min/FA/Lycopen/Lutein 1 tab PO DAILY 07/01/19 05/08/21 [Centrum Silver Men Tablet] Ambrisentan [Letairis] 10 mg DAILY 04/04/20 05/08/21 Fluticasone [Flonase] 1 spray BID 04/04/20 05/08/21 predniSONE [Prednisone] 10 mg DAILY 04/04/20 05/08/21 traZODone [Desyrel] 100 mg DAILY PM PRN 04/04/20 05/08/21 Diclofenac Sodium [Voltaren 4 mg PO BID MDD hands 08/05/20 05/08/21 Arthritis Pain] Ondansetron [Ondansetron Odt] 4 mg PO Q6HR PRN 08/05/20 05/08/21 Simethicone [Gas Relief] 125 mg PO QID PRN 08/05/20 05/08/21 diphenhydrAMINE [Benadryl] 25 - 50 mg PO DAILY PRN 08/05/20 05/08/21 Fexofenadine HCl 180 mg PO DAILY 10/16/20 05/08/21 Torsemide 20 mg PO DAILY 12/13/20 05/08/21 Triamcinolone 0.1% Cream [Kenalog 1 applic TOP BID PRN 12/13/20 05/08/21 0.1% Cream] traMADol [Ultram] 50 mg PO BID 12/13/20 05/08/21 Doxycycline Hyclate [Vibramycin] 100 mg PO BID MDD 5 days 05/08/21 05/08/21 - Allergies Allergies/Adverse Reactions: Allergies Allergy/AdvReac Type Severity Reaction Status Date / Time cephalexin [From Keflex] Allergy Severe Unknown Verified 04/29/21 19:11 Sulfa (Sulfonamide Allergy Mild Rash Verified 04/29/21 19:11 Antibiotics) Review of Systems - Constitutional Constitutional: reports: Fatigue (worsening), Weakness, Poor appetite, Weight stable (117). denies: Fever, Chills - Eyes Eyes: reports: Blurred vision (Patient reports she is having increased difficulty with her vision has not follow up with opthalmology), Vision loss, Corrective lenses - Ears, Nose & Throat Ears, Nose & Throat: reports: Nasal congestion, Postnasal drainage (clear), Dry mouth, Other (dry eyes: using eye drops) - Cardiovascular Cardiovascular: reports: Exertional dyspnea, Decr. exercise tolerance. denies: Edema - Respiratory Respiratory: reports: Cough, Sputum production (clear), Wheezing, SOB at rest, SOB with exertion - Gastrointestinal Gastrointestinal: reports: Reflux/heartburn (intermittent), Early satiety, Other (dislikes food at facililty;). denies: Diarrhea (uses loperamide daily) - Genitourinary Genitourinary: reports: Frequency - Musculoskeletal Musculoskeletal: reports: Back pain, Muscle aches (LE), Stiffness, Limited range of motion, Muscle weakness, Joint pain (identifies SI joint area of worsening pain), Assistive devices (uses walker in apartment; wheelchair to go to dining room) - Integumentary Integumentary: reports: Dryness - Neurological Neurological: reports: General weakness, Numbness (left leg), Abnormal gait - Psychiatric Psychiatric: reports: Depression, Anxiety, Other (irritable with pandemic/restrictions) - Hematologic/Lymphatic Hematologic/Lymph: reports: Bruising (new bruise on left sanchez;) - All Other Systems All Other Systems: reports: Reviewed and negative Physical Exam - Vital Signs Temperature: 97.3 C Pulse Rate: 92 Respiratory Rate: 18 O2 Saturation: 96 (on 6 liters) Blood Pressure: 102/62 - Physical Exam General Appearance: positive: Alert, Mild distress (with pain in RLE) Eyes Bilateral: positive: Normal inspection ENT: positive: No signs of dehydration Neck: positive: Trachea midline, Other (cushingnoid appearance). negative: Lymphadenopathy (R), Lymphadenopathy (L) Cardiovascular: positive: Regular rate & rhythm Respiratory: positive: Diminished throughout. negative: No respiratory distress (respiratory effort with activity noted), Wheezes Abdomen: positive: Soft, Other (rounded) Skin: positive: Pallor, Dryness, Wound (see HPI 8 cm x < 1 cm length of sanchez; bruising and some old bloody drainage) Extremities: positive: No pedal edema, Other (right foot with fading purple related to blood pooling from hematoma) Neurologic/Psychiatric: positive: Oriented x3, Weakness, Depressed mood/affect, Flat affect Palliative Care - POLST Patient has POLST: Yes POLST Status: DNR, Selective Treatment Pain: Pain unchanged, Location (RLE throbs; in bed trying to keep elevated; relieves pain somewhat) Tiredness/Fatigue: Moderate (4-6) Drowsiness/Sedation: Moderate (4-6) Nausea: None Anorexia: Mild (1-3) Dyspnea: Severe (7-10) Depression: Mild (1-3) Anxiety: Mild (1-3) Feelings of wellbeing/Perceived Quality of Life: Fair, Worsening Sleep: Variable sleep pattern Constipation: No Performance Status: Patient spending more time in bed, keeping her foot elevated. She is sleeping more. She does need assistance for bathing, as well as dressing. Currently she is not going down to dining room - Palliative Care Discussion: Patient continues impatient with the process, patient will be slow to heal, high risk for sequela of further deterioration of wound. Does have low-grade throbbing pain, nothing seems to help at this point, patient continues to choose to drink her wine, is not a candidate for further opioid therapy. Impression and Recommendations - Palliative Care Impression: This is a fragile 80-year-old woman with pulmonary hypertension, advanced COPD, active alcoholism, chronic pain, and now with right lower extremity laceration currently being managed with dressing changes and antibiotics. Patient is long- term been on prednisone, she dominic at high risk for further deterioration with wound. Palliative care providing support for symptom management as well as is anticipatory guidance until transition to hospice. Recommendations/Counseling Done: 1. Right lower extremity laceration. Mepilex replaced on Saturday, did receive 5 days of doxycycline, with some improvement. Given patient's skin remains fragile, concern for continued drainage, no active signs or symptoms of infection, will extend doxycycline 100 mg twice daily as had responded previously. Nursing to change outer Telfa Saturday, and replace Mepilex if indicated. Dressing change and wound evaluation completed. 2. Long-term steroid use. Patient has been trialed on titration prior off of prednisone, and has usually not tolerated this. She would like to try again then. We discussed slow taper, will start with 9 mg for 2 to 3 weeks and taper accordingly. 30 minutes with greater than 50% of this done in counseling regarding wound care and coordination of care with facility staff, reviewed signs and symptoms of further deterioration or infection to seek out further ED evaluation.
== END 2021-05-15 09:31 | disposition home or self-care (01) ==
LOC: PC 09:30
PROVIDERS: ATTEND Nurse Practitioner Adult Health
DX: Z51.5 Encounter for palliative care (principal); S81.811D Laceration without foreign body, right lower leg, subsequent encounter; Z79.52 Long term (current) use of systemic steroids; I27.20 Pulmonary hypertension, unspecified; F10.20 Alcohol dependence, uncomplicated; J43.2 Centrilobular emphysema; Z87.891 Personal history of nicotine dependence; J96.10 Chronic respiratory failure, unspecified whether with hypoxia or hypercapnia; Z66 Do not resuscitate

== ENCOUNTER 2021-05-26 09:45 | Outpatient (CLI) | payer MEDICARE, OTHER ==
--- NOTE | 2021-05-27 17:53 | CONSULTATION NOTE ---
Palliative Care Follow Up - Referral Referring Provider: Dr. Heriberto Christopher Time of Visit: Saturday05/26/21 [id number] Referral setting: Assisted living Referral Reason: RLE skin tear/Pulm HTN/Depression - Information Sources Records reviewed: Previous records reviewed History/Review of Systems obtained from: Patient, Nursing (joint visit with facility nurse Simin) Exam limitations: Clinical condition (mild STM related to ETOH use) - History of Present Illness Update Brief HPI Update: This is a 80-year-old woman with severe COPD, progressive pulmonary hypertension, active alcoholism, chronic back pain, rhinitis, and depression. She sustained a fairly significant laceration to her right lower extremity as a result of a fall, she is very thin skin from long-term prednisone use, complains of alternating itching and intermittent pain. She did complete 2 rounds of doxycycline, no further signs or symptoms of infection. On examination wound does appear to be healing, does have significant bruising through right sanchez area, pooling has absorbed that had a accumulated in her feet. Less than a 1 cm gap, filling in, only slight amount of moisture and drainage. No further need for Mepilex at this point in time, despite severity of skin tear, it is appear to be healing. Wound cleansed with normal saline, applied outer Telfa and secured with Tubigrip. Patient without any further signs or symptoms of infection. She was complaining of dry mouth, on examination patient does have some oral candidiasis, this would be expected in the context of her antibiotics as well as prednisone use. Patient is quite concerned with pending heat wave, this does exacerbate her COPD/breathing problems. She does have a fan in her room, but is already feeling some heaviness. She does have some fine crackles in her left lower lobe, does have a moist cough but nonproductive. She continues with both functional decline, as well as worsening respiratory status, she is quite limited as far as her activity both from her lower extremity weakness as well as her pain and breathlessness. Patient remains unhappy with her cushingoid appearance, have trialed weaning her off prednisone, currently on 9 mg, will decrease to 8 mg. Patient's weight remains stable at 116.6. Past Medical History: Pulmonary hypertension, centrilobular emphysema, end-stage COPD, chronic respiratory failure, pulmonary fibrosis, diastolic CHF, hypertension, chronic pain, hyperlipidemia, history of iron deficiency anemia, history of thrombocytopenia, GERD, depression, anxiety, osteoarthritis, former smoker 100 pack years, alcoholism currently still drinking 4 glasses wine/day in a monitored setting Social History - Living Situation Living arrangement: Assisted living Support System: Patient has been a long-term resident at [facility], there is often tension with the staff, these often have to do with her outbursts around behavior and drinking. She does have 2 sons, one in [place] and one in [facility], she does have a paid caregiver who does take her appointments and does her shopping for her weekly. She remains quite isolated and has not been going downstairs for meals Medications/Allergies - Medications Home Medications: Ambulatory Orders Medication Instructions Recorded Confirmed Cholecalciferol (Vitamin D3) 2,000 units PO DAILY 02/04/17 05/27/21 [Vitamin D3] Mometasone/Formoterol [Dulera 100 2 puffs INH BID 02/04/17 05/27/21 Mcg-5 Mcg Inhaler] Escitalopram [Lexapro] 10 mg PO DAILY 02/19/17 05/27/21 Loperamide [Imodium] 2 - 4 mg PO PRN PRN MDD NTE 6 tabs 09/29/17 05/27/21 in 24 hours Ipratropium [place] 2 sprays OMID Q8H 01/30/18 05/27/21 Diclofenac Sodium/Misoprostol 1 tab PO DAILY 09/29/18 05/27/21 [Diclofenac-Misoprost 50-200 Tb] Lovastatin 40 mg PO QPM 09/29/18 05/27/21 Omeprazole 40 mg PO DAILY 09/29/18 05/27/21 Sildenafil Citrate 20 mg PO TID 09/29/18 05/27/21 Spironolactone 25 mg PO DAILY 09/29/18 05/27/21 Tiotropium [place] [Spiriva 2 inh PO DAILY 09/29/18 05/27/21 Respimat] Potassium Chloride [K-Dur] 10 meq PO DAILY MDD with meals 12/10/18 05/27/21 Albuterol Sulfate [Proair 2 puffs PO Q4H PRN 04/03/19 05/27/21 Respiclick] Lidocaine Patch 5% [Lidoderm Patch] 1 patch TOP DAILY PRN MDD 16 04/03/19 05/27/21 Guaifenesin [Mucinex] 600 tab PO DAILY 07/01/19 05/27/21 Multivit-Min/FA/Lycopen/Lutein 1 tab PO DAILY 07/01/19 05/27/21 [Centrum Silver Men Tablet] Ambrisentan [Letairis] 10 mg DAILY 04/04/20 05/27/21 Fluticasone [Flonase] 1 spray BID 04/04/20 05/27/21 predniSONE [Prednisone] 8 mg DAILY 04/04/20 05/27/21 traZODone [Desyrel] 100 mg DAILY PM PRN 04/04/20 05/27/21 Diclofenac Sodium [Voltaren 4 mg PO BID MDD hands 08/05/20 05/27/21 Arthritis Pain] Ondansetron [Ondansetron Odt] 4 mg PO Q6HR PRN 08/05/20 05/27/21 Simethicone [Gas Relief] 125 mg PO QID PRN 08/05/20 05/27/21 diphenhydrAMINE [Benadryl] 25 - 50 mg PO DAILY PRN 08/05/20 05/27/21 Fexofenadine HCl 180 mg PO DAILY 10/16/20 05/27/21 Torsemide 20 mg PO DAILY 12/13/20 05/27/21 Triamcinolone 0.1% Cream [Kenalog 1 applic TOP BID PRN 12/13/20 05/27/21 0.1% Cream] traMADol [Ultram] 50 mg PO BID 12/13/20 05/27/21 - Allergies Allergies/Adverse Reactions: Allergies Allergy/AdvReac Type Severity Reaction Status Date / Time cephalexin [From Keflex] Allergy Severe Unknown Verified 04/29/21 19:11 Sulfa (Sulfonamide Allergy Mild Rash Verified 04/29/21 19:11 Antibiotics) Review of Systems - Constitutional Constitutional: reports: Fatigue (worsening), Weakness, Poor appetite, Weight stable (116.6). denies: Fever, Chills - Eyes Eyes: reports: Blurred vision (Patient reports she is having increased difficulty with her vision has not follow up with opthalmology), Vision loss, Corrective lenses - Ears, Nose & Throat Ears, Nose & Throat: reports: Nasal congestion, Postnasal drainage (clear), Dry mouth, Other (dry eyes: using eye drops) - Cardiovascular Cardiovascular: reports: Exertional dyspnea, Decr. exercise tolerance. denies: Edema - Respiratory Respiratory: reports: Cough, Sputum production (clear), Wheezing, SOB at rest, SOB with exertion - Gastrointestinal Gastrointestinal: reports: Reflux/heartburn (intermittent), Early satiety, Other (dislikes food at facililty;). denies: Diarrhea (uses loperamide daily) - Genitourinary Genitourinary: reports: Frequency - Musculoskeletal Musculoskeletal: reports: Back pain, Muscle aches (LE), Stiffness, Limited range of motion, Muscle weakness, Joint pain (identifies SI joint area of worsening pain), Assistive devices (uses walker in apartment; wheelchair to go to dining room) - Integumentary Integumentary: reports: Dryness - Neurological Neurological: reports: General weakness, Numbness (left leg), Abnormal gait - Psychiatric Psychiatric: reports: Depression, Anxiety, Other (irritable with pandemic/restrictions now distressed with upcoming heat wave) - Endocrine Endocrine: reports: Intolerance to heat - Hematologic/Lymphatic Hematologic/Lymph: reports: Bruising (new bruise on left sanchez;) - All Other Systems All Other Systems: reports: Reviewed and negative Physical Exam - Vital Signs Temperature: 97.9 C Pulse Rate: 100 Respiratory Rate: 20 O2 Saturation: 97 (6 liters at rest) Blood Pressure: 92/64 - Physical Exam General Appearance: positive: Alert Eyes Bilateral: positive: Normal inspection ENT: positive: Other (patient with scattered white patches on tongue/c/o worsening dry mouth) Neck: positive: Trachea midline, Other (cushingnoid appearance). negative: Lymphadenopathy (R), Lymphadenopathy (L) Cardiovascular: positive: Regular rate & rhythm, Tachycardia Respiratory: positive: Diminished throughout, Rales (crackles LLL). negative: No respiratory distress (respiratory effort with activity noted), Wheezes Abdomen: positive: Soft, Other (rounded) Skin: positive: Pallor, Dryness, Wound (see HPI 8 cm length of sanchez; bruising) Extremities: positive: No pedal edema, Other (right foot with fading purple related to blood pooling from hematoma) Neurologic/Psychiatric: positive: Oriented x3, Weakness, Depressed mood/affect, Flat affect Palliative Care - POLST Patient has POLST: Yes POLST Status: DNR, Selective Treatment Pain: Pain unchanged (back and leg pain; using 4 glasses of wine daily; has topical lidocaine patches; tramadol [address] Christopher), Pain improved (leg/wound pain alt with itching) Tiredness/Fatigue: Severe (7-10) Drowsiness/Sedation: Moderate (4-6) Nausea: None Anorexia: Mild (1-3) Dyspnea: Severe (7-10) Depression: Moderate (4-6) Anxiety: Mild (1-3) Feelings of wellbeing/Perceived Quality of Life: Fair, Acceptable, Worsening Sleep: Sleeps well (up to void) Constipation: No Performance Status: Patient is quite sedentary, spends most the time in her bed or sitting at her kitchen table. With her legs dependent. She is limited both by lower extremity weakness, poor balance, numbness in her left leg putting her at high risk for falls in conjunction with her alcohol use. She is more comfortable with her back pain laying in bed. She does need assistance with bathing, and has housekeeping services. - Palliative Care Discussion: Patient is quite discouraged overall, feels like her quality of life is limited. She does have limited interaction with anyone other than staff, she does make contact on the phone. But has not had any frequent visits. She does receive herself is declining, she denies anxiety or depression regarding this, she is looking forward to see the business rules analyst on Saturday, but unfortunately with heat wave may need to cancel. Impression and Recommendations - Palliative Care Impression: This is a fragile 80-year-old woman with advanced COPD, pulmonary hypertension, active alcoholism, chronic pain, and right lower extremity laceration with improvement. Palliative care continue provide support for symptom management as well as anticipatory guidance until transition to hospice. Recommendations/Counseling Done: 1. Right lower extremity laceration. Patient shows no further signs or symptoms of infection, did tolerate second round of doxycycline. Skin remains quite fragile, has just a little bit of drainage, will continue to keep it covered, will use Telfa Saturday, and keep dressing on until no longer needed for protection. Facility staff nurse will be doing dressing change, and notify me if needs further evaluation. Wound care provided today. 2. Long-term steroid use. Patient has been trialed on titration prior off of prednisone, is usually not tolerated this. So far she is doing okay, will titrate further down to 8 mg daily. 3. Oral candidiasis will order one-time dose of Diflucan 100 mg p.o. x1. 4. Advanced COPD. Patient continues to struggle with her ongoing decline, worsening dyspnea, declining activity tolerance, and concerned with impending heat wave. She does not tolerate breathing well in the heat, she does have a fan in her room. 5. Chronic back pain. Patient has chosen to continue drinking versus opioid use for her chronic back pain. She feels like she does better on the alcohol, she continues with 4 glasses of wine a day. She is not open into cutting back or changing her current regimen. There have been behavioral issues with staff at times, though her alcohol is dispensed is not always clear if she has other access. 6. Advanced care planning. Patient does have a POLST in place, does see herself is declining, continues to take things a day at a time. Has been offered support for symptoms of depression and anxiety, has declined and feels like she is doing fairly well given her current situation. She has found it difficult through the pandemic, with increased isolation, and her declining functional status 45 minutes with greater than 50% of this time in counseling, coordination of care with clinical staff, and anticipatory guidance.Palliative care will follow up in 3 to 4 weeks unless other complications noted regarding patient's baseline breathing, mood, or wound.
== END 2021-05-26 09:46 | disposition home or self-care (01) ==
LOC: PC 09:45
PROVIDERS: ATTEND Nurse Practitioner Adult Health
DX: Z51.5 Encounter for palliative care (principal); S81.811D Laceration without foreign body, right lower leg, subsequent encounter; W19.XXXD Unspecified fall, subsequent encounter; Z79.52 Long term (current) use of systemic steroids; B37.0 Candidal stomatitis; J43.2 Centrilobular emphysema; G89.29 Other chronic pain; M54.9 Dorsalgia, unspecified; F10.20 Alcohol dependence, uncomplicated; Z87.891 Personal history of nicotine dependence; Z66 Do not resuscitate

== ENCOUNTER 2021-06-23 09:30 | Outpatient (CLI) | payer MEDICARE, OTHER ==
--- NOTE | 2021-06-23 11:46 | CONSULTATION NOTE ---
Palliative Care Follow Up - Referral Referring Provider: Dr. Heriberto Christopher Time of Visit: Referral setting: Assisted living Referral Reason: RLE skin tear/wound/COPD/Depression - Information Sources Records reviewed: Previous records reviewed History/Review of Systems obtained from: Patient Exam limitations: Clinical condition (patient with signs of slurring/repetative questions r/t EToH) - History of Present Illness Update Brief HPI Update: This is a 80-year-old woman with severe COPD, progressive pulmonary hypertension, active alcoholism, chronic back pain, chronic left shoulder pain, rhinitis, and depression. Patient sustained a fairly significant laceration to her right lower extremity as result of a fall, she has very thin skin from long- term prednisone use complains of alternating itching and intermittent discomfort, she has been on 2 rounds of doxycycline, with no further signs or symptoms of infection. It is appear to be healing, it is now about 4 cm x 1 cm, periwound fragile epitheliazed, less than 30 % slough, with good granulating tissue despite her thin skin over her sanchez area. We are currently using Xeroform gauze, changing 3 x a week, using autolytic debridement with moist environment, nurse is softly removing slough with each dressing change with gauze. MANAGER OF REGULATORY AFFAIRS did dressing change today, with very little bleeding, skin looks healthy, very thin periwound skin but no signs or symptoms of infection. Patient continues to be quite impatient with the healing process, but reinforced that it is improving. Patient continues with worsening COPD, she does have a fan in her room, continues to have cough but clear sputum. She is still quite anxious to have her prednisone decreased, and would like to taper off. Given her long-term management on this, will continue to taper quite slowly. She is currently on 8 mg, will decrease to 7 mg. Patient is a start physical therapy next week for her left shoulder pain, patient has long-term chronic back pain. She is using wine 4 glasses a day to manage this, this is her choice over opioid support. She did see her family last weekend, they came into town for a of a long-term friend, she found this quite uplifting was able to see her grandchildren. She did take 24-48 hrs. afterwards to recover, but continues to sleep more, has had some weight loss she is at 115, and continues to have multiple complaints regarding her isolation and setting. Past Medical History: Pulmonary hypertension, centrilobular emphysema, end-stage COPD chronic respiratory failure on 6 L, pulmonary fibrosis, diastolic CHF, hypertension, chronic pain, hyperlipidemia, history of iron deficiency anemia, history of thrombocytopenia, GERD, depression, anxiety, osteoarthritis, former smoker 100 pack years, alcoholism currently still drinking 4 glasses wine/day in monitored setting. Social History - Living Situation Living arrangement: Assisted living Support System: Patient has 2 sons, one son is in [place] with his family and 1 son is here currently the [facility] from [facility]. She has been a long-term resident of [facility], continues to have often tension with staff related to her outbursts around behavior and her drinking. She does have a Paid caregiver who takes her appointments, brings her food, and does her shopping for her. She remains quite isolated, she is looking forward to date though they are going to restart bridge. She reports she has been down for some meals. Medications/Allergies - Medications Home Medications: Ambulatory Orders Medication Instructions Recorded Confirmed Cholecalciferol (Vitamin D3) 2,000 units PO DAILY 02/04/17 06/23/21 [Vitamin D3] Mometasone/Formoterol [Dulera 100 2 puffs INH BID 02/04/17 06/23/21 Mcg-5 Mcg Inhaler] Escitalopram [Lexapro] 10 mg PO DAILY 02/19/17 06/23/21 Loperamide [Imodium] 2 - 4 mg PO PRN PRN MDD NTE 6 tabs 09/29/17 06/23/21 in 24 hours Ipratropium [place] 2 sprays OMID Q8H 01/30/18 06/23/21 Diclofenac Sodium/Misoprostol 1 tab PO DAILY 09/29/18 06/23/21 [Diclofenac-Misoprost 50-200 Tb] Lovastatin 40 mg PO QPM 09/29/18 06/23/21 Omeprazole 40 mg PO DAILY 09/29/18 06/23/21 Sildenafil Citrate 20 mg PO TID 09/29/18 06/23/21 Spironolactone 25 mg PO DAILY 09/29/18 06/23/21 Tiotropium [place] [Spiriva 2 inh PO DAILY 09/29/18 06/23/21 Respimat] Potassium Chloride [K-Dur] 10 meq PO DAILY MDD with meals 12/10/18 06/23/21 Albuterol Sulfate [Proair 2 puffs PO Q4H PRN 04/03/19 06/23/21 Respiclick] Lidocaine Patch 5% [Lidoderm Patch] 1 patch TOP DAILY PRN MDD 16 04/03/19 06/23/21 Guaifenesin [Mucinex] 600 tab PO DAILY 07/01/19 06/23/21 Multivit-Min/FA/Lycopen/Lutein 1 tab PO DAILY 07/01/19 06/23/21 [Centrum Silver Men Tablet] Ambrisentan [Letairis] 10 mg DAILY 04/04/20 06/23/21 Fluticasone [Flonase] 1 spray BID 04/04/20 06/23/21 predniSONE [Prednisone] 7 mg DAILY MDD tapering down 04/04/20 06/23/21 traZODone [Desyrel] 100 mg DAILY PM PRN 04/04/20 06/23/21 Diclofenac Sodium [Voltaren 4 mg PO BID MDD hands 08/05/20 06/23/21 Arthritis Pain] Ondansetron [Ondansetron Odt] 4 mg PO Q6HR PRN 08/05/20 06/23/21 Simethicone [Gas Relief] 125 mg PO QID PRN 08/05/20 06/23/21 diphenhydrAMINE [Benadryl] 25 - 50 mg PO DAILY PRN 08/05/20 06/23/21 Fexofenadine HCl 180 mg PO DAILY 10/16/20 06/23/21 Torsemide 20 mg PO DAILY 12/13/20 06/23/21 Triamcinolone 0.1% Cream [Kenalog 1 applic TOP BID PRN 12/13/20 06/23/21 0.1% Cream] traMADol [Ultram] 50 mg PO BID 12/13/20 06/23/21 - Allergies Allergies/Adverse Reactions: Allergies Allergy/AdvReac Type Severity Reaction Status Date / Time cephalexin [From Keflex] Allergy Severe Unknown Verified 06/07/21 11:40 Sulfa (Sulfonamide Allergy Mild Rash Verified 06/07/21 11:40 Antibiotics) Review of Systems - Constitutional Constitutional: reports: Fatigue (persistent), Weakness, Poor appetite, Weight loss. denies: Fever, Chills - Eyes Eyes: reports: Blurred vision (Patient reports she is having increased difficulty with her vision has not follow up with opthalmology), Vision loss, Corrective lenses - Ears, Nose & Throat Ears, Nose & Throat: reports: Nasal congestion, Postnasal drainage (clear), Dry mouth, Other (dry eyes: using eye drops) - Cardiovascular Cardiovascular: reports: Exertional dyspnea, Decr. exercise tolerance. denies: Edema - Respiratory Respiratory: reports: Cough, Sputum production (clear), SOB at rest, SOB with exertion, Other (discomfort across her chest wall; tenderness to palpation). denies: Wheezing (not using albuterol any more; music therapy specialist told her probably wasn't helping; hasn't missed it no increaes in wheezing) - Gastrointestinal Gastrointestinal: reports: Reflux/heartburn (intermittent), Early satiety, Other (dislikes food at facililty; is having friend bring in). denies: Diarrhea (uses loperamide daily) - Genitourinary Genitourinary: reports: Frequency - Musculoskeletal Musculoskeletal: reports: Back pain, Muscle aches (LE), Stiffness, Limited range of motion, Muscle weakness, Joint pain (identifies SI joint area of worsening pain; left shoulder to go to [facility] next week), Assistive devices (uses walker in apartment; wheelchair to go to dining room) - Integumentary Integumentary: reports: Dryness - Neurological Neurological: reports: General weakness, Numbness (left leg), Abnormal gait - Psychiatric Psychiatric: reports: Depression, Anxiety - Endocrine Endocrine: reports: Intolerance to heat - Hematologic/Lymphatic Hematologic/Lymph: reports: Bruising (new bruise on left sanchez;) - All Other Systems All Other Systems: reports: Reviewed and negative Physical Exam - Vital Signs Temperature: 97.7 C Pulse Rate: 77 Respiratory Rate: 18 (22 with conversation) O2 Saturation: 98 (6 liters at rest) Blood Pressure: 104/64 - Physical Exam General Appearance: positive: No acute distress, Alert Eyes Bilateral: positive: Normal inspection Neck: positive: Trachea midline, Other (cushingnoid appearance). negative: Lymphadenopathy (R), Lymphadenopathy (L) Cardiovascular: positive: Regular rate & rhythm Respiratory: positive: Diminished throughout. negative: No respiratory distress (respiratory effort with activity noted), Wheezes Abdomen: positive: Soft, Other (rounded) Skin: positive: Pallor, Dryness, Wound (see HPI 3 cm filling in nicely; 40% slough; periwound with thinning) Extremities: positive: No pedal edema Neurologic/Psychiatric: positive: Oriented x3, Weakness, Depressed mood/affect, Flat affect Palliative Care - POLST Patient has POLST: Yes POLST Status: DNR, Selective Treatment Pain: Pain unchanged Tiredness/Fatigue: Severe (7-10) Drowsiness/Sedation: Moderate (4-6) Nausea: None Anorexia: Mild (1-3), Weight loss Dyspnea: Severe (7-10) Depression: Mild (1-3) Anxiety: None Feelings of wellbeing/Perceived Quality of Life: Fair, Poor, Acceptable, No change Sleep: Sleeps well Constipation: No Performance Status: Patient remains quite sedentary, spending most of her time in the bed or sitting in the kitchen table. She is though reporting she is going down to some meals, and plans to play bridge today. She is limited both by her lower extremity weakness, poor balance, as well as high risk for falls in conjunction with her alcohol use. She is most comfortable with her pain lying in bed. She does need assistance with bathing, and takes wheelchair down to meals. - Palliative Care Discussion: Patient continues to perceive her quality of life is declining, she is quite isolated. She did recently go out and spend time with family at a friend's , she found this a nice break and given the restrictions recently lifting, still has not been able to spend much time with her sons are grandchildren. Impression and Recommendations - Palliative Care Impression: This is a fragile 80-year-old woman with advanced COPD, pulmonary hypertension, active alcoholism, chronic pain, and with right lower extremity laceration with continued healing. Palliative care continue provide support for symptom management as well as anticipatory guidance until transition to hospice. Recommendations/Counseling Done: 1. Right lower extremity laceration. Patient without any signs or symptoms of infection, wound is filling in nicely, slough is dissolving. We will continue Saturday dressing changes with Xeroform for autolytic debridement. Wound care provided today. 2. Long-term steroid use. Patient has wanted to continue to titrate off of prednisone, so far has been tolerating this. Will titrate down to 7 mg daily with plan to further titrate in 2 to 3 weeks. 3. Advanced COPD. Patient continues to struggle with her ongoing worsening dyspnea, declining activity tolerance, she has had no recent exacerbations but is quite limited. She did see the music therapy specialist with no changes, but had told her most likely the albuterol is not doing her any good, and has stopped using this. Without any changes to how she feels, does not appear to have any impact. 4. Chronic back pain. Patient has chosen to continue drinking versus opioid use for chronic back pain, she continues with 4 glasses of wine a day, is not interested in cutting back or changing her current regimen though does obviously impact her. She does have fluctuating behavioral issues at times with staff, at this time no further changes needed. 5. Left shoulder pain. She is scheduled to start physical therapy at [facility]' next week. 6. Advanced care planning. Patient does have a POLST in place, with DN AR and selective treatments. She would want to go to [place] if she were needing to be hospitalized to be closer to a music therapy specialist. She does perceive herself is declining, denies any need for support for depression or anxiety and feels like she is doing currently pretty well given her situation. She has enjoyed the left and some of the restrictions and is looking forward to playing bridge. 30 minutes with greater than 50% of this done in counseling and coordination of care with clinical staff, patient's wound expected continued to improve, return visit in 4 to 6 weeks unless other complications arise.
== END 2021-06-23 09:31 | disposition home or self-care (01) ==
LOC: PC 09:30
PROVIDERS: ATTEND Nurse Practitioner Adult Health
DX: Z51.5 Encounter for palliative care (principal); S81.811D Laceration without foreign body, right lower leg, subsequent encounter; Z79.52 Long term (current) use of systemic steroids; J43.2 Centrilobular emphysema; M54.9 Dorsalgia, unspecified; G89.29 Other chronic pain; F10.20 Alcohol dependence, uncomplicated; M25.512 Pain in left shoulder; Z87.891 Personal history of nicotine dependence; Z66 Do not resuscitate

== ENCOUNTER 2021-07-26 09:30 | Outpatient (CLI) | payer MEDICARE, OTHER ==
--- NOTE | 2021-07-26 10:51 | PROVIDER PROGRESS NOTE ---
HPI/Interval History - HPI/Interval History This is a 80-year-old woman with severe COPD, progressive pulmonary hypertension, active alcoholism, chronic back pain, chronic left shoulder pain, rhinitis, and depression. Patient sustained a fairly significant laceration to her right lower extremity as a result of a fall, she is very thin skin from long-term prednisone use and has had a very slow heal since April. I am doing a joint visit with the facility RN secondary to recent Covid outbreak, she has showed me the wound, it is filling in, periwound is fragile, base of wound which is most likely 1 cm at the widest area with some crusting, and 2.5 cm long with dark red granulating tissue, only slightly moist. Have been using Xeroform and Tegaderm, changing 3 times a week using autolytic debridement and moist environment. No further evidence of yellow slough, skin around wound is dry and flaky, no bleeding. Patient continues to be quite impatient with the healing process, but reinforced that it is quite remarkable that it has almost healed. Patient continues with worsening COPD, continues to have cough but clear sputum. She continues to want to move forward with her prednisone taper, though has noted some decreased energy, she has been going out for physical therapy for her left shoulder without much improvement in the pain. She continues with chronic low back pain, using 4 glasses of wine a day to manage, this is her choice of her opioid support. She continues to be quite aggravated with the limitations regarding the pandemic and most recent Covid restrictions at facility. They are still able go down to the dining room, she reports appetite's been fair, she has been out to the [facility] and has gotten some new prescription glasses. She is looking forward to a visit this next weekend with her brother from [place] and [id number], she has not seen them for 2 years. Past medical history includes pulmonary hypertension, centrilobular emphysema, end-stage COPD, chronic respiratory failure on 6 L, pulmonary fibrosis, diastolic CHF, hypertension, chronic pain, hyperlipidemia, history of iron deficiency anemia, history of thrombocytopenia, GERD, depression, anxiety, osteoarthritis, former smoker 100 pack years, alcoholism continuing to drink 4 glasses of wine daily in monitored setting. Review of Systems - Constitutional Constitutional: reports: Fatigue (persistent), Weakness, Weight stable. denies: Fever, Chills - Eyes Eyes: reports: Blurred vision (Patient reports she is having increased difficulty with her vision has not follow up with opthalmology), Vision loss, Corrective lenses (getting new RX) - Ears, Nose & Throat Ears, Nose & Throat: reports: Nasal congestion, Postnasal drainage (clear), Dry mouth - Cardiovascular Cardiovascular: reports: Exertional dyspnea, Decr. exercise tolerance. denies: Edema - Respiratory Respiratory: reports: Cough, Sputum production (clear), SOB at rest, SOB with exertion. denies: Wheezing (not using albuterol any more; numerical control machine machinist told her probably wasn't helping; hasn't missed it no increaes in wheezing) - Gastrointestinal Gastrointestinal: reports: Reflux/heartburn (intermittent), Early satiety, Other (dislikes food at facililty; is having friend bring in). denies: Diarrhea (uses loperamide daily) - Genitourinary Genitourinary: reports: Frequency - Musculoskeletal Musculoskeletal: reports: Back pain, Muscle aches (LE), Stiffness, Limited range of motion, Muscle weakness, Joint pain (identifies SI joint area of worsening pain; left shoulder), Assistive devices (uses walker in apartment; wheelchair to go to dining room) - Integumentary Integumentary: reports: Dryness, Other (wound care 3 x week) - Neurological Neurological: reports: General weakness, Numbness (left leg), Abnormal gait - Psychiatric Psychiatric: reports: Depression, Anxiety - Endocrine Endocrine: reports: Intolerance to heat - Hematologic/Lymphatic Hematologic/Lymph: reports: Bruising - All Other Systems All Other Systems: reports: Reviewed and negative Medications/Allergies - Medications Home Medications: Ambulatory Orders Medication Instructions Recorded Confirmed Cholecalciferol (Vitamin D3) 2,000 units PO DAILY 02/04/17 06/23/21 [Vitamin D3] Mometasone/Formoterol [Dulera 100 2 puffs INH BID 02/04/17 06/23/21 Mcg-5 Mcg Inhaler] Escitalopram [Lexapro] 10 mg PO DAILY 02/19/17 06/23/21 Loperamide [Imodium] 2 - 4 mg PO PRN PRN MDD NTE 6 tabs 09/29/17 06/23/21 in 24 hours Ipratropium [place] 2 sprays OMID Q8H 01/30/18 06/23/21 Diclofenac Sodium/Misoprostol 1 tab PO DAILY 09/29/18 06/23/21 [Diclofenac-Misoprost 50-200 Tb] Lovastatin 40 mg PO QPM 09/29/18 06/23/21 Omeprazole 40 mg PO DAILY 09/29/18 06/23/21 Sildenafil Citrate 20 mg PO TID 09/29/18 06/23/21 Spironolactone 25 mg PO DAILY 09/29/18 06/23/21 Tiotropium [place] [Spiriva 2 inh PO DAILY 09/29/18 06/23/21 Respimat] Potassium Chloride [K-Dur] 10 meq PO DAILY MDD with meals 12/10/18 06/23/21 Albuterol Sulfate [Proair 2 puffs PO Q4H PRN 04/03/19 06/23/21 Respiclick] Lidocaine Patch 5% [Lidoderm Patch] 1 patch TOP DAILY PRN MDD 16 04/03/19 06/23/21 Guaifenesin [Mucinex] 600 tab PO DAILY 07/01/19 06/23/21 Multivit-Min/FA/Lycopen/Lutein 1 tab PO DAILY 07/01/19 06/23/21 [Centrum Silver Men Tablet] Ambrisentan [Letairis] 10 mg DAILY 04/04/20 06/23/21 Fluticasone [Flonase] 1 spray BID 04/04/20 06/23/21 predniSONE [Prednisone] 7 mg DAILY MDD tapering down 04/04/20 06/23/21 traZODone [Desyrel] 100 mg DAILY PM PRN 04/04/20 06/23/21 Diclofenac Sodium [Voltaren 4 mg PO BID MDD hands 08/05/20 06/23/21 Arthritis Pain] Ondansetron [Ondansetron Odt] 4 mg PO Q6HR PRN 08/05/20 06/23/21 Simethicone [Gas Relief] 125 mg PO QID PRN 08/05/20 06/23/21 diphenhydrAMINE [Benadryl] 25 - 50 mg PO DAILY PRN 08/05/20 06/23/21 Fexofenadine HCl 180 mg PO DAILY 10/16/20 06/23/21 Torsemide 20 mg PO DAILY 12/13/20 06/23/21 Triamcinolone 0.1% Cream [Kenalog 1 applic TOP BID PRN 12/13/20 06/23/21 0.1% Cream] traMADol [Ultram] 50 mg PO BID 12/13/20 06/23/21 - Allergies Allergies/Adverse Reactions: Allergies Allergy/AdvReac Type Severity Reaction Status Date / Time cephalexin [From Keflex] Allergy Severe Unknown Verified 06/07/21 11:40 Sulfa (Sulfonamide Allergy Mild Rash Verified 06/07/21 11:40 Antibiotics) Physical Exam - Physical Exam Please see HPI for description of wound. Patient appears in engaged, modulated, speech slightly slurred as baseline regarding and attributed to drinking. Voice is modulated, does have frequent intermittent cough with increased conversation. With effort does have increased respiratory rate. Color is baseline. Palliative Care - POLST Patient has POLST: Yes POLST Status: DNR, Selective Treatment Pain: Pain unchanged (lower back), Pain improved (RLE wound pain; left shoulder slightly) Tiredness/Fatigue: Severe (7-10) Drowsiness/Sedation: Moderate (4-6) Nausea: None Anorexia: Mild (1-3) Dyspnea: Severe (7-10) Depression: Mild (1-3) Anxiety: Mild (1-3) Feelings of wellbeing/Perceived Quality of Life: Fair, Acceptable, Worsening - Palliative Care Discussion: Patient continues to be somewhat distressed regarding ongoing issues around restrictions of Covid and facility. She does acknowledge she is "alive and functioning", she does stay in touch with her family, her son currently from [facility] is traveling around the [place] in sharing his adventures. She tracks her son and [id number] who are recently home from vacation the children are returning back to school. She has very little to do to break up the monotony but feels like she is coping overall. Impression and Recommendations - Palliative Care Impression: This is a fragile 80-year-old woman with advanced COPD, pulmonary hypertension, active alcoholism, chronic pain and right lower extremity laceration with continued progression of healing though slow. Palliative care continue provide support for symptom management as well as anticipatory guidance until transition to hospice. Recommendations/Counseling Done: 1.Right lower extremity laceration. Patient without any signs or symptoms of infection, no further slough. We will continue Saturday dressings, will change out Xeroform for just Vaseline gauze to keep last of wound care moist to facilitate further healing. Will add Skin-Prep to edges to avoid maceration and lotion to whole of area that has healed as well as her lower extremity. Orders sent to facility. 2. Long-term steroid use patient wants to continue to titrate off prednisone, patient declares no notable change though does describe decreased energy. Has last titration on 7Milligrams, on 07/17 titrated down to 6 mg, will titrate down to 5 at the beginning of August. 3. Advanced COPD. Patient continues to struggle with ongoing worsening dyspnea, declining activity tolerance, no recent exacerbations but remains quite limited.No changes to current plan. 4. Left shoulder pain. Patient has initiated treatment at her right is physical therapy, reports it is going okay, but discouraged not better results. She is going to continue to go, does enjoy the activity and getting out of the facility. 5. Advanced care planning. Patient does have POLST in place with DN AR selective treatments. She would want to go to [place] if she would need to be hospitalized to be closer to per numerical control machine machinist. She continues to perceive herself as grateful for at least being "a life and functioning", denies any increased need or support for depression or anxiety though does express increasing aggravation with the current restrictions regarding the pandemic. She is looking forward to a visit with her family pending Telehealth Visit - TeleMedicine Visit Referring Provider: Dr. Heriberto Christopher Visit Type:: TeleHealth Video Call Patient agrees and consents to this telehealth visit type: Yes Patient agrees to have their insurance billed: Yes Video Type: pMDsoft Participants:: Other (Facility nurse) Location of provider:: Office Location of patient:: Assisted Living Time spent:: 0930 30 minutes Provider Statement: I spent 100% on the TeleHealth Video Call with the patient with greater than 50% spent counseling the patient and coordination of care.
== END 2021-07-26 09:31 | disposition home or self-care (01) ==
LOC: PC 09:30
PROVIDERS: ATTEND Nurse Practitioner Adult Health
DX: Z51.5 Encounter for palliative care (principal); S81.811D Laceration without foreign body, right lower leg, subsequent encounter; W19.XXXD Unspecified fall, subsequent encounter; Z79.52 Long term (current) use of systemic steroids; J43.2 Centrilobular emphysema; M25.519 Pain in unspecified shoulder; M54.9 Dorsalgia, unspecified; G89.29 Other chronic pain; F10.20 Alcohol dependence, uncomplicated; I27.20 Pulmonary hypertension, unspecified; J96.10 Chronic respiratory failure, unspecified whether with hypoxia or hypercapnia; Z99.81 Dependence on supplemental oxygen; Z87.891 Personal history of nicotine dependence; Z66 Do not resuscitate

== ENCOUNTER 2021-08-03 11:00 | Outpatient (CLI) | payer MEDICARE, OTHER ==
--- NOTE | 2021-08-03 17:09 | CONSULTATION NOTE ---
Palliative Care Follow Up - Referral Referring Provider: Dr. Heriberto Christopher Time of Visit: [id number] Referral setting: Assisted living Referral Reason: f/up Fall/skin tear left thumb/RLE wound/COPD - Information Sources Records reviewed: Previous records reviewed History/Review of Systems obtained from: Patient Exam limitations: No limitations - History of Present Illness Update Brief HPI Update: This is a 80-year-old woman with severe COPD, progressive pulmonary hypertension, active alcoholism, chronic back pain, chronic left shoulder pain, rhinitis and depression. Patient had sustained another fall on 07/31, had returned from dinner with her brother and [id number], significantly inebriated. Staff reports she was verbally abusive, not cooperative, and sustained fall when attempts were made to assisted her to bed. She has a small 1 cm skin tear on her left thumb knuckle, no signs or symptoms of infection. They have Steri-Stripped it and covered it with a dressing. She reinjured her right lower extremity, with significant bruising on sanchez, but no further skin tears. Patient has a slow healing wound on her right lower extremity from a fall sustained in April. It is down to less than 0.375 cm of granulating tissue. Patient is quite unwilling to change her behavior, when asked about the incident and confronted about her inebriation, she reports "of course I was, on purpose". She feels it actually most likely will be her last time out, given both the pandemic and her declining functional status. She continues to be quite aggravated with the limitations, and restrictions at the facility. She was able to see her son and his family over the weekend while her brother were visiting, this is the first positive thing in a long while for her. She has been distressed at the isolation, turnover and staff, and has been fairly hostile in her interactions to staff per report. Patient has been getting physical therapy for her left shoulder, does not feel this is helping with the pain. But she does enjoy going out. Her breathing continues to deteriorate, no change from baseline as far as cough or change in sputum. She is sleeping more, and continues to actively drink, she has been prescribed 4 glasses of wine for the 24 hours, but often supplements this through outside friends. Past Medical History: Pulmonary hypertension, centrilobular emphysema, end-stage COPD, chronic respiratory failure on 6 L, pulmonary fibrosis, diastolic CHF, hypertension, chronic pain, hyperlipidemia, history of iron deficiency anemia, history of thrombocytopenia, GERD, depression, anxiety, osteoarthritis, former smoker/100 pack years, alcoholism continue to drink 4 glasses of wine daily in monitored setting Social History - Living Situation Living arrangement: Assisted living Support System: Patient has lives long-term at [facility], continues to have a contentious relationship with staff related to her outbursts around behavior and drinking. She does have a paid caregiver who takes her appointments, does her shopping, and brings her food. She remains quite isolated, she did have a family visit this last weekend and found that quite enjoyable. He has 2 sons, one from [place], is currently the [facility] traveling and her son and his family in [place]. Medications/Allergies - Medications Home Medications: Ambulatory Orders Medication Instructions Recorded Confirmed Cholecalciferol (Vitamin D3) 2,000 units PO DAILY 02/04/17 08/04/21 [Vitamin D3] Mometasone/Formoterol [Dulera 100 2 puffs INH BID 02/04/17 08/04/21 Mcg-5 Mcg Inhaler] Escitalopram [Lexapro] 10 mg PO DAILY 02/19/17 08/04/21 Loperamide [Imodium] 2 - 4 mg PO PRN PRN MDD NTE 6 tabs 09/29/17 08/04/21 in 24 hours Ipratropium [place] 2 sprays OMID Q8H 01/30/18 08/04/21 Diclofenac Sodium/Misoprostol 1 tab PO DAILY 09/29/18 08/04/21 [Diclofenac-Misoprost 50-200 Tb] Lovastatin 40 mg PO QPM 09/29/18 08/04/21 Omeprazole 40 mg PO DAILY 09/29/18 08/04/21 Sildenafil Citrate 20 mg PO TID 09/29/18 08/04/21 Spironolactone 25 mg PO DAILY 09/29/18 08/04/21 Tiotropium [place] [Spiriva 2 inh PO DAILY 09/29/18 08/04/21 Respimat] Potassium Chloride [K-Dur] 10 meq PO DAILY MDD with meals 12/10/18 08/04/21 Albuterol Sulfate [Proair 2 puffs PO Q4H PRN 04/03/19 08/04/21 Respiclick] Lidocaine Patch 5% [Lidoderm Patch] 1 patch TOP DAILY PRN MDD 16 04/03/19 08/04/21 Guaifenesin [Mucinex] 600 tab PO DAILY 07/01/19 08/04/21 Multivit-Min/FA/Lycopen/Lutein 1 tab PO DAILY 07/01/19 08/04/21 [Centrum Silver Men Tablet] Ambrisentan [Letairis] 10 mg DAILY 04/04/20 08/04/21 Fluticasone [Flonase] 1 spray BID 04/04/20 08/04/21 predniSONE [Prednisone] 6 mg DAILY MDD tapering down 04/04/20 08/04/21 traZODone [Desyrel] 100 mg DAILY PM PRN 04/04/20 08/04/21 Diclofenac Sodium [Voltaren 4 mg PO BID MDD hands 08/05/20 08/04/21 Arthritis Pain] Ondansetron [Ondansetron Odt] 4 mg PO Q6HR PRN 08/05/20 08/04/21 Simethicone [Gas Relief] 125 mg PO QID PRN 08/05/20 08/04/21 diphenhydrAMINE [Benadryl] 25 - 50 mg PO DAILY PRN 08/05/20 08/04/21 Fexofenadine HCl 180 mg PO DAILY 10/16/20 08/04/21 Torsemide 20 mg PO DAILY 12/13/20 08/04/21 Triamcinolone 0.1% Cream [Kenalog 1 applic TOP BID PRN 12/13/20 08/04/21 0.1% Cream] traMADol [Ultram] 50 mg PO BID 12/13/20 08/04/21 Acetaminophen [Acetaminophen Extra 500 mg PO BID MDD 3000 mg 08/04/21 08/04/21 Strength] - Allergies Allergies/Adverse Reactions: Allergies Allergy/AdvReac Type Severity Reaction Status Date / Time cephalexin [From Keflex] Allergy Severe Unknown Verified 06/07/21 11:40 Sulfa (Sulfonamide Allergy Mild Rash Verified 06/07/21 11:40 Antibiotics) Review of Systems - Constitutional Constitutional: reports: Fatigue (worsening), Weakness, Weight stable (114.6). denies: Fever, Chills - Eyes Eyes: reports: Blurred vision (Patient reports she is having increased difficulty with her vision has not follow up with opthalmology), Vision loss, Corrective lenses (getting new RX) - Ears, Nose & Throat Ears, Nose & Throat: reports: Nasal congestion, Postnasal drainage (clear), Dry mouth - Cardiovascular Cardiovascular: reports: Exertional dyspnea, Decr. exercise tolerance. denies: Edema - Respiratory Respiratory: reports: Cough, Sputum production (clear), SOB at rest, SOB with exertion. denies: Wheezing (not using albuterol any more; propeller inspector told her probably wasn't helping; hasn't missed it no increaes in wheezing) - Gastrointestinal Gastrointestinal: reports: Reflux/heartburn (intermittent), Early satiety, Other (dislikes food at facililty; is having friend bring in). denies: Diarrhea (uses loperamide daily) - Genitourinary Genitourinary: reports: Frequency - Musculoskeletal Musculoskeletal: reports: Back pain, Muscle aches (LE), Stiffness, Limited range of motion, Muscle weakness, Joint pain (identifies SI joint area of worsening pain; left shoulder), Assistive devices (uses walker in apartment; wheelchair to go to dining room) - Integumentary Integumentary: reports: Dryness, Other (wound care 3 x week fro RLE; new skin tear left thumb) - Neurological Neurological: reports: General weakness, Numbness (left leg), Abnormal gait - Psychiatric Psychiatric: reports: Depression, Anxiety - Endocrine Endocrine: reports: Intolerance to heat - Hematologic/Lymphatic Hematologic/Lymph: reports: Bruising (extended bruising with fall /30 on RLE) - All Other Systems All Other Systems: reports: Reviewed and negative Physical Exam - Vital Signs Temperature: 97.7 C Pulse Rate: 92 Respiratory Rate: 18 O2 Saturation: 98 (ra @ rest) Blood Pressure: 110/72 - Physical Exam General Appearance: positive: No acute distress, Alert Eyes Bilateral: positive: Normal inspection Neck: positive: Trachea midline, Other (cushingnoid appearance diminishing). negative: Lymphadenopathy (R), Lymphadenopathy (L) Cardiovascular: positive: Regular rate & rhythm Respiratory: positive: Diminished throughout. negative: No respiratory distress (respiratory effort with activity noted), Wheezes Abdomen: positive: Soft, Other (rounded) Skin: positive: Pallor, Dryness, Wound (less than 0.75 cm granulating tissue left; very shallow RLE sanchez area; extended bruising above from new fall 07/31; new less than 1 cm skin tear left thumb knuckle no s/s infection or redness; steristrips covering edges-appear well proximated) Extremities: positive: No pedal edema Neurologic/Psychiatric: positive: Oriented x3, Weakness, Depressed mood/affect, Flat affect Palliative Care - POLST Patient has POLST: Yes POLST Status: DNR, Selective Treatment Pain: Pain unchanged, Location (lower back; right shoulder), Severity (07/11) Tiredness/Fatigue: Moderate (4-6) Drowsiness/Sedation: Moderate (4-6) Nausea: None Anorexia: Mild (1-3), Weight loss Dyspnea: Severe (7-10) Depression: Moderate (4-6) Anxiety: Mild (1-3) Feelings of wellbeing/Perceived Quality of Life: Poor, Worsening Sleep: Sleeps well Constipation: No Performance Status: Patient continues to have declining functional status, with decrease activity tolerance. She does need assistance with bathing, they are bringing her down by wheelchair to meals. - Palliative Care Discussion: Patient continues to be distressed by her declining quality of life, isolation, and restrictions. She continues with multiple complaints regarding staff and support, the tensions go both ways. She did enjoy her time with her family, continue to wonder if this is when the last time she will be able to get out and enjoy her family. She had not seen her brother for 2 years, was reflective of their relationship and time. Impression and Recommendations - Palliative Care Impression: This is a fragile 80-year-old woman with advanced COPD, pulmonary hypertension, active alcoholism, chronic pain, and new injuries secondary to ground-level fall. Follow-up visit to evaluate injuries and address facility concerns. Palliative care continue provide support for symptom management as well as anticipatory guidance until transition to hospice. Recommendations/Counseling Done: 1. Left skin tear of thumb. Patient with injury secondary ground-level fall, does not appear to have any signs or symptoms of infection, edges approximated under Steri-Strips. Instructed to keep covered and allow to heal. 2. Right lower extremity laceration. Wound almost healed, no signs or symptoms of infection, patient continues to be somewhat distressed as the delay in healing. But given the severity of the laceration it is remarkable its continuing to do well. Facility continue to change dressing 3 times a week. 3. Long-term steroid use. Patient would like to continue to titrate off prednisone, last titration on 07/17, will titrate down to 5 mg. 4. Alcoholism. Patient continues to drink, had been monitored and controlled though patient does push boundaries. Continues to cause tension with staff, as well as increase patient's risk. Patient is aware of this, has been put on contract before with very little follow-through. Counseling provided regarding again concerns of patient safety, verbalizes understanding though unlikely to change behaviors. 5. Advanced COPD. Patient struggles with continued worsening dyspnea, declining activity tolerance, no recent exacerbations but remains quite limited. No changes to current plan. 6. Advanced care planning. Patient does have POLST in place with [facility] and selective treatments. She would want to go to [place] if she would need to be hospitalized to be closer to her propeller inspector. She enjoyed her most recent visit with her family, wondering if she will be able to continue to leave outside of the facility given her declining functional status. She notes her time is limited and understands the seriousness of her illness. She is quite unhappy in her current situation, though does not see any other options given her high care needs and cost of care. 45 minutes with greater than 50% of this done in counseling regarding behaviors, symptom management, and anticipatory guidance, coordination of care with facility staff
== END 2021-08-03 11:01 | disposition home or self-care (01) ==
LOC: PC 11:00
PROVIDERS: ATTEND Nurse Practitioner Adult Health
DX: Z51.5 Encounter for palliative care (principal); I27.20 Pulmonary hypertension, unspecified; J43.2 Centrilobular emphysema; F10.20 Alcohol dependence, uncomplicated; G89.29 Other chronic pain; M54.9 Dorsalgia, unspecified; M25.512 Pain in left shoulder; J31.0 Chronic rhinitis; F32.9 Major depressive disorder, single episode, unspecified; S61.012A Laceration without foreign body of left thumb without damage to nail, initial encounter; S80.11XA Contusion of right lower leg, initial encounter; W19.XXXA Unspecified fall, initial encounter; S81.811D Laceration without foreign body, right lower leg, subsequent encounter; W19.XXXD Unspecified fall, subsequent encounter; J96.10 Chronic respiratory failure, unspecified whether with hypoxia or hypercapnia; J84.10 Pulmonary fibrosis, unspecified; I11.0 Hypertensive heart disease with heart failure; I50.32 Chronic diastolic (congestive) heart failure; Z99.81 Dependence on supplemental oxygen; Z87.891 Personal history of nicotine dependence; Z66 Do not resuscitate; Z91.81 History of falling; Z79.52 Long term (current) use of systemic steroids

== ENCOUNTER 2021-09-19 09:30 | Outpatient (CLI) | payer MEDICARE, OTHER ==
--- NOTE | 2021-09-19 15:11 | CONSULTATION NOTE ---
Palliative Care Follow Up - Referral Referring Provider: Dr. Heriberto Christopher Time of Visit: [id number] Referral setting: Assisted living Referral Reason: RLE wound/Dry eyes/Rhinitis/COPD/Chronic Pain - Information Sources Records reviewed: Previous records reviewed History/Review of Systems obtained from: Patient Exam limitations: No limitations - History of Present Illness Update Brief HPI Update: This is a 80-year-old woman with severe COPD, progressive pulmonary hypertension, active alcoholism, chronic back pain, chronic left shoulder pain, multiple joint discomfort, rhinitis, and depression. Patient had sustained a wound on her right lower extremity sanchez, this is finally healed up, though the skin remains quite fragile and thin. She presents today with a litany of complaints, in the context of her chronic illnesses, her unhappiness with her current situation, and ongoing slow decline. Patient been getting physical therapy for her left shoulder, this has not been effective so she is no longer going. She is quite insistent on and decreasing her prednisone, we are at 5 mg, after much discussion we will leave her at this. I suspect some of her osteoarthritis and multijoint pain is related to her titration. Continues with chronic back pain, though is on tramadol, has made the choice to continue with alcohol over stronger opioids. She is lobbying for increased alcohol allotment, though often has falls, and create staff tension when she is inebriated. She tends to have increased outbursts around her behavior during this time. She is very unhappy with her current setting, perceives that she developed food poisoning the beginning of the week, reports weight loss from decreased intake because of the food, as well as dissatisfaction over turnover. Past Medical History: Pulmonary hypertension, centrilobular emphysema, end-stage COPD, chronic respiratory failure on 6 to 8 L, pulmonary fibrosis, diastolic CHF, hypertension, chronic pain, hyperlipidemia, history of iron deficiency anemia, history of thrombocytopenia, GERD, depression, anxiety, osteoarthritis, former smoker/100 pack years, alcoholism continue to drink 4 glasses of wine daily in monitored setting Social History - Living Situation Living arrangement: Assisted living Support System: Patient has lives long-term at [facility], continues have a contentious relationship with staff related to her outburst on behavior and drinking. She does have a paid caregiver who comes weekly to take her to appointments, does her shopping, brings her food. She remains quite isolated, she has 1 son in [place], 1 son who is in [place] who is immunocompromised. She has not had any recent visits from family. Medications/Allergies - Medications Home Medications: Ambulatory Orders Medication Instructions Recorded Confirmed Cholecalciferol (Vitamin D3) 2,000 units PO DAILY 02/04/17 09/19/21 [Vitamin D3] Mometasone/Formoterol [Dulera 100 2 puffs INH BID 02/04/17 09/19/21 Mcg-5 Mcg Inhaler] Escitalopram [Lexapro] 10 mg PO DAILY 02/19/17 09/19/21 Loperamide [Imodium] 2 - 4 mg PO PRN PRN MDD NTE 6 tabs 09/29/17 09/19/21 in 24 hours Ipratropium Cope 2 sprays OMID Q8H 01/30/18 09/19/21 Diclofenac Sodium/Misoprostol 1 tab PO DAILY 09/29/18 09/19/21 [Diclofenac-Misoprost 50-0.2 mg] Lovastatin 40 mg PO QPM 09/29/18 09/19/21 Omeprazole 40 mg PO DAILY 09/29/18 09/19/21 Sildenafil Citrate 20 mg PO TID 09/29/18 09/19/21 Spironolactone 25 mg PO DAILY 09/29/18 09/19/21 Tiotropium Cope [Spiriva 2 inh PO DAILY 09/29/18 09/19/21 Respimat] Potassium Chloride [K-Dur] 10 meq PO DAILY MDD with meals 12/10/18 09/19/21 Albuterol Sulfate [Proair 2 puffs PO Q4H PRN 04/03/19 08/04/21 Respiclick] Lidocaine Patch 5% [Lidoderm Patch] 1 patch TOP DAILY PRN MDD 16 04/03/19 09/19/21 Guaifenesin [Mucinex] 600 tab PO DAILY 07/01/19 09/19/21 Multivit-Min/FA/Lycopen/Lutein 1 tab PO DAILY 07/01/19 09/19/21 [Centrum Silver Men Tablet] Ambrisentan [Letairis] 10 mg DAILY 04/04/20 09/19/21 Fluticasone [Flonase] 1 spray OMID BID 04/04/20 09/19/21 predniSONE [Prednisone] 5 mg PO DAILY MDD no further taper 04/04/20 09/19/21 traZODone [Desyrel] 100 mg PO DAILY PM PRN 04/04/20 09/19/21 Diclofenac Sodium [Voltaren 4 mg PO BID MDD hands 08/05/20 09/19/21 Arthritis Pain] Ondansetron [Ondansetron Odt] 4 mg PO Q6HR PRN 08/05/20 09/19/21 Simethicone [Gas Relief] 125 mg PO QID PRN 08/05/20 09/19/21 diphenhydrAMINE [Benadryl] 25 - 50 mg PO DAILY PRN 08/05/20 09/19/21 Fexofenadine HCl 180 mg PO DAILY 10/16/20 09/19/21 Torsemide 20 mg PO DAILY 12/13/20 09/19/21 Triamcinolone 0.1% Cream [Kenalog 1 applic TOP BID PRN 12/13/20 09/19/21 0.1% Cream] traMADol [Ultram] 50 mg PO BID 12/13/20 09/19/21 Acetaminophen [Acetaminophen Extra 500 mg PO BID MDD 3000 mg 08/04/21 09/19/21 Strength] - Allergies Allergies/Adverse Reactions: Allergies Allergy/AdvReac Type Severity Reaction Status Date / Time cephalexin [From Keflex] Allergy Severe Unknown Verified 06/07/21 11:40 Sulfa (Sulfonamide Allergy Mild Rash Verified 06/07/21 11:40 Antibiotics) Review of Systems - Constitutional Constitutional: reports: Fatigue (worsening), Weakness, Weight loss (113; attributes to food), Other (reports vomiting with Saturday meal; feels it was food poisoning). denies: Fever, Chills - Eyes Eyes: reports: Blurred vision (Patient reports she is having increased difficulty with her vision has not follow up with opthalmology), Vision loss, Corrective lenses (got new RX; now unhappy about fitting) - Ears, Nose & Throat Ears, Nose & Throat: reports: Nasal congestion (using flonase; has bottle of ipratropium nasal spray; ordered new RX and inst to use TID at beds dang), Postnasal drainage (clear), Dry mouth - Cardiovascular Cardiovascular: reports: Exertional dyspnea, Decr. exercise tolerance. denies: Edema - Respiratory Respiratory: reports: Cough, Sputum production (clear), SOB at rest, SOB with exertion. denies: Wheezing (not using albuterol any more; rehab rn told her probably wasn't helping; hasn't missed it no increaes in wheezing) - Gastrointestinal Gastrointestinal: reports: Reflux/heartburn (intermittent), Early satiety. denies: Diarrhea (uses loperamide daily) - Genitourinary Genitourinary: reports: Frequency - Musculoskeletal Musculoskeletal: reports: Back pain, Muscle aches (LE), Stiffness, Limited range of motion, Muscle weakness, Joint pain (identifies SI joint area of worsening pain; left shoulder; now multiple joint discomforts; feels worsening), Assistive devices (uses walker in apartment; wheelchair to go to dining room; feels balance is worsening) - Integumentary Integumentary: reports: Dryness - Neurological Neurological: reports: General weakness, Numbness (left leg), Abnormal gait - Psychiatric Psychiatric: reports: Depression, Anxiety - Endocrine Endocrine: reports: Intolerance to heat - Hematologic/Lymphatic Hematologic/Lymph: reports: Bruising (extensive bruising in LE; skin thinned) - All Other Systems All Other Systems: reports: Reviewed and negative Physical Exam - Vital Signs Temperature: 97.3 C Pulse Rate: 90 Respiratory Rate: 18 O2 Saturation: 99 (7 liters) Blood Pressure: 112/62 - Physical Exam General Appearance: positive: No acute distress, Alert Eyes Bilateral: positive: Normal inspection ENT: positive: No signs of dehydration Neck: positive: Trachea midline. negative: Lymphadenopathy (R), Lymphadenopathy (L) Cardiovascular: positive: Regular rate & rhythm Respiratory: positive: Diminished throughout. negative: No respiratory distress (respiratory effort with activity noted), Wheezes Abdomen: positive: Soft, Other (rounded) Skin: positive: Pallor, Dryness. negative: Wound (healed) Extremities: positive: No pedal edema Neurologic/Psychiatric: positive: Oriented x3, Weakness, Depressed mood/affect, Flat affect Palliative Care - POLST Patient has POLST: Yes POLST Status: DNR, Selective Treatment Pain: Pain worsening, Location (see hPI) Feelings of wellbeing/Perceived Quality of Life: Poor, Acceptable, Worsening Sleep: Variable sleep pattern Performance Status: Patient continues to decline functionally, having more balance problems, increased weakness. She reports she is sleeping more. She does need assistance with bathing. She is quite limited by her dyspnea. She does occasionally go down stairs for an activity and a meal, but mostly stays isolated in her room. She does need to go down by wheelchair - Palliative Care Discussion: Patient continues to be very unhappy with her current living situation, we reviewed though most assisted living or shortstaffed at this point in time. They have had to accommodate as far as food short staff, closing of dining rooms, and pandemic restrictions. She is concerned that she will be running out her long-term care insurance at the end of the year. Her very close friends that she has had in the community, have either or are worsening as far as her health care issues. She has very little psychosocial support Impression and Recommendations - Palliative Care Impression: This is a fragile 80-year-old woman with advanced COPD, pulmonary hypertension, active alcoholism, chronic pain, and declining quality of life. Patient is continuing with dissatisfaction in her current living situation, though are very few other options for patient to consider. Called her current right support for symptom management as well as anticipatory guidance until transition to hospice. Recommendations/Counseling Done: 1. Right lower extremity laceration. Wound is healed, with no signs or symptoms of infection. Skin remains very thin did not high risk for further trauma or injury. Recommended to apply Eucerin cream twice daily, to keep skin in better condition as it is quite dry and looking fairly unstable. 2. Long-term steroid use. Patient would like to titrate off prednisone, we did titrate her down to 5 mg. She has not noticed any difference though she has had an exacerbation in her joint pain as well as decrease in her appetite and weight. Recommended she consider continue at current dosing level, as she has been on it long-term, also if feel an exacerbation of her pain or arthritis can increase at least for the short-term. Patient verbalizes understanding. 3. Dry eyes. Patient with fairly high oxygen flow, suspect this is adding to it. She has been to the eye doctor without satisfactory answers. She has been instructed to use artificial tears, she does not feel these have been effective of and her worst time is at night. We did discuss using Systane ointment in the evenings to help with moisturizing. She would like to give it a try. Ordered from pharmacy. 4. Hearing loss. Patient reports itchy ears, worsening wax buildup, would like to have her ears cleaned. Will make arrangements to my partner for flush and care. 5. Rhinitis. Patient continues with complaints of nasal congestion and di scomfort. She does have a deviated septum, as well as gets quite dry with high oxygen flow. She has been instructed to use K-Y jelly in the past, unclear her compliance with this. She has been using the Flonase, she does have a next Byard bottle of the ipratropium nasal spray, is probably not been using it. Instructed to restart this as well. 6. Depression. This is situational and multifactorial, patient with increasing dissatisfaction in her current living situation though has very few options and community support to be able to transition to a different setting. She is fearful as she will be running out of money end of year. She does continue to drink, she is pressing for increased alcohol. We discussed it puts her at high risk for falls, she pretty much "blows this off". She has seen the palliative care social work lecturer in the past, declines further contact at this point in time. 7. Advanced care planning. Patient perceives her longevity directly related to her alcohol intake and sustainability. She dislikes very much her dependency. Patient does have a POLST with DN AR/DNI and selective treatments. Patient continues with multiple morbidities and at high risk for falls and sequela for further decline. 45 minutes with greater than 50% of this done in counseling regarding pain and symptom management, review of patient's multiple complaints, review of medications and anticipatory guidance
== END 2021-09-19 09:31 | disposition home or self-care (01) ==
LOC: PC 09:30
PROVIDERS: ATTEND Nurse Practitioner Adult Health
DX: Z51.5 Encounter for palliative care (principal); J44.9 Chronic obstructive pulmonary disease, unspecified; G89.29 Other chronic pain; I27.20 Pulmonary hypertension, unspecified; F32.9 Major depressive disorder, single episode, unspecified; H04.129 Dry eye syndrome of unspecified lacrimal gland; J31.0 Chronic rhinitis; F10.20 Alcohol dependence, uncomplicated; M25.512 Pain in left shoulder; H53.8 Other visual disturbances; R35.0 Frequency of micturition; H91.90 Unspecified hearing loss, unspecified ear; Z66 Do not resuscitate; Z91.81 History of falling; Z79.52 Long term (current) use of systemic steroids

== ENCOUNTER 2022-03-31 09:56 | Outpatient (CLI) | payer MEDICARE, OTHER | END 2022-03-31 09:57 | disposition critical access hospital (66) | LOC: EMS 09:56 | DX: S81.011A Laceration without foreign body, right knee, initial encounter (principal); S51.012A Laceration without foreign body of left elbow, initial encounter; W01.0XXA Fall on same level from slipping, tripping and stumbling without subsequent striking against object, initial encounter; Y92.092 Bedroom in other non-institutional residence as the place of occurrence of the external cause | CPT/HCPCS: A0425; A0429 ==

== ENCOUNTER 2022-03-31 10:13 | Emergency (ER) | payer MEDICARE, OTHER ==
[2022-03-31] MEDS ORDERED: lidocaine 1% 20 ML MDV SUBQ ONE (11:20)
--- NOTE | 2022-03-31 13:54 | ED Physician Documentation ---
PD HPI LOWER EXT INJURY - Stated complaint Stated Complaint: SKIN TEAR - Chief complaint Chief Complaint: Laceration - History obtained from History obtained from: Patient, Family - History of Present Illness PD HPI LOW EXT INJURY LOCATION: Right, Lower leg Type of injury: Fall Where injury occurred: Home Timing - onset: Today Timing - duration: Minutes Timing - details: Abrupt onset, Still present Improved by: Rest Worsened by: Moving, Palpating Associated symptoms: No: Weakness, Numbness, Tingling, Swelling Contributing factors: No: Anticoagulated Similar symptoms before: Diagnosis (skin tear) Recently seen: Not recently seen - Additional information Additional information: Stephanie Titus is an 81-year-old female with COPD who is a resident of [facility] on 7 L of oxygen. This morning she was had her prescribed glass of wine and she had a fall resulting in a skin tear to her right knee and her left elbow. She did not have loss of consciousness with this fall did not strike her head. She presents now for suturing. She has had skin tears a number of times previously. Review of Systems Constitutional: denies: Fever Nose: denies: Congestion Throat: denies: Sore throat Respiratory: reports: Dyspnea, Cough (similar to always) GI: denies: Nausea, Vomiting Skin: reports: Laceration (s) Musculoskeletal: reports: Extremity pain. 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: Dilation and currettage, Hysterectomy Cardiovascular: Cardiac catheterization HEENT: Cataracts, Tonsil/Adenoidectomy, Other - Present Medications Home Medications: Ambulatory Orders Medication Instructions Recorded Confirmed Cholecalciferol (Vitamin D3) 2,000 units PO DAILY 02/04/17 12/07/21 [Vitamin D3] Mometasone/Formoterol [Dulera 100 2 puffs INH BID 02/04/17 12/07/21 Mcg-5 Mcg Inhaler] Escitalopram [Lexapro] 10 mg PO DAILY 02/19/17 12/07/21 Loperamide [Imodium] 2 - 4 mg PO PRN PRN MDD NTE 6 tabs 09/29/17 12/07/21 in 24 hours Ipratropium Imperial 2 sprays OMID Q8H 01/30/18 12/07/21 Diclofenac Sodium/Misoprostol 1 tab PO DAILY 09/29/18 12/07/21 [Diclofenac-Misoprost 50-0.2 mg] Lovastatin 40 mg PO QPM 09/29/18 12/07/21 Omeprazole 40 mg PO DAILY 09/29/18 12/07/21 Sildenafil Citrate 20 mg PO TID 09/29/18 12/07/21 Spironolactone 25 mg PO DAILY 09/29/18 12/07/21 Tiotropium Imperial [Spiriva 2 inh PO DAILY 09/29/18 12/07/21 Respimat] Potassium Chloride [K-Dur] 10 meq PO DAILY MDD with meals 12/10/18 12/07/21 Albuterol Sulfate [Proair 2 puffs PO Q4H PRN 04/03/19 12/07/21 Respiclick] Lidocaine Patch 5% [Lidoderm Patch] 1 patch TOP DAILY PRN MDD 16 04/03/19 12/07/21 Guaifenesin [Mucinex] 600 tab PO DAILY 07/01/19 12/07/21 Multivit-Min/FA/Lycopen/Lutein 1 tab PO DAILY 07/01/19 12/07/21 [Centrum Silver Men Tablet] Ambrisentan [Letairis] 10 mg DAILY 04/04/20 12/07/21 Fluticasone [Flonase] 1 spray OMID BID 04/04/20 12/07/21 predniSONE [Prednisone] 5 mg PO DAILY MDD no further taper 04/04/20 12/07/21 traZODone [Desyrel] 100 mg PO DAILY PM PRN 04/04/20 12/07/21 Diclofenac Sodium [Voltaren 4 mg PO BID MDD hands 08/05/20 12/07/21 Arthritis Pain] Ondansetron [Ondansetron Odt] 4 mg PO Q6HR PRN 08/05/20 12/07/21 Simethicone [Gas Relief] 125 mg PO QID PRN 08/05/20 12/07/21 diphenhydrAMINE [Benadryl] 25 - 50 mg PO DAILY PRN 08/05/20 12/07/21 Fexofenadine HCl 180 mg PO DAILY 10/16/20 12/07/21 Torsemide 20 mg PO DAILY 12/13/20 12/07/21 Triamcinolone 0.1% Cream [Kenalog 1 applic TOP BID PRN 12/13/20 12/07/21 0.1% Cream] traMADol [Ultram] 50 mg PO BID 12/13/20 12/07/21 Acetaminophen [Acetaminophen Extra 500 mg PO BID MDD 3000 mg 08/04/21 12/07/21 Strength] - Allergies Allergies/Adverse Reactions: Allergies Allergy/AdvReac Type Severity Reaction Status Date / Time cephalexin [From Keflex] Allergy Severe Unknown Verified 06/07/21 11:40 Sulfa (Sulfonamide Allergy Mild Rash Verified 06/07/21 11:40 Antibiotics) - Social History Does the pt smoke?: No Smoking Status: Never smoker Does the pt drink ETOH?: No Does the pt have substance abuse?: No - Immunizations Immunizations are current?: Yes - POLST Patient has POLST: Yes POLST Status: Full Code PD ED PE NORMAL - Vitals Vital signs reviewed: Yes (wide pulse pressure ) - General General: Alert and oriented X 3, No acute distress, Well developed/nourished, Other (pleasant 81 y/o female on oxygen is in no distress with a bloody left lower leg. ) - HEENT HEENT: Atraumatic, PERRL, EOMI - Respiratory Respiratory: No respiratory distress, Other (a periodic cough is present) - Derm Derm: Normal color, Warm and dry - Extremities Extremities: Other (below the patella there is a large skin tear 30cm total with multiple flaps retracted. The underlying facial layer has not been disturbed. ) - Neuro Neuro: Alert and oriented X 3, poultry cleaner 2-12 intact, No motor deficit, No sensory deficit, Normal speech Eye Opening: Spontaneous Motor: Obeys Commands Verbal: Oriented GCS Score: 15 - Psych Psych: Normal mood, Normal affect PD ED PE EXPANDED - Extremities BERNARDO LE visual: 1 - laceration 2 - laceration 3 - laceration 4 - laceration 5 - laceration 6 - laceration Results - Vitals Vitals: Vital Signs - 24 hr 03/31/22 03/31/22 10:18 14:00 Temperature 36.6 C 36.7 C Heart Rate 80 81 Respiratory 20 16 Rate Blood Pressure 116/58 L 135/57 H O2 Saturation 100 100 Oxygen O2 Source Room air Procedures - Laceration (location) right lower ext Length in cm: 30 Wound type: Irregular, Flap, Into subcut fat, Clean Neurovascular status: Sensory intact, Motor intact, Vascular intact Anesthesia: Lidocaine 1% (20ml) Wound preparation: Hibiclens, Irrigated copiously NS, Debrided moderately, Wound explored, To the base, Multiple flaps aligned Skin layer closure: Nylon, Interrupted, Size #-0 - enter number (4-0), Sutures - enter # (34) Other: Patient tolerated well, No complications, Neurovascular intact, Dressing applied, Tetanus UTD PD MEDICAL DECISION MAKING - ED course Complexity details: re-evaluated patient, considered differential, d/w patient, d/w family ED course: 81-year-old female with skin tears to the left elbow and right knee has a large skin tear to the right knee in an area of vascular compromise. There is a total of 30 cm of wound margin and this is in two flaps. The retracted skin is pulled over the wound and covers the wound entirely. The margins are sutured after cleansing. The wound to the left elbow was repaired with tincture benzoin and Steri-Strip. The patient tolerated all this quite well. I did indicate to the patient the poor vascular supply to the skin in this area and the likelihood this will take much longer to heal than usual. She is used to this as she has had a prior injury to her calf requiring extensive time for healing. Departure - Departure Disposition: 01 Home, Self Care Clinical Impression: Skin tear Condition: Stable Instructions: ED Laceration Ext Sutr Stap Tape Follow-Up: Heriberto Christopher MD [Provider Admit Priv/Credential] - Comments: Gwen, the wound you have to your right lower leg will take some time to heal. There are 34 sutures present and these will need to be removed in 10 days. Follow-up with your primary.
[2022-03-31 14:01] VITALS: BP 135/57
== END 2022-03-31 15:15 | disposition home or self-care (01) ==
LOC: EDUNIT# → ED 10:13
DX: S81.011A Laceration without foreign body, right knee, initial encounter (principal); S51.012A Laceration without foreign body of left elbow, initial encounter; W19.XXXA Unspecified fall, initial encounter; Y92.099 Unspecified place in other non-institutional residence as the place of occurrence of the external cause; J44.9 Chronic obstructive pulmonary disease, unspecified; Z99.81 Dependence on supplemental oxygen
CPT/HCPCS: 12006; 99283

== ENCOUNTER 2022-04-13 10:00 | Outpatient (CLI) | payer MEDICARE, OTHER ==
--- NOTE | 2022-04-13 19:06 | CONSULTATION NOTE ---
Palliative Care Follow Up - Referral Referring Provider: Dr. Christopher Time of Visit: Referral setting: Assisted living Referral Reason: Skin tear right LE/COPD/Rhinitis/Chronic Pain - Information Sources Records reviewed: Previous records reviewed History/Review of Systems obtained from: Patient Exam limitations: Clinical condition (worsening STM deficits) - History of Present Illness Update Brief HPI Update: This is an 81-year-old woman with severe COPD, progressive pulmonary hypertension, active alcoholism, chronic back pain, chronic left shoulder pain, multiple joint discomfort, rhinitis, and depression. She had sustained a wound on her right upper sanchez, after a fall, as well as her left elbow. She did not lose consciousness with this fall nor strike her head, but presented for suturing. Patient with worsening dyspnea, poor activity tolerance, weight loss of 12 pounds, since last visit. Patient appears quite frail, wound appears without signs or symptoms of infection, but skin flap is sloughing off, and stitches embedded in tissue unfortunately.They have been just cleaning it with normal saline, appears like a half-adorno, with tears extended on each side about 2 cm, area of wound bed is 3 x 5 cm, dark briones tissue, with fluid noted in between layers. Proximal end of tissue, is sloughing, revealing pink granulating tissue. Suspect going to be a significant lengthy time for it to heal. Patient has sustained an injury in fall 2 her right lower extremity sanchez, and this took several months to heal up too because of poor circulation and thinned skin. Patient reports her COPD/pulmonary hypertension continues to have increased shortness of breath, reports poor activity tolerance, and is spending more time sleeping in bed. She denies any increased cough, complaints of increased difficulty with her nose and nasal passages. Had been instructed to start her ipratropium more aggressively, seems to have forgotten him. We did test for the keep it moist with normal saline and the ipratropium from eyedrops most likely will swell. She does have a slight bedside. Patient continues with chronic back pain, patient had chosen to use wine up to 4 glasses daily, versus stronger opioids. She continues to stay within her allotment, she is quite distressed though currently as she has been exposed to COVID. She though is quite isolated usually, but is feeling more so given her "quarantine ". Past Medical History: Hypertension, centrilobular emphysema, end-stage COPD, chronic respiratory air on 60 L of oxygen, follow-up pulmonary fibrosis, diastolic CHF, hypertension, chronic pain, hyperlipidemia, history of iron deficiency anemia, history of thrombocytopenia, GERD, depression, anxiety, osteoarthritis, former smoker/100 pack years, alcoholism continue drink 4 glasses of wine daily and monitor his setting Social History - Living Situation Living arrangement: Assisted living Support System: Patient lives long-term at [facility], continues to have a shift with staff related to pain. She recently had a visit from her family, for Mother's. She also has 1 son and Sona who is history of cancer, so is immunocompromised. Medications/Allergies - Medications Home Medications: Ambulatory Orders Medication Instructions Recorded Confirmed Cholecalciferol (Vitamin D3) 2,000 units PO DAILY 02/04/17 04/13/22 [Vitamin D3] Mometasone/Formoterol [Dulera 100 2 puffs INH BID 02/04/17 04/13/22 Mcg-5 Mcg Inhaler] Escitalopram [Lexapro] 10 mg PO DAILY 02/19/17 04/13/22 Loperamide [Imodium] 2 - 4 mg PO PRN PRN MDD NTE 6 tabs 09/29/17 04/13/22 in 24 hours Ipratropium [place] 2 sprays OMID Q8H 01/30/18 04/13/22 Lovastatin 40 mg PO QPM 09/29/18 04/13/22 Omeprazole 40 mg PO DAILY 09/29/18 04/13/22 Sildenafil Citrate 20 mg PO TID 09/29/18 04/13/22 Spironolactone 25 mg PO DAILY 09/29/18 04/13/22 Tiotropium [place] [Spiriva 2 inh PO DAILY 09/29/18 04/13/22 Respimat] Potassium Chloride [K-Dur] 10 meq PO DAILY MDD with meals 12/10/18 04/13/22 Albuterol Sulfate [Proair 2 puffs PO Q4H PRN 04/03/19 04/13/22 Respiclick] Lidocaine Patch 5% [Lidoderm Patch] 1 patch TOP DAILY PRN MDD 16 04/03/19 04/13/22 Guaifenesin [Mucinex] 600 tab PO DAILY 07/01/19 04/13/22 Multivit-Min/FA/Lycopen/Lutein 1 tab PO DAILY 07/01/19 04/13/22 [Centrum Silver Men Tablet] Ambrisentan [Letairis] 10 mg PO DAILY 04/04/20 04/13/22 Fluticasone [Flonase] 1 spray OMID BID 04/04/20 04/13/22 predniSONE [Prednisone] 5 mg PO DAILY MDD no further taper 04/04/20 04/13/22 traZODone [Desyrel] 100 mg PO DAILY PM PRN 04/04/20 04/13/22 Diclofenac Sodium [Voltaren 4 mg PO BID MDD hands 08/05/20 04/13/22 Arthritis Pain] Ondansetron [Ondansetron Odt] 4 mg PO Q6HR PRN 08/05/20 04/13/22 Simethicone [Gas Relief] 125 mg PO QID PRN 08/05/20 04/13/22 diphenhydrAMINE [Benadryl] 25 - 50 mg PO DAILY PRN 08/05/20 04/13/22 Fexofenadine HCl 180 mg PO DAILY 10/16/20 04/13/22 Torsemide 20 mg PO DAILY 12/13/20 04/13/22 Triamcinolone 0.1% Cream [Kenalog 1 applic TOP BID PRN 12/13/20 04/13/22 0.1% Cream] traMADol [Ultram] 50 mg PO TID 12/13/20 04/13/22 Acetaminophen [Acetaminophen Extra 500 mg PO BID MDD 3000 mg 08/04/21 04/13/22 Strength] Docusate Sodium 100Mg Capsule 100 mg PO DAILY 04/13/22 04/13/22 [Colace 100Mg Capsule] - Allergies Allergies/Adverse Reactions: Allergies Allergy/AdvReac Type Severity Reaction Status Date / Time cephalexin [From Keflex] Allergy Severe Unknown Verified 06/07/21 11:40 Sulfa (Sulfonamide Allergy Mild Rash Verified 06/07/21 11:40 Antibiotics) Review of Systems - Constitutional Constitutional: reports: Fatigue (reports sleeps most of the time), Weakness, Weight loss (108). denies: Fever, Chills - Eyes Eyes: reports: Blurred vision (Patient reports she is having increased difficulty with her vision has not follow up with opthalmology), Vision loss, Corrective lenses (got new RX; now unhappy about fitting) - Ears, Nose & Throat Ears, Nose & Throat: reports: Nasal congestion (using flonase; has bottle of ipratropium nasal spray; ordered new RX and inst to use TID at bedside had not followed through or remembered), Postnasal drainage (clear), Dry mouth, Other (reports picks out large hard dried "buggers" or can't breath) - Cardiovascular Cardiovascular: reports: Palpitations, Exertional dyspnea, Decr. exercise tolerance. denies: Edema - Respiratory Respiratory: reports: Cough, Sputum production (clear), SOB at rest, SOB with exertion. denies: Wheezing (not using albuterol any more; radio personality told her probably wasn't helping; hasn't missed it no increaes in wheezing) - Gastrointestinal Gastrointestinal: reports: Reflux/heartburn (intermittent), Early satiety. denies: Diarrhea (uses loperamide daily) - Genitourinary Genitourinary: reports: Frequency - Musculoskeletal Musculoskeletal: reports: Back pain, Muscle aches (LE), Stiffness, Limited range of motion, Muscle weakness, Joint pain (identifies SI joint area of worsening pain; left shoulder; now multiple joint discomforts), Assistive devices (uses walker in apartment; wheelchair to go to dining room; feels balance is worsening), Other (working with PT) - Integumentary Integumentary: reports: Dryness - Neurological Neurological: reports: General weakness, Numbness (left leg), Abnormal gait - Psychiatric Psychiatric: reports: Depression, Anxiety - Endocrine Endocrine: reports: Intolerance to heat - Hematologic/Lymphatic Hematologic/Lymph: reports: Bruising (extensive bruising in LE; skin thinned) - All Other Systems All Other Systems: reports: Reviewed and negative Physical Exam - Vital Signs Temperature: 97.8 C Pulse Rate: 78 Respiratory Rate: 20 O2 Saturation: 99 (7 liters) Blood Pressure: 118/82 - Physical Exam General Appearance: positive: Alert, Moderate distress (more worried about covid exposure than fall/wound) Eyes Bilateral: positive: Normal inspection ENT: positive: No signs of dehydration Neck: positive: Trachea midline. negative: Lymphadenopathy (R), Lymphadenopathy (L) Cardiovascular: positive: Regular rate & rhythm Respiratory: positive: Diminished throughout. negative: No respiratory distress (respiratory effort with activity noted), Wheezes Abdomen: positive: Soft, Other (rounded) Skin: positive: Pallor, Dryness, Wound (see HPI) Extremities: positive: No pedal edema Neurologic/Psychiatric: positive: Oriented x3, Weakness, Depressed mood/affect, Flat affect Palliative Care - POLST Patient has POLST: Yes POLST Status: DNR, Selective Treatment Pain: Pain worsening, Location (back and legs; PT has helped) Tiredness/Fatigue: Severe (7-10) Drowsiness/Sedation: Moderate (4-6) Nausea: Mild (1-3) Anorexia: Moderate (4-6), Weight loss (dislikes food) Dyspnea: Severe (7-10) Depression: Moderate (4-6) Anxiety: Mild (1-3) Feelings of wellbeing/Perceived Quality of Life: Poor, Worsening Sleep: Variable sleep pattern Constipation: Yes, Intermittent constipation Performance Status: Patient continues with functional decline, lives persistently tolerance. This is bathing, she takes about 2 diagnoses as per meals which is ambulate short distances in her room. Status post repeat to keep her mobility up, most recently with fall, unfortunately will need to be discharged as well transition over to home health.WAs getting services from in house PT - Palliative Care Discussion: Patient continues to be unhappy, and does not perceive much quality of life and her current situation. Does fluctuate as far as depression and anxiety, as before more frequent fall. She did enjoy her Mother's Day, stays in touch with her family but for the most part is fairly isolated very pleasant as friends and contact with the outside world. Have not seen patient for quite a while, looks much more frail. She is very distressed in the context of recent COVID expos ure, as now is quarantining. Impression and Recommendations - Palliative Care Impression: This is a fragile 81-year-old woman with advanced COPD, pulmonary hypertension, active alcoholism, chronic pain and declining quality of life. Patient sustained a severe skin tear on 03/31, skin flap/tissue appears to be nonviable, and sloughing. Patient with any signs or symptoms of infection currently, partially removed sutures, others are embedded and tissue, will attempt in 1 week for further suture removal. Given the complexity of her wound, will initiate home health care services. Palliative care will follow secondary to patient's fragile status and difficulty getting out. Recommendations/Counseling Done: 1. Right lower extremity skin tear. Patient presents with worsening deterioration of skin flap, currently without signs and symptoms of infection, most likely will slough off. Patient will need more frequent wound care, and skin care products. We will make referral to home health. Sutures removed on upper edges of well approximated healed component, every other stitch removed on other nonviable tissue, unfortunately skin continues to slough and appears briones without any viable tissue. At proximal and area of slough, that does show granulating tissue underneath. We will continue to monitor and leave superficial flap on hoping the skin will fill in underneath. Patient with poor tissue integrity, had circulation, I did prepare patient for wound looking worse before better, high risk for infection, and need for more intensive wound care. 2. Rhinitis. Patient continues with complaints of nasal congestion, solid dried drainage, and needing to "pick" it out, small amounts of bleeding. She has been using Flonase. Did replace bottle of ipratropium bromide, encouraged to use this, patient verbalized understanding. 3. Pulmonary hypertension. Patient continues with worsening dyspnea, has had no acute infections, though was recently was exposed to COVID, currently testing negative. Patient is in quarantine. 4. Depression. This is a situation now and multifactorial, patient continues to have increased dissatisfaction with current quality of life, but has minimal other options. She is fearful of finances, she does continue to drink, continues to press for increased alcohol. Patient now has had another fall, most likely alcohol added to her risk factor. Patient has very little insight into this. 5. Advanced care planning. Patient does have a POLST with DN AR/DNI and selective treatments. Patient continues with multiple morbidities, would be significant only at risk if contracted COVID-19. They are monitoring her closely. Patient currently without any signs or symptoms. She does have multiple comorbidities and remains at high risk for falls and sequela for further decline. [id number]. Patient is homebound, it is taxing considerable effort for patient to leave the home, she does need assistance with wheelchair and high flow oxygen, she is ambulatory for only short distances and fatigues easily. She has severe dyspnea and activity intolerance. Patient requires nursing for wound care, most likely wound is to slough, would recommend at this point wash with normal saline, placed nonadherent dressing or foam over open area, and secure with wrap, avoiding tape on skin. May use antibacterial such as silver or iodine Xerofoam, plan for provider to revisit on and remove rest of stitches. My understanding is [facility] will initiate care on Saturday.Facility will continue to monitor and change dressing daily with just Telfa pad in the meantime. 45 minutes including 50% of this time in counseling regarding pain and symptom management, coordination of care regarding wound care and facility, and [facility].
== END 2022-04-13 10:01 | disposition home or self-care (01) ==
LOC: PC 10:00
PROVIDERS: ATTEND Nurse Practitioner Adult Health
DX: Z51.5 Encounter for palliative care (principal); S81.811D Laceration without foreign body, right lower leg, subsequent encounter; J44.9 Chronic obstructive pulmonary disease, unspecified; I27.20 Pulmonary hypertension, unspecified; F10.20 Alcohol dependence, uncomplicated; G89.29 Other chronic pain; R63.4 Abnormal weight loss; F32.A Depression, unspecified; J31.0 Chronic rhinitis; Z79.899 Other long term (current) drug therapy; Z79.891 Long term (current) use of opiate analgesic; Z79.51 Long term (current) use of inhaled steroids; Z79.52 Long term (current) use of systemic steroids; Z87.891 Personal history of nicotine dependence; Z99.81 Dependence on supplemental oxygen; Z20.822 Contact with and (suspected) exposure to COVID-19; Z66 Do not resuscitate; Z91.81 History of falling; Z60.8 Other problems related to social environment

== ENCOUNTER 2022-04-19 12:05 | Outpatient (CLI) | payer MEDICARE, OTHER ==
--- NOTE | 2022-04-19 16:10 | CONSULTATION NOTE ---
Palliative Care Follow Up - Referral Referring Provider: Dr. Christopher Time of Visit: Referral setting: Assisted living Referral Reason: RLE wound/Cellulitis/COPD - Information Sources Records reviewed: RN notes reviewed History/Review of Systems obtained from: Patient Exam limitations: No limitations - History of Present Illness Update Brief HPI Update: Please see visit note 04/13/22 more detailed history of fall This is an 81-year-old woman with severe COPD, progressive pulmonary hypertension, active alcoholism, chronic back pain, chronic left shoulder pain, multiple joint discomfort, rhinitis and depression. She had a ground-level fall and sustained wound on her right upper sanchez, as well as her left elbow. She was seen in the ED with a attempt to salvage the skin flap, seen last week but because of swelling and fragile skin, as well as deterioration of skin flap only able to remove half of the stitches. Skin flap does appear to be deteriorating, underneath is filling in, minimal drainage. Home health nursing is been initiated through [facility], they will be coming 3 times a week. Patient has poor lower extremity circulation, very thin skin and she is somewhat cachectic. She does demonstrate some concern for cellulitis on the distal part of the periwound, measuring down about 3 to 4 cm x 3 cm wide, is tender, particularly on the 4-6 o'clock area of the half-adorno oval-shaped of the skin flap. Was able to remove remainder of stitches with very little bleeding. Given the poor integrity of the skin flap unable to Steri-Strip, but area Steri- Stripped previously in half adorno shape on either side of the skin flap, edges have approximated. Past Medical History: Hypertension, centrilobular emphysema, end-stage COPD, Chronic respiratory failure on 6 L of oxygen, pulmonary fibrosis, diastolic CHF, chronic pain syndrome, hyperlipidemia, history of iron deficiency anemia, history of thrombocytopenia, GERD, depression, anxiety, osteoarthritis, former smoker/100 pack years, active alcoholism, allotted 4 glasses wine daily Social History - Living Situation Living arrangement: Assisted living Support System: Patient long-term resident at [facility], continues with tension with staff. She recently had a visit from her family for Mother's Day. She has 1 son in [place] and 1 in [facility]. 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 Medications/Allergies - Medications Home Medications: Ambulatory Orders Medication Instructions Recorded Confirmed Cholecalciferol (Vitamin D3) 2,000 units PO DAILY 02/04/17 04/13/22 [Vitamin D3] Mometasone/Formoterol [Dulera 100 2 puffs INH BID 02/04/17 04/13/22 Mcg-5 Mcg Inhaler] Escitalopram [Lexapro] 10 mg PO DAILY 02/19/17 04/13/22 Loperamide [Imodium] 2 - 4 mg PO PRN PRN MDD NTE 6 tabs 09/29/17 04/13/22 in 24 hours Ipratropium [place] 2 sprays OMID Q8H 01/30/18 04/13/22 Lovastatin 40 mg PO QPM 09/29/18 04/13/22 Omeprazole 40 mg PO DAILY 09/29/18 04/13/22 Sildenafil Citrate 20 mg PO TID 09/29/18 04/13/22 Spironolactone 25 mg PO DAILY 09/29/18 04/13/22 Tiotropium [place] [Spiriva 2 inh PO DAILY 09/29/18 04/13/22 Respimat] Potassium Chloride [K-Dur] 10 meq PO DAILY MDD with meals 12/10/18 04/13/22 Albuterol Sulfate [Proair 2 puffs PO Q4H PRN 04/03/19 04/13/22 Respiclick] Lidocaine Patch 5% [Lidoderm Patch] 1 patch TOP DAILY PRN MDD 16 04/03/19 04/13/22 Guaifenesin [Mucinex] 600 tab PO DAILY 07/01/19 04/13/22 Multivit-Min/FA/Lycopen/Lutein 1 tab PO DAILY 07/01/19 04/13/22 [Centrum Silver Men Tablet] Ambrisentan [Letairis] 10 mg PO DAILY 04/04/20 04/13/22 Fluticasone [Flonase] 1 spray OMID BID 04/04/20 04/13/22 predniSONE [Prednisone] 5 mg PO DAILY MDD no further taper 04/04/20 04/13/22 traZODone [Desyrel] 100 mg PO DAILY PM PRN 04/04/20 04/13/22 Diclofenac Sodium [Voltaren 4 mg PO BID MDD hands 08/05/20 04/13/22 Arthritis Pain] Ondansetron [Ondansetron Odt] 4 mg PO Q6HR PRN 08/05/20 04/13/22 Simethicone [Gas Relief] 125 mg PO QID PRN 08/05/20 04/13/22 diphenhydrAMINE [Benadryl] 25 - 50 mg PO DAILY PRN 08/05/20 04/13/22 Fexofenadine HCl 180 mg PO DAILY 10/16/20 04/13/22 Torsemide 20 mg PO DAILY 12/13/20 04/13/22 Triamcinolone 0.1% Cream [Kenalog 1 applic TOP BID PRN 12/13/20 04/13/22 0.1% Cream] traMADol [Ultram] 50 mg PO TID 12/13/20 04/13/22 Acetaminophen [Acetaminophen Extra 500 mg PO BID MDD 3000 mg 08/04/21 04/13/22 Strength] Docusate Sodium 100Mg Capsule 100 mg PO DAILY 04/13/22 04/13/22 [Colace 100Mg Capsule] - Allergies Allergies/Adverse Reactions: Allergies Allergy/AdvReac Type Severity Reaction Status Date / Time cephalexin [From Keflex] Allergy Severe Unknown Verified 06/07/21 11:40 Sulfa (Sulfonamide Allergy Mild Rash Verified 06/07/21 11:40 Antibiotics) Review of Systems - Constitutional Constitutional: reports: Fatigue (reports sleeps most of the time), Weakness, Weight loss (108). denies: Fever, Chills - Eyes Eyes: reports: Blurred vision (Patient reports she is having increased difficulty with her vision has not follow up with opthalmology), Vision loss, Corrective lenses (got new RX; now unhappy about fitting) - Ears, Nose & Throat Ears, Nose & Throat: reports: Nasal congestion (using flonase; has bottle of ipratropium nasal spray; ordered new RX and inst to use TID at bedside had not followed through or remembered), Postnasal drainage (clear), Dry mouth - Cardiovascular Cardiovascular: reports: Palpitations, Exertional dyspnea, Decr. exercise tolerance. denies: Edema - Respiratory Respiratory: reports: Cough, Sputum production (clear), SOB at rest, SOB with exertion. denies: Wheezing (not using albuterol any more; occupational therapy manager told her probably wasn't helping; hasn't missed it no increaes in wheezing) - Gastrointestinal Gastrointestinal: reports: Reflux/heartburn (intermittent), Early satiety. denies: Diarrhea (uses loperamide daily) - Genitourinary Genitourinary: reports: Frequency - Musculoskeletal Musculoskeletal: reports: Back pain, Muscle aches (LE), Stiffness, Limited range of motion, Muscle weakness, Joint pain (identifies SI joint area of worsening p ain; left shoulder; now multiple joint discomforts), Assistive devices (uses walker in apartment; wheelchair to go to dining room; feels balance is worsening), Other (working with PT, not happy about transition to PT) - Integumentary Integumentary: reports: Dryness - Neurological Neurological: reports: General weakness, Numbness (left leg), Abnormal gait - Psychiatric Psychiatric: reports: Depression, Anxiety - Endocrine Endocrine: reports: Intolerance to heat - Hematologic/Lymphatic Hematologic/Lymph: reports: Bruising (extensive bruising in LE; skin thinned) - All Other Systems All Other Systems: reports: Reviewed and negative Physical Exam - Physical Exam General Appearance: positive: No acute distress, Alert Eyes Bilateral: positive: Normal inspection ENT: positive: No signs of dehydration Neck: positive: Trachea midline. negative: Lymphadenopathy (R), Lymphadenopathy (L) Cardiovascular: positive: Regular rate & rhythm Respiratory: positive: Diminished throughout. negative: No respiratory distress (respiratory effort with activity noted), Wheezes Abdomen: positive: Soft, Other (rounded) Skin: positive: Pallor, Dryness, Wound (see HPI) Extremities: positive: No pedal edema Neurologic/Psychiatric: positive: Oriented x3, Weakness, Depressed mood/affect, Flat affect Palliative Care - POLST Patient has POLST: Yes POLST Status: DNR, Selective Treatment Pain: Pain unchanged Feelings of wellbeing/Perceived Quality of Life: Fair, Acceptable, Worsening Sleep: Sleeps well Constipation: No Performance Status: Patient continues with functional decline, ambulating short distances, is trying to stay independent in toileting, does need assistance with bathing and lower extremity dressing. - Palliative Care Discussion: Patient expresses surprise that she is still here, understand her limited life expectancy at this point she still perceives her quality of life is tolerable but continues to decline. She continues to have somewhat limited life, with recent loss of friend, feeling more vulnerable as she is with minimal community support. She does stay in touch with her family, but is unable to see them on a regular basis. Impression and Recommendations - Palliative Care Impression: This is a fragile 81-year-old woman with advanced COPD, pulmonary hypertension, active alcoholism, chronic pain and declining quality of life. Patient sustained a severe skin tear on 03/31, wound appears with continued deterioration of skin flap. Patient does demonstrate symptoms of cellulitis, will go ahead and treat given patient's poor circulation and risk for further wound deterioration. Was able to remove rest of sutures. Patient given the complexity of her wound has been initiated with home health services. Palliative care will continue to follow secondary to patient's fragile status and difficulty getting out. Recommendations/Counseling Done: 1. Right lower extremity skin tear. Patient continues with worsening deterioration of skin flap, does today present with symptoms of cellulitis. We will go ahead and treat with doxycycline 100 mg twice daily for 7 days, patient does not tolerate antibiotics well. Hopefully this will assist with wound healing and cleared quickly. Did remove rest of sutures, does appear to have granulating tissue underneath skin flap. Suspect will continue to slough. Patient is receiving home health care now 3 times a week, current dressing including Xeroform applied to the area to keep it moist, does appear to have granulating tissue underneath skin. 2. Depression. This is multifactorial, patient continues to dissatisfaction with current quality of life, minimal social support and isolation. Patient most likely will benefit from increased interaction with home health team, will continue to monitor. 3. Advance care planning. Patient does have POLST with DN AR/DNI and selective treatments. Patient continues with multiple core morbidities. She is off quarantine had had COVID exposure. Patient continues with high risk for falls and sequela for further decline, palliative care to continue to follow and define goals of care as status changes. 45 minutes with greater than 50% of this time management Home health and assisted-living care staff, counseling for depression and anticipatory guidance
== END 2022-04-19 12:06 | disposition home or self-care (01) ==
LOC: PC 12:05
PROVIDERS: ATTEND Nurse Practitioner Adult Health
DX: Z51.5 Encounter for palliative care (principal); S81.811A Laceration without foreign body, right lower leg, initial encounter; L03.115 Cellulitis of right lower limb; W18.30XA Fall on same level, unspecified, initial encounter; F32.A Depression, unspecified; Z87.891 Personal history of nicotine dependence; Z66 Do not resuscitate

== ENCOUNTER 2022-06-06 09:19 | Outpatient (CLI) | payer MEDICARE, OTHER ==
[2022-06-06 11:47] LABS: BASOPHILS % (AUTO) 0.4 %; EOSINOPHILS % (AUTO) 0.5 %; HCT - HEMATOCRIT 35.8 % (37.0-47.0); HGB - HEMOGLOBIN 11.6 g/dL (12.0-16.0); LYMPHOCYTES # (AUTO) 0.5 10^3/uL (1.5-3.5); LYMPHOCYTES % (AUTO) 6.1 %; MEAN CORPUSCULAR HGB CONC 32.4 g/dL (32.0-36.0); MEAN PLATELET VOLUME 9.6 fL (7.9-10.8); MONOCYTES # (AUTO) 0.6 10^3/uL (0.0-1.0); MONOCYTES % (AUTO) 7.3 %; NEUTROPHILS % (AUTO) 85.1 %; PLT - PLATELET COUNT 227 10^3/uL (130-450); RED BLOOD COUNT 3.51 10^6/uL (4.20-5.40); RED CELL DISTRIBUTION WIDTH 12.7 % (12.0-15.0); WHITE BLOOD COUNT 8.2 x10^3/uL (4.8-10.8)
[2022-06-06 12:06] LABS: ALBUMIN 4.4 g/dL (3.2-5.5); ALBUMIN/GLOBULIN RATIO 1.4 (1.0-2.2); ALKALINE PHOSPHATASE 35 IU/L (42-121); ALT ALANINE AMINOTRANSFERASE 13 IU/L (10-60); AST ASPARTATE AMINOTRANSFERASE 20 IU/L (10-42); BILIRUBIN,TOTAL 0.6 mg/dL (0.2-1.0); BUN - BLOOD UREA NITROGEN 26 mg/dL (6-20); CALCIUM 9.9 mg/dL (8.5-10.3); CARBON DIOXIDE - CO2 32 mmol/L (21-32); CHLORIDE 92 mmol/L (101-111); CHOL/HDL RATIO 2.1 (<4.4); CHOLESTEROL 211 mg/dL; CREATININE 1.1 mg/dL (0.4-1.0); GFR - MDRD 48 (>89); GLUCOSE 105 mg/dL (70-100); HDL CHOLESTEROL 101 mg/dL; LDL CHOLESTEROL,CALCULATED 90 mg/dL; LDL/HDL RATIO 0.9 (<4.4); POTASSIUM 4.1 mmol/L (3.5-5.0); SODIUM 135 mmol/L (135-145); TOTAL PROTEIN 7.5 g/dL (6.7-8.2); TRIGLYCERIDES 101 mg/dL; VLDL CHOLESTEROL 20 mg/dL
[2022-06-06 12:13] LABS: THYROID STIMULATING HORMONE 13.75 uIU/mL (0.34-5.60)
[2022-06-06 12:52] LABS: ESTIMATED AVERAGE GLUCOSE 97 mg/dL (70-100)
[2022-06-06 13:12] LABS: FREE T4 (FREE THYROXINE) 0.65 ng/dL (0.58-1.64)
== END 2022-06-06 09:20 | disposition home or self-care (01) ==
LOC: LAB.N 09:19
PROVIDERS: ATTEND Family Medicine
DX: I10 Essential (primary) hypertension (principal); J96.10 Chronic respiratory failure, unspecified whether with hypoxia or hypercapnia; I27.21 Secondary pulmonary arterial hypertension; J84.10 Pulmonary fibrosis, unspecified; D69.6 Thrombocytopenia, unspecified; E78.5 Hyperlipidemia, unspecified; R73.01 Impaired fasting glucose; K58.9 Irritable bowel syndrome, unspecified; N39.41 Urge incontinence; F32.A Depression, unspecified
CPT/HCPCS: 36415; 80053; 80061; 83036; 83721; 84439; 84443; 85025

== ENCOUNTER 2022-09-03 11:23 | Outpatient (CLI) | payer MEDICARE, OTHER ==
[2022-09-03 18:18] LABS: CALCIUM 9.3 mg/dL (8.5-10.3); CREATININE 0.9 mg/dL (0.4-1.0); POTASSIUM 3.9 mmol/L (3.5-5.0)
[2022-09-03 18:32] LABS: FREE T3 2.6 pg/mL (2.5-3.9)
[2022-09-03 18:33] LABS: FREE T4 (FREE THYROXINE) 0.9 ng/dL (0.58-1.64); THYROID STIMULATING HORMONE 1.06 uIU/mL (0.34-5.60)
== END 2022-09-03 11:24 | disposition home or self-care (01) ==
LOC: LAB.N 11:23
PROVIDERS: ATTEND Family Medicine
DX: I10 Essential (primary) hypertension (principal); E03.9 Hypothyroidism, unspecified; J96.10 Chronic respiratory failure, unspecified whether with hypoxia or hypercapnia; I27.21 Secondary pulmonary arterial hypertension
CPT/HCPCS: 36415; 80048; 84439; 84443; 84481

== ENCOUNTER 2022-09-06 10:13 | Outpatient (CLI) | payer MEDICARE, OTHER | END 2022-09-06 10:14 | disposition critical access hospital (66) | LOC: EMS 10:13 | DX: S01.111A Laceration without foreign body of right eyelid and periocular area, initial encounter (principal); S51.012A Laceration without foreign body of left elbow, initial encounter; W18.30XA Fall on same level, unspecified, initial encounter; Y92.091 Bathroom in other non-institutional residence as the place of occurrence of the external cause | CPT/HCPCS: A0425; A0429 ==

== ENCOUNTER 2022-09-06 10:31 | Emergency (ER) | payer MEDICARE, OTHER ==
[2022-09-06 10:46] VITALS: BP 136/69
--- NOTE | 2022-09-06 11:24 | XRAY Report ---
PROCEDURE: Pelvis 1 View INDICATIONS: glf, pain. TECHNIQUE: 1 view(s) of the pelvis acquired. COMPARISON: None. FINDINGS: Bones: No fractures or dislocations. No suspicious bony lesions. Soft tissues: Visualized bowel gas pattern is normal. No suspicious soft tissue calcifications. IMPRESSION: No visualized acute fracture or dislocation. However, occult injury cannot be excluded. Recommend short interval imaging follow-up in 7-10 days as clinically indicated for additional evalua tion. Reviewed by: Pippa Baptiste MD on 09/06/2022 11:23 AM PDT Approved by: Pippa Baptiste MD on 09/06/2022 11:23 AM PDT Station ID: [id number]
--- NOTE | 2022-09-06 11:24 | XRAY Report ---
PROCEDURE: Knee 2 View BILAT INDICATIONS: glf, pain, bruising TECHNIQUE: 2 views of the bilateral knee(s) were acquired. COMPARISON: X-ray left knee 07/02/2019 FINDINGS: Bones: No fractures or dislocations. No suspicious bony lesions. There is moderate bilateral media l compartment narrowing, relatively stable since 2019 on the left. There is minimal lateral compartme nt narrowing as well as moderate patellofemoral compartment narrowing bilaterally. No erosions are id entified. Soft tissues: No joint effusion. No suspicious soft tissue calcifications. IMPRESSION: No visualized acute fracture or dislocation. However, occult injury cannot be excluded. Recommend maris rt interval imaging follow-up in 7-10 days as clinically indicated for additional evaluation. Tricompartmental arthritic changes above. Reviewed by: Pippa Baptiste MD on 09/06/2022 11:23 AM PDT Approved by: Pippa Baptiste MD on 09/06/2022 11:23 AM PDT Station ID: [id number]
--- NOTE | 2022-09-06 11:27 | CT Report ---
PROCEDURE: HEAD WO INDICATIONS: glf, pain, bruising TECHNIQUE: Noncontrast 4.5 mm thick angled axial sections acquired from the foramen magnum to the vertex. For r adiation dose reduction, the following was used: automated exposure control, adjustment of mA and/or kV according to patient size. COMPARISON: None. FINDINGS: Image quality: Excellent. CSF spaces: Basal cisterns are patent. No extra-axial fluid collections. Ventricles are normal in size and shape. Brain: No midline shift. No intracranial masses or hemorrhage. Banegas-white matter interface is norm al. Age-related volume loss and small vessel ischemic change. Skull and face: Calvarium and visualized facial bones are intact, without suspicious lesions. Sinuses: Visualized sinuses and mastoids are clear. IMPRESSION: No evidence acute intracranial abnormality in the setting of acute trauma. Reviewed by: Ángel Keita MD on 09/06/2022 11:26 AM PDT Approved by: Ángel Keita MD on 09/06/2022 11:26 AM PDT Station ID: [id number]
--- NOTE | 2022-09-06 11:32 | CT Report ---
PROCEDURE: CERVICAL SPINE WO INDICATIONS: glf, pain TECHNIQUE: Noncontrast 3 mm thick sections acquired from the skull base to the T4 level. Sagittal and coronal r eformats were then constructed. For radiation dose reduction, the following was used: automated exp osure control, adjustment of mA and/or kV according to patient size. COMPARISON: None. FINDINGS: Image quality: Excellent. Bones: No fractures or dislocations. Advanced cervical spondylitic change. Multilevel facet arthrop athy. Interbody fusion of C4-C5. Visualized superior ribs are intact. Soft tissues: Prevertebral soft tissues are normal in thickness. No paravertebral hematomas. No ap ical pneumothoraces. Severe apical emphysematous change. Chronic calcific pleural parenchymal scarri ng, left apex. IMPRESSION: No evidence acute bony abnormality of the cervical spine. Advanced cervical spondylitic change. COPD. Reviewed by: Ángel Keita MD on 09/06/2022 11:31 AM PDT Approved by: Ángel Keita MD on 09/06/2022 11:31 AM PDT Station ID: [id number]
--- NOTE | 2022-09-06 11:42 | CT Report ---
PROCEDURE: MAXILLOFACIAL WO INDICATIONS: glf, pain, periorobital hematoma TECHNIQUE: Noncontrast 1.5 mm thick axial images acquired from the mandible through the frontal sinuses, with co nayeli and sagittal reformatting. For radiation dose reduction, the following was used: automated ex posure control, adjustment of mA and/or kV according to patient size. COMPARISON: None. FINDINGS: Image quality: Excellent. Bones and teeth: Comminuted fracture of the medial wall of the right orbit. Sinus rodrigues show no fract ure or deformity. A comminuted nasal bone fracture may be chronic. Suggest clinical correlation. Sign ificant rightward nasal septal deviation. Visualized portions of the mandible demonstrate no fracture s or subluxation. Zygomatic arches are intact. Pterygoid plates are intact. Visualized portions of the skull base and auditory canals are intact. Sinuses: Patchy opacification of the right ethmoids in association with a medial wall right orbital fracture. Paranasal sinuses are otherwise aerated, without fluid levels, mucosal thickening, or mucoc eles. Significant rightward nasal septal deviation. Mastoid air cells are aerated. Soft tissues: Right periorbital hematoma. Right globe intact. No edema, masses, or fluid collections . No enlarged lymph nodes. No soft tissue lacerations or debris. Vascular: Visualized vascular structures appear normal in the absence of contrast. Bony vascular fo ramina and canals are intact. IMPRESSION: 1. Right periorbital hematoma, right globe intact, medial wall right orbital fracture. 2. Significant rightward nasal septal deviation. 3. Comminuted nasal bone fracture may be chronic. Reviewed by: Ángel Keita MD on 09/06/2022 11:41 AM PDT Approved by: Ángel Keita MD on 09/06/2022 11:41 AM PDT Station ID: [id number]
--- NOTE | 2022-09-06 12:21 | ED Physician Documentation ---
History of Present Illness - Stated complaint Stated Complaint: UNWITNESSED FALL - Chief complaint Chief Complaint: Trauma Hd/Nk - History obtained from History obtained from: Patient - History of Present Illness Timing: Prior to arrival - Additonal information Additional information: 81-year-old female with history of dementia, chronic hypoxemic respiratory fa ilure on 6 L O2 presents by EMS from her assisted living facility for an unwitnessed fall. Patient was given her morning medications at approximately 730 and when they checked on her shortly afterwards they found her on the ground in the bathroom. Patient does not remember the incident. She is not on any blood thinners. Patient was noted to have a laceration above her right eyebrow and significant swelling around her right eye and she was transferred for evaluation. Patient has a history of frequent falls. EMS was told by nursing staff that the patient is at her mental baseline When patient asked if she is in any pain she says "yes, everywhere" Review of Systems Unable to obtain: Dementia Skin: reports: Laceration (s), Other (bruising, extensive) PD PAST MEDICAL HISTORY - Past Medical History Cardiovascular: Congestive heart failure, High cholesterol Respiratory: COPD, Pneumonia, Shortness of breath, Other Neuro: Headaches Endocrine/Autoimmune: None GI: GERD : Incontinence, Frequency HEENT: Chronic sinusitis Psych: Depression, Anxiety Musculoskeletal: Osteoarthritis, Chronic back pain, Other Derm: None - Past Surgical History Past Surgical History: Yes General: 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 /[employer]: Dilation and currettage, Hysterectomy Cardiovascular: Cardiac catheterization HEENT: Cataracts, Tonsil/Adenoidectomy, Other - Present Medications Home Medications: Ambulatory Orders Medication Instructions Recorded Confirmed Cholecalciferol (Vitamin D3) 2,000 units PO DAILY 02/04/17 04/13/22 [Vitamin D3] Mometasone/Formoterol [Dulera 100 2 puffs INH BID 02/04/17 04/13/22 Mcg-5 Mcg Inhaler] Escitalopram [Lexapro] 10 mg PO DAILY 02/19/17 04/13/22 Loperamide [Imodium] 2 - 4 mg PO PRN PRN MDD NTE 6 tabs 09/29/17 04/13/22 in 24 hours Ipratropium Bock 2 sprays OMID Q8H 01/30/18 04/13/22 Lovastatin 40 mg PO QPM 09/29/18 04/13/22 Omeprazole 40 mg PO DAILY 09/29/18 04/13/22 Sildenafil Citrate 20 mg PO TID 09/29/18 04/13/22 Spironolactone 25 mg PO DAILY 09/29/18 04/13/22 Tiotropium Bock [Spiriva 2 inh PO DAILY 09/29/18 04/13/22 Respimat] Potassium Chloride [K-Dur] 10 meq PO DAILY MDD with meals 12/10/18 04/13/22 Albuterol Sulfate [Proair 2 puffs PO Q4H PRN 04/03/19 04/13/22 Respiclick] Lidocaine Patch 5% [Lidoderm Patch] 1 patch TOP DAILY PRN MDD 16 04/03/19 04/13/22 Guaifenesin [Mucinex] 600 tab PO DAILY 07/01/19 04/13/22 Multivit-Min/FA/Lycopen/Lutein 1 tab PO DAILY 07/01/19 04/13/22 [Centrum Silver Men Tablet] Ambrisentan [Letairis] 10 mg PO DAILY 04/04/20 04/13/22 Fluticasone [Flonase] 1 spray OMID BID 04/04/20 04/13/22 predniSONE [Prednisone] 5 mg PO DAILY MDD no further taper 04/04/20 04/13/22 traZODone [Desyrel] 100 mg PO DAILY PM PRN 04/04/20 04/13/22 Diclofenac Sodium [Voltaren 4 mg PO BID MDD hands 08/05/20 04/13/22 Arthritis Pain] Ondansetron [Ondansetron Odt] 4 mg PO Q6HR PRN 08/05/20 04/13/22 Simethicone [Gas Relief] 125 mg PO QID PRN 08/05/20 04/13/22 diphenhydrAMINE [Benadryl] 25 - 50 mg PO DAILY PRN 08/05/20 04/13/22 Fexofenadine HCl 180 mg PO DAILY 10/16/20 04/13/22 Torsemide 20 mg PO DAILY 12/13/20 04/13/22 Triamcinolone 0.1% Cream [Kenalog 1 applic TOP BID PRN 12/13/20 04/13/22 0.1% Cream] traMADol [Ultram] 50 mg PO TID 12/13/20 04/13/22 Acetaminophen [Acetaminophen Extra 500 mg PO BID MDD 3000 mg 08/04/21 04/13/22 Strength] Docusate Sodium 100Mg Capsule 100 mg PO DAILY 04/13/22 04/13/22 [Colace 100Mg Capsule] Amox/Clav 875/125 [Augmentin] 1 each PO Q12H #10 tablet 09/06/22 - Allergies Allergies/Adverse Reactions: Allergies Allergy/AdvReac Type Severity Reaction Status Date / Time cephalexin [From Keflex] Allergy Severe Unknown Verified 09/06/22 10:44 Sulfa (Sulfonamide Allergy Mild Rash Verified 09/06/22 10:44 Antibiotics) - Social History Does the pt smoke?: No Smoking Status: Never smoker Does the pt drink ETOH?: No Does the pt have substance abuse?: No - Immunizations Immunizations are current?: Yes - POLST Patient has POLST: Yes POLST Status: Full Code PD ED PE NORMAL - Vitals Vital signs reviewed: Yes - General General: No acute distress, Other (obvious trauma, AOx2) - HEENT HEENT: PERRL, EOMI, Other (No evidence of entrapment, 2cm horizontal laceration of eyelid without exposed fat) - Cardiac Cardiac: RRR, No murmur - Respiratory Respiratory: No respiratory distress, Clear bilaterally - Abdomen Abdomen: Soft, Non tender, Non distended - Back Back: No CVA TTP, No spinal TTP - Derm Derm: Other (extensive bruising over face, extremities. 2cm horizontal laceration over R eyebrow) - Extremities Extremities: No deformity, Other (extensive bruising) - Neuro Neuro: paper inspector 2-12 intact, No motor deficit, No sensory deficit, Normal speech Results - Vitals Vitals: Vital Signs - 24 hr 09/06/22 10:44 Temperature 37.0 C Heart Rate 81 Respiratory 18 Rate Blood Pressure 136/69 H O2 Saturation 99 Oxygen O2 Source Nasal cannula Procedures - Laceration (location) Eyelid Length in cm: 2 Wound type: Linear, Clean Wound preparation: Irrigated copiously NS Deep layer closure: Other (Dermabond) Other: Patient tolerated well, No complications, Neurovascular intact, Dressing applied, Tetanus UTD PD MEDICAL DECISION MAKING - ED course Complexity details: reviewed results, re-evaluated patient, considered differential, d/w patient ED course: Patient presenting for evaluation of laceration and head swelling after a ground-level fall. Patient complained of pain everywhere, however on physical exam the only obvious abnormalities are in the patient's face, there also has extensive bruising around her right knee. Imaging was significant for a right medial orbital wall fracture. There is no evidence of entrapment. Patient was sent home with a prescription for Augmentin and the mcc was given instructions to follow-up with an oral maxillofacial surgeon within 3 to 10 days. Eyelid lac repaired with dermabond. Patient remained stable on her 6 L nasal cannula and someone from her facility came to take her back. Departure - Departure Disposition: 01 Home, Self Care Clinical Impression: Medial orbital wall fracture, Periorbital hematoma, Fall Condition: Stable Instructions: ED Fx Face, ED Hematoma Prescriptions: Amox/Clav 875/125 [Augmentin] 1 each PO Q12H #10 tablet Comments: You were seen today for evaluation after a ground-level fall. You are found to have a medial orbital wall fracture. You will be treated with Augmentin for 5 days. You will need to follow-up with a maxillofacial doctor within 3 to 10 days. Make an appointment with ophthalmology as soon as possible if you have decreased vision or trouble seeing. The cut over your right eye was treated with Dermabond, do not pick at this, and will follow off gradually with time Discharge Date/Time: 09/06/22 14:39
== END 2022-09-06 14:39 | disposition home or self-care (01) ==
LOC: EDUNIT# → ED 10:31
DX: S02.831A Fracture of medial orbital wall, right side, initial encounter for closed fracture (principal); W19.XXXA Unspecified fall, initial encounter; Y92.091 Bathroom in other non-institutional residence as the place of occurrence of the external cause; F03.90 Unspecified dementia, unspecified severity, without behavioral disturbance, psychotic disturbance, mood disturbance, and anxiety; Z91.81 History of falling; Z99.81 Dependence on supplemental oxygen
CPT/HCPCS: 12011; 81001; 81003; 87086; 99282; 99284

== ENCOUNTER 2022-12-05 09:53 | Outpatient (CLI) | payer MEDICARE, OTHER ==
[2022-12-05 12:22] LABS: BASOPHILS % (AUTO) 0.4 %; EOSINOPHILS % (AUTO) 0.5 %; HGB - HEMOGLOBIN 9.9 g/dL (12.0-16.0); LYMPHOCYTES # (AUTO) 0.6 10^3/uL (1.5-3.5); LYMPHOCYTES % (AUTO) 7.3 %; MEAN CORPUSCULAR HEMOGLOBIN 28.6 pg (27.0-31.0); MEAN CORPUSCULAR HGB CONC 30.9 g/dL (32.0-36.0); MEAN CORPUSCULAR VOLUME 92.5 fL (81.0-99.0); MEAN PLATELET VOLUME 9.1 fL (7.9-10.8); MONOCYTES # (AUTO) 0.4 10^3/uL (0.0-1.0); MONOCYTES % (AUTO) 5.3 %; NEUTROPHILS # (AUTO) 7.2 10^3/uL (1.5-6.6); NEUTROPHILS % (AUTO) 85.8 %; PLT - PLATELET COUNT 328 10^3/uL (130-450); RED BLOOD COUNT 3.46 10^6/uL (4.20-5.40); RED CELL DISTRIBUTION WIDTH 14.6 % (12.0-15.0); WHITE BLOOD COUNT 8.4 x10^3/uL (4.8-10.8)
[2022-12-05 13:09] LABS: ALBUMIN 3.8 g/dL (3.2-5.5); ALBUMIN/GLOBULIN RATIO 1.4 (1.0-2.2); BILIRUBIN,TOTAL 0.6 mg/dL (0.2-1.0); CALCIUM 9.1 mg/dL (8.5-10.3); POTASSIUM 4.1 mmol/L (3.5-5.0); TOTAL PROTEIN 6.5 g/dL (6.7-8.2)
== END 2022-12-05 09:54 | disposition home or self-care (01) ==
LOC: LAB.N 09:53
PROVIDERS: ATTEND Family Medicine
DX: E03.9 Hypothyroidism, unspecified (principal); K59.09 Other constipation; J96.11 Chronic respiratory failure with hypoxia; J84.10 Pulmonary fibrosis, unspecified
CPT/HCPCS: 36415; 80053; 85025

== ENCOUNTER 2022-12-13 18:22 | Outpatient (CLI) | payer MEDICARE, OTHER | END 2022-12-13 18:23 | disposition EMS.NT | LOC: EMS 18:22 | DX: Z03.89 Encounter for observation for other suspected diseases and conditions ruled out (principal) ==

== ENCOUNTER 2023-01-11 10:59 | Outpatient (CLI) | payer MEDICARE, OTHER ==
[2023-01-11 11:22] LABS: BASOPHILS % (AUTO) 0.3 %; EOSINOPHILS % (AUTO) 0.3 %; HGB - HEMOGLOBIN 9.5 g/dL (12.0-16.0); LYMPHOCYTES # (AUTO) 0.5 10^3/uL (1.5-3.5); LYMPHOCYTES % (AUTO) 5.2 %; MEAN CORPUSCULAR HEMOGLOBIN 27.8 pg (27.0-31.0); MEAN CORPUSCULAR HGB CONC 30.6 g/dL (32.0-36.0); MEAN CORPUSCULAR VOLUME 90.6 fL (81.0-99.0); MONOCYTES # (AUTO) 0.3 10^3/uL (0.0-1.0); MONOCYTES % (AUTO) 2.9 %; NEUTROPHILS % (AUTO) 90.7 %; PLT - PLATELET COUNT 308 10^3/uL (130-450); RED BLOOD COUNT 3.42 10^6/uL (4.20-5.40); RED CELL DISTRIBUTION WIDTH 14.6 % (12.0-15.0); WHITE BLOOD COUNT 8.8 x10^3/uL (4.8-10.8)
[2023-01-11 11:40] LABS: ALBUMIN 3.8 g/dL (3.2-5.5); ALBUMIN/GLOBULIN RATIO 1.2 (1.0-2.2); BILIRUBIN,TOTAL 0.6 mg/dL (0.2-1.0); CALCIUM 9.2 mg/dL (8.5-10.3); CREATININE 0.9 mg/dL (0.4-1.0); TOTAL PROTEIN 7.1 g/dL (6.7-8.2)
--- NOTE | 2023-01-11 11:56 | XRAY Report ---
PROCEDURE: Chest 2 View X-Ray INDICATIONS: RESPIRATORY FAILURE TECHNIQUE: 2 views of the chest were acquired. COMPARISON: X-ray 09/29/2018 FINDINGS: Surgical changes and devices: None. Lungs and pleura: No pleural effusions or pneumothorax. Apical scarring and bibasilar reticulation. Mediastinum: Mediastinal contours are normal. Heart size is normal. Bones and chest wall: No suspicious bony abnormalities. Soft tissues appear unremarkable. IMPRESSION: No acute cardiopulmonary process. Reviewed by: Darron Cooley on 01/11/2023 11:54 AM [facility] Approved by: Darron Cooley on 01/11/2023 11:54 AM [facility] Station ID: [id number]
== END 2023-01-11 11:00 | disposition home or self-care (01) ==
LOC: DI 10:59
PROVIDERS: ATTEND Family Medicine
DX: J96.10 Chronic respiratory failure, unspecified whether with hypoxia or hypercapnia (principal)
CPT/HCPCS: 36415; 80053; 85025

== ENCOUNTER 2023-02-17 11:57 | Emergency (ER) | payer MEDICARE, OTHER ==
[2023-02-17] MEDS ORDERED: SODIUM CHLORIDE 0.9% 1,000 ML IV STA (12:45)
--- NOTE | 2023-02-17 12:45 | ED Physician Documentation ---
History of Present Illness - Stated complaint Stated Complaint: GLF/BACK PX - Chief complaint Chief Complaint: Trauma Ch/Bk - Additonal information Additional information: 82-year-old female presents to the emergency department for evaluation of low back pain after ground-level fall. History is obtained from both the patient and her son. She does have a history of dementia. The patient resides at [facility] in [place]. Last night she attempted to get out of bed but she fell. She reports that she struck her nightstand quite forcefully and lost consciousness. She is unsure for how long. The care staff at [facility] found that she had a large area of bruising on her anterior chest, left flank as well as her neck. They did place Steri-Strips across the laceration near her neck which was due to skin tearing from her oxygen tubing getting caught. Per her son she is behaving at her baseline and was able to ambulate with her walker this morning though she complained of low back pain. Past medical history most significant for severe COPD on 7 L oxygen at baseline, progressive pulmonary artery hypertension, daily alcohol use, chronic back pain and chronic shoulder pain as well as multiple joint discomforts. Patient presented to the emergency department with her son in a wheelchair. She was alert and well-appearing. Initial triage vital signs showed a blood pressure of 80/50 however on repeat in the room when supine it is 103/66. Room air saturations on 6 to 7 L nasal cannula are 100%. She does not appear to be anticoagulated. PD PAST MEDICAL HISTORY - Past Medical History Cardiovascular: Congestive heart failure, High cholesterol Respiratory: COPD, Pneumonia, Shortness of breath, Other Neuro: Headaches Endocrine/Autoimmune: None GI: GERD : Incontinence, Frequency HEENT: Chronic sinusitis Psych: Depression, Anxiety Musculoskeletal: Osteoarthritis, Chronic back pain, Other Derm: None - Past Surgical History Past Surgical History: Yes General: 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 /[employer]: Dilation and currettage, Hysterectomy Cardiovascular: Cardiac catheterization HEENT: Cataracts, Tonsil/Adenoidectomy, Other - Present Medications Home Medications: Ambulatory Orders Medication Instructions Recorded Confirmed Cholecalciferol (Vitamin D3) 2,000 units PO DAILY 02/04/17 04/13/22 [Vitamin D3] Mometasone/Formoterol [Dulera 100 2 puffs INH BID 02/04/17 04/13/22 Mcg-5 Mcg Inhaler] Escitalopram [Lexapro] 10 mg PO DAILY 02/19/17 04/13/22 Loperamide [Imodium] 2 - 4 mg PO PRN PRN MDD NTE 6 tabs 09/29/17 04/13/22 in 24 hours Ipratropium [place] 2 sprays OMID Q8H 01/30/18 04/13/22 Lovastatin 40 mg PO QPM 09/29/18 04/13/22 Omeprazole 40 mg PO DAILY 09/29/18 04/13/22 Sildenafil Citrate 20 mg PO TID 09/29/18 04/13/22 Spironolactone 25 mg PO DAILY 09/29/18 04/13/22 Tiotropium [place] [Spiriva 2 inh PO DAILY 09/29/18 04/13/22 Respimat] Potassium Chloride [K-Dur] 10 meq PO DAILY MDD with meals 12/10/18 04/13/22 Albuterol Sulfate [Proair 2 puffs PO Q4H PRN 04/03/19 04/13/22 Respiclick] Lidocaine Patch 5% [Lidoderm Patch] 1 patch TOP DAILY PRN MDD 16 04/03/19 04/13/22 Guaifenesin [Mucinex] 600 tab PO DAILY 07/01/19 04/13/22 Multivit-Min/FA/Lycopen/Lutein 1 tab PO DAILY 07/01/19 04/13/22 [Centrum Silver Men Tablet] Ambrisentan [Letairis] 10 mg PO DAILY 04/04/20 04/13/22 Fluticasone [Flonase] 1 spray OMID BID 04/04/20 04/13/22 predniSONE [Prednisone] 5 mg PO DAILY MDD no further taper 04/04/20 04/13/22 traZODone [Desyrel] 100 mg PO DAILY PM PRN 04/04/20 04/13/22 Diclofenac Sodium [Voltaren 4 mg PO BID MDD hands 08/05/20 04/13/22 Arthritis Pain] Ondansetron [Ondansetron Odt] 4 mg PO Q6HR PRN 08/05/20 04/13/22 Simethicone [Gas Relief] 125 mg PO QID PRN 08/05/20 04/13/22 diphenhydrAMINE [Benadryl] 25 - 50 mg PO DAILY PRN 08/05/20 04/13/22 Fexofenadine HCl 180 mg PO DAILY 10/16/20 04/13/22 Torsemide 20 mg PO DAILY 12/13/20 04/13/22 Triamcinolone 0.1% Cream [Kenalog 1 applic TOP BID PRN 12/13/20 04/13/22 0.1% Cream] traMADol [Ultram] 50 mg PO TID 12/13/20 04/13/22 Acetaminophen [Acetaminophen Extra 500 mg PO BID MDD 3000 mg 08/04/21 04/13/22 Strength] Docusate Sodium 100Mg Capsule 100 mg PO DAILY 04/13/22 04/13/22 [Colace 100Mg Capsule] Amox/Clav 875/125 [Augmentin] 1 each PO Q12H #10 tablet 09/06/22 - Allergies Allergies/Adverse Reactions: Allergies Allergy/AdvReac Type Severity Reaction Status Date / Time cephalexin [From Keflex] Allergy Severe Unknown Verified 02/17/23 12:12 Sulfa (Sulfonamide Allergy Mild Rash Verified 02/17/23 12:12 Antibiotics) - Social History Does the pt smoke?: No Smoking Status: Never smoker Does the pt drink ETOH?: No Does the pt have substance abuse?: No - Immunizations Immunizations are current?: Yes - POLST Patient has POLST: Yes POLST Status: Full Code PD ED PE EXPANDED - General General: Alert, Well developed/nourished - HEENT HEENT: Moist mucous membranes, Other (Large area of bruising across the left anterior neck. Superficial skin tear at the site where her oxygen tubing got caught. Normal phonation. No bruit. No palpable soft tissue mass. Full range of motion of the neck.) - Cardiac Cardiac: Regular Rate, Murmur Present, Radial strong equal, Pedal strong equal, Cap refill < 2 sec, Chest wall TTP (Significant tenderness of the anterior chest bilaterally just below the clavicles extending to the just under her xiphoid process.) - Respiratory Respiratory: Clear to ausultation moisés (Baseline 6 L nasal cannula). No: Di stress, Labored - Abdomen Abdomen: Normal Bowel sounds. No: Tender to palpation - Back Back: Vertebral tenderness (No midline cervical thoracic or lumbar tenderness elicited. Pain was elicited with palpation of the left flank over the region of bruising on her posterior back.) - Derm Derm: Bruising (Extensive bruising on the anterior chest left flank, neck and legs) - Extremities Extremities: Other (Patient ranges both hips easily without tenderness elicited. No deformity or malrotation. No pain or tenderness elicited with movement or palpation of the knees feet or ankles bilaterally) - Neuro Neuro: Confused (Mild confusion at baseline.), CNII-XII intact - GCS Eye Opening: Spontaneous Motor: Obeys Commands Verbal: Confused Total: 14 Results - Vitals Vitals: Vital Signs - 24 hr 02/17/23 02/17/23 02/17/23 12:07 13:12 14:23 Temperature 36.7 C Heart Rate 85 79 85 Respiratory 20 14 15 Rate Blood Pressure 83/40 L 123/53 L 110/55 L O2 Saturation 100 100 98 If not protocol 7 7 : Oxygen Flow, liters/minute Oxygen O2 Source Nasal cannula - Labs Labs: Laboratory Tests 02/17/23 02/17/23 02/17/23 13:00 13:00 13:00 WBC 9.8 RBC 3.27 L Hgb 8.9 L Hct 29.0 L MCV 88.7 MCH 27.2 MCHC 30.7 L RDW 15.1 H Plt Count 277 MPV 8.7 Neut # (Auto) 9.1 H Lymph # (Auto) 0.3 L [place] # (Auto) 0.3 Eos # (Auto) 0.0 Baso # (Auto) 0.0 Absolute Nucleated RBC 0.00 Nucleated RBC % 0.0 PT 9.7 L INR 0.8 Sodium 130 L Potassium 4.6 Chloride 90 L Carbon Dioxide 26 Anion Gap 14.0 H BUN 22 H Creatinine 1.1 H Estimated GFR (MDRD) 48 L Glucose 98 Calcium 8.7 Total Bilirubin 0.5 AST 24 ALT 13 Alkaline Phosphatase 41 L Total Protein 6.8 Albumin 3.7 Globulin 3.1 Albumin/Globulin Ratio 1.2 Lipase 28 Blood Type Blood Type Recheck Antibody Screen 02/17/23 02/17/23 13:00 14:04 WBC RBC Hgb Hct MCV MCH MCHC RDW Plt Count MPV Neut # (Auto) Lymph # (Auto) [place] # (Auto) Eos # (Auto) Baso # (Auto) Absolute Nucleated RBC Nucleated RBC % PT INR Sodium Potassium Chloride Carbon Dioxide Anion Gap BUN Creatinine Estimated GFR (MDRD) Glucose Calcium Total Bilirubin AST ALT Alkaline Phosphatase Total Protein Albumin Globulin Albumin/Globulin Ratio Lipase Blood Type A POSITIVE Blood Type Recheck A POSITIVE Antibody Screen NEGATIVE - Rads (name of study) CT head Relevant Findings:: Final report received (No intracranial hemorrhage or skull fracture. Sequelae of chronic microvascular ischemic disease) CT chest w Relevant Findings:: Final report received cervical CT Relevant Findings:: Final report received (No cervical fracture) CT abd/pelvis w Relevant Findings:: Final report received (No traumatic findings within the abdomen or pelvis. Left 10th rib fracture. Questionable fracture of the 12th rib may reflect pseudoarticulation with a severely scoliotic L1 transverse process) lumbar CT Relevant Findings:: Final report received (Possible posterior left 12th rib fracture. Multilevel disc disease without significant bony spinal canal stenosis. Multilevel facet arthrosis with multifocal neuroforaminal narrowing as above) PD Medical Decision Making - ED course Complexity details: reviewed results, re-evaluated patient, considered differential, d/w patient, d/w family ED course: 82-year-old female who resides at [facility] in [place] presents to the emergency department after a fall out of bed last night. She does have a history of COPD, pulmonary artery hypertension on 7 L oxygen at baseline, history of hypertension as well as alcoholism. Patient was amnesic after the fall and presents with a large bruising on her chest, left flank as well as a superficial skin tear on her anterior neck where her IV oxygen tubing got caught. On presentation initially in triage they documented a blood pressure of 80/50 however throughout the ER stay she has been normotensive without tachycardia. She is afebrile. She presents with no focal neurodeficits. Given the extensive bruising and the lapse in consciousness with the fall as well as a history of alcoholism we did wynn scan her. A CT of the head is interpreted by the radiologist showed no acute intracranial findings. There were no cervical spine fractures. A CT of the chest showed a mildly displaced left 10th rib fracture. Subsequent scanning of the lumbar and abdomen query the possibility of 1/12 rib fracture but was not definite. There were no findings on CT imaging to suggest pulmonary contusion, intra-abdominal injury or hemoperitoneum. Here in the emergency department the patient was given a single dose of oxycodone which improved her pain. She was also administered a liter of IV fluids. The CBC shows some anemia hemoglobin of 8.9 today. Her baseline appears to be 9-10. Her electrolytes showed no worrisome findings. At this time the patient is stable for discharge home. Because of her daily alcohol use and alcoholism I do not feel that opiates would be safe. She states that she usually takes ibuprofen at home which I think would be sufficient though should this should be used cautiously in the setting of anemia and alcohol use. She does not like to take Tylenol. I discussed the CT imaging and lab results with the patient and her son. Emergent return precautions for worsening symptoms were discussed. Departure - Departure Disposition: Home, Self Care Clinical Impression: Ecchymosis Fall Qualifiers: Encounter type: initial encounter Qualified Code(s): W19.XXXA - Unspecified fall, initial encounter Left rib fracture Qualifiers: Encounter type: initial encounter Rib fracture type: single rib Fracture type: closed Qualified Code(s): S22.32XA - Fracture of one rib, left side, initial encounter for closed fracture Anemia Qualifiers: Anemia type: unspecified type Qualified Code(s): D64.9 - Anemia, unspecified Condition: Stable Comments: Stephanie you had a fall out of your bed last night which you struck your nightstand. You have extensive bruising on your chest, neck as well as your left flank. Here in the emergency department we did extensive CT imaging that included your head, cervical spine, lumbar spine, chest, abdomen and pelvis. We do see that you have a left mildly displaced 10th rib fracture. There were no fracture seen of the spine. There was no pulmonary contusion noted. There was no intra-abdominal organ injury. There were multiple findings consistent with your history of pulmonary artery hypertension and the need for oxygen. These included thickening of the lung pleura and a dilated pulmonary artery on CT imaging. We did obtain a CBC today that shows an anemia with a hemoglobin of 8.9. This should be discussed very closely with your primary care provider. You may benefit from referral to surgery for colonoscopy. Your electrolytes showed no worrisome findings. Because you do drink daily we have to use narcotic medications very carefully and I do not feel that they are safe to do discharge you with. I would recommend Tylenol for discomfort. If it any point you find that your symptoms are worsening, you have fevers, di fficulty breathing, any uncontrolled abdominal or chest pain then you should return immediately to the ER for repeat evaluation
[2023-02-17] MEDS ORDERED: oxyCODONE 5 MG TABLET PO STA (12:55)
[2023-02-17 13:14] LABS: BASOPHILS % (AUTO) 0.2 %; EOSINOPHILS % (AUTO) 0.1 %; HGB - HEMOGLOBIN 8.9 g/dL (12.0-16.0); LYMPHOCYTES # (AUTO) 0.3 10^3/uL (1.5-3.5); LYMPHOCYTES % (AUTO) 3.4 %; MEAN CORPUSCULAR HEMOGLOBIN 27.2 pg (27.0-31.0); MEAN CORPUSCULAR HGB CONC 30.7 g/dL (32.0-36.0); MEAN CORPUSCULAR VOLUME 88.7 fL (81.0-99.0); MEAN PLATELET VOLUME 8.7 fL (7.9-10.8); MONOCYTES # (AUTO) 0.3 10^3/uL (0.0-1.0); MONOCYTES % (AUTO) 2.7 %; NEUTROPHILS # (AUTO) 9.1 10^3/uL (1.5-6.6); PLT - PLATELET COUNT 277 10^3/uL (130-450); RED BLOOD COUNT 3.27 10^6/uL (4.20-5.40); RED CELL DISTRIBUTION WIDTH 15.1 % (12.0-15.0); WHITE BLOOD COUNT 9.8 x10^3/uL (4.8-10.8)
--- NOTE | 2023-02-17 13:17 | XRAY Report ---
PROCEDURE: Chest 1 View X-Ray INDICATIONS: Chest Pain TECHNIQUE: One view of the chest was acquired. COMPARISON: January 11, 2023. FINDINGS: Surgical changes and devices: None. Lungs and pleura: Prominent unchanged interstitial markings with apical and basilar scarring. No ple ural effusions or pneumothorax. Lungs are clear. Mediastinum: Mediastinal contours appear normal. Heart size is normal. Bones and chest wall: No displaced rib fracture. IMPRESSION: No displaced rib fracture or pneumothorax identified. Reviewed by: Landry Johnson MD on 02/17/2023 12:15 PM NIKOLAS Approved by: Landry Johnson MD on 02/17/2023 12:15 PM AKNURIA Station ID: [id number]
[2023-02-17 13:19] LABS: INR 0.8 (0.8-1.2); PT - PROTHROMBIN TIME 9.7 secs (9.9-12.6)
[2023-02-17] MEDS ORDERED: iohexoL-300 100 ML VIAL ONE (13:20)
[2023-02-17 13:28] LABS: ALBUMIN 3.7 g/dL (3.2-5.5); ALBUMIN/GLOBULIN RATIO 1.2 (1.0-2.2); BILIRUBIN,TOTAL 0.5 mg/dL (0.2-1.0); CALCIUM 8.7 mg/dL (8.5-10.3); CREATININE 1.1 mg/dL (0.4-1.0); POTASSIUM 4.6 mmol/L (3.5-5.0); TOTAL PROTEIN 6.8 g/dL (6.7-8.2)
--- NOTE | 2023-02-17 14:19 | CT Report ---
PROCEDURE: HEAD WO INDICATIONS: glf; LOC TECHNIQUE: Noncontrast 4.5 mm thick angled axial sections acquired from the foramen magnum to the vertex. For r adiation dose reduction, the following was used: automated exposure control, adjustment of mA and/or kV according to patient size. COMPARISON: None. FINDINGS: Image quality: Excellent. CSF spaces: Basal cisterns are patent. No extra-axial fluid collections. Ventricles are normal in size and shape. Brain: Diffuse proximal volume loss with expansion of CSF-containing spaces with periventricular whit e matter hypodensities consistent with chronic microvascular ischemic disease. No midline shift. No intracranial masses or hemorrhage. [place]-white matter interface is normal. Skull and face: Calvarium and visualized facial bones are intact, without suspicious lesions. Sinuses: Visualized sinuses and mastoids are clear. IMPRESSION: 1.No intracranial hemorrhage or skull fracture. 2.Sequelae of chronic microvascular ischemic disease. Reviewed by: Landry Johnson MD on 02/17/2023 1:18 PM AKDT Approved by: Landry Johnson MD on 02/17/2023 1:18 PM AKDT Station ID: [id number]
--- NOTE | 2023-02-17 14:22 | CT Report ---
PROCEDURE: CERVICAL SPINE WO INDICATIONS: glf; LOC TECHNIQUE: Noncontrast 3 mm thick sections acquired from the skull base to the T4 level. Sagittal and coronal r eformats were then constructed. For radiation dose reduction, the following was used: automated exp osure control, adjustment of mA and/or kV according to patient size. COMPARISON: None. FINDINGS: Image quality: Excellent. Bones: No fractures or dislocations. Visualized superior ribs are intact. Moderate to advanced spo ndylitic changes of the cervical spine most prominent at C4-C5 and C5-C6. Soft tissues: Prevertebral soft tissues are normal in thickness. No paravertebral hematomas. No ap ical pneumothoraces. IMPRESSION: No cervical fracture. Reviewed by: Landry Johnson MD on 02/17/2023 1:20 PM NIKOLAS Approved by: Landry Johnson MD on 02/17/2023 1:20 PM NIKOLAS Station ID: [id number]
[2023-02-17] MEDS ORDERED: iohexoL-300 100 ML VIAL IVP ONE (14:26)
--- NOTE | 2023-02-17 14:31 | CT Report ---
PROCEDURE: CHEST W INDICATIONS: chest trauma after fall; ? rib fx; pulmonary contu CONTRAST:100omni 300 TECHNIQUE: After the administration of intravenous contrast, 1 mm axial images were acquired from the pulmonary apices through the posterior costophrenic angles. Axial 5 mm soft tissue kernel reconstructions were performed as well as 8 mm axial MIP and coronal and sagittal 5 mm reformations. For radiation dose reduction, the following was used: automated exposure control, adjustment of mA and/or kV according to patient size. COMPARISON: Radiograph from same date, CT chest angiogram October 01, 2017 FINDINGS: Image quality: Excellent. Lungs and pleura: Diffuse emphysematous changes of the lungs. Apical scarring with pleural thickening along the major fissure and coarse calcifications. No pulmonary contusion. No acute air space opacit ies. No pleural effusions or pneumothorax. Central and peripheral airways are patent and normal in caliber. Mediastinum: Heart size is normal. No pericardial effusion. No mediastinal or hilar adenopathy by size criteria. Normal appearance of the aorta. The pulmonary artery measures 4 cm in diameter.. Esop hagus is normal in caliber. No hiatal hernia. Bones and chest wall: Minimal displaced fracture of the left lateral 10th rib. Questionable contour irregularity of the left posterior 12th rib. No suspicious bony lesions. No vertebral body compressi on fractures. No axillary or supraclavicular adenopathy by size criteria. The thyroid is normal in size and there are no incidental findings.. Abdomen: Visualized upper abdominal solid organs appear normal. Upper abdominal bowel loops are nor mal in caliber. IMPRESSION: 1.Minimally displaced left lateral 10th rib fracture with questionably nondisplaced left 12th rib fra cture. 2.Severe emphysematous changes. 3.Pleural thickening with coarse calcifications in the left apex. 4.Pulmonary artery measuring 4 cm suggestive of pulmonary hypertension. Reviewed by: Landry Johnson MD on 02/17/2023 1:30 PM AKDT Approved by: Landry Johnson MD on 02/17/2023 1:30 PM AKDT Station ID: [id number]
--- NOTE | 2023-02-17 14:51 | CT Report ---
PROCEDURE: ABDOMEN/PELVIS W INDICATIONS: left flank pain; bruising; low back pain fall CONTRAST: 100omni 300 TECHNIQUE: After the administration of IV contrast, 5 mm thick sections acquired from the diaphragms to the symp hysis. 5 mm thick coronal and sagittal reformats were acquired. For radiation dose reduction, the f ollowing was used: automated exposure control, adjustment of mA and/or kV according to patient size. COMPARISON: CT chest from same date. CT abdomen and pelvis February 09, 2017 FINDINGS: Image quality: Excellent. ABDOMEN: Lung bases: Emphysematous changes of the lungs. Heart size is normal. Solid organs: Liver and spleen are normal in size and enhancement. Gallbladder is normal. Biliary system is non dilated. Pancreas enhances normally. No adrenal nodules. Kidneys demonstrate normal size and enhancement, without hydronephrosis. Partially exophytic cystic changes of the left kidney. Peritoneum and bowel: Bowel loops demonstrate normal wall thickness and caliber. No free fluid or a ir. Nodes and vessels: No retroperitoneal or mesenteric adenopathy by size criteria. Aorta and inferior vena cava are normal in size. Severe calcifications of the aorta and major branches. Miscellaneous: No ventral hernias. PELVIS: Genitourinary: Bladder wall thickness is normal. Miscellaneous: No inguinal hernias or adenopathy. Bones: No suspicious bony lesions. No vertebral body compression fractures. Nondisplaced left 10th rib fracture. Questionable nondisplaced left 12th rib fracture. There is severe scoliosis of the lum bar spine IMPRESSION: 1.No traumatic findings within the abdomen or pelvis. 2.Left 10th rib fracture. 3.Questionable fracture of the 12th rib may reflect pseudoarticulation with a severely scoliotic L1 t ransverse process Reviewed by: Landry Johnson MD on 02/17/2023 1:49 PM AKDT Approved by: Landry Johnson MD on 02/17/2023 1:49 PM AKDT Station ID: [id number]
--- NOTE | 2023-02-17 14:57 | CT Report ---
PROCEDURE: LUMBAR SPINE WO INDICATIONS: low back paina fter fall TECHNIQUE: Noncontrast 3 mm thick sections acquired from the T12 level to the sacrum. Sagittal and coronal refo rmats were constructed. For radiation dose reduction, the following was used: automated exposure co ntrol, adjustment of mA and/or kV according to patient size. COMPARISON: CT abdomen pelvis dated FINDINGS: Image quality: Excellent. Bones: [place] left scoliosis of the lumbar spine centered at L3. No acute vertebral body compression fracture s. No suspicious lytic or blastic bony lesions. Central spinal caliber is of normal overall caliber . No pars defects. Multilevel disc height loss with vacuum disc phenomenon and moderate endplate de generative changes extending from T12 through S1. Questionable fracture versus pseudoarticulation of the left 12th rib. T12-L1: No spinal canal narrowing. L1-L2: No spinal canal or bony foraminal narrowing. Moderate facet arthrosis. L2-L3: No spinal canal stenosis. Moderate to severe facet arthrosis results in moderate right bony foraminal narrowing. L3-L4: No spinal canal stenosis. Moderate facet arthrosis results in mild right foraminal narrowing L4-L5: No bony spinal canal or foraminal narrowing. Moderate facet arthrosis. L5-S1: No bony spinal canal narrowing. Moderate facet arthrosis results in mild left foraminal narr owing. Soft tissues: No retroperitoneal masses or hematomas. Visualized aorta is normal in caliber. IMPRESSION: 1.Possible posterior left 12th rib fracture versus pseudoarticulation secondary to scoliosis of the l umbar spine. 2.Multilevel disc disease without significant bony spinal canal stenosis. 3.Multilevel facet arthrosis with multifocal neural foraminal narrowing as above Reviewed by: Landry Johnson MD on 02/17/2023 1:56 PM AKDT Approved by: Landry Johnson MD on 02/17/2023 1:56 PM AKDT Station ID: [id number]
[2023-02-17 15:54] VITALS: BP 106/52
== END 2023-02-17 16:15 | disposition home or self-care (01) ==
LOC: ED 11:57
DX: S11.91XA Laceration without foreign body of unspecified part of neck, initial encounter (principal); S20.219A Contusion of unspecified front wall of thorax, initial encounter; S22.32XA Fracture of one rib, left side, initial encounter for closed fracture; W06.XXXA Fall from bed, initial encounter; W22.03XA Walked into furniture, initial encounter; Y93.89 Activity, other specified; Y92.193 Bedroom in other specified residential institution as the place of occurrence of the external cause; D64.9 Anemia, unspecified; F10.20 Alcohol dependence, uncomplicated
CPT/HCPCS: 36415; 70450; 71045; 71260; 72125; 72131; 74177; 80053; 83690; 85025; 85610; 86850; 86900; 86901; 99284; A9270; Q9967

== ENCOUNTER 2023-03-04 19:33 | Outpatient (CLI) | payer MEDICARE, OTHER | END 2023-03-04 23:59 | disposition critical access hospital (66) | LOC: EMS 19:33 | DX: R10.30 Lower abdominal pain, unspecified (principal); R11.10 Vomiting, unspecified | CPT/HCPCS: A0425; A0429 ==

== ENCOUNTER 2023-03-04 19:46 | Emergency (ER) | payer MEDICARE, OTHER ==
[2023-03-04 20:03] VITALS: BP 180/80
[2023-03-04 20:22] LABS: BASOPHILS % (AUTO) 0.4 %; EOSINOPHILS % (AUTO) 0.3 %; HGB - HEMOGLOBIN 8.2 g/dL (12.0-16.0); LYMPHOCYTES # (AUTO) 0.5 10^3/uL (1.5-3.5); LYMPHOCYTES % (AUTO) 4.9 %; MEAN CORPUSCULAR HEMOGLOBIN 26.9 pg (27.0-31.0); MEAN CORPUSCULAR HGB CONC 30.4 g/dL (32.0-36.0); MEAN CORPUSCULAR VOLUME 88.5 fL (81.0-99.0); MEAN PLATELET VOLUME 8.3 fL (7.9-10.8); MONOCYTES # (AUTO) 0.9 10^3/uL (0.0-1.0); MONOCYTES % (AUTO) 8.9 %; NEUTROPHILS % (AUTO) 84.8 %; PLT - PLATELET COUNT 276 10^3/uL (130-450); RED BLOOD COUNT 3.05 10^6/uL (4.20-5.40); RED CELL DISTRIBUTION WIDTH 15.4 % (12.0-15.0); WHITE BLOOD COUNT 10.6 x10^3/uL (4.8-10.8)
[2023-03-04 20:34] LABS: ALBUMIN 3.4 g/dL (3.2-5.5); ALBUMIN/GLOBULIN RATIO 1.3 (1.0-2.2); BILIRUBIN,TOTAL 0.3 mg/dL (0.2-1.0); CALCIUM 8.6 mg/dL (8.5-10.3); POTASSIUM 4.1 mmol/L (3.5-5.0); TOTAL PROTEIN 6.1 g/dL (6.7-8.2)
[2023-03-04] MEDS ORDERED: iohexoL-300 100 ML VIAL ONE (20:36)
[2023-03-04] MEDS ORDERED: HYDROmorphone 1 MG/ML CARPUJECT IVP STA (20:38)
--- NOTE | 2023-03-04 20:40 | ED Physician Documentation ---
PD HPI ABD PAIN - Stated complaint Stated Complaint: ABD PX - Chief complaint Chief Complaint: Abd Pain - Additional information Additional information: 82-year-old female with a history of pulmonary hypertension on chronic oxygen therapy 6 to 8 L nasal cannula presents with abdominal pain. Patient states she always has abdominal pain and frequent gas and bloating and is typically relieved by simethicone but today she felt like her pain was worse and that the bloating was worse. She is not having any nausea or, she did vomit x1 but she relates that due to pain, she has otherwise eaten today without difficulty. She is not having any diarrhea or constipation and she is passing gas. She states her abdomen is always bloated and she has been told in the past this is due to the her belly breathing from her pulmonary hypertension. The patient was seen recently as a few weeks ago for a fall and she did sustain a rib fracture at that time but no other findings on evaluation. She still has the rib pain and that has not improved. She has not had any fever, chills, chest pain or difficulty breathing beyond her baseline, diarrhea or constipation, dysuria or other urinary symptoms. She took tramadol at home as well as ibuprofen without relief in her pain. She also takes regular simethicone. She states that she is not prescribed ibuprofen at her care facility and is wondering if it can be prescribed should she can have it. Ultimately, the primary reason of patient's visit today was to get a prescription for ibuprofen as she does not want to have any other treatment today. Review of Systems Constitutional: reports: Reviewed and negative Eyes: reports: Reviewed and negative Ears: reports: Reviewed and negative Nose: reports: Reviewed and negative Throat: reports: Reviewed and negative Cardiac: reports: Reviewed and negative Respiratory: reports: Reviewed and negative GI: reports: Abdominal Pain, Abdominal Swelling. denies: Nausea, Vomiting, Constipation, Diarrhea, Hematemesis, Bloody / black stool : reports: Reviewed and negative Skin: reports: Reviewed and negative Musculoskeletal: reports: Reviewed and negative PD PAST MEDICAL HISTORY - Past Medical History Past Medical History: Yes Cardiovascular: Congestive heart failure, High cholesterol Respiratory: COPD, Pneumonia, Shortness of breath, Other Neuro: Headaches Endocrine/Autoimmune: None GI: GERD : Incontinence, Frequency HEENT: Chronic sinusitis Psych: Depression, Anxiety Musculoskeletal: Osteoarthritis, Chronic back pain, Other Derm: None - Past Surgical History Past Surgical History: Yes General: 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 /[employer]PRES[employer]ATIVE: Dilation and currettage, Hysterectomy Cardiovascular: Cardiac catheterization HEENT: Cataracts, Tonsil/Adenoidectomy, Other - Present Medications Home Medications: Ambulatory Orders Medication Instructions Recorded Confirmed Cholecalciferol (Vitamin D3) 2,000 units PO DAILY 02/04/17 04/13/22 [Vitamin D3] Mometasone/Formoterol [Dulera 100 2 puffs INH BID 02/04/17 04/13/22 Mcg-5 Mcg Inhaler] Escitalopram [Lexapro] 10 mg PO DAILY 02/19/17 04/13/22 Loperamide [Imodium] 2 - 4 mg PO PRN PRN MDD NTE 6 tabs 09/29/17 04/13/22 in 24 hours Ipratropium Magnolia 2 sprays OMID Q8H 01/30/18 04/13/22 Lovastatin 40 mg PO QPM 09/29/18 04/13/22 Omeprazole 40 mg PO DAILY 09/29/18 04/13/22 Sildenafil Citrate 20 mg PO TID 09/29/18 04/13/22 Spironolactone 25 mg PO DAILY 09/29/18 04/13/22 Tiotropium Magnolia [Spiriva 2 inh PO DAILY 09/29/18 04/13/22 Respimat] Potassium Chloride [K-Dur] 10 meq PO DAILY MDD with meals 12/10/18 04/13/22 Albuterol Sulfate [Proair 2 puffs PO Q4H PRN 04/03/19 04/13/22 Respiclick] Lidocaine Patch 5% [Lidoderm Patch] 1 patch TOP DAILY PRN MDD 16 04/03/19 04/13/22 Guaifenesin [Mucinex] 600 tab PO DAILY 07/01/19 04/13/22 Multivit-Min/FA/Lycopen/Lutein 1 tab PO DAILY 07/01/19 04/13/22 [Centrum Silver Men Tablet] Ambrisentan [Letairis] 10 mg PO DAILY 04/04/20 04/13/22 Fluticasone [Flonase] 1 spray OMID BID 04/04/20 04/13/22 predniSONE [Prednisone] 5 mg PO DAILY MDD no further taper 04/04/20 04/13/22 traZODone [Desyrel] 100 mg PO DAILY PM PRN 04/04/20 04/13/22 Diclofenac Sodium [Voltaren 4 mg PO BID MDD hands 08/05/20 04/13/22 Arthritis Pain] Ondansetron [Ondansetron Odt] 4 mg PO Q6HR PRN 08/05/20 04/13/22 Simethicone [Gas Relief] 125 mg PO QID PRN 08/05/20 04/13/22 diphenhydrAMINE [Benadryl] 25 - 50 mg PO DAILY PRN 08/05/20 04/13/22 Fexofenadine HCl 180 mg PO DAILY 10/16/20 04/13/22 Torsemide 20 mg PO DAILY 12/13/20 04/13/22 Triamcinolone 0.1% Cream [Kenalog 1 applic TOP BID PRN 12/13/20 04/13/22 0.1% Cream] traMADol [Ultram] 50 mg PO TID 12/13/20 04/13/22 Acetaminophen [Acetaminophen Extra 500 mg PO BID MDD 3000 mg 08/04/21 04/13/22 Strength] Docusate Sodium 100Mg Capsule 100 mg PO DAILY 04/13/22 04/13/22 [Colace 100Mg Capsule] Amox/Clav 875/125 [Augmentin] 1 each PO Q12H #10 tablet 09/06/22 Ibuprofen [Motrin] 400 mg PO Q6H PRN #30 tablet 03/04/23 Ondansetron Odt [Zofran] 4 mg TL BID PRN #10 tablet 03/04/23 - Allergies Allergies/Adverse Reactions: Allergies Allergy/AdvReac Type Severity Reaction Status Date / Time cephalexin [From Keflex] Allergy Severe Unknown Verified 03/04/23 19:57 Sulfa (Sulfonamide Allergy Mild Rash Verified 03/04/23 19:57 Antibiotics) - Social History Does the pt smoke?: No Smoking Status: Never smoker Does the pt drink ETOH?: No Does the pt have substance abuse?: No - Immunizations Immunizations are current?: Yes - POLST Patient has POLST: Yes POLST Status: Full Code PD ED PE NORMAL - Vitals Vital signs reviewed: Yes - General General: Alert and oriented X 3, No acute distress, Well developed/nourished - HEENT HEENT: Atraumatic, Pharynx benign - Neck Neck: Supple, no meningeal sign, No JVD - Cardiac Cardiac: RRR, No murmur - Respiratory Respiratory: No respiratory distress, Clear bilaterally - Abdomen Abdomen: Normal bowel sounds, Soft, Non tender, Non distended, Other (Patient has protuberant abdomen but it is soft, nondistended) - Back Back: No CVA TTP, No spinal TTP - Derm Derm: Normal color, Warm and dry, No rash - Extremities Extremities: No deformity, No tenderness to palpate, Normal ROM s pain - Neuro Neuro: Alert and oriented X 3 Eye Opening: Spontaneous Motor: Obeys Commands Verbal: Oriented GCS Score: 15 - Psych Psych: Normal mood, Normal affect Results - Vitals Vitals: Vital Signs - 24 hr 03/04/23 03/04/23 19:57 20:02 Temperature 36.5 C 36.5 C Heart Rate 85 85 Respiratory 18 18 Rate Blood Pressure 180/80 H 180/80 H O2 Saturation 100 100 If not protocol 4 : Oxygen Flow, liters/minute Oxygen O2 Source Nasal cannula - Labs Labs: Laboratory Tests 03/04/23 03/04/23 20:16 20:16 WBC 10.6 RBC 3.05 L Hgb 8.2 L Hct 27.0 L MCV 88.5 MCH 26.9 L MCHC 30.4 L RDW 15.4 H Plt Count 276 MPV 8.3 Neut # (Auto) 9.0 H Lymph # (Auto) 0.5 L [place] # (Auto) 0.9 Eos # (Auto) 0.0 Baso # (Auto) 0.0 Absolute Nucleated RBC 0.00 Nucleated RBC % 0.0 Sodium 129 L Potassium 4.1 Chloride 93 L Carbon Dioxide 28 Anion Gap 8.0 BUN 17 Creatinine 1.0 Estimated GFR (MDRD) 53 L Glucose 103 H Calcium 8.6 Total Bilirubin 0.3 AST 16 ALT 13 Alkaline Phosphatase 49 Total Protein 6.1 L Albumin 3.4 Globulin 2.7 Albumin/Globulin Ratio 1.3 Lipase 27 - Rads (name of study) No standard instances Relevant Findings:: Final report received PD Medical Decision Making - ED course Complexity details: reviewed old records, reviewed results, re-evaluated patient, considered differential, d/w patient ED course: 82-year-old female presents with Acute on chronic abdominal pain. She is well- appearing on physical exam, nontoxic, afebrile. She has a soft abdomen though it is chronically protuberant, and her bowel tones are active. She was able to void but did not give a urine sample but does not have any dysuria urgency or frequency. I cannot reproduce pain on physical exam but patient states that she was extremely uncomfortable Earlier today. We therefore obtained labs which are stable, she does have a chronic anemia but no leukocytosis and no other acute findings on her lab work. I discussed with patient that I was Unsure of the etiology of her pain and discussed getting a CT scan however patient did not want to and stated she primarily was here to get a prescription for ibuprofen as it helps with her pain but she does not have a prescription to take at her care facility. As she has stable labs, no peritoneal signs, and is nontoxic, I do think she is stable for discharge home therefore we will discharge her with as needed ibuprofen And 10 tablets of Zofran as needed. The patient did receive 0.5 mg of IV Dilaudid here with substantial improvement in her pain. Departure - Departure Disposition: 01 Home, Self Care Clinical Impression: Abdominal pain Qualifiers: Abdominal location: generalized Qualified Code(s): R10.84 - Generalized abdominal pain Condition: Good Instructions: ED Abdominal Pain Female Non-Specific Abdominal Pain Prescriptions: Ibuprofen [Motrin] 400 mg PO Q6H PRN #30 tablet PRN Reason: Pain 1-4 Ondansetron Odt [Zofran] 4 mg TL BID PRN #10 tablet PRN Reason: Nausea / Vomiting Comments: You presented with abdominal pain and bloating that is an exacerbation of your chronic similar issues. Your belly is soft and nontender, your labs are stable though you do have chronic anemia, and you did not want to have a repeat CT scan today which I think is reasonable as this is an exacerbation of your chronic pain. I have given you simethicone and a dose of IV Dilaudid for your pain. We will discharge you home with recommendation to take ibuprofen 400 mg every 6 hours as needed for pain as well as your other regularly scheduled medication. I have also given you a short course of nausea medicine to use as needed.
[2023-03-04] MEDS ORDERED: SODIUM CHLORIDE 0.9% 250 ML IV STA (20:43)
[2023-03-04] MEDS ORDERED: SIMETHICONE CHEW 80 MG TABLET PO STA (21:12)
== END 2023-03-04 22:53 | disposition home or self-care (01) ==
LOC: EDUNIT# → ED 19:46
DX: R10.84 Generalized abdominal pain (principal)
CPT/HCPCS: 36415; 80053; 83690; 85025; 96374; 99284; A9270; J1170

== ENCOUNTER 2023-03-23 19:16 | Emergency (ER) | payer MEDICARE, OTHER ==
--- NOTE | 2023-03-23 22:15 | ED Physician Documentation ---
PD HPI ABD PAIN - Stated complaint Stated Complaint: BACK PX, STOMACH PX - Chief complaint Chief Complaint: Back Pain - History obtained from History obtained from: Patient - Additional information Additional information: HPI from patient. Patient c/o left lower rib pain, ongoing since she fell last month; at that time (02/17/23), she presented to [facility] ED and had extensive testing including CTH, CT chest, CT cervical spine, CT lumbar spine, and CT A/P. Acute findings on these studies were left 10th rib fracture as well as possible posterior 12th rib fracture. Patient presents tonight c/o recurrent pain in the area of the left 10th rib fracture. She denies recent injury. She indicates she is only here at this time for pain relief; she says she had good pain relief with an IV pain medication given on a more recent ED visit. [facility] records indicate she was also in this ED 03/04/23 for abdominal pain, had unremarkable blood tests and subsequently expressed that she just wanted rx for ibuprofen as well as something for pain in ED and was given IV dilaudid. Review of Systems Cardiac: reports: Reviewed and negative Respiratory: reports: Reviewed and negative GI: reports: Reviewed and negative Skin: denies: Rash Musculoskeletal: reports: Back pain (left lower posterior rib pain) PD PAST MEDICAL HISTORY - Past Medical History Cardiovascular: Congestive heart failure, High cholesterol Respiratory: COPD, Pneumonia, Shortness of breath, Other Neuro: Headaches Endocrine/Autoimmune: None GI: GERD : Incontinence, Frequency HEENT: Chronic sinusitis Psych: Depression, Anxiety Musculoskeletal: Osteoarthritis, Chronic back pain, Other Derm: None - Past Surgical History Past Surgical History: Yes 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: 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 and 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, Hysterectomy Cardiovascular: Cardiac catheterization HEENT: Cataracts, Tonsil/Adenoidectomy, Other - Present Medications Home Medications: Ambulatory Orders Medication Instructions Recorded Confirmed Cholecalciferol (Vitamin D3) 2,000 units PO DAILY 02/04/17 04/13/22 [Vitamin D3] Mometasone/Formoterol [Dulera 100 2 puffs INH BID 02/04/17 04/13/22 Mcg-5 Mcg Inhaler] Escitalopram [Lexapro] 10 mg PO DAILY 02/19/17 04/13/22 Loperamide [Imodium] 2 - 4 mg PO PRN PRN MDD NTE 6 tabs 09/29/17 04/13/22 in 24 hours Ipratropium Almo 2 sprays OMID Q8H 01/30/18 04/13/22 Lovastatin 40 mg PO QPM 09/29/18 04/13/22 Omeprazole 40 mg PO DAILY 09/29/18 04/13/22 Sildenafil Citrate 20 mg PO TID 09/29/18 04/13/22 Spironolactone 25 mg PO DAILY 09/29/18 04/13/22 Tiotropium Almo [Spiriva 2 inh PO DAILY 09/29/18 04/13/22 Respimat] Potassium Chloride [K-Dur] 10 meq PO DAILY MDD with meals 12/10/18 04/13/22 Albuterol Sulfate [Proair 2 puffs PO Q4H PRN 04/03/19 04/13/22 Respiclick] Lidocaine Patch 5% [Lidoderm Patch] 1 patch TOP DAILY PRN MDD 16 04/03/19 04/13/22 Guaifenesin [Mucinex] 600 tab PO DAILY 07/01/19 04/13/22 Multivit-Min/FA/Lycopen/Lutein 1 tab PO DAILY 07/01/19 04/13/22 [Centrum Silver Men Tablet] Ambrisentan [Letairis] 10 mg PO DAILY 04/04/20 04/13/22 Fluticasone [Flonase] 1 spray OMID BID 04/04/20 04/13/22 predniSONE [Prednisone] 5 mg PO DAILY MDD no further taper 04/04/20 04/13/22 traZODone [Desyrel] 100 mg PO DAILY PM PRN 04/04/20 04/13/22 Diclofenac Sodium [Voltaren 4 mg PO BID MDD hands 08/05/20 04/13/22 Arthritis Pain] Ondansetron [Ondansetron Odt] 4 mg PO Q6HR PRN 08/05/20 04/13/22 Simethicone [Gas Relief] 125 mg PO QID PRN 08/05/20 04/13/22 diphenhydrAMINE [Benadryl] 25 - 50 mg PO DAILY PRN 08/05/20 04/13/22 Fexofenadine HCl 180 mg PO DAILY 10/16/20 04/13/22 Torsemide 20 mg PO DAILY 12/13/20 04/13/22 Triamcinolone 0.1% Cream [Kenalog 1 applic TOP BID PRN 12/13/20 04/13/22 0.1% Cream] traMADol [Ultram] 50 mg PO TID 12/13/20 04/13/22 Acetaminophen [Acetaminophen Extra 500 mg PO BID MDD 3000 mg 08/04/21 04/13/22 Strength] Docusate Sodium 100Mg Capsule 100 mg PO DAILY 04/13/22 04/13/22 [Colace 100Mg Capsule] Amox/Clav 875/125 [Augmentin] 1 each PO Q12H #10 tablet 09/06/22 Ibuprofen [Motrin] 400 mg PO Q6H PRN #30 tablet 03/04/23 Ondansetron Odt [Zofran] 4 mg TL BID PRN #10 tablet 03/04/23 - Allergies Allergies/Adverse Reactions: Allergies Allergy/AdvReac Type Severity Reaction Status Date / Time cephalexin [From Keflex] Allergy Severe Unknown Verified 03/23/23 19:25 Sulfa (Sulfonamide Allergy Mild Rash Verified 03/23/23 19:25 Antibiotics) - Social History Does the pt smoke?: No Smoking Status: Never smoker Does the pt drink ETOH?: No Does the pt have substance abuse?: No - Immunizations Immunizations are current?: Yes - POLST Patient has POLST: Yes POLST Status: Full Code PD ED PE NORMAL - Vitals Vital signs reviewed: Yes - General General: Alert and oriented X 3, No acute distress, Well developed/nourished - Cardiac Cardiac: RRR, No murmur - Respiratory Respiratory: No respiratory distress, Clear bilaterally - Abdomen Abdomen: Soft, Non tender - Back Back: No CVA TTP, No spinal TTP, Other (mild TTP left lower posterolateral chest wall without crepitus) Results - Vitals Vitals: Oxygen O2 Source Room air PD Medical Decision Making - ED course Complexity details: reviewed old records, considered differential, d/w patient ED course: Reviewed ED records from both 02/17/23 and 03/04/23. Patient has no new c/o today, only c/o recurrent left posterior rib pain at the same site and of the same quality as when she was evaluated in January 2023 and found to have a fracture of the left 10th rib. She has no new injury, lungs are CTA bilaterally. No indication for emergent testing at this time; she indicates she would like the same medication that was given IV as her previous ED visit, and records indicate she was given 0.5mg IV dilaudid. She is given 1mg IM dilaudid at this time and reports good relief with this. I initially offered to provide rx for tramadol, which she seems amenable to (for further pain control), but then I note she had recent prescription fill for this and thus revisited the question of rx for further pain control until she can follow up with her PMD. She confirms she has tramadol at home, and then says she does not want any narcotic medications (I offered vicodin or percocet as take- home pack, but she thus declines). Return precautions discussed. Departure - Departure Disposition: Home, Self Care Clinical Impression: Back pain Qualifiers: Back pain location: low back pain Chronicity: unspecified Back pain laterality: left Sciatica presence: without sciatica Qualified Code(s): M54.50 - Low back pain, unspecified Condition: Good Instructions: ED Low Back Pain Injury Follow-Up: Heriberto Christopher MD [Primary Care Provider] - Comments: You are given a shot of Dilaudid (hydromorphone) in the emergency department for your ongoing pain. I recommend that you contact your primary care provider on Saturday when the office opens to see if they can get you in sooner than your scheduled appointment for reevaluation for this ongoing pain. Discharge Date/Time: 03/23/23 23:15
[2023-03-23] MEDS ORDERED: HYDROmorphone 1 MG/ML CARPUJECT IM STA (22:39)
[2023-03-23 22:57] VITALS: BP 148/78
== END 2023-03-23 23:15 | disposition home or self-care (01) ==
LOC: ED 19:16
DX: M54.50 Low back pain, unspecified (principal)
CPT/HCPCS: 96372; 99283; J1170

== ENCOUNTER 2023-04-01 22:33 | Outpatient (CLI) | payer MEDICARE, OTHER | END 2023-04-01 22:34 | disposition critical access hospital (66) | LOC: EMS 22:33 | DX: M54.50 Low back pain, unspecified (principal); R11.10 Vomiting, unspecified; W19.XXXA Unspecified fall, initial encounter; Y92.091 Bathroom in other non-institutional residence as the place of occurrence of the external cause | CPT/HCPCS: A0425; A0429 ==

== ENCOUNTER 2023-04-01 22:50 | Emergency (ER) | payer MEDICARE, OTHER ==
--- NOTE | 2023-04-01 23:45 | ED Physician Documentation ---
History of Present Illness - Stated complaint Stated Complaint: ETOH/FALL - Chief complaint Chief Complaint: General - History obtained from History obtained from: Patient - Additonal information Additional information: BIBA for fall. Patient found on floor of her residence at [facility] after fall. On my HPI, patient does not recall why she fell. She tells me she did not lose consciousness and thinks she just lost her balance. Admits to drinking alcohol tonight. Denies KESSLER. She c/o left upper anterior chest pain and right lower chest pain/right upper abdominal pain. Review of Systems Cardiac: reports: Chest pain / pressure (chest wall pain). denies: Palpitations Respiratory: reports: Reviewed and negative GI: reports: Abdominal Pain (RUQ). 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, Hysterectomy Cardiovascular: Cardiac catheterization HEENT: Cataracts, Tonsil/Adenoidectomy, Other - Present Medications Home Medications: Ambulatory Orders Medication Instructions Recorded Confirmed Cholecalciferol (Vitamin D3) 2,000 units PO DAILY 02/04/17 04/13/22 [Vitamin D3] Mometasone/Formoterol [Dulera 100 2 puffs INH BID 02/04/17 04/13/22 Mcg-5 Mcg Inhaler] Escitalopram [Lexapro] 10 mg PO DAILY 02/19/17 04/13/22 Loperamide [Imodium] 2 - 4 mg PO PRN PRN MDD NTE 6 tabs 09/29/17 04/13/22 in 24 hours Ipratropium [place] 2 sprays OMID Q8H 01/30/18 04/13/22 Lovastatin 40 mg PO QPM 09/29/18 04/13/22 Omeprazole 40 mg PO DAILY 09/29/18 04/13/22 Sildenafil Citrate 20 mg PO TID 09/29/18 04/13/22 Spironolactone 25 mg PO DAILY 09/29/18 04/13/22 Tiotropium [place] [Spiriva 2 inh PO DAILY 09/29/18 04/13/22 Respimat] Potassium Chloride [K-Dur] 10 meq PO DAILY MDD with meals 12/10/18 04/13/22 Albuterol Sulfate [Proair 2 puffs PO Q4H PRN 04/03/19 04/13/22 Respiclick] Lidocaine Patch 5% [Lidoderm Patch] 1 patch TOP DAILY PRN MDD 16 04/03/19 04/13/22 Guaifenesin [Mucinex] 600 tab PO DAILY 07/01/19 04/13/22 Multivit-Min/FA/Lycopen/Lutein 1 tab PO DAILY 07/01/19 04/13/22 [Centrum Silver Men Tablet] Ambrisentan [Letairis] 10 mg PO DAILY 04/04/20 04/13/22 Fluticasone [Flonase] 1 spray OMID BID 04/04/20 04/13/22 predniSONE [Prednisone] 5 mg PO DAILY MDD no further taper 04/04/20 04/13/22 traZODone [Desyrel] 100 mg PO DAILY PM PRN 04/04/20 04/13/22 Diclofenac Sodium [Voltaren 4 mg PO BID MDD hands 08/05/20 04/13/22 Arthritis Pain] Ondansetron [Ondansetron Odt] 4 mg PO Q6HR PRN 08/05/20 04/13/22 Simethicone [Gas Relief] 125 mg PO QID PRN 08/05/20 04/13/22 diphenhydrAMINE [Benadryl] 25 - 50 mg PO DAILY PRN 08/05/20 04/13/22 Fexofenadine HCl 180 mg PO DAILY 10/16/20 04/13/22 Torsemide 20 mg PO DAILY 12/13/20 04/13/22 Triamcinolone 0.1% Cream [Kenalog 1 applic TOP BID PRN 12/13/20 04/13/22 0.1% Cream] traMADol [Ultram] 50 mg PO TID 12/13/20 04/13/22 Acetaminophen [Acetaminophen Extra 500 mg PO BID MDD 3000 mg 08/04/21 04/13/22 Strength] Docusate Sodium 100Mg Capsule 100 mg PO DAILY 04/13/22 04/13/22 [Colace 100Mg Capsule] Amox/Clav 875/125 [Augmentin] 1 each PO Q12H #10 tablet 09/06/22 Ibuprofen [Motrin] 400 mg PO Q6H PRN #30 tablet 03/04/23 Ondansetron Odt [Zofran] 4 mg TL BID PRN #10 tablet 03/04/23 - Allergies Allergies/Adverse Reactions: Allergies Allergy/AdvReac Type Severity Reaction Status Date / Time cephalexin [From Keflex] Allergy Severe Unknown Verified 04/01/23 22:53 Sulfa (Sulfonamide Allergy Mild Rash Verified 04/01/23 22:53 Antibiotics) - Social History Does the pt smoke?: No Smoking Status: Never smoker Does the pt drink ETOH?: No Does the pt have substance abuse?: No - Immunizations Immunizations are current?: Yes - POLST Patient has POLST: Yes POLST Status: Full Code PD ED PE NORMAL - Vitals Vital signs reviewed: Yes - General General: Alert and oriented X 3, No acute distress, Well developed/nourished - HEENT HEENT: Atraumatic, PERRL, EOMI - Neck Neck: No bony TTP - Cardiac Cardiac: RRR - Respiratory Respiratory: No respiratory distress, Clear bilaterally - Abdomen Abdomen: Soft, Non tender - Extremities Extremities: No edema - Neuro Neuro: Alert and oriented X 3, 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, No motor deficit, No sensory deficit, Normal speech Eye Opening: Spontaneous Motor: Obeys Commands Verbal: Oriented GCS Score: 15 Results - Vitals Vitals: Oxygen O2 Source Nasal cannula Oxygen Flow Rate 5 - Labs Labs: Laboratory Tests 04/02/23 04/02/23 04/02/23 00:00 00:00 00:16 WBC 8.9 RBC 3.26 L Hgb 8.8 L Hct 27.8 L MCV 85.3 MCH 27.0 MCHC 31.7 L RDW 15.6 H Plt Count 277 MPV 8.2 Neut # (Auto) 7.2 H Lymph # (Auto) 0.8 L [place] # (Auto) 0.8 Eos # (Auto) 0.0 Baso # (Auto) 0.0 Absolute Nucleated RBC 0.00 Nucleated RBC % 0.0 Sodium 129 L Potassium 3.9 Chloride 86 L Carbon Dioxide 27 Anion Gap 16.0 H BUN 15 Creatinine 0.7 Estimated GFR (MDRD) 80 L Glucose 93 Calcium 9.1 Total Bilirubin 0.2 AST 23 ALT 20 Alkaline Phosphatase 42 Total Protein 6.8 Albumin 4.0 Globulin 2.8 Albumin/Globulin Ratio 1.4 Lipase 31 Nasal Adenovirus (PCR) NOT DETECTED Nasal B. parapertussis DNA (PCR) NOT DETECTED Nasal Coronavir 229E PCR NOT DETECTED Nasal Coronavir HKU1 PCR NOT DETECTED Nasal Coronavir NL63 PCR NOT DETECTED Nasal Coronavir OC43 PCR NOT DETECTED Nasal Enterovir/Rhinovir PCR NOT DETECTED Nasal Influenza B PCR NOT DETECTED Nasal Influenza A PCR NOT DETECTED Nasal Parainfluen 1 PCR NOT DETECTED Nasal Parainfluen 2 PCR NOT DETECTED Nasal Parainfluen 3 PCR NOT DETECTED Nasal Parainfluen 4 PCR NOT DETECTED Nasal RSV (PCR) NOT DETECTED Nasal B.pertussis DNA PCR NOT DETECTED Nasal C.pneumoniae (PCR) NOT DETECTED Omid Human Metapneumo PCR NOT DETECTED Nasal M.pneumoniae (PCR) NOT DETECTED Nasal SARS-CoV-2 (PCR) NOT DETECTED Ethyl Alcohol 124.8 - Rads (name of study) chest xray Relevant Findings:: Prelim report reviewed, See rad report PD Medical Decision Making - ED course Complexity details: reviewed old records, reviewed results, re-evaluated patient, considered differential, d/w patient ED course: Presents after fall at place of residence ([place]). no evidence of acute injury on CXR (specifically, no visualized rib fractures, pneumothorax). Anemia on CBC with hemoglobin of 8.8, but improved compared to 03/04/23 (8.2). Similarly, hyponatremia noted with sodium level of 129, which is unchanged compared to 03/04/23. Serum ethanol level is 124.8. She is observed in ED for over 4 hours and on multiple reevaluations, she is in NAD, awake, alert, and responds appropriately. Results d/w patient. Return precautions reviewed. She is given 0.5mg IV dilaudid for her left chest wall pain with improvement (per patient on reevaluation). Departure - Departure Disposition: 01 Home, Self Care Clinical Impression: Fall Qualifiers: Encounter type: initial encounter Qualified Code(s): W19.XXXA - Unspecified fall, initial encounter Condition: Good Instructions: ED Contusion Chest Wall, ED Fall Dizziness Weakn Balance Comments: There were no concerning findings on tonight's tests. Your red blood cell level is low but improved from 1 month ago when you were in the emergency department. Your sodium is slightly low, unchanged from the previous visit. Your alcohol level was a little bit high; this might have contributed to unsteadiness leading to the fall. The chest x-ray did not have evidence of any bony injury such as rib fractures. Discharge Date/Time: 04/02/23 03:21
[2023-04-02 00:26] LABS: BASOPHILS % (AUTO) 0.2 %; EOSINOPHILS % (AUTO) 0.3 %; HCT - HEMATOCRIT 27.8 % (37.0-47.0); HGB - HEMOGLOBIN 8.8 g/dL (12.0-16.0); LYMPHOCYTES # (AUTO) 0.8 10^3/uL (1.5-3.5); LYMPHOCYTES % (AUTO) 9.2 %; MEAN CORPUSCULAR HGB CONC 31.7 g/dL (32.0-36.0); MEAN CORPUSCULAR VOLUME 85.3 fL (81.0-99.0); MEAN PLATELET VOLUME 8.2 fL (7.9-10.8); MONOCYTES # (AUTO) 0.8 10^3/uL (0.0-1.0); MONOCYTES % (AUTO) 9.2 %; NEUTROPHILS # (AUTO) 7.2 10^3/uL (1.5-6.6); NEUTROPHILS % (AUTO) 80.4 %; PLT - PLATELET COUNT 277 10^3/uL (130-450); RED BLOOD COUNT 3.26 10^6/uL (4.20-5.40); RED CELL DISTRIBUTION WIDTH 15.6 % (12.0-15.0); WHITE BLOOD COUNT 8.9 x10^3/uL (4.8-10.8)
--- NOTE | 2023-04-02 01:01 | XRAY Report ---
PROCEDURE: Chest 1 View X-Ray INDICATIONS: dyspnea TECHNIQUE: One view of the chest was acquired. COMPARISON: Chest x-ray 02/17/2023, 09/29/2018. FINDINGS: Surgical changes and devices: None. Lungs and pleura: There is hyperinflation of the lungs with flattening of the hemidiaphragms compati ble with COPD. No acute consolidation. There is a small right pleural effusion. Mediastinum: Mediastinal contours appear normal. Heart size is normal. Bones and chest wall: No suspicious bony lesions. Overlying soft tissues appear unremarkable. IMPRESSION: 1. No acute consolidation. 2. Small right pleural effusion. 3. Findings compatible with COPD redemonstrated. Reviewed by: David Alexander MD on 04/02/2023 1:00 AM PDT Approved by: David Alexander MD on 04/02/2023 1:00 AM PDT Station ID: [id number]
[2023-04-02 01:14] LABS: ALBUMIN/GLOBULIN RATIO 1.4 (1.0-2.2); BILIRUBIN,TOTAL 0.2 mg/dL (0.2-1.0); CALCIUM 9.1 mg/dL (8.5-10.3); CREATININE 0.7 mg/dL (0.4-1.0); ETOH - ETHANOL 124.8 mg/dL; POTASSIUM 3.9 mmol/L (3.5-5.0); TOTAL PROTEIN 6.8 g/dL (6.7-8.2)
[2023-04-02 01:24] LABS: B. PARAPERTUSSIS- RESP PCR PAN NOT DETECTED; B. PERTUSSIS- RESP PCR PANEL NOT DETECTED; C. PNEUMONIAE- RESP PCR PANEL NOT DETECTED; CORONAVIRUS 229E-RESP PCR NOT DETECTED; CORONAVIRUS HKU1-RESP PCR NOT DETECTED; CORONAVIRUS NL63-RESP PCR NOT DETECTED; CORONAVIRUS OC43-RESP PCR NOT DETECTED; HUMAN METAPNEUMOVIRUS NOT DETECTED; INFLUENZA A- RESP PCR PANEL NOT DETECTED; INFLUENZA B - RESP PCR PANEL NOT DETECTED; M. PNEUMONIAE- RESP PCR PANEL NOT DETECTED; PARAINFLUENZA VIRUS 1 NOT DETECTED; PARAINFLUENZA VIRUS 2 NOT DETECTED; PARAINFLUENZA VIRUS 3 NOT DETECTED; PARAINFLUENZA VIRUS 4 NOT DETECTED; RHINOVIRUS/ENTEROVIRUS NOT DETECTED; RSV- RESP PCR PANEL NOT DETECTED; SARS-CoV-2 -RESP PCR PANEL NOT DETECTED
[2023-04-02] MEDS ORDERED: HYDROmorphone 1 MG/ML CARPUJECT IVP STA (02:34)
[2023-04-02 03:09] VITALS: BP 127/53
== END 2023-04-02 03:21 | disposition home or self-care (01) ==
LOC: ED 22:50
DX: R07.89 Other chest pain (principal); R10.11 Right upper quadrant pain; Z20.822 Contact with and (suspected) exposure to COVID-19
CPT/HCPCS: 36415; 71045; 80053; 83690; 85025; 87633; 96374; 99284; G0480; J1170; 80320

== ENCOUNTER 2023-04-02 03:19 | Outpatient (CLI) | payer MEDICARE, OTHER | END 2023-04-02 23:59 | disposition home or self-care (01) | LOC: EMS 03:19 | PROVIDERS: ATTEND Emergency Medicine | DX: M54.9 Dorsalgia, unspecified (principal); W18.30XA Fall on same level, unspecified, initial encounter; Y92.099 Unspecified place in other non-institutional residence as the place of occurrence of the external cause; Z99.81 Dependence on supplemental oxygen | CPT/HCPCS: A0425; A0428 ==

== ENCOUNTER 2023-04-04 02:05 | Outpatient (CLI) | payer MEDICARE, OTHER | END 2023-04-04 02:06 | disposition critical access hospital (66) | LOC: EMS 02:05 | DX: S00.83XA Contusion of other part of head, initial encounter (principal); S00.12XA Contusion of left eyelid and periocular area, initial encounter; S00.11XA Contusion of right eyelid and periocular area, initial encounter; S50.11XA Contusion of right forearm, initial encounter; R41.0 Disorientation, unspecified; M54.2 Cervicalgia; W19.XXXA Unspecified fall, initial encounter; Y92.099 Unspecified place in other non-institutional residence as the place of occurrence of the external cause | CPT/HCPCS: A0425; A0429 ==

== ENCOUNTER 2023-04-04 02:19 | Emergency (ER) | payer MEDICARE, OTHER ==
[2023-04-04] MEDS ORDERED: SODIUM CHLORIDE 0.9% 1,000 ML IV STA (02:36)
[2023-04-04] MEDS ORDERED: MORPHINE 2 MG/ML CARPUJECT IVP STA ×2 (02:36→04:12)
[2023-04-04] MEDS ORDERED: iohexoL-300 100 ML VIAL ONE (03:00)
[2023-04-04 03:02] LABS: BASOPHILS % (AUTO) 0.6 %; EOSINOPHILS # (AUTO) 0.1 10^3/uL (0.0-0.7); EOSINOPHILS % (AUTO) 1.1 %; HGB - HEMOGLOBIN 7.6 g/dL (12.0-16.0); LYMPHOCYTES # (AUTO) 0.7 10^3/uL (1.5-3.5); LYMPHOCYTES % (AUTO) 13.9 %; MEAN CORPUSCULAR HGB CONC 31.7 g/dL (32.0-36.0); MEAN CORPUSCULAR VOLUME 85.1 fL (81.0-99.0); MEAN PLATELET VOLUME 8.6 fL (7.9-10.8); MONOCYTES # (AUTO) 0.6 10^3/uL (0.0-1.0); MONOCYTES % (AUTO) 11.8 %; NEUTROPHILS # (AUTO) 3.8 10^3/uL (1.5-6.6); NEUTROPHILS % (AUTO) 71.1 %; PLT - PLATELET COUNT 270 10^3/uL (130-450); RED BLOOD COUNT 2.82 10^6/uL (4.20-5.40); RED CELL DISTRIBUTION WIDTH 15.1 % (12.0-15.0); WHITE BLOOD COUNT 5.3 x10^3/uL (4.8-10.8)
[2023-04-04 03:24] LABS: ALBUMIN 3.6 g/dL (3.2-5.5); ALBUMIN/GLOBULIN RATIO 1.3 (1.0-2.2); ALKALINE PHOSPHATASE 39 IU/L (42-121); ALT ALANINE AMINOTRANSFERASE 24 IU/L (10-60); AST ASPARTATE AMINOTRANSFERASE 23 IU/L (10-42); BILIRUBIN,TOTAL 0.6 mg/dL (0.2-1.0); BUN - BLOOD UREA NITROGEN 14 mg/dL (6-20); CARBON DIOXIDE - CO2 28 mmol/L (21-32); CHLORIDE 85 mmol/L (101-111); CREATININE 0.8 mg/dL (0.4-1.0); ETOH - ETHANOL < 5.0 mg/dL; GFR - MDRD 69 (>89); GLUCOSE 98 mg/dL (70-100); LIPASE 27 U/L (22-51); POTASSIUM 3.7 mmol/L (3.5-5.0); SODIUM 126 mmol/L (135-145); TOTAL PROTEIN 6.3 g/dL (6.7-8.2)
--- NOTE | 2023-04-04 03:24 | ED Physician Documentation ---
History of Present Illness - Stated complaint Stated Complaint: GLF, HIT HEAD, FACIAL INJURY, RT SHOULDER/RIB PAIN - Chief complaint Chief Complaint: Trauma Hd/Nk - History obtained from History obtained from: Patient, EMS - Additonal information Additional information: 82yF with history of frequent falls, most recently a couple days ago, seen in our ED, presents with fall again tonight with +HT and possible LOC. patient is in independent living of nursing facility and sometimes drinks alcohol to excess. history limited by patient discomfort. 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, Hysterectomy Cardiovascular: Cardiac catheterization HEENT: Cataracts, Tonsil/Adenoidectomy, Other - Present Medications Home Medications: Ambulatory Orders Medication Instructions Recorded Confirmed Cholecalciferol (Vitamin D3) 2,000 units PO DAILY 02/04/17 04/13/22 [Vitamin D3] Mometasone/Formoterol [Dulera 100 2 puffs INH BID 02/04/17 04/13/22 Mcg-5 Mcg Inhaler] Escitalopram [Lexapro] 10 mg PO DAILY 02/19/17 04/13/22 Loperamide [Imodium] 2 - 4 mg PO PRN PRN MDD NTE 6 tabs 09/29/17 04/13/22 in 24 hours Ipratropium [place] 2 sprays OMID Q8H 01/30/18 04/13/22 Lovastatin 40 mg PO QPM 09/29/18 04/13/22 Omeprazole 40 mg PO DAILY 09/29/18 04/13/22 Sildenafil Citrate 20 mg PO TID 09/29/18 04/13/22 Spironolactone 25 mg PO DAILY 09/29/18 04/13/22 Tiotropium [place] [Spiriva 2 inh PO DAILY 09/29/18 04/13/22 Respimat] Potassium Chloride [K-Dur] 10 meq PO DAILY MDD with meals 12/10/18 04/13/22 Albuterol Sulfate [Proair 2 puffs PO Q4H PRN 04/03/19 04/13/22 Respiclick] Lidocaine Patch 5% [Lidoderm Patch] 1 patch TOP DAILY PRN MDD 16 04/03/19 04/13/22 Guaifenesin [Mucinex] 600 tab PO DAILY 07/01/19 04/13/22 Multivit-Min/FA/Lycopen/Lutein 1 tab PO DAILY 07/01/19 04/13/22 [Centrum Silver Men Tablet] Ambrisentan [Letairis] 10 mg PO DAILY 04/04/20 04/13/22 Fluticasone [Flonase] 1 spray OMID BID 04/04/20 04/13/22 predniSONE [Prednisone] 5 mg PO DAILY MDD no further taper 04/04/20 04/13/22 traZODone [Desyrel] 100 mg PO DAILY PM PRN 04/04/20 04/13/22 Diclofenac Sodium [Voltaren 4 mg PO BID MDD hands 08/05/20 04/13/22 Arthritis Pain] Ondansetron [Ondansetron Odt] 4 mg PO Q6HR PRN 08/05/20 04/13/22 Simethicone [Gas Relief] 125 mg PO QID PRN 08/05/20 04/13/22 diphenhydrAMINE [Benadryl] 25 - 50 mg PO DAILY PRN 08/05/20 04/13/22 Fexofenadine HCl 180 mg PO DAILY 10/16/20 04/13/22 Torsemide 20 mg PO DAILY 12/13/20 04/13/22 Triamcinolone 0.1% Cream [Kenalog 1 applic TOP BID PRN 12/13/20 04/13/22 0.1% Cream] traMADol [Ultram] 50 mg PO TID 12/13/20 04/13/22 Acetaminophen [Acetaminophen Extra 500 mg PO BID MDD 3000 mg 08/04/21 04/13/22 Strength] Docusate Sodium 100Mg Capsule 100 mg PO DAILY 04/13/22 04/13/22 [Colace 100Mg Capsule] Amox/Clav 875/125 [Augmentin] 1 each PO Q12H #10 tablet 09/06/22 Ibuprofen [Motrin] 400 mg PO Q6H PRN #30 tablet 03/04/23 Ondansetron Odt [Zofran] 4 mg TL BID PRN #10 tablet 03/04/23 - Allergies Allergies/Adverse Reactions: Allergies Allergy/AdvReac Type Severity Reaction Status Date / Time cephalexin [From Keflex] Allergy Severe Unknown Verified 04/04/23 02:36 Sulfa (Sulfonamide Allergy Mild Rash Verified 04/04/23 02:36 Antibiotics) - Social History Does the pt smoke?: No Smoking Status: Never smoker Does the pt drink ETOH?: No Does the pt have substance abuse?: No - Immunizations Immunizations are current?: Yes - POLST Patient has POLST: Yes POLST Status: Full Code PD ED PE NORMAL - Vitals Vital signs reviewed: Yes - General General: Other (uncomfortable appearing, repeatedly saying "ow". emaciated appearance) - HEENT HEENT: Atraumatic, PERRL, EOMI, Other (BL ecchymosis to periorbital region) - Neck Neck: No bony TTP, Other (c spine in place) - Cardiac Cardiac: RRR - Respiratory Respiratory: No respiratory distress, Clear bilaterally - Abdomen Abdomen: Non tender, Non distended - Back Back: Other (ttp throughout c,t,l,s spine) - Derm Derm: Other (patient is covered in ecchymoses of varying ages. ) - Extremities Extremities: Other (discomfort with rom of both hips. R elbow swelling and discomfort with rom. R shoulder tender with rom. ) - Neuro Neuro: No motor deficit, No sensory deficit Eye Opening: Spontaneous Motor: Obeys Commands Verbal: Oriented GCS Score: 15 Results - Vitals Vitals: Vital Signs - 24 hr 04/04/23 04/04/23 04/04/23 02:28 03:22 03:30 Temperature 36.6 C 36.7 C Heart Rate 82 93 98 Respiratory 14 12 11 L Rate Blood Pressure 131/61 H 131/66 H 131/66 H O2 Saturation 99 96 99 If not protocol 5 : Oxygen Flow, liters/minute 04/04/23 04/04/23 04/04/23 04:09 04:17 04:25 Temperature Heart Rate 92 90 85 Respiratory 15 13 16 Rate Blood Pressure 110/48 L 111/52 L 115/68 O2 Saturation 93 100 95 If not protocol 5 5 5 : Oxygen Flow, liters/minute 04/04/23 04/04/23 04/04/23 04:48 05:01 06:00 Temperature Heart Rate 89 86 90 Respiratory 18 13 12 Rate Blood Pressure 116/49 L 101/79 106/59 L O2 Saturation 95 99 92 If not protocol 5 5 5 : Oxygen Flow, liters/minute 04/04/23 06:26 Temperature Heart Rate 83 Respiratory 12 Rate Blood Pressure 111/59 L O2 Saturation 99 If not protocol : Oxygen Flow, liters/minute Oxygen O2 Source Oxymask Oxygen Flow Rate 5 - Labs Labs: Laboratory Tests 04/04/23 04/04/23 04/04/23 02:32 02:32 02:32 WBC 5.3 RBC 2.82 L Hgb 7.6 L Hct 24.0 L MCV 85.1 MCH 27.0 MCHC 31.7 L RDW 15.1 H Plt Count 270 MPV 8.6 Neut # (Auto) 3.8 Lymph # (Auto) 0.7 L [place] # (Auto) 0.6 Eos # (Auto) 0.1 Baso # (Auto) 0.0 Absolute Nucleated RBC 0.00 Nucleated RBC % 0.0 PT 9.6 L INR 0.8 APTT 27.6 Sodium 126 L Potassium 3.7 Chloride 85 L Carbon Dioxide 28 Anion Gap 13.0 BUN 14 Creatinine 0.8 Estimated GFR (MDRD) 69 L Glucose 98 Calcium 9.0 Total Bilirubin 0.6 AST 23 ALT 24 Alkaline Phosphatase 39 L Total Protein 6.3 L Albumin 3.6 Globulin 2.7 Albumin/Globulin Ratio 1.3 Lipase 27 Ethyl Alcohol < 5.0 SARS-CoV-2 (PCR) Blood Type Antibody Screen 04/04/23 04/04/23 04:08 05:00 WBC RBC Hgb Hct MCV MCH MCHC RDW Plt Count MPV Neut # (Auto) Lymph # (Auto) [place] # (Auto) Eos # (Auto) Baso # (Auto) Absolute Nucleated RBC Nucleated RBC % PT INR APTT Sodium Potassium Chloride Carbon Dioxide Anion Gap BUN Creatinine Estimated GFR (MDRD) Glucose Calcium Total Bilirubin AST ALT Alkaline Phosphatase Total Protein Albumin Globulin Albumin/Globulin Ratio Lipase Ethyl Alcohol SARS-CoV-2 (PCR) NOT DETECTED Blood Type A POSITIVE Antibody Screen NEGATIVE PD Medical Decision Making - ED course ED course: 82yF presents s/p fall tonight with full body pain. she is DNR with selective treatment only on her POLST form. plan to undertake workup to r/o traumatic injury. IV morphine 4mg provided with some relief. Patient has minimally displaced R elbow fracture. also with R subdural hemorrhage with intraventricular hemorrhage. She is AOX2, arguably AOX3 with coaching. (Able to state her full name, that she came from assisted living and is now in the hospital, but states the year is 2003. Correctly identifies the season as spring.) will contact [facility] for guidance regarding management but she declined transfer. Attempted to call roseanne Holcomb [phone] but unable to reach him. Labwork significant for worsening anemia and hyponatremia. d/w [facility] neurosurgeon Dr. Zamora who reviewed the CT films and recommends repeating head CT in 2 hours and if stable, discharge home. No acute neurosurgical intervention is indicated at this time. Plan to endorse to incoming ED MD at 7am shift change. Departure - Departure Clinical Impression: Ecchymosis, Fall, Head injury, Subdural hematoma, Intraventricular hemorrhage, Elbow fracture, right, Hyponatremia, Anemia Condition: Serious
[2023-04-04] MEDS ORDERED: iohexoL-300 100 ML VIAL IVP ONE (04:23)
[2023-04-04 04:43] LABS: INR 0.8 (0.8-1.2); PT - PROTHROMBIN TIME 9.6 secs (9.9-12.6)
[2023-04-04 04:51] LABS: PARTIAL THROMBOPLASTIN TIME 27.6 secs (24.9-33.3)
[2023-04-04] MEDS ORDERED: HYDROmorphone 0.5 MG/0.5 ML SYRINGE IVP STA (04:53)
--- NOTE | 2023-04-04 08:42 | CT Report ---
PROCEDURE: HEAD WO INDICATIONS: Head trauma, mod-severe TECHNIQUE: Noncontrast 4.5 mm thick angled axial sections acquired from the foramen magnum to the vertex. For r adiation dose reduction, the following was used: automated exposure control, adjustment of mA and/or kV according to patient size. COMPARISON: CT head, 02/17/2023. FINDINGS: Image quality: Excellent. CSF spaces: There is late acute or subacute subdural hematoma along the right frontoparietal area me asuring 4.33 mm in thickness. No significant mass effect. Trace of acute subdural hematoma seen along the right tentorium. A small acute intraventricular blood is present in the left lateral ventricle. Basal cisterns are patent. Ventricles are symmetrical in size and shape. Brain: No midline shift. No intracranial masses or hemorrhage. Moderate cerebral volume loss and pe riventricular white matter chronic small vessel ischemic changes [place]-white matter interface is idalia l. Skull and face: Calvarium and visualized facial bones are intact, without suspicious lesions. Sinuses: Visualized sinuses and mastoids are clear. IMPRESSION: There is acute intracranial bleed. 1. Small subcutaneous hematoma along the right supracondylar cyst measuring 4.3 mm, which may be rela angela acute or subacute. 2. Trace amount of acute subdural hematoma along the right tentorium. 3. Small intraventricular bleed in the left lateral ventricle. No significant discrepancy with the preliminary interpretation. Reviewed by: Rossi Barahona MD on 04/04/2023 8:40 AM PDT Approved by: Rossi Barahona MD on 04/04/2023 8:40 AM PDT Station ID: [id number]
--- NOTE | 2023-04-04 08:52 | CT Report ---
PROCEDURE: HEAD WO INDICATIONS: repeat head CT - SDH and IVH on prior TECHNIQUE: Noncontrast 4.5 mm thick angled axial sections acquired from the foramen magnum to the vertex. For r adiation dose reduction, the following was used: automated exposure control, adjustment of mA and/or kV according to patient size. COMPARISON: CT head, 04/04/2023 at 2:54 AM. FINDINGS: Image quality: Excellent. CSF spaces: Small right frontal subdural hematoma is again noted measuring up to 4.3 mm in thickness . A small subdural hematoma is also present along the right tentorium measuring 3.5 mm, slightly incr eased (previously 2.9 mm). Small intraventricular blood within the left lateral ventricle appears unc hanged. Basal cisterns are patent. Ventricles are prominent in size but symmetrical in shape. Brain: Trace left midline shift measuring 2 mm. Moderate cerebral volume loss and periventricular wh ite matter chronic chronic small vessel disease. Skull and face: Calvarium and visualized facial bones are intact, without suspicious lesions. Sinuses: Visualized sinuses and mastoids are clear. IMPRESSION: 1. No significant change in the small subdural hematoma along the right cerebral convexity. 2. Small acute subdural hematoma along the right tentorium has slightly increased. 3. No change in small acute intraventricular bleed in the left lateral ventricle. 4. There is now 2 mm leftward midline shift. No significant discrepancy with the preliminary interpretation. Reviewed by: Rossi Barahona MD on 04/04/2023 8:50 AM PDT Approved by: Rossi Barahona MD on 04/04/2023 8:50 AM PDT Station ID: [id number]
--- NOTE | 2023-04-04 08:54 | XRAY Report ---
PROCEDURE: Shoulder 3 View RT INDICATIONS: fall, should p TECHNIQUE: 3 views of the shoulder were acquired. COMPARISON: None. FINDINGS: Bones: No fractures or dislocations. No suspicious bony lesions. Superior migration of humeral head at the glenohumeral joint. Mild acromioclavicular and glenohumeral joint degeneration. Visualized ri bs appear intact. Soft tissues: Calcifications over the humeral head suggesting rotator cuff calcific tendinitis. IMPRESSION: 1. No acute osseous abnormality. 2. Mild degenerative joint disease. 3. Suspect calcific rotator cuff tendinopathy. No significant discrepancy with the preliminary interpretation. Reviewed by: Rossi Barahona MD on 04/04/2023 8:52 AM PDT Approved by: Rossi Barahona MD on 04/04/2023 8:52 AM PDT Station ID: [id number]
--- NOTE | 2023-04-04 08:56 | XRAY Report ---
PROCEDURE: Elbow 2 View RT INDICATIONS: fall, swelling TECHNIQUE: 2 views of the elbow were acquired. COMPARISON: None. FINDINGS: Bones: There is a olecranon fracture with mild displacement. No suspicious bony lesions. Soft tissues: Moderate elbow effusion. No suspicious soft tissue calcifications or masses. Marked soft tissue edema consistent with soft tissue contusion. IMPRESSION: Mildly displaced olecranon fracture. No significant discrepancy with the preliminary interpretation. Reviewed by: Rossi Barahona MD on 04/04/2023 8:54 AM PDT Approved by: Rossi Barahona MD on 04/04/2023 8:54 AM PDT Station ID: [id number]
--- NOTE | 2023-04-04 09:01 | CT Report ---
PROCEDURE: CERVICAL SPINE WO INDICATIONS: Neck trauma, midline tenderness TECHNIQUE: Noncontrast 3 mm thick sections acquired from the skull base to the T4 level. Sagittal and coronal r eformats were then constructed. For radiation dose reduction, the following was used: automated exp osure control, adjustment of mA and/or kV according to patient size. COMPARISON: CT cervical spine, 02/17/2023, 09/06/2022 . FINDINGS: Image quality: Mild motion artifact. Bones: No fractures or dislocations. Loss of normal cervical lordosis. There is fusion at C4-C5. De generative disc disease, severe at C3-C4, C5-C6 and C6-C7. Severe facet arthropathy bilaterally, most pronounced at C2-C3 and C3-C4. Visualized superior ribs are intact. Soft tissues: Prevertebral soft tissues are normal in thickness. No paravertebral hematomas. No ap ical pneumothoraces. Moderate to severe bilateral calcifications of carotid arteries bilaterally. IMPRESSION: 1. No acute fractures. 2. Degenerative changes as described. No significant discrepancy with the preliminary interpretation. Reviewed by: Rossi Barahona MD on 04/04/2023 9:00 AM PDT Approved by: Rossi Barahona MD on 04/04/2023 9:00 AM PDT Station ID: [id number]
--- NOTE | 2023-04-04 09:08 | CT Report ---
PROCEDURE: MAXILLOFACIAL WO INDICATIONS: Facial trauma TECHNIQUE: Noncontrast 1.5 mm thick axial images acquired from the mandible through the frontal sinuses, with co nayeli and sagittal reformatting. For radiation dose reduction, the following was used: automated ex posure control, adjustment of mA and/or kV according to patient size. COMPARISON: CT maxillofacial bone, 09/06/2022 and 04/05/2020. FINDINGS: Image quality: Excellent. Bones and teeth: Comminuted nasal bone fractures bilaterally, unchanged. There is rightward nasal se ptum deviation. Orbital rodrigues are intact. Sinus rodrigues show no fracture or deformity. Visualized portions of the man dible demonstrate no fractures or subluxation. Zygomatic arches are intact. Pterygoid plates are in tact. Visualized portions of the skull base and auditory canals are intact. Sinuses: Paranasal sinuses are aerated, without fluid levels, mucosal thickening, or mucoceles. Mas toid air cells are aerated. Soft tissues: Periorbital and premaxillary soft tissue swelling, right greater than left. No enlarge d lymph nodes. No soft tissue lacerations or debris. Vascular: Visualized vascular structures appear normal in the absence of contrast. Bony vascular fo ramina and canals are intact. IMPRESSION: 1. Chronic comminuted nasal bone fractures bilaterally. 2. No acute fractures. No significant discrepancy with the preliminary interpretation. Reviewed by: Rossi Barahona MD on 04/04/2023 9:07 AM PDT Approved by: Rossi Barahona MD on 04/04/2023 9:07 AM PDT Station ID: [id number]
--- NOTE | 2023-04-04 09:25 | CT Report ---
PROCEDURE: CHEST W INDICATIONS: fall CONTRAST: Omni 300 100ml TECHNIQUE: After the administration of intravenous contrast, 1 mm axial images were acquired from the pulmonary apices through the posterior costophrenic angles. Axial 5 mm soft tissue kernel reconstructions were performed as well as 8 mm axial MIP and coronal and sagittal 5 mm reformations. For radiation dose reduction, the following was used: automated exposure control, adjustment of mA and/or kV according to patient size. COMPARISON: CT chest with, 02/17/2023. FINDINGS: Image quality: Excellent. Lungs and pleura: Chronic pleural thickening of the major fissures, most pronounced in the left major fissure with associated pleural calcification. Bilateral subpleural scarring. There is moderate emph ysema. No consolidation. No pleural effusions. No pneumothorax. No suspicious pulmonary nodules whic h require follow up. Mediastinum: Heart size is normal. No pericardial effusions. No mediastinal adenopathy by size criter ia. The pulmonary outflow tract is enlarged measuring 4 cm in diameter. Moderate aortic calcification . Small hiatal hernia. Chest wall and lower neck: Thyroid is unremarkable. No axillary or supraclavicular adenopathy by size . Bones: Old healing left 10th, 11th and 12th rib fractures are noted. There is an acute left 10th rib fracture is mild displacement (series 4 image [id number]). Scoliosis and degenerative changes in thoracic sp ine. No aggressive osseous abnormality. Upper Abdomen: Unremarkable. IMPRESSION: 1. Acute left 10th rib fracture superimposed on chronic healing left 10th, 11th and 12th rib fracture s. No hemothorax or pneumothorax. 2. Chronic pleural thickening and calcification. 3. Bilateral subpleural scarring. 4. Moderate emphysema. 5. Enlargement of the pulmonary outflow tract suggesting pulmonary hypertension. No significant discrepancy with the preliminary interpretation. Reviewed by: Rossi Barahona MD on 04/04/2023 9:24 AM PDT Approved by: Rossi Barahona MD on 04/04/2023 9:24 AM PDT Station ID: [id number]
[2023-04-04 09:26] VITALS: BP 100/52
--- NOTE | 2023-04-04 09:41 | CT Report ---
PROCEDURE: ABDOMEN/PELVIS W INDICATIONS: fall CONTRAST: Omni 300 100ml TECHNIQUE: After the administration of IV contrast, 5 mm thick sections acquired from the diaphragms to the symp hysis. 5 mm thick coronal and sagittal reformats were acquired. For radiation dose reduction, the f ollowing was used: automated exposure control, adjustment of mA and/or kV according to patient size. COMPARISON: CT abdomen and pelvis with, 02/17/2023. FINDINGS: Image quality: Excellent. Lung bases and heart: Unremarkable. Liver: No solid mass. Gallbladder and biliary tree: Spleen: No splenomegaly. Pancreas: No pancreatic ductal dilation. Adrenals: No adrenal nodule. Kidneys and ureters: No hydronephrosis. No renal cystic lesion which requires follow up. No solid mas s. There is a 3.3 cm simple cyst in the lateral cortex of the left kidney. Bowel and peritoneum: No bowel distension. No pathologic free fluid. There is a large amount stool in colon. Lymph nodes: No central or retroperitoneal adenopathy. Vessels: No infrarenal aortic aneurysm. Severe atherosclerotic calcifications. PELVIS Reproductive organs: Unremarkable. Bladder: No wall thickness, accounting for underdistension. Pelvic lymph nodes: No pelvic adenopathy by size criteria. Bones: No aggressive osseous abnormality. Severe levoscoliosis. 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 Left rib fractures are noted (please see separate CT chest report). Other: No significant ventral or inguinal hernia. IMPRESSION: 1. No acute traumatic visceral injuries in abdomen or pelvis. 2. Severe scoliosis and degenerative changes in lumbar spine. No significant discrepancy with the preliminary interpretation. Reviewed by: Rossi Barahona MD on 04/04/2023 9:39 AM PDT Approved by: Rossi Barahona MD on 04/04/2023 9:39 AM PDT Station ID: [id number]
--- NOTE | 2023-04-04 09:44 | ED Physician Documentation ---
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 The patient was found to have a few areas of subarachnoid and subdural hemorrhage and also, a nondisplaced fracture of her right elbow. The patient was splinted for the elbow fracture and neurosurgery at [facility] was consulted regarding the intracranial hemorrhages. The neurosurgeon had reviewed the images and felt that the bleeds were very small and unlikely to need neurosurgical intervention. However, he had requested a repeat CT a couple of hours after the conversation to be sure that the bleeds were not progressing. This was done at about 7:00 this morning and was pending at the time of signout. The CT time was roughly [address], And was read by the radiologist is stable with no significant changes. The patient had declined analgesia overnight and was reporting that she was overall comfortable. She was able to request to go to the bathroom when she needed to. Report was given to [facility], as patient is a resident in their assisted living facility. They were comfortable taking her back and stated that they could increase the level of care for her if needed. I did also speak with the patient's son Mr. Zhang Titus at his cell number, which is [phone]. He was agreeable to the plan and did request that we update his number in our system to reflect the cell phone. I have given this information to registration to input in the system. The patient was transported back to [facility] via ambulance. We have communicated with both the assisted living facility and the patient's son that the patient will need orthopedic follow-up for her elbow, and I have given her the follow-up information for our local orthopedic clinic. Final impression: Please see original note by Dr. Davis Disposition: Home in stable and improved condition.
== END 2023-04-04 09:49 | disposition home or self-care (01) ==
LOC: ED 02:19
DX: S06.5XAA Traumatic subdural hemorrhage with loss of consciousness status unknown, initial encounter (principal); S42.401A Unspecified fracture of lower end of right humerus, initial encounter for closed fracture; T14.8XXA Other injury of unspecified body region, initial encounter; W01.10XA Fall on same level from slipping, tripping and stumbling with subsequent striking against unspecified object, initial encounter; R29.6 Repeated falls; Z91.81 History of falling; E87.1 Hypo-osmolality and hyponatremia; D64.9 Anemia, unspecified; Z66 Do not resuscitate; I50.9 Heart failure, unspecified; E78.00 Pure hypercholesterolemia, unspecified; J44.9 Chronic obstructive pulmonary disease, unspecified; Z20.822 Contact with and (suspected) exposure to COVID-19; Z79.899 Other long term (current) drug therapy; Z79.51 Long term (current) use of inhaled steroids
CPT/HCPCS: 36415; 70450; 70486; 71260; 72125; 73030; 73070; 74177; 80053; 83690; 85025; 85610; 85730; 86850; 86900; 86901; 87635; 96374; 96375; 96376; 99284; G0480; J1170; Q9967; 80320

== ENCOUNTER 2023-04-04 09:39 | Outpatient (CLI) | payer MEDICARE, OTHER | END 2023-04-04 23:59 | disposition home or self-care (01) | LOC: EMS 09:39 | PROVIDERS: ATTEND Emergency Medicine | DX: S06.309A Unspecified focal traumatic brain injury with loss of consciousness of unspecified duration, initial encounter (principal); S42.401A Unspecified fracture of lower end of right humerus, initial encounter for closed fracture; R41.0 Disorientation, unspecified; W06.XXXA Fall from bed, initial encounter; Y92.092 Bedroom in other non-institutional residence as the place of occurrence of the external cause; Z99.81 Dependence on supplemental oxygen; F03.90 Unspecified dementia, unspecified severity, without behavioral disturbance, psychotic disturbance, mood disturbance, and anxiety | CPT/HCPCS: A0425; A0428 ==